=== PATIENT | female | born 1935 ===

== ENCOUNTER 2017-03-22 12:30 | Emergency (ER) | payer OTHER ==
[2017-03-22 12:39] VITALS: TEMP 98.1
[2017-03-22] MEDS ORDERED: Albuterol-Ipratrop 3 mg / 0.5 (3 ml) UD IH STA (13:38)
[2017-03-22 14:07] LABS: BASO # 0.1 K/uL (0.0-0.2); EOS # 0.3 K/uL (0.0-0.7); EOS % 4.7 % (0.0-4.0); HEMATOCRIT 27.7 % (34.0-47.0); LYMPH # 1.6 K/uL (1.0-4.3); LYMPH % 22.8 % (20.0-40.0); MEAN CELL VOLUME 70.3 fL (81.0-99.0); MEAN CORPUSCULAR HEMOGLOBIN 22.4 pg (27.0-31.0); MEAN CORPUSCULAR HGB CONC 31.8 g/dL (33.0-37.0); MEAN PLATELET VOLUME 8.6 fL (7.2-11.7); MONO # 0.9 K/uL (0.0-0.8); RED CELL DISTRIBUTION WIDTH 15.8 % (11.5-14.5)
[2017-03-22] MEDS ORDERED: Albuterol-Ipratrop 3 mg / 0.5 (3 ml) UD ONE (14:07)
[2017-03-22 14:19] LABS: CHLORIDE 100 mmol/L (98-107); POTASSIUM 4.6 mmol/L (3.6-5.2); SODIUM 137 mmol/L (132-148)
[2017-03-22 14:21] LABS: ALB/GLOB RATIO 1.2 (1.0-2.1); AST/SGOT 19 U/L (14-36); BILIRUBIN,TOTAL 0.5 mg/dL (0.2-1.3); CARBON DIOXIDE 22 mmol/L (22-30); GFR AFRICAN-AMERICAN > 60
[2017-03-22 14:22] LABS: ALKALINE PHOSPHATASE 57 U/L (38-126); ALT/SGPT 16 U/L (9-52); BLOOD UREA NITROGEN 24 mg/dL (7-17); CALCIUM 8.8 mg/dl (8.6-10.4); GLUCOSE,RANDOM 236 mg/dL (65-105); MAGNESIUM 1.8 mg/dL (1.6-2.3)
--- NOTE | 2017-03-22 14:39 | RAD ---
PROCEDURE: CHEST RADIOGRAPH, 1 VIEW. Portable study 13:40. HISTORY: Cough COMPARISON: None available. FINDINGS: LUNGS: Clear. PLEURA: No pneumothorax or pleural fluid seen. CARDIOVASCULAR: No radiographic findings to suggest acute or significant cardiovascular disease. OSSEOUS STRUCTURES: No significant abnormalities. VISUALIZED UPPER ABDOMEN: Normal. OTHER FINDINGS: None. IMPRESSION: No active disease.
--- NOTE | 2017-03-22 15:48 | C.PDOC ---
Time Seen by Provider: 03/22/17 13:28 Chief Complaint (Nursing): Cough, Cold, Congestion History Per: Patient, Family Onset/Duration Of Symptoms: Days (about 1 week) Current Symptoms Are (Timing): Still Present Associated Symptoms: Cough, Sputum Severity: Moderate Additional History Per: Prior Records Past Medical History Reviewed: Historical Data, Nursing Documentation, Vital Signs Vital Signs: Last Vital Signs Temp 98.1 F 03/22/17 12:39 Pulse 71 03/22/17 14:59 Resp 20 03/22/17 14:59 BP 162/45 H 03/22/17 14:59 Pulse Ox 97 03/22/17 14:59 - Medical History PMH: Arthritis, Diabetes, HTN, Hypercholesterolemia, Osteoporosis Family History: States: Unknown Family Hx - Social History Hx Tobacco Use: No Hx Alcohol Use: No Hx Substance Use: No - Immunization History Hx Tetanus Toxoid Vaccination: No Hx Influenza Vaccination: No Hx Pneumococcal Vaccination: No Review Of Systems Except As Marked, All Systems Reviewed And Found Negative. Constitutional: Negative for: Fever, Weakness ENT: Positive for: Nose Congestion, Throat Pain Cardiovascular: Negative for: Chest Pain Respiratory: Positive for: Cough, Sputum. Negative for: Shortness of Breath, Hemoptysis Gastrointestinal: Negative for: Vomiting, Abdominal Pain Musculoskeletal: Negative for: Neck Pain, Back Pain, Leg Pain Skin: Negative for: Rash Neurological: Negative for: Weakness, Numbness, Seizures, Altered Mental Status Physical Exam - Physical Exam Appears: Non-toxic, No Acute Distress Skin: Normal Color, Warm, Dry, No Rash Head: Atraumatic, Normacephalic Eye(s): bilateral: PERRL, EOMI Throat: Normal Neck: Normal ROM, Supple Cardiovascular: Rhythm Regular Respiratory: No Accessory Muscle Use, Rhonchi (left) Gastrointestinal/Abdominal: Soft, No Tenderness Back: No CVA Tenderness Extremity: Normal ROM, No Pedal Edema, No Calf Tenderness Neurological/Psych: Oriented x3, Normal Motor, Normal Sensation ED Course And Treatment - Laboratory Results Result Diagrams: 03/22/17 13:57 03/22/17 13:57 Interpretation Of Abnormal: Anemia ECG: Interpreted By Me, Viewed By Me ECG Rhythm: Sinus Rhythm, 1st Degree HB, Nonspecific Changes ECG Interpretation: No Acute Changes Rate From EC O2 Sat by Pulse Oximetry: 97 Pulse Ox Interpretation: Normal - Radiology CXR: Viewed By Me, Read By Radiologist CXR Interpretation: Yes: No Acute Disease Progress - Interventions Interventions:: Observation - Medications Administered Inhaled nebulized: Anticholinergic, Beta-2 agonist - Data Reviewed Data Reviewed: Lab, Diagnostic imaging, EKG, Old records - Patient Status Patient status: Mostly improved - Continuity of Care Discussed patient case with:: Patient, Family-HIPPA compliant, ED Nurse - Patient Plan Patient Plan: Discharge, F/U with PCP, Continue present meds Disposition Counseled Patient/Family Regarding: Studies Performed, Diagnosis, Need For Followup, Rx Given - Disposition Referrals: Heath Morales MD [Staff Provider] - Disposition: HOME/ ROUTINE Disposition Time: 15:48 Condition: IMPROVED Additional Instructions: Follow up with your doctor within 1-2 days for further evaluation and treatment. Return to the ER if you develop shortness of breath, chest pain, fever, dizziness, worsening of symptoms or if you have any other concerns. Prescriptions: Albuterol HFA [Ventolin HFA 90 mcg/actuation (8 g)] 2 puff IH Q4 PRN #1 unit PRN Reason: Cough And Congestion Azithromycin 1 tab PO DAILY #4 tab Loratadine [Claritin] 10 mg PO DAILY #30 tab Multivit with Iron-Minerals [Centravites 50 Plus] 1 each PO DAILY #30 tablet Instructions: Acute Bronchitis (ED) Print Language: CHINESE - Clinical Impression Clinical Impression: Bronchitis, Anemia
[2017-03-22 16:02] VITALS: BP 169/49; PULSE 70; RESP 18; O2SAT 98
== END 2017-03-22 16:02 | disposition home or self-care (01) ==
LOC: C.ER 12:30
DX: J40 Bronchitis, not specified as acute or chronic (principal); D64.9 Anemia, unspecified

== ENCOUNTER 2017-09-10 12:54 | Inpatient (IN) | payer OTHER ==
[2017-09-10] MEDS ORDERED: Sodium Chloride 0.9% 1,000 ML IV ONE ×2 (13:36→17:32)
[2017-09-10 14:05] LABS: BASO % 0.6 % (0.0-2.0); EOS # 0.2 K/uL (0.0-0.7); EOS % 3.4 % (0.0-4.0); HEMATOCRIT 28.3 % (34.0-47.0); LYMPH # 1.3 K/uL (1.0-4.3); LYMPH % 25.5 % (20.0-40.0); MEAN CELL VOLUME 71.7 fL (81.0-99.0); MEAN CORPUSCULAR HEMOGLOBIN 22.5 pg (27.0-31.0); MEAN CORPUSCULAR HGB CONC 31.4 g/dL (33.0-37.0); MEAN PLATELET VOLUME 9.1 fL (7.2-11.7); MONO # 0.7 K/uL (0.0-0.8); MONO % 13.3 % (0.0-10.0); NRBC % 0.1 % (0.0-2.0); RED CELL DISTRIBUTION WIDTH 16.2 % (11.5-14.5); WHITE BLOOD COUNT 5.2 K/uL (4.8-10.8)
[2017-09-10 14:14] LABS: INR 0.9
[2017-09-10 14:18] LABS: VENOUS BLOOD GAS BASE EXCESS -6.2 mmol/L (0.0-2.0); VENOUS BLOOD GAS PCO2 36 mmHg (40-60); VENOUS BLOOD PH 7.33 (7.32-7.43)
[2017-09-10 14:25] LABS: BILIRUBIN,TOTAL 0.4 mg/dL (0.2-1.3); CALCIUM 8.5 mg/dl (8.6-10.4); POTASSIUM 4.5 mmol/L (3.6-5.2); TOTAL PROTEIN 8.3 g/dL (6.3-8.3)
[2017-09-10 15:03] LABS: URINE BILIRUBIN NEGATIVE (NEGATIVE); URINE BLOOD NEGATIVE (NEGATIVE); URINE COLOR Yellow (YELLOW); URINE GLUCOSE (UA) NORMAL (Normal); URINE KETONE NEGATIVE (NEGATIVE); URINE LEUKOCYTE ESTERASE NEG Leu/uL (Negative); URINE PROTEIN 1+ mg/dL (NEGATIVE); URINE UROBILINOGEN NORMAL mg/dL (0.2-1.0); WBC URINE < 1 /hpf (0-5)
[2017-09-10 15:05] LABS: TROPONIN I 0.646 ng/mL (0.00-0.120)
[2017-09-10] MEDS ORDERED: Aspirin 325 mg EC Tablets PO STA (16:20)
--- NOTE | 2017-09-10 16:32 | RAD ---
PROCEDURE: CHEST RADIOGRAPH, 1 VIEW HISTORY: Hypotension COMPARISON: Comparison chest 03/22/2017 FINDINGS: LUNGS: Minor bibasilar atelectasis. PLEURA: There is slight blunting of the left CP angle which could be due to patient positioning and overlying breast tissue artifact however the possibility of small effusion or localized pleural thickening not excluded CARDIOVASCULAR: Heart size is mildly enlarged. OSSEOUS STRUCTURES: Degenerative changes both shoulder girdles. Mild multilevel degenerative spondylosis of the thoracic spine. The VISUALIZED UPPER ABDOMEN: Normal. OTHER FINDINGS: None. IMPRESSION: Minor bibasilar atelectasis. Slight blunting left CP angle could be due to patient positioning and overlying breast tissue artifact however possibility of a small effusion localized pleural thickening not excluded
--- NOTE | 2017-09-10 16:45 | C.PDOC ---
Time Seen by Provider: 09/10/17 13:22 Chief Complaint (Nursing): Dizziness/Lightheaded History Per: Patient, Family, Senior Care Specialist History/Exam Limitations: language barrier Onset/Duration Of Symptoms: Days (4), Waxing/Waning Current Symptoms Are (Timing): Still Present Current Symptoms: Generalized weakness Associated Symptoms Preceding Syncopal Episode: Lightheadedness, Worse With Standing Severity: Moderate Additional History Per: Prior Records - Symptoms Of CVA Recent Head Trauma: No Past Medical History Reviewed: Historical Data, Nursing Documentation, Vital Signs Vital Signs: Last Vital Signs Temp 97.6 F 09/10/17 13:52 Pulse 65 09/10/17 16:41 Resp 16 09/10/17 16:41 BP 124/34 L 09/10/17 16:41 Pulse Ox 96 09/10/17 16:41 - Medical History PMH: Anemia, Arthritis, Diabetes, HTN, Hypercholesterolemia, Osteoporosis Family History: States: Unknown Family Hx - Social History Hx Tobacco Use: No Hx Alcohol Use: No Hx Substance Use: No - Immunization History Hx Tetanus Toxoid Vaccination: No Hx Influenza Vaccination: No Hx Pneumococcal Vaccination: No Review Of Systems Except As Marked, All Systems Reviewed And Found Negative. Constitutional: Positive for: Weakness, Malaise. Negative for: Fever Cardiovascular: Negative for: Chest Pain Respiratory: Negative for: Shortness of Breath, Hemoptysis Gastrointestinal: Positive for: Nausea. Negative for: Abdominal Pain, Diarrhea Genitourinary: Negative for: Dysuria Musculoskeletal: Negative for: Neck Pain, Back Pain Skin: Negative for: Rash Neurological: Negative for: Weakness, Seizures, Headache Physical Exam - Physical Exam Appears: Other (Malaised) Skin: Warm, Dry Head: Atraumatic, Normacephalic Eye(s): bilateral: PERRL, EOMI Neck: Normal ROM, Supple Cardiovascular: Rhythm Regular Respiratory: Normal Breath Sounds, No Accessory Muscle Use Gastrointestinal/Abdominal: Soft, No Tenderness Rectal: Heme Negative, No Mass Back: No CVA Tenderness Extremity: Normal ROM Neurological/Psych: Oriented x3, Normal Motor, Normal Sensation ED Course And Treatment - Laboratory Results Result Diagrams: 09/10/17 13:52 09/10/17 13:52 Interpretation Of Abnormal: Acute renal failure. Positive troponin. Hgb is stable. ECG: Interpreted By Me, Viewed By Me ECG Rhythm: Sinus Rhythm, 1st Degree HB, Nonspecific Changes ECG Interpretation: No Acute Changes Rate From EC O2 Sat by Pulse Oximetry: 96 Pulse Ox Interpretation: Normal - Radiology CXR: Viewed By Me, Read By Radiologist CXR Interpretation: Yes: Other (Possible small left pleural effusion) Progress Note: Pt was found to be hypotensive upon arrival, but BP improved after 1L IV bolus of NS. - Physician Consult Information Physician Contacted: Elvis Dunbar (Cardiology) Outcome Of Conversation: He will consult. He recommeds giving pt aspirin and admitting to telemetry. Progress - Interventions Interventions:: Observation, Intravenous fluid - Medications Administered Oral: Aspirin - Data Reviewed Data Reviewed: Lab, Diagnostic imaging, EKG, Old records - Patient Status Patient status: Partially improved - Critical Care Citical Care: Excluding Proc Time Critical Care Time: 45 minutes - Continuity of Care Discussed patient case with:: Patient, Family-HIPPA compliant, ED Nurse, Covering for PMD Discussed pt. case with emergency management consultant/specialty: Cardiology - Patient Plan Patient Plan: Admission, Telemetry Disposition Discussed With : Poly Weaver Comment: She accepted pt on hospitalist service. Doctor Will See Patient In The: Hospital Counseled Patient/Family Regarding: Studies Performed, Diagnosis - Disposition Disposition: HOSPITALIZED Disposition Time: 16:49 Condition: FAIR - Clinical Impression Clinical Impression: Transient hypotension, Elevated troponin I level, Acute renal failure, Anemia
[2017-09-10] MEDS ORDERED: Sodium Chloride 0.9% 1,000 ML IV SCH ×2 (17:00→21:15)
[2017-09-10] MEDS ORDERED: Dextrose 50% SYRINGE Inj (50 ml) IV PRN (17:21)
[2017-09-10] MEDS ORDERED: Glucagon Recombinant 1 mg Inj IM PRN (17:21)
--- NOTE | 2017-09-10 18:03 | CP.PCM.HP ---
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 She denies all symptoms currently other than generalized muscle aches/ pain. She denies fevers/chills, LU, CP, SOB, abdominal pain, N/V/D, dysuria/freq /urg, or lower extremity swelling. The patient has lower extremity pain on baseline, which she states is not worse than usual. As per family at bedside, they say that she has been sleeping a lot more than normal the last few months and just doesn't seem like herself. They also state that her clothes arent fitting because she isn't eating as much as she used to, and they're essentially falling off of her. Pmhx: HTN, DM, HLD, "angina (on meds) Allergies: none Surgeries: lower extremity surgery; could not qualify which ones; patient cannot bend knees at baseline Meds: Amlodipine, Hctz/Losartan, Hydralazine, Lasix, Metformin, Glipizide, Statin Social: lives with daughter; can walk up stairs independently at baseline with cane; cooks for self, feeds self, changes self, bathes self, indepdent in ADL and most IADL at baseline Present on Admission - Present on Admission Any Indicators Present on Admission: Yes History of DVT/PE: No History of Uncontrolled Diabetes: Yes Urinary Catheter: No Decubitus Ulcer Present: No Review of Systems - Constitutional Constitutional: absent: Anorexia, Chills - EENT Eyes: absent: Blind Spots, Blurred Vision Ears: absent: Decreased Hearing Nose/Mouth/Throat: absent: Epistaxis, Nasal Congestion - Breasts Breasts: absent: Change in Shape - Cardiovascular Cardiovascular: absent: Acrocyanosis, Chest Pain - Respiratory Respiratory: absent: Cough, Dyspnea, Hemoptysis - Gastrointestinal Gastrointestinal: absent: Abdominal Pain, Belching - Genitourinary Genitourinary: Nocturia, Urinary Incontinence, Urinary Urgency. absent: Change in Urinary Stream, Freq UTI - Musculoskeletal Musculoskeletal: Abnormal Gait, Arthralgias - Neurological Neurological: absent: Abnormal Gait Additional comments: walks with cane - Psychiatric Psychiatric: Abnormal Sleep Pattern (sleeping more than usual ) - Endocrine Endocrine: Cold Intolorance, Fatigue Past Patient History - Infectious Disease Hx of Infectious Diseases: None - Past Social History Smoking Status: Never Smoked - CARDIAC Hx Hypercholesterolemia: Yes Hx Hypertension: Yes - ENDOCRINE/METABOLIC Hx Endocrine Disorders: Yes Hx Diabetes Mellitus Type 2: Yes - HEMATOLOGICAL/ONCOLOGICAL Hx Anemia: Yes - MUSCULOSKELETAL/RHEUMATOLOGICAL Hx Arthritis: Yes Hx Osteoporosis: Yes - PSYCHIATRIC Hx Substance Use: No - SURGICAL HISTORY Hx Surgeries: Yes Hx Orthopedic Surgery: Yes (LEFT KNEE) Other/Comment: Right leg - ANESTHESIA Hx Anesthesia: Yes Hx Anesthesia Reactions: No Meds Allergies/Adverse Reactions: Allergies Allergy/AdvReac Type Severity Reaction Status Date / Time No Known Allergies Allergy Verified 09/10/17 13:16 Physical Exam - Constitutional Appears: Non-toxic, Chronically Ill - Head Exam Head Exam: ATRAUMATIC - Eye Exam Eye Exam: EOMI, PERRL - ENT Exam ENT Exam: Mucous Membranes Dry - Neck Exam Neck exam: Positive for: Full Rom. Negative for: Lymphadenopathy - Respiratory Exam Respiratory Exam: Clear to Auscultation Bilateral, NORMAL BREATHING PATTERN ( patient is in reverse trendelenberg with no SOB; patient should be sitting more upright in bed ). absent: Rales, Rhonchi, Wheezes - Cardiovascular Exam Cardiovascular Exam: REGULAR RHYTHM, +S1, +S2 - GI/Abdominal Exam GI & Abdominal Exam: Normal Bowel Sounds, Soft. absent: Organomegaly, Pulsatile Mass, Rebound, Rigid, Tenderness - Extremities Exam Extremities exam: Negative for: calf tenderness (patient has visible muscle spasms on exam; fasiculations ) - Back Exam Back exam: NORMAL INSPECTION. absent: CVA tenderness (L), CVA tenderness (R) - Neurological Exam Additional comments: patient is lethargic but arousable to verbal cues - Psychiatric Exam Psychiatric exam: Flat Affect - Skin Skin Exam: Warm Results - Vital Signs Recent Vital Signs: Last Vital Signs Temp 97.6 F 09/10/17 13:52 Pulse 65 09/10/17 16:41 Resp 16 09/10/17 16:41 BP 124/34 L 09/10/17 16:41 Pulse Ox 96 09/10/17 16:50 - Labs Result Diagrams: 09/10/17 13:52 09/10/17 13:52 Labs: Laboratory Results - last 24 hr 09/10/17 09/10/17 09/10/17 13:04 13:52 13:52 WBC 5.2 RBC 3.95 Hgb 8.9 L Hct 28.3 L MCV 71.7 L MCH 22.5 L MCHC 31.4 L RDW 16.2 H Plt Count 197 MPV 9.1 Neut % (Auto) 57.2 Lymph % (Auto) 25.5 [place] % (Auto) 13.3 H Eos % (Auto) 3.4 Baso % (Auto) 0.6 Neut # 3.0 Lymph # 1.3 [place] # 0.7 Eos # 0.2 Baso # 0.0 PT INR APTT pO2 VBG pH VBG pCO2 VBG HCO3 VBG Total CO2 VBG O2 Sat (Calc) VBG Base Excess VBG Potassium Glucose Lactate Sodium 131 L Potassium 4.5 Chloride 97 L Carbon Dioxide 20 L Anion Gap 18 BUN 57 H Creatinine 3.0 H Est GFR ( Amer) 18 Est GFR (Non-Af Amer) 15 POC Glucose (mg/dL) 135 H Random Glucose 106 H Calcium 8.5 L Total Bilirubin 0.4 AST 33 ALT 41 Alkaline Phosphatase 62 Troponin I 0.6460 H* NT-Pro-B Natriuret Pep 39361 H Total Protein 8.3 Albumin 4.1 Globulin 4.2 H Albumin/Globulin Ratio 1.0 Triglycerides Cholesterol HDL Cholesterol Venous Blood Potassium Urine Color Urine Clarity Urine pH Ur Specific Mccleary Urine Protein Urine Glucose (UA) Urine Ketones Urine Blood Urine Nitrate Urine Bilirubin Urine Urobilinogen Ur Leukocyte Esterase Urine WBC (Auto) Stool Occult Blood 09/10/17 09/10/17 09/10/17 13:52 14:15 14:46 WBC RBC Hgb Hct MCV MCH MCHC RDW Plt Count MPV Neut % (Auto) Lymph % (Auto) [place] % (Auto) Eos % (Auto) Baso % (Auto) Neut # Lymph # [place] # Eos # Baso # PT 10.3 INR 0.9 APTT 34 pO2 35 VBG pH 7.33 VBG pCO2 36 L VBG HCO3 19.1 VBG Total CO2 20.1 L VBG O2 Sat (Calc) 73.4 H VBG Base Excess -6.2 L VBG Potassium 4.2 Glucose 115 H Lactate 1.1 Sodium 136.0 Potassium Chloride 109.0 H Carbon Dioxide Anion Gap BUN Creatinine Est GFR ( Amer) Est GFR (Non-Af Amer) POC Glucose (mg/dL) Random Glucose Calcium Total Bilirubin AST ALT Alkaline Phosphatase Troponin I NT-Pro-B Natriuret Pep Total Protein Albumin Globulin Albumin/Globulin Ratio Triglycerides Cholesterol HDL Cholesterol Venous Blood Potassium 4.2 Urine Color Yellow Urine Clarity Clear Urine pH 5.0 Ur Specific Mccleary 1.008 Urine Protein 1+ H Urine Glucose (UA) Normal Urine Ketones Negative Urine Blood Negative Urine Nitrate Negative Urine Bilirubin Negative Urine Urobilinogen Normal Ur Leukocyte Esterase Neg Urine WBC (Auto) < 1 Stool Occult Blood 09/10/17 09/10/17 15:10 17:36 WBC RBC Hgb Hct MCV MCH MCHC RDW Plt Count MPV Neut % (Auto) Lymph % (Auto) [place] % (Auto) Eos % (Auto) Baso % (Auto) Neut # Lymph # [place] # Eos # Baso # PT INR APTT pO2 VBG pH VBG pCO2 VBG HCO3 VBG Total CO2 VBG O2 Sat (Calc) VBG Base Excess VBG Potassium Glucose Lactate Sodium Potassium Chloride Carbon Dioxide Anion Gap BUN Creatinine Est GFR ( Amer) Est GFR (Non-Af Amer) POC Glucose (mg/dL) Random Glucose Calcium Total Bilirubin AST ALT Alkaline Phosphatase Troponin I NT-Pro-B Natriuret Pep Total Protein Albumin Globulin Albumin/Globulin Ratio Triglycerides 97 Cholesterol 138 HDL Cholesterol 33 Venous Blood Potassium Urine Color Urine Clarity Urine pH Ur Specific Mccleary Urine Protein Urine Glucose (UA) Urine Ketones Urine Blood Urine Nitrate Urine Bilirubin Urine Urobilinogen Ur Leukocyte Esterase Urine WBC (Auto) Stool Occult Blood Negative Assessment & Plan - Assessment and Plan (Free Text) Assessment: 81yo F admitted for hypotension responsive to fluids, BERYL and polypharmacy BERYL -baseline creatinine .7-1.0 from previous (from March 2017); currently 3.0; check BMP tonight -patient is taking 5 blood pressure lowering drugs, and has not been eating/ drinking normally for few weeks -BP went from 60s/30s to 124/60 after 1L -patient is not retaining from bladder scan; no hx of renal stones; UA clean -Nephrology on board; does not think patient needs dialysis at this time; appreciate recs CHF; most likely chronic however no previous ECHO; most likely acute on chronic -BNP 14k; previous before that was 1k -no SOB, no lower extrem swelling, no CHF on Chest X-Ray -can be 2/2 to extreme dehydration -f/u echo -f/u HbA1c, TSH/Free T4, Lipid Panel Elevated Troponin -Dr. Garcia; Cardiology on Consult; does not think is ACS -patient appears severely dehydrated clinically and on blood work -ROMIx3; initial .604; f/u Q6H HTN hx -held amlodipine 10mg -held losartan/Hctz -held furosemide 40mg -held hydralazine -held isosorbide mononitrate -will monitor HLD hx -Crestor 2.5mg DM hx -Riss Low -Hypoglycemia protocol Unintentional Weight Loss/Failure to Thrive -As per family; patient has not been eating as much as previous and has been more lethargic/forgetful -f/u procal/blood cultures/urine cultures -patient has no hx of dementia however is forgetful on exam -no fam hx of cancer Proph Heparin SC 5000 Q8 Heart Healthy Diet Dispo: patient was accepted to ICU; will continue to monitor there Case discussed and seen with Dr. Weaver Decision To Admit - Pt Status Changed To: Hospital Disposition Of: Inpatient - Admit Certification Admit to Inpatient:: After my assessment, the patient will require hospitalization for at least two midnights. This is because of the severity of symptoms shown, intensity of services needed, and/or the medical risk in this patient being treated as an outpatient. - InPatient: Physician Admission Certification:: NSTEMI BERYL hypotension - . Bed Request Type: ICU Admitting Physician: Poly Weaver <Poly Weaver V - Last Filed: 09/11/17 09:28> Results - Vital Signs Recent Vital Signs: Last Vital Signs Temp 97.8 F 09/11/17 08:00 Pulse 72 09/11/17 08:51 Resp 19 09/11/17 08:51 BP 115/36 L 09/11/17 08:51 Pulse Ox 99 09/11/17 08:51 - Labs Result Diagrams: 09/11/17 03:03 09/11/17 03:03 Labs: Laboratory Results - last 24 hr 09/10/17 09/10/17 09/10/17 13:04 13:52 13:52 WBC 5.2 RBC 3.95 Hgb 8.9 L Hct 28.3 L MCV 71.7 L MCH 22.5 L MCHC 31.4 L RDW 16.2 H Plt Count 197 MPV 9.1 Neut % (Auto) 57.2 Lymph % (Auto) 25.5 [place] % (Auto) 13.3 H Eos % (Auto) 3.4 Baso % (Auto) 0.6 Neut # 3.0 Lymph # 1.3 [place] # 0.7 Eos # 0.2 Baso # 0.0 PT INR APTT pO2 VBG pH VBG pCO2 VBG HCO3 VBG Total CO2 VBG O2 Sat (Calc) VBG Base Excess VBG Potassium Glucose Lactate Sodium 131 L Potassium 4.5 Chloride 97 L Carbon Dioxide 20 L Anion Gap 18 BUN 57 H Creatinine 3.0 H Est GFR ( Amer) 18 Est GFR (Non-Af Amer) 15 POC Glucose (mg/dL) 135 H Random Glucose 106 H Hemoglobin A1c Calcium 8.5 L Iron TIBC % Saturation Total Bilirubin 0.4 AST 33 ALT 41 Alkaline Phosphatase 62 Total Creatine Kinase CK-MB (Mass) Troponin I 0.6460 H* NT-Pro-B Natriuret Pep 00929 H Total Protein 8.3 Albumin 4.1 Globulin 4.2 H Albumin/Globulin Ratio 1.0 Triglycerides Cholesterol LDL Cholesterol Direct HDL Cholesterol Procalcitonin Free T4 TSH 3rd Generation Venous Blood Potassium Urine Color Urine Clarity Urine pH Ur Specific Mccleary Urine Protein Urine Glucose (UA) Urine Ketones Urine Blood Urine Nitrate Urine Bilirubin Urine Urobilinogen Ur Leukocyte Esterase Urine WBC (Auto) Urine Osmolality Ur Random Creatinine Ur Random Sodium Stool Occult Blood 09/10/17 09/10/17 09/10/17 13:52 14:15 14:46 WBC RBC Hgb Hct MCV MCH MCHC RDW Plt Count MPV Neut % (Auto) Lymph % (Auto) [place] % (Auto) Eos % (Auto) Baso % (Auto) Neut # Lymph # [place] # Eos # Baso # PT 10.3 INR 0.9 APTT 34 pO2 35 VBG pH 7.33 VBG pCO2 36 L VBG HCO3 19.1 VBG Total CO2 20.1 L VBG O2 Sat (Calc) 73.4 H VBG Base Excess -6.2 L VBG Potassium 4.2 Glucose 115 H Lactate 1.1 Sodium 136.0 Potassium Chloride 109.0 H Carbon Dioxide Anion Gap BUN Creatinine Est GFR ( Amer) Est GFR (Non-Af Amer) POC Glucose (mg/dL) Random Glucose Hemoglobin A1c Calcium Iron TIBC % Saturation Total Bilirubin AST ALT Alkaline Phosphatase Total Creatine Kinase CK-MB (Mass) Troponin I NT-Pro-B Natriuret Pep Total Protein Albumin Globulin Albumin/Globulin Ratio Triglycerides Cholesterol LDL Cholesterol Direct HDL Cholesterol Procalcitonin Free T4 TSH 3rd Generation Venous Blood Potassium 4.2 Urine Color Yellow Urine Clarity Clear Urine pH 5.0 Ur Specific Mccleary 1.008 Urine Protein 1+ H Urine Glucose (UA) Normal Urine Ketones Negative Urine Blood Negative Urine Nitrate Negative Urine Bilirubin Negative Urine Urobilinogen Normal Ur Leukocyte Esterase Neg Urine WBC (Auto) < 1 Urine Osmolality Ur Random Creatinine Ur Random Sodium Stool Occult Blood 09/10/17 09/10/17 09/10/17 15:10 17:11 17:36 WBC RBC Hgb Hct MCV MCH MCHC RDW Plt Count MPV Neut % (Auto) Lymph % (Auto) [place] % (Auto) Eos % (Auto) Baso % (Auto) Neut # Lymph # [place] # Eos # Baso # PT INR APTT pO2 VBG pH VBG pCO2 VBG HCO3 VBG Total CO2 VBG O2 Sat (Calc) VBG Base Excess VBG Potassium Glucose Lactate Sodium Potassium Chloride Carbon Dioxide Anion Gap BUN Creatinine Est GFR ( Amer) Est GFR (Non-Af Amer) POC Glucose (mg/dL) Random Glucose Hemoglobin A1c Calcium Iron TIBC % Saturation Total Bilirubin AST ALT Alkaline Phosphatase Total Creatine Kinase CK-MB (Mass) Troponin I NT-Pro-B Natriuret Pep Total Protein Albumin Globulin Albumin/Globulin Ratio Triglycerides 97 Cholesterol 138 LDL Cholesterol Direct 82 HDL Cholesterol 33 Procalcitonin < 0.05 L Free T4 TSH 3rd Generation 2.18 Venous Blood Potassium Urine Color Urine Clarity Urine pH Ur Specific Mccleary Urine Protein Urine Glucose (UA) Urine Ketones Urine Blood Urine Nitrate Urine Bilirubin Urine Urobilinogen Ur Leukocyte Esterase Urine WBC (Auto) Urine Osmolality Ur Random Creatinine Ur Random Sodium Stool Occult Blood Negative 09/10/17 09/10/17 09/10/17 17:36 17:36 20:14 WBC RBC Hgb Hct MCV MCH MCHC RDW Plt Count MPV Neut % (Auto) Lymph % (Auto) [place] % (Auto) Eos % (Auto) Baso % (Auto) Neut # Lymph # [place] # Eos # Baso # PT INR APTT pO2 VBG pH VBG pCO2 VBG HCO3 VBG Total CO2 VBG O2 Sat (Calc) VBG Base Excess VBG Potassium Glucose Lactate Sodium Potassium Chloride Carbon Dioxide Anion Gap BUN Creatinine Est GFR ( Amer) Est GFR (Non-Af Amer) POC Glucose (mg/dL) 124 H Random Glucose Hemoglobin A1c 7.8 H Calcium Iron TIBC % Saturation Total Bilirubin AST ALT Alkaline Phosphatase Total Creatine Kinase CK-MB (Mass) Troponin I NT-Pro-B Natriuret Pep Total Protein Albumin Globulin Albumin/Globulin Ratio Triglycerides Cholesterol LDL Cholesterol Direct HDL Cholesterol Procalcitonin Free T4 1.84 TSH 3rd Generation Venous Blood Potassium Urine Color Urine Clarity Urine pH Ur Specific M[place]leary Urine Protein Urine Glucose (UA) Urine Ketones Urine Blood Urine Nitrate Urine Bilirubin Urine Urobilinogen Ur Leukocyte Esterase Urine WBC (Auto) Urine Osmolality Ur Random Creatinine Ur Random Sodium Stool Occult Blood 09/10/17 09/11/17 09/11/17 20:40 01:32 03:03 WBC 5.2 RBC 3.22 L Hgb 7.4 L Hct 23.1 L MCV 71.8 L MCH 23.0 L MCHC 32.0 L RDW 16.5 H Plt Count 178 MPV 9.2 Neut % (Auto) 51.4 Lymph % (Auto) 30.1 [place] % (Auto) 15.2 H Eos % (Auto) 2.1 Baso % (Auto) 1.2 Neut # 2.7 Lymph # 1.6 [place] # 0.8 Eos # 0.1 Baso # 0.1 PT INR APTT pO2 VBG pH VBG pCO2 VBG HCO3 VBG Total CO2 VBG O2 Sat (Calc) VBG Base Excess VBG Potassium Glucose Lactate Sodium 129 L Potassium 4.0 Chloride 103 Carbon Dioxide 15 L Anion Gap 16 BUN 49 H Creatinine 2.5 H Est GFR ( Amer) 22 Est GFR (Non-Af Amer) 18 POC Glucose (mg/dL) Random Glucose 98 Hemoglobin A1c Calcium 7.7 L Iron TIBC % Saturation Total Bilirubin AST ALT Alkaline Phosphatase Total Creatine Kinase 188 H CK-MB (Mass) 2.55 Troponin I 0.4850 H* NT-Pro-B Natriuret Pep Total Protein Albumin Globulin Albumin/Globulin Ratio Triglycerides Cholesterol LDL Cholesterol Direct HDL Cholesterol Procalcitonin Free T4 TSH 3rd Generation Venous Blood Potassium Urine Color Urine Clarity Urine pH Ur Specific [place] Urine Protein Urine Glucose (UA) Urine Ketones Urine Blood Urine Nitrate Urine Bilirubin Urine Urobilinogen Ur Leukocyte Esterase Urine WBC (Auto) Urine Osmolality 287 L Ur Random Creatinine 60.5 Ur Random Sodium 17 Stool Occult Blood 09/11/17 09/11/17 09/11/17 03:03 05:28 07:16 WBC RBC Hgb Hct MCV MCH MCHC RDW Plt Count MPV Neut % (Auto) Lymph % (Auto) [place] % (Auto) Eos % (Auto) Baso % (Auto) Neut # Lymph # [place] # Eos # Baso # PT INR APTT pO2 VBG pH VBG pCO2 VBG HCO3 VBG Total CO2 VBG O2 Sat (Calc) VBG Base Excess VBG Potassium Glucose Lactate Sodium 132 Potassium 4.2 Chloride 103 Carbon Dioxide 17 L Anion Gap 17 BUN 49 H Creatinine 2.3 H Est GFR ( Amer) 25 Est GFR (Non-Af Amer) 20 POC Glucose (mg/dL) 124 H Random Glucose 89 Hemoglobin A1c Calcium 7.7 L Iron 44 TIBC 220 L % Saturation 20 Total Bilirubin 0.4 AST 58 H D ALT 47 Alkaline Phosphatase 43 Total Creatine Kinase 185 H CK-MB (Mass) 3.49 H Troponin I 0.5510 H* NT-Pro-B Natriuret Pep Total Protein 6.5 Albumin 3.2 L D Globulin 3.3 Albumin/Globulin Ratio 1.0 Triglycerides Cholesterol LDL Cholesterol Direct HDL Cholesterol Procalcitonin Free T4 TSH 3rd Generation Venous Blood Potassium Urine Color Urine Clarity Urine pH Ur Specific [place] Urine Protein Urine Glucose (UA) Urine Ketones Urine Blood Urine Nitrate Urine Bilirubin Urine Urobilinogen Ur Leukocyte Esterase Urine WBC (Auto) Urine Osmolality Ur Random Creatinine Ur Random Sodium Stool Occult Blood Attending/Attestation - Attestation I have personally seen and examined this patient.: Yes I have fully participated in the care of the patient.: Yes I have reviewed all pertinent clinical information: Yes Notes (Text): This is late computer entry for 09/10/17. Patient seen, examined and case discussed with day-time resident. 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 Patient seen at bedside, with patient's brother and niece, who speak Georgian helping to translate. Patient lives in apartment, which is about 8 steps up. Patient normal walks with cane. Per family patient reports has tired, lethargic , weak for past couple of days. Patient takes medications daily for her diabetes , hypertension, and osteoarthritis. Her medications including: Amlodipine, Hctz/ Losartan, Hydralazine, Lasix, Metformin, Glipizide, Statin. No history of falls , no recent falls. Patient has not had a good appetite as of late, and reports unintentional weights loss and her clothing feeling looser. Patient eating white plantains but does not appear to be eating well-balanced diet. At bedside , patient reports she feels hot and cold and wants to be wrapped in blankets. In the ED: 1356: VS: BP: 67/36, HR 63, Spo2: 98% T: 97.6F In the ED, patient had received 1 NS Fluid Bolus. Patient is urinating post bolus. Blood pressure improved post-bolus Discussed with cardiology in regards to nonstemi, likely secondary to acute kidney function; recommends for aspirin and statin at this time, Bladder scan performed by nurse at bedside: no evidence of retention. Nephrology consult on the case. Discussed with ICU, patient accepted to critical care unit. Assessment/Plan 1) Acute Renal Insufficiency * Nephrology (Dr. Alatorre)-->help appreciated; Dr. Gan called back, resident discussed the case, does not think patient needs dialysis at this time; * Prior baseline creatinine .7-1.0 from previous (from March 2017); currently 3.0 ; recheck BMP tonight post fluid bolus * held nephrotoxic agents * Patient received 1 fluid bolus * Discussed with ICU, for gentle IV hydration * Patient is not retaining from bladder scan; no hx of renal stones; UA clean; pending urine culture 2) Elevated ProBNP Possible CHF * Patient has no prior history of CHF, no prior echocardiogram to review * Elevated ProBNP on admission * no SOB, no lower extrem swelling, no CHF on Chest X-Ray * f/u echo * f/u HbA1c, TSH/Free T4, Lipid Panel 3) NONSTEMI * Dr. Dunbar (cardiology) help appreciated, reviewed case, believes troponin secondary to the acute renal failure * Recommend for aspirin, statin, eventually beta-felipe/michela pending improvements in blood pressure and kidney function * ROMIx3; initial .604; f/u Q6H * In the ED on admission, given Aspirin 325mg PO X1, order for Aspirin 81mg PO daily 4) History of Hypertension Hypotension * f/u procal/blood cultures/urine cultures * In ED, patient had receive 1 NS L Bolus; patient is clinically dry, in [place] * Home medications: * held amlodipine 10mg, held losartan/Hctz, held furosemide 40mg, held hydralazine, held isosorbide mononitrate 5) Lipid Disorder * start low dose statin given kidney function * Crestor 2.5mg PO qHS 6) History of Diabetes * Home medication: Metformin, Glipizide, Statin; held on admission * Regluar insuling sliding subq Low * Hypoglycemia protocol * check a1c, and lipid panel 7) History of Anemia * Cannot recall what workup she has had; pmd away on vacation * Monitor H/H 8) Prophylaxis * Heparin 5000 units Q8H * Heart Healthy Diet * Given protonix 40mg IV X1 in the ED * Patient is full code per discussion with her niece and brother at bedside, no offcial health proxy
[2017-09-10 19:42] LABS: THYROID STIMULATING HORMONE 2.18 mIU/L (0.46-4.68)
--- NOTE | 2017-09-10 20:24 | CON ---
CARDIOLOGY CONSULTATION REASON FOR CONSULTATION: Hypotension. HISTORY OF PRESENT ILLNESS: The patient is an 81-year-old female, who has a history of hypertension, diabetes mellitus and arthritis. The patient was brought in by the family because of weakness, abdominal pain and vomiting. The patient was also reported to be hypotensive by the family who took the blood pressure at home. The patient in the emergency room was noticed to be hypotensive and required IV fluid infusion. Initial blood pressure in the ER was 67/36, which improved after IV fluid. The patient's symptoms started 1 day before Thanksgiving and she could not participate in Thanksgiving dinner because of her abdominal discomfort. There is no report of syncope or fall by the family. I did obtain the history from the patient and daughter on the phone and the patient's daughter at the bedside as well as the emergency room physician, Dr. Alves. No known prior cardiac history. PAST MEDICAL HISTORY: Hypertension and osteoarthritis. SOCIAL HISTORY: The patient is a nonsmoker. MEDICATIONS: The patient did received aspirin 325 mg as a stat dose in the emergency room and Protonix 40 mg intravenously as a stat dose beside normal saline infusion. REVIEW OF SYSTEMS: No chest pain. No shortness of breath. No productive cough. No fever or chills. PHYSICAL EXAMINATION: GENERAL: The patient is an elderly female, who does not appear to be in any acute distress. VITAL SIGNS: Blood pressure 112/38, heart rate 65, temperature 97.6, respirations 18. HEENT: Pale conjunctivae. CHEST: Clear. HEART: S1 and S2 regular. ABDOMEN: Soft. EXTREMITIES: There is no edema. LABORATORY DATA: SMA-7: Sodium 131, potassium 4.5, chloride 97, CO2 of 20, glucose 106, BUN 57, creatinine 3.0. The patient's BUN and creatinine in 07/2017 was 24 and 1.0 respectively. ProBNP is 14,800. Troponin is borderline elevated 0.646. PT, PTT and INR are within normal limit. Hemoglobin and hematocrit 8.9 and 28.3. White count and platelet count are within normal limit. The patient's hemoglobin and hematocrit in 03/2017 were similar values. EKG revealed sinus rhythm with first-degree AV block with nonspecific ST-segment changes. Stool occult blood is negative. ASSESSMENT: 1. Hypotension. Rule out underlying sepsis. 2. Acute renal failure. Rule out prerenal azotemia. 3. Borderline troponin elevation. Rule out mny-[id number] myocardial infarction. 4. Rule out sepsis. 5. Rule out underlying congestive heart failure. RECOMMENDATIONS: Case was discussed with the emergency room team. Continue IV hydration. I will start the patient on daily oral aspirin and Crestor. Consider beta blockers when the blood pressure is stable. Obtain an echocardiogram and monitor the EKGs and serial cardiac enzymes. Obtain 2 sets of blood cultures as well as urine culture. Elvis Dunbar MD
[2017-09-10 21:00] LABS: CALCIUM 7.7 mg/dl (8.6-10.4)
--- NOTE | 2017-09-10 21:03 | CP.PCM.CON ---
History of Present Illness - History of Present Illness History of Present Illness: 81 y/o female with pmx of HTN, Dm presents to [facility] with c/o dizziness /tinnitus and abdominal pain with poor appetite. Patient c/o double vision, denies any chest pain, denies any abdominal pain, denies any chest pain. PMX: HTN, Dm Psurgical history: leg surgery meds: please see EMR Review of Systems - Review of Systems All systems: reviewed and no additional remarkable complaints except - Constitutional Constitutional: absent: Increased Appetite - Cardiovascular Cardiovascular: absent: Chest Pain - Respiratory Respiratory: absent: Dyspnea on Exertion, Wheezing, Snoring, Pain on Inspiration , Chest Congestion - Neurological Additional comments: tinnitus ad dizzines (room is spinning) Past Patient History - Infectious Disease Hx of Infectious Diseases: None - Past Medical History & Family History Past Medical History?: Yes - Past Social History Smoking Status: Never Smoked - CARDIAC Hx Hypercholesterolemia: Yes Hx Hypertension: Yes - PULMONARY Hx Respiratory Disorders: No - HEENT Hx HEENT Problems: No - RENAL Hx Chronic Kidney Disease: No - ENDOCRINE/METABOLIC Hx Endocrine Disorders: Yes Hx Diabetes Mellitus Type 2: Yes - HEMATOLOGICAL/ONCOLOGICAL Hx Anemia: Yes - INTEGUMENTARY Hx Dermatological Problems: No - MUSCULOSKELETAL/RHEUMATOLOGICAL Hx Arthritis: Yes Hx Osteoporosis: Yes - GASTROINTESTINAL Hx Gastrointestinal Disorders: No - GENITOURINARY/GYNECOLOGICAL Hx Genitourinary Disorders: No - PSYCHIATRIC Hx Psychophysiologic Disorder: No Hx Substance Use: No - SURGICAL HISTORY Hx Surgeries: Yes Hx Orthopedic Surgery: Yes (LEFT KNEE) Other/Comment: Right leg - ANESTHESIA Hx Anesthesia: Yes Hx Anesthesia Reactions: No Meds Allergies/Adverse Reactions: Allergies Allergy/AdvReac Type Severity Reaction Status Date / Time No Known Allergies Allergy Verified 09/10/17 13:16 - Medications Medications: Current Medications Acetaminophen (Tylenol 325mg Tab) 650 mg PO Q6 PRN PRN Reason: Fever >100.4 F Dextrose (Dextrose 50% Inj) 0 ml IV STAT PRN; Protocol PRN Reason: Hypoglycemia Protocol Dextrose (Glutose 15) 0 gm PO ONCE PRN; Protocol PRN Reason: Hypoglycemia Protocol Glucagon (Glucagen Diagnostic Kit) 0 mg IM STAT PRN; Protocol PRN Reason: Hypoglycemia Protocol Heparin Sodium (Porcine) (Heparin) 5,000 units SC Q8 [facility] Dextrose (Dextrose 5% In Water 1000 Ml) 1,000 mls @ 0 mls/hr IV .Q0M PRN; Protocol; Per Protocol PRN Reason: Hypoglycemia Protocol Insulin Aspart (Novolog) 0 unit SC ACHS [facility] PRN Reason: Protocol Ondansetron HCl (Zofran Inj) 4 mg IVP Q6 PRN PRN Reason: Nausea/Vomiting Rosuvastatin Calcium (Crestor) 2.5 mg PO HS [facility] Physical Exam - Constitutional Appears: Non-toxic, No Acute Distress - Head Exam Head Exam: ATRAUMATIC, NORMAL INSPECTION, NORMOCEPHALIC - Eye Exam Eye Exam: EOMI, PERRL Additional comments: nystagmus slight left side dfast movement - Respiratory Exam Respiratory Exam: Clear to Auscultation Bilateral, NORMAL BREATHING PATTERN - Cardiovascular Exam Cardiovascular Exam: REGULAR RHYTHM, +S1, +S2, Systolic Murmur - GI/Abdominal Exam GI & Abdominal Exam: Normal Bowel Sounds - Extremities Exam Extremities exam: Positive for: calf tenderness - Neurological Exam Neurological exam: Oriented x3 - Psychiatric Exam Psychiatric exam: Normal Affect Results - Vital Signs Recent Vital Signs: Last Vital Signs Temp 98.0 F 09/10/17 18:57 Pulse 69 09/10/17 20:00 Resp 13 09/10/17 20:00 BP 135/36 L 09/10/17 19:51 Pulse Ox 94 L 09/10/17 20:00 - Labs Result Diagrams: 09/10/17 13:52 09/10/17 20:40 Labs: Laboratory Results - last 24 hr 09/10/17 09/10/17 09/10/17 13:04 13:52 13:52 WBC 5.2 RBC 3.95 Hgb 8.9 L Hct 28.3 L MCV 71.7 L MCH 22.5 L MCHC 31.4 L RDW 16.2 H Plt Count 197 MPV 9.1 Neut % (Auto) 57.2 Lymph % (Auto) 25.5 [place] % (Auto) 13.3 H Eos % (Auto) 3.4 Baso % (Auto) 0.6 Neut # 3.0 Lymph # 1.3 [place] # 0.7 Eos # 0.2 Baso # 0.0 PT INR APTT pO2 VBG pH VBG pCO2 VBG HCO3 VBG Total CO2 VBG O2 Sat (Calc) VBG Base Excess VBG Potassium Glucose Lactate Sodium 131 L Potassium 4.5 Chloride 97 L Carbon Dioxide 20 L Anion Gap 18 BUN 57 H Creatinine 3.0 H Est GFR ( Amer) 18 Est GFR (Non-Af Amer) 15 POC Glucose (mg/dL) 135 H Random Glucose 106 H Calcium 8.5 L Total Bilirubin 0.4 AST 33 ALT 41 Alkaline Phosphatase 62 Total Creatine Kinase Troponin I 0.6460 H* NT-Pro-B Natriuret Pep 25481 H Total Protein 8.3 Albumin 4.1 Globulin 4.2 H Albumin/Globulin Ratio 1.0 Triglycerides Cholesterol LDL Cholesterol Direct HDL Cholesterol Procalcitonin Free T4 TSH 3rd Generation Venous Blood Potassium Urine Color Urine Clarity Urine pH Ur Specific [place] Urine Protein Urine Glucose (UA) Urine Ketones Urine Blood Urine Nitrate Urine Bilirubin Urine Urobilinogen Ur Leukocyte Esterase Urine WBC (Auto) Stool Occult Blood 09/10/17 09/10/17 09/10/17 13:52 14:15 14:46 WBC RBC Hgb Hct MCV MCH MCHC RDW Plt Count MPV Neut % (Auto) Lymph % (Auto) [place] % (Auto) Eos % (Auto) Baso % (Auto) Neut # Lymph # [place] # Eos # Baso # PT 10.3 INR 0.9 APTT 34 pO2 35 VBG pH 7.33 VBG pCO2 36 L VBG HCO3 19.1 VBG Total CO2 20.1 L VBG O2 Sat (Calc) 73.4 H VBG Base Excess -6.2 L VBG Potassium 4.2 Glucose 115 H Lactate 1.1 Sodium 136.0 Potassium Chloride 109.0 H Carbon Dioxide Anion Gap BUN Creatinine Est GFR ( Amer) Est GFR (Non-Af Amer) POC Glucose (mg/dL) Random Glucose Calcium Total Bilirubin AST ALT Alkaline Phosphatase Total Creatine Kinase Troponin I NT-Pro-B Natriuret Pep Total Protein Albumin Globulin Albumin/Globulin Ratio Triglycerides Cholesterol LDL Cholesterol Direct HDL Cholesterol Procalcitonin Free T4 TSH 3rd Generation Venous Blood Potassium 4.2 Urine Color Yellow Urine Clarity Clear Urine pH 5.0 Ur Specific [place] 1.008 Urine Protein 1+ H Urine Glucose (UA) Normal Urine Ketones Negative Urine Blood Negative Urine Nitrate Negative Urine Bilirubin Negative Urine Urobilinogen Normal Ur Leukocyte Esterase Neg Urine WBC (Auto) < 1 Stool Occult Blood 09/10/17 09/10/17 09/10/17 15:10 17:11 17:36 WBC RBC Hgb Hct MCV MCH MCHC RDW Plt Count MPV Neut % (Auto) Lymph % (Auto) [place] % (Auto) Eos % (Auto) Baso % (Auto) Neut # Lymph # [place] # Eos # Baso # PT INR APTT pO2 VBG pH VBG pCO2 VBG HCO3 VBG Total CO2 VBG O2 Sat (Calc) VBG Base Excess VBG Potassium Glucose Lactate Sodium Potassium Chloride Carbon Dioxide Anion Gap BUN Creatinine Est GFR ( Amer) Est GFR (Non-Af Amer) POC Glucose (mg/dL) Random Glucose Calcium Total Bilirubin AST ALT Alkaline Phosphatase Total Creatine Kinase Troponin I NT-Pro-B Natriuret Pep Total Protein Albumin Globulin Albumin/Globulin Ratio Triglycerides 97 Cholesterol 138 LDL Cholesterol Direct 82 HDL Cholesterol 33 Procalcitonin < 0.05 L Free T4 TSH 3rd Generation 2.18 Venous Blood Potassium Urine Color Urine Clarity Urine pH Ur Specific [place] Urine Protein Urine Glucose (UA) Urine Ketones Urine Blood Urine Nitrate Urine Bilirubin Urine Urobilinogen Ur Leukocyte Esterase Urine WBC (Auto) Stool Occult Blood Negative 09/10/17 09/10/17 09/10/17 17:36 20:14 20:40 WBC RBC Hgb Hct MCV MCH MCHC RDW Plt Count MPV Neut % (Auto) Lymph % (Auto) [place] % (Auto) Eos % (Auto) Baso % (Auto) Neut # Lymph # [place] # Eos # Baso # PT INR APTT pO2 VBG pH VBG pCO2 VBG HCO3 VBG Total CO2 VBG O2 Sat (Calc) VBG Base Excess VBG Potassium Glucose Lactate Sodium 129 L Potassium 4.0 Chloride 103 Carbon Dioxide 15 L Anion Gap 16 BUN 49 H Creatinine 2.5 H Est GFR ( Amer) 22 Est GFR (Non-Af Amer) 18 POC Glucose (mg/dL) 124 H Random Glucose 98 Calcium 7.7 L Total Bilirubin AST ALT Alkaline Phosphatase Total Creatine Kinase 188 H Troponin I NT-Pro-B Natriuret Pep Total Protein Albumin Globulin Albumin/Globulin Ratio Triglycerides Cholesterol LDL Cholesterol Direct HDL Cholesterol Procalcitonin Free T4 1.84 TSH 3rd Generation Venous Blood Potassium Urine Color Urine Clarity Urine pH Ur Specific [place] Urine Protein Urine Glucose (UA) Urine Ketones Urine Blood Urine Nitrate Urine Bilirubin Urine Urobilinogen Ur Leukocyte Esterase Urine WBC (Auto) Stool Occult Blood Assessment & Plan - Assessment and Plan (Free Text) Plan: -Dizziness/tinnitus: check CT head, possible BPPV -Acute renal failure: avoid nephrotoxic drugs, continue gently hydration, get UA /urine lytes, avoid ACEI -Chronic systolic heart failure: denies any chest pain: at risk of CAD: will benefit from asa, AV kaylene felipe, statin and echo -DM: check HBA1c, kep NO monitor BGm q6hrs -DVT/PUD ppx Patient remains stable with once system failure. -monitor urine output, no signs of obstruction d/w nursing - Date & Time Date: 09/10/17 Time: 21:09
[2017-09-10 21:10] LABS: TROPONIN I 0.485 ng/mL (0.00-0.120)
[2017-09-10] MEDS: Rosuvastatin Calcium 2.5 mg Tab PO SCH (21:41)
--- NOTE | 2017-09-10 21:51 | CT ---
EXAM: CT Head Without Intravenous Contrast CLINICAL HISTORY: 81 years old, female; Signs and symptoms; Dizziness; Additional info: Dizziness, tinitus TECHNIQUE: Axial computed tomography images of the head/brain without intravenous contrast. All CT scans at this facility use one or more dose reduction techniques, viz.: automated exposure control; ma/kV adjustment per patient size (including targeted exams where dose is matched to indication; i.e. head); or iterative reconstruction technique. COMPARISON: No relevant prior studies available. FINDINGS: Brain: [id number] atrophy. No intracranial hemorrhage. No mass. Few scattered foci of decreased attenuation within periventricular/subcortical white matter. No definite edema. Ventricles: No hydrocephalus. Bones/joints: No acute fracture. Soft tissues: Unremarkable. Vasculature: Atherosclerotic disease of intracranial arteries. Sinuses: Scattered minimal mucosal thickening. Few retention cysts. Mastoid air cells: No mastoid effusion. Orbits: Small calcification along RIGHT optic nerve. IMPRESSION: 1. Nonspecific white matter changes. Acute infarction may be CT occult within first 24 hours. If a focal deficit persists, consider followup CT or MRI for further evaluation. 2. Incidental/non-acute findings are described above.
[2017-09-10] MEDS: (Novolog) Insulin Aspart, Recombinant 100 u/ml 10 ml vial SC SCH (21:53)
[2017-09-11 01:47] LABS: CREATININE, RANDOM URINE 60.5 mg/dL
[2017-09-11 03:12] LABS: BASO # 0.1 K/uL (0.0-0.2); BASO % 1.2 % (0.0-2.0); EOS # 0.1 K/uL (0.0-0.7); EOS % 2.1 % (0.0-4.0); HEMATOCRIT 23.1 % (34.0-47.0); LYMPH # 1.6 K/uL (1.0-4.3); LYMPH % 30.1 % (20.0-40.0); MEAN CELL VOLUME 71.8 fL (81.0-99.0); MEAN PLATELET VOLUME 9.2 fL (7.2-11.7); MONO # 0.8 K/uL (0.0-0.8); MONO % 15.2 % (0.0-10.0); RED CELL DISTRIBUTION WIDTH 16.5 % (11.5-14.5); WHITE BLOOD COUNT 5.2 K/uL (4.8-10.8)
[2017-09-11 03:34] LABS: BILIRUBIN,TOTAL 0.4 mg/dL (0.2-1.3); CALCIUM 7.7 mg/dl (8.6-10.4); POTASSIUM 4.2 mmol/L (3.6-5.2); TOTAL PROTEIN 6.5 g/dL (6.3-8.3)
[2017-09-11 03:46] LABS: TROPONIN I 0.551 ng/mL (0.00-0.120)
[2017-09-11 05:36] LABS: IRON 44 ug/dL (37-170)
--- NOTE | 2017-09-11 05:44 | PCM.PROC ---
Procedures Attestation:: I certify that I have explained the specified Operation(s) or Procedure(s), risks, benefits and reasonable alternatives to the Patient and/or other person responsible. The opportunity was given to ask questions and all questions answered - Central Line Placement Right Femoral Triple Lumen Catheter Aseptic technique was employed throughout the procedure: Full sterile barriers ( mask, hair cover, sterile gown, sterile gloves) CVP Time Out Performed: Yes Pt. Placed on Pulse Ox Monitor: Yes Central Line Prep: Chlorhexidine-Alcohol Combination Local Anesthesia Used: Lidocaine 1% Amount of Anesthesia Used (mls): 5 Ultrasound Used for Placement: Yes Central Line Lumen Inserted: triple Central Line Length: 16 cm Post Procedure: Sutured in Place Secured by: Suture Post procedure dressing: Gauze, Clear vapor permeable, Chlorhexidine disc ( Biopatch) Post Procedure X-Ray: No Patient Tolerated Procedure: Well Immediate Complications: None
--- NOTE | 2017-09-11 07:34 | RAD ---
EXAM: XR Chest, 1 View EXAM DATE/TIME: 09/11/2017 6:22 AM CLINICAL HISTORY: 81 years old, female; Signs and symptoms; Dyspnea TECHNIQUE: Frontal view of the chest. COMPARISON: No relevant prior studies available. FINDINGS: Lungs: Increased and indistinct pulmonary vascularity. No consolidation. Pleural space: Possible bilateral small pleural effusions. No pneumothorax. Heart: Unremarkable. No cardiomegaly. Mediastinum: Unremarkable. Bones/joints: Degenerative changes of AC joints. IMPRESSION: Pulmonary vascular congestion.
--- NOTE | 2017-09-11 08:30 | CP.PCM.PN ---
<ElviaIshan lucio - Last Filed: 09/11/17 17:53> Objective - Vital Signs/Intake and Output Vital Signs (last 24 hours): Temp Pulse Resp BP Pulse Ox 98.3 F 97 H 30 H 153/98 H 96 09/11/17 16:00 09/11/17 17:19 09/11/17 17:19 09/11/17 17:19 09/11/17 17:19 Intake and Output: 09/11/17 09/11/17 06:59 18:59 Intake Total 878 600 Output Total 200 875 Balance 678 -275 - Medications Medications: Current Medications Acetaminophen (Tylenol 325mg Tab) 650 mg PO Q6 PRN PRN Reason: Fever >100.4 F Aspirin (Ecotrin) 81 mg PO DAILY [facility] Last Admin: 09/11/17 10:43 Dose: 81 mg Dextrose (Dextrose 50% Inj) 0 ml IV STAT PRN; Protocol PRN Reason: Hypoglycemia Protocol Dextrose (Glutose 15) 0 gm PO ONCE PRN; Protocol PRN Reason: Hypoglycemia Protocol Glucagon (Glucagen Diagnostic Kit) 0 mg IM STAT PRN; Protocol PRN Reason: Hypoglycemia Protocol Heparin Sodium (Porcine) (Heparin) 5,000 units SC Q12 [facility] Dextrose (Dextrose 5% In Water 1000 Ml) 1,000 mls @ 0 mls/hr IV .Q0M PRN; Protocol; Per Protocol PRN Reason: Hypoglycemia Protocol Lactated Ringer's (Lactated Ringer's) 1,000 mls @ 100 mls/hr IV .Q10H [facility] Last Admin: 09/11/17 11:39 Dose: 100 mls/hr Insulin Aspart (Novolog) 0 unit SC ACHS [facility] PRN Reason: Protocol Last Admin: 09/11/17 16:40 Dose: Not Given Ondansetron HCl (Zofran Inj) 4 mg IVP Q6 PRN PRN Reason: Nausea/Vomiting Last Admin: 09/11/17 17:20 Dose: 4 mg Pantoprazole Sodium (Protonix Inj) 40 mg IVP DAILY [facility] Last Admin: 09/11/17 10:43 Dose: 40 mg Rosuvastatin Calcium (Crestor) 2.5 mg PO HS [facility] Last Admin: 09/10/17 21:41 Dose: 2.5 mg - Labs Labs: 09/11/17 17:11 09/11/17 17:11 PT 10.3 SECONDS (9.7-12.2) 09/10/17 13:52 INR 0.9 09/10/17 13:52 APTT 34 SECONDS (21-34) 09/10/17 13:52 <Poly Weaver V - Last Filed: 09/11/17 23:49> Subjective - Date & Time of Evaluation Date of Evaluation: 09/11/17 Time of Evaluation: 08:20 - Subjective Subjective: Medical Attending Note Patient is currently on Bipap. Patient is complaining about urination, advised she has cui at bedside. No family present at bedside. Objective - Vital Signs/Intake and Output Vital Signs (last 24 hours): Temp Pulse Resp BP Pulse Ox 97.8 F 90 21 154/49 H 96 09/11/17 04:00 09/11/17 07:45 09/11/17 07:00 09/11/17 06:51 09/11/17 07:00 Intake and Output: 09/11/17 09/11/17 06:59 18:59 Intake Total 878 Output Total 200 200 Balance 678 -200 - Medications Medications: Current Medications Acetaminophen (Tylenol 325mg Tab) 650 mg PO Q6 PRN PRN Reason: Fever >100.4 F Aspirin (Ecotrin) 81 mg PO DAILY [facility] Dextrose (Dextrose 50% Inj) 0 ml IV STAT PRN; Protocol PRN Reason: Hypoglycemia Protocol Dextrose (Glutose 15) 0 gm PO ONCE PRN; Protocol PRN Reason: Hypoglycemia Protocol Glucagon (Glucagen Diagnostic Kit) 0 mg IM STAT PRN; Protocol PRN Reason: Hypoglycemia Protocol Dextrose (Dextrose 5% In Water 1000 Ml) 1,000 mls @ 0 mls/hr IV .Q0M PRN; Protocol; Per Protocol PRN Reason: Hypoglycemia Protocol Insulin Aspart (Novolog) 0 unit SC ACHS [facility] PRN Reason: Protocol Last Admin: 09/10/17 21:53 Dose: Not Given Ondansetron HCl (Zofran Inj) 4 mg IVP Q6 PRN PRN Reason: Nausea/Vomiting Rosuvastatin Calcium (Crestor) 2.5 mg PO HS [facility] Last Admin: 09/10/17 21:41 Dose: 2.5 mg - Labs Labs: 09/11/17 03:03 09/11/17 03:03 PT 10.3 SECONDS (9.7-12.2) 09/10/17 13:52 INR 0.9 09/10/17 13:52 APTT 34 SECONDS (21-34) 09/10/17 13:52 - Head Exam Head Exam: NORMAL INSPECTION - Eye Exam Eye Exam: EOMI, PERRL. absent: Nystagmus, Scleral icterus - ENT Exam ENT Exam: Mucous Membranes Moist - Respiratory Exam Respiratory Exam: Decreased Breath Sounds. absent: Wheezes, Stridor - Cardiovascular Exam Cardiovascular Exam: REGULAR RHYTHM, +S1, +S2 - GI/Abdominal Exam GI & Abdominal Exam: Soft, Normal Bowel Sounds. absent: Distended, Firm, Guarding, Rigid, Tenderness, Rebound - Extremities Exam Extremities Exam: Normal Capillary Refill. absent: Pedal Edema, Tenderness - Back Exam Back Exam: absent: CVA tenderness (L), CVA tenderness (R) - Neurological Exam Neurological Exam: Alert, Awake, Oriented x3 - Skin Skin Exam: Dry, Intact, Normal Color, Warm Additional comments: better hydrated compare to yesterday Assessment and Plan (1) Acute renal failure Assessment & Plan: 09/11 * Nephrology on the case * BUN/Cr improving * On gentle IV hydration overnight; iv fluids d/c this AM * held nephrotoxic medications on admission * Has cui * monitor intake and output Status: Acute (2) Non-STEMI (non-ST elevated myocardial infarction) Assessment & Plan: 09/11 * Cardiology Dr. Dunbar on board-->help appreciated * Elevated Troponin: 0.6460-->0.4850-->0.5510 * Aspirin 325mg PO on admission * On Aspirin 81mg PO daily Status: Acute (3) Diabetes Assessment & Plan: a1c: 7.8 Hypoglycemia protocol Crestor 2.5mg PO qHS off metformin, glipize, statin on admission given acute renal failure Novolog sliding scale Status: Chronic (4) Hypotension Assessment & Plan: fluids d/c this morning due to crackles on exam Patient's blood pressure improved overnight off anti-hypertensives Status: Acute (5) Hypertension Assessment & Plan: off anti-hypertensives IV fluids d/c overnight Status: Chronic (6) Anemia Assessment & Plan: retic count: 2.2 Iron: 44 TIBC: 220 iron saturation: 20 Ferritin: 31 Occult blood negative Status: Chronic (7) Elevated brain natriuretic peptide (BNP) level Assessment & Plan: elevated on admission pending echocardiogram Status: Acute (8) Polypharmacy Assessment & Plan: held home medications on admission including diabetic and diuretic medications given acute renal failure Status: Acute (9) Pneumonia Assessment & Plan: Ordered CT chest w/o contrast by cardiology afebrile crackles on exam this morning Status: Suspected (10) Vertigo Assessment & Plan: Ct head: negative on admission Patient has seen previously Dr. lange (neurology) in the past Status: Acute (11) Prophylactic measure Assessment & Plan: Protonix 40mg IV q daily Heparin 5000 units [id number] Status: Acute - Assessment and Plan (Free Text) Assessment: Note PMD: Dr Morales-->should follow-up in the morning to determine what workup in regards to her vertigo and anemia she has had. Patient has seen Dr. Lange as neurology in the past note: please disregard, Dr Gan's name on the note. It is likely in error. This is the hospitalist note covering for this patient.
[2017-09-11] MEDS: (Novolog) Insulin Aspart, Recombinant 100 u/ml 10 ml vial SC SCH ×4 (08:57→21:24)
[2017-09-11] MEDS ORDERED: Enoxaparin 30 mg Syringe SC SCH (10:00)
[2017-09-11] MEDS ORDERED: Lactated Ringer's 1,000 ML IV SCH (11:00)
--- NOTE | 2017-09-11 12:18 | CP.PCM.PN ---
Subjective - Date & Time of Evaluation Date of Evaluation: 09/11/17 Time of Evaluation: 12:00 - Subjective Subjective: Patient is oriented x3, still continues to be dizzy with nausea with change in head position. Intermittently breaths fast when nauseated but has maintained spo2, bp, hr suggesting secondary resp response rather sob. Spoke in presence of sister with general manager in training. Objective - Vital Signs/Intake and Output Vital Signs (last 24 hours): Temp Pulse Resp BP Pulse Ox 97.8 F 82 13 120/31 L 98 09/11/17 08:00 09/11/17 11:11 09/11/17 11:00 09/11/17 10:51 09/11/17 11:00 Intake and Output: 09/11/17 09/11/17 06:59 18:59 Intake Total 878 Output Total 200 550 Balance 678 -550 - Medications Medications: Current Medications Acetaminophen (Tylenol 325mg Tab) 650 mg PO Q6 PRN PRN Reason: Fever >100.4 F Aspirin (Ecotrin) 81 mg PO DAILY [facility] Last Admin: 09/11/17 10:43 Dose: 81 mg Dextrose (Dextrose 50% Inj) 0 ml IV STAT PRN; Protocol PRN Reason: Hypoglycemia Protocol Dextrose (Glutose 15) 0 gm PO ONCE PRN; Protocol PRN Reason: Hypoglycemia Protocol Glucagon (Glucagen Diagnostic Kit) 0 mg IM STAT PRN; Protocol PRN Reason: Hypoglycemia Protocol Dextrose (Dextrose 5% In Water 1000 Ml) 1,000 mls @ 0 mls/hr IV .Q0M PRN; Protocol; Per Protocol PRN Reason: Hypoglycemia Protocol Lactated Ringer's (Lactated Ringer's) 1,000 mls @ 100 mls/hr IV .Q10H [facility] Last Admin: 09/11/17 11:39 Dose: 100 mls/hr Insulin Aspart (Novolog) 0 unit SC ACHS [facility] PRN Reason: Protocol Last Admin: 09/11/17 11:53 Dose: Not Given Ondansetron HCl (Zofran Inj) 4 mg IVP Q6 PRN PRN Reason: Nausea/Vomiting Last Admin: 09/11/17 10:43 Dose: 4 mg Pantoprazole Sodium (Protonix Inj) 40 mg IVP DAILY [facility] Last Admin: 09/11/17 10:43 Dose: 40 mg Rosuvastatin Calcium (Crestor) 2.5 mg PO HS [facility] Last Admin: 09/10/17 21:41 Dose: 2.5 mg - Labs Labs: 09/11/17 03:03 09/11/17 03:03 PT 10.3 SECONDS (9.7-12.2) 09/10/17 13:52 INR 0.9 09/10/17 13:52 APTT 34 SECONDS (21-34) 09/10/17 13:52 - Additional Findings Additional findings: * SHANTANU OTTO (see also neuro exam) * Neck Supple, no rigidity * CVS Regular, no gallop or rub * PA soft * Ext peripheral pulses present * Skin no edema, dry, reduced turgor * TREASURY REPRESENTATIVE no weakness, slight tremor in the left arm with finger to nose test, cannot do heal simons test due to arthritis, tremors in tongue noticed, speech is not slurred, gag present, severe dizziness with turning head or eyes side to side, plantars down going Assessment and Plan - Assessment and Plan (Free Text) Assessment: * Vertigo positional DD of being central * Dehydration probably form poor intake and being on diuretics * BERYL likely secondary to above, check fena again. * Anemia, history of same, may need transfusion * Elevated trop likely from renal insufficiency denies sob, ekg no acute signs, dd of nstemi * H/o HTN on multiple meds off all meds currently, porcalcitonin low, afebrile * Plan: * IVF, then prbc * MRI, brain, vs repeat CT for persistent neurological symptoms * FENa * GI/DVT prophylaxis * Echo * Symptomatic treatment for dizziness * Bipap to [place] * See orders for detail.
[2017-09-11 13:38] LABS: FOLATE > 20.0 ng/mL
[2017-09-11 17:21] LABS: BASO % 0.7 % (0.0-2.0); EOS % 0.2 % (0.0-4.0); HEMATOCRIT 24.1 % (34.0-47.0); LYMPH # 1.3 K/uL (1.0-4.3); LYMPH % 22.7 % (20.0-40.0); MEAN CELL VOLUME 72.6 fL (81.0-99.0); MEAN CORPUSCULAR HEMOGLOBIN 22.6 pg (27.0-31.0); MEAN CORPUSCULAR HGB CONC 31.2 g/dL (33.0-37.0); MONO # 0.8 K/uL (0.0-0.8); MONO % 13.2 % (0.0-10.0); NRBC % 0.1 % (0.0-2.0); RED CELL DISTRIBUTION WIDTH 16.6 % (11.5-14.5); WHITE BLOOD COUNT 5.8 K/uL (4.8-10.8)
[2017-09-11 17:29] LABS: RBC URINE 6 /hpf (0-3); URINE BILIRUBIN NEGATIVE (NEGATIVE); URINE BLOOD 1+ (NEGATIVE); URINE COLOR Yellow (YELLOW); URINE GLUCOSE (UA) NORMAL (Normal); URINE KETONE TRACE mg/dL (NEGATIVE); URINE LEUKOCYTE ESTERASE 2+ Leu/uL (Negative); URINE PROTEIN 1+ mg/dL (NEGATIVE); URINE UROBILINOGEN NORMAL mg/dL (0.2-1.0); WBC URINE 19 /hpf (0-5)
[2017-09-11 17:38] LABS: ALB/GLOB RATIO 1.4 (1.0-2.1); BILIRUBIN,TOTAL 0.6 mg/dL (0.2-1.3); CALCIUM 7.8 mg/dl (8.6-10.4); POTASSIUM 4.6 mmol/L (3.6-5.2); TOTAL PROTEIN 6.1 g/dL (6.3-8.3)
--- NOTE | 2017-09-11 17:52 | CP.PCM.CON ---
History of Present Illness - History of Present Illness History of Present Illness: Patient seen and examined consult dictated Long hx of DM,HBP with normal creatinine in summer 2016 Admitted with creatinine 3,elevated troponin, lethary,loss of appetite Chest xray shows chf Would hold iv's give lasix renal ultrasound urine protein freelight chains cardilogy evaluation Past Patient History - Infectious Disease Hx of Infectious Diseases: None - Past Medical History & Family History Past Medical History?: Yes - Past Social History Smoking Status: Never Smoked - CARDIAC Hx Hypercholesterolemia: Yes Hx Hypertension: Yes - PULMONARY Hx Respiratory Disorders: No - HEENT Hx HEENT Problems: No - RENAL Hx Chronic Kidney Disease: No - ENDOCRINE/METABOLIC Hx Endocrine Disorders: Yes Hx Diabetes Mellitus Type 2: Yes - HEMATOLOGICAL/ONCOLOGICAL Hx Anemia: Yes - INTEGUMENTARY Hx Dermatological Problems: No - MUSCULOSKELETAL/RHEUMATOLOGICAL Hx Arthritis: Yes Hx Osteoporosis: Yes - GASTROINTESTINAL Hx Gastrointestinal Disorders: No - GENITOURINARY/GYNECOLOGICAL Hx Genitourinary Disorders: No - PSYCHIATRIC Hx Psychophysiologic Disorder: No Hx Substance Use: No - SURGICAL HISTORY Hx Surgeries: Yes Hx Orthopedic Surgery: Yes (LEFT KNEE) Other/Comment: Right leg - ANESTHESIA Hx Anesthesia: Yes Hx Anesthesia Reactions: No Meds Allergies/Adverse Reactions: Allergies Allergy/AdvReac Type Severity Reaction Status Date / Time No Known Allergies Allergy Verified 09/10/17 13:16 - Medications Medications: Current Medications Acetaminophen (Tylenol 325mg Tab) 650 mg PO Q6 PRN PRN Reason: Fever >100.4 F Aspirin (Ecotrin) 81 mg PO DAILY [facility] Last Admin: 09/11/17 10:43 Dose: 81 mg Dextrose (Dextrose 50% Inj) 0 ml IV STAT PRN; Protocol PRN Reason: Hypoglycemia Protocol Dextrose (Glutose 15) 0 gm PO ONCE PRN; Protocol PRN Reason: Hypoglycemia Protocol Glucagon (Glucagen Diagnostic Kit) 0 mg IM STAT PRN; Protocol PRN Reason: Hypoglycemia Protocol Heparin Sodium (Porcine) (Heparin) 5,000 units SC Q12 [facility] Dextrose (Dextrose 5% In Water 1000 Ml) 1,000 mls @ 0 mls/hr IV .Q0M PRN; Protocol; Per Protocol PRN Reason: Hypoglycemia Protocol Lactated Ringer's (Lactated Ringer's) 1,000 mls @ 100 mls/hr IV .Q10H [facility] Last Admin: 09/11/17 11:39 Dose: 100 mls/hr Insulin Aspart (Novolog) 0 unit SC ACHS [facility] PRN Reason: Protocol Last Admin: 09/11/17 16:40 Dose: Not Given Ondansetron HCl (Zofran Inj) 4 mg IVP Q6 PRN PRN Reason: Nausea/Vomiting Last Admin: 09/11/17 17:20 Dose: 4 mg Pantoprazole Sodium (Protonix Inj) 40 mg IVP DAILY [facility] Last Admin: 09/11/17 10:43 Dose: 40 mg Rosuvastatin Calcium (Crestor) 2.5 mg PO HS [facility] Last Admin: 09/10/17 21:41 Dose: 2.5 mg Results - Vital Signs Recent Vital Signs: Last Vital Signs Temp 98.3 F 09/11/17 16:00 Pulse 97 H 09/11/17 17:19 Resp 30 H 09/11/17 17:19 BP 153/98 H 09/11/17 17:19 Pulse Ox 96 09/11/17 17:19 - Labs Result Diagrams: 09/11/17 17:11 09/11/17 17:11 Labs: Laboratory Results - last 24 hr 09/10/17 09/10/17 09/10/17 17:11 17:36 17:36 WBC RBC Hgb Hct MCV MCH MCHC RDW Plt Count MPV Neut % (Auto) Lymph % (Auto) [place] % (Auto) Eos % (Auto) Baso % (Auto) Neut # Lymph # [place] # Eos # Baso # Retic Count Sodium Potassium Chloride Carbon Dioxide Anion Gap BUN Creatinine Est GFR ( Amer) Est GFR (Non-Af Amer) POC Glucose (mg/dL) Random Glucose Hemoglobin A1c 7.8 H Calcium Iron TIBC % Saturation Ferritin Total Bilirubin AST ALT Alkaline Phosphatase Total Creatine Kinase CK-MB (Mass) Troponin I Total Protein Albumin Globulin Albumin/Globulin Ratio Triglycerides 97 Cholesterol 138 LDL Cholesterol Direct 82 HDL Cholesterol 33 Vitamin B12 Folate Procalcitonin < 0.05 L Free T4 TSH 3rd Generation 2.18 Urine Color Urine Clarity Urine pH Ur Specific [place] Urine Protein Urine Glucose (UA) Urine Ketones Urine Blood Urine Nitrate Urine Bilirubin Urine Urobilinogen Ur Leukocyte Esterase Urine WBC (Auto) Urine RBC (Auto) Ur Squamous Epith Cells Hyaline Casts Urine Osmolality Ur Random Creatinine Ur Random Sodium 09/10/17 09/10/17 09/10/17 17:36 20:14 20:40 WBC RBC Hgb Hct MCV MCH MCHC RDW Plt Count MPV Neut % (Auto) Lymph % (Auto) [place] % (Auto) Eos % (Auto) Baso % (Auto) Neut # Lymph # [place] # Eos # Baso # Retic Count Sodium 129 L Potassium 4.0 Chloride 103 Carbon Dioxide 15 L Anion Gap 16 BUN 49 H Creatinine 2.5 H Est GFR ( Amer) 22 Est GFR (Non-Af Amer) 18 POC Glucose (mg/dL) 124 H Random Glucose 98 Hemoglobin A1c Calcium 7.7 L Iron TIBC % Saturation Ferritin Total Bilirubin AST ALT Alkaline Phosphatase Total Creatine Kinase 188 H CK-MB (Mass) 2.55 Troponin I 0.4850 H* Total Protein Albumin Globulin Albumin/Globulin Ratio Triglycerides Cholesterol LDL Cholesterol Direct HDL Cholesterol Vitamin B12 Folate Procalcitonin Free T4 1.84 TSH 3rd Generation Urine Color Urine Clarity Urine pH Ur Specific [place] Urine Protein Urine Glucose (UA) Urine Ketones Urine Blood Urine Nitrate Urine Bilirubin Urine Urobilinogen Ur Leukocyte Esterase Urine WBC (Auto) Urine RBC (Auto) Ur Squamous Epith Cells Hyaline Casts Urine Osmolality Ur Random Creatinine Ur Random Sodium 09/11/17 09/11/17 09/11/17 01:32 03:03 03:03 WBC 5.2 RBC 3.22 L Hgb 7.4 L Hct 23.1 L MCV 71.8 L MCH 23.0 L MCHC 32.0 L RDW 16.5 H Plt Count 178 MPV 9.2 Neut % (Auto) 51.4 Lymph % (Auto) 30.1 [place] % (Auto) 15.2 H Eos % (Auto) 2.1 Baso % (Auto) 1.2 Neut # 2.7 Lymph # 1.6 [place] # 0.8 Eos # 0.1 Baso # 0.1 Retic Count Sodium 132 Potassium 4.2 Chloride 103 Carbon Dioxide 17 L Anion Gap 17 BUN 49 H Creatinine 2.3 H Est GFR ( Amer) 25 Est GFR (Non-Af Amer) 20 POC Glucose (mg/dL) Random Glucose 89 Hemoglobin A1c Calcium 7.7 L Iron TIBC % Saturation Ferritin Total Bilirubin 0.4 AST 58 H D ALT 47 Alkaline Phosphatase 43 Total Creatine Kinase 185 H CK-MB (Mass) 3.49 H Troponin I 0.5510 H* Total Protein 6.5 Albumin 3.2 L D Globulin 3.3 Albumin/Globulin Ratio 1.0 Triglycerides Cholesterol LDL Cholesterol Direct HDL Cholesterol Vitamin B12 Folate Procalcitonin Free T4 TSH 3rd Generation Urine Color Urine Clarity Urine pH Ur Specific [place] Urine Protein Urine Glucose (UA) Urine Ketones Urine Blood Urine Nitrate Urine Bilirubin Urine Urobilinogen Ur Leukocyte Esterase Urine WBC (Auto) Urine RBC (Auto) Ur Squamous Epith Cells Hyaline Casts Urine Osmolality 287 L Ur Random Creatinine 60.5 Ur Random Sodium 17 09/11/17 09/11/17 09/11/17 05:28 07:16 11:27 WBC RBC Hgb Hct MCV MCH MCHC RDW Plt Count MPV Neut % (Auto) Lymph % (Auto) [place] % (Auto) Eos % (Auto) Baso % (Auto) Neut # Lymph # [place] # Eos # Baso # Retic Count Sodium Potassium Chloride Carbon Dioxide Anion Gap BUN Creatinine Est GFR ( Amer) Est GFR (Non-Af Amer) POC Glucose (mg/dL) 124 H 112 H Random Glucose Hemoglobin A1c Calcium Iron 44 TIBC 220 L % Saturation 20 Ferritin Total Bilirubin AST ALT Alkaline Phosphatase Total Creatine Kinase CK-MB (Mass) Troponin I Total Protein Albumin Globulin Albumin/Globulin Ratio Triglycerides Cholesterol LDL Cholesterol Direct HDL Cholesterol Vitamin B12 Folate Procalcitonin Free T4 TSH 3rd Generation Urine Color Urine Clarity Urine pH Ur Specific [place] Urine Protein Urine Glucose (UA) Urine Ketones Urine Blood Urine Nitrate Urine Bilirubin Urine Urobilinogen Ur Leukocyte Esterase Urine WBC (Auto) Urine RBC (Auto) Ur Squamous Epith Cells Hyaline Casts Urine Osmolality Ur Random Creatinine Ur Random Sodium 09/11/17 09/11/17 09/11/17 12:03 12:03 16:17 WBC RBC Hgb Hct MCV MCH MCHC RDW Plt Count MPV Neut % (Auto) Lymph % (Auto) [place] % (Auto) Eos % (Auto) Baso % (Auto) Neut # Lymph # [place] # Eos # Baso # Retic Count 2.2 H Sodium Potassium Chloride Carbon Dioxide Anion Gap BUN Creatinine Est GFR ( Amer) Est GFR (Non-Af Amer) POC Glucose (mg/dL) 91 Random Glucose Hemoglobin A1c Calcium Iron TIBC % Saturation Ferritin 31.3 Total Bilirubin AST ALT Alkaline Phosphatase Total Creatine Kinase CK-MB (Mass) Troponin I Total Protein Albumin Globulin Albumin/Globulin Ratio Triglycerides Cholesterol LDL Cholesterol Direct HDL Cholesterol Vitamin B12 > 1000 H Folate > 20.0 Procalcitonin Free T4 TSH 3rd Generation Urine Color Urine Clarity Urine pH Ur Specific [place] Urine Protein Urine Glucose (UA) Urine Ketones Urine Blood Urine Nitrate Urine Bilirubin Urine Urobilinogen Ur Leukocyte Esterase Urine WBC (Auto) Urine RBC (Auto) Ur Squamous Epith Cells Hyaline Casts Urine Osmolality Ur Random Creatinine Ur Random Sodium 09/11/17 09/11/17 09/11/17 17:11 17:11 17:11 WBC 5.8 RBC 3.32 L Hgb 7.5 L Hct 24.1 L MCV 72.6 L MCH 22.6 L MCHC 31.2 L RDW 16.6 H Plt Count 182 MPV 9.0 Neut % (Auto) 63.2 Lymph % (Auto) 22.7 [place] % (Auto) 13.2 H Eos % (Auto) 0.2 Baso % (Auto) 0.7 Neut # 3.6 Lymph # 1.3 [place] # 0.8 Eos # 0.0 Baso # 0.0 Retic Count Sodium Potassium Chloride Carbon Dioxide Anion Gap BUN Creatinine Est GFR ( Amer) Est GFR (Non-Af Amer) POC Glucose (mg/dL) Random Glucose Hemoglobin A1c Calcium Iron TIBC % Saturation Ferritin Total Bilirubin AST ALT Alkaline Phosphatase Total Creatine Kinase CK-MB (Mass) Troponin I Total Protein Albumin Globulin Albumin/Globulin Ratio Triglycerides Cholesterol LDL Cholesterol Direct HDL Cholesterol Vitamin B12 Folate Procalcitonin Free T4 TSH 3rd Generation Urine Color Yellow Urine Clarity Clear Urine pH 5.0 Ur Specific [place] 1.009 Urine Protein 1+ H Urine Glucose (UA) Normal Urine Ketones Trace Urine Blood 1+ H Urine Nitrate Negative Urine Bilirubin Negative Urine Urobilinogen Normal Ur Leukocyte Esterase 2+ H Urine WBC (Auto) 19 H Urine RBC (Auto) 6 H Ur Squamous Epith Cells 2 Hyaline Casts 6-10 H Urine Osmolality Ur Random Creatinine 55.3 Ur Random Sodium 58 09/11/17 17:11 WBC RBC Hgb Hct MCV MCH MCHC RDW Plt Count MPV Neut % (Auto) Lymph % (Auto) [place] % (Auto) Eos % (Auto) Baso % (Auto) Neut # Lymph # [place] # Eos # Baso # Retic Count Sodium 131 L Potassium 4.6 Chloride 102 Carbon Dioxide 14 L Anion Gap 21 H BUN 46 H Creatinine 2.2 H Est GFR ( Amer) 26 Est GFR (Non-Af Amer) 21 POC Glucose (mg/dL) Random Glucose 83 Hemoglobin A1c Calcium 7.8 L Iron TIBC % Saturation Ferritin Total Bilirubin 0.6 AST 36 D ALT 42 Alkaline Phosphatase 54 Total Creatine Kinase CK-MB (Mass) Troponin I Total Protein 6.1 L Albumin 3.6 Globulin 2.5 Albumin/Globulin Ratio 1.4 Triglycerides Cholesterol LDL Cholesterol Direct HDL Cholesterol Vitamin B12 Folate Procalcitonin Free T4 TSH 3rd Generation Urine Color Urine Clarity Urine pH Ur Specific [place] Urine Protein Urine Glucose (UA) Urine Ketones Urine Blood Urine Nitrate Urine Bilirubin Urine Urobilinogen Ur Leukocyte Esterase Urine WBC (Auto) Urine RBC (Auto) Ur Squamous Epith Cells Hyaline Casts Urine Osmolality Ur Random Creatinine Ur Random Sodium
[2017-09-11 18:35] LABS: CREATININE, RANDOM URINE 54.7 mg/dL
--- NOTE | 2017-09-11 20:37 | PN ---
SUBJECTIVE: The patient is still experiencing shortness of breath. No reported hypotension or ventricular tachycardia. PHYSICAL EXAMINATION: VITAL SIGNS: Blood pressure 130/43, heart rate 78, temperature 98.3, respirations 20. HEENT: Pale conjunctivae. CHEST: Right basal coarse crepitations. HEART: S1 and S2 regular. ABDOMEN: Soft. EXTREMITIES: No edema. LABORATORY DATA: Today's BUN and creatinine are 49 and 2.3, troponin is 0.55. Free T4 is below 0.05, hemoglobin and hematocrit 7.4 and 23.1, white count and platelet count are within normal limit. Today's chest x-ray revealed pulmonary vascular congestion, consider right lower lobe infiltrate. ASSESSMENT: 1. Status post hypotension. 2. Consider underlying pneumonia. 3. Anemia. 4. Rule out systolic heart failure. 5. Acute renal insufficiency. RECOMMENDATIONS: Continue Crestor 2.5 mg once a day, aspirin 81 mg once a day, subcutaneous heparin 5000 units twice a day. Obtain chest CT scan without contrast. Case was discussed with the hospitalist. Elvis Dunbar MD
[2017-09-11 20:39] LABS: ABG MECHANICAL RATE 16; DRAW SITE RBA
[2017-09-11] MEDS ORDERED: Sodium Bicarbonate (8.4%) 50 Meq Syringe IVP ONE (21:07)
[2017-09-11] MEDS: Rosuvastatin Calcium 2.5 mg Tab PO SCH (21:26)
--- NOTE | 2017-09-12 03:11 | CON ---
ATTENDING PHYSICIAN: Dr. Perkins. HISTORY OF PRESENT ILLNESS: Ms. Lazcano is an 81-year-old female who is being seen for acute kidney injury. Ms. Lazcano does not speak [place] and history was obtained from the family. Ms. Lazcano has a long history of hypertension and diabetes with serum creatinine of approximately 1 in 07/2016 and 03/2017. She was apparently well up until several days ago when her sugar became very labile and her blood pressure dropped. She also developed shortness of breath and lethargy. She lost her appetite and had periods of intermittent nausea. She was brought to the emergency room on the and admitted. On , her white count was 52,000, hemoglobin 8.9, hematocrit 28.3, platelet count of 197,000. PH was 7.33. Sodium was 131, potassium 4.5, chloride 97, CO2 of 20, BUN 57, creatinine 3, glucose was 135, hemoglobin A1c was 7.8, calcium 8.5, total bili 0.4, AST of 33, ALT of 41, alkaline phosphatase of 62, troponin 0.6460 and proBNP was 14,800, total protein was 8.3, albumin 4.1, globulin 4.2. Urine showed 1+ protein and negative blood. Stool guaiac was negative. In the emergency room, she was found to be hypotensive and given IV fluids with improvement in blood pressure. Today, her white count is 58,000, hemoglobin is 7.5, platelet count of 182,000. Sodium 131, potassium 4.6, chloride 102, CO2 of 14, BUN 46, creatinine 2.2, calcium 7.8. Total bili 0.6, total protein 6.1. Chest x-ray shows on and pulmonary vascular congestion. CT of the head showed [id number] atrophy. No hemorrhage, no mass and non-specific white matter changes. PAST MEDICAL HISTORY: Please see the above. No history of stoke, myocardial infarction, congestive heart failure. She has been [facility] to [facility] in the past. ALLERGIES: SHE HAS NO ALLERGIES. MEDICATIONS: Included aspirin and oral hypoglycemics. SOCIAL HISTORY: Negative for alcohol or drug abuse. She does not smoke. FAMILY HISTORY: Her family history is positive for hypertension. REVIEW OF SYSTEMS: Please see the above. There was no chest pain, cough or hemoptysis. There was no dysuria or gross hematuria. She has occasional urinary incontinence. She has had low back pain radiating to both legs with paresthesias for years. PHYSICAL EXAMINATION GENERAL: She was awake, on BiPAP, responded to her family, was oriented x3 and followed commands. VITAL SIGNS: Her blood pressure was 153/98, her pulse was 97, and her temperature was 98.3. NECK: There was no jugular venous distention from below at 80 to 90 degrees. LUNGS: Clear with prolonged inspiration and expiration. HEART: Rhythm was regular. ABDOMEN: Soft and nontender. Liver was felt 1 to 2 cm below the right costal margin, smooth and nontender. There was no presacral edema or CVA tenderness. Garcia was in place. There was no leg edema. IMPRESSION: Acute kidney injury, etiology not clear. Considerations include cardiorenal syndrome, congestive heart failure, cannot rule out underlying chronic kidney disease, cannot rule out obstruction, history of diabetes, history of hypertension, low-back pain, etiology unclear. We would discontinue IV fluids. IV Lasix. Renal ultrasound. Urine for protein and creatinine. Serum free light chains. Cardiology evaluation. Thank you for your kind referral. We will continue to follow with you. Sincerely, Ishan Gan MD
--- NOTE | 2017-09-12 05:51 | CP.PCM.PN ---
Subjective - Date & Time of Evaluation Date of Evaluation: 09/12/17 Time of Evaluation: 05:51 - Subjective Subjective: Patient has intermittent episodes of sob, responding to bipap, during one of these episodes last night abg 7.21/34/313 on bipap 80% fio2, suggesting uncompensated metabolic acidosis, patient's resp compensation is not adequate suggesting another component and anion gap in labs without lactate as 3rd acidosis component. Urine sodium was elevated due earlier given lasix. CXR was suggestive slight increase in interstitial fluid which may explain inadequate resp compensation. Above finding d/w nephrology Dr Gan, origin of the above events currently most likely is renal with quick worsening, EF and echo is pending. Patient given 2 amps of sodium bicarbonate and started on 1300mg sodium bicarbonate tid to limit fluid but correct acidosis. 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 Objective - Vital Signs/Intake and Output Vital Signs (last 24 hours): Temp Pulse Resp BP Pulse Ox 98.7 F 81 22 131/52 L 93 L 09/12/17 04:00 09/12/17 05:00 09/12/17 05:00 09/12/17 04:50 09/12/17 05:00 Intake and Output: 09/11/17 09/12/17 18:59 06:59 Intake Total 600 50 Output Total 710 365 Balance -110 -315 - Medications Medications: Current Medications Acetaminophen (Tylenol 325mg Tab) 650 mg PO Q6 PRN PRN Reason: Fever >100.4 F Aspirin (Ecotrin) 81 mg PO DAILY [facility] Last Admin: 09/11/17 10:43 Dose: 81 mg Dextrose (Dextrose 50% Inj) 0 ml IV STAT PRN; Protocol PRN Reason: Hypoglycemia Protocol Dextrose (Glutose 15) 0 gm PO ONCE PRN; Protocol PRN Reason: Hypoglycemia Protocol Glucagon (Glucagen Diagnostic Kit) 0 mg IM STAT PRN; Protocol PRN Reason: Hypoglycemia Protocol Heparin Sodium (Porcine) (Heparin) 5,000 units SC Q12 [facility] Last Admin: 09/11/17 21:28 Dose: 5,000 units Dextrose (Dextrose 5% In Water 1000 Ml) 1,000 mls @ 0 mls/hr IV .Q0M PRN; Protocol; Per Protocol PRN Reason: Hypoglycemia Protocol Insulin Aspart (Novolog) 0 unit SC ACHS [facility] PRN Reason: Protocol Last Admin: 09/11/17 21:24 Dose: Not Given Ondansetron HCl (Zofran Inj) 4 mg IVP Q6 PRN PRN Reason: Nausea/Vomiting Last Admin: 09/11/17 17:20 Dose: 4 mg Pantoprazole Sodium (Protonix Inj) 40 mg IVP DAILY [facility] Last Admin: 09/11/17 10:43 Dose: 40 mg Rosuvastatin Calcium (Crestor) 2.5 mg PO HS [facility] Last Admin: 09/11/17 21:26 Dose: 2.5 mg Sodium Bicarbonate (Sodium Bicarbonate Tab) 1,300 mg PO TID [facility] - Labs Labs: 09/11/17 17:11 09/11/17 17:11 PT 10.3 SECONDS (9.7-12.2) 09/10/17 13:52 INR 0.9 09/10/17 13:52 APTT 34 SECONDS (21-34) 09/10/17 13:52
[2017-09-12 06:04] LABS: VENOUS BLOOD GAS BASE EXCESS -9.5 mmol/L (0.0-2.0); VENOUS BLOOD GAS MODE BiPAP; VENOUS BLOOD GAS PCO2 39 mmHg (40-60); VENOUS BLOOD PH 7.25 (7.32-7.43)
[2017-09-12] MEDS ORDERED: Heparin25000 units/250ml 1/2NS 25,000 UNITS/250 ML BAG IV PRN (06:33)
[2017-09-12 06:45] LABS: BASO % 0.7 % (0.0-2.0); EOS % 0.2 % (0.0-4.0); HEMATOCRIT 21.6 % (34.0-47.0); LYMPH % 16.9 % (20.0-40.0); MEAN CELL VOLUME 72.6 fL (81.0-99.0); MEAN CORPUSCULAR HEMOGLOBIN 23.5 pg (27.0-31.0); MEAN CORPUSCULAR HGB CONC 32.4 g/dL (33.0-37.0); MEAN PLATELET VOLUME 9.7 fL (7.2-11.7); MONO # 0.9 K/uL (0.0-0.8); MONO % 14.9 % (0.0-10.0); NRBC % 0.1 % (0.0-2.0); RED CELL DISTRIBUTION WIDTH 16.5 % (11.5-14.5)
[2017-09-12 07:24] LABS: ALB/GLOB RATIO 1.3 (1.0-2.1); BILIRUBIN,TOTAL 0.8 mg/dL (0.2-1.3); CALCIUM 7.9 mg/dl (8.6-10.4); POTASSIUM 4.7 mmol/L (3.6-5.2); TOTAL PROTEIN 5.8 g/dL (6.3-8.3)
--- NOTE | 2017-09-12 07:48 | CP.CCUPN ---
<Bertin Wheat - Last Filed: 09/12/17 14:58> CCU Subjective - Physician Review Subjective (Free Text): PGY1 ICU Progress Note for Dr. Song Patient seen and examined this morning at bedside. Patient resting comfortably in bed while on BiPAP. Patient shakes her head no when asked if she has any complaints at this time. CCU Objective - Vital Signs / Intake & Output Vital Signs (Last 4 hours): Vital Signs Temp Pulse Resp BP Pulse Ox 09/12/17 06:16 77 09/12/17 06:13 75 19 119/43 L 93 L 09/12/17 05:00 81 22 93 L 09/12/17 04:50 131/52 L 09/12/17 04:00 98.7 F 77 17 95 09/12/17 03:51 125/46 L Intake and Output (Last 8hrs): Intake & Output 09/11/17 09/12/17 09/12/17 22:59 06:59 14:59 Intake Total 400 Output Total 305 210 Balance 95 -210 Intake: Intake, IV Amount 300 Left Antecubital 300 Oral 100 Output: Urine 305 210 Urethral (Garcia) 305 210 Other: # Bowel Movements 0 0 - Physical Exam Head: Positive for: Atraumatic, Normocephalic Extroacular Muscles: Positive for: EOMI Mouth: Positive for: Other (on BiPAP) Respiratory/Chest: Positive for: Clear to Auscultation, Respiratory Distress. Negative for: Accessory Muscle Use Cardiovascular: Positive for: Regular Rate and Rhythm, Normal S1, S2 Abdomen: Negative for: Tenderness, Distention Lower Extremity: Positive for: Other (SCDs in place). Negative for: CALF TENDERNESS Skin: Positive for: Warm, Dry Psychiatric: Positive for: Alert - Medications Active Medications: Active Medications Generic Name Dose Route Start Last Admin Trade Name Freq PRN Reason Stop Dose Admin Acetaminophen 650 mg 09/10/17 17:00 Tylenol 325mg Tab PO Q6 PRN Fever >100.4 F Aspirin 81 mg 09/11/17 10:00 09/11/17 10:43 Ecotrin PO 81 mg DAILY GLADYS Administration Dextrose 0 ml 09/10/17 17:21 Dextrose 50% Inj IV STAT PRN Hypoglycemia Protocol Protocol Dextrose 0 gm 09/10/17 17:21 Glutose 15 PO ONCE PRN Hypoglycemia Protocol Protocol Glucagon 0 mg 09/10/17 17:21 Glucagen Diagnostic Kit IM STAT PRN Hypoglycemia Protocol Protocol Heparin Sodium (Porcine) 5,000 units 09/11/17 22:00 09/11/17 21:28 Heparin SC 5,000 units Q12 GLADYS Administration Dextrose 1,000 mls @ 0 mls/hr 09/10/17 17:21 Dextrose 5% In Water 1000 Ml IV .Q0M PRN Hypoglycemia Protocol Protocol Per Protocol Heparin Sodium/Sodium Chloride 25,000 units in 250 mls @ 5.715 mls/hr 06:33 Heparin 69280 Units/250ml 1/2 Normal Saline IV .Q24H PRN ADJUST RATE PER PROTOCOL Protocol 12 UNITS/KG/HR Insulin Aspart 0 unit 09/10/17 22:00 09/11/17 21:24 Novolog SC Not Given ACHS GLADYS Protocol Ondansetron HCl 4 mg 09/10/17 17:00 09/11/17 17:20 Zofran Inj IVP 4 mg Q6 PRN Administration Nausea/Vomiting Pantoprazole Sodium 40 mg 09/11/17 10:00 09/11/17 10:43 Protonix Inj IVP 40 mg DAILY GLADYS Administration Rosuvastatin Calcium 2.5 mg 09/10/17 22:00 09/11/17 21:26 Crestor PO 2.5 mg HS GLADYS Administration Sodium Bicarbonate 1,300 mg 09/12/17 10:00 Sodium Bicarbonate Tab PO TID GLADYS - Patient Studies Lab Studies: Microbiology Studies 09/10/17 15:00 Blood Culture - Preliminary Blood NO GROWTH AFTER 24 HOURS 09/10/17 13:45 Blood Culture - Preliminary Blood NO GROWTH AFTER 24 HOURS 09/10/17 19:49 MRSA Culture (Admit) - Final Nose MRSA NOT DETECTED Lab Studies 09/12/17 09/12/17 09/12/17 Range/Units 06:20 06:20 05:03 WBC 6.0 (4.8-10.8) K/uL RBC 2.97 L (3.80-5.20) Mil/uL Hgb 7.0 L (11.0-16.0) g/dL Hct 21.6 L (34.0-47.0) % MCV 72.6 L (81.0-99.0) fL MCH 23.5 L (27.0-31.0) pg MCHC 32.4 L (33.0-37.0) g/dL RDW 16.5 H (11.5-14.5) % Plt Count 180 (130-400) K/uL MPV 9.7 (7.2-11.7) fL Neut % (Auto) 67.3 (50.0-75.0) % Lymph % (Auto) 16.9 L (20.0-40.0) % Maury % (Auto) 14.9 H (0.0-10.0) % Eos % (Auto) 0.2 (0.0-4.0) % Baso % (Auto) 0.7 (0.0-2.0) % Neut # 4.0 (1.8-7.0) K/uL Lymph # 1.0 (1.0-4.3) K/uL Maury # 0.9 H (0.0-0.8) K/uL Eos # 0.0 (0.0-0.7) K/uL Baso # 0.0 (0.0-0.2) K/uL Retic Count (0.5-1.5) % Puncture Site pCO2 (35-45) mm/Hg pO2 49 (80-100) mm/Hg HCO3 (21-28) mmol/L ABG pH (7.35-7.45) ABG Total CO2 (22-28) mmol/L ABG O2 Saturation (95-98) % ABG Base Excess (-2.0-3.0) mmol/L Guy Test ABG Potassium (3.6-5.2) mmol/L VBG pH 7.25 L (7.32-7.43) VBG pCO2 39 L (40-60) mmHg VBG HCO3 17.0 mmol/L VBG Total CO2 18.3 L (22-28) mmol/L VBG O2 Sat (Calc) 85.5 H (40-65) % VBG Base Excess -9.5 L (0.0-2.0) mmol/L VBG Potassium 4.5 (3.6-5.2) mmol/L A-a O2 Difference 116.0 mm/Hg Respiratory Index Glucose 155 H (65-105) mg/dl Lactate 2.2 H (0.7-2.1) mmol/L Mechanical Rate FiO2 30.0 % Expiratory BiPAP 5 Sodium 134 141.0 (132-148) mmol/L Potassium 4.7 (3.6-5.2) mmol/L Chloride 102 106.0 (98-107) mmol/L Carbon Dioxide 18 L (22-30) mmol/L Anion Gap 20 (10-20) BUN 52 H (7-17) mg/dL Creatinine 2.4 H (0.7-1.2) mg/dL Est GFR ( Amer) 23 Est GFR (Non-Af Amer) 19 POC Glucose (mg/dL) (65-110) mg/dL Random Glucose 118 H (65-105) mg/dL Hemoglobin A1c (4.2-6.5) % Calcium 7.9 L (8.6-10.4) mg/dl Ferritin ng/mL Total Bilirubin 0.8 (0.2-1.3) mg/dL AST 49 H D (14-36) U/L ALT 41 (9-52) U/L Alkaline Phosphatase 45 (38-126) U/L Troponin I (0.00-0.120) ng/mL Total Protein 5.8 L (6.3-8.3) g/dL Albumin 3.3 L (3.5-5.0) g/dL Globulin 2.5 (2.2-3.9) gm/dL Albumin/Globulin Ratio 1.3 (1.0-2.1) Vitamin B12 (239-931) pg/mL Folate ng/mL Arterial Blood Potassium (3.6-5.2) mmol/L Venous Blood Potassium 4.5 (3.6-5.2) mmol/L Urine Color (YELLOW) Urine Clarity (Clear) Urine pH (5.0-8.0) Ur Specific [place] (1.003-1.030) Urine Protein (NEGATIVE) mg/dL Urine Glucose (UA) (Normal) mg/dL Urine Ketones (NEGATIVE) mg/dL Urine Blood (NEGATIVE) Urine Nitrate (NEGATIVE) Urine Bilirubin (NEGATIVE) Urine Urobilinogen (0.2-1.0) mg/dL Ur Leukocyte Esterase (Negative) [place]/uL Urine WBC (Auto) (0-5) /hpf Urine RBC (Auto) (0-3) /hpf Ur Squamous Epith Cells (0-5) /hpf Hyaline Casts (0-2) /lpf Ur Random Creatinine U Random Total Protein (0.0-12.0) mg/dL Ur Random Sodium mmol/L Blood Type Antibody Screen 09/12/17 09/11/17 09/11/17 Range/Units 04:51 21:29 21:22 WBC (4.8-10.8) K/uL RBC (3.80-5.20) Mil/uL Hgb (11.0-16.0) g/dL Hct (34.0-47.0) % MCV (81.0-99.0) fL MCH (27.0-31.0) pg MCHC (33.0-37.0) g/dL RDW (11.5-14.5) % Plt Count (130-400) K/uL MPV (7.2-11.7) fL Neut % (Auto) (50.0-75.0) % Lymph % (Auto) (20.0-40.0) % Maury % (Auto) (0.0-10.0) % Eos % (Auto) (0.0-4.0) % Baso % (Auto) (0.0-2.0) % Neut # (1.8-7.0) K/uL Lymph # (1.0-4.3) K/uL Maury # (0.0-0.8) K/uL Eos # (0.0-0.7) K/uL Baso # (0.0-0.2) K/uL Retic Count (0.5-1.5) % Puncture Site pCO2 (35-45) mm/Hg pO2 (80-100) mm/Hg HCO3 (21-28) mmol/L ABG pH (7.35-7.45) ABG Total CO2 (22-28) mmol/L ABG O2 Saturation (95-98) % ABG Base Excess (-2.0-3.0) mmol/L Guy Test ABG Potassium (3.6-5.2) mmol/L VBG pH (7.32-7.43) VBG pCO2 (40-60) mmHg VBG HCO3 mmol/L VBG Total CO2 (22-28) mmol/L VBG O2 Sat (Calc) (40-65) % VBG Base Excess (0.0-2.0) mmol/L VBG Potassium (3.6-5.2) mmol/L A-a O2 Difference mm/Hg Respiratory Index Glucose (65-105) mg/dl Lactate (0.7-2.1) mmol/L Mechanical Rate FiO2 % Expiratory BiPAP Sodium (132-148) mmol/L Potassium (3.6-5.2) mmol/L Chloride (98-107) mmol/L Carbon Dioxide (22-30) mmol/L Anion Gap (10-20) BUN (7-17) mg/dL Creatinine (0.7-1.2) mg/dL Est GFR ( Amer) Est GFR (Non-Af Amer) POC Glucose (mg/dL) 147 H 98 (65-110) mg/dL Random Glucose (65-105) mg/dL Hemoglobin A1c (4.2-6.5) % Calcium (8.6-10.4) mg/dl Ferritin ng/mL Total Bilirubin (0.2-1.3) mg/dL AST (14-36) U/L ALT (9-52) U/L Alkaline Phosphatase (38-126) U/L Troponin I 1.0300 H* (0.00-0.120) ng/mL Total Protein (6.3-8.3) g/dL Albumin (3.5-5.0) g/dL Globulin (2.2-3.9) gm/dL Albumin/Globulin Ratio (1.0-2.1) Vitamin B12 (239-931) pg/mL Folate ng/mL Arterial Blood Potassium (3.6-5.2) mmol/L Venous Blood Potassium (3.6-5.2) mmol/L Urine Color (YELLOW) Urine Clarity (Clear) Urine pH (5.0-8.0) Ur Specific [place] (1.003-1.030) Urine Protein (NEGATIVE) mg/dL Urine Glucose (UA) (Normal) mg/dL Urine Ketones (NEGATIVE) mg/dL Urine Blood (NEGATIVE) Urine Nitrate (NEGATIVE) Urine Bilirubin (NEGATIVE) Urine Urobilinogen (0.2-1.0) mg/dL Ur Leukocyte Esterase (Negative) [place]/uL Urine WBC (Auto) (0-5) /hpf Urine RBC (Auto) (0-3) /hpf Ur Squamous Epith Cells (0-5) /hpf Hyaline Casts (0-2) /lpf Ur Random Creatinine U Random Total Protein (0.0-12.0) mg/dL Ur Random Sodium mmol/L Blood Type Antibody Screen 09/11/17 09/11/17 09/11/17 Range/Units 20:35 17:58 17:11 WBC (4.8-10.8) K/uL RBC (3.80-5.20) Mil/uL Hgb (11.0-16.0) g/dL Hct (34.0-47.0) % MCV (81.0-99.0) fL MCH (27.0-31.0) pg MCHC (33.0-37.0) g/dL RDW (11.5-14.5) % Plt Count (130-400) K/uL MPV (7.2-11.7) fL Neut % (Auto) (50.0-75.0) % Lymph % (Auto) (20.0-40.0) % Maury % (Auto) (0.0-10.0) % Eos % (Auto) (0.0-4.0) % Baso % (Auto) (0.0-2.0) % Neut # (1.8-7.0) K/uL Lymph # (1.0-4.3) K/uL Maury # (0.0-0.8) K/uL Eos # (0.0-0.7) K/uL Baso # (0.0-0.2) K/uL Retic Count (0.5-1.5) % Puncture Site Rba pCO2 34 L (35-45) mm/Hg pO2 313 H (80-100) mm/Hg HCO3 14.7 L (21-28) mmol/L ABG pH 7.21 L (7.35-7.45) ABG Total CO2 14.6 L (22-28) mmol/L ABG O2 Saturation 97.7 (95-98) % ABG Base Excess -13.2 L (-2.0-3.0) mmol/L Guy Test Na ABG Potassium 5.0 (3.6-5.2) mmol/L VBG pH (7.32-7.43) VBG pCO2 (40-60) mmHg VBG HCO3 mmol/L VBG Total CO2 (22-28) mmol/L VBG O2 Sat (Calc) (40-65) % VBG Base Excess (0.0-2.0) mmol/L VBG Potassium (3.6-5.2) mmol/L A-a O2 Difference 215.0 mm/Hg Respiratory Index 0.7 Glucose 117 H (65-105) mg/dl Lactate 1.2 (0.7-2.1) mmol/L Mechanical Rate 16 FiO2 80.0 % Expiratory BiPAP Sodium 136.0 (132-148) mmol/L Potassium (3.6-5.2) mmol/L Chloride 106.0 (98-107) mmol/L Carbon Dioxide (22-30) mmol/L Anion Gap (10-20) BUN (7-17) mg/dL Creatinine (0.7-1.2) mg/dL Est GFR ( Amer) Est GFR (Non-Af Amer) POC Glucose (mg/dL) (65-110) mg/dL Random Glucose (65-105) mg/dL Hemoglobin A1c (4.2-6.5) % Calcium (8.6-10.4) mg/dl Ferritin ng/mL Total Bilirubin (0.2-1.3) mg/dL AST (14-36) U/L ALT (9-52) U/L Alkaline Phosphatase (38-126) U/L Troponin I (0.00-0.120) ng/mL Total Protein (6.3-8.3) g/dL Albumin (3.5-5.0) g/dL Globulin (2.2-3.9) gm/dL Albumin/Globulin Ratio (1.0-2.1) Vitamin B12 (239-931) pg/mL Folate ng/mL Arterial Blood Potassium 5.0 (3.6-5.2) mmol/L Venous Blood Potassium (3.6-5.2) mmol/L Urine Color (YELLOW) Urine Clarity (Clear) Urine pH (5.0-8.0) Ur Specific [place] (1.003-1.030) Urine Protein (NEGATIVE) mg/dL Urine Glucose (UA) (Normal) mg/dL Urine Ketones (NEGATIVE) mg/dL Urine Blood (NEGATIVE) Urine Nitrate (NEGATIVE) Urine Bilirubin (NEGATIVE) Urine Urobilinogen (0.2-1.0) mg/dL Ur Leukocyte Esterase (Negative) [place]/uL Urine WBC (Auto) (0-5) /hpf Urine RBC (Auto) (0-3) /hpf Ur Squamous Epith Cells (0-5) /hpf Hyaline Casts (0-2) /lpf Ur Random Creatinine 54.7 U Random Total Protein 40.0 H (0.0-12.0) mg/dL Ur Random Sodium mmol/L Blood Type O POSITIVE Antibody Screen Negative 09/11/17 09/11/17 09/11/17 Range/Units 17:11 17:11 17:11 WBC 5.8 (4.8-10.8) K/uL RBC 3.32 L (3.80-5.20) Mil/uL Hgb 7.5 L (11.0-16.0) g/dL Hct 24.1 L (34.0-47.0) % MCV 72.6 L (81.0-99.0) fL MCH 22.6 L (27.0-31.0) pg MCHC 31.2 L (33.0-37.0) g/dL RDW 16.6 H (11.5-14.5) % Plt Count 182 (130-400) K/uL MPV 9.0 (7.2-11.7) fL Neut % (Auto) 63.2 (50.0-75.0) % Lymph % (Auto) 22.7 (20.0-40.0) % Maury % (Auto) 13.2 H (0.0-10.0) % Eos % (Auto) 0.2 (0.0-4.0) % Baso % (Auto) 0.7 (0.0-2.0) % Neut # 3.6 (1.8-7.0) K/uL Lymph # 1.3 (1.0-4.3) K/uL Maury # 0.8 (0.0-0.8) K/uL Eos # 0.0 (0.0-0.7) K/uL Baso # 0.0 (0.0-0.2) K/uL Retic Count (0.5-1.5) % Puncture Site pCO2 (35-45) mm/Hg pO2 (80-100) mm/Hg HCO3 (21-28) mmol/L ABG pH (7.35-7.45) ABG Total CO2 (22-28) mmol/L ABG O2 Saturation (95-98) % ABG Base Excess (-2.0-3.0) mmol/L Guy Test ABG Potassium (3.6-5.2) mmol/L VBG pH (7.32-7.43) VBG pCO2 (40-60) mmHg VBG HCO3 mmol/L VBG Total CO2 (22-28) mmol/L VBG O2 Sat (Calc) (40-65) % VBG Base Excess (0.0-2.0) mmol/L VBG Potassium (3.6-5.2) mmol/L A-a O2 Difference mm/Hg Respiratory Index Glucose (65-105) mg/dl Lactate (0.7-2.1) mmol/L Mechanical Rate FiO2 % Expiratory BiPAP Sodium 131 L (132-148) mmol/L Potassium 4.6 (3.6-5.2) mmol/L Chloride 102 (98-107) mmol/L Carbon Dioxide 14 L (22-30) mmol/L Anion Gap 21 H (10-20) BUN 46 H (7-17) mg/dL Creatinine 2.2 H (0.7-1.2) mg/dL Est GFR ( Amer) 26 Est GFR (Non-Af Amer) 21 POC Glucose (mg/dL) (65-110) mg/dL Random Glucose 83 (65-105) mg/dL Hemoglobin A1c (4.2-6.5) % Calcium 7.8 L (8.6-10.4) mg/dl Ferritin ng/mL Total Bilirubin 0.6 (0.2-1.3) mg/dL AST 36 D (14-36) U/L ALT 42 (9-52) U/L Alkaline Phosphatase 54 (38-126) U/L Troponin I (0.00-0.120) ng/mL Total Protein 6.1 L (6.3-8.3) g/dL Albumin 3.6 (3.5-5.0) g/dL Globulin 2.5 (2.2-3.9) gm/dL Albumin/Globulin Ratio 1.4 (1.0-2.1) Vitamin B12 (239-931) pg/mL Folate ng/mL Arterial Blood Potassium (3.6-5.2) mmol/L Venous Blood Potassium (3.6-5.2) mmol/L Urine Color (YELLOW) Urine Clarity (Clear) Urine pH (5.0-8.0) Ur Specific [place] (1.003-1.030) Urine Protein (NEGATIVE) mg/dL Urine Glucose (UA) (Normal) mg/dL Urine Ketones (NEGATIVE) mg/dL Urine Blood (NEGATIVE) Urine Nitrate (NEGATIVE) Urine Bilirubin (NEGATIVE) Urine Urobilinogen (0.2-1.0) mg/dL Ur Leukocyte Esterase (Negative) [place]/uL Urine WBC (Auto) (0-5) /hpf Urine RBC (Auto) (0-3) /hpf Ur Squamous Epith Cells (0-5) /hpf Hyaline Casts (0-2) /lpf Ur Random Creatinine Cancelled U Random Total Protein (0.0-12.0) mg/dL Ur Random Sodium 58 mmol/L Blood Type Antibody Screen 09/11/17 09/11/17 09/11/17 Range/Units 17:11 16:17 12:03 WBC (4.8-10.8) K/uL RBC (3.80-5.20) Mil/uL Hgb (11.0-16.0) g/dL Hct (34.0-47.0) % MCV (81.0-99.0) fL MCH (27.0-31.0) pg MCHC (33.0-37.0) g/dL RDW (11.5-14.5) % Plt Count (130-400) K/uL MPV (7.2-11.7) fL Neut % (Auto) (50.0-75.0) % Lymph % (Auto) (20.0-40.0) % [place] % (Auto) (0.0-10.0) % Eos % (Auto) (0.0-4.0) % Baso % (Auto) (0.0-2.0) % Neut # (1.8-7.0) K/uL Lymph # (1.0-4.3) K/uL [place] # (0.0-0.8) K/uL Eos # (0.0-0.7) K/uL Baso # (0.0-0.2) K/uL Retic Count (0.5-1.5) % Puncture Site pCO2 (35-45) mm/Hg pO2 (80-100) mm/Hg HCO3 (21-28) mmol/L ABG pH (7.35-7.45) ABG Total CO2 (22-28) mmol/L ABG O2 Saturation (95-98) % ABG Base Excess (-2.0-3.0) mmol/L Guy Test ABG Potassium (3.6-5.2) mmol/L VBG pH (7.32-7.43) VBG pCO2 (40-60) mmHg VBG HCO3 mmol/L VBG Total CO2 (22-28) mmol/L VBG O2 Sat (Calc) (40-65) % VBG Base Excess (0.0-2.0) mmol/L VBG Potassium (3.6-5.2) mmol/L A-a O2 Difference mm/Hg Respiratory Index Glucose (65-105) mg/dl Lactate (0.7-2.1) mmol/L Mechanical Rate FiO2 % Expiratory BiPAP Sodium (132-148) mmol/L Potassium (3.6-5.2) mmol/L Chloride (98-107) mmol/L Carbon Dioxide (22-30) mmol/L Anion Gap (10-20) BUN (7-17) mg/dL Creatinine (0.7-1.2) mg/dL Est GFR ( Amer) Est GFR (Non-Af Amer) POC Glucose (mg/dL) 91 (65-110) mg/dL Random Glucose (65-105) mg/dL Hemoglobin A1c (4.2-6.5) % Calcium (8.6-10.4) mg/dl Ferritin 31.3 ng/mL Total Bilirubin (0.2-1.3) mg/dL AST (14-36) U/L ALT (9-52) U/L Alkaline Phosphatase (38-126) U/L Troponin I (0.00-0.120) ng/mL Total Protein (6.3-8.3) g/dL Albumin (3.5-5.0) g/dL Globulin (2.2-3.9) gm/dL Albumin/Globulin Ratio (1.0-2.1) Vitamin B12 > 1000 H (239-931) pg/mL Folate > 20.0 ng/mL Arterial Blood Potassium (3.6-5.2) mmol/L Venous Blood Potassium (3.6-5.2) mmol/L Urine Color Yellow (YELLOW) Urine Clarity Clear (Clear) Urine pH 5.0 (5.0-8.0) Ur Specific [place] 1.009 (1.003-1.030) Urine Protein 1+ H (NEGATIVE) mg/dL Urine Glucose (UA) Normal (Normal) mg/dL Urine Ketones Trace (NEGATIVE) mg/dL Urine Blood 1+ H (NEGATIVE) Urine Nitrate Negative (NEGATIVE) Urine Bilirubin Negative (NEGATIVE) Urine Urobilinogen Normal (0.2-1.0) mg/dL Ur Leukocyte Esterase 2+ H (Negative) [place]/uL Urine WBC (Auto) 19 H (0-5) /hpf Urine RBC (Auto) 6 H (0-3) /hpf Ur Squamous Epith Cells 2 (0-5) /hpf Hyaline Casts 6-10 H (0-2) /lpf Ur Random Creatinine U Random Total Protein (0.0-12.0) mg/dL Ur Random Sodium mmol/L Blood Type Antibody Screen 09/11/17 09/11/17 09/10/17 Range/Units 12:03 11:27 17:36 WBC (4.8-10.8) K/uL RBC (3.80-5.20) Mil/uL Hgb (11.0-16.0) g/dL Hct (34.0-47.0) % MCV (81.0-99.0) fL MCH (27.0-31.0) pg MCHC (33.0-37.0) g/dL RDW (11.5-14.5) % Plt Count (130-400) K/uL MPV (7.2-11.7) fL Neut % (Auto) (50.0-75.0) % Lymph % (Auto) (20.0-40.0) % [place] % (Auto) (0.0-10.0) % Eos % (Auto) (0.0-4.0) % Baso % (Auto) (0.0-2.0) % Neut # (1.8-7.0) K/uL Lymph # (1.0-4.3) K/uL [place] # (0.0-0.8) K/uL Eos # (0.0-0.7) K/uL Baso # (0.0-0.2) K/uL Retic Count 2.2 H (0.5-1.5) % Puncture Site pCO2 (35-45) mm/Hg pO2 (80-100) mm/Hg HCO3 (21-28) mmol/L ABG pH (7.35-7.45) ABG Total CO2 (22-28) mmol/L ABG O2 Saturation (95-98) % ABG Base Excess (-2.0-3.0) mmol/L Guy Test ABG Potassium (3.6-5.2) mmol/L VBG pH (7.32-7.43) VBG pCO2 (40-60) mmHg VBG HCO3 mmol/L VBG Total CO2 (22-28) mmol/L VBG O2 Sat (Calc) (40-65) % VBG Base Excess (0.0-2.0) mmol/L VBG Potassium (3.6-5.2) mmol/L A-a O2 Difference mm/Hg Respiratory Index Glucose (65-105) mg/dl Lactate (0.7-2.1) mmol/L Mechanical Rate FiO2 % Expiratory BiPAP Sodium (132-148) mmol/L Potassium (3.6-5.2) mmol/L Chloride (98-107) mmol/L Carbon Dioxide (22-30) mmol/L Anion Gap (10-20) BUN (7-17) mg/dL Creatinine (0.7-1.2) mg/dL Est GFR ( Amer) Est GFR (Non-Af Amer) POC Glucose (mg/dL) 112 H (65-110) mg/dL Random Glucose (65-105) mg/dL Hemoglobin A1c 7.8 H (4.2-6.5) % Calcium (8.6-10.4) mg/dl Ferritin ng/mL Total Bilirubin (0.2-1.3) mg/dL AST (14-36) U/L ALT (9-52) U/L Alkaline Phosphatase (38-126) U/L Troponin I (0.00-0.120) ng/mL Total Protein (6.3-8.3) g/dL Albumin (3.5-5.0) g/dL Globulin (2.2-3.9) gm/dL Albumin/Globulin Ratio (1.0-2.1) Vitamin B12 (239-931) pg/mL Folate ng/mL Arterial Blood Potassium (3.6-5.2) mmol/L Venous Blood Potassium (3.6-5.2) mmol/L Urine Color (YELLOW) Urine Clarity (Clear) Urine pH (5.0-8.0) Ur Specific [place] (1.003-1.030) Urine Protein (NEGATIVE) mg/dL Urine Glucose (UA) (Normal) mg/dL Urine Ketones (NEGATIVE) mg/dL Urine Blood (NEGATIVE) Urine Nitrate (NEGATIVE) Urine Bilirubin (NEGATIVE) Urine Urobilinogen (0.2-1.0) mg/dL Ur Leukocyte Esterase (Negative) [place]/uL Urine WBC (Auto) (0-5) /hpf Urine RBC (Auto) (0-3) /hpf Ur Squamous Epith Cells (0-5) /hpf Hyaline Casts (0-2) /lpf Ur Random Creatinine U Random Total Protein (0.0-12.0) mg/dL Ur Random Sodium mmol/L Blood Type Antibody Screen Laboratory Results - last 24 hr 09/10/17 09/11/17 09/11/17 17:36 11:27 12:03 WBC RBC Hgb Hct MCV MCH MCHC RDW Plt Count MPV Neut % (Auto) Lymph % (Auto) Maury % (Auto) Eos % (Auto) Baso % (Auto) Neut # Lymph # Maury # Eos # Baso # Retic Count 2.2 H Puncture Site pCO2 pO2 HCO3 ABG pH ABG Total CO2 ABG O2 Saturation ABG Base Excess Guy Test ABG Potassium VBG pH VBG pCO2 VBG HCO3 VBG Total CO2 VBG O2 Sat (Calc) VBG Base Excess VBG Potassium A-a O2 Difference Respiratory Index Glucose Lactate Mechanical Rate FiO2 Expiratory BiPAP Sodium Potassium Chloride Carbon Dioxide Anion Gap BUN Creatinine Est GFR ( Amer) Est GFR (Non-Af Amer) POC Glucose (mg/dL) 112 H Random Glucose Hemoglobin A1c 7.8 H Calcium Ferritin Total Bilirubin AST ALT Alkaline Phosphatase Troponin I Total Protein Albumin Globulin Albumin/Globulin Ratio Vitamin B12 Folate Arterial Blood Potassium Venous Blood Potassium Urine Color Urine Clarity Urine pH Ur Specific [place] Urine Protein Urine Glucose (UA) Urine Ketones Urine Blood Urine Nitrate Urine Bilirubin Urine Urobilinogen Ur Leukocyte Esterase Urine WBC (Auto) Urine RBC (Auto) Ur Squamous Epith Cells Hyaline Casts Ur Random Creatinine U Random Total Protein Ur Random Sodium Blood Type Antibody Screen 09/11/17 09/11/17 09/11/17 12:03 16:17 17:11 WBC RBC Hgb Hct MCV MCH MCHC RDW Plt Count MPV Neut % (Auto) Lymph % (Auto) Maury % (Auto) Eos % (Auto) Baso % (Auto) Neut # Lymph # Maury # Eos # Baso # Retic Count Puncture Site pCO2 pO2 HCO3 ABG pH ABG Total CO2 ABG O2 Saturation ABG Base Excess Guy Test ABG Potassium VBG pH VBG pCO2 VBG HCO3 VBG Total CO2 VBG O2 Sat (Calc) VBG Base Excess VBG Potassium A-a O2 Difference Respiratory Index Glucose Lactate Mechanical Rate FiO2 Expiratory BiPAP Sodium Potassium Chloride Carbon Dioxide Anion Gap BUN Creatinine Est GFR ( Amer) Est GFR (Non-Af Amer) POC Glucose (mg/dL) 91 Random Glucose Hemoglobin A1c Calcium Ferritin 31.3 Total Bilirubin AST ALT Alkaline Phosphatase Troponin I Total Protein Albumin Globulin Albumin/Globulin Ratio Vitamin B12 > 1000 H Folate > 20.0 Arterial Blood Potassium Venous Blood Potassium Urine Color Yellow Urine Clarity Clear Urine pH 5.0 Ur Specific [place] 1.009 Urine Protein 1+ H Urine Glucose (UA) Normal Urine Ketones Trace Urine Blood 1+ H Urine Nitrate Negative Urine Bilirubin Negative Urine Urobilinogen Normal Ur Leukocyte Esterase 2+ H Urine WBC (Auto) 19 H Urine RBC (Auto) 6 H Ur Squamous Epith Cells 2 Hyaline Casts 6-10 H Ur Random Creatinine U Random Total Protein Ur Random Sodium Blood Type Antibody Screen 09/11/17 09/11/17 09/11/17 17:11 17:11 17:11 WBC 5.8 RBC 3.32 L Hgb 7.5 L Hct 24.1 L MCV 72.6 L MCH 22.6 L MCHC 31.2 L RDW 16.6 H Plt Count 182 MPV 9.0 Neut % (Auto) 63.2 Lymph % (Auto) 22.7 Maury % (Auto) 13.2 H Eos % (Auto) 0.2 Baso % (Auto) 0.7 Neut # 3.6 Lymph # 1.3 Maury # 0.8 Eos # 0.0 Baso # 0.0 Retic Count Puncture Site pCO2 pO2 HCO3 ABG pH ABG Total CO2 ABG O2 Saturation ABG Base Excess Guy Test ABG Potassium VBG pH VBG pCO2 VBG HCO3 VBG Total CO2 VBG O2 Sat (Calc) VBG Base Excess VBG Potassium A-a O2 Difference Respiratory Index Glucose Lactate Mechanical Rate FiO2 Expiratory BiPAP Sodium 131 L Potassium 4.6 Chloride 102 Carbon Dioxide 14 L Anion Gap 21 H BUN 46 H Creatinine 2.2 H Est GFR ( Amer) 26 Est GFR (Non-Af Amer) 21 POC Glucose (mg/dL) Random Glucose 83 Hemoglobin A1c Calcium 7.8 L Ferritin Total Bilirubin 0.6 AST 36 D ALT 42 Alkaline Phosphatase 54 Troponin I Total Protein 6.1 L Albumin 3.6 Globulin 2.5 Albumin/Globulin Ratio 1.4 Vitamin B12 Folate Arterial Blood Potassium Venous Blood Potassium Urine Color Urine Clarity Urine pH Ur Specific [place] Urine Protein Urine Glucose (UA) Urine Ketones Urine Blood Urine Nitrate Urine Bilirubin Urine Urobilinogen Ur Leukocyte Esterase Urine WBC (Auto) Urine RBC (Auto) Ur Squamous Epith Cells Hyaline Casts Ur Random Creatinine Cancelled U Random Total Protein Ur Random Sodium 58 Blood Type Antibody Screen 09/11/17 09/11/17 09/11/17 17:11 17:58 20:35 WBC RBC Hgb Hct MCV MCH MCHC RDW Plt Count MPV Neut % (Auto) Lymph % (Auto) Maury % (Auto) Eos % (Auto) Baso % (Auto) Neut # Lymph # Maury # Eos # Baso # Retic Count Puncture Site Rba pCO2 34 L pO2 313 H HCO3 14.7 L ABG pH 7.21 L ABG Total CO2 14.6 L ABG O2 Saturation 97.7 ABG Base Excess -13.2 L Guy Test Na ABG Potassium 5.0 VBG pH VBG pCO2 VBG HCO3 VBG Total CO2 VBG O2 Sat (Calc) VBG Base Excess VBG Potassium A-a O2 Difference 215.0 Respiratory Index 0.7 Glucose 117 H Lactate 1.2 Mechanical Rate 16 FiO2 80.0 Expiratory BiPAP Sodium 136.0 Potassium Chloride 106.0 Carbon Dioxide Anion Gap BUN Creatinine Est GFR ( Amer) Est GFR (Non-Af Amer) POC Glucose (mg/dL) Random Glucose Hemoglobin A1c Calcium Ferritin Total Bilirubin AST ALT Alkaline Phosphatase Troponin I Total Protein Albumin Globulin Albumin/Globulin Ratio Vitamin B12 Folate Arterial Blood Potassium 5.0 Venous Blood Potassium Urine Color Urine Clarity Urine pH Ur Specific [place] Urine Protein Urine Glucose (UA) Urine Ketones Urine Blood Urine Nitrate Urine Bilirubin Urine Urobilinogen Ur Leukocyte Esterase Urine WBC (Auto) Urine RBC (Auto) Ur Squamous Epith Cells Hyaline Casts Ur Random Creatinine 54.7 U Random Total Protein 40.0 H Ur Random Sodium Blood Type O POSITIVE Antibody Screen Negative 09/11/17 09/11/17 09/12/17 21:22 21:29 04:51 WBC RBC Hgb Hct MCV MCH MCHC RDW Plt Count MPV Neut % (Auto) Lymph % (Auto) Maury % (Auto) Eos % (Auto) Baso % (Auto) Neut # Lymph # [place] # Eos # Baso # Retic Count Puncture Site pCO2 pO2 HCO3 ABG pH ABG Total CO2 ABG O2 Saturation ABG Base Excess Guy Test ABG Potassium VBG pH VBG pCO2 VBG HCO3 VBG Total CO2 VBG O2 Sat (Calc) VBG Base Excess VBG Potassium A-a O2 Difference Respiratory Index Glucose Lactate Mechanical Rate FiO2 Expiratory BiPAP Sodium Potassium Chloride Carbon Dioxide Anion Gap BUN Creatinine Est GFR ( Amer) Est GFR (Non-Af Amer) POC Glucose (mg/dL) 98 147 H Random Glucose Hemoglobin A1c Calcium Ferritin Total Bilirubin AST ALT Alkaline Phosphatase Troponin I 1.0300 H* Total Protein Albumin Globulin Albumin/Globulin Ratio Vitamin B12 Folate Arterial Blood Potassium Venous Blood Potassium Urine Color Urine Clarity Urine pH Ur Specific [place] Urine Protein Urine Glucose (UA) Urine Ketones Urine Blood Urine Nitrate Urine Bilirubin Urine Urobilinogen Ur Leukocyte Esterase Urine WBC (Auto) Urine RBC (Auto) Ur Squamous Epith Cells Hyaline Casts Ur Random Creatinine U Random Total Protein Ur Random Sodium Blood Type Antibody Screen 09/12/17 09/12/17 09/12/17 05:03 06:20 06:20 WBC 6.0 RBC 2.97 L Hgb 7.0 L Hct 21.6 L MCV 72.6 L MCH 23.5 L MCHC 32.4 L RDW 16.5 H Plt Count 180 MPV 9.7 Neut % (Auto) 67.3 Lymph % (Auto) 16.9 L [place] % (Auto) 14.9 H Eos % (Auto) 0.2 Baso % (Auto) 0.7 Neut # 4.0 Lymph # 1.0 Maury # 0.9 H Eos # 0.0 Baso # 0.0 Retic Count Puncture Site pCO2 pO2 49 HCO3 ABG pH ABG Total CO2 ABG O2 Saturation ABG Base Excess Guy Test ABG Potassium VBG pH 7.25 L VBG pCO2 39 L VBG HCO3 17.0 VBG Total CO2 18.3 L VBG O2 Sat (Calc) 85.5 H VBG Base Excess -9.5 L VBG Potassium 4.5 A-a O2 Difference 116.0 Respiratory Index Glucose 155 H Lactate 2.2 H Mechanical Rate FiO2 30.0 Expiratory BiPAP 5 Sodium 141.0 134 Potassium 4.7 Chloride 106.0 102 Carbon Dioxide 18 L Anion Gap 20 BUN 52 H Creatinine 2.4 H Est GFR ( Amer) 23 Est GFR (Non-Af Amer) 19 POC Glucose (mg/dL) Random Glucose 118 H Hemoglobin A1c Calcium 7.9 L Ferritin Total Bilirubin 0.8 AST 49 H D ALT 41 Alkaline Phosphatase 45 Troponin I Total Protein 5.8 L Albumin 3.3 L Globulin 2.5 Albumin/Globulin Ratio 1.3 Vitamin B12 Folate Arterial Blood Potassium Venous Blood Potassium 4.5 Urine Color Urine Clarity Urine pH Ur Specific [place] Urine Protein Urine Glucose (UA) Urine Ketones Urine Blood Urine Nitrate Urine Bilirubin Urine Urobilinogen Ur Leukocyte Esterase Urine WBC (Auto) Urine RBC (Auto) Ur Squamous Epith Cells Hyaline Casts Ur Random Creatinine U Random Total Protein Ur Random Sodium Blood Type Antibody Screen EKG/Cardiology Studies: Cardiology / EKG Studies 09/11/17 07:52 EKG [ELECTROCARDIOGRAM] Q6H Comment: Mode Of Transportation: Reason For Exam: NSTEMI 09/11/17 20:09 EKG [ELECTROCARDIOGRAM] Stat Comment: Mode Of Transportation: Reason For Exam: sob Fingerstick Blood Sugar Results: 98 Critical Care Progress Note - Nutrition Nutrition: Nutrition Category Date Time Status Heart Healthy Diet [DIET] Diets 09/10/17 Dinner Active Assessment/Plan - Assessment and Plan (Free Text) Assessment: Patient is an 81 year old female presenting with NSTEMI, acute renal failure and CHF exacerbation. Plan: Respiratory: Continue BiPAP CXR 09/12 - Diminishing CHF with nearly normal pulmonary vascular pattern bilaterally. Limited right infrahilar patchy density is questioned. Trace left pleural effusion blunts the left costophrenic sulcus. Patient tolerating BiPAP, saturating at 95% 40mg of Lasix given post blood transfusion LE duplex - negative b/l VBG - pH 7.25/pCO2 39/pO2 49/HCO3 17 Renal: Nephro consult, Dr. Alatorre, help appreciated Improving Cr 2.4 from 3.0 Urine output ~1100 over 24 hours Metabolic Acidosis, improving - continue Bicarb 1300mg PO TID f/u renal US Cardio: Cardio consult, Dr. Dunbar, help appreciated f/u echo, awaiting official report BP controlled EKG 09/12 - no acute ST segment elevations Aspirin 81mg PO daily Crestor 2.5 mg PO HS Trop 0.646/0.485/0.551/1.03 pro-BNP 26749 Neuro: f/u MRI of brain for dizziness Endo: ISS Hem/Onc: Hem/Onc, Dr. Lentz consulted, help appreciated Hgb 7.0 from 8.9 on admission - transfused one unit pRBC - repeat Hgb 9.1 Prophylactic Care: Heparin 5000u SC q8 Protonix 40mg IVP daily Case discussed with Dr. Nohemi Sharpn PGY1 <Rubina Song - Last Filed: 09/12/17 15:41> CCU Objective - Vital Signs / Intake & Output Vital Signs (Last 4 hours): Vital Signs Temp Pulse Resp BP Pulse Ox 09/12/17 14:36 150 H 23 146/62 94 L 09/12/17 14:00 84 26 H 95 09/12/17 13:39 96 H 09/12/17 13:33 98.3 F 78 23 150/57 L 09/12/17 13:00 85 27 H 94 L 09/12/17 12:51 94 H 25 H 150/57 L 94 L 09/12/17 12:00 98.2 F 96 H 22 95 09/12/17 11:58 96 H 09/12/17 11:51 83 18 145/52 L 95 Intake and Output (Last 8hrs): Intake & Output 09/12/17 09/12/17 09/12/17 06:59 14:59 22:59 Intake Total 595 Output Total 210 330 Balance -210 265 Weight 105 lb Intake: Intake, IV Amount 0 Left Antecubital 0 Left Forearm 0 Oral 0 Blood Product 595 Apheresis Rbc Cp2d As3 Lr 280 1st Unit [id number] Output: Urine 210 330 Urethral (Garcia) 210 330 Stool 0 Emesis 0 Other: # Bowel Movements 0 - Medications Active Medications: Active Medications Generic Name Dose Route Start Last Admin Trade Name Freq PRN Reason Stop Dose Admin Acetaminophen 650 mg 09/10/17 17:00 Tylenol 325mg Tab PO Q6 PRN Fever >100.4 F Aspirin 81 mg 09/11/17 10:00 09/12/17 09:14 Ecotrin PO Not Given DAILY GLADYS Dextrose 0 ml 09/10/17 17:21 Dextrose 50% Inj IV STAT PRN Hypoglycemia Protocol Protocol Dextrose 0 gm 09/10/17 17:21 Glutose 15 PO ONCE PRN Hypoglycemia Protocol Protocol Ferrous Sulfate 300 mg 09/12/17 18:00 Feosol Liq PO BID GLADYS Glucagon 0 mg 09/10/17 17:21 Glucagen Diagnostic Kit IM STAT PRN Hypoglycemia Protocol Protocol Heparin Sodium (Porcine) 5,000 units 09/12/17 22:00 Heparin SC Q8 GLADYS Dextrose 1,000 mls @ 0 mls/hr 09/10/17 17:21 Dextrose 5% In Water 1000 Ml IV .Q0M PRN Hypoglycemia Protocol Protocol Per Protocol Insulin Aspart 0 unit 09/10/17 22:00 09/12/17 11:33 Novolog SC Not Given ACHS [facility] Protocol Ondansetron HCl 4 mg 09/10/17 17:00 09/11/17 17:20 Zofran Inj IVP 4 mg Q6 PRN Administration Nausea/Vomiting Pantoprazole Sodium 40 mg 09/11/17 10:00 09/12/17 09:32 Protonix Inj IVP 40 mg DAILY GLADYS Administration Rosuvastatin Calcium 2.5 mg 09/10/17 22:00 09/11/17 21:26 Crestor PO 2.5 mg HS GLADYS Administration Sodium Bicarbonate 1,300 mg 09/12/17 10:00 09/12/17 13:26 Sodium Bicarbonate Tab PO Not Given TID GLADYS - Patient Studies Lab Studies: Microbiology Studies 09/10/17 13:36 Urine Culture - Final Urine 10-50,000 CFU/ML. MULTIPLE SPECIES. PROBABLE CONTAMINATION. 09/10/17 15:00 Blood Culture - Preliminary Blood NO GROWTH AFTER 24 HOURS 09/10/17 13:45 Blood Culture - Preliminary Blood NO GROWTH AFTER 24 HOURS 09/10/17 19:49 MRSA Culture (Admit) - Final Nose MRSA NOT DETECTED Lab Studies 09/12/17 09/12/17 09/12/17 Range/Units 13:54 13:54 13:54 WBC 7.3 (4.8-10.8) K/uL RBC 3.80 (3.80-5.20) Mil/uL Hgb 9.1 L D (11.0-16.0) g/dL Hct 28.4 L (34.0-47.0) % MCV 74.8 L D (81.0-99.0) fL MCH 24.0 L (27.0-31.0) pg MCHC 32.1 L (33.0-37.0) g/dL RDW 18.4 H (11.5-14.5) % Plt Count 200 (130-400) K/uL MPV 9.2 (7.2-11.7) fL Neut % (Auto) 76.7 H (50.0-75.0) % Lymph % (Auto) 13.8 L (20.0-40.0) % Maury % (Auto) 9.0 (0.0-10.0) % Eos % (Auto) 0.0 (0.0-4.0) % Baso % (Auto) 0.5 (0.0-2.0) % Neut # 5.6 (1.8-7.0) K/uL Lymph # 1.0 (1.0-4.3) K/uL Maury # 0.7 (0.0-0.8) K/uL Eos # 0.0 (0.0-0.7) K/uL Baso # 0.0 (0.0-0.2) K/uL Puncture Site pCO2 (35-45) mm/Hg pO2 (80-100) mm/Hg HCO3 (21-28) mmol/L ABG pH (7.35-7.45) ABG Total CO2 (22-28) mmol/L ABG O2 Saturation (95-98) % ABG Base Excess (-2.0-3.0) mmol/L Guy Test ABG Potassium (3.6-5.2) mmol/L VBG pH (7.32-7.43) VBG pCO2 (40-60) mmHg VBG HCO3 mmol/L VBG Total CO2 (22-28) mmol/L VBG O2 Sat (Calc) (40-65) % VBG Base Excess (0.0-2.0) mmol/L VBG Potassium (3.6-5.2) mmol/L A-a O2 Difference mm/Hg Respiratory Index Glucose (65-105) mg/dl Lactate (0.7-2.1) mmol/L Mechanical Rate FiO2 % Expiratory BiPAP Sodium (132-148) mmol/L Potassium (3.6-5.2) mmol/L Chloride (98-107) mmol/L Carbon Dioxide (22-30) mmol/L Anion Gap (10-20) BUN (7-17) mg/dL Creatinine (0.7-1.2) mg/dL Est GFR ( Amer) Est GFR (Non-Af Amer) POC Glucose (mg/dL) (65-110) mg/dL Random Glucose (65-105) mg/dL Calcium (8.6-10.4) mg/dl % Saturation 39 (20-55) Ferritin 41.5 ng/mL Total Bilirubin (0.2-1.3) mg/dL AST (14-36) U/L ALT (9-52) U/L Alkaline Phosphatase (38-126) U/L Troponin I (0.00-0.120) ng/mL Total Protein (6.3-8.3) g/dL Total Protein (PEP) (6.1-8.1) g/dL Albumin (3.5-5.0) g/dL Globulin (2.2-3.9) gm/dL Albumin/Globulin Ratio (1.0-2.1) Arterial Blood Potassium (3.6-5.2) mmol/L Venous Blood Potassium (3.6-5.2) mmol/L Urine Color (YELLOW) Urine Clarity (Clear) Urine pH (5.0-8.0) Ur Specific [place] (1.003-1.030) Urine Protein (NEGATIVE) mg/dL Urine Glucose (UA) (Normal) mg/dL Urine Ketones (NEGATIVE) mg/dL Urine Blood (NEGATIVE) Urine Nitrate (NEGATIVE) Urine Bilirubin (NEGATIVE) Urine Urobilinogen (0.2-1.0) mg/dL Ur Leukocyte Esterase (Negative) [place]/uL Urine WBC (Auto) (0-5) /hpf Urine RBC (Auto) (0-3) /hpf Ur Squamous Epith Cells (0-5) /hpf Hyaline Casts (0-2) /lpf Ur Random Creatinine U Random Total Protein (0.0-12.0) mg/dL Ur Random Sodium mmol/L Ur L.pneumophila Ag (NEGATIVE) Mycoplasma pneumon IgM (NEGATIVE) Blood Type Antibody Screen 09/12/17 09/12/17 09/12/17 Range/Units 11:28 07:45 07:15 WBC (4.8-10.8) K/uL RBC (3.80-5.20) Mil/uL Hgb (11.0-16.0) g/dL Hct (34.0-47.0) % MCV (81.0-99.0) fL MCH (27.0-31.0) pg MCHC (33.0-37.0) g/dL RDW (11.5-14.5) % Plt Count (130-400) K/uL MPV (7.2-11.7) fL Neut % (Auto) (50.0-75.0) % Lymph % (Auto) (20.0-40.0) % Ma[place] % (Auto) (0.0-10.0) % Eos % (Auto) (0.0-4.0) % Baso % (Auto) (0.0-2.0) % Neut # (1.8-7.0) K/uL Lymph # (1.0-4.3) K/uL Maury # (0.0-0.8) K/uL Eos # (0.0-0.7) K/uL Baso # (0.0-0.2) K/uL Puncture Site pCO2 (35-45) mm/Hg pO2 (80-100) mm/Hg HCO3 (21-28) mmol/L ABG pH (7.35-7.45) ABG Total CO2 (22-28) mmol/L ABG O2 Saturation (95-98) % ABG Base Excess (-2.0-3.0) mmol/L Guy Test ABG Potassium (3.6-5.2) mmol/L VBG pH (7.32-7.43) VBG pCO2 (40-60) mmHg VBG HCO3 mmol/L VBG Total CO2 (22-28) mmol/L VBG O2 Sat (Calc) (40-65) % VBG Base Excess (0.0-2.0) mmol/L VBG Potassium (3.6-5.2) mmol/L A-a O2 Difference mm/Hg Respiratory Index Glucose (65-105) mg/dl Lactate (0.7-2.1) mmol/L Mechanical Rate FiO2 % Expiratory BiPAP Sodium (132-148) mmol/L Potassium (3.6-5.2) mmol/L Chloride (98-107) mmol/L Carbon Dioxide (22-30) mmol/L Anion Gap (10-20) BUN (7-17) mg/dL Creatinine (0.7-1.2) mg/dL Est GFR ( Amer) Est GFR (Non-Af Amer) POC Glucose (mg/dL) 163 H 156 H (65-110) mg/dL Random Glucose (65-105) mg/dL Calcium (8.6-10.4) mg/dl % Saturation (20-55) Ferritin ng/mL Total Bilirubin (0.2-1.3) mg/dL AST (14-36) U/L ALT (9-52) U/L Alkaline Phosphatase (38-126) U/L Troponin I (0.00-0.120) ng/mL Total Protein (6.3-8.3) g/dL Total Protein (PEP) (6.1-8.1) g/dL Albumin (3.5-5.0) g/dL Globulin (2.2-3.9) gm/dL Albumin/Globulin Ratio (1.0-2.1) Arterial Blood Potassium (3.6-5.2) mmol/L Venous Blood Potassium (3.6-5.2) mmol/L Urine Color (YELLOW) Urine Clarity (Clear) Urine pH (5.0-8.0) Ur Specific [place] (1.003-1.030) Urine Protein (NEGATIVE) mg/dL Urine Glucose (UA) (Normal) mg/dL Urine Ketones (NEGATIVE) mg/dL Urine Blood (NEGATIVE) Urine Nitrate (NEGATIVE) Urine Bilirubin (NEGATIVE) Urine Urobilinogen (0.2-1.0) mg/dL Ur Leukocyte Esterase (Negative) [place]/uL Urine WBC (Auto) (0-5) /hpf Urine RBC (Auto) (0-3) /hpf Ur Squamous Epith Cells (0-5) /hpf Hyaline Casts (0-2) /lpf Ur Random Creatinine U Random Total Protein (0.0-12.0) mg/dL Ur Random Sodium mmol/L Ur L.pneumophila Ag (NEGATIVE) Mycoplasma pneumon IgM (NEGATIVE) Blood Type O POSITIVE Antibody Screen Negative 09/12/17 09/12/17 09/12/17 Range/Units 06:20 06:20 05:03 WBC 6.0 (4.8-10.8) K/uL RBC 2.97 L (3.80-5.20) Mil/uL Hgb 7.0 L (11.0-16.0) g/dL Hct 21.6 L (34.0-47.0) % MCV 72.6 L (81.0-99.0) fL MCH 23.5 L (27.0-31.0) pg MCHC 32.4 L (33.0-37.0) g/dL RDW 16.5 H (11.5-14.5) % Plt Count 180 (130-400) K/uL MPV 9.7 (7.2-11.7) fL Neut % (Auto) 67.3 (50.0-75.0) % Lymph % (Auto) 16.9 L (20.0-40.0) % Maury % (Auto) 14.9 H (0.0-10.0) % Eos % (Auto) 0.2 (0.0-4.0) % Baso % (Auto) 0.7 (0.0-2.0) % Neut # 4.0 (1.8-7.0) K/uL Lymph # 1.0 (1.0-4.3) K/uL Maury # 0.9 H (0.0-0.8) K/uL Eos # 0.0 (0.0-0.7) K/uL Baso # 0.0 (0.0-0.2) K/uL Puncture Site pCO2 (35-45) mm/Hg pO2 49 (80-100) mm/Hg HCO3 (21-28) mmol/L ABG pH (7.35-7.45) ABG Total CO2 (22-28) mmol/L ABG O2 Saturation (95-98) % ABG Base Excess (-2.0-3.0) mmol/L Guy Test ABG Potassium (3.6-5.2) mmol/L VBG pH 7.25 L (7.32-7.43) VBG pCO2 39 L (40-60) mmHg VBG HCO3 17.0 mmol/L VBG Total CO2 18.3 L (22-28) mmol/L VBG O2 Sat (Calc) 85.5 H (40-65) % VBG Base Excess -9.5 L (0.0-2.0) mmol/L VBG Potassium 4.5 (3.6-5.2) mmol/L A-a O2 Difference 116.0 mm/Hg Respiratory Index Glucose 155 H (65-105) mg/dl Lactate 2.2 H (0.7-2.1) mmol/L Mechanical Rate FiO2 30.0 % Expiratory BiPAP 5 Sodium 134 141.0 (132-148) mmol/L Potassium 4.7 (3.6-5.2) mmol/L Chloride 102 106.0 (98-107) mmol/L Carbon Dioxide 18 L (22-30) mmol/L Anion Gap 20 (10-20) BUN 52 H (7-17) mg/dL Creatinine 2.4 H (0.7-1.2) mg/dL Est GFR ( Amer) 23 Est GFR (Non-Af Amer) 19 POC Glucose (mg/dL) (65-110) mg/dL Random Glucose 118 H (65-105) mg/dL Calcium 7.9 L (8.6-10.4) mg/dl % Saturation (20-55) Ferritin ng/mL Total Bilirubin 0.8 (0.2-1.3) mg/dL AST 49 H D (14-36) U/L ALT 41 (9-52) U/L Alkaline Phosphatase 45 (38-126) U/L Troponin I (0.00-0.120) ng/mL Total Protein 5.8 L (6.3-8.3) g/dL Total Protein (PEP) (6.1-8.1) g/dL Albumin 3.3 L (3.5-5.0) g/dL Globulin 2.5 (2.2-3.9) gm/dL Albumin/Globulin Ratio 1.3 (1.0-2.1) Arterial Blood Potassium (3.6-5.2) mmol/L Venous Blood Potassium 4.5 (3.6-5.2) mmol/L Urine Color (YELLOW) Urine Clarity (Clear) Urine pH (5.0-8.0) Ur Specific [place] (1.003-1.030) Urine Protein (NEGATIVE) mg/dL Urine Glucose (UA) (Normal) mg/dL Urine Ketones (NEGATIVE) mg/dL Urine Blood (NEGATIVE) Urine Nitrate (NEGATIVE) Urine Bilirubin (NEGATIVE) Urine Urobilinogen (0.2-1.0) mg/dL Ur Leukocyte Esterase (Negative) [place]/uL Urine WBC (Auto) (0-5) /hpf Urine RBC (Auto) (0-3) /hpf Ur Squamous Epith Cells (0-5) /hpf Hyaline Casts (0-2) /lpf Ur Random Creatinine U Random Total Protein (0.0-12.0) mg/dL Ur Random Sodium mmol/L Ur L.pneumophila Ag (NEGATIVE) Mycoplasma pneumon IgM (NEGATIVE) Blood Type Antibody Screen 09/12/17 09/11/17 09/11/17 Range/Units 04:51 21:29 21:29 WBC (4.8-10.8) K/uL RBC (3.80-5.20) Mil/uL Hgb (11.0-16.0) g/dL Hct (34.0-47.0) % MCV (81.0-99.0) fL MCH (27.0-31.0) pg MCHC (33.0-37.0) g/dL RDW (11.5-14.5) % Plt Count (130-400) K/uL MPV (7.2-11.7) fL Neut % (Auto) (50.0-75.0) % Lymph % (Auto) (20.0-40.0) % Ma[place] % (Auto) (0.0-10.0) % Eos % (Auto) (0.0-4.0) % Baso % (Auto) (0.0-2.0) % Neut # (1.8-7.0) K/uL Lymph # (1.0-4.3) K/uL Maury # (0.0-0.8) K/uL Eos # (0.0-0.7) K/uL Baso # (0.0-0.2) K/uL Puncture Site pCO2 (35-45) mm/Hg pO2 (80-100) mm/Hg HCO3 (21-28) mmol/L ABG pH (7.35-7.45) ABG Total CO2 (22-28) mmol/L ABG O2 Saturation (95-98) % ABG Base Excess (-2.0-3.0) mmol/L Guy Test ABG Potassium (3.6-5.2) mmol/L VBG pH (7.32-7.43) VBG pCO2 (40-60) mmHg VBG HCO3 mmol/L VBG Total CO2 (22-28) mmol/L VBG O2 Sat (Calc) (40-65) % VBG Base Excess (0.0-2.0) mmol/L VBG Potassium (3.6-5.2) mmol/L A-a O2 Difference mm/Hg Respiratory Index Glucose (65-105) mg/dl Lactate (0.7-2.1) mmol/L Mechanical Rate FiO2 % Expiratory BiPAP Sodium (132-148) mmol/L Potassium (3.6-5.2) mmol/L Chloride (98-107) mmol/L Carbon Dioxide (22-30) mmol/L Anion Gap (10-20) BUN (7-17) mg/dL Creatinine (0.7-1.2) mg/dL Est GFR ( Amer) Est GFR (Non-Af Amer) POC Glucose (mg/dL) 147 H (65-110) mg/dL Random Glucose (65-105) mg/dL Calcium (8.6-10.4) mg/dl % Saturation (20-55) Ferritin ng/mL Total Bilirubin (0.2-1.3) mg/dL AST (14-36) U/L ALT (9-52) U/L Alkaline Phosphatase (38-126) U/L Troponin I 1.0300 H* (0.00-0.120) ng/mL Total Protein (6.3-8.3) g/dL Total Protein (PEP) (6.1-8.1) g/dL Albumin (3.5-5.0) g/dL Globulin (2.2-3.9) gm/dL Albumin/Globulin Ratio (1.0-2.1) Arterial Blood Potassium (3.6-5.2) mmol/L Venous Blood Potassium (3.6-5.2) mmol/L Urine Color (YELLOW) Urine Clarity (Clear) Urine pH (5.0-8.0) Ur Specific [place] (1.003-1.030) Urine Protein (NEGATIVE) mg/dL Urine Glucose (UA) (Normal) mg/dL Urine Ketones (NEGATIVE) mg/dL Urine Blood (NEGATIVE) Urine Nitrate (NEGATIVE) Urine Bilirubin (NEGATIVE) Urine Urobilinogen (0.2-1.0) mg/dL Ur Leukocyte Esterase (Negative) [place]/uL Urine WBC (Auto) (0-5) /hpf Urine RBC (Auto) (0-3) /hpf Ur Squamous Epith Cells (0-5) /hpf Hyaline Casts (0-2) /lpf Ur Random Creatinine U Random Total Protein (0.0-12.0) mg/dL Ur Random Sodium mmol/L Ur L.pneumophila Ag Negative (NEGATIVE) Mycoplasma pneumon IgM Negative (NEGATIVE) Blood Type Antibody Screen 09/11/17 09/11/17 09/11/17 Range/Units 21:22 20:35 17:58 WBC (4.8-10.8) K/uL RBC (3.80-5.20) Mil/uL Hgb (11.0-16.0) g/dL Hct (34.0-47.0) % MCV (81.0-99.0) fL MCH (27.0-31.0) pg MCHC (33.0-37.0) g/dL RDW (11.5-14.5) % Plt Count (130-400) K/uL MPV (7.2-11.7) fL Neut % (Auto) (50.0-75.0) % Lymph % (Auto) (20.0-40.0) % Maury % (Auto) (0.0-10.0) % Eos % (Auto) (0.0-4.0) % Baso % (Auto) (0.0-2.0) % Neut # (1.8-7.0) K/uL Lymph # (1.0-4.3) K/uL Maury # (0.0-0.8) K/uL Eos # (0.0-0.7) K/uL Baso # (0.0-0.2) K/uL Puncture Site Rba pCO2 34 L (35-45) mm/Hg pO2 313 H (80-100) mm/Hg HCO3 14.7 L (21-28) mmol/L ABG pH 7.21 L (7.35-7.45) ABG Total CO2 14.6 L (22-28) mmol/L ABG O2 Saturation 97.7 (95-98) % ABG Base Excess -13.2 L (-2.0-3.0) mmol/L Guy Test Na ABG Potassium 5.0 (3.6-5.2) mmol/L VBG pH (7.32-7.43) VBG pCO2 (40-60) mmHg VBG HCO3 mmol/L VBG Total CO2 (22-28) mmol/L VBG O2 Sat (Calc) (40-65) % VBG Base Excess (0.0-2.0) mmol/L VBG Potassium (3.6-5.2) mmol/L A-a O2 Difference 215.0 mm/Hg Respiratory Index 0.7 Glucose 117 H (65-105) mg/dl Lactate 1.2 (0.7-2.1) mmol/L Mechanical Rate 16 FiO2 80.0 % Expiratory BiPAP Sodium 136.0 (132-148) mmol/L Potassium (3.6-5.2) mmol/L Chloride 106.0 (98-107) mmol/L Carbon Dioxide (22-30) mmol/L Anion Gap (10-20) BUN (7-17) mg/dL Creatinine (0.7-1.2) mg/dL Est GFR ( Amer) Est GFR (Non-Af Amer) POC Glucose (mg/dL) 98 (65-110) mg/dL Random Glucose (65-105) mg/dL Calcium (8.6-10.4) mg/dl % Saturation (20-55) Ferritin ng/mL Total Bilirubin (0.2-1.3) mg/dL AST (14-36) U/L ALT (9-52) U/L Alkaline Phosphatase (38-126) U/L Troponin I (0.00-0.120) ng/mL Total Protein (6.3-8.3) g/dL Total Protein (PEP) (6.1-8.1) g/dL Albumin (3.5-5.0) g/dL Globulin (2.2-3.9) gm/dL Albumin/Globulin Ratio (1.0-2.1) Arterial Blood Potassium 5.0 (3.6-5.2) mmol/L Venous Blood Potassium (3.6-5.2) mmol/L Urine Color (YELLOW) Urine Clarity (Clear) Urine pH (5.0-8.0) Ur Specific [place] (1.003-1.030) Urine Protein (NEGATIVE) mg/dL Urine Glucose (UA) (Normal) mg/dL Urine Ketones (NEGATIVE) mg/dL Urine Blood (NEGATIVE) Urine Nitrate (NEGATIVE) Urine Bilirubin (NEGATIVE) Urine Urobilinogen (0.2-1.0) mg/dL Ur Leukocyte Esterase (Negative) [place]/uL Urine WBC (Auto) (0-5) /hpf Urine RBC (Auto) (0-3) /hpf Ur Squamous Epith Cells (0-5) /hpf Hyaline Casts (0-2) /lpf Ur Random Creatinine 54.7 U Random Total Protein 40.0 H (0.0-12.0) mg/dL Ur Random Sodium mmol/L Ur L.pneumophila Ag (NEGATIVE) Mycoplasma pneumon IgM (NEGATIVE) Blood Type Antibody Screen 09/11/17 09/11/17 09/11/17 Range/Units 17:11 17:11 17:11 WBC 5.8 (4.8-10.8) K/uL RBC 3.32 L (3.80-5.20) Mil/uL Hgb 7.5 L (11.0-16.0) g/dL Hct 24.1 L (34.0-47.0) % MCV 72.6 L (81.0-99.0) fL MCH 22.6 L (27.0-31.0) pg MCHC 31.2 L (33.0-37.0) g/dL RDW 16.6 H (11.5-14.5) % Plt Count 182 (130-400) K/uL MPV 9.0 (7.2-11.7) fL Neut % (Auto) 63.2 (50.0-75.0) % Lymph % (Auto) 22.7 (20.0-40.0) % Maury % (Auto) 13.2 H (0.0-10.0) % Eos % (Auto) 0.2 (0.0-4.0) % Baso % (Auto) 0.7 (0.0-2.0) % Neut # 3.6 (1.8-7.0) K/uL Lymph # 1.3 (1.0-4.3) K/uL Maury # 0.8 (0.0-0.8) K/uL Eos # 0.0 (0.0-0.7) K/uL Baso # 0.0 (0.0-0.2) K/uL Puncture Site pCO2 (35-45) mm/Hg pO2 (80-100) mm/Hg HCO3 (21-28) mmol/L ABG pH (7.35-7.45) ABG Total CO2 (22-28) mmol/L ABG O2 Saturation (95-98) % ABG Base Excess (-2.0-3.0) mmol/L Guy Test ABG Potassium (3.6-5.2) mmol/L VBG pH (7.32-7.43) VBG pCO2 (40-60) mmHg VBG HCO3 mmol/L VBG Total CO2 (22-28) mmol/L VBG O2 Sat (Calc) (40-65) % VBG Base Excess (0.0-2.0) mmol/L VBG Potassium (3.6-5.2) mmol/L A-a O2 Difference mm/Hg Respiratory Index Glucose (65-105) mg/dl Lactate (0.7-2.1) mmol/L Mechanical Rate FiO2 % Expiratory BiPAP Sodium 131 L (132-148) mmol/L Potassium 4.6 (3.6-5.2) mmol/L Chloride 102 (98-107) mmol/L Carbon Dioxide 14 L (22-30) mmol/L Anion Gap 21 H (10-20) BUN 46 H (7-17) mg/dL Creatinine 2.2 H (0.7-1.2) mg/dL Est GFR ( Amer) 26 Est GFR (Non-Af Amer) 21 POC Glucose (mg/dL) (65-110) mg/dL Random Glucose 83 (65-105) mg/dL Calcium 7.8 L (8.6-10.4) mg/dl % Saturation (20-55) Ferritin ng/mL Total Bilirubin 0.6 (0.2-1.3) mg/dL AST 36 D (14-36) U/L ALT 42 (9-52) U/L Alkaline Phosphatase 54 (38-126) U/L Troponin I (0.00-0.120) ng/mL Total Protein 6.1 L (6.3-8.3) g/dL Total Protein (PEP) (6.1-8.1) g/dL Albumin 3.6 (3.5-5.0) g/dL Globulin 2.5 (2.2-3.9) gm/dL Albumin/Globulin Ratio 1.4 (1.0-2.1) Arterial Blood Potassium (3.6-5.2) mmol/L Venous Blood Potassium (3.6-5.2) mmol/L Urine Color (YELLOW) Urine Clarity (Clear) Urine pH (5.0-8.0) Ur Specific [place] (1.003-1.030) Urine Protein (NEGATIVE) mg/dL Urine Glucose (UA) (Normal) mg/dL Urine Ketones (NEGATIVE) mg/dL Urine Blood (NEGATIVE) Urine Nitrate (NEGATIVE) Urine Bilirubin (NEGATIVE) Urine Urobilinogen (0.2-1.0) mg/dL Ur Leukocyte Esterase (Negative) [place]/uL Urine WBC (Auto) (0-5) /hpf Urine RBC (Auto) (0-3) /hpf Ur Squamous Epith Cells (0-5) /hpf Hyaline Casts (0-2) /lpf Ur Random Creatinine U Random Total Protein (0.0-12.0) mg/dL Ur Random Sodium mmol/L Ur L.pneumophila Ag (NEGATIVE) Mycoplasma pneumon IgM (NEGATIVE) Blood Type O POSITIVE Antibody Screen Negative 09/11/17 09/11/17 09/11/17 Range/Units 17:11 17:11 16:17 WBC (4.8-10.8) K/uL RBC (3.80-5.20) Mil/uL Hgb (11.0-16.0) g/dL Hct (34.0-47.0) % MCV (81.0-99.0) fL MCH (27.0-31.0) pg MCHC (33.0-37.0) g/dL RDW (11.5-14.5) % Plt Count (130-400) K/uL MPV (7.2-11.7) fL Neut % (Auto) (50.0-75.0) % Lymph % (Auto) (20.0-40.0) % Maury % (Auto) (0.0-10.0) % Eos % (Auto) (0.0-4.0) % Baso % (Auto) (0.0-2.0) % Neut # (1.8-7.0) K/uL Lymph # (1.0-4.3) K/uL Maury # (0.0-0.8) K/uL Eos # (0.0-0.7) K/uL Baso # (0.0-0.2) K/uL Puncture Site pCO2 (35-45) mm/Hg pO2 (80-100) mm/Hg HCO3 (21-28) mmol/L ABG pH (7.35-7.45) ABG Total CO2 (22-28) mmol/L ABG O2 Saturation (95-98) % ABG Base Excess (-2.0-3.0) mmol/L Guy Test ABG Potassium (3.6-5.2) mmol/L VBG pH (7.32-7.43) VBG pCO2 (40-60) mmHg VBG HCO3 mmol/L VBG Total CO2 (22-28) mmol/L VBG O2 Sat (Calc) (40-65) % VBG Base Excess (0.0-2.0) mmol/L VBG Potassium (3.6-5.2) mmol/L A-a O2 Difference mm/Hg Respiratory Index Glucose (65-105) mg/dl Lactate (0.7-2.1) mmol/L Mechanical Rate FiO2 % Expiratory BiPAP Sodium (132-148) mmol/L Potassium (3.6-5.2) mmol/L Chloride (98-107) mmol/L Carbon Dioxide (22-30) mmol/L Anion Gap (10-20) BUN (7-17) mg/dL Creatinine (0.7-1.2) mg/dL Est GFR ( Amer) Est GFR (Non-Af Amer) POC Glucose (mg/dL) 91 (65-110) mg/dL Random Glucose (65-105) mg/dL Calcium (8.6-10.4) mg/dl % Saturation (20-55) Ferritin ng/mL Total Bilirubin (0.2-1.3) mg/dL AST (14-36) U/L ALT (9-52) U/L Alkaline Phosphatase (38-126) U/L Troponin I (0.00-0.120) ng/mL Total Protein (6.3-8.3) g/dL Total Protein (PEP) (6.1-8.1) g/dL Albumin (3.5-5.0) g/dL Globulin (2.2-3.9) gm/dL Albumin/Globulin Ratio (1.0-2.1) Arterial Blood Potassium (3.6-5.2) mmol/L Venous Blood Potassium (3.6-5.2) mmol/L Urine Color Yellow (YELLOW) Urine Clarity Clear (Clear) Urine pH 5.0 (5.0-8.0) Ur Specific [place] 1.009 (1.003-1.030) Urine Protein 1+ H (NEGATIVE) mg/dL Urine Glucose (UA) Normal (Normal) mg/dL Urine Ketones Trace (NEGATIVE) mg/dL Urine Blood 1+ H (NEGATIVE) Urine Nitrate Negative (NEGATIVE) Urine Bilirubin Negative (NEGATIVE) Urine Urobilinogen Normal (0.2-1.0) mg/dL Ur Leukocyte Esterase 2+ H (Negative) [place]/uL Urine WBC (Auto) 19 H (0-5) /hpf Urine RBC (Auto) 6 H (0-3) /hpf Ur Squamous Epith Cells 2 (0-5) /hpf Hyaline Casts 6-10 H (0-2) /lpf Ur Random Creatinine Cancelled U Random Total Protein (0.0-12.0) mg/dL Ur Random Sodium 58 mmol/L Ur L.pneumophila Ag (NEGATIVE) Mycoplasma pneumon IgM (NEGATIVE) Blood Type Antibody Screen 09/11/17 Range/Units 09:16 WBC (4.8-10.8) K/uL RBC (3.80-5.20) Mil/uL Hgb (11.0-16.0) g/dL Hct (34.0-47.0) % MCV (81.0-99.0) fL MCH (27.0-31.0) pg MCHC (33.0-37.0) g/dL RDW (11.5-14.5) % Plt Count (130-400) K/uL MPV (7.2-11.7) fL Neut % (Auto) (50.0-75.0) % Lymph % (Auto) (20.0-40.0) % Maury % (Auto) (0.0-10.0) % Eos % (Auto) (0.0-4.0) % Baso % (Auto) (0.0-2.0) % Neut # (1.8-7.0) K/uL Lymph # (1.0-4.3) K/uL [place] # (0.0-0.8) K/uL Eos # (0.0-0.7) K/uL Baso # (0.0-0.2) K/uL Puncture Site pCO2 (35-45) mm/Hg pO2 (80-100) mm/Hg HCO3 (21-28) mmol/L ABG pH (7.35-7.45) ABG Total CO2 (22-28) mmol/L ABG O2 Saturation (95-98) % ABG Base Excess (-2.0-3.0) mmol/L Guy Test ABG Potassium (3.6-5.2) mmol/L VBG pH (7.32-7.43) VBG pCO2 (40-60) mmHg VBG HCO3 mmol/L VBG Total CO2 (22-28) mmol/L VBG O2 Sat (Calc) (40-65) % VBG Base Excess (0.0-2.0) mmol/L VBG Potassium (3.6-5.2) mmol/L A-a O2 Difference mm/Hg Respiratory Index Glucose (65-105) mg/dl Lactate (0.7-2.1) mmol/L Mechanical Rate FiO2 % Expiratory BiPAP Sodium (132-148) mmol/L Potassium (3.6-5.2) mmol/L Chloride (98-107) mmol/L Carbon Dioxide (22-30) mmol/L Anion Gap (10-20) BUN (7-17) mg/dL Creatinine (0.7-1.2) mg/dL Est GFR ( Amer) Est GFR (Non-Af Amer) POC Glucose (mg/dL) (65-110) mg/dL Random Glucose (65-105) mg/dL Calcium (8.6-10.4) mg/dl % Saturation (20-55) Ferritin ng/mL Total Bilirubin (0.2-1.3) mg/dL AST (14-36) U/L ALT (9-52) U/L Alkaline Phosphatase (38-126) U/L Troponin I (0.00-0.120) ng/mL Total Protein (6.3-8.3) g/dL Total Protein (PEP) 5.7 L (6.1-8.1) g/dL Albumin (3.5-5.0) g/dL Globulin (2.2-3.9) gm/dL Albumin/Globulin Ratio (1.0-2.1) Arterial Blood Potassium (3.6-5.2) mmol/L Venous Blood Potassium (3.6-5.2) mmol/L Urine Color (YELLOW) Urine Clarity (Clear) Urine pH (5.0-8.0) Ur Specific [place] (1.003-1.030) Urine Protein (NEGATIVE) mg/dL Urine Glucose (UA) (Normal) mg/dL Urine Ketones (NEGATIVE) mg/dL Urine Blood (NEGATIVE) Urine Nitrate (NEGATIVE) Urine Bilirubin (NEGATIVE) Urine Urobilinogen (0.2-1.0) mg/dL Ur Leukocyte Esterase (Negative) [place]/uL Urine WBC (Auto) (0-5) /hpf Urine RBC (Auto) (0-3) /hpf Ur Squamous Epith Cells (0-5) /hpf Hyaline Casts (0-2) /lpf Ur Random Creatinine U Random Total Protein (0.0-12.0) mg/dL Ur Random Sodium mmol/L Ur L.pneumophila Ag (NEGATIVE) Mycoplasma pneumon IgM (NEGATIVE) Blood Type Antibody Screen Laboratory Results - last 24 hr 09/11/17 09/11/17 09/11/17 09:16 16:17 17:11 WBC RBC Hgb Hct MCV MCH MCHC RDW Plt Count MPV Neut % (Auto) Lymph % (Auto) Maury % (Auto) Eos % (Auto) Baso % (Auto) Neut # Lymph # Maury # Eos # Baso # Puncture Site pCO2 pO2 HCO3 ABG pH ABG Total CO2 ABG O2 Saturation ABG Base Excess Guy Test ABG Potassium VBG pH VBG pCO2 VBG HCO3 VBG Total CO2 VBG O2 Sat (Calc) VBG Base Excess VBG Potassium A-a O2 Difference Respiratory Index Glucose Lactate Mechanical Rate FiO2 Expiratory BiPAP Sodium Potassium Chloride Carbon Dioxide Anion Gap BUN Creatinine Est GFR ( Amer) Est GFR (Non-Af Amer) POC Glucose (mg/dL) 91 Random Glucose Calcium % Saturation Ferritin Total Bilirubin AST ALT Alkaline Phosphatase Troponin I Total Protein Total Protein (PEP) 5.7 L Albumin Globulin Albumin/Globulin Ratio Arterial Blood Potassium Venous Blood Potassium Urine Color Yellow Urine Clarity Clear Urine pH 5.0 Ur Specific [place] 1.009 Urine Protein 1+ H Urine Glucose (UA) Normal Urine Ketones Trace Urine Blood 1+ H Urine Nitrate Negative Urine Bilirubin Negative Urine Urobilinogen Normal Ur Leukocyte Esterase 2+ H Urine WBC (Auto) 19 H Urine RBC (Auto) 6 H Ur Squamous Epith Cells 2 Hyaline Casts 6-10 H Ur Random Creatinine U Random Total Protein Ur Random Sodium Ur L.pneumophila Ag Mycoplasma pneumon IgM Blood Type Antibody Screen 09/11/17 09/11/17 09/11/17 17:11 17:11 17:11 WBC 5.8 RBC 3.32 L Hgb 7.5 L Hct 24.1 L MCV 72.6 L MCH 22.6 L MCHC 31.2 L RDW 16.6 H Plt Count 182 MPV 9.0 Neut % (Auto) 63.2 Lymph % (Auto) 22.7 Maury % (Auto) 13.2 H Eos % (Auto) 0.2 Baso % (Auto) 0.7 Neut # 3.6 Lymph # 1.3 Maury # 0.8 Eos # 0.0 Baso # 0.0 Puncture Site pCO2 pO2 HCO3 ABG pH ABG Total CO2 ABG O2 Saturation ABG Base Excess Guy Test ABG Potassium VBG pH VBG pCO2 VBG HCO3 VBG Total CO2 VBG O2 Sat (Calc) VBG Base Excess VBG Potassium A-a O2 Difference Respiratory Index Glucose Lactate Mechanical Rate FiO2 Expiratory BiPAP Sodium 131 L Potassium 4.6 Chloride 102 Carbon Dioxide 14 L Anion Gap 21 H BUN 46 H Creatinine 2.2 H Est GFR ( Amer) 26 Est GFR (Non-Af Amer) 21 POC Glucose (mg/dL) Random Glucose 83 Calcium 7.8 L % Saturation Ferritin Total Bilirubin 0.6 AST 36 D ALT 42 Alkaline Phosphatase 54 Troponin I Total Protein 6.1 L Total Protein (PEP) Albumin 3.6 Globulin 2.5 Albumin/Globulin Ratio 1.4 Arterial Blood Potassium Venous Blood Potassium Urine Color Urine Clarity Urine pH Ur Specific [place] Urine Protein Urine Glucose (UA) Urine Ketones Urine Blood Urine Nitrate Urine Bilirubin Urine Urobilinogen Ur Leukocyte Esterase Urine WBC (Auto) Urine RBC (Auto) Ur Squamous Epith Cells Hyaline Casts Ur Random Creatinine Cancelled U Random Total Protein Ur Random Sodium 58 Ur L.pneumophila Ag Mycoplasma pneumon IgM Blood Type Antibody Screen 09/11/17 09/11/17 09/11/17 17:11 17:58 20:35 WBC RBC Hgb Hct MCV MCH MCHC RDW Plt Count MPV Neut % (Auto) Lymph % (Auto) Maury % (Auto) Eos % (Auto) Baso % (Auto) Neut # Lymph # Maury # Eos # Baso # Puncture Site Rba pCO2 34 L pO2 313 H HCO3 14.7 L ABG pH 7.21 L ABG Total CO2 14.6 L ABG O2 Saturation 97.7 ABG Base Excess -13.2 L Guy Test Na ABG Potassium 5.0 VBG pH VBG pCO2 VBG HCO3 VBG Total CO2 VBG O2 Sat (Calc) VBG Base Excess VBG Potassium A-a O2 Difference 215.0 Respiratory Index 0.7 Glucose 117 H Lactate 1.2 Mechanical Rate 16 FiO2 80.0 Expiratory BiPAP Sodium 136.0 Potassium Chloride 106.0 Carbon Dioxide Anion Gap BUN Creatinine Est GFR ( Amer) Est GFR (Non-Af Amer) POC Glucose (mg/dL) Random Glucose Calcium % Saturation Ferritin Total Bilirubin AST ALT Alkaline Phosphatase Troponin I Total Protein Total Protein (PEP) Albumin Globulin Albumin/Globulin Ratio Arterial Blood Potassium 5.0 Venous Blood Potassium Urine Color Urine Clarity Urine pH Ur Specific [place] Urine Protein Urine Glucose (UA) Urine Ketones Urine Blood Urine Nitrate Urine Bilirubin Urine Urobilinogen Ur Leukocyte Esterase Urine WBC (Auto) Urine RBC (Auto) Ur Squamous Epith Cells Hyaline Casts Ur Random Creatinine 54.7 U Random Total Protein 40.0 H Ur Random Sodium Ur L.pneumophila Ag Mycoplasma pneumon IgM Blood Type O POSITIVE Antibody Screen Negative 09/11/17 09/11/17 09/11/17 21:22 21:29 21:29 WBC RBC Hgb Hct MCV MCH MCHC RDW Plt Count MPV Neut % (Auto) Lymph % (Auto) Maury % (Auto) Eos % (Auto) Baso % (Auto) Neut # Lymph # Maury # Eos # Baso # Puncture Site pCO2 pO2 HCO3 ABG pH ABG Total CO2 ABG O2 Saturation ABG Base Excess Guy Test ABG Potassium VBG pH VBG pCO2 VBG HCO3 VBG Total CO2 VBG O2 Sat (Calc) VBG Base Excess VBG Potassium A-a O2 Difference Respiratory Index Glucose Lactate Mechanical Rate FiO2 Expiratory BiPAP Sodium Potassium Chloride Carbon Dioxide Anion Gap BUN Creatinine Est GFR ( Amer) Est GFR (Non-Af Amer) POC Glucose (mg/dL) 98 Random Glucose Calcium % Saturation Ferritin Total Bilirubin AST ALT Alkaline Phosphatase Troponin I 1.0300 H* Total Protein Total Protein (PEP) Albumin Globulin Albumin/Globulin Ratio Arterial Blood Potassium Venous Blood Potassium Urine Color Urine Clarity Urine pH Ur Specific [place] Urine Protein Urine Glucose (UA) Urine Ketones Urine Blood Urine Nitrate Urine Bilirubin Urine Urobilinogen Ur Leukocyte Esterase Urine WBC (Auto) Urine RBC (Auto) Ur Squamous Epith Cells Hyaline Casts Ur Random Creatinine U Random Total Protein Ur Random Sodium Ur L.pneumophila Ag Negative Mycoplasma pneumon IgM Negative Blood Type Antibody Screen 09/12/17 09/12/17 09/12/17 04:51 05:03 06:20 WBC 6.0 RBC 2.97 L Hgb 7.0 L Hct 21.6 L MCV 72.6 L MCH 23.5 L MCHC 32.4 L RDW 16.5 H Plt Count 180 MPV 9.7 Neut % (Auto) 67.3 Lymph % (Auto) 16.9 L Maury % (Auto) 14.9 H Eos % (Auto) 0.2 Baso % (Auto) 0.7 Neut # 4.0 Lymph # 1.0 Maury # 0.9 H Eos # 0.0 Baso # 0.0 Puncture Site pCO2 pO2 49 HCO3 ABG pH ABG Total CO2 ABG O2 Saturation ABG Base Excess Guy Test ABG Potassium VBG pH 7.25 L VBG pCO2 39 L VBG HCO3 17.0 VBG Total CO2 18.3 L VBG O2 Sat (Calc) 85.5 H VBG Base Excess -9.5 L VBG Potassium 4.5 A-a O2 Difference 116.0 Respiratory Index Glucose 155 H Lactate 2.2 H Mechanical Rate FiO2 30.0 Expiratory BiPAP 5 Sodium 141.0 Potassium Chloride 106.0 Carbon Dioxide Anion Gap BUN Creatinine Est GFR ( Amer) Est GFR (Non-Af Amer) POC Glucose (mg/dL) 147 H Random Glucose Calcium % Saturation Ferritin Total Bilirubin AST ALT Alkaline Phosphatase Troponin I Total Protein Total Protein (PEP) Albumin Globulin Albumin/Globulin Ratio Arterial Blood Potassium Venous Blood Potassium 4.5 Urine Color Urine Clarity Urine pH Ur Specific [place] Urine Protein Urine Glucose (UA) Urine Ketones Urine Blood Urine Nitrate Urine Bilirubin Urine Urobilinogen Ur Leukocyte Esterase Urine WBC (Auto) Urine RBC (Auto) Ur Squamous Epith Cells Hyaline Casts Ur Random Creatinine U Random Total Protein Ur Random Sodium Ur L.pneumophila Ag Mycoplasma pneumon IgM Blood Type Antibody Screen 09/12/17 09/12/17 09/12/17 06:20 07:15 07:45 WBC RBC Hgb Hct MCV MCH MCHC RDW Plt Count MPV Neut % (Auto) Lymph % (Auto) Maury % (Auto) Eos % (Auto) Baso % (Auto) Neut # Lymph # Maury # Eos # Baso # Puncture Site pCO2 pO2 HCO3 ABG pH ABG Total CO2 ABG O2 Saturation ABG Base Excess Guy Test ABG Potassium VBG pH VBG pCO2 VBG HCO3 VBG Total CO2 VBG O2 Sat (Calc) VBG Base Excess VBG Potassium A-a O2 Difference Respiratory Index Glucose Lactate Mechanical Rate FiO2 Expiratory BiPAP Sodium 134 Potassium 4.7 Chloride 102 Carbon Dioxide 18 L Anion Gap 20 BUN 52 H Creatinine 2.4 H Est GFR ( Amer) 23 Est GFR (Non-Af Amer) 19 POC Glucose (mg/dL) 156 H Random Glucose 118 H Calcium 7.9 L % Saturation Ferritin Total Bilirubin 0.8 AST 49 H D ALT 41 Alkaline Phosphatase 45 Troponin I Total Protein 5.8 L Total Protein (PEP) Albumin 3.3 L Globulin 2.5 Albumin/Globulin Ratio 1.3 Arterial Blood Potassium Venous Blood Potassium Urine Color Urine Clarity Urine pH Ur Specific [place] Urine Protein Urine Glucose (UA) Urine Ketones Urine Blood Urine Nitrate Urine Bilirubin Urine Urobilinogen Ur Leukocyte Esterase Urine WBC (Auto) Urine RBC (Auto) Ur Squamous Epith Cells Hyaline Casts Ur Random Creatinine U Random Total Protein Ur Random Sodium Ur L.pneumophila Ag Mycoplasma pneumon IgM Blood Type O POSITIVE Antibody Screen Negative 09/12/17 09/12/17 09/12/17 11:28 13:54 13:54 WBC RBC Hgb Hct MCV MCH MCHC RDW Plt Count MPV Neut % (Auto) Lymph % (Auto) Maury % (Auto) Eos % (Auto) Baso % (Auto) Neut # Lymph # Maury # Eos # Baso # Puncture Site pCO2 pO2 HCO3 ABG pH ABG Total CO2 ABG O2 Saturation ABG Base Excess Guy Test ABG Potassium VBG pH VBG pCO2 VBG HCO3 VBG Total CO2 VBG O2 Sat (Calc) VBG Base Excess VBG Potassium A-a O2 Difference Respiratory Index Glucose Lactate Mechanical Rate FiO2 Expiratory BiPAP Sodium Potassium Chloride Carbon Dioxide Anion Gap BUN Creatinine Est GFR ( Amer) Est GFR (Non-Af Amer) POC Glucose (mg/dL) 163 H Random Glucose Calcium % Saturation 39 Ferritin 41.5 Total Bilirubin AST ALT Alkaline Phosphatase Troponin I Total Protein Total Protein (PEP) Albumin Globulin Albumin/Globulin Ratio Arterial Blood Potassium Venous Blood Potassium Urine Color Urine Clarity Urine pH Ur Specific [place] Urine Protein Urine Glucose (UA) Urine Ketones Urine Blood Urine Nitrate Urine Bilirubin Urine Urobilinogen Ur Leukocyte Esterase Urine WBC (Auto) Urine RBC (Auto) Ur Squamous Epith Cells Hyaline Casts Ur Random Creatinine U Random Total Protein Ur Random Sodium Ur L.pneumophila Ag Mycoplasma pneumon IgM Blood Type Antibody Screen 09/12/17 13:54 WBC 7.3 RBC 3.80 Hgb 9.1 L D Hct 28.4 L MCV 74.8 L D MCH 24.0 L MCHC 32.1 L RDW 18.4 H Plt Count 200 MPV 9.2 Neut % (Auto) 76.7 H Lymph % (Auto) 13.8 L Maury % (Auto) 9.0 Eos % (Auto) 0.0 Baso % (Auto) 0.5 Neut # 5.6 Lymph # 1.0 Maury # 0.7 Eos # 0.0 Baso # 0.0 Puncture Site pCO2 pO2 HCO3 ABG pH ABG Total CO2 ABG O2 Saturation ABG Base Excess Guy Test ABG Potassium VBG pH VBG pCO2 VBG HCO3 VBG Total CO2 VBG O2 Sat (Calc) VBG Base Excess VBG Potassium A-a O2 Difference Respiratory Index Glucose Lactate Mechanical Rate FiO2 Expiratory BiPAP Sodium Potassium Chloride Carbon Dioxide Anion Gap BUN Creatinine Est GFR ( Amer) Est GFR (Non-Af Amer) POC Glucose (mg/dL) Random Glucose Calcium % Saturation Ferritin Total Bilirubin AST ALT Alkaline Phosphatase Troponin I Total Protein Total Protein (PEP) Albumin Globulin Albumin/Globulin Ratio Arterial Blood Potassium Venous Blood Potassium Urine Color Urine Clarity Urine pH Ur Specific [place] Urine Protein Urine Glucose (UA) Urine Ketones Urine Blood Urine Nitrate Urine Bilirubin Urine Urobilinogen Ur Leukocyte Esterase Urine WBC (Auto) Urine RBC (Auto) Ur Squamous Epith Cells Hyaline Casts Ur Random Creatinine U Random Total Protein Ur Random Sodium Ur L.pneumophila Ag Mycoplasma pneumon IgM Blood Type Antibody Screen EKG/Cardiology Studies: Cardiology / EKG Studies 09/11/17 20:09 EKG [ELECTROCARDIOGRAM] Stat Comment: Mode Of Transportation: Reason For Exam: sob 09/12/17 13:45 EKG [ELECTROCARDIOGRAM] Stat Comment: Mode Of Transportation: Reason For Exam: 1st degree block Critical Care Progress Note - Nutrition Nutrition: Nutrition Category Date Time Status Heart Healthy Diet [DIET] Diets 09/10/17 Dinner Active Attending/Attestation - Attestation I have personally seen and examined this patient.: Yes I have fully participated in the care of the patient.: Yes I have reviewed all pertinent clinical information: Yes Notes (Text): 09/12/17 15:40 pt had one unit of blood family at bed side BP is better but still having sob CXR showing CHF pattern also got lasix will continue to monitor no vomiting now
[2017-09-12] MEDS: (Novolog) Insulin Aspart, Recombinant 100 u/ml 10 ml vial SC SCH ×4 (08:14→22:20)
[2017-09-12 08:22] LABS: LEGIONELLA AG URINE NEGATIVE (NEGATIVE)
[2017-09-12 09:12] LABS: TOTAL PROTEIN, SERUM 5.7 g/dL (6.1-8.1)
--- NOTE | 2017-09-12 09:20 | RAD ---
HISTORY: sob COMPARISON: Portable chest 09/11/2017 6:49 a.m.. FINDINGS: LUNGS: Lesion persists but stable and not increased in the interval. Patient slightly rotated towards the right which may be obscuring medial right basilar airspace disease. Clinically correlate further. Trace of pleural effusion is questioned. None is seen the right. There is no pneumothorax bilaterally. Cardiac silhouette is stable. OSSEOUS STRUCTURES: No significant abnormalities. VISUALIZED UPPER ABDOMEN: Normal. OTHER FINDINGS: None. IMPRESSION: Possible diminishing medial right basilar airspace disease with trace left pleural effusion evident as well as stabilized CHF.
--- NOTE | 2017-09-12 10:03 | RAD ---
HISTORY: sob on bipap COMPARISON: Portable chest 09/11/2017. FINDINGS: LUNGS: Limited patchy density seen the right infrahilar space with remaining lung graham clear. PLEURA: Trace of pleural effusion in question. None is seen the right. No pneumothorax bilaterally. CARDIOVASCULAR: Normalizing pulmonary venous congestion pattern. OSSEOUS STRUCTURES: No significant abnormalities. VISUALIZED UPPER ABDOMEN: Normal. OTHER FINDINGS: None. IMPRESSION: Diminishing CHF with nearly normal pulmonary vascular pattern bilaterally. Limited right infrahilar patchy density is questioned. Trace left pleural effusion blunts the left costophrenic sulcus.
--- NOTE | 2017-09-12 10:42 | CP.PCM.PN ---
Subjective - Date & Time of Evaluation Date of Evaluation: 09/12/17 Time of Evaluation: 10:39 - Subjective Subjective: Awake on bi PAP UO- 1100ml/ 24 hrs creat better at 2.4 from 3.0 metabolic acidosis improved on oral bicarb for blood transfusion- with IV lasix - as Hg dropped to 7.0 cardiology rx and evaluation in progress Objective - Vital Signs/Intake and Output Vital Signs (last 24 hours): Temp Pulse Resp BP Pulse Ox 98.2 F 78 24 138/50 L 94 L 09/12/17 10:35 09/12/17 10:35 09/12/17 10:35 09/12/17 10:35 09/12/17 08:00 Intake and Output: 09/12/17 09/12/17 06:59 18:59 Intake Total 50 0 Output Total 395 110 Balance -345 -110 - Medications Medications: Current Medications Acetaminophen (Tylenol 325mg Tab) 650 mg PO Q6 PRN PRN Reason: Fever >100.4 F Aspirin (Ecotrin) 81 mg PO DAILY [facility] Last Admin: 09/12/17 09:14 Dose: Not Given Dextrose (Dextrose 50% Inj) 0 ml IV STAT PRN; Protocol PRN Reason: Hypoglycemia Protocol Dextrose (Glutose 15) 0 gm PO ONCE PRN; Protocol PRN Reason: Hypoglycemia Protocol Glucagon (Glucagen Diagnostic Kit) 0 mg IM STAT PRN; Protocol PRN Reason: Hypoglycemia Protocol Heparin Sodium (Porcine) (Heparin) 5,000 units SC Q12 [facility] Last Admin: 09/12/17 09:31 Dose: 5,000 units Dextrose (Dextrose 5% In Water 1000 Ml) 1,000 mls @ 0 mls/hr IV .Q0M PRN; Protocol; Per Protocol PRN Reason: Hypoglycemia Protocol Heparin Sodium/Sodium Chloride (Heparin 47654 Units/250ml 1/2 Normal Saline) 25 ,000 units in 250 mls @ 5.715 mls/hr IV .Q24H PRN; Protocol; 12 UNITS/KG/HR PRN Reason: ADJUST RATE PER PROTOCOL Insulin Aspart (Novolog) 0 unit SC ACHS [facility] PRN Reason: Protocol Last Admin: 09/12/17 08:14 Dose: Not Given Ondansetron HCl (Zofran Inj) 4 mg IVP Q6 PRN PRN Reason: Nausea/Vomiting Last Admin: 09/11/17 17:20 Dose: 4 mg Pantoprazole Sodium (Protonix Inj) 40 mg IVP DAILY [facility] Last Admin: 09/12/17 09:32 Dose: 40 mg Rosuvastatin Calcium (Crestor) 2.5 mg PO HS [facility] Last Admin: 09/11/17 21:26 Dose: 2.5 mg Sodium Bicarbonate (Sodium Bicarbonate Tab) 1,300 mg PO TID [facility] Last Admin: 09/12/17 09:14 Dose: Not Given - Labs Labs: 09/12/17 06:20 09/12/17 06:20 PT 10.3 SECONDS (9.7-12.2) 09/10/17 13:52 INR 0.9 09/10/17 13:52 APTT 34 SECONDS (21-34) 09/10/17 13:52 - Constitutional Appears: In Acute Distress, Chronically Ill - Head Exam Head Exam: ATRAUMATIC, NORMAL INSPECTION - Eye Exam Eye Exam: EOMI, Normal appearance - Neck Exam Neck Exam: Normal Inspection. absent: Tenderness - Respiratory Exam Respiratory Exam: Clear to Ausculation Bilateral, Respiratory Distress - Cardiovascular Exam Cardiovascular Exam: REGULAR RHYTHM, +S1 - GI/Abdominal Exam GI & Abdominal Exam: Soft. absent: Tenderness - Extremities Exam Extremities Exam: Normal Inspection. absent: Tenderness - Neurological Exam Neurological Exam: Alert - Skin Skin Exam: Dry, Warm Assessment and Plan (1) BERYL (acute kidney injury) Status: Acute (2) CHF (congestive heart failure) Status: Acute (3) Chronic hemorrhagic anemia Status: Acute (4) Elevated brain natriuretic peptide (BNP) level Status: Acute (5) Elevated troponin I level Status: Acute (6) Non-STEMI (non-ST elevated myocardial infarction) Status: Acute (7) Transient hypotension Status: Acute - Assessment and Plan (Free Text) Plan: Agree with blood transfusion Cardiology workup GI evaluation recommended for drop in H/H check iron stores check renal US serial chemistries lasix for CHF for now
--- NOTE | 2017-09-12 13:04 | VASCLAB ---
PROCEDURE: Lower Extremity Venous Duplex Exam. HISTORY: sob, positive troponin PRIORS: None. TECHNIQUE: Bilateral common femoral, femoral, popliteal and posterior tibial, peroneal and great saphenous veins were evaluated. Flow was assessed with color Doppler, compressibility, assessment of phasic flow and augmentation response. Report prepared by Lio Austin, JEANINE, RVT FINDINGS: RIGHT: 1. Common Femoral Vein: 1.1. Compressibility - Fully compressible: Thrombus - None : Flow - Phasic: Augmentation -Normal: Reflux - None. 2. Femoral Vein: 2.1. Compressibility - Fully compressible: Thrombus - None : Flow - Phasic: Augmentation -Normal: Reflux - None. 3. Popliteal Vein: 3.1. Compressibility - Fully compressible: Thrombus - None : Flow - Phasic: Augmentation -Normal: Reflux - None. 4. Posterior Tibial Vein: 4.1. Compressibility - Fully compressible: Thrombus - None: Flow - Phasic: Augmentation -Normal: Reflux - None. 5. Peroneal Vein: 5.1. Compressibility - Fully compressible: Thrombus - None: Flow - Phasic: Augmentation -Normal: Reflux - None. 6. Great Saphenous Vein: 6.1. Compressibility - Fully compressible: Thrombus - None: Flow - Phasic: Augmentation - Normal: Reflux - None. LEFT: 1. Common Femoral Vein: 1.1. Compressibility - Fully compressible: Thrombus - None: Flow - Phasic: Augmentation -Normal: Reflux - None. 2. Femoral Vein: 2.1. Compressibility - Fully compressible: Thrombus - None: Flow - Phasic: Augmentation -Normal: Reflux - None. 3. Popliteal Vein: 3.1. Compressibility - Fully compressible: Thrombus - None : Flow - Phasic: Augmentation -Normal: Reflux - None. 4. Posterior Tibial Vein: 4.1. Compressibility - Fully compressible: Thrombus - None: Flow - Phasic: Augmentation -Normal: Reflux - None. 5. Peroneal Vein: 5.1. Compressibility - Fully compressible: Thrombus - None: Flow - Phasic: Augmentation -Normal: Reflux - None. 6. Great Saphenous Vein: 6.1. Compressibility - Fully compressible: Thrombus - None: Flow - Phasic: Augmentation - Normal: Reflux - None. OTHER FINDINGS: Right: None significant. Left: None significant. IMPRESSION: Right: No evidence of deep or superficial vein thrombosis of the right lower extremity. Normal valve function noted of the right side. Left: No evidence of deep or superficial vein thrombosis of the left lower extremity. Normal valve function noted of the left side.
[2017-09-12 13:59] LABS: BASO % 0.5 % (0.0-2.0); HEMATOCRIT 28.4 % (34.0-47.0); LYMPH % 13.8 % (20.0-40.0); MEAN CORPUSCULAR HGB CONC 32.1 g/dL (33.0-37.0); MEAN PLATELET VOLUME 9.2 fL (7.2-11.7); MONO # 0.7 K/uL (0.0-0.8); NRBC % 0.1 % (0.0-2.0); RED CELL DISTRIBUTION WIDTH 18.4 % (11.5-14.5); WHITE BLOOD COUNT 7.3 K/uL (4.8-10.8)
[2017-09-12 14:01] LABS: MEAN CELL VOLUME 74.8 fL (81.0-99.0)
--- NOTE | 2017-09-12 14:47 | US ---
PROCEDURE: Ultrasound of the Kidneys HISTORY: acute kidney injury,r/o obstruction COMPARISON: None available. TECHNIQUE: Sonogram of the kidneys. FINDINGS: RIGHT KIDNEY: Measures: 7.9 x 3.25 x 3.93 cm. The right kidney is mildly to moderately echogenic and small in size. No stone, solid mass lesion or hydronephrosis visualized. LEFT KIDNEY: Measures: 8.6 x 4.5 x 3.9 cm. The left kidney is also small in size and echogenic. No stone, solid mass lesion or hydronephrosis visualized. OTHER FINDINGS: There is a Garcia catheter in the bladder. IMPRESSION: Small size echogenic kidneys suggestive of medical renal disease. No evidence of hydronephrosis.
[2017-09-12] MEDS: Ferrous Sulfate 300 mg/5 mL Liq UD PO SCH (17:44)
--- NOTE | 2017-09-12 17:56 | CARD ---
APPROVED REPORT EKG Measurement Heart [id number] <Conclusion> Sinus rhythm with 1st degree AV block Anteroseptal infarct, age undetermined Abnormal ECG
--- NOTE | 2017-09-12 17:57 | CARD ---
APPROVED REPORT EKG Measurement Heart [id number] <Conclusion> Sinus rhythm with 1st degree AV block Otherwise normal ECG
--- NOTE | 2017-09-12 17:57 | CARD ---
APPROVED REPORT EKG Measurement Heart [id number] <Conclusion> Sinus rhythm with 1st degree AV block Anterior infarct, age undetermined Abnormal ECG
--- NOTE | 2017-09-12 18:34 | CARD ---
APPROVED REPORT EXAM: Two-dimensional and M-mode echocardiogram with Doppler and color Doppler. Other Information Quality : GoodRhythm : INDICATION Non STEMI RISK FACTORS Hypertension Diabetes M-Mode DIMENSIONS Left Atrium (MM)3.71 (2.5-4.0cm)IVSd1.09 (0.7-1.1cm) Aortic Root2.46 (2.2-3.7cm)LVDd5.04 (4.0-5.6cm) Aortic Cusp Exc.0.87 (1.5-2.0cm)PWd1.09 (0.7-1.1cm) FS (%) 31 %LVDs3.49 (2.0-3.8cm) LVEF (%)58 (>50%) Aortic Valve AI P 1/2 Gyop500uz Mitral Valve MV E Oyufgmje906.5cm/sMV A Ehinijha433.3cm/sE/A ratio0.8 TDI E/Lateral E'0.0E/Medial E'0.0 Tricuspid Valve TR Peak [id number]/sTR Peak Gr.[id number] LEFT VENTRICLE The left ventricle is normal size. There is normal left ventricular wall thickness. The Ejection Fraction is 50-55%. anterior & apical septum appears hypokinetic.cad. Transmitral Doppler flow pattern is Grade I-abnormal relaxation pattern. RIGHT VENTRICLE The right ventricle is normal size. The right ventricular systolic function is normal. ATRIA The left atrium size is normal. The right atrium size is normal. The interatrial septum is intact with no evidence for an atrial septal defect. AORTIC VALVE aortic valve not well seen. mild ai. MITRAL VALVE The mitral valve is calcified but opens well. Mitral regurgitation is moderate to severe. TRICUSPID VALVE The tricuspid valve is normal in structure. There is moderate tricuspid regurgitation. Right ventricular systolic pressure is estimated at 60 mmHg. There is moderate-severe pulmonary hypertension. PULMONIC VALVE not well seen GREAT VESSELS The aortic root is normal size. The aortic root displays mild sclerocalcific changes of the aortic root. The IVC is normal in size and collapses >50% with inspiration. PERICARDIAL EFFUSION There is no pericardial effusion. <Conclusion> tds. The left ventricle is normal size. The Ejection Fraction is 50-55%. anterior & apical septum appears hypokinetic.cad. Transmitral Doppler flow pattern is Grade I-abnormal relaxation pattern. aortic valve not well seen. mild ai. The mitral valve is calcified but opens well. Mitral regurgitation is moderate to severe. The aortic root is normal size. The aortic root displays mild sclerocalcific changes of the aortic root. There is moderate tricuspid regurgitation. Right ventricular systolic pressure is estimated at 60 mmHg. There is moderate-severe pulmonary hypertension.
--- NOTE | 2017-09-12 18:43 | PN ---
SUBJECTIVE: The patient is still short of breath, on BiPAP. She denies any retrosternal chest pain. No reported ventricular tachycardia on the monitor. PHYSICAL EXAMINATION: VITAL SIGNS: Blood pressure 150/57, heart rate 78, temperature 98.3, respirations 30. HEENT: Pale conjunctivae. CHEST: Bilateral rhonchi. HEART: S1 and S2 regular. ABDOMEN: Soft. EXTREMITIES: No edema. LABORATORY DATA: Today's hemoglobin and hematocrit after packed RBC transfusion is 9.1 and 28.4, white count and platelet count are within normal limits. SMA-7: Sodium 134, potassium 4.7, chloride 102, CO2 of 18, glucose 118, BUN 52, creatinine 2.4. Chest x-ray revealed right lower lobe haziness. Venous Doppler of the lower extremity, no edematous DVT. I did review echocardiograph study which was performed today and that revealed septal and apical hypokinesis, preserved overall ejection fraction, mild mitral insufficiency, and moderate pulmonary hypertension. EKG was performed and it revealed sinus rhythm with first-degree AV block and nonspecific ST-T segment changes. ASSESSMENT: 1. Consider underlying pneumonia. 2. Consider non-ST elevation myocardial infraction. 3. Segmental hypokinesis in both apical and septal consisting with underlying coronary artery disease. 4. Improved . RECOMMENDATIONS: Continue Crestor 2.5 mg once a day, aspirin 81 mg once a day. I will administer stat dose of Lasix 40 mg IV push. I did order chest CT scan without contrast that has not been performed yet. Renal ultrasound was performed and report is still pending. The patient is not a surgical candidate for cardiac catheterization at this time because of ongoing pulmonary status making the patient require BiPAP and also the underlying significant renal insufficiency and possibility of sepsis that has not been completely ruled out. Elvis Dunbar MD
--- NOTE | 2017-09-12 20:41 | CP.PCM.PN ---
Subjective - Date & Time of Evaluation Date of Evaluation: 09/12/17 Time of Evaluation: 11:00 - Subjective Subjective: Hospitalist Progress Note Patient was seen and examined at 11:00 AM 09/12/17 ICU Bed 6 Currently upon FULL ROS: SOB is better and currently on BiPAP NO bowel movement since Tuesday Pain in the hands, knees, and back that is chronic in nature NO other complaints upon FULL ROS - Head Exam Head Exam: NORMAL INSPECTION - Eye Exam Eye Exam: EOMI, PERRL. absent: Nystagmus, Scleral icterus - ENT Exam ENT Exam: Mucous Membranes Moist - Respiratory Exam Respiratory Exam: Bibasilar Inspiratory Crackles. absent: Wheezes, Stridor - Cardiovascular Exam Cardiovascular Exam: REGULAR RHYTHM, +S1, +S2 - GI/Abdominal Exam GI & Abdominal Exam: Soft, Normal Bowel Sounds. absent: Distended, Firm, Guarding, Rigid, Tenderness, Rebound - Extremities Exam Extremities Exam: Normal Capillary Refill. absent: Pedal Edema, Tenderness - Back Exam Back Exam: absent: CVA tenderness (L), CVA tenderness (R) - Neurological Exam Neurological Exam: Alert, Awake, Oriented x3 - Skin Skin Exam: Dry, Intact, Normal Color, Warm Additional comments: Assessment and Plan (1) Acute Renal Failure Assessment & Plan: * Nephrology Dr. Chowdhury is following * BUN/Cr improving * Was on gentle IV hydration but this was d/c this 09/11/17 * Held nephrotoxic medications on admission * Has cui * Monitor intake and output * NO urinary retention as per Bladder Scans * F/U Renal U/S report Status: Acute (2) Elevated Troponin Assessment & Plan: * Cardiology Dr. Dunbar on board-->help appreciated * Elevated Troponin: 0.6460-->0.4850-->0.5510 * Aspirin 325mg PO on admission * On Aspirin 81mg PO daily Status: Acute (3) Diabetes 2 Assessment & Plan: HgBa1c: 7.8 Hypoglycemia protocol Crestor 2.5mg PO qHS Off metformin, glipizide on admission given acute renal failure Aspart sliding scale Status: Chronic (4) Hypotension Assessment & Plan: fluids d/c this morning due to crackles on exam Patient's blood pressure improved overnight off anti-hypertensives Status: Acute (5) Hypertension Assessment & Plan: Off anti-hypertensives (Hydralazine, Metoprolol XL, Amlodipine, Losartan/HCTZ, Lasix, Imdur) because of hypotension IV fluids d/c 09/11/17 Status: Chronic (6) Anemia Assessment & Plan: retic count: 2.2 Iron: 44 TIBC: 220 iron saturation: 20 Ferritin: 31 Feosol 300 mg liquid PO 2x/day Occult blood negative Heparin was discontinued: F/U Heparin Induced Abs HgB dropped to 7.0 and 2 units PRBC ordered 09/12/17 F/U KARON, SPEP, Serum Immunofixation F/U further recommendations from Heme/Onc Dr. Toña Lentz F/U repeat Stool Occult Blood and if positive then will get GI involved Status: Chronic (7) Elevated brain natriuretic peptide (BNP) level Assessment & Plan: Elevated on admission Pending Echocardiogram that was ordered 09/10/17 Status: Acute (8) Polypharmacy Assessment & Plan: Held home medications on admission including diabetic and diuretic medications given acute renal failure Status: Acute (9) Possible Pneumonia Assessment & Plan: CT Chest ordered to R/O Pneumonia Afebrile Bibasilar Crackles on exam F/U Blood and Urine Cultures Status: Suspected (10) Vertigo Assessment & Plan: CT Head: negative on admission Patient has seen previously Dr. 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 She helped to translate in Irish Kareem Wiggins D.O. Objective - Vital Signs/Intake and Output Vital Signs (last 24 hours): Temp Pulse Resp BP Pulse Ox 98.0 F 96 H 20 151/118 H 73 L 09/12/17 16:00 09/12/17 19:00 09/12/17 19:00 09/12/17 18:51 09/12/17 19:00 Intake and Output: 09/12/17 09/13/17 18:59 06:59 Intake Total 595 0 Output Total 420 30 Balance 175 -30 - Medications Medications: Current Medications Acetaminophen (Tylenol 325mg Tab) 650 mg PO Q6 PRN PRN Reason: Fever >100.4 F Aspirin (Ecotrin) 81 mg PO DAILY [facility] Last Admin: 09/12/17 09:14 Dose: Not Given Dextrose (Dextrose 50% Inj) 0 ml IV STAT PRN; Protocol PRN Reason: Hypoglycemia Protocol Dextrose (Glutose 15) 0 gm PO ONCE PRN; Protocol PRN Reason: Hypoglycemia Protocol Ferrous Sulfate (Feosol Liq) 300 mg PO BID [facility] Last Admin: 09/12/17 17:44 Dose: Not Given Glucagon (Glucagen Diagnostic Kit) 0 mg IM STAT PRN; Protocol PRN Reason: Hypoglycemia Protocol Heparin Sodium (Porcine) (Heparin) 5,000 units SC Q8 [facility] Dextrose (Dextrose 5% In Water 1000 Ml) 1,000 mls @ 0 mls/hr IV .Q0M PRN; Protocol; Per Protocol PRN Reason: Hypoglycemia Protocol Insulin Aspart (Novolog) 0 unit SC ACHS [facility] PRN Reason: Protocol Last Admin: 09/12/17 16:57 Dose: Not Given Ondansetron HCl (Zofran Inj) 4 mg IVP Q6 PRN PRN Reason: Nausea/Vomiting Last Admin: 09/11/17 17:20 Dose: 4 mg Pantoprazole Sodium (Protonix Inj) 40 mg IVP DAILY [facility] Last Admin: 09/12/17 09:32 Dose: 40 mg Rosuvastatin Calcium (Crestor) 2.5 mg PO HS [facility] Last Admin: 09/11/17 21:26 Dose: 2.5 mg Sodium Bicarbonate (Sodium Bicarbonate Tab) 1,300 mg PO TID [facility] Last Admin: 09/12/17 17:44 Dose: Not Given - Labs Labs: 09/12/17 13:54 09/12/17 06:20 PT 10.3 SECONDS (9.7-12.2) 09/10/17 13:52 INR 0.9 09/10/17 13:52 APTT 34 SECONDS (21-34) 09/10/17 13:52
[2017-09-12 21:12] LABS: ABG ALLEN TEST POS; ARTERIAL BLOOD GAS MODE BiPAP; ARTERIAL BLOOD HGB O2 SAT 91.1 % (95.0-98.0); CARBOXYHEMOGLOBIN 1.1 % (0.5-1.5); DRAW SITE RBA; HHB 7.7 % (0.0-5.0)
[2017-09-12] MEDS ORDERED: Sodium Bicarbonate (8.4%) 50 Meq Syringe ONE ×2 (21:20→21:26)
[2017-09-12] MEDS: Rosuvastatin Calcium 2.5 mg Tab PO SCH (22:23)
[2017-09-12] MEDS ORDERED: Sodium Bicarbonate (8.4%) 50 Meq Syringe IVP ONE ×3 (22:28→22:31)
[2017-09-12 23:39] LABS: ARTERIAL BLOOD GAS MODE BiPAP; ARTERIAL BLOOD HGB O2 SAT 87.3 % (95.0-98.0); CARBOXYHEMOGLOBIN 1.1 % (0.5-1.5); DRAW SITE RB; HHB 10.9 % (0.0-5.0); METHEMOGLOBIN 0.7 % (0.0-3.0)
[2017-09-13] MEDS ORDERED: Sodium Bicarbonate 8.4% 150 MEQ in Sodium Chloride 0.45% 850 ML IV SCH (00:15)
[2017-09-13 06:28] LABS: BASO # 0.1 K/uL (0.0-0.2); BASO % 0.8 % (0.0-2.0); EOS % 0.1 % (0.0-4.0); HEMATOCRIT 31.2 % (34.0-47.0); LYMPH # 0.7 K/uL (1.0-4.3); LYMPH % 5.1 % (20.0-40.0); MEAN CELL VOLUME 75.7 fL (81.0-99.0); MEAN CORPUSCULAR HEMOGLOBIN 24.2 pg (27.0-31.0); MEAN PLATELET VOLUME 9.6 fL (7.2-11.7); MONO # 1.3 K/uL (0.0-0.8); MONO % 9.5 % (0.0-10.0); PLATELET COUNT 211 K/uL (130-400); RED CELL DISTRIBUTION WIDTH 18.7 % (11.5-14.5); WHITE BLOOD COUNT 13.3 K/uL (4.8-10.8)
[2017-09-13 06:48] LABS: ALB/GLOB RATIO 1.1 (1.0-2.1); BILIRUBIN,TOTAL 0.8 mg/dL (0.2-1.3); CALCIUM 8.3 mg/dl (8.6-10.4); POTASSIUM 4.7 mmol/L (3.6-5.2); TOTAL PROTEIN 7.9 g/dL (6.3-8.3)
[2017-09-13 07:37] LABS: ARTERIAL BLOOD GAS MODE BiPAP; ARTERIAL BLOOD HGB O2 SAT 89.1 % (95.0-98.0); CARBOXYHEMOGLOBIN 1.2 % (0.5-1.5); DRAW SITE RB; HHB 9.3 % (0.0-5.0); METHEMOGLOBIN 0.4 % (0.0-3.0)
[2017-09-13 08:19] LABS: NEUTROPHIL 89 % (50-75); TOTAL CELLS COUNTED 100
[2017-09-13] MEDS: (Novolog) Insulin Aspart, Recombinant 100 u/ml 10 ml vial SC SCH ×3 (08:34→23:13)
[2017-09-13] MEDS: Furosemide 100 MG in Sodium Chloride 0.9% 90 ML IV SCH ×2 (09:35→23:14)
--- NOTE | 2017-09-13 09:46 | CP.PCM.PN ---
Subjective - Date & Time of Evaluation Date of Evaluation: 09/13/17 Time of Evaluation: 09:44 - Subjective Subjective: seen and examined on lasix gtt 10mg/hr s/p blood transfusion uop 780 cc renal US noted echo noted, normal ef w/ severe MR TR and pulm htn discussed w/ family, consent for hd obtained unable to obtain ros due to bipap Objective - Vital Signs/Intake and Output Vital Signs (last 24 hours): Temp Pulse Resp BP Pulse Ox 98.2 F 80 17 146/44 L 84 L 09/13/17 04:00 09/13/17 08:25 09/13/17 05:52 09/13/17 05:52 09/13/17 05:52 Intake and Output: 09/13/17 09/13/17 06:59 18:59 Intake Total 360 Output Total 360 Balance 0 - Medications Medications: Current Medications Acetaminophen (Tylenol 325mg Tab) 650 mg PO Q6 PRN PRN Reason: Fever >100.4 F Aspirin (Ecotrin) 81 mg PO DAILY [facility] Last Admin: 09/12/17 09:14 Dose: Not Given Dextrose (Dextrose 50% Inj) 0 ml IV STAT PRN; Protocol PRN Reason: Hypoglycemia Protocol Dextrose (Glutose 15) 0 gm PO ONCE PRN; Protocol PRN Reason: Hypoglycemia Protocol Ferrous Sulfate (Feosol Liq) 300 mg PO BID [facility] Last Admin: 09/12/17 17:44 Dose: Not Given Glucagon (Glucagen Diagnostic Kit) 0 mg IM STAT PRN; Protocol PRN Reason: Hypoglycemia Protocol Heparin Sodium (Porcine) (Heparin) 5,000 units SC Q8 [facility] Last Admin: 09/13/17 06:16 Dose: 5,000 units Dextrose (Dextrose 5% In Water 1000 Ml) 1,000 mls @ 0 mls/hr IV .Q0M PRN; Protocol; Per Protocol PRN Reason: Hypoglycemia Protocol Furosemide 100 mg/ Sodium (Chloride) 100 mls @ 10 mls/hr IV .Q10H [facility]; 10 MG/HR PRN Reason: Protocol Insulin Aspart (Novolog) 0 unit SC ACHS [facility] PRN Reason: Protocol Last Admin: 09/13/17 08:34 Dose: Not Given Ondansetron HCl (Zofran Inj) 4 mg IVP Q6 PRN PRN Reason: Nausea/Vomiting Last Admin: 09/11/17 17:20 Dose: 4 mg Pantoprazole Sodium (Protonix Inj) 40 mg IVP DAILY [facility] Last Admin: 09/12/17 09:32 Dose: 40 mg Rosuvastatin Calcium (Crestor) 2.5 mg PO HS [facility] Last Admin: 09/12/17 22:23 Dose: 2.5 mg Sodium Bicarbonate (Sodium Bicarbonate Tab) 1,300 mg PO TID [facility] Last Admin: 09/12/17 17:44 Dose: Not Given - Labs Labs: 09/13/17 06:15 09/13/17 06:15 PT 10.3 SECONDS (9.7-12.2) 09/10/17 13:52 INR 0.9 09/10/17 13:52 APTT 34 SECONDS (21-34) 09/10/17 13:52 - Constitutional Appears: In Acute Distress, Cachectic, Chronically Ill - Head Exam Head Exam: NORMAL INSPECTION - Eye Exam Eye Exam: Normal appearance - ENT Exam Additional comments: bipap mask - Respiratory Exam Respiratory Exam: Accessory Muscle Use, Decreased Breath Sounds - Cardiovascular Exam Cardiovascular Exam: Tachycardia, REGULAR RHYTHM - GI/Abdominal Exam GI & Abdominal Exam: Distended, Soft - Back Exam Back Exam: NORMAL INSPECTION - Neurological Exam Neurological Exam: Altered Assessment and Plan (1) BERYL (acute kidney injury) Status: Acute (2) CHF (congestive heart failure) Status: Acute (3) Elevated troponin I level Status: Acute (4) Anemia Status: Chronic (5) Diabetes Status: Chronic - Assessment and Plan (Free Text) Assessment: worsening beryl. lasix gtt to be started. dc bicarb gtt fluid restriction follow spep may need ALGEBRAIST, consent in chart
--- NOTE | 2017-09-13 10:32 | CP.PCM.CON ---
<Iron MILIANRosa Elena K - Last Filed: 09/13/17 18:49> History of Present Illness - History of Present Illness History of Present Illness: Consult note for Dr. Lentz: Patient is an 81 year old female with DM, HTN, HLD who was admitted with complaint of increasing somnolence, BERYL, CHF. Patient reports no prior history of CHF or renal impairment. Patient was initially hypotensive on admission but has been normotensive since admission. Patient's respiratory status has worsened while inpatient and was intubated and started on lasix drip 09/13/17. On admitting blood work, patient's hemoglobin was noted to be 8.9, with prior hemoglobin of 10.0 noted from 07/2016. Patient was transfused two units PRBC on 09/12/17 for hemoglobin of 7.0 with subsequent increase to 9.1 and then 10.0. Hematology was consulted for evaluation of anemia. Pmhx: HTN, DM, HLD, "angina (on meds) Allergies: none Surgeries: lower extremity surgery; could not qualify which ones; patient cannot bend knees at baseline Meds: Amlodipine, Hctz/Losartan, Hydralazine, Lasix, Metformin, Glipizide, Statin Social: lives with daughter; can walk up stairs independently at baseline with cane; cooks for self, feeds self, changes self, bathes self, indepdent in ADL and most IADL at baseline Review of Systems - Review of Systems Systems not reviewed;Unavailable: Acuity of Condition (patient intubated) Past Patient History - Infectious Disease Hx of Infectious Diseases: None - Past Medical History & Family History Past Medical History?: Yes - Past Social History Smoking Status: Never Smoked - CARDIAC Hx Hypercholesterolemia: Yes Hx Hypertension: Yes - PULMONARY Hx Respiratory Disorders: No - HEENT Hx HEENT Problems: No - RENAL Hx Chronic Kidney Disease: No - ENDOCRINE/METABOLIC Hx Endocrine Disorders: Yes Hx Diabetes Mellitus Type 2: Yes - HEMATOLOGICAL/ONCOLOGICAL Hx Anemia: Yes - INTEGUMENTARY Hx Dermatological Problems: No - MUSCULOSKELETAL/RHEUMATOLOGICAL Hx Arthritis: Yes Hx Osteoporosis: Yes - GASTROINTESTINAL Hx Gastrointestinal Disorders: No - GENITOURINARY/GYNECOLOGICAL Hx Genitourinary Disorders: No - PSYCHIATRIC Hx Psychophysiologic Disorder: No Hx Substance Use: No - SURGICAL HISTORY Hx Surgeries: Yes Hx Orthopedic Surgery: Yes (LEFT KNEE) Other/Comment: Right leg - ANESTHESIA Hx Anesthesia: Yes Hx Anesthesia Reactions: No Meds Allergies/Adverse Reactions: Allergies Allergy/AdvReac Type Severity Reaction Status Date / Time No Known Allergies Allergy Verified 09/10/17 13:16 - Medications Medications: Current Medications Acetaminophen (Tylenol 325mg Tab) 650 mg PO Q6 PRN PRN Reason: Fever >100.4 F Aspirin (Ecotrin) 81 mg PO DAILY [facility] Last Admin: 09/12/17 09:14 Dose: Not Given Dextrose (Dextrose 50% Inj) 0 ml IV STAT PRN; Protocol PRN Reason: Hypoglycemia Protocol Dextrose (Glutose 15) 0 gm PO ONCE PRN; Protocol PRN Reason: Hypoglycemia Protocol Ferrous Sulfate (Feosol Liq) 300 mg PO BID [facility] Last Admin: 09/12/17 17:44 Dose: Not Given Glucagon (Glucagen Diagnostic Kit) 0 mg IM STAT PRN; Protocol PRN Reason: Hypoglycemia Protocol Heparin Sodium (Porcine) (Heparin) 5,000 units SC Q8 [facility] Last Admin: 09/13/17 06:16 Dose: 5,000 units Dextrose (Dextrose 5% In Water 1000 Ml) 1,000 mls @ 0 mls/hr IV .Q0M PRN; Protocol; Per Protocol PRN Reason: Hypoglycemia Protocol Furosemide 100 mg/ Sodium (Chloride) 100 mls @ 10 mls/hr IV .Q10H [facility]; 10 MG/HR PRN Reason: Protocol Insulin Aspart (Novolog) 0 unit SC ACHS [facility] PRN Reason: Protocol Last Admin: 09/13/17 08:34 Dose: Not Given Ondansetron HCl (Zofran Inj) 4 mg IVP Q6 PRN PRN Reason: Nausea/Vomiting Last Admin: 09/11/17 17:20 Dose: 4 mg Pantoprazole Sodium (Protonix Inj) 40 mg IVP DAILY [facility] Last Admin: 09/12/17 09:32 Dose: 40 mg Rosuvastatin Calcium (Crestor) 2.5 mg PO HS [facility] Last Admin: 09/12/17 22:23 Dose: 2.5 mg Sodium Bicarbonate (Sodium Bicarbonate Tab) 650 mg PO TID [facility] Physical Exam - Constitutional Appears: Chronically Ill - Head Exam Head Exam: ATRAUMATIC - ENT Exam Additional comments: ET tube in place - Respiratory Exam Respiratory Exam: Decreased Breath Sounds - Cardiovascular Exam Cardiovascular Exam: +S1, +S2 - GI/Abdominal Exam GI & Abdominal Exam: Soft - Extremities Exam Extremities exam: Negative for: pedal edema Additional comments: SCDs in place - Neurological Exam Additional comments: sedated - Skin Skin Exam: Warm Results - Vital Signs Recent Vital Signs: Last Vital Signs Temp 98.2 F 09/13/17 04:00 Pulse 80 09/13/17 08:25 Resp 17 09/13/17 05:52 BP 146/44 L 09/13/17 05:52 Pulse Ox 84 L 09/13/17 05:52 - Labs Result Diagrams: 09/13/17 06:15 09/13/17 17:54 Labs: Laboratory Results - last 24 hr 09/11/17 09/12/17 09/12/17 12:03 07:15 11:28 WBC RBC Hgb Hct MCV MCH MCHC RDW Plt Count MPV Neut % (Auto) Lymph % (Auto) [place] % (Auto) Eos % (Auto) Baso % (Auto) Neut # Lymph # [place] # Eos # Baso # Neutrophils % (Manual) Band Neutrophils % Lymphocytes % (Manual) Monocytes % (Manual) Platelet Estimate Polychromasia Hypochromasia (manual) Anisocytosis (manual) Microcytosis (manual) Target Cells Tear Drop Cells Ovalocytes Haptoglobin 276 H Puncture Site pCO2 pO2 HCO3 ABG pH ABG Total CO2 ABG O2 Saturation ABG Base Excess ABG Hemoglobin ABG Carboxyhemoglobin POC ABG HHb (Measured) ABG Methemoglobin Guy Test A-a O2 Difference Respiratory Index Hgb O2 Saturation Vent Mode FiO2 Inspiratory BiPAP Expiratory BiPAP Crit Value Called To Crit Value Called By Crit Value Read Back Blood Gas Notified Time Sodium Potassium Chloride Carbon Dioxide Anion Gap BUN Creatinine Est GFR ( Amer) Est GFR (Non-Af Amer) POC Glucose (mg/dL) 163 H Random Glucose Calcium % Saturation Ferritin Total Bilirubin AST ALT Alkaline Phosphatase Total Protein Albumin Globulin Albumin/Globulin Ratio Blood Type O POSITIVE Antibody Screen Negative 09/12/17 09/12/17 09/12/17 13:54 13:54 13:54 WBC 7.3 RBC 3.80 Hgb 9.1 L D Hct 28.4 L MCV 74.8 L D MCH 24.0 L MCHC 32.1 L RDW 18.4 H Plt Count 200 MPV 9.2 Neut % (Auto) 76.7 H Lymph % (Auto) 13.8 L [place] % (Auto) 9.0 Eos % (Auto) 0.0 Baso % (Auto) 0.5 Neut # 5.6 Lymph # 1.0 [place] # 0.7 Eos # 0.0 Baso # 0.0 Neutrophils % (Manual) Band Neutrophils % Lymphocytes % (Manual) Monocytes % (Manual) Platelet Estimate Polychromasia Hypochromasia (manual) Anisocytosis (manual) Microcytosis (manual) Target Cells Tear Drop Cells Ovalocytes Haptoglobin Puncture Site pCO2 pO2 HCO3 ABG pH ABG Total CO2 ABG O2 Saturation ABG Base Excess ABG Hemoglobin ABG Carboxyhemoglobin POC ABG HHb (Measured) ABG Methemoglobin Guy Test A-a O2 Difference Respiratory Index Hgb O2 Saturation Vent Mode FiO2 Inspiratory BiPAP Expiratory BiPAP Crit Value Called To Crit Value Called By Crit Value Read Back Blood Gas Notified Time Sodium Potassium Chloride Carbon Dioxide Anion Gap BUN Creatinine Est GFR ( Amer) Est GFR (Non-Af Amer) POC Glucose (mg/dL) Random Glucose Calcium % Saturation 39 Ferritin 41.5 Total Bilirubin AST ALT Alkaline Phosphatase Total Protein Albumin Globulin Albumin/Globulin Ratio Blood Type Antibody Screen 09/12/17 09/12/17 09/12/17 16:17 21:00 21:13 WBC RBC Hgb Hct MCV MCH MCHC RDW Plt Count MPV Neut % (Auto) Lymph % (Auto) [place] % (Auto) Eos % (Auto) Baso % (Auto) Neut # Lymph # [place] # Eos # Baso # Neutrophils % (Manual) Band Neutrophils % Lymphocytes % (Manual) Monocytes % (Manual) Platelet Estimate Polychromasia Hypochromasia (manual) Anisocytosis (manual) Microcytosis (manual) Target Cells Tear Drop Cells Ovalocytes Haptoglobin Puncture Site Rba pCO2 39 pO2 65 L HCO3 11.6 L ABG pH 7.09 L* ABG Total CO2 13.0 L ABG O2 Saturation 92.2 L ABG Base Excess -17.0 L ABG Hemoglobin 9.3 L ABG Carboxyhemoglobin 1.1 POC ABG HHb (Measured) 7.7 H ABG Methemoglobin 0.0 Guy Test Pos A-a O2 Difference 171.0 Respiratory Index 2.6 Hgb O2 Saturation 91.1 L Vent Mode Bipap FiO2 40.0 Inspiratory BiPAP 12 Expiratory BiPAP 5 Crit Value Called To Jannette johansen Crit Value Called By Brigitte Crit Value Read Back Y Blood Gas Notified Time 2111 Sodium Potassium Chloride Carbon Dioxide Anion Gap BUN Creatinine Est GFR ( Amer) Est GFR (Non-Af Amer) POC Glucose (mg/dL) 191 H 260 H Random Glucose Calcium % Saturation Ferritin Total Bilirubin AST ALT Alkaline Phosphatase Total Protein Albumin Globulin Albumin/Globulin Ratio Blood Type Antibody Screen 09/12/17 09/13/17 09/13/17 23:36 06:15 06:15 WBC 13.3 H D RBC 4.12 Hgb 10.0 L Hct 31.2 L MCV 75.7 L MCH 24.2 L MCHC 32.0 L RDW 18.7 H Plt Count 211 MPV 9.6 Neut % (Auto) 84.5 H Lymph % (Auto) 5.1 L [place] % (Auto) 9.5 Eos % (Auto) 0.1 Baso % (Auto) 0.8 Neut # 11.2 H Lymph # 0.7 L [place] # 1.3 H Eos # 0.0 Baso # 0.1 Neutrophils % (Manual) 89 H Band Neutrophils % 3 H Lymphocytes % (Manual) 4 L Monocytes % (Manual) 4 Platelet Estimate Normal Polychromasia Slight Hypochromasia (manual) Slight Anisocytosis (manual) Slight Microcytosis (manual) Slight Target Cells Slight Tear Drop Cells Slight Ovalocytes Slight Haptoglobin Puncture Site Rb pCO2 44 pO2 53 L HCO3 17.6 L ABG pH 7.22 L ABG Total CO2 19.4 L ABG O2 Saturation 88.9 L ABG Base Excess -9.2 L ABG Hemoglobin 9.5 L ABG Carboxyhemoglobin 1.1 POC ABG HHb (Measured) 10.9 H ABG Methemoglobin 0.7 Guy Test Na A-a O2 Difference 177.0 Respiratory Index 3.3 Hgb O2 Saturation 87.3 L Vent Mode Bipap FiO2 40.0 Inspiratory BiPAP 16 Expiratory BiPAP 8 Crit Value Called To Crit Value Called By Crit Value Read Back Blood Gas Notified Time Sodium 144 Potassium 4.7 Chloride 100 Carbon Dioxide 20 L Anion Gap 29 H BUN 63 H Creatinine 3.0 H Est GFR ( Amer) 18 Est GFR (Non-Af Amer) 15 POC Glucose (mg/dL) Random Glucose 280 H Calcium 8.3 L % Saturation Ferritin Total Bilirubin 0.8 AST 181 H D ALT 158 H D Alkaline Phosphatase 72 Total Protein 7.9 Albumin 4.2 Globulin 3.7 Albumin/Globulin Ratio 1.1 Blood Type Antibody Screen 09/13/17 09/13/17 07:34 07:38 WBC RBC Hgb Hct MCV MCH MCHC RDW Plt Count MPV Neut % (Auto) Lymph % (Auto) [place] % (Auto) Eos % (Auto) Baso % (Auto) Neut # Lymph # [place] # Eos # Baso # Neutrophils % (Manual) Band Neutrophils % Lymphocytes % (Manual) Monocytes % (Manual) Platelet Estimate Polychromasia Hypochromasia (manual) Anisocytosis (manual) Microcytosis (manual) Target Cells Tear Drop Cells Ovalocytes Haptoglobin Puncture Site Rb pCO2 49 H pO2 56 L HCO3 19.5 L ABG pH 7.23 L ABG Total CO2 22.0 ABG O2 Saturation 90.5 L ABG Base Excess -6.8 L ABG Hemoglobin 9.3 L ABG Carboxyhemoglobin 1.2 POC ABG HHb (Measured) 9.3 H ABG Methemoglobin 0.4 Guy Test Na A-a O2 Difference 311.0 Respiratory Index 5.6 Hgb O2 Saturation 89.1 L Vent Mode Bipap FiO2 60.0 Inspiratory BiPAP 18 Expiratory BiPAP 8 Crit Value Called To Crit Value Called By Crit Value Read Back Blood Gas Notified Time Sodium Potassium Chloride Carbon Dioxide Anion Gap BUN Creatinine Est GFR ( Amer) Est GFR (Non-Af Amer) POC Glucose (mg/dL) 264 H Random Glucose Calcium % Saturation Ferritin Total Bilirubin AST ALT Alkaline Phosphatase Total Protein Albumin Globulin Albumin/Globulin Ratio Blood Type Antibody Screen Assessment & Plan - Assessment and Plan (Free Text) Assessment: 81 year old female with new diagnosis of CHF with vascular congestion now intubated, anemia, BERYL Anemia reticulocyte index 0.63 with hypoproliferative erythroid response light chain ratio normal likely borderline iron deficiency anemia with contribution from renal disease hold iron supplementation transfusion support prn Plan as per Dr. Lentz <Neil Lentz - Last Filed: 09/13/17 20:58> Meds - Medications Medications: Current Medications Acetaminophen (Tylenol 325mg Tab) 650 mg PO Q6 PRN PRN Reason: Fever >100.4 F Aspirin (Ecotrin) 81 mg PO DAILY [facility] Last Admin: 09/13/17 13:22 Dose: Not Given Dextrose (Dextrose 50% Inj) 0 ml IV STAT PRN; Protocol PRN Reason: Hypoglycemia Protocol Dextrose (Glutose 15) 0 gm PO ONCE PRN; Protocol PRN Reason: Hypoglycemia Protocol Ferrous Sulfate (Feosol Liq) 300 mg PO BID [facility] Last Admin: 09/13/17 17:27 Dose: Not Given Glucagon (Glucagen Diagnostic Kit) 0 mg IM STAT PRN; Protocol PRN Reason: Hypoglycemia Protocol Heparin Sodium (Porcine) (Heparin) 5,000 units SC Q8 [facility] Last Admin: 09/13/17 06:16 Dose: 5,000 units Dextrose (Dextrose 5% In Water 1000 Ml) 1,000 mls @ 0 mls/hr IV .Q0M PRN; Protocol; Per Protocol PRN Reason: Hypoglycemia Protocol Furosemide 100 mg/ Sodium (Chloride) 100 mls @ 10 mls/hr IV .Q10H [facility]; 10 MG/HR PRN Reason: Protocol Last Admin: 09/13/17 09:35 Dose: 10 mls/hr Propofol (Diprivan) 1,000 mg in 100 mls @ 1.429 mls/hr IV .Q24H PRN; Protocol; 5 MCG/KG/MIN PRN Reason: TITRATE PER MD ORDER Last Admin: 09/13/17 12:15 Dose: 5 mcg/kg/min, 1.429 mls/hr Insulin Aspart (Novolog) 0 unit SC ACHS [facility] PRN Reason: Protocol Last Admin: 09/13/17 13:14 Dose: Not Given Ondansetron HCl (Zofran Inj) 4 mg IVP Q6 PRN PRN Reason: Nausea/Vomiting Last Admin: 09/13/17 11:01 Dose: 4 mg Pantoprazole Sodium (Protonix Inj) 40 mg IVP DAILY [facility] Last Admin: 09/13/17 10:00 Dose: 40 mg Rosuvastatin Calcium (Crestor) 2.5 mg PO HS [facility] Last Admin: 09/12/17 22:23 Dose: 2.5 mg Sodium Bicarbonate (Sodium Bicarbonate Tab) 650 mg PO TID [facility] Last Admin: 09/13/17 11:01 Dose: 650 mg Results - Vital Signs Recent Vital Signs: Last Vital Signs Temp 98 F 09/13/17 20:00 Pulse 86 09/13/17 20:00 Resp 18 09/13/17 20:00 BP 119/47 L 09/13/17 19:51 Pulse Ox 97 09/13/17 20:00 - Labs Result Diagrams: 09/13/17 06:15 09/13/17 17:54 Labs: Laboratory Results - last 24 hr 09/11/17 09/11/17 09/12/17 12:03 18:39 21:00 WBC RBC Hgb Hct MCV MCH MCHC RDW Plt Count MPV Neut % (Auto) Lymph % (Auto) [place] % (Auto) Eos % (Auto) Baso % (Auto) Neut # Lymph # [place] # Eos # Baso # Neutrophils % (Manual) Band Neutrophils % Lymphocytes % (Manual) Monocytes % (Manual) Platelet Estimate Polychromasia Hypochromasia (manual) Anisocytosis (manual) Microcytosis (manual) Target Cells Tear Drop Cells Ovalocytes Haptoglobin 276 H Puncture Site Rba pCO2 39 pO2 65 L HCO3 11.6 L ABG pH 7.09 L* ABG Total CO2 13.0 L ABG O2 Saturation 92.2 L ABG Base Excess -17.0 L ABG Hemoglobin 9.3 L ABG Carboxyhemoglobin 1.1 POC ABG HHb (Measured) 7.7 H ABG Methemoglobin 0.0 Guy Test Pos A-a O2 Difference 171.0 Respiratory Index 2.6 Hgb O2 Saturation 91.1 L Vent Mode Bipap Mechanical Rate FiO2 40.0 Tidal Volume PEEP Inspiratory BiPAP 12 Expiratory BiPAP 5 Crit Value Called To Jannette johansen Crit Value Called By Brigitte Crit Value Read Back Y Blood Gas Notified Time 2111 Sodium Potassium Chloride Carbon Dioxide Anion Gap BUN Creatinine Est GFR ( Amer) Est GFR (Non-Af Amer) POC Glucose (mg/dL) Random Glucose Calcium Total Bilirubin AST ALT Alkaline Phosphatase Total Protein Albumin Globulin Albumin/Globulin Ratio Procalcitonin Free Bone Gap Light Chains 55.1 H Free Lambda Light Chain 34.7 H Free Bone Gap/Lambda Ratio 1.59 09/12/17 09/12/17 09/13/17 21:13 23:36 06:15 WBC 13.3 H D RBC 4.12 Hgb 10.0 L Hct 31.2 L MCV 75.7 L MCH 24.2 L MCHC 32.0 L RDW 18.7 H Plt Count 211 MPV 9.6 Neut % (Auto) 84.5 H Lymph % (Auto) 5.1 L [place] % (Auto) 9.5 Eos % (Auto) 0.1 Baso % (Auto) 0.8 Neut # 11.2 H Lymph # 0.7 L [place] # 1.3 H Eos # 0.0 Baso # 0.1 Neutrophils % (Manual) 89 H Band Neutrophils % 3 H Lymphocytes % (Manual) 4 L Monocytes % (Manual) 4 Platelet Estimate Normal Polychromasia Slight Hypochromasia (manual) Slight Anisocytosis (manual) Slight Microcytosis (manual) Slight Target Cells Slight Tear Drop Cells Slight Ovalocytes Slight Haptoglobin Puncture Site Rb pCO2 44 pO2 53 L HCO3 17.6 L ABG pH 7.22 L ABG Total CO2 19.4 L ABG O2 Saturation 88.9 L ABG Base Excess -9.2 L ABG Hemoglobin 9.5 L ABG Carboxyhemoglobin 1.1 POC ABG HHb (Measured) 10.9 H ABG Methemoglobin 0.7 Guy Test Na A-a O2 Difference 177.0 Respiratory Index 3.3 Hgb O2 Saturation 87.3 L Vent Mode Bipap Mechanical Rate FiO2 40.0 Tidal Volume PEEP Inspiratory BiPAP 16 Expiratory BiPAP 8 Crit Value Called To Crit Value Called By Crit Value Read Back Blood Gas Notified Time Sodium Potassium Chloride Carbon Dioxide Anion Gap BUN Creatinine Est GFR ( Amer) Est GFR (Non-Af Amer) POC Glucose (mg/dL) 260 H Random Glucose Calcium Total Bilirubin AST ALT Alkaline Phosphatase Total Protein Albumin Globulin Albumin/Globulin Ratio Procalcitonin Free Bone Gap Light Chains Free Lambda Light Chain Free Bone Gap/Lambda Ratio 09/13/17 09/13/17 09/13/17 06:15 07:34 07:38 WBC RBC Hgb Hct MCV MCH MCHC RDW Plt Count MPV Neut % (Auto) Lymph % (Auto) [place] % (Auto) Eos % (Auto) Baso % (Auto) Neut # Lymph # [place] # Eos # Baso # Neutrophils % (Manual) Band Neutrophils % Lymphocytes % (Manual) Monocytes % (Manual) Platelet Estimate Polychromasia Hypochromasia (manual) Anisocytosis (manual) Microcytosis (manual) Target Cells Tear Drop Cells Ovalocytes Haptoglobin Puncture Site Rb pCO2 49 H pO2 56 L HCO3 19.5 L ABG pH 7.23 L ABG Total CO2 22.0 ABG O2 Saturation 90.5 L ABG Base Excess -6.8 L ABG Hemoglobin 9.3 L ABG Carboxyhemoglobin 1.2 POC ABG HHb (Measured) 9.3 H ABG Methemoglobin 0.4 Guy Test Na A-a O2 Difference 311.0 Respiratory Index 5.6 Hgb O2 Saturation 89.1 L Vent Mode Bipap Mechanical Rate FiO2 60.0 Tidal Volume PEEP Inspiratory BiPAP 18 Expiratory BiPAP 8 Crit Value Called To Crit Value Called By Crit Value Read Back Blood Gas Notified Time Sodium 144 Potassium 4.7 Chloride 100 Carbon Dioxide 20 L Anion Gap 29 H BUN 63 H Creatinine 3.0 H Est GFR ( Amer) 18 Est GFR (Non-Af Amer) 15 POC Glucose (mg/dL) 264 H Random Glucose 280 H Calcium 8.3 L Total Bilirubin 0.8 AST 181 H D ALT 158 H D Alkaline Phosphatase 72 Total Protein 7.9 Albumin 4.2 Globulin 3.7 Albumin/Globulin Ratio 1.1 Procalcitonin Free Bone Gap Light Chains Free Lambda Light Chain Free Bone Gap/Lambda Ratio 09/13/17 09/13/17 09/13/17 10:58 11:39 13:11 WBC RBC Hgb Hct MCV MCH MCHC RDW Plt Count MPV Neut % (Auto) Lymph % (Auto) [place] % (Auto) Eos % (Auto) Baso % (Auto) Neut # Lymph # [place] # Eos # Baso # Neutrophils % (Manual) Band Neutrophils % Lymphocytes % (Manual) Monocytes % (Manual) Platelet Estimate Polychromasia Hypochromasia (manual) Anisocytosis (manual) Microcytosis (manual) Target Cells Tear Drop Cells Ovalocytes Haptoglobin Puncture Site Lb pCO2 39 pO2 185 H HCO3 21.5 ABG pH 7.34 L ABG Total CO2 22.2 ABG O2 Saturation 97.4 ABG Base Excess -4.4 L ABG Hemoglobin 8.5 L ABG Carboxyhemoglobin 0.2 L POC ABG HHb (Measured) 2.6 ABG Methemoglobin 0.6 Guy Test Na A-a O2 Difference 479.0 Respiratory Index 2.6 Hgb O2 Saturation 96.6 Vent Mode Prvc Mechanical Rate 18 FiO2 100.0 Tidal Volume 500 PEEP 5 Inspiratory BiPAP Expiratory BiPAP Crit Value Called To Crit Value Called By Crit Value Read Back Blood Gas Notified Time Sodium Potassium Chloride Carbon Dioxide Anion Gap BUN Creatinine Est GFR ( Amer) Est GFR (Non-Af Amer) POC Glucose (mg/dL) 219 H Random Glucose Calcium Total Bilirubin AST ALT Alkaline Phosphatase Total Protein Albumin Globulin Albumin/Globulin Ratio Procalcitonin 0.41 Free Bone Gap Light Chains Free Lambda Light Chain Free Bone Gap/Lambda Ratio 09/13/17 09/13/17 16:23 17:54 WBC RBC Hgb Hct MCV MCH MCHC RDW Plt Count MPV Neut % (Auto) Lymph % (Auto) [place] % (Auto) Eos % (Auto) Baso % (Auto) Neut # Lymph # [place] # Eos # Baso # Neutrophils % (Manual) Band Neutrophils % Lymphocytes % (Manual) Monocytes % (Manual) Platelet Estimate Polychromasia Hypochromasia (manual) Anisocytosis (manual) Microcytosis (manual) Target Cells Tear Drop Cells Ovalocytes Haptoglobin Puncture Site pCO2 pO2 HCO3 ABG pH ABG Total CO2 ABG O2 Saturation ABG Base Excess ABG Hemoglobin ABG Carboxyhemoglobin POC ABG HHb (Measured) ABG Methemoglobin Guy Test A-a O2 Difference Respiratory Index Hgb O2 Saturation Vent Mode Mechanical Rate FiO2 Tidal Volume PEEP Inspiratory BiPAP Expiratory BiPAP Crit Value Called To Crit Value Called By Crit Value Read Back Blood Gas Notified Time Sodium 143 Potassium 4.5 Chloride 98 Carbon Dioxide 20 L Anion Gap 29 H BUN 64 H Creatinine 3.1 H Est GFR ( Amer) 17 Est GFR (Non-Af Amer) 14 POC Glucose (mg/dL) 266 H Random Glucose 223 H Calcium 8.0 L Total Bilirubin 1.0 AST 110 H D ALT 128 H Alkaline Phosphatase 67 Total Protein 6.6 Albumin 4.0 Globulin 2.6 Albumin/Globulin Ratio 1.5 Procalcitonin Free Bone Gap Light Chains Free Lambda Light Chain Free Bone Gap/Lambda Ratio Assessment & Plan - Assessment and Plan (Free Text) Assessment: Pt seen and examined, agree with Dr. Perdue's consult note. 81 year old female with CHF, currently intubated with vascular congestion, with anemia, BERYL. W/u consistent with a hypoproliferative erythroid response from iron deficiency and element of anemia of renal failure. S/P PRBC transfusion with improvement in H/H. Will consider iron supplementation if cleared by primary team of no infection. Thank you for this interesting consult.
--- NOTE | 2017-09-13 10:57 | RAD ---
HISTORY: pulmonary edema COMPARISON: Chest radiograph dated 09/12/2017. FINDINGS: LUNGS: Worsening pulmonary vascular congestion PLEURA: Small bilateral pleural effusions. No pneumothorax apparent. CARDIOVASCULAR: Cardiomediastinal silhouette stably prominent. OSSEOUS STRUCTURES: Unchanged. VISUALIZED UPPER ABDOMEN: Normal. OTHER FINDINGS: None. IMPRESSION: Worsening pulmonary vascular congestion. Small bilateral pleural effusions
[2017-09-13] MEDS: Ferrous Sulfate 300 mg/5 mL Liq UD PO SCH ×2 (11:00→17:27)
--- NOTE | 2017-09-13 11:39 | CP.CCUPN ---
<Bertin Wheat - Last Filed: 09/13/17 12:18> CCU Subjective - Physician Review Subjective (Free Text): PGY1 ICU Progress Note for Dr. Blair Patient seen and examined this morning at bedside. Patient resting comfortably in bed while on BiPAP. Patient is alert and shakes her head no when asked if she has any complaints at this time. CCU Objective - Vital Signs / Intake & Output Vital Signs (Last 4 hours): Vital Signs Pulse BP 09/13/17 09:35 150/62 09/13/17 08:25 80 Intake and Output (Last 8hrs): Intake & Output 09/12/17 09/13/17 09/13/17 22:59 06:59 14:59 Intake Total 0 360 Output Total 210 240 Balance -210 120 Intake: Intake, IV Amount 0 360 Left Antecubital 0 360 Left Forearm 0 Blood Product 0 Output: Urine 210 240 Urethral (Garcia) 210 240 Stool 0 Emesis 0 - Physical Exam Head: Positive for: Atraumatic, Normocephalic Extroacular Muscles: Positive for: EOMI Mouth: Positive for: Other (on BiPAP) Respiratory/Chest: Positive for: Clear to Auscultation, Respiratory Distress. Negative for: Accessory Muscle Use Cardiovascular: Positive for: Regular Rate and Rhythm, Normal S1, S2 Abdomen: Negative for: Tenderness, Distention Lower Extremity: Positive for: Other (SCDs in place). Negative for: CALF TENDERNESS Skin: Positive for: Warm, Dry Psychiatric: Positive for: Alert - Medications Active Medications: Active Medications Generic Name Dose Route Start Last Admin Trade Name Freq PRN Reason Stop Dose Admin Acetaminophen 650 mg 09/10/17 17:00 Tylenol 325mg Tab PO Q6 PRN Fever >100.4 F Aspirin 81 mg 09/11/17 10:00 09/12/17 09:14 Ecotrin PO Not Given DAILY GLADYS Dextrose 0 ml 09/10/17 17:21 Dextrose 50% Inj IV STAT PRN Hypoglycemia Protocol Protocol Dextrose 0 gm 09/10/17 17:21 Glutose 15 PO ONCE PRN Hypoglycemia Protocol Protocol Ferrous Sulfate 300 mg 09/12/17 18:00 09/13/17 11:00 Feosol Liq PO 300 mg BID GLADYS Administration Glucagon 0 mg 09/10/17 17:21 Glucagen Diagnostic Kit IM STAT PRN Hypoglycemia Protocol Protocol Heparin Sodium (Porcine) 5,000 units 09/12/17 22:00 09/13/17 06:16 Heparin SC 5,000 units Q8 GLADYS Administration Dextrose 1,000 mls @ 0 mls/hr 09/10/17 17:21 Dextrose 5% In Water 1000 Ml IV .Q0M PRN Hypoglycemia Protocol Protocol Per Protocol Furosemide 100 mg/ Sodium 100 mls @ 10 mls/hr 09/13/17 10:00 09/13/17 09:35 Chloride IV 10 mls/hr .Q10H GLADYS Administration Protocol 10 MG/HR Insulin Aspart 0 unit 09/10/17 22:00 09/13/17 08:34 Novolog SC Not Given ACHS GLADYS Protocol Ondansetron HCl 4 mg 09/10/17 17:00 09/13/17 11:01 Zofran Inj IVP 4 mg Q6 PRN Administration Nausea/Vomiting Pantoprazole Sodium 40 mg 09/11/17 10:00 09/13/17 10:00 Protonix Inj IVP 40 mg DAILY GLADYS Administration Rosuvastatin Calcium 2.5 mg 09/10/17 22:00 09/12/17 22:23 Crestor PO 2.5 mg HS GLADYS Administration Sodium Bicarbonate 650 mg 09/13/17 10:00 09/13/17 11:01 Sodium Bicarbonate Tab PO 650 mg TID GLADYS Administration - Patient Studies Lab Studies: Microbiology Studies 09/10/17 15:00 Blood Culture - Preliminary Blood NO GROWTH AFTER 48 HOURS 09/10/17 13:45 Blood Culture - Preliminary Blood NO GROWTH AFTER 48 HOURS 09/10/17 13:36 Urine Culture - Final Urine 10-50,000 CFU/ML. MULTIPLE SPECIES. PROBABLE CONTAMINATION. Lab Studies 09/13/17 09/13/17 09/13/17 Range/Units 07:38 07:34 06:15 WBC (4.8-10.8) K/uL RBC (3.80-5.20) Mil/uL Hgb (11.0-16.0) g/dL Hct (34.0-47.0) % MCV (81.0-99.0) fL MCH (27.0-31.0) pg MCHC (33.0-37.0) g/dL RDW (11.5-14.5) % Plt Count (130-400) K/uL MPV (7.2-11.7) fL Neut % (Auto) (50.0-75.0) % Lymph % (Auto) (20.0-40.0) % Pitt % (Auto) (0.0-10.0) % Eos % (Auto) (0.0-4.0) % Baso % (Auto) (0.0-2.0) % Neut # (1.8-7.0) K/uL Lymph # (1.0-4.3) K/uL Pitt # (0.0-0.8) K/uL Eos # (0.0-0.7) K/uL Baso # (0.0-0.2) K/uL Neutrophils % (Manual) (50-75) % Band Neutrophils % (0-2) % Lymphocytes % (Manual) (20-40) % Monocytes % (Manual) (0-10) % Platelet Estimate (NORMAL) Polychromasia Hypochromasia (manual) Anisocytosis (manual) Microcytosis (manual) Target Cells Tear Drop Cells Ovalocytes Haptoglobin (43-212) mg/dL Puncture Site Rb pCO2 49 H (35-45) mm/Hg pO2 56 L (80-100) mm/Hg HCO3 19.5 L (21-28) mmol/L ABG pH 7.23 L (7.35-7.45) ABG Total CO2 22.0 (22-28) mmol/L ABG O2 Saturation 90.5 L (95-98) % ABG Base Excess -6.8 L (-2.0-3.0) mmol/L ABG Hemoglobin 9.3 L (11.7-17.4) g/dL ABG Carboxyhemoglobin 1.2 (0.5-1.5) % POC ABG HHb (Measured) 9.3 H (0.0-5.0) % ABG Methemoglobin 0.4 (0.0-3.0) % Guy Test Na A-a O2 Difference 311.0 mm/Hg Respiratory Index 5.6 Hgb O2 Saturation 89.1 L (95.0-98.0) % Vent Mode Bipap FiO2 60.0 % Inspiratory BiPAP 18 Expiratory BiPAP 8 Crit Value Called To Crit Value Called By Crit Value Read Back Blood Gas Notified Time Sodium 144 (132-148) mmol/L Potassium 4.7 (3.6-5.2) mmol/L Chloride 100 (98-107) mmol/L Carbon Dioxide 20 L (22-30) mmol/L Anion Gap 29 H (10-20) BUN 63 H (7-17) mg/dL Creatinine 3.0 H (0.7-1.2) mg/dL Est GFR ( Amer) 18 Est GFR (Non-Af Amer) 15 POC Glucose (mg/dL) 264 H (65-110) mg/dL Random Glucose 280 H (65-105) mg/dL Calcium 8.3 L (8.6-10.4) mg/dl % Saturation (20-55) Ferritin ng/mL Total Bilirubin 0.8 (0.2-1.3) mg/dL AST 181 H D (14-36) U/L ALT 158 H D (9-52) U/L Alkaline Phosphatase 72 (38-126) U/L Total Protein 7.9 (6.3-8.3) g/dL Albumin 4.2 (3.5-5.0) g/dL Globulin 3.7 (2.2-3.9) gm/dL Albumin/Globulin Ratio 1.1 (1.0-2.1) 09/13/17 09/12/17 09/12/17 Range/Units 06:15 23:36 21:13 WBC 13.3 H D (4.8-10.8) K/uL RBC 4.12 (3.80-5.20) Mil/uL Hgb 10.0 L (11.0-16.0) g/dL Hct 31.2 L (34.0-47.0) % MCV 75.7 L (81.0-99.0) fL MCH 24.2 L (27.0-31.0) pg MCHC 32.0 L (33.0-37.0) g/dL RDW 18.7 H (11.5-14.5) % Plt Count 211 (130-400) K/uL MPV 9.6 (7.2-11.7) fL Neut % (Auto) 84.5 H (50.0-75.0) % Lymph % (Auto) 5.1 L (20.0-40.0) % Pitt % (Auto) 9.5 (0.0-10.0) % Eos % (Auto) 0.1 (0.0-4.0) % Baso % (Auto) 0.8 (0.0-2.0) % Neut # 11.2 H (1.8-7.0) K/uL Lymph # 0.7 L (1.0-4.3) K/uL Pitt # 1.3 H (0.0-0.8) K/uL Eos # 0.0 (0.0-0.7) K/uL Baso # 0.1 (0.0-0.2) K/uL Neutrophils % (Manual) 89 H (50-75) % Band Neutrophils % 3 H (0-2) % Lymphocytes % (Manual) 4 L (20-40) % Monocytes % (Manual) 4 (0-10) % Platelet Estimate Normal (NORMAL) Polychromasia Slight Hypochromasia (manual) Slight Anisocytosis (manual) Slight Microcytosis (manual) Slight Target Cells Slight Tear Drop Cells Slight Ovalocytes Slight Haptoglobin (43-212) mg/dL Puncture Site Rb pCO2 44 (35-45) mm/Hg pO2 53 L (80-100) mm/Hg HCO3 17.6 L (21-28) mmol/L ABG pH 7.22 L (7.35-7.45) ABG Total CO2 19.4 L (22-28) mmol/L ABG O2 Saturation 88.9 L (95-98) % ABG Base Excess -9.2 L (-2.0-3.0) mmol/L ABG Hemoglobin 9.5 L (11.7-17.4) g/dL ABG Carboxyhemoglobin 1.1 (0.5-1.5) % POC ABG HHb (Measured) 10.9 H (0.0-5.0) % ABG Methemoglobin 0.7 (0.0-3.0) % Guy Test Na A-a O2 Difference 177.0 mm/Hg Respiratory Index 3.3 Hgb O2 Saturation 87.3 L (95.0-98.0) % Vent Mode Bipap FiO2 40.0 % Inspiratory BiPAP 16 Expiratory BiPAP 8 Crit Value Called To Crit Value Called By Crit Value Read Back Blood Gas Notified Time Sodium (132-148) mmol/L Potassium (3.6-5.2) mmol/L Chloride (98-107) mmol/L Carbon Dioxide (22-30) mmol/L Anion Gap (10-20) BUN (7-17) mg/dL Creatinine (0.7-1.2) mg/dL Est GFR ( Amer) Est GFR (Non-Af Amer) POC Glucose (mg/dL) 260 H (65-110) mg/dL Random Glucose (65-105) mg/dL Calcium (8.6-10.4) mg/dl % Saturation (20-55) Ferritin ng/mL Total Bilirubin (0.2-1.3) mg/dL AST (14-36) U/L ALT (9-52) U/L Alkaline Phosphatase (38-126) U/L Total Protein (6.3-8.3) g/dL Albumin (3.5-5.0) g/dL Globulin (2.2-3.9) gm/dL Albumin/Globulin Ratio (1.0-2.1) 09/12/17 09/12/17 09/12/17 Range/Units 21:00 16:17 13:54 WBC 7.3 (4.8-10.8) K/uL RBC 3.80 (3.80-5.20) Mil/uL Hgb 9.1 L D (11.0-16.0) g/dL Hct 28.4 L (34.0-47.0) % MCV 74.8 L D (81.0-99.0) fL MCH 24.0 L (27.0-31.0) pg MCHC 32.1 L (33.0-37.0) g/dL RDW 18.4 H (11.5-14.5) % Plt Count 200 (130-400) K/uL MPV 9.2 (7.2-11.7) fL Neut % (Auto) 76.7 H (50.0-75.0) % Lymph % (Auto) 13.8 L (20.0-40.0) % Pitt % (Auto) 9.0 (0.0-10.0) % Eos % (Auto) 0.0 (0.0-4.0) % Baso % (Auto) 0.5 (0.0-2.0) % Neut # 5.6 (1.8-7.0) K/uL Lymph # 1.0 (1.0-4.3) K/uL Pitt # 0.7 (0.0-0.8) K/uL Eos # 0.0 (0.0-0.7) K/uL Baso # 0.0 (0.0-0.2) K/uL Neutrophils % (Manual) (50-75) % Band Neutrophils % (0-2) % Lymphocytes % (Manual) (20-40) % Monocytes % (Manual) (0-10) % Platelet Estimate (NORMAL) Polychromasia Hypochromasia (manual) Anisocytosis (manual) Microcytosis (manual) Target Cells Tear Drop Cells Ovalocytes Haptoglobin (43-212) mg/dL Puncture Site Rba pCO2 39 (35-45) mm/Hg pO2 65 L (80-100) mm/Hg HCO3 11.6 L (21-28) mmol/L ABG pH 7.09 L* (7.35-7.45) ABG Total CO2 13.0 L (22-28) mmol/L ABG O2 Saturation 92.2 L (95-98) % ABG Base Excess -17.0 L (-2.0-3.0) mmol/L ABG Hemoglobin 9.3 L (11.7-17.4) g/dL ABG Carboxyhemoglobin 1.1 (0.5-1.5) % POC ABG HHb (Measured) 7.7 H (0.0-5.0) % ABG Methemoglobin 0.0 (0.0-3.0) % Guy Test Pos A-a O2 Difference 171.0 mm/Hg Respiratory Index 2.6 Hgb O2 Saturation 91.1 L (95.0-98.0) % Vent Mode Bipap FiO2 40.0 % Inspiratory BiPAP 12 Expiratory BiPAP 5 Crit Value Called To Jannette johansen Crit Value Called By Brigitte Crit Value Read Back Y Blood Gas Notified Time 2111 Sodium (132-148) mmol/L Potassium (3.6-5.2) mmol/L Chloride (98-107) mmol/L Carbon Dioxide (22-30) mmol/L Anion Gap (10-20) BUN (7-17) mg/dL Creatinine (0.7-1.2) mg/dL Est GFR ( Amer) Est GFR (Non-Af Amer) POC Glucose (mg/dL) 191 H (65-110) mg/dL Random Glucose (65-105) mg/dL Calcium (8.6-10.4) mg/dl % Saturation (20-55) Ferritin ng/mL Total Bilirubin (0.2-1.3) mg/dL AST (14-36) U/L ALT (9-52) U/L Alkaline Phosphatase (38-126) U/L Total Protein (6.3-8.3) g/dL Albumin (3.5-5.0) g/dL Globulin (2.2-3.9) gm/dL Albumin/Globulin Ratio (1.0-2.1) 09/12/17 09/12/17 09/12/17 Range/Units 13:54 13:54 11:28 WBC (4.8-10.8) K/uL RBC (3.80-5.20) Mil/uL Hgb (11.0-16.0) g/dL Hct (34.0-47.0) % MCV (81.0-99.0) fL MCH (27.0-31.0) pg MCHC (33.0-37.0) g/dL RDW (11.5-14.5) % Plt Count (130-400) K/uL MPV (7.2-11.7) fL Neut % (Auto) (50.0-75.0) % Lymph % (Auto) (20.0-40.0) % Pitt % (Auto) (0.0-10.0) % Eos % (Auto) (0.0-4.0) % Baso % (Auto) (0.0-2.0) % Neut # (1.8-7.0) K/uL Lymph # (1.0-4.3) K/uL Pitt # (0.0-0.8) K/uL Eos # (0.0-0.7) K/uL Baso # (0.0-0.2) K/uL Neutrophils % (Manual) (50-75) % Band Neutrophils % (0-2) % Lymphocytes % (Manual) (20-40) % Monocytes % (Manual) (0-10) % Platelet Estimate (NORMAL) Polychromasia Hypochromasia (manual) Anisocytosis (manual) Microcytosis (manual) Target Cells Tear Drop Cells Ovalocytes Haptoglobin (43-212) mg/dL Puncture Site pCO2 (35-45) mm/Hg pO2 (80-100) mm/Hg HCO3 (21-28) mmol/L ABG pH (7.35-7.45) ABG Total CO2 (22-28) mmol/L ABG O2 Saturation (95-98) % ABG Base Excess (-2.0-3.0) mmol/L ABG Hemoglobin (11.7-17.4) g/dL ABG Carboxyhemoglobin (0.5-1.5) % POC ABG HHb (Measured) (0.0-5.0) % ABG Methemoglobin (0.0-3.0) % Guy Test A-a O2 Difference mm/Hg Respiratory Index Hgb O2 Saturation (95.0-98.0) % Vent Mode FiO2 % Inspiratory BiPAP Expiratory BiPAP Crit Value Called To Crit Value Called By Crit Value Read Back Blood Gas Notified Time Sodium (132-148) mmol/L Potassium (3.6-5.2) mmol/L Chloride (98-107) mmol/L Carbon Dioxide (22-30) mmol/L Anion Gap (10-20) BUN (7-17) mg/dL Creatinine (0.7-1.2) mg/dL Est GFR ( Amer) Est GFR (Non-Af Amer) POC Glucose (mg/dL) 163 H (65-110) mg/dL Random Glucose (65-105) mg/dL Calcium (8.6-10.4) mg/dl % Saturation 39 (20-55) Ferritin 41.5 ng/mL Total Bilirubin (0.2-1.3) mg/dL AST (14-36) U/L ALT (9-52) U/L Alkaline Phosphatase (38-126) U/L Total Protein (6.3-8.3) g/dL Albumin (3.5-5.0) g/dL Globulin (2.2-3.9) gm/dL Albumin/Globulin Ratio (1.0-2.1) 09/11/17 Range/Units 12:03 WBC (4.8-10.8) K/uL RBC (3.80-5.20) Mil/uL Hgb (11.0-16.0) g/dL Hct (34.0-47.0) % MCV (81.0-99.0) fL MCH (27.0-31.0) pg MCHC (33.0-37.0) g/dL RDW (11.5-14.5) % Plt Count (130-400) K/uL MPV (7.2-11.7) fL Neut % (Auto) (50.0-75.0) % Lymph % (Auto) (20.0-40.0) % Pitt % (Auto) (0.0-10.0) % Eos % (Auto) (0.0-4.0) % Baso % (Auto) (0.0-2.0) % Neut # (1.8-7.0) K/uL Lymph # (1.0-4.3) K/uL Pitt # (0.0-0.8) K/uL Eos # (0.0-0.7) K/uL Baso # (0.0-0.2) K/uL Neutrophils % (Manual) (50-75) % Band Neutrophils % (0-2) % Lymphocytes % (Manual) (20-40) % Monocytes % (Manual) (0-10) % Platelet Estimate (NORMAL) Polychromasia Hypochromasia (manual) Anisocytosis (manual) Microcytosis (manual) Target Cells Tear Drop Cells Ovalocytes Haptoglobin 276 H (43-212) mg/dL Puncture Site pCO2 (35-45) mm/Hg pO2 (80-100) mm/Hg HCO3 (21-28) mmol/L ABG pH (7.35-7.45) ABG Total CO2 (22-28) mmol/L ABG O2 Saturation (95-98) % ABG Base Excess (-2.0-3.0) mmol/L ABG Hemoglobin (11.7-17.4) g/dL ABG Carboxyhemoglobin (0.5-1.5) % POC ABG HHb (Measured) (0.0-5.0) % ABG Methemoglobin (0.0-3.0) % Guy Test A-a O2 Difference mm/Hg Respiratory Index Hgb O2 Saturation (95.0-98.0) % Vent Mode FiO2 % Inspiratory BiPAP Expiratory BiPAP Crit Value Called To Crit Value Called By Crit Value Read Back Blood Gas Notified Time Sodium (132-148) mmol/L Potassium (3.6-5.2) mmol/L Chloride (98-107) mmol/L Carbon Dioxide (22-30) mmol/L Anion Gap (10-20) BUN (7-17) mg/dL Creatinine (0.7-1.2) mg/dL Est GFR ( Amer) Est GFR (Non-Af Amer) POC Glucose (mg/dL) (65-110) mg/dL Random Glucose (65-105) mg/dL Calcium (8.6-10.4) mg/dl % Saturation (20-55) Ferritin ng/mL Total Bilirubin (0.2-1.3) mg/dL AST (14-36) U/L ALT (9-52) U/L Alkaline Phosphatase (38-126) U/L Total Protein (6.3-8.3) g/dL Albumin (3.5-5.0) g/dL Globulin (2.2-3.9) gm/dL Albumin/Globulin Ratio (1.0-2.1) Laboratory Results - last 24 hr 09/11/17 09/12/17 09/12/17 12:03 11:28 13:54 WBC RBC Hgb Hct MCV MCH MCHC RDW Plt Count MPV Neut % (Auto) Lymph % (Auto) Pitt % (Auto) Eos % (Auto) Baso % (Auto) Neut # Lymph # Pitt # Eos # Baso # Neutrophils % (Manual) Band Neutrophils % Lymphocytes % (Manual) Monocytes % (Manual) Platelet Estimate Polychromasia Hypochromasia (manual) Anisocytosis (manual) Microcytosis (manual) Target Cells Tear Drop Cells Ovalocytes Haptoglobin 276 H Puncture Site pCO2 pO2 HCO3 ABG pH ABG Total CO2 ABG O2 Saturation ABG Base Excess ABG Hemoglobin ABG Carboxyhemoglobin POC ABG HHb (Measured) ABG Methemoglobin Guy Test A-a O2 Difference Respiratory Index Hgb O2 Saturation Vent Mode FiO2 Inspiratory BiPAP Expiratory BiPAP Crit Value Called To Crit Value Called By Crit Value Read Back Blood Gas Notified Time Sodium Potassium Chloride Carbon Dioxide Anion Gap BUN Creatinine Est GFR ( Amer) Est GFR (Non-Af Amer) POC Glucose (mg/dL) 163 H Random Glucose Calcium % Saturation 39 Ferritin Total Bilirubin AST ALT Alkaline Phosphatase Total Protein Albumin Globulin Albumin/Globulin Ratio 09/12/17 09/12/17 09/12/17 13:54 13:54 16:17 WBC 7.3 RBC 3.80 Hgb 9.1 L D Hct 28.4 L MCV 74.8 L D MCH 24.0 L MCHC 32.1 L RDW 18.4 H Plt Count 200 MPV 9.2 Neut % (Auto) 76.7 H Lymph % (Auto) 13.8 L Pitt % (Auto) 9.0 Eos % (Auto) 0.0 Baso % (Auto) 0.5 Neut # 5.6 Lymph # 1.0 Pitt # 0.7 Eos # 0.0 Baso # 0.0 Neutrophils % (Manual) Band Neutrophils % Lymphocytes % (Manual) Monocytes % (Manual) Platelet Estimate Polychromasia Hypochromasia (manual) Anisocytosis (manual) Microcytosis (manual) Target Cells Tear Drop Cells Ovalocytes Haptoglobin Puncture Site pCO2 pO2 HCO3 ABG pH ABG Total CO2 ABG O2 Saturation ABG Base Excess ABG Hemoglobin ABG Carboxyhemoglobin POC ABG HHb (Measured) ABG Methemoglobin Guy Test A-a O2 Difference Respiratory Index Hgb O2 Saturation Vent Mode FiO2 Inspiratory BiPAP Expiratory BiPAP Crit Value Called To Crit Value Called By Crit Value Read Back Blood Gas Notified Time Sodium Potassium Chloride Carbon Dioxide Anion Gap BUN Creatinine Est GFR ( Amer) Est GFR (Non-Af Amer) POC Glucose (mg/dL) 191 H Random Glucose Calcium % Saturation Ferritin 41.5 Total Bilirubin AST ALT Alkaline Phosphatase Total Protein Albumin Globulin Albumin/Globulin Ratio 09/12/17 09/12/17 09/12/17 21:00 21:13 23:36 WBC RBC Hgb Hct MCV MCH MCHC RDW Plt Count MPV Neut % (Auto) Lymph % (Auto) Pitt % (Auto) Eos % (Auto) Baso % (Auto) Neut # Lymph # Pitt # Eos # Baso # Neutrophils % (Manual) Band Neutrophils % Lymphocytes % (Manual) Monocytes % (Manual) Platelet Estimate Polychromasia Hypochromasia (manual) Anisocytosis (manual) Microcytosis (manual) Target Cells Tear Drop Cells Ovalocytes Haptoglobin Puncture Site Rba Rb pCO2 39 44 pO2 65 L 53 L HCO3 11.6 L 17.6 L ABG pH 7.09 L* 7.22 L ABG Total CO2 13.0 L 19.4 L ABG O2 Saturation 92.2 L 88.9 L ABG Base Excess -17.0 L -9.2 L ABG Hemoglobin 9.3 L 9.5 L ABG Carboxyhemoglobin 1.1 1.1 POC ABG HHb (Measured) 7.7 H 10.9 H ABG Methemoglobin 0.0 0.7 Guy Test Pos Na A-a O2 Difference 171.0 177.0 Respiratory Index 2.6 3.3 Hgb O2 Saturation 91.1 L 87.3 L Vent Mode Bipap Bipap FiO2 40.0 40.0 Inspiratory BiPAP 12 16 Expiratory BiPAP 5 8 Crit Value Called To Jannette johansen Crit Value Called By Brigitte Crit Value Read Back Y Blood Gas Notified Time 2111 Sodium Potassium Chloride Carbon Dioxide Anion Gap BUN Creatinine Est GFR ( Amer) Est GFR (Non-Af Amer) POC Glucose (mg/dL) 260 H Random Glucose Calcium % Saturation Ferritin Total Bilirubin AST ALT Alkaline Phosphatase Total Protein Albumin Globulin Albumin/Globulin Ratio 09/13/17 09/13/17 09/13/17 06:15 06:15 07:34 WBC 13.3 H D RBC 4.12 Hgb 10.0 L Hct 31.2 L MCV 75.7 L MCH 24.2 L MCHC 32.0 L RDW 18.7 H Plt Count 211 MPV 9.6 Neut % (Auto) 84.5 H Lymph % (Auto) 5.1 L Pitt % (Auto) 9.5 Eos % (Auto) 0.1 Baso % (Auto) 0.8 Neut # 11.2 H Lymph # 0.7 L Pitt # 1.3 H Eos # 0.0 Baso # 0.1 Neutrophils % (Manual) 89 H Band Neutrophils % 3 H Lymphocytes % (Manual) 4 L Monocytes % (Manual) 4 Platelet Estimate Normal Polychromasia Slight Hypochromasia (manual) Slight Anisocytosis (manual) Slight Microcytosis (manual) Slight Target Cells Slight Tear Drop Cells Slight Ovalocytes Slight Haptoglobin Puncture Site Rb pCO2 49 H pO2 56 L HCO3 19.5 L ABG pH 7.23 L ABG Total CO2 22.0 ABG O2 Saturation 90.5 L ABG Base Excess -6.8 L ABG Hemoglobin 9.3 L ABG Carboxyhemoglobin 1.2 POC ABG HHb (Measured) 9.3 H ABG Methemoglobin 0.4 Guy Test Na A-a O2 Difference 311.0 Respiratory Index 5.6 Hgb O2 Saturation 89.1 L Vent Mode Bipap FiO2 60.0 Inspiratory BiPAP 18 Expiratory BiPAP 8 Crit Value Called To Crit Value Called By Crit Value Read Back Blood Gas Notified Time Sodium 144 Potassium 4.7 Chloride 100 Carbon Dioxide 20 L Anion Gap 29 H BUN 63 H Creatinine 3.0 H Est GFR ( Amer) 18 Est GFR (Non-Af Amer) 15 POC Glucose (mg/dL) Random Glucose 280 H Calcium 8.3 L % Saturation Ferritin Total Bilirubin 0.8 AST 181 H D ALT 158 H D Alkaline Phosphatase 72 Total Protein 7.9 Albumin 4.2 Globulin 3.7 Albumin/Globulin Ratio 1.1 09/13/17 07:38 WBC RBC Hgb Hct MCV MCH MCHC RDW Plt Count MPV Neut % (Auto) Lymph % (Auto) Pitt % (Auto) Eos % (Auto) Baso % (Auto) Neut # Lymph # Pitt # Eos # Baso # Neutrophils % (Manual) Band Neutrophils % Lymphocytes % (Manual) Monocytes % (Manual) Platelet Estimate Polychromasia Hypochromasia (manual) Anisocytosis (manual) Microcytosis (manual) Target Cells Tear Drop Cells Ovalocytes Haptoglobin Puncture Site pCO2 pO2 HCO3 ABG pH ABG Total CO2 ABG O2 Saturation ABG Base Excess ABG Hemoglobin ABG Carboxyhemoglobin POC ABG HHb (Measured) ABG Methemoglobin Guy Test A-a O2 Difference Respiratory Index Hgb O2 Saturation Vent Mode FiO2 Inspiratory BiPAP Expiratory BiPAP Crit Value Called To Crit Value Called By Crit Value Read Back Blood Gas Notified Time Sodium Potassium Chloride Carbon Dioxide Anion Gap BUN Creatinine Est GFR ( Amer) Est GFR (Non-Af Amer) POC Glucose (mg/dL) 264 H Random Glucose Calcium % Saturation Ferritin Total Bilirubin AST ALT Alkaline Phosphatase Total Protein Albumin Globulin Albumin/Globulin Ratio EKG/Cardiology Studies: Cardiology / EKG Studies 09/12/17 13:45 EKG [ELECTROCARDIOGRAM] Stat Comment: Mode Of Transportation: Reason For Exam: 1st degree block Fingerstick Blood Sugar Results: 260 Critical Care Progress Note - Nutrition Nutrition: Nutrition Category Date Time Status Heart Healthy Diet [DIET] Diets 09/10/17 Dinner Active Assessment/Plan - Assessment and Plan (Free Text) Assessment: Patient is an 81 year old female presenting with NSTEMI, acute renal failure and pulmonary edema Plan: Respiratory: CXR 09/12 - Worsening pulmonary vascular congestion. Small bilateral pleural effusion Patient intubated this afternoon Patient started on lasix drip @10mg/hour LE duplex - negative b/l ABG - pH 7.23/pCO2 49/pO2 56/HCO3 19.5 - on BiPAP f/u post intubation ABG WBC13.3 Procalcitonin 0.41 Renal: Nephro consult, Dr. Alatorre, help appreciated Worsening Cr 3.0 from 2.4 Worsening BUN 63 from 52 Urine output ~780 over 24 hours Metabolic Acidosis, worsening - Bicarb 650mg PO TID Renal US - Small size echogenic kidneys suggestive of medical renal disease. No evidence of hydronephrosis. Plan for dialysis - will place dialysis catheter in ICU Cardio: Cardio consult, Dr. Dunbar, help appreciated ECHO 09/10 - EF 50-55%, anterior and apical septum hypokinetic; MR mod.-severe ; TR mod.; Pulmonary HTN mod-severe BP controlled EKG 09/12 - no acute ST segment elevations Aspirin 81mg PO daily Crestor 2.5 mg PO HS Trop 0.646/0.485/0.551/1.03 pro-BNP 41619 Neuro: f/u MRI of brain for dizziness - on hold due to patient not able to tolerate test Endo: ISS Hem/Onc: Hem/Onc, Dr. Lentz consulted, help appreciated Hgb 10 Prophylactic Care: Heparin 5000u SC q8 Protonix 40mg IVP daily Case discussed with Dr. Johnnie Wheat PGY1 <Ismael Blair - Last Filed: 09/14/17 17:49> CCU Objective - Vital Signs / Intake & Output Vital Signs (Last 4 hours): Vital Signs Temp Pulse Resp BP Pulse Ox 09/14/17 17:00 87 18 100 09/14/17 16:51 86 18 137/53 L 99 09/14/17 16:00 98.2 F 88 18 100 09/14/17 15:51 88 18 134/60 99 09/14/17 15:00 85 18 99 09/14/17 14:51 89 18 131/55 L 99 09/14/17 14:00 89 18 99 09/14/17 13:51 87 18 139/55 L 99 Intake and Output (Last 8hrs): Intake & Output 09/14/17 09/14/17 09/14/17 06:59 14:59 22:59 Intake Total 193 228.0 164.0 Output Total 400 755 200 Balance -207 -527.0 -36.0 Weight 105 lb Intake: IV 25 80 90 Intake, IV Amount 168 148.0 74.0 Left Antecubital 80 80 40 Right Antecubital 88 68.0 34.0 Output: Urine 400 755 200 Urethral (Garcia) 400 755 200 Stool 0 0 Emesis 0 0 - Medications Active Medications: Active Medications Generic Name Dose Route Start Last Admin Trade Name Freq PRN Reason Stop Dose Admin Acetaminophen 650 mg 09/10/17 17:00 Tylenol 325mg Tab PO Q6 PRN Fever >100.4 F Aspirin 81 mg 09/11/17 10:00 09/14/17 08:59 Ecotrin PO Not Given DAILY [facility] Dextrose 0 ml 09/10/17 17:21 Dextrose 50% Inj IV STAT PRN Hypoglycemia Protocol Protocol Dextrose 0 gm 09/10/17 17:21 Glutose 15 PO ONCE PRN Hypoglycemia Protocol Protocol Ferric Sodium Gluconate Complex 125 mg 09/14/17 11:30 09/14/17 13:08 Ferrlecit IVPB 09/22/17 11:31 125 mg DAILY [facility] Administration Glucagon 0 mg 09/10/17 17:21 Glucagen Diagnostic Kit IM STAT PRN Hypoglycemia Protocol Protocol Heparin Sodium (Porcine) 5,000 units 09/12/17 22:00 09/14/17 13:09 Heparin SC 5,000 units Q8 [facility] Administration Dextrose 1,000 mls @ 0 mls/hr 09/10/17 17:21 Dextrose 5% In Water 1000 Ml IV .Q0M PRN Hypoglycemia Protocol Protocol Per Protocol Furosemide 100 mg/ Sodium 100 mls @ 10 mls/hr 09/13/17 10:00 09/14/17 16:08 Chloride IV Not Given .Q10H [facility] Protocol 10 MG/HR Propofol 1,000 mg in 100 mls @ 1.429 mls/hr 09/13/17 12:08 09/14/17 17:13 Diprivan IV 30 mcg/kg/min .Q24H PRN 8.573 mls/hr TITRATE PER MD ORDER Administration Protocol 5 MCG/KG/MIN Insulin Aspart 0 unit 09/14/17 18:00 Novolog SC Q6H [facility] Protocol Insulin Detemir 6 unit 09/15/17 10:00 Levemir SC QAM [facility] Insulin Detemir 6 unit 09/14/17 22:00 Levemir SC HS [facility] Ondansetron HCl 4 mg 09/10/17 17:00 09/13/17 11:01 Zofran Inj IVP 4 mg Q6 PRN Administration Nausea/Vomiting Pantoprazole Sodium 40 mg 09/11/17 10:00 09/14/17 09:05 Protonix Inj IVP 40 mg DAILY [facility] Administration Rosuvastatin Calcium 2.5 mg 09/10/17 22:00 09/13/17 23:12 Crestor PO Not Given HS [facility] - Patient Studies Lab Studies: Microbiology Studies 09/10/17 15:00 Blood Culture - Preliminary Blood NO GROWTH AFTER 3 DAYS 09/10/17 13:45 Blood Culture - Preliminary Blood NO GROWTH AFTER 3 DAYS 09/13/17 12:07 Gram Stain - Final Trachasp Lab Studies 09/14/17 09/14/17 09/14/17 Range/Units 11:13 07:50 06:29 WBC (4.8-10.8) K/uL RBC (3.80-5.20) Mil/uL Hgb (11.0-16.0) g/dL Hct (34.0-47.0) % MCV (81.0-99.0) fL MCH (27.0-31.0) pg MCHC (33.0-37.0) g/dL RDW (11.5-14.5) % Plt Count (130-400) K/uL MPV (7.2-11.7) fL Neut % (Auto) (50.0-75.0) % Lymph % (Auto) (20.0-40.0) % Pitt % (Auto) (0.0-10.0) % Eos % (Auto) (0.0-4.0) % Baso % (Auto) (0.0-2.0) % Neut # (1.8-7.0) K/uL Lymph # (1.0-4.3) K/uL Pitt # (0.0-0.8) K/uL Eos # (0.0-0.7) K/uL Baso # (0.0-0.2) K/uL Puncture Site pCO2 (35-45) mm/Hg pO2 (80-100) mm/Hg HCO3 (21-28) mmol/L ABG pH (7.35-7.45) ABG Total CO2 (22-28) mmol/L ABG O2 Saturation (95-98) % ABG Base Excess (-2.0-3.0) mmol/L ABG Hemoglobin (11.7-17.4) g/dL ABG Carboxyhemoglobin (0.5-1.5) % POC ABG HHb (Measured) (0.0-5.0) % ABG Methemoglobin (0.0-3.0) % Guy Test A-a O2 Difference mm/Hg Respiratory Index Hgb O2 Saturation (95.0-98.0) % Vent Mode Mechanical Rate FiO2 % Tidal Volume PEEP Sodium 145 (132-148) mmol/L Potassium 3.8 (3.6-5.2) mmol/L Chloride 100 (98-107) mmol/L Carbon Dioxide 19 L (22-30) mmol/L Anion Gap 30 H (10-20) BUN 67 H (7-17) mg/dL Creatinine 3.2 H (0.7-1.2) mg/dL Est GFR ( Amer) 17 Est GFR (Non-Af Amer) 14 POC Glucose (mg/dL) 238 H 238 H (65-110) mg/dL Random Glucose 192 H (65-105) mg/dL Calcium 8.0 L (8.6-10.4) mg/dl Phosphorus 4.8 H (2.5-4.5) mg/dL Magnesium 2.2 (1.6-2.3) mg/dL Total Bilirubin 0.7 (0.2-1.3) mg/dL AST 89 H (14-36) U/L ALT 124 H (9-52) U/L Alkaline Phosphatase 64 (38-126) U/L Total Protein 6.8 (6.3-8.3) g/dL Albumin 3.5 (3.5-5.0) g/dL Globulin 3.3 (2.2-3.9) gm/dL Albumin/Globulin Ratio 1.1 (1.0-2.1) Stool Occult Blood (NEGATIVE) Serum Immunofixation (Not Detected) Urine Immunofixation (Not Detected) 09/14/17 09/14/17 09/13/17 Range/Units 06:29 04:35 21:43 WBC 9.9 (4.8-10.8) K/uL RBC 4.09 (3.80-5.20) Mil/uL Hgb 9.8 L (11.0-16.0) g/dL Hct 29.9 L (34.0-47.0) % MCV 73.2 L D (81.0-99.0) fL MCH 24.1 L (27.0-31.0) pg MCHC 32.9 L (33.0-37.0) g/dL RDW 17.9 H (11.5-14.5) % Plt Count 213 (130-400) K/uL MPV 9.6 (7.2-11.7) fL Neut % (Auto) 73.5 (50.0-75.0) % Lymph % (Auto) 13.3 L (20.0-40.0) % Pitt % (Auto) 12.4 H (0.0-10.0) % Eos % (Auto) 0.0 (0.0-4.0) % Baso % (Auto) 0.8 (0.0-2.0) % Neut # 7.3 H (1.8-7.0) K/uL Lymph # 1.3 (1.0-4.3) K/uL Pitt # 1.2 H (0.0-0.8) K/uL Eos # 0.0 (0.0-0.7) K/uL Baso # 0.1 (0.0-0.2) K/uL Puncture Site Rb pCO2 23 L (35-45) mm/Hg pO2 231 H (80-100) mm/Hg HCO3 24.3 (21-28) mmol/L ABG pH 7.55 H (7.35-7.45) ABG Total CO2 20.8 L (22-28) mmol/L ABG O2 Saturation 98.0 (95-98) % ABG Base Excess -0.8 (-2.0-3.0) mmol/L ABG Hemoglobin 12.2 (11.7-17.4) g/dL ABG Carboxyhemoglobin 0.1 L (0.5-1.5) % POC ABG HHb (Measured) 2.0 (0.0-5.0) % ABG Methemoglobin 0.1 (0.0-3.0) % Guy Test Na A-a O2 Difference 168.0 mm/Hg Respiratory Index 0.7 Hgb O2 Saturation 97.8 (95.0-98.0) % Vent Mode Prvc Mechanical Rate 18 FiO2 60.0 % Tidal Volume 500 PEEP 5 Sodium (132-148) mmol/L Potassium (3.6-5.2) mmol/L Chloride (98-107) mmol/L Carbon Dioxide (22-30) mmol/L Anion Gap (10-20) BUN (7-17) mg/dL Creatinine (0.7-1.2) mg/dL Est GFR ( Amer) Est GFR (Non-Af Amer) POC Glucose (mg/dL) (65-110) mg/dL Random Glucose (65-105) mg/dL Calcium (8.6-10.4) mg/dl Phosphorus (2.5-4.5) mg/dL Magnesium (1.6-2.3) mg/dL Total Bilirubin (0.2-1.3) mg/dL AST (14-36) U/L ALT (9-52) U/L Alkaline Phosphatase (38-126) U/L Total Protein (6.3-8.3) g/dL Albumin (3.5-5.0) g/dL Globulin (2.2-3.9) gm/dL Albumin/Globulin Ratio (1.0-2.1) Stool Occult Blood Negative (NEGATIVE) Serum Immunofixation (Not Detected) Urine Immunofixation (Not Detected) 09/13/17 09/13/17 09/11/17 Range/Units 21:38 17:54 10:18 WBC (4.8-10.8) K/uL RBC (3.80-5.20) Mil/uL Hgb (11.0-16.0) g/dL Hct (34.0-47.0) % MCV (81.0-99.0) fL MCH (27.0-31.0) pg MCHC (33.0-37.0) g/dL RDW (11.5-14.5) % Plt Count (130-400) K/uL MPV (7.2-11.7) fL Neut % (Auto) (50.0-75.0) % Lymph % (Auto) (20.0-40.0) % Pitt % (Auto) (0.0-10.0) % Eos % (Auto) (0.0-4.0) % Baso % (Auto) (0.0-2.0) % Neut # (1.8-7.0) K/uL Lymph # (1.0-4.3) K/uL Pitt # (0.0-0.8) K/uL Eos # (0.0-0.7) K/uL Baso # (0.0-0.2) K/uL Puncture Site pCO2 (35-45) mm/Hg pO2 (80-100) mm/Hg HCO3 (21-28) mmol/L ABG pH (7.35-7.45) ABG Total CO2 (22-28) mmol/L ABG O2 Saturation (95-98) % ABG Base Excess (-2.0-3.0) mmol/L ABG Hemoglobin (11.7-17.4) g/dL ABG Carboxyhemoglobin (0.5-1.5) % POC ABG HHb (Measured) (0.0-5.0) % ABG Methemoglobin (0.0-3.0) % Guy Test A-a O2 Difference mm/Hg Respiratory Index Hgb O2 Saturation (95.0-98.0) % Vent Mode Mechanical Rate FiO2 % Tidal Volume PEEP Sodium 143 (132-148) mmol/L Potassium 4.5 (3.6-5.2) mmol/L Chloride 98 (98-107) mmol/L Carbon Dioxide 20 L (22-30) mmol/L Anion Gap 29 H (10-20) BUN 64 H (7-17) mg/dL Creatinine 3.1 H (0.7-1.2) mg/dL Est GFR ( Amer) 17 Est GFR (Non-Af Amer) 14 POC Glucose (mg/dL) 228 H (65-110) mg/dL Random Glucose 223 H (65-105) mg/dL Calcium 8.0 L (8.6-10.4) mg/dl Phosphorus (2.5-4.5) mg/dL Magnesium (1.6-2.3) mg/dL Total Bilirubin 1.0 (0.2-1.3) mg/dL AST 110 H D (14-36) U/L ALT 128 H (9-52) U/L Alkaline Phosphatase 67 (38-126) U/L Total Protein 6.6 (6.3-8.3) g/dL Albumin 4.0 (3.5-5.0) g/dL Globulin 2.6 (2.2-3.9) gm/dL Albumin/Globulin Ratio 1.5 (1.0-2.1) Stool Occult Blood (NEGATIVE) Serum Immunofixation (Not Detected) Urine Immunofixation Not detected (Not Detected) 09/11/17 Range/Units 09:16 WBC (4.8-10.8) K/uL RBC (3.80-5.20) Mil/uL Hgb (11.0-16.0) g/dL Hct (34.0-47.0) % MCV (81.0-99.0) fL MCH (27.0-31.0) pg MCHC (33.0-37.0) g/dL RDW (11.5-14.5) % Plt Count (130-400) K/uL MPV (7.2-11.7) fL Neut % (Auto) (50.0-75.0) % Lymph % (Auto) (20.0-40.0) % Pitt % (Auto) (0.0-10.0) % Eos % (Auto) (0.0-4.0) % Baso % (Auto) (0.0-2.0) % Neut # (1.8-7.0) K/uL Lymph # (1.0-4.3) K/uL Pitt # (0.0-0.8) K/uL Eos # (0.0-0.7) K/uL Baso # (0.0-0.2) K/uL Puncture Site pCO2 (35-45) mm/Hg pO2 (80-100) mm/Hg HCO3 (21-28) mmol/L ABG pH (7.35-7.45) ABG Total CO2 (22-28) mmol/L ABG O2 Saturation (95-98) % ABG Base Excess (-2.0-3.0) mmol/L ABG Hemoglobin (11.7-17.4) g/dL ABG Carboxyhemoglobin (0.5-1.5) % POC ABG HHb (Measured) (0.0-5.0) % ABG Methemoglobin (0.0-3.0) % Guy Test A-a O2 Difference mm/Hg Respiratory Index Hgb O2 Saturation (95.0-98.0) % Vent Mode Mechanical Rate FiO2 % Tidal Volume PEEP Sodium (132-148) mmol/L Potassium (3.6-5.2) mmol/L Chloride (98-107) mmol/L Carbon Dioxide (22-30) mmol/L Anion Gap (10-20) BUN (7-17) mg/dL Creatinine (0.7-1.2) mg/dL Est GFR ( Amer) Est GFR (Non-Af Amer) POC Glucose (mg/dL) (65-110) mg/dL Random Glucose (65-105) mg/dL Calcium (8.6-10.4) mg/dl Phosphorus (2.5-4.5) mg/dL Magnesium (1.6-2.3) mg/dL Total Bilirubin (0.2-1.3) mg/dL AST (14-36) U/L ALT (9-52) U/L Alkaline Phosphatase (38-126) U/L Total Protein (6.3-8.3) g/dL Albumin (3.5-5.0) g/dL Globulin (2.2-3.9) gm/dL Albumin/Globulin Ratio (1.0-2.1) Stool Occult Blood (NEGATIVE) Serum Immunofixation Detected H (Not Detected) Urine Immunofixation (Not Detected) Laboratory Results - last 24 hr 09/11/17 09/11/17 09/13/17 09:16 10:18 17:54 WBC RBC Hgb Hct MCV MCH MCHC RDW Plt Count MPV Neut % (Auto) Lymph % (Auto) Pitt % (Auto) Eos % (Auto) Baso % (Auto) Neut # Lymph # Pitt # Eos # Baso # Puncture Site pCO2 pO2 HCO3 ABG pH ABG Total CO2 ABG O2 Saturation ABG Base Excess ABG Hemoglobin ABG Carboxyhemoglobin POC ABG HHb (Measured) ABG Methemoglobin Guy Test A-a O2 Difference Respiratory Index Hgb O2 Saturation Vent Mode Mechanical Rate FiO2 Tidal Volume PEEP Sodium 143 Potassium 4.5 Chloride 98 Carbon Dioxide 20 L Anion Gap 29 H BUN 64 H Creatinine 3.1 H Est GFR ( Amer) 17 Est GFR (Non-Af Amer) 14 POC Glucose (mg/dL) Random Glucose 223 H Calcium 8.0 L Phosphorus Magnesium Total Bilirubin 1.0 AST 110 H D ALT 128 H Alkaline Phosphatase 67 Total Protein 6.6 Albumin 4.0 Globulin 2.6 Albumin/Globulin Ratio 1.5 Stool Occult Blood Serum Immunofixation Detected H Urine Immunofixation Not detected 09/13/17 09/13/17 09/14/17 21:38 21:43 04:35 WBC RBC Hgb Hct MCV MCH MCHC RDW Plt Count MPV Neut % (Auto) Lymph % (Auto) Pitt % (Auto) Eos % (Auto) Baso % (Auto) Neut # Lymph # Pitt # Eos # Baso # Puncture Site Rb pCO2 23 L pO2 231 H HCO3 24.3 ABG pH 7.55 H ABG Total CO2 20.8 L ABG O2 Saturation 98.0 ABG Base Excess -0.8 ABG Hemoglobin 12.2 ABG Carboxyhemoglobin 0.1 L POC ABG HHb (Measured) 2.0 ABG Methemoglobin 0.1 Guy Test Na A-a O2 Difference 168.0 Respiratory Index 0.7 Hgb O2 Saturation 97.8 Vent Mode Prvc Mechanical Rate 18 FiO2 60.0 Tidal Volume 500 PEEP 5 Sodium Potassium Chloride Carbon Dioxide Anion Gap BUN Creatinine Est GFR ( Amer) Est GFR (Non-Af Amer) POC Glucose (mg/dL) 228 H Random Glucose Calcium Phosphorus Magnesium Total Bilirubin AST ALT Alkaline Phosphatase Total Protein Albumin Globulin Albumin/Globulin Ratio Stool Occult Blood Negative Serum Immunofixation Urine Immunofixation 09/14/17 09/14/17 09/14/17 06:29 06:29 07:50 WBC 9.9 RBC 4.09 Hgb 9.8 L Hct 29.9 L MCV 73.2 L D MCH 24.1 L MCHC 32.9 L RDW 17.9 H Plt Count 213 MPV 9.6 Neut % (Auto) 73.5 Lymph % (Auto) 13.3 L Pitt % (Auto) 12.4 H Eos % (Auto) 0.0 Baso % (Auto) 0.8 Neut # 7.3 H Lymph # 1.3 Pitt # 1.2 H Eos # 0.0 Baso # 0.1 Puncture Site pCO2 pO2 HCO3 ABG pH ABG Total CO2 ABG O2 Saturation ABG Base Excess ABG Hemoglobin ABG Carboxyhemoglobin POC ABG HHb (Measured) ABG Methemoglobin Guy Test A-a O2 Difference Respiratory Index Hgb O2 Saturation Vent Mode Mechanical Rate FiO2 Tidal Volume PEEP Sodium 145 Potassium 3.8 Chloride 100 Carbon Dioxide 19 L Anion Gap 30 H BUN 67 H Creatinine 3.2 H Est GFR ( Amer) 17 Est GFR (Non-Af Amer) 14 POC Glucose (mg/dL) 238 H Random Glucose 192 H Calcium 8.0 L Phosphorus 4.8 H Magnesium 2.2 Total Bilirubin 0.7 AST 89 H ALT 124 H Alkaline Phosphatase 64 Total Protein 6.8 Albumin 3.5 Globulin 3.3 Albumin/Globulin Ratio 1.1 Stool Occult Blood Serum Immunofixation Urine Immunofixation 09/14/17 11:13 WBC RBC Hgb Hct MCV MCH MCHC RDW Plt Count MPV Neut % (Auto) Lymph % (Auto) Pitt % (Auto) Eos % (Auto) Baso % (Auto) Neut # Lymph # Pitt # Eos # Baso # Puncture Site pCO2 pO2 HCO3 ABG pH ABG Total CO2 ABG O2 Saturation ABG Base Excess ABG Hemoglobin ABG Carboxyhemoglobin POC ABG HHb (Measured) ABG Methemoglobin Guy Test A-a O2 Difference Respiratory Index Hgb O2 Saturation Vent Mode Mechanical Rate FiO2 Tidal Volume PEEP Sodium Potassium Chloride Carbon Dioxide Anion Gap BUN Creatinine Est GFR ( Amer) Est GFR (Non-Af Amer) POC Glucose (mg/dL) 238 H Random Glucose Calcium Phosphorus Magnesium Total Bilirubin AST ALT Alkaline Phosphatase Total Protein Albumin Globulin Albumin/Globulin Ratio Stool Occult Blood Serum Immunofixation Urine Immunofixation Critical Care Progress Note - Nutrition Nutrition: Nutrition Category Date Time Status Heart Healthy Diet [DIET] Diets 09/10/17 Dinner Active Attending/Attestation - Attestation I have personally seen and examined this patient.: Yes I have fully participated in the care of the patient.: Yes I have reviewed all pertinent clinical information: Yes Notes (Text): Patient seen and examined in the intensive care unit. Case discussed with staff in the morning Patient intubated and put on ventilatory support for severe respiratory distress , metabolic acidosis and worsening renal function Started on Lasix drip No signs and symptoms of infection, pro-calcitonin level normal Follow-up urine output Dialysis as needed Reduce FiO2 as tolerated
--- NOTE | 2017-09-13 12:00 | CP.PCM.PN ---
Subjective - Date & Time of Evaluation Date of Evaluation: 09/13/17 Time of Evaluation: 11:30 - Subjective Subjective: Hospitalist Progress Note Patient was seen and examined at 11:45 AM 09/13/17 ICU Bed 6 Currently upon FULL ROS is not possible as patient is on BIPAP and is about to be intubated. - Head Exam Head Exam: NORMAL INSPECTION - Eye Exam Eye Exam: EOMI, PERRL. absent: Nystagmus, Scleral icterus - ENT Exam ENT Exam: Mucous Membranes Moist - Respiratory Exam Respiratory Exam: Bibasilar Inspiratory Crackles. absent: Wheezes, Stridor - Cardiovascular Exam Cardiovascular Exam: REGULAR RHYTHM, +S1, +S2 - GI/Abdominal Exam GI & Abdominal Exam: Soft, Normal Bowel Sounds. absent: Distended, Firm, Guarding, Rigid, Tenderness, Rebound - Extremities Exam Extremities Exam: Normal Capillary Refill. absent: Pedal Edema, Tenderness - Back Exam Back Exam: absent: CVA tenderness (L), CVA tenderness (R) - Neurological Exam Neurological Exam: Alert, Awake, Oriented x3 - Skin Skin Exam: Dry, Intact, Normal Color, Warm Additional comments: Assessment and Plan (1) Acute Renal Failure Assessment & Plan: * Nephrology Dr. Chowdhury?Landry is following * BUN/Cr worsened and patient was given trial of Lasix 09/12/17 evening and this morning. However, Renal Function has not improved and patient will likely need HD. ICU Team to place HD catheter and will plan for HD 09/14/17 * Renal U/S 09/12/17 showed small echogenic kidneys suggestive of medical renal disease Status: Acute (2) Grade I Diastolic Heart Failure Echocardiogram 09/10/17 showed EF of 58% with hypokinetic anterior and apical septum and Grade I Abnormal Relaxation Patter. Moderate Tricuspid regurgitation and moderate to severe pulmonary HTN Elevated ProBNP upon admission Chest X Ray 09/13/17 showed increased pulmonary vascular congestion Patient to receive HD 09/14/17 to help remove fluid from lungs as there is renal failure (3) Acute Respiratory Failure Likely secondary to the increased pulmonary vascular congestion from the blood transfusions on 09/12/17 Patient to be intubated by ICU team 09/13/17 (4) Leukocytosis Currently at 13.3 with left shift NO fevers Blood Culture 09/10/17 is Negative To Date Urine Culture 09/10/17 showed multiple species therefore another Urine Culture ordered 09/13/17 Could be reactive therefore will hold off on antibiotic for now and follow up ProCalcitonin Consider CT Chest if this worsens to rule out underlying pneumonia (5) Elevated Troponin Assessment & Plan: * Cardiology Dr. Dunbar on board-->help appreciated * Elevated Troponin: 0.6460-->0.4850-->0.5510 * On Aspirin 81mg PO daily Status: Acute (6) Diabetes 2 Assessment & Plan: HgBa1c: 7.8 Hypoglycemia protocol Crestor 2.5mg PO qHS Off metformin, glipizide on admission given acute renal failure Aspart sliding scale Status: Chronic (7) Hypertension Assessment & Plan: Off anti-hypertensives (Hydralazine, Metoprolol XL, Amlodipine, Losartan/HCTZ, Lasix, Imdur) because of hypotension upon admission Currently stable Status: Chronic (8) Anemia Assessment & Plan: retic count: 2.2 Iron: 44 TIBC: 220 iron saturation: 20 Ferritin: 31 Feosol 300 mg liquid PO 2x/day Occult blood negative upon admission HgB dropped to 7.0 and 2 units PRBC transfused 09/12/17. HgB/Hct is stable at 10.0/31.2 F/U KARON, SPEP, Serum Immunofixation F/U further recommendations from Heme/Onc Dr. Toña Lentz F/U repeat Stool Occult Blood 09/12/17 and if positive then will get GI involved Status: Chronic (9) Polypharmacy Assessment & Plan: Held home medications on admission including diabetic and diuretic medications given acute renal failure Status: Acute (10) Vertigo Assessment & Plan: CT Head: negative on admission Patient has seen previously Dr. 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 Consent for HD obtained by Applications Development Analyst Dr. Alatorre and placed in chart. Kareem Wiggins D.O. Objective - Vital Signs/Intake and Output Vital Signs (last 24 hours): Temp Pulse Resp BP Pulse Ox 98.2 F 80 17 150/62 84 L 09/13/17 04:00 09/13/17 08:25 09/13/17 05:52 09/13/17 09:35 09/13/17 05:52 Intake and Output: 09/13/17 09/13/17 06:59 18:59 Intake Total 360 Output Total 360 Balance 0 - Medications Medications: Current Medications Acetaminophen (Tylenol 325mg Tab) 650 mg PO Q6 PRN PRN Reason: Fever >100.4 F Aspirin (Ecotrin) 81 mg PO DAILY [facility] Last Admin: 09/12/17 09:14 Dose: Not Given Dextrose (Dextrose 50% Inj) 0 ml IV STAT PRN; Protocol PRN Reason: Hypoglycemia Protocol Dextrose (Glutose 15) 0 gm PO ONCE PRN; Protocol PRN Reason: Hypoglycemia Protocol Ferrous Sulfate (Feosol Liq) 300 mg PO BID [facility] Last Admin: 09/13/17 11:00 Dose: 300 mg Glucagon (Glucagen Diagnostic Kit) 0 mg IM STAT PRN; Protocol PRN Reason: Hypoglycemia Protocol Heparin Sodium (Porcine) (Heparin) 5,000 units SC Q8 [facility] Last Admin: 09/13/17 06:16 Dose: 5,000 units Dextrose (Dextrose 5% In Water 1000 Ml) 1,000 mls @ 0 mls/hr IV .Q0M PRN; Protocol; Per Protocol PRN Reason: Hypoglycemia Protocol Furosemide 100 mg/ Sodium (Chloride) 100 mls @ 10 mls/hr IV .Q10H [facility]; 10 MG/HR PRN Reason: Protocol Last Admin: 09/13/17 09:35 Dose: 10 mls/hr Insulin Aspart (Novolog) 0 unit SC ACHS [facility] PRN Reason: Protocol Last Admin: 09/13/17 08:34 Dose: Not Given Ondansetron HCl (Zofran Inj) 4 mg IVP Q6 PRN PRN Reason: Nausea/Vomiting Last Admin: 09/13/17 11:01 Dose: 4 mg Pantoprazole Sodium (Protonix Inj) 40 mg IVP DAILY [facility] Last Admin: 09/13/17 10:00 Dose: 40 mg Rosuvastatin Calcium (Crestor) 2.5 mg PO HS [facility] Last Admin: 09/12/17 22:23 Dose: 2.5 mg Sodium Bicarbonate (Sodium Bicarbonate Tab) 650 mg PO TID [facility] Last Admin: 09/13/17 11:01 Dose: 650 mg - Labs Labs: 09/13/17 06:15 09/13/17 06:15 PT 10.3 SECONDS (9.7-12.2) 09/10/17 13:52 INR 0.9 09/10/17 13:52 APTT 34 SECONDS (21-34) 09/10/17 13:52
[2017-09-13] MEDS: Propofol 10 mg/ml 1,000 MG/100 ML VIAL IV PRN ×2 (12:15→20:00)
[2017-09-13] MEDS ORDERED: Etomidate 20 mg/10ml Inj IV ONE (12:15)
[2017-09-13 13:14] LABS: ABG MECHANICAL RATE 18; ARTERIAL BLOOD GAS MODE PRVC; ARTERIAL BLOOD HGB O2 SAT 96.6 % (95.0-98.0); ATERIAL BLOOD GAS PEEP 5; CARBOXYHEMOGLOBIN 0.2 % (0.5-1.5); DRAW SITE LB; HHB 2.6 % (0.0-5.0); METHEMOGLOBIN 0.6 % (0.0-3.0)
[2017-09-13 13:18] LABS: FREE KAPPA SERUM 55.1 mg/L (3.3-19.4); FREE LAMBDA SERUM 34.7 mg/L (5.7-26.3)
--- NOTE | 2017-09-13 13:19 | RAD ---
PROCEDURE: CHEST RADIOGRAPH, 1 VIEW HISTORY: post intubation COMPARISON: Chest radiograph performed approximately 5 hours prior. FINDINGS: LUNGS: Stable pulmonary vascular congestion/edema. PLEURA: Small bilateral pleural effusions. No pneumothorax. CARDIOVASCULAR: Cardiomediastinal silhouette unchanged. OSSEOUS STRUCTURES: Unchanged. VISUALIZED UPPER ABDOMEN: Normal. OTHER FINDINGS: Interval intubation with endotracheal tube tip at the level of the jo-ann. . IMPRESSION: Interval intubation with tip at the level of the jo-ann. Slight retraction is recommended. No other significant interval change. Findings and recommendations conveyed to Dr. Blair by Dr. Jha at 1:15 p.m. on 09/13/2017.
--- NOTE | 2017-09-13 16:27 | PN ---
SUBJECTIVE: The patient did require intubation just now and mechanical ventilation for worsening oxygenation and will be initiated on hemodialysis because of worsening metabolic acidosis. PHYSICAL EXAMINATION: VITAL SIGNS: Blood pressure 150/68, heart rate 80, respirations 17, temperature 98.2. Marked LV sinus rhythm with second-degree AV block. HEENT: Pale conjunctivae. CHEST: Bilateral coarse crepitations basally. HEART: S1 and S2 regular. EXTREMITIES: No edema. LABORATORY DATA: SMA-7: Sodium 144, potassium 4.7, chloride 100, CO2 of 20, glucose 280, BUN 63, creatinine 3.0. Hemoglobin and hematocrit 10 and 31.2, white count 15.3, platelet count 211,000. Blood culture was negative after 48 hours. Stool occult blood is negative. Official echo report, ejection fraction in the range of 50% to 55%, anterior apical and septal hypokinesis, [id number] mitral insufficiency and [id number] pulmonary hypertension. Chest x-ray today revealed worsening pulmonary congestion and small bilateral pleural effusion. ASSESSMENT: 1. Acute respiratory failure. 2. Segmental hypokinesis, still consisting with underlying coronary artery disease. 3. Rule out bilateral pneumonia. The patient at time of intubation had purulent secretions. 4. Worsening renal insufficiency and metabolic acidosis. 5. Anemia. RECOMMENDATIONS: Case was discussed with Dr. Castro, tracheal aspirate will be sent for bacteriology workup as well as serology workup for atypical pneumonia. Continue subcutaneous heparin 5000 units q.8 hours, aspirin 81 mg once a day, Crestor 2.5 mg once a day. The patient is not a suitable candidate for invasive cardiac workup at this time. Elvis Dunbar MD
[2017-09-13 18:11] LABS: ALB/GLOB RATIO 1.5 (1.0-2.1); POTASSIUM 4.5 mmol/L (3.6-5.2); TOTAL PROTEIN 6.6 g/dL (6.3-8.3)
--- NOTE | 2017-09-13 19:06 | PCM.PROC ---
Procedures Attestation:: I certify that I have explained the specified Operation(s) or Procedure(s), risks, benefits and reasonable alternatives to the Patient and/or other person responsible. The opportunity was given to ask questions and all questions answered - Intubation Sedative: Etomidate Mg Given: 20 ET Tube Size: 8.0 ET Tube Uncuffed: No ET Tube Secured at Depth: 20 ET Tube Secured Locarion: Lips ET Tube Placement Confirmation: Visualized Passing Through Cords, Breath Sounds Equal Bilaterally, No Breath Sounds Over Epigastrum, Confirmation w/Capnometry Patient Tolerated Procedure: Well Procedure Immediate Complications: None
[2017-09-13] MEDS: Rosuvastatin Calcium 2.5 mg Tab PO SCH (23:12)
[2017-09-14 04:46] LABS: ABG MECHANICAL RATE 18; ARTERIAL BLOOD GAS MODE PRVC; ARTERIAL BLOOD HGB O2 SAT 97.8 % (95.0-98.0); ATERIAL BLOOD GAS PEEP 5; CARBOXYHEMOGLOBIN 0.1 % (0.5-1.5); DRAW SITE RB; METHEMOGLOBIN 0.1 % (0.0-3.0)
[2017-09-14 06:37] LABS: BASO # 0.1 K/uL (0.0-0.2); BASO % 0.8 % (0.0-2.0); HEMATOCRIT 29.9 % (34.0-47.0); LYMPH # 1.3 K/uL (1.0-4.3); LYMPH % 13.3 % (20.0-40.0); MEAN CELL VOLUME 73.2 fL (81.0-99.0); MEAN CORPUSCULAR HEMOGLOBIN 24.1 pg (27.0-31.0); MEAN CORPUSCULAR HGB CONC 32.9 g/dL (33.0-37.0); MEAN PLATELET VOLUME 9.6 fL (7.2-11.7); MONO # 1.2 K/uL (0.0-0.8); MONO % 12.4 % (0.0-10.0); NRBC % 0.4 % (0.0-2.0); RED CELL DISTRIBUTION WIDTH 17.9 % (11.5-14.5); WHITE BLOOD COUNT 9.9 K/uL (4.8-10.8)
[2017-09-14 07:00] LABS: ALB/GLOB RATIO 1.1 (1.0-2.1); BILIRUBIN,TOTAL 0.7 mg/dL (0.2-1.3); MAGNESIUM 2.2 mg/dL (1.6-2.3); PHOSPHOROUS 4.8 mg/dL (2.5-4.5); POTASSIUM 3.8 mmol/L (3.6-5.2); TOTAL PROTEIN 6.8 g/dL (6.3-8.3)
[2017-09-14] MEDS: Propofol 10 mg/ml 1,000 MG/100 ML VIAL IV PRN ×2 (07:16→17:13)
[2017-09-14] MEDS: Furosemide 100 MG in Sodium Chloride 0.9% 90 ML IV SCH ×4 (07:18→20:00)
[2017-09-14] MEDS: (Novolog) Insulin Aspart, Recombinant 100 u/ml 10 ml vial SC SCH ×4 (07:28→18:18)
--- NOTE | 2017-09-14 08:22 | RAD ---
HISTORY: intubated COMPARISON: Portable chest 09/05/2017. FINDINGS: Endotracheal tube appears unchanged within interval the J-tube now identified placed with the tip terminating at the left upper quadrant abdomen. LUNGS: Diminishing right suprahilar and basilar infiltrate is appreciated limited patchy density noted at the left perihilar space and possibly root left retrocardiac space. Minimal left pleural effusion is evident. None is seen the right. No pneumothorax bilaterally. CARDIOVASCULAR: Cardiomediastinal silhouette appears stable. OSSEOUS STRUCTURES: No significant abnormalities. VISUALIZED UPPER ABDOMEN: Normal. OTHER FINDINGS: None. IMPRESSION: Diminishing right-sided infiltrate. Limited left perihilar infiltrate remaining and possible patchy density at left retrocardiac space. Trace of pleural effusion in question. Nasonex tube is identified placed terminating at the left upper quadrant abdomen.
[2017-09-14] MEDS: Ferrous Sulfate 300 mg/5 mL Liq UD PO SCH (08:59)
--- NOTE | 2017-09-14 11:20 | CP.CCUPN ---
<Bertin Wheat - Last Filed: 09/14/17 14:10> CCU Subjective - Physician Review Subjective (Free Text): PGY1 ICU Progress Note for Dr. Blair Patient seen and examined this morning at bedside. Patient intubated. ROS unattainable. CCU Objective - Vital Signs / Intake & Output Vital Signs (Last 4 hours): Vital Signs Temp 09/14/17 08:00 98.4 F Intake and Output (Last 8hrs): Intake & Output 09/13/17 09/14/17 09/14/17 22:59 06:59 14:59 Intake Total 258 193 80 Output Total 248 400 Balance 10 - 80 Weight 105 lb Intake: IV 105 25 80 Intake, IV Amount 153 168 Left Antecubital 80 80 Right Antecubital 73 88 Output: Urine 248 400 Urethral (Garcia) 248 400 - Physical Exam Head: Positive for: Atraumatic, Normocephalic Mouth: Positive for: Other (intubated) Respiratory/Chest: Positive for: Rhonchi, Other (intubated). Negative for: Accessory Muscle Use Cardiovascular: Positive for: Regular Rate and Rhythm, Normal S1, S2 Abdomen: Negative for: Tenderness, Distention Lower Extremity: Positive for: Other (SCDs in place). Negative for: CALF TENDERNESS Neurological: Positive for: Other (sedated, intubated) Skin: Positive for: Warm, Dry Psychiatric: Positive for: Other (sedated, intubated) - Medications Active Medications: Active Medications Generic Name Dose Route Start Last Admin Trade Name Freq PRN Reason Stop Dose Admin Acetaminophen 650 mg 09/10/17 17:00 Tylenol 325mg Tab PO Q6 PRN Fever >100.4 F Aspirin 81 mg 09/11/17 10:00 09/14/17 08:59 Ecotrin PO Not Given DAILY GLADYS Dextrose 0 ml 09/10/17 17:21 Dextrose 50% Inj IV STAT PRN Hypoglycemia Protocol Protocol Dextrose 0 gm 09/10/17 17:21 Glutose 15 PO ONCE PRN Hypoglycemia Protocol Protocol Ferrous Sulfate 300 mg 09/12/17 18:00 09/14/17 08:59 Feosol Liq PO Not Given BID GLADYS Glucagon 0 mg 09/10/17 17:21 Glucagen Diagnostic Kit IM STAT PRN Hypoglycemia Protocol Protocol Heparin Sodium (Porcine) 5,000 units 09/12/17 22:00 09/14/17 07:00 Heparin SC 5,000 units Q8 GLADYS Administration Dextrose 1,000 mls @ 0 mls/hr 09/10/17 17:21 Dextrose 5% In Water 1000 Ml IV .Q0M PRN Hypoglycemia Protocol Protocol Per Protocol Furosemide 100 mg/ Sodium 100 mls @ 10 mls/hr 09/13/17 10:00 09/14/17 07:18 Chloride IV Not Given .Q10H GLADYS Protocol 10 MG/HR Propofol 1,000 mg in 100 mls @ 1.429 mls/hr 09/13/17 12:08 09/14/17 07:23 Diprivan IV 30 mcg/kg/min .Q24H PRN 8.573 mls/hr TITRATE PER MD ORDER Titration Protocol 5 MCG/KG/MIN Insulin Aspart 0 unit 09/10/17 22:00 09/14/17 08:25 Novolog SC Not Given ACHS GLADYS Protocol Ondansetron HCl 4 mg 09/10/17 17:00 09/13/17 11:01 Zofran Inj IVP 4 mg Q6 PRN Administration Nausea/Vomiting Pantoprazole Sodium 40 mg 09/11/17 10:00 09/14/17 09:05 Protonix Inj IVP 40 mg DAILY GLADYS Administration Rosuvastatin Calcium 2.5 mg 09/10/17 22:00 09/13/17 23:12 Crestor PO Not Given HS GLADYS Sodium Bicarbonate 650 mg 09/13/17 10:00 09/14/17 08:59 Sodium Bicarbonate Tab PO Not Given TID GLADYS - Patient Studies Lab Studies: Microbiology Studies 09/10/17 15:00 Blood Culture - Preliminary Blood NO GROWTH AFTER 3 DAYS 09/10/17 13:45 Blood Culture - Preliminary Blood NO GROWTH AFTER 3 DAYS 09/13/17 12:07 Gram Stain - Final Trachasp Lab Studies 09/14/17 09/14/17 09/14/17 Range/Units 07:50 06:29 06:29 WBC 9.9 (4.8-10.8) K/uL RBC 4.09 (3.80-5.20) Mil/uL Hgb 9.8 L (11.0-16.0) g/dL Hct 29.9 L (34.0-47.0) % MCV 73.2 L D (81.0-99.0) fL MCH 24.1 L (27.0-31.0) pg MCHC 32.9 L (33.0-37.0) g/dL RDW 17.9 H (11.5-14.5) % Plt Count 213 (130-400) K/uL MPV 9.6 (7.2-11.7) fL Neut % (Auto) 73.5 (50.0-75.0) % Lymph % (Auto) 13.3 L (20.0-40.0) % Starke % (Auto) 12.4 H (0.0-10.0) % Eos % (Auto) 0.0 (0.0-4.0) % Baso % (Auto) 0.8 (0.0-2.0) % Neut # 7.3 H (1.8-7.0) K/uL Lymph # 1.3 (1.0-4.3) K/uL Starke # 1.2 H (0.0-0.8) K/uL Eos # 0.0 (0.0-0.7) K/uL Baso # 0.1 (0.0-0.2) K/uL Puncture Site pCO2 (35-45) mm/Hg pO2 (80-100) mm/Hg HCO3 (21-28) mmol/L ABG pH (7.35-7.45) ABG Total CO2 (22-28) mmol/L ABG O2 Saturation (95-98) % ABG Base Excess (-2.0-3.0) mmol/L ABG Hemoglobin (11.7-17.4) g/dL ABG Carboxyhemoglobin (0.5-1.5) % POC ABG HHb (Measured) (0.0-5.0) % ABG Methemoglobin (0.0-3.0) % Guy Test A-a O2 Difference mm/Hg Respiratory Index Hgb O2 Saturation (95.0-98.0) % Vent Mode Mechanical Rate FiO2 % Tidal Volume PEEP Sodium 145 (132-148) mmol/L Potassium 3.8 (3.6-5.2) mmol/L Chloride 100 (98-107) mmol/L Carbon Dioxide 19 L (22-30) mmol/L Anion Gap 30 H (10-20) BUN 67 H (7-17) mg/dL Creatinine 3.2 H (0.7-1.2) mg/dL Est GFR ( Amer) 17 Est GFR (Non-Af Amer) 14 POC Glucose (mg/dL) 238 H (65-110) mg/dL Random Glucose 192 H (65-105) mg/dL Calcium 8.0 L (8.6-10.4) mg/dl Phosphorus 4.8 H (2.5-4.5) mg/dL Magnesium 2.2 (1.6-2.3) mg/dL Total Bilirubin 0.7 (0.2-1.3) mg/dL AST 89 H (14-36) U/L ALT 124 H (9-52) U/L Alkaline Phosphatase 64 (38-126) U/L Total Protein 6.8 (6.3-8.3) g/dL Albumin 3.5 (3.5-5.0) g/dL Globulin 3.3 (2.2-3.9) gm/dL Albumin/Globulin Ratio 1.1 (1.0-2.1) Procalcitonin (0.19-0.49) NG/ML Stool Occult Blood (NEGATIVE) Urine Immunofixation (Not Detected) Free [place] Light Chains (3.3-19.4) mg/L Free Lambda Light Chain (5.7-26.3) mg/L Free [place]/Lambda Ratio (0.26-1.65) 09/14/17 09/13/17 09/13/17 Range/Units 04:35 21:43 21:38 WBC (4.8-10.8) K/uL RBC (3.80-5.20) Mil/uL Hgb (11.0-16.0) g/dL Hct (34.0-47.0) % MCV (81.0-99.0) fL MCH (27.0-31.0) pg MCHC (33.0-37.0) g/dL RDW (11.5-14.5) % Plt Count (130-400) K/uL MPV (7.2-11.7) fL Neut % (Auto) (50.0-75.0) % Lymph % (Auto) (20.0-40.0) % Starke % (Auto) (0.0-10.0) % Eos % (Auto) (0.0-4.0) % Baso % (Auto) (0.0-2.0) % Neut # (1.8-7.0) K/uL Lymph # (1.0-4.3) K/uL Starke # (0.0-0.8) K/uL Eos # (0.0-0.7) K/uL Baso # (0.0-0.2) K/uL Puncture Site Rb pCO2 23 L (35-45) mm/Hg pO2 231 H (80-100) mm/Hg HCO3 24.3 (21-28) mmol/L ABG pH 7.55 H (7.35-7.45) ABG Total CO2 20.8 L (22-28) mmol/L ABG O2 Saturation 98.0 (95-98) % ABG Base Excess -0.8 (-2.0-3.0) mmol/L ABG Hemoglobin 12.2 (11.7-17.4) g/dL ABG Carboxyhemoglobin 0.1 L (0.5-1.5) % POC ABG HHb (Measured) 2.0 (0.0-5.0) % ABG Methemoglobin 0.1 (0.0-3.0) % Guy Test Na A-a O2 Difference 168.0 mm/Hg Respiratory Index 0.7 Hgb O2 Saturation 97.8 (95.0-98.0) % Vent Mode Prvc Mechanical Rate 18 FiO2 60.0 % Tidal Volume 500 PEEP 5 Sodium (132-148) mmol/L Potassium (3.6-5.2) mmol/L Chloride (98-107) mmol/L Carbon Dioxide (22-30) mmol/L Anion Gap (10-20) BUN (7-17) mg/dL Creatinine (0.7-1.2) mg/dL Est GFR ( Amer) Est GFR (Non-Af Amer) POC Glucose (mg/dL) 228 H (65-110) mg/dL Random Glucose (65-105) mg/dL Calcium (8.6-10.4) mg/dl Phosphorus (2.5-4.5) mg/dL Magnesium (1.6-2.3) mg/dL Total Bilirubin (0.2-1.3) mg/dL AST (14-36) U/L ALT (9-52) U/L Alkaline Phosphatase (38-126) U/L Total Protein (6.3-8.3) g/dL Albumin (3.5-5.0) g/dL Globulin (2.2-3.9) gm/dL Albumin/Globulin Ratio (1.0-2.1) Procalcitonin (0.19-0.49) NG/ML Stool Occult Blood Negative (NEGATIVE) Urine Immunofixation (Not Detected) Free [place] Light Chains (3.3-19.4) mg/L Free Lambda Light Chain (5.7-26.3) mg/L Free [place]/Lambda Ratio (0.26-1.65) 09/13/17 09/13/17 09/13/17 Range/Units 17:54 16:23 13:11 WBC (4.8-10.8) K/uL RBC (3.80-5.20) Mil/uL Hgb (11.0-16.0) g/dL Hct (34.0-47.0) % MCV (81.0-99.0) fL MCH (27.0-31.0) pg MCHC (33.0-37.0) g/dL RDW (11.5-14.5) % Plt Count (130-400) K/uL MPV (7.2-11.7) fL Neut % (Auto) (50.0-75.0) % Lymph % (Auto) (20.0-40.0) % Starke % (Auto) (0.0-10.0) % Eos % (Auto) (0.0-4.0) % Baso % (Auto) (0.0-2.0) % Neut # (1.8-7.0) K/uL Lymph # (1.0-4.3) K/uL Starke # (0.0-0.8) K/uL Eos # (0.0-0.7) K/uL Baso # (0.0-0.2) K/uL Puncture Site Lb pCO2 39 (35-45) mm/Hg pO2 185 H (80-100) mm/Hg HCO3 21.5 (21-28) mmol/L ABG pH 7.34 L (7.35-7.45) ABG Total CO2 22.2 (22-28) mmol/L ABG O2 Saturation 97.4 (95-98) % ABG Base Excess -4.4 L (-2.0-3.0) mmol/L ABG Hemoglobin 8.5 L (11.7-17.4) g/dL ABG Carboxyhemoglobin 0.2 L (0.5-1.5) % POC ABG HHb (Measured) 2.6 (0.0-5.0) % ABG Methemoglobin 0.6 (0.0-3.0) % Guy Test Na A-a O2 Difference 479.0 mm/Hg Respiratory Index 2.6 Hgb O2 Saturation 96.6 (95.0-98.0) % Vent Mode Prvc Mechanical Rate 18 FiO2 100.0 % Tidal Volume 500 PEEP 5 Sodium 143 (132-148) mmol/L Potassium 4.5 (3.6-5.2) mmol/L Chloride 98 (98-107) mmol/L Carbon Dioxide 20 L (22-30) mmol/L Anion Gap 29 H (10-20) BUN 64 H (7-17) mg/dL Creatinine 3.1 H (0.7-1.2) mg/dL Est GFR ( Amer) 17 Est GFR (Non-Af Amer) 14 POC Glucose (mg/dL) 266 H (65-110) mg/dL Random Glucose 223 H (65-105) mg/dL Calcium 8.0 L (8.6-10.4) mg/dl Phosphorus (2.5-4.5) mg/dL Magnesium (1.6-2.3) mg/dL Total Bilirubin 1.0 (0.2-1.3) mg/dL AST 110 H D (14-36) U/L ALT 128 H (9-52) U/L Alkaline Phosphatase 67 (38-126) U/L Total Protein 6.6 (6.3-8.3) g/dL Albumin 4.0 (3.5-5.0) g/dL Globulin 2.6 (2.2-3.9) gm/dL Albumin/Globulin Ratio 1.5 (1.0-2.1) Procalcitonin (0.19-0.49) NG/ML Stool Occult Blood (NEGATIVE) Urine Immunofixation (Not Detected) Free [place] Light Chains (3.3-19.4) mg/L Free Lambda Light Chain (5.7-26.3) mg/L Free [place]/Lambda Ratio (0.26-1.65) 09/13/17 09/13/17 09/11/17 Range/Units 11:39 10:58 18:39 WBC (4.8-10.8) K/uL RBC (3.80-5.20) Mil/uL Hgb (11.0-16.0) g/dL Hct (34.0-47.0) % MCV (81.0-99.0) fL MCH (27.0-31.0) pg MCHC (33.0-37.0) g/dL RDW (11.5-14.5) % Plt Count (130-400) K/uL MPV (7.2-11.7) fL Neut % (Auto) (50.0-75.0) % Lymph % (Auto) (20.0-40.0) % Starke % (Auto) (0.0-10.0) % Eos % (Auto) (0.0-4.0) % Baso % (Auto) (0.0-2.0) % Neut # (1.8-7.0) K/uL Lymph # (1.0-4.3) K/uL Starke # (0.0-0.8) K/uL Eos # (0.0-0.7) K/uL Baso # (0.0-0.2) K/uL Puncture Site pCO2 (35-45) mm/Hg pO2 (80-100) mm/Hg HCO3 (21-28) mmol/L ABG pH (7.35-7.45) ABG Total CO2 (22-28) mmol/L ABG O2 Saturation (95-98) % ABG Base Excess (-2.0-3.0) mmol/L ABG Hemoglobin (11.7-17.4) g/dL ABG Carboxyhemoglobin (0.5-1.5) % POC ABG HHb (Measured) (0.0-5.0) % ABG Methemoglobin (0.0-3.0) % Guy Test A-a O2 Difference mm/Hg Respiratory Index Hgb O2 Saturation (95.0-98.0) % Vent Mode Mechanical Rate FiO2 % Tidal Volume PEEP Sodium (132-148) mmol/L Potassium (3.6-5.2) mmol/L Chloride (98-107) mmol/L Carbon Dioxide (22-30) mmol/L Anion Gap (10-20) BUN (7-17) mg/dL Creatinine (0.7-1.2) mg/dL Est GFR ( Amer) Est GFR (Non-Af Amer) POC Glucose (mg/dL) 219 H (65-110) mg/dL Random Glucose (65-105) mg/dL Calcium (8.6-10.4) mg/dl Phosphorus (2.5-4.5) mg/dL Magnesium (1.6-2.3) mg/dL Total Bilirubin (0.2-1.3) mg/dL AST (14-36) U/L ALT (9-52) U/L Alkaline Phosphatase (38-126) U/L Total Protein (6.3-8.3) g/dL Albumin (3.5-5.0) g/dL Globulin (2.2-3.9) gm/dL Albumin/Globulin Ratio (1.0-2.1) Procalcitonin 0.41 (0.19-0.49) NG/ML Stool Occult Blood (NEGATIVE) Urine Immunofixation (Not Detected) Free [place] Light Chains 55.1 H (3.3-19.4) mg/L Free Lambda Light Chain 34.7 H (5.7-26.3) mg/L Free [place]/Lambda Ratio 1.59 (0.26-1.65) 09/11/17 Range/Units 10:18 WBC (4.8-10.8) K/uL RBC (3.80-5.20) Mil/uL Hgb (11.0-16.0) g/dL Hct (34.0-47.0) % MCV (81.0-99.0) fL MCH (27.0-31.0) pg MCHC (33.0-37.0) g/dL RDW (11.5-14.5) % Plt Count (130-400) K/uL MPV (7.2-11.7) fL Neut % (Auto) (50.0-75.0) % Lymph % (Auto) (20.0-40.0) % Starke % (Auto) (0.0-10.0) % Eos % (Auto) (0.0-4.0) % Baso % (Auto) (0.0-2.0) % Neut # (1.8-7.0) K/uL Lymph # (1.0-4.3) K/uL Starke # (0.0-0.8) K/uL Eos # (0.0-0.7) K/uL Baso # (0.0-0.2) K/uL Puncture Site pCO2 (35-45) mm/Hg pO2 (80-100) mm/Hg HCO3 (21-28) mmol/L ABG pH (7.35-7.45) ABG Total CO2 (22-28) mmol/L ABG O2 Saturation (95-98) % ABG Base Excess (-2.0-3.0) mmol/L ABG Hemoglobin (11.7-17.4) g/dL ABG Carboxyhemoglobin (0.5-1.5) % POC ABG HHb (Measured) (0.0-5.0) % ABG Methemoglobin (0.0-3.0) % Guy Test A-a O2 Difference mm/Hg Respiratory Index Hgb O2 Saturation (95.0-98.0) % Vent Mode Mechanical Rate FiO2 % Tidal Volume PEEP Sodium (132-148) mmol/L Potassium (3.6-5.2) mmol/L Chloride (98-107) mmol/L Carbon Dioxide (22-30) mmol/L Anion Gap (10-20) BUN (7-17) mg/dL Creatinine (0.7-1.2) mg/dL Est GFR ( Amer) Est GFR (Non-Af Amer) POC Glucose (mg/dL) (65-110) mg/dL Random Glucose (65-105) mg/dL Calcium (8.6-10.4) mg/dl Phosphorus (2.5-4.5) mg/dL Magnesium (1.6-2.3) mg/dL Total Bilirubin (0.2-1.3) mg/dL AST (14-36) U/L ALT (9-52) U/L Alkaline Phosphatase (38-126) U/L Total Protein (6.3-8.3) g/dL Albumin (3.5-5.0) g/dL Globulin (2.2-3.9) gm/dL Albumin/Globulin Ratio (1.0-2.1) Procalcitonin (0.19-0.49) NG/ML Stool Occult Blood (NEGATIVE) Urine Immunofixation Not detected (Not Detected) Free [place] Light Chains (3.3-19.4) mg/L Free Lambda Light Chain (5.7-26.3) mg/L Free [place]/Lambda Ratio (0.26-1.65) Laboratory Results - last 24 hr 09/11/17 09/11/17 09/13/17 10:18 18:39 10:58 WBC RBC Hgb Hct MCV MCH MCHC RDW Plt Count MPV Neut % (Auto) Lymph % (Auto) Starke % (Auto) Eos % (Auto) Baso % (Auto) Neut # Lymph # Starke # Eos # Baso # Puncture Site pCO2 pO2 HCO3 ABG pH ABG Total CO2 ABG O2 Saturation ABG Base Excess ABG Hemoglobin ABG Carboxyhemoglobin POC ABG HHb (Measured) ABG Methemoglobin Guy Test A-a O2 Difference Respiratory Index Hgb O2 Saturation Vent Mode Mechanical Rate FiO2 Tidal Volume PEEP Sodium Potassium Chloride Carbon Dioxide Anion Gap BUN Creatinine Est GFR ( Amer) Est GFR (Non-Af Amer) POC Glucose (mg/dL) Random Glucose Calcium Phosphorus Magnesium Total Bilirubin AST ALT Alkaline Phosphatase Total Protein Albumin Globulin Albumin/Globulin Ratio Procalcitonin 0.41 Stool Occult Blood Urine Immunofixation Not detected Free [place] Light Chains 55.1 H Free Lambda Light Chain 34.7 H Free [place]/Lambda Ratio 1.59 09/13/17 09/13/17 09/13/17 11:39 13:11 16:23 WBC RBC Hgb Hct MCV MCH MCHC RDW Plt Count MPV Neut % (Auto) Lymph % (Auto) Star[place] % (Auto) Eos % (Auto) Baso % (Auto) Neut # Lymph # Starke # Eos # Baso # Puncture Site Lb pCO2 39 pO2 185 H HCO3 21.5 ABG pH 7.34 L ABG Total CO2 22.2 ABG O2 Saturation 97.4 ABG Base Excess -4.4 L ABG Hemoglobin 8.5 L ABG Carboxyhemoglobin 0.2 L POC ABG HHb (Measured) 2.6 ABG Methemoglobin 0.6 Guy Test Na A-a O2 Difference 479.0 Respiratory Index 2.6 Hgb O2 Saturation 96.6 Vent Mode Prvc Mechanical Rate 18 FiO2 100.0 Tidal Volume 500 PEEP 5 Sodium Potassium Chloride Carbon Dioxide Anion Gap BUN Creatinine Est GFR ( Amer) Est GFR (Non-Af Amer) POC Glucose (mg/dL) 219 H 266 H Random Glucose Calcium Phosphorus Magnesium Total Bilirubin AST ALT Alkaline Phosphatase Total Protein Albumin Globulin Albumin/Globulin Ratio Procalcitonin Stool Occult Blood Urine Immunofixation Free [place] Light Chains Free Lambda Light Chain Free [place]/Lambda Ratio 09/13/17 09/13/17 09/13/17 17:54 21:38 21:43 WBC RBC Hgb Hct MCV MCH MCHC RDW Plt Count MPV Neut % (Auto) Lymph % (Auto) [place] % (Auto) Eos % (Auto) Baso % (Auto) Neut # Lymph # Starke # Eos # Baso # Puncture Site pCO2 pO2 HCO3 ABG pH ABG Total CO2 ABG O2 Saturation ABG Base Excess ABG Hemoglobin ABG Carboxyhemoglobin POC ABG HHb (Measured) ABG Methemoglobin Guy Test A-a O2 Difference Respiratory Index Hgb O2 Saturation Vent Mode Mechanical Rate FiO2 Tidal Volume PEEP Sodium 143 Potassium 4.5 Chloride 98 Carbon Dioxide 20 L Anion Gap 29 H BUN 64 H Creatinine 3.1 H Est GFR ( Amer) 17 Est GFR (Non-Af Amer) 14 POC Glucose (mg/dL) 228 H Random Glucose 223 H Calcium 8.0 L Phosphorus Magnesium Total Bilirubin 1.0 AST 110 H D ALT 128 H Alkaline Phosphatase 67 Total Protein 6.6 Albumin 4.0 Globulin 2.6 Albumin/Globulin Ratio 1.5 Procalcitonin Stool Occult Blood Negative Urine Immunofixation Free [place] Light Chains Free Lambda Light Chain Free [place]/Lambda Ratio 09/14/17 09/14/17 09/14/17 04:35 06:29 06:29 WBC 9.9 RBC 4.09 Hgb 9.8 L Hct 29.9 L MCV 73.2 L D MCH 24.1 L MCHC 32.9 L RDW 17.9 H Plt Count 213 MPV 9.6 Neut % (Auto) 73.5 Lymph % (Auto) 13.3 L [place]ke % (Auto) 12.4 H Eos % (Auto) 0.0 Baso % (Auto) 0.8 Neut # 7.3 H Lymph # 1.3 Starke # 1.2 H Eos # 0.0 Baso # 0.1 Puncture Site Rb pCO2 23 L pO2 231 H HCO3 24.3 ABG pH 7.55 H ABG Total CO2 20.8 L ABG O2 Saturation 98.0 ABG Base Excess -0.8 ABG Hemoglobin 12.2 ABG Carboxyhemoglobin 0.1 L POC ABG HHb (Measured) 2.0 ABG Methemoglobin 0.1 Guy Test Na A-a O2 Difference 168.0 Respiratory Index 0.7 Hgb O2 Saturation 97.8 Vent Mode Prvc Mechanical Rate 18 FiO2 60.0 Tidal Volume 500 PEEP 5 Sodium 145 Potassium 3.8 Chloride 100 Carbon Dioxide 19 L Anion Gap 30 H BUN 67 H Creatinine 3.2 H Est GFR ( Amer) 17 Est GFR (Non-Af Amer) 14 POC Glucose (mg/dL) Random Glucose 192 H Calcium 8.0 L Phosphorus 4.8 H Magnesium 2.2 Total Bilirubin 0.7 AST 89 H ALT 124 H Alkaline Phosphatase 64 Total Protein 6.8 Albumin 3.5 Globulin 3.3 Albumin/Globulin Ratio 1.1 Procalcitonin Stool Occult Blood Urine Immunofixation Free [place] Light Chains Free Lambda Light Chain Free [place]/Lambda Ratio 09/14/17 07:50 WBC RBC Hgb Hct MCV MCH MCHC RDW Plt Count MPV Neut % (Auto) Lymph % (Auto) [place] % (Auto) Eos % (Auto) Baso % (Auto) Neut # Lymph # [place] # Eos # Baso # Puncture Site pCO2 pO2 HCO3 ABG pH ABG Total CO2 ABG O2 Saturation ABG Base Excess ABG Hemoglobin ABG Carboxyhemoglobin POC ABG HHb (Measured) ABG Methemoglobin Guy Test A-a O2 Difference Respiratory Index Hgb O2 Saturation Vent Mode Mechanical Rate FiO2 Tidal Volume PEEP Sodium Potassium Chloride Carbon Dioxide Anion Gap BUN Creatinine Est GFR ( Amer) Est GFR (Non-Af Amer) POC Glucose (mg/dL) 238 H Random Glucose Calcium Phosphorus Magnesium Total Bilirubin AST ALT Alkaline Phosphatase Total Protein Albumin Globulin Albumin/Globulin Ratio Procalcitonin Stool Occult Blood Urine Immunofixation Free [place] Light Chains Free Lambda Light Chain Free [place]/Lambda Ratio Fingerstick Blood Sugar Results: 228 Review of Systems - Review of Systems Systems not reviewed;Unavailable: Intubated Critical Care Progress Note - Nutrition Nutrition: Nutrition Category Date Time Status Heart Healthy Diet [DIET] Diets 09/10/17 Dinner Active Assessment/Plan - Assessment and Plan (Free Text) Assessment: Patient is an 81 year old female presenting with NSTEMI, acute renal failure and pulmonary edema Plan: Respiratory: Intubated CXR 09/14 - Diminishing right-sided infiltrate. Limited left perihilar infiltrate remaining and possible patchy density at left retrocardiac space. Trace of pleural effusion in question. Nasonex tube is identified placed terminating at the left upper quadrant abdomen. Lasix drip @10mg/hour LE duplex - negative b/l ABG - pH 7.55/pCO2 23/pO2 231/HCO3 24.3 - on vent 500/60/18/5 Vent settings changed to 500/40/18/5 WBC improved to 9.9 from 13.3 Procalcitonin 0.41 Renal: Nephro consult, Dr. Alatorre, help appreciated Cr 3.2 from 3.0 BUN 67 from 64 Urine output ~755 over 24 hours Metabolic Acidosis, worsening - Bicarb 650mg PO TID Renal US - Small size echogenic kidneys suggestive of medical renal disease. No evidence of hydronephrosis. Due to patient now being alkalotic, dialysis will be on hold for the time being Sodium Bicarb discontinued f/u Nephro recs Cardio: Cardio consult, Dr. Dunbar, help appreciated ECHO 09/10 - EF 50-55%, anterior and apical septum hypokinetic; MR mod.-severe ; TR mod.; Pulmonary HTN mod-severe BP controlled EKG 09/12 - no acute ST segment elevations Aspirin 81mg PO daily Crestor 2.5 mg PO HS Trop 0.646/0.485/0.551/1.03 pro-BNP 01657 Neuro: MRI of brain for dizziness - cancelled Propofol drip Endo: ISS Levemir 6 units in AM and HS HgbA1c 7.8 Hem/Onc: Hem/Onc, Dr. Lentz consulted, help appreciated Hgb stable 9.8 Retic 2.2 Prophylactic Care: Heparin 5000u SC q8 Protonix 40mg IVP daily Case discussed with Dr. Johnnie Denton Mary Alice PGY1 <Ismael Blair S - Last Filed: 09/14/17 17:50> CCU Objective - Vital Signs / Intake & Output Vital Signs (Last 4 hours): Vital Signs Temp Pulse Resp BP Pulse Ox 09/14/17 17:00 87 18 100 09/14/17 16:51 86 18 137/53 L 99 09/14/17 16:00 98.2 F 88 18 100 09/14/17 15:51 88 18 134/60 99 09/14/17 15:00 85 18 99 09/14/17 14:51 89 18 131/55 L 99 09/14/17 14:00 89 18 99 09/14/17 13:51 87 18 139/55 L 99 Intake and Output (Last 8hrs): Intake & Output 09/14/17 09/14/17 09/14/17 06:59 14:59 22:59 Intake Total 193 228.0 164.0 Output Total 400 755 200 Balance -207 -527.0 -36.0 Weight 105 lb Intake: IV 25 80 90 Intake, IV Amount 168 148.0 74.0 Left Antecubital 80 80 40 Right Antecubital 88 68.0 34.0 Output: Urine 400 755 200 Urethral (Garcia) 400 755 200 Stool 0 0 Emesis 0 0 - Medications Active Medications: Active Medications Generic Name Dose Route Start Last Admin Trade Name Freq PRN Reason Stop Dose Admin Acetaminophen 650 mg 09/10/17 17:00 Tylenol 325mg Tab PO Q6 PRN Fever >100.4 F Aspirin 81 mg 09/11/17 10:00 09/14/17 08:59 Ecotrin PO Not Given DAILY GLADYS Dextrose 0 ml 09/10/17 17:21 Dextrose 50% Inj IV STAT PRN Hypoglycemia Protocol Protocol Dextrose 0 gm 09/10/17 17:21 Glutose 15 PO ONCE PRN Hypoglycemia Protocol Protocol Ferric Sodium Gluconate Complex 125 mg 09/14/17 11:30 09/14/17 13:08 Ferrlecit IVPB 09/22/17 11:31 125 mg DAILY GLADYS Administration Glucagon 0 mg 09/10/17 17:21 Glucagen Diagnostic Kit IM STAT PRN Hypoglycemia Protocol Protocol Heparin Sodium (Porcine) 5,000 units 09/12/17 22:00 09/14/17 13:09 Heparin SC 5,000 units Q8 GLADYS Administration Dextrose 1,000 mls @ 0 mls/hr 09/10/17 17:21 Dextrose 5% In Water 1000 Ml IV .Q0M PRN Hypoglycemia Protocol Protocol Per Protocol Furosemide 100 mg/ Sodium 100 mls @ 10 mls/hr 09/13/17 10:00 09/14/17 16:08 Chloride IV Not Given .Q10H GLADYS Protocol 10 MG/HR Propofol 1,000 mg in 100 mls @ 1.429 mls/hr 09/13/17 12:08 09/14/17 17:13 Diprivan IV 30 mcg/kg/min .Q24H PRN 8.573 mls/hr TITRATE PER MD ORDER Administration Protocol 5 MCG/KG/MIN Insulin Aspart 0 unit 09/14/17 18:00 Novolog SC Q6H GLADYS Protocol Insulin Detemir 6 unit 09/15/17 10:00 Levemir SC QAM GLADYS Insulin Detemir 6 unit 09/14/17 22:00 Levemir SC HS GLADYS Ondansetron HCl 4 mg 09/10/17 17:00 09/13/17 11:01 Zofran Inj IVP 4 mg Q6 PRN Administration Nausea/Vomiting Pantoprazole Sodium 40 mg 09/11/17 10:00 09/14/17 09:05 Protonix Inj IVP 40 mg DAILY GLADYS Administration Rosuvastatin Calcium 2.5 mg 09/10/17 22:00 09/13/17 23:12 Crestor PO Not Given HS GLADYS - Patient Studies Lab Studies: Microbiology Studies 09/10/17 15:00 Blood Culture - Preliminary Blood NO GROWTH AFTER 3 DAYS 09/10/17 13:45 Blood Culture - Preliminary Blood NO GROWTH AFTER 3 DAYS 09/13/17 12:07 Gram Stain - Final Trachasp Lab Studies 09/14/17 09/14/17 09/14/17 Range/Units 11:13 07:50 06:29 WBC (4.8-10.8) K/uL RBC (3.80-5.20) Mil/uL Hgb (11.0-16.0) g/dL Hct (34.0-47.0) % MCV (81.0-99.0) fL MCH (27.0-31.0) pg MCHC (33.0-37.0) g/dL RDW (11.5-14.5) % Plt Count (130-400) K/uL MPV (7.2-11.7) fL Neut % (Auto) (50.0-75.0) % Lymph % (Auto) (20.0-40.0) % Starke % (Auto) (0.0-10.0) % Eos % (Auto) (0.0-4.0) % Baso % (Auto) (0.0-2.0) % Neut # (1.8-7.0) K/uL Lymph # (1.0-4.3) K/uL Starke # (0.0-0.8) K/uL Eos # (0.0-0.7) K/uL Baso # (0.0-0.2) K/uL Puncture Site pCO2 (35-45) mm/Hg pO2 (80-100) mm/Hg HCO3 (21-28) mmol/L ABG pH (7.35-7.45) ABG Total CO2 (22-28) mmol/L ABG O2 Saturation (95-98) % ABG Base Excess (-2.0-3.0) mmol/L ABG Hemoglobin (11.7-17.4) g/dL ABG Carboxyhemoglobin (0.5-1.5) % POC ABG HHb (Measured) (0.0-5.0) % ABG Methemoglobin (0.0-3.0) % Guy Test A-a O2 Difference mm/Hg Respiratory Index Hgb O2 Saturation (95.0-98.0) % Vent Mode Mechanical Rate FiO2 % Tidal Volume PEEP Sodium 145 (132-148) mmol/L Potassium 3.8 (3.6-5.2) mmol/L Chloride 100 (98-107) mmol/L Carbon Dioxide 19 L (22-30) mmol/L Anion Gap 30 H (10-20) BUN 67 H (7-17) mg/dL Creatinine 3.2 H (0.7-1.2) mg/dL Est GFR ( Amer) 17 Est GFR (Non-Af Amer) 14 POC Glucose (mg/dL) 238 H 238 H (65-110) mg/dL Random Glucose 192 H (65-105) mg/dL Calcium 8.0 L (8.6-10.4) mg/dl Phosphorus 4.8 H (2.5-4.5) mg/dL Magnesium 2.2 (1.6-2.3) mg/dL Total Bilirubin 0.7 (0.2-1.3) mg/dL AST 89 H (14-36) U/L ALT 124 H (9-52) U/L Alkaline Phosphatase 64 (38-126) U/L Total Protein 6.8 (6.3-8.3) g/dL Albumin 3.5 (3.5-5.0) g/dL Globulin 3.3 (2.2-3.9) gm/dL Albumin/Globulin Ratio 1.1 (1.0-2.1) Stool Occult Blood (NEGATIVE) Serum Immunofixation (Not Detected) Urine Immunofixation (Not Detected) 09/14/17 09/14/17 09/13/17 Range/Units 06:29 04:35 21:43 WBC 9.9 (4.8-10.8) K/uL RBC 4.09 (3.80-5.20) Mil/uL Hgb 9.8 L (11.0-16.0) g/dL Hct 29.9 L (34.0-47.0) % MCV 73.2 L D (81.0-99.0) fL MCH 24.1 L (27.0-31.0) pg MCHC 32.9 L (33.0-37.0) g/dL RDW 17.9 H (11.5-14.5) % Plt Count 213 (130-400) K/uL MPV 9.6 (7.2-11.7) fL Neut % (Auto) 73.5 (50.0-75.0) % Lymph % (Auto) 13.3 L (20.0-40.0) % Starke % (Auto) 12.4 H (0.0-10.0) % Eos % (Auto) 0.0 (0.0-4.0) % Baso % (Auto) 0.8 (0.0-2.0) % Neut # 7.3 H (1.8-7.0) K/uL Lymph # 1.3 (1.0-4.3) K/uL Starke # 1.2 H (0.0-0.8) K/uL Eos # 0.0 (0.0-0.7) K/uL Baso # 0.1 (0.0-0.2) K/uL Puncture Site Rb pCO2 23 L (35-45) mm/Hg pO2 231 H (80-100) mm/Hg HCO3 24.3 (21-28) mmol/L ABG pH 7.55 H (7.35-7.45) ABG Total CO2 20.8 L (22-28) mmol/L ABG O2 Saturation 98.0 (95-98) % ABG Base Excess -0.8 (-2.0-3.0) mmol/L ABG Hemoglobin 12.2 (11.7-17.4) g/dL ABG Carboxyhemoglobin 0.1 L (0.5-1.5) % POC ABG HHb (Measured) 2.0 (0.0-5.0) % ABG Methemoglobin 0.1 (0.0-3.0) % Guy Test Na A-a O2 Difference 168.0 mm/Hg Respiratory Index 0.7 Hgb O2 Saturation 97.8 (95.0-98.0) % Vent Mode Prvc Mechanical Rate 18 FiO2 60.0 % Tidal Volume 500 PEEP 5 Sodium (132-148) mmol/L Potassium (3.6-5.2) mmol/L Chloride (98-107) mmol/L Carbon Dioxide (22-30) mmol/L Anion Gap (10-20) BUN (7-17) mg/dL Creatinine (0.7-1.2) mg/dL Est GFR ( Amer) Est GFR (Non-Af Amer) POC Glucose (mg/dL) (65-110) mg/dL Random Glucose (65-105) mg/dL Calcium (8.6-10.4) mg/dl Phosphorus (2.5-4.5) mg/dL Magnesium (1.6-2.3) mg/dL Total Bilirubin (0.2-1.3) mg/dL AST (14-36) U/L ALT (9-52) U/L Alkaline Phosphatase (38-126) U/L Total Protein (6.3-8.3) g/dL Albumin (3.5-5.0) g/dL Globulin (2.2-3.9) gm/dL Albumin/Globulin Ratio (1.0-2.1) Stool Occult Blood Negative (NEGATIVE) Serum Immunofixation (Not Detected) Urine Immunofixation (Not Detected) 09/13/17 09/13/17 09/11/17 Range/Units 21:38 17:54 10:18 WBC (4.8-10.8) K/uL RBC (3.80-5.20) Mil/uL Hgb (11.0-16.0) g/dL Hct (34.0-47.0) % MCV (81.0-99.0) fL MCH (27.0-31.0) pg MCHC (33.0-37.0) g/dL RDW (11.5-14.5) % Plt Count (130-400) K/uL MPV (7.2-11.7) fL Neut % (Auto) (50.0-75.0) % Lymph % (Auto) (20.0-40.0) % Starke % (Auto) (0.0-10.0) % Eos % (Auto) (0.0-4.0) % Baso % (Auto) (0.0-2.0) % Neut # (1.8-7.0) K/uL Lymph # (1.0-4.3) K/uL Starke # (0.0-0.8) K/uL Eos # (0.0-0.7) K/uL Baso # (0.0-0.2) K/uL Puncture Site pCO2 (35-45) mm/Hg pO2 (80-100) mm/Hg HCO3 (21-28) mmol/L ABG pH (7.35-7.45) ABG Total CO2 (22-28) mmol/L ABG O2 Saturation (95-98) % ABG Base Excess (-2.0-3.0) mmol/L ABG Hemoglobin (11.7-17.4) g/dL ABG Carboxyhemoglobin (0.5-1.5) % POC ABG HHb (Measured) (0.0-5.0) % ABG Methemoglobin (0.0-3.0) % Guy Test A-a O2 Difference mm/Hg Respiratory Index Hgb O2 Saturation (95.0-98.0) % Vent Mode Mechanical Rate FiO2 % Tidal Volume PEEP Sodium 143 (132-148) mmol/L Potassium 4.5 (3.6-5.2) mmol/L Chloride 98 (98-107) mmol/L Carbon Dioxide 20 L (22-30) mmol/L Anion Gap 29 H (10-20) BUN 64 H (7-17) mg/dL Creatinine 3.1 H (0.7-1.2) mg/dL Est GFR ( Amer) 17 Est GFR (Non-Af Amer) 14 POC Glucose (mg/dL) 228 H (65-110) mg/dL Random Glucose 223 H (65-105) mg/dL Calcium 8.0 L (8.6-10.4) mg/dl Phosphorus (2.5-4.5) mg/dL Magnesium (1.6-2.3) mg/dL Total Bilirubin 1.0 (0.2-1.3) mg/dL AST 110 H D (14-36) U/L ALT 128 H (9-52) U/L Alkaline Phosphatase 67 (38-126) U/L Total Protein 6.6 (6.3-8.3) g/dL Albumin 4.0 (3.5-5.0) g/dL Globulin 2.6 (2.2-3.9) gm/dL Albumin/Globulin Ratio 1.5 (1.0-2.1) Stool Occult Blood (NEGATIVE) Serum Immunofixation (Not Detected) Urine Immunofixation Not detected (Not Detected) 09/11/17 Range/Units 09:16 WBC (4.8-10.8) K/uL RBC (3.80-5.20) Mil/uL Hgb (11.0-16.0) g/dL Hct (34.0-47.0) % MCV (81.0-99.0) fL MCH (27.0-31.0) pg MCHC (33.0-37.0) g/dL RDW (11.5-14.5) % Plt Count (130-400) K/uL MPV (7.2-11.7) fL Neut % (Auto) (50.0-75.0) % Lymph % (Auto) (20.0-40.0) % Starke % (Auto) (0.0-10.0) % Eos % (Auto) (0.0-4.0) % Baso % (Auto) (0.0-2.0) % Neut # (1.8-7.0) K/uL Lymph # (1.0-4.3) K/uL Starke # (0.0-0.8) K/uL Eos # (0.0-0.7) K/uL Baso # (0.0-0.2) K/uL Puncture Site pCO2 (35-45) mm/Hg pO2 (80-100) mm/Hg HCO3 (21-28) mmol/L ABG pH (7.35-7.45) ABG Total CO2 (22-28) mmol/L ABG O2 Saturation (95-98) % ABG Base Excess (-2.0-3.0) mmol/L ABG Hemoglobin (11.7-17.4) g/dL ABG Carboxyhemoglobin (0.5-1.5) % POC ABG HHb (Measured) (0.0-5.0) % ABG Methemoglobin (0.0-3.0) % Guy Test A-a O2 Difference mm/Hg Respiratory Index Hgb O2 Saturation (95.0-98.0) % Vent Mode Mechanical Rate FiO2 % Tidal Volume PEEP Sodium (132-148) mmol/L Potassium (3.6-5.2) mmol/L Chloride (98-107) mmol/L Carbon Dioxide (22-30) mmol/L Anion Gap (10-20) BUN (7-17) mg/dL Creatinine (0.7-1.2) mg/dL Est GFR ( Amer) Est GFR (Non-Af Amer) POC Glucose (mg/dL) (65-110) mg/dL Random Glucose (65-105) mg/dL Calcium (8.6-10.4) mg/dl Phosphorus (2.5-4.5) mg/dL Magnesium (1.6-2.3) mg/dL Total Bilirubin (0.2-1.3) mg/dL AST (14-36) U/L ALT (9-52) U/L Alkaline Phosphatase (38-126) U/L Total Protein (6.3-8.3) g/dL Albumin (3.5-5.0) g/dL Globulin (2.2-3.9) gm/dL Albumin/Globulin Ratio (1.0-2.1) Stool Occult Blood (NEGATIVE) Serum Immunofixation Detected H (Not Detected) Urine Immunofixation (Not Detected) Laboratory Results - last 24 hr 09/11/17 09/11/17 09/13/17 09:16 10:18 17:54 WBC RBC Hgb Hct MCV MCH MCHC RDW Plt Count MPV Neut % (Auto) Lymph % (Auto) Starke % (Auto) Eos % (Auto) Baso % (Auto) Neut # Lymph # Starke # Eos # Baso # Puncture Site pCO2 pO2 HCO3 ABG pH ABG Total CO2 ABG O2 Saturation ABG Base Excess ABG Hemoglobin ABG Carboxyhemoglobin POC ABG HHb (Measured) ABG Methemoglobin Guy Test A-a O2 Difference Respiratory Index Hgb O2 Saturation Vent Mode Mechanical Rate FiO2 Tidal Volume PEEP Sodium 143 Potassium 4.5 Chloride 98 Carbon Dioxide 20 L Anion Gap 29 H BUN 64 H Creatinine 3.1 H Est GFR ( Amer) 17 Est GFR (Non-Af Amer) 14 POC Glucose (mg/dL) Random Glucose 223 H Calcium 8.0 L Phosphorus Magnesium Total Bilirubin 1.0 AST 110 H D ALT 128 H Alkaline Phosphatase 67 Total Protein 6.6 Albumin 4.0 Globulin 2.6 Albumin/Globulin Ratio 1.5 Stool Occult Blood Serum Immunofixation Detected H Urine Immunofixation Not detected 09/13/17 09/13/17 09/14/17 21:38 21:43 04:35 WBC RBC Hgb Hct MCV MCH MCHC RDW Plt Count MPV Neut % (Auto) Lymph % (Auto) Starke % (Auto) Eos % (Auto) Baso % (Auto) Neut # Lymph # Starke # Eos # Baso # Puncture Site Rb pCO2 23 L pO2 231 H HCO3 24.3 ABG pH 7.55 H ABG Total CO2 20.8 L ABG O2 Saturation 98.0 ABG Base Excess -0.8 ABG Hemoglobin 12.2 ABG Carboxyhemoglobin 0.1 L POC ABG HHb (Measured) 2.0 ABG Methemoglobin 0.1 Guy Test Na A-a O2 Difference 168.0 Respiratory Index 0.7 Hgb O2 Saturation 97.8 Vent Mode Prvc Mechanical Rate 18 FiO2 60.0 Tidal Volume 500 PEEP 5 Sodium Potassium Chloride Carbon Dioxide Anion Gap BUN Creatinine Est GFR ( Amer) Est GFR (Non-Af Amer) POC Glucose (mg/dL) 228 H Random Glucose Calcium Phosphorus Magnesium Total Bilirubin AST ALT Alkaline Phosphatase Total Protein Albumin Globulin Albumin/Globulin Ratio Stool Occult Blood Negative Serum Immunofixation Urine Immunofixation 09/14/17 09/14/17 09/14/17 06:29 06:29 07:50 WBC 9.9 RBC 4.09 Hgb 9.8 L Hct 29.9 L MCV 73.2 L D MCH 24.1 L MCHC 32.9 L RDW 17.9 H Plt Count 213 MPV 9.6 Neut % (Auto) 73.5 Lymph % (Auto) 13.3 L Starke % (Auto) 12.4 H Eos % (Auto) 0.0 Baso % (Auto) 0.8 Neut # 7.3 H Lymph # 1.3 Starke # 1.2 H Eos # 0.0 Baso # 0.1 Puncture Site pCO2 pO2 HCO3 ABG pH ABG Total CO2 ABG O2 Saturation ABG Base Excess ABG Hemoglobin ABG Carboxyhemoglobin POC ABG HHb (Measured) ABG Methemoglobin Guy Test A-a O2 Difference Respiratory Index Hgb O2 Saturation Vent Mode Mechanical Rate FiO2 Tidal Volume PEEP Sodium 145 Potassium 3.8 Chloride 100 Carbon Dioxide 19 L Anion Gap 30 H BUN 67 H Creatinine 3.2 H Est GFR ( Amer) 17 Est GFR (Non-Af Amer) 14 POC Glucose (mg/dL) 238 H Random Glucose 192 H Calcium 8.0 L Phosphorus 4.8 H Magnesium 2.2 Total Bilirubin 0.7 AST 89 H ALT 124 H Alkaline Phosphatase 64 Total Protein 6.8 Albumin 3.5 Globulin 3.3 Albumin/Globulin Ratio 1.1 Stool Occult Blood Serum Immunofixation Urine Immunofixation 09/14/17 11:13 WBC RBC Hgb Hct MCV MCH MCHC RDW Plt Count MPV Neut % (Auto) Lymph % (Auto) Starke % (Auto) Eos % (Auto) Baso % (Auto) Neut # Lymph # Starke # Eos # Baso # Puncture Site pCO2 pO2 HCO3 ABG pH ABG Total CO2 ABG O2 Saturation ABG Base Excess ABG Hemoglobin ABG Carboxyhemoglobin POC ABG HHb (Measured) ABG Methemoglobin Guy Test A-a O2 Difference Respiratory Index Hgb O2 Saturation Vent Mode Mechanical Rate FiO2 Tidal Volume PEEP Sodium Potassium Chloride Carbon Dioxide Anion Gap BUN Creatinine Est GFR ( Amer) Est GFR (Non-Af Amer) POC Glucose (mg/dL) 238 H Random Glucose Calcium Phosphorus Magnesium Total Bilirubin AST ALT Alkaline Phosphatase Total Protein Albumin Globulin Albumin/Globulin Ratio Stool Occult Blood Serum Immunofixation Urine Immunofixation Critical Care Progress Note - Nutrition Nutrition: Nutrition Category Date Time Status Heart Healthy Diet [DIET] Diets 09/10/17 Dinner Active Attending/Attestation - Attestation I have personally seen and examined this patient.: Yes I have fully participated in the care of the patient.: Yes I have reviewed all pertinent clinical information: Yes Notes (Text): 09/14/17 17:49 pt seen and examined in the intensive care unit. Remained intubated on ventilatory support Improving oxygenation and chest x-ray noted Reasonable urine output Continue Lasix drip Case discussed with nephrology No plan for dialysis
--- NOTE | 2017-09-14 11:40 | CP.PCM.PN ---
Subjective - Date & Time of Evaluation Date of Evaluation: 09/14/17 Time of Evaluation: 11:38 - Subjective Subjective: Now intubated, sedated On lasix gttt 10 mg/h HW=939ha this AM CXR with sl improvement in CHF creat remains 3.2 Renal US consistent with CKD Spoke with family- will consider dialysis if no improvement Objective - Vital Signs/Intake and Output Vital Signs (last 24 hours): Temp Pulse Resp BP Pulse Ox 98.4 F 88 18 128/46 L 98 09/14/17 08:00 09/14/17 10:51 09/14/17 10:51 09/14/17 11:06 09/14/17 10:51 Intake and Output: 09/14/17 09/14/17 06:59 18:59 Intake Total 361 154.0 Output Total 550 430 Balance -189 -276.0 - Medications Medications: Current Medications Acetaminophen (Tylenol 325mg Tab) 650 mg PO Q6 PRN PRN Reason: Fever >100.4 F Aspirin (Ecotrin) 81 mg PO DAILY [facility] Last Admin: 09/14/17 08:59 Dose: Not Given Dextrose (Dextrose 50% Inj) 0 ml IV STAT PRN; Protocol PRN Reason: Hypoglycemia Protocol Dextrose (Glutose 15) 0 gm PO ONCE PRN; Protocol PRN Reason: Hypoglycemia Protocol Ferric Sodium Gluconate Complex (Ferrlecit) 125 mg IVPB DAILY [facility] Stop: 09/22/17 11:31 Glucagon (Glucagen Diagnostic Kit) 0 mg IM STAT PRN; Protocol PRN Reason: Hypoglycemia Protocol Heparin Sodium (Porcine) (Heparin) 5,000 units SC Q8 [facility] Last Admin: 09/14/17 07:00 Dose: 5,000 units Dextrose (Dextrose 5% In Water 1000 Ml) 1,000 mls @ 0 mls/hr IV .Q0M PRN; Protocol; Per Protocol PRN Reason: Hypoglycemia Protocol Furosemide 100 mg/ Sodium (Chloride) 100 mls @ 10 mls/hr IV .Q10H [facility]; 10 MG/HR PRN Reason: Protocol Last Admin: 09/14/17 11:06 Dose: 10 mls/hr Propofol (Diprivan) 1,000 mg in 100 mls @ 1.429 mls/hr IV .Q24H PRN; Protocol; 5 MCG/KG/MIN PRN Reason: TITRATE PER MD ORDER Last Titration: 09/14/17 07:23 Dose: 30 mcg/kg/min, 8.573 mls/hr Insulin Aspart (Novolog) 0 unit SC ACHS [facility] PRN Reason: Protocol Last Admin: 09/14/17 11:07 Dose: Not Given Ondansetron HCl (Zofran Inj) 4 mg IVP Q6 PRN PRN Reason: Nausea/Vomiting Last Admin: 09/13/17 11:01 Dose: 4 mg Pantoprazole Sodium (Protonix Inj) 40 mg IVP DAILY [facility] Last Admin: 09/14/17 09:05 Dose: 40 mg Rosuvastatin Calcium (Crestor) 2.5 mg PO HS [facility] Last Admin: 09/13/17 23:12 Dose: Not Given - Labs Labs: 09/14/17 06:29 09/14/17 06:29 PT 10.3 SECONDS (9.7-12.2) 09/10/17 13:52 INR 0.9 09/10/17 13:52 APTT 34 SECONDS (21-34) 09/10/17 13:52 - Constitutional Appears: Non-toxic, Chronically Ill - Head Exam Head Exam: ATRAUMATIC, NORMAL INSPECTION - Eye Exam Eye Exam: EOMI, Normal appearance - Neck Exam Neck Exam: Normal Inspection. absent: Tenderness - Respiratory Exam Respiratory Exam: Rhonchi, Respiratory Distress - Cardiovascular Exam Cardiovascular Exam: REGULAR RHYTHM, +S1 - GI/Abdominal Exam GI & Abdominal Exam: Soft. absent: Tenderness - Extremities Exam Extremities Exam: Normal Inspection. absent: Tenderness - Neurological Exam Neurological Exam: Altered - Skin Skin Exam: Dry, Warm Assessment and Plan (1) BERYL (acute kidney injury) Status: Acute (2) CHF (congestive heart failure) Status: Acute (3) Chronic hemorrhagic anemia Status: Acute (4) Elevated brain natriuretic peptide (BNP) level Status: Acute (5) Elevated troponin I level Status: Acute (6) Non-STEMI (non-ST elevated myocardial infarction) Status: Acute (7) Transient hypotension Status: Acute (8) CKD (chronic kidney disease) stage 4, GFR 15-29 ml/min Status: Acute - Assessment and Plan (Free Text) Plan: lasix gtt serial chemistries if no improvement can proceed to dialysis
--- NOTE | 2017-09-14 11:51 | CP.PCM.PN ---
<Rosa Elena Perdue DO - Last Filed: 09/14/17 13:27> Subjective - Date & Time of Evaluation Date of Evaluation: 09/14/17 Time of Evaluation: 13:27 - Subjective Subjective: Progress note for Dr. Lentz Patient seen and examined. Patient currently intubated, ROS unobtainable. Objective - Vital Signs/Intake and Output Vital Signs (last 24 hours): Temp Pulse Resp BP Pulse Ox 98.4 F 88 18 128/46 L 98 09/14/17 08:00 09/14/17 10:51 09/14/17 10:51 09/14/17 11:06 09/14/17 10:51 Intake and Output: 09/14/17 09/14/17 06:59 18:59 Intake Total 361 154.0 Output Total 550 430 Balance -189 -276.0 - Medications Medications: Current Medications Acetaminophen (Tylenol 325mg Tab) 650 mg PO Q6 PRN PRN Reason: Fever >100.4 F Aspirin (Ecotrin) 81 mg PO DAILY [facility] Last Admin: 09/14/17 08:59 Dose: Not Given Dextrose (Dextrose 50% Inj) 0 ml IV STAT PRN; Protocol PRN Reason: Hypoglycemia Protocol Dextrose (Glutose 15) 0 gm PO ONCE PRN; Protocol PRN Reason: Hypoglycemia Protocol Ferric Sodium Gluconate Complex (Ferrlecit) 125 mg IVPB DAILY [facility] Stop: 09/22/17 11:31 Glucagon (Glucagen Diagnostic Kit) 0 mg IM STAT PRN; Protocol PRN Reason: Hypoglycemia Protocol Heparin Sodium (Porcine) (Heparin) 5,000 units SC Q8 [facility] Last Admin: 09/14/17 07:00 Dose: 5,000 units Dextrose (Dextrose 5% In Water 1000 Ml) 1,000 mls @ 0 mls/hr IV .Q0M PRN; Protocol; Per Protocol PRN Reason: Hypoglycemia Protocol Furosemide 100 mg/ Sodium (Chloride) 100 mls @ 10 mls/hr IV .Q10H [facility]; 10 MG/HR PRN Reason: Protocol Last Admin: 09/14/17 11:06 Dose: 10 mls/hr Propofol (Diprivan) 1,000 mg in 100 mls @ 1.429 mls/hr IV .Q24H PRN; Protocol; 5 MCG/KG/MIN PRN Reason: TITRATE PER MD ORDER Last Titration: 09/14/17 07:23 Dose: 30 mcg/kg/min, 8.573 mls/hr Insulin Aspart (Novolog) 0 unit SC ACHS [facility] PRN Reason: Protocol Last Admin: 09/14/17 11:07 Dose: Not Given Ondansetron HCl (Zofran Inj) 4 mg IVP Q6 PRN PRN Reason: Nausea/Vomiting Last Admin: 09/13/17 11:01 Dose: 4 mg Pantoprazole Sodium (Protonix Inj) 40 mg IVP DAILY [facility] Last Admin: 09/14/17 09:05 Dose: 40 mg Rosuvastatin Calcium (Crestor) 2.5 mg PO HS [facility] Last Admin: 09/13/17 23:12 Dose: Not Given - Labs Labs: 09/14/17 06:29 09/14/17 06:29 PT 10.3 SECONDS (9.7-12.2) 09/10/17 13:52 INR 0.9 09/10/17 13:52 APTT 34 SECONDS (21-34) 09/10/17 13:52 - Head Exam Head Exam: ATRAUMATIC, NORMOCEPHALIC - ENT Exam Additional comments: ETT in place - Respiratory Exam Respiratory Exam: Rales, Rhonchi - Cardiovascular Exam Cardiovascular Exam: +S1, +S2 - GI/Abdominal Exam GI & Abdominal Exam: Soft - Extremities Exam Additional comments: SCDs in place - Neurological Exam Additional comments: sedated - Skin Skin Exam: Warm Assessment and Plan - Assessment and Plan (Free Text) Assessment: Anemia reticulocyte index 0.63 with hypoproliferative erythroid response from iron deficiency and element of anemia of renal failure low concern for infectious etiology so will start IV iron for 7 days transfusion support prn Plan as per Dr. Lentz <Neil Lentz - Last Filed: 09/15/17 16:09> Objective - Vital Signs/Intake and Output Vital Signs (last 24 hours): Temp Pulse Resp BP Pulse Ox 99.2 F 106 H 22 117/53 L 98 09/15/17 15:11 09/15/17 15:00 09/15/17 15:00 09/15/17 15:36 09/15/17 15:00 Intake and Output: 09/15/17 09/15/17 06:59 18:59 Intake Total 615.4 364.2 Output Total 1000 595 Balance -384.6 -230.8 - Medications Medications: Current Medications Acetaminophen (Tylenol 325mg Tab) 650 mg PO Q6 PRN PRN Reason: Fever >100.4 F Last Admin: 09/15/17 13:14 Dose: 650 mg Aspirin (Ecotrin) 81 mg PO DAILY [facility] Last Admin: 09/15/17 10:02 Dose: 81 mg Dextrose (Dextrose 50% Inj) 0 ml IV STAT PRN; Protocol PRN Reason: Hypoglycemia Protocol Dextrose (Glutose 15) 0 gm PO ONCE PRN; Protocol PRN Reason: Hypoglycemia Protocol Epoetin Sarath (Procrit) 10,000 unit SC TTS [facility] Last Admin: 09/15/17 10:30 Dose: 10,000 unit Ferric Sodium Gluconate Complex (Ferrlecit) 125 mg IVPB DAILY [facility] Stop: 09/22/17 11:31 Last Admin: 09/15/17 10:30 Dose: 125 mg Glucagon (Glucagen Diagnostic Kit) 0 mg IM STAT PRN; Protocol PRN Reason: Hypoglycemia Protocol Heparin Sodium (Porcine) (Heparin) 5,000 units SC Q8 [facility] Last Admin: 09/15/17 13:17 Dose: 5,000 units Dextrose (Dextrose 5% In Water 1000 Ml) 1,000 mls @ 0 mls/hr IV .Q0M PRN; Protocol; Per Protocol PRN Reason: Hypoglycemia Protocol Furosemide 100 mg/ Sodium (Chloride) 100 mls @ 10 mls/hr IV .Q10H [facility]; 10 MG/HR PRN Reason: Protocol Last Admin: 09/15/17 15:36 Dose: 10 mls/hr Propofol (Diprivan) 1,000 mg in 100 mls @ 1.429 mls/hr IV .Q24H PRN; Protocol; 5 MCG/KG/MIN PRN Reason: TITRATE PER MD ORDER Last Admin: 09/15/17 05:00 Dose: 30 mcg/kg/min, 8.573 mls/hr Vancomycin HCl (Vancocin 750mg/D5w 150 Ml) 150 mls @ 100 mls/hr IV DAILY [facility] Stop: 09/20/17 15:16 Last Admin: 09/15/17 15:36 Dose: 100 mls/hr Insulin Aspart (Novolog) 0 unit SC Q6H [facility] PRN Reason: Protocol Last Admin: 09/15/17 13:16 Dose: 2 unit Insulin Detemir (Levemir) 6 unit SC QAM [facility] Last Admin: 09/15/17 10:02 Dose: 6 unit Insulin Detemir (Levemir) 6 unit SC HS [facility] Last Admin: 09/14/17 21:16 Dose: 6 unit Ondansetron HCl (Zofran Inj) 4 mg IVP Q6 PRN PRN Reason: Nausea/Vomiting Last Admin: 09/13/17 11:01 Dose: 4 mg Pantoprazole Sodium (Protonix Inj) 40 mg IVP DAILY [facility] Last Admin: 09/15/17 10:03 Dose: 40 mg Rosuvastatin Calcium (Crestor) 2.5 mg PO [facility] Last Admin: 09/14/17 21:17 Dose: 2.5 mg - Labs Labs: 09/15/17 06:26 09/15/17 06:26 PT 10.3 SECONDS (9.7-12.2) 09/10/17 13:52 INR 0.9 09/10/17 13:52 APTT 34 SECONDS (21-34) 09/10/17 13:52 Assessment and Plan - Assessment and Plan (Free Text) Assessment: Pt seen and examined, agree with residents note. Iron deficiency anemia on IV iron.
--- NOTE | 2017-09-14 13:03 | CP.PCM.PN ---
Subjective - Date & Time of Evaluation Date of Evaluation: 09/14/17 Time of Evaluation: 13:00 - Subjective Subjective: Subjective: Hospitalist Progress Note Patient was seen and examined at 1:00 PM 09/14/17 ICU Bed 6 Currently upon FULL ROS is not possible as patient is intubated - Head Exam Head Exam: NORMAL INSPECTION - Eye Exam Eye Exam: Pupils are round and reactive to light. absent: Nystagmus, Scleral icterus - ENT Exam ENT Exam: Mucous Membranes Moist - Respiratory Exam Respiratory Exam: Bibasilar Inspiratory Crackles. absent: Wheezes, Stridor - Cardiovascular Exam Cardiovascular Exam: REGULAR RHYTHM, +S1, +S2 - GI/Abdominal Exam GI & Abdominal Exam: Soft, Normal Bowel Sounds. absent: Distended, Firm, Guarding, Rigid, Tenderness, Rebound - Extremities Exam Extremities Exam: Normal Capillary Refill. absent: Pedal Edema, Tenderness - Back Exam Back Exam: absent: CVA tenderness (L), CVA tenderness (R) - Neurological Exam Neurological Exam: Alert, Awake, Oriented x3 - Skin Skin Exam: Dry, Intact, Normal Color, Warm Additional comments: Assessment and Plan (1) Acute Renal Failure Assessment & Plan: * Nephrology Dr. Chowdhury/Landry is following * BUN/Cr worsened and patient and patient is on trial of Lasix 09/12/17. If there is continued lack of improvement then patient will need HD Status: Acute (2) Grade I Diastolic Heart Failure Echocardiogram 09/10/17 showed EF of 58% with hypokinetic anterior and apical septum and Grade I Abnormal Relaxation Patter. Moderate Tricuspid regurgitation and moderate to severe pulmonary HTN Elevated ProBNP upon admission Chest X Ray 09/13/17 showed increased pulmonary vascular congestion Chest X Ray 09/14/17 showed decreased right side infiltrate and limited left perihilar infiltrate remaining Status: Acute (3) Acute Respiratory Failure Likely secondary to the increased pulmonary vascular congestion from the blood transfusions on 09/12/17, Acute Renal Failure, and Diastolic Heart Failure Patient intubated and placed on vent by ICU team 09/13/17 Status: Acute (4) Leukocytosis Currently at 9.9 NO fevers Blood Culture 09/10/17 is Negative To Date Urine Culture 09/10/17 showed multiple species therefore another Urine Culture ordered 09/13/17 Could be reactive therefore will hold off on antibiotic for now and follow up ProCalcitonin Consider CT Chest if this worsens to rule out underlying pneumonia Status: Acute (5) Elevated Troponin Assessment & Plan: * Cardiology Dr. Dunbar on board-->help appreciated * Elevated Troponin: 0.6460-->0.4850-->0.5510 * On Aspirin 81mg PO daily Status: Acute (6) Diabetes 2 Assessment & Plan: HgBa1c: 7.8 Hypoglycemia protocol Crestor 2.5mg PO qHS Off metformin, glipizide on admission given acute renal failure Started on Levemir 6 units QAM and HS 09/14/17 based upon 24 hours ISS requirement Aspart sliding scale Status: Chronic (7) Hypertension Assessment & Plan: Off anti-hypertensives (Hydralazine, Metoprolol XL, Amlodipine, Losartan/HCTZ, Lasix, Imdur) because of hypotension upon admission Currently stable Status: Chronic (8) Anemia Assessment & Plan: retic count: 2.2 Iron: 44 TIBC: 220 iron saturation: 20 Ferritin: 31 Feosol 300 mg liquid PO 2x/day Occult blood negative upon admission HgB dropped to 7.0 and 2 units PRBC transfused 09/12/17. HgB/Hct is stable. F/U KARON, SPEP, Serum Immunofixation F/U further recommendations from Heme/Onc Dr. Toña Lentz Stool Occult Blood 09/10/17 and 09/13/17 are negative Status: Chronic (9) Polypharmacy Assessment & Plan: Held home medications on admission including PO diabetic and diuretic medications given acute renal failure Status: Acute (10) Vertigo Assessment & Plan: CT Head: negative on admission Patient has seen previously Dr. 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 Kareem Wiggins D.O. Objective - Vital Signs/Intake and Output Vital Signs (last 24 hours): Temp Pulse Resp BP Pulse Ox 98.2 F 93 H 17 137/50 L 99 09/14/17 12:00 09/14/17 12:00 09/14/17 12:00 09/14/17 11:51 09/14/17 12:00 Intake and Output: 09/14/17 09/14/17 06:59 18:59 Intake Total 361 191.0 Output Total 550 605 Balance -189 -414.0 - Medications Medications: Current Medications Acetaminophen (Tylenol 325mg Tab) 650 mg PO Q6 PRN PRN Reason: Fever >100.4 F Aspirin (Ecotrin) 81 mg PO DAILY [facility] Last Admin: 09/14/17 08:59 Dose: Not Given Dextrose (Dextrose 50% Inj) 0 ml IV STAT PRN; Protocol PRN Reason: Hypoglycemia Protocol Dextrose (Glutose 15) 0 gm PO ONCE PRN; Protocol PRN Reason: Hypoglycemia Protocol Ferric Sodium Gluconate Complex (Ferrlecit) 125 mg IVPB DAILY [facility] Stop: 09/22/17 11:31 Glucagon (Glucagen Diagnostic Kit) 0 mg IM STAT PRN; Protocol PRN Reason: Hypoglycemia Protocol Heparin Sodium (Porcine) (Heparin) 5,000 units SC Q8 [facility] Last Admin: 09/14/17 07:00 Dose: 5,000 units Dextrose (Dextrose 5% In Water 1000 Ml) 1,000 mls @ 0 mls/hr IV .Q0M PRN; Protocol; Per Protocol PRN Reason: Hypoglycemia Protocol Furosemide 100 mg/ Sodium (Chloride) 100 mls @ 10 mls/hr IV .Q10H [facility]; 10 MG/HR PRN Reason: Protocol Last Admin: 09/14/17 11:06 Dose: 10 mls/hr Propofol (Diprivan) 1,000 mg in 100 mls @ 1.429 mls/hr IV .Q24H PRN; Protocol; 5 MCG/KG/MIN PRN Reason: TITRATE PER MD ORDER Last Titration: 09/14/17 07:23 Dose: 30 mcg/kg/min, 8.573 mls/hr Insulin Aspart (Novolog) 0 unit SC ACHS [facility] PRN Reason: Protocol Last Admin: 09/14/17 11:07 Dose: Not Given Ondansetron HCl (Zofran Inj) 4 mg IVP Q6 PRN PRN Reason: Nausea/Vomiting Last Admin: 09/13/17 11:01 Dose: 4 mg Pantoprazole Sodium (Protonix Inj) 40 mg IVP DAILY [facility] Last Admin: 09/14/17 09:05 Dose: 40 mg Rosuvastatin Calcium (Crestor) 2.5 mg PO HS [facility] Last Admin: 09/13/17 23:12 Dose: Not Given - Labs Labs: 09/14/17 06:29 09/14/17 06:29 PT 10.3 SECONDS (9.7-12.2) 09/10/17 13:52 INR 0.9 09/10/17 13:52 APTT 34 SECONDS (21-34) 09/10/17 13:52
[2017-09-14] MEDS: Ferric Sodium Gluconat Complex 62.5 mg/5 ml Vial IVPB SCH (13:08)
--- NOTE | 2017-09-14 16:41 | PN ---
SUBJECTIVE: The patient is on the ventilator. No reported ventricular arrhythmia. She was in sinus tachycardia yesterday. No reported hypotension. PHYSICAL EXAMINATION: VITAL SIGNS: Blood pressure 137/50, heart rate 93, temperature 98.2, respirations 17. HEENT: Pale conjunctivae. CHEST: Bilateral rhonchi diffusely. HEART: S1 and S2 regular. ABDOMEN: Soft. EXTREMITIES: No edema. Chest x-ray revealed right lower lobe and right upper lobe alveolar infiltrate. LABORATORY DATA: Hemoglobin and hematocrit 9.8 and 29.9, white count and platelet count are within normal limits. Today's BUN and creatinine are 67 and 3.2 respectively. Glucose is 192. ASSESSMENT: 1. Acute respiratory failure. 2. Consider non-ST elevation myocardial infraction. 3. Segmental hypokinesis of the septum and apex consistent with underlying coronary artery disease. 4. Improved metabolic acidosis. 5. Acute renal insufficiency. 6. Anemia. RECOMMENDATIONS: Continue current Crestor at 2.5 mg once a day, aspirin 81 mg once a day, subcutaneous heparin 5000 units q.8 hours, continue Lasix drip. The case was discussed with the family at the bedside. Any further cardiac workup will await until more clinically stable. Elvis Dunbar MD
[2017-09-14] MEDS: Insulin Detemir 100 units/ml Vial (Levemir) SC SCH (21:16)
[2017-09-14] MEDS: Rosuvastatin Calcium 2.5 mg Tab PO SCH (21:17)
[2017-09-15 00:51] LABS: HEPARIN-IND PLATELET AB Negative (Negative)
[2017-09-15 01:38] LABS: BETA 1 GLOBULIN 0.3 g/dL (0.4-0.6); BETA 2 GLOBULIN 0.3 g/dL (0.2-0.5); GAMMA GLOBULIN 0.8 g/dL (0.8-1.7)
[2017-09-15] MEDS: Propofol 10 mg/ml 1,000 MG/100 ML VIAL IV PRN (05:00)
[2017-09-15 05:47] LABS: ABG MECHANICAL RATE 18; ARTERIAL BLOOD GAS MODE PRVC; ARTERIAL BLOOD HGB O2 SAT 95.9 % (95.0-98.0); ATERIAL BLOOD GAS PEEP 5; CARBOXYHEMOGLOBIN 0.8 % (0.5-1.5); DRAW SITE LB; HHB 3.1 % (0.0-5.0); METHEMOGLOBIN 0.2 % (0.0-3.0)
[2017-09-15 06:38] LABS: BASO % 0.6 % (0.0-2.0); HEMATOCRIT 30.4 % (34.0-47.0); LYMPH # 1.3 K/uL (1.0-4.3); LYMPH % 16.1 % (20.0-40.0); MEAN CELL VOLUME 73.6 fL (81.0-99.0); MEAN CORPUSCULAR HEMOGLOBIN 23.6 pg (27.0-31.0); MEAN CORPUSCULAR HGB CONC 32.1 g/dL (33.0-37.0); MEAN PLATELET VOLUME 9.5 fL (7.2-11.7); MONO # 0.8 K/uL (0.0-0.8); MONO % 9.8 % (0.0-10.0); NRBC % 0.2 % (0.0-2.0); RED CELL DISTRIBUTION WIDTH 18.2 % (11.5-14.5); WHITE BLOOD COUNT 8.3 K/uL (4.8-10.8)
[2017-09-15] MEDS: Furosemide 100 MG in Sodium Chloride 0.9% 90 ML IV SCH ×3 (06:53→22:00)
[2017-09-15] MEDS: (Novolog) Insulin Aspart, Recombinant 100 u/ml 10 ml vial SC SCH ×4 (06:54→18:34)
[2017-09-15 06:55] LABS: ALB/GLOB RATIO 0.9 (1.0-2.1); CALCIUM 8.3 mg/dl (8.6-10.4); POTASSIUM 2.9 mmol/L (3.6-5.2); TOTAL PROTEIN 6.6 g/dL (6.3-8.3)
[2017-09-15] MEDS ORDERED: Potassium Chloride 20 mEq/15 ml LIQ UD PO STA (07:20)
--- NOTE | 2017-09-15 08:40 | RAD ---
HISTORY: intubated COMPARISON: 09/14/2017 FINDINGS: LUNGS: Vague opacity upper right lung has decreased in extent when compared to prior examination. No other opacity is seen elsewhere. PLEURA: No significant pleural effusion identified, no pneumothorax apparent. CARDIOVASCULAR: Normal heart size. ET tube and NG tube unchanged. OSSEOUS STRUCTURES: No significant abnormalities. VISUALIZED UPPER ABDOMEN: Normal. OTHER FINDINGS: None. IMPRESSION: Decreasing density of right upper lobe opacity. Right basilar opacity is no longer appreciable. No other abnormal opacity appreciated. Lines and tubes unchanged.
--- NOTE | 2017-09-15 09:09 | CP.PCM.PN ---
Subjective - Date & Time of Evaluation Date of Evaluation: 09/15/17 Time of Evaluation: 09:05 - Subjective Subjective: Remains on vent, sedated Good response to lasix gtt- UO-1600ml CXR with less CHF K being repleted; creat decreased to 2.4- due to improvement in cardiorenal syndrome Objective - Vital Signs/Intake and Output Vital Signs (last 24 hours): Temp Pulse Resp BP Pulse Ox 98.4 F 107 H 16 129/63 97 09/15/17 04:00 09/15/17 06:16 09/15/17 06:16 09/15/17 06:53 09/15/17 06:16 Intake and Output: 09/15/17 09/15/17 06:59 18:59 Intake Total 615.4 Output Total 1000 Balance -384.6 - Medications Medications: Current Medications Acetaminophen (Tylenol 325mg Tab) 650 mg PO Q6 PRN PRN Reason: Fever >100.4 F Aspirin (Ecotrin) 81 mg PO DAILY [facility] Last Admin: 09/14/17 08:59 Dose: Not Given Dextrose (Dextrose 50% Inj) 0 ml IV STAT PRN; Protocol PRN Reason: Hypoglycemia Protocol Dextrose (Glutose 15) 0 gm PO ONCE PRN; Protocol PRN Reason: Hypoglycemia Protocol Ferric Sodium Gluconate Complex (Ferrlecit) 125 mg IVPB DAILY [facility] Stop: 09/22/17 11:31 Last Admin: 09/14/17 13:08 Dose: 125 mg Glucagon (Glucagen Diagnostic Kit) 0 mg IM STAT PRN; Protocol PRN Reason: Hypoglycemia Protocol Heparin Sodium (Porcine) (Heparin) 5,000 units SC Q8 [facility] Last Admin: 09/15/17 06:56 Dose: 5,000 units Dextrose (Dextrose 5% In Water 1000 Ml) 1,000 mls @ 0 mls/hr IV .Q0M PRN; Protocol; Per Protocol PRN Reason: Hypoglycemia Protocol Furosemide 100 mg/ Sodium (Chloride) 100 mls @ 10 mls/hr IV .Q10H [facility]; 10 MG/HR PRN Reason: Protocol Last Admin: 09/15/17 06:53 Dose: 10 mls/hr Propofol (Diprivan) 1,000 mg in 100 mls @ 1.429 mls/hr IV .Q24H PRN; Protocol; 5 MCG/KG/MIN PRN Reason: TITRATE PER MD ORDER Last Admin: 09/15/17 05:00 Dose: 30 mcg/kg/min, 8.573 mls/hr Potassium Chloride (Potassium Chloride 20 Meq/100 Ml) 20 meq in 100 mls @ 50 mls/hr IVPB Q2H [facility] Stop: 09/15/17 13:29 Last Admin: 09/15/17 08:11 Dose: 50 mls/hr Insulin Aspart (Novolog) 0 unit SC Q6H [facility] PRN Reason: Protocol Last Admin: 09/15/17 06:54 Dose: Not Given Insulin Detemir (Levemir) 6 unit SC QAM [facility] Insulin Detemir (Levemir) 6 unit SC HS [facility] Last Admin: 09/14/17 21:16 Dose: 6 unit Ondansetron HCl (Zofran Inj) 4 mg IVP Q6 PRN PRN Reason: Nausea/Vomiting Last Admin: 09/13/17 11:01 Dose: 4 mg Pantoprazole Sodium (Protonix Inj) 40 mg IVP DAILY [facility] Last Admin: 09/14/17 09:05 Dose: 40 mg Rosuvastatin Calcium (Crestor) 2.5 mg PO HS [facility] Last Admin: 09/14/17 21:17 Dose: 2.5 mg - Labs Labs: 09/15/17 06:26 09/15/17 06:26 PT 10.3 SECONDS (9.7-12.2) 09/10/17 13:52 INR 0.9 09/10/17 13:52 APTT 34 SECONDS (21-34) 09/10/17 13:52 - Constitutional Appears: No Acute Distress, Chronically Ill - Head Exam Head Exam: ATRAUMATIC, NORMAL INSPECTION - Neck Exam Neck Exam: Normal Inspection. absent: Tenderness - Respiratory Exam Respiratory Exam: Clear to Ausculation Bilateral, Respiratory Distress - Cardiovascular Exam Cardiovascular Exam: REGULAR RHYTHM, +S1 - GI/Abdominal Exam GI & Abdominal Exam: Soft. absent: Tenderness - Extremities Exam Extremities Exam: Normal Inspection. absent: Tenderness - Neurological Exam Neurological Exam: Altered, Motor Sensory Deficit - Skin Skin Exam: Dry, Warm Assessment and Plan (1) BERYL (acute kidney injury) Status: Acute (2) CHF (congestive heart failure) Status: Acute (3) Chronic hemorrhagic anemia Status: Acute (4) Elevated brain natriuretic peptide (BNP) level Status: Acute (5) Elevated troponin I level Status: Acute (6) Non-STEMI (non-ST elevated myocardial infarction) Status: Acute (7) Transient hypotension Status: Acute (8) CKD (chronic kidney disease) stage 4, GFR 15-29 ml/min Status: Acute - Assessment and Plan (Free Text) Plan: no need for dialysis now add free water as Na increasing lasix gtt- eventually switch to intermittent lasix add EPO replete K
[2017-09-15] MEDS: Insulin Detemir 100 units/ml Vial (Levemir) SC SCH ×2 (10:02→21:54)
[2017-09-15] MEDS: Ferric Sodium Gluconat Complex 62.5 mg/5 ml Vial IVPB SCH (10:30)
[2017-09-15] MEDS: EPOETIN ALFA 10,000 UNIT/ML ML SC SCH (10:30)
--- NOTE | 2017-09-15 14:06 | CP.PCM.PN ---
<Rosa Elena Perdue DO - Last Filed: 09/15/17 16:10> Subjective - Date & Time of Evaluation Date of Evaluation: 09/15/17 Time of Evaluation: 13:58 - Subjective Subjective: Hematology progress note for Dr. Lentz Patient seen and examined with family at bedside. Patient off sedation, remains intubated. Objective - Vital Signs/Intake and Output Vital Signs (last 24 hours): Temp Pulse Resp BP Pulse Ox 100.7 F H 103 H 16 134/65 98 09/15/17 13:14 09/15/17 11:00 09/15/17 11:00 09/15/17 10:51 09/15/17 11:00 Intake and Output: 09/15/17 09/15/17 06:59 18:59 Intake Total 615.4 84.2 Output Total 1000 420 Balance -384.6 -335.8 - Medications Medications: Current Medications Acetaminophen (Tylenol 325mg Tab) 650 mg PO Q6 PRN PRN Reason: Fever >100.4 F Last Admin: 09/15/17 13:14 Dose: 650 mg Aspirin (Ecotrin) 81 mg PO DAILY [facility] Last Admin: 09/15/17 10:02 Dose: 81 mg Dextrose (Dextrose 50% Inj) 0 ml IV STAT PRN; Protocol PRN Reason: Hypoglycemia Protocol Dextrose (Glutose 15) 0 gm PO ONCE PRN; Protocol PRN Reason: Hypoglycemia Protocol Epoetin Sarath (Procrit) 10,000 unit SC TTS [facility] Last Admin: 09/15/17 10:30 Dose: 10,000 unit Ferric Sodium Gluconate Complex (Ferrlecit) 125 mg IVPB DAILY [facility] Stop: 09/22/17 11:31 Last Admin: 09/15/17 10:30 Dose: 125 mg Glucagon (Glucagen Diagnostic Kit) 0 mg IM STAT PRN; Protocol PRN Reason: Hypoglycemia Protocol Heparin Sodium (Porcine) (Heparin) 5,000 units SC Q8 [facility] Last Admin: 09/15/17 13:17 Dose: 5,000 units Dextrose (Dextrose 5% In Water 1000 Ml) 1,000 mls @ 0 mls/hr IV .Q0M PRN; Protocol; Per Protocol PRN Reason: Hypoglycemia Protocol Furosemide 100 mg/ Sodium (Chloride) 100 mls @ 10 mls/hr IV .Q10H [facility]; 10 MG/HR PRN Reason: Protocol Last Admin: 09/15/17 06:53 Dose: 10 mls/hr Propofol (Diprivan) 1,000 mg in 100 mls @ 1.429 mls/hr IV .Q24H PRN; Protocol; 5 MCG/KG/MIN PRN Reason: TITRATE PER MD ORDER Last Admin: 09/15/17 05:00 Dose: 30 mcg/kg/min, 8.573 mls/hr Insulin Aspart (Novolog) 0 unit SC Q6H [facility] PRN Reason: Protocol Last Admin: 09/15/17 13:16 Dose: 2 unit Insulin Detemir (Levemir) 6 unit SC QAM [facility] Last Admin: 09/15/17 10:02 Dose: 6 unit Insulin Detemir (Levemir) 6 unit SC HS [facility] Last Admin: 09/14/17 21:16 Dose: 6 unit Ondansetron HCl (Zofran Inj) 4 mg IVP Q6 PRN PRN Reason: Nausea/Vomiting Last Admin: 09/13/17 11:01 Dose: 4 mg Pantoprazole Sodium (Protonix Inj) 40 mg IVP DAILY [facility] Last Admin: 09/15/17 10:03 Dose: 40 mg Rosuvastatin Calcium (Crestor) 2.5 mg PO HS [facility] Last Admin: 09/14/17 21:17 Dose: 2.5 mg - Labs Labs: 09/15/17 06:26 09/15/17 06:26 PT 10.3 SECONDS (9.7-12.2) 09/10/17 13:52 INR 0.9 09/10/17 13:52 APTT 34 SECONDS (21-34) 09/10/17 13:52 - Head Exam Head Exam: ATRAUMATIC - ENT Exam Additional comments: ETT in place - Respiratory Exam Respiratory Exam: Decreased Breath Sounds, Rales - Cardiovascular Exam Cardiovascular Exam: +S1, +S2 - GI/Abdominal Exam GI & Abdominal Exam: Soft - Extremities Exam Additional comments: SCDs in place - Skin Skin Exam: Warm Assessment and Plan - Assessment and Plan (Free Text) Assessment: Anemia reticulocyte index 0.63 with hypoproliferative erythroid response from iron deficiency and element of anemia of renal failure will continue IV iron for total duration of 7 days transfusion support prn elevated globulin noted on admission kappa/lambda ratio normal serum immunofixation with faint band in IgG and lambda present- may represent reactive/ inflammatory process recommend repeat immunofixation in 3-6 months pt can follow as outpt Plan as per Dr. Lentz <Neil Lentz - Last Filed: 09/15/17 18:35> Objective - Vital Signs/Intake and Output Vital Signs (last 24 hours): Temp Pulse Resp BP Pulse Ox 99.2 F 102 H 16 117/59 L 96 09/15/17 15:11 09/15/17 18:00 09/15/17 18:00 09/15/17 17:51 09/15/17 18:00 Intake and Output: 09/15/17 09/15/17 06:59 18:59 Intake Total 615.4 504.2 Output Total 1000 775 Balance -384.6 -270.8 - Medications Medications: Current Medications Acetaminophen (Tylenol 325mg Tab) 650 mg PO Q6 PRN PRN Reason: Fever >100.4 F Last Admin: 09/15/17 13:14 Dose: 650 mg Aspirin (Ecotrin) 81 mg PO DAILY [facility] Last Admin: 09/15/17 10:02 Dose: 81 mg Dextrose (Dextrose 50% Inj) 0 ml IV STAT PRN; Protocol PRN Reason: Hypoglycemia Protocol Dextrose (Glutose 15) 0 gm PO ONCE PRN; Protocol PRN Reason: Hypoglycemia Protocol Epoetin Sarath (Procrit) 10,000 unit SC TTS [facility] Last Admin: 09/15/17 10:30 Dose: 10,000 unit Ferric Sodium Gluconate Complex (Ferrlecit) 125 mg IVPB DAILY [facility] Stop: 09/22/17 11:31 Last Admin: 09/15/17 10:30 Dose: 125 mg Glucagon (Glucagen Diagnostic Kit) 0 mg IM STAT PRN; Protocol PRN Reason: Hypoglycemia Protocol Heparin Sodium (Porcine) (Heparin) 5,000 units SC Q8 [facility] Last Admin: 09/15/17 13:17 Dose: 5,000 units Dextrose (Dextrose 5% In Water 1000 Ml) 1,000 mls @ 0 mls/hr IV .Q0M PRN; Protocol; Per Protocol PRN Reason: Hypoglycemia Protocol Furosemide 100 mg/ Sodium (Chloride) 100 mls @ 10 mls/hr IV .Q10H [facility]; 10 MG/HR PRN Reason: Protocol Last Admin: 09/15/17 15:36 Dose: 10 mls/hr Propofol (Diprivan) 1,000 mg in 100 mls @ 1.429 mls/hr IV .Q24H PRN; Protocol; 5 MCG/KG/MIN PRN Reason: TITRATE PER MD ORDER Last Admin: 09/15/17 05:00 Dose: 30 mcg/kg/min, 8.573 mls/hr Vancomycin HCl (Vancocin 750mg/D5w 150 Ml) 150 mls @ 100 mls/hr IV DAILY [facility] Stop: 09/20/17 15:16 Last Admin: 09/15/17 15:36 Dose: 100 mls/hr Insulin Aspart (Novolog) 0 unit SC Q6H [facility] PRN Reason: Protocol Last Admin: 09/15/17 18:34 Dose: Not Given Insulin Detemir (Levemir) 6 unit SC QAM [facility] Last Admin: 09/15/17 10:02 Dose: 6 unit Insulin Detemir (Levemir) 6 unit SC HS [facility] Last Admin: 09/14/17 21:16 Dose: 6 unit Ondansetron HCl (Zofran Inj) 4 mg IVP Q6 PRN PRN Reason: Nausea/Vomiting Last Admin: 09/13/17 11:01 Dose: 4 mg Pantoprazole Sodium (Protonix Inj) 40 mg IVP DAILY [facility] Last Admin: 09/15/17 10:03 Dose: 40 mg Rosuvastatin Calcium (Crestor) 2.5 mg PO HS [facility] Last Admin: 09/14/17 21:17 Dose: 2.5 mg - Labs Labs: 09/15/17 17:56 09/15/17 06:26 PT 10.3 SECONDS (9.7-12.2) 09/10/17 13:52 INR 0.9 09/10/17 13:52 APTT 34 SECONDS (21-34) 09/10/17 13:52 Assessment and Plan - Assessment and Plan (Free Text) Assessment: Pt seen and examined, agree with residents note.
--- NOTE | 2017-09-15 14:50 | CP.PCM.PN ---
Subjective - Date & Time of Evaluation Date of Evaluation: 09/15/17 Time of Evaluation: 14:45 - Subjective Subjective: Hospitalist Progress Note Patient was seen and examined at 2:45 PM 09/15/17 ICU Bed 6 Currently upon FULL ROS is not possible as patient is intubated - Head Exam Head Exam: NORMAL INSPECTION - Eye Exam Eye Exam: Pupils are round and reactive to light. absent: Nystagmus, Scleral icterus - ENT Exam ENT Exam: Mucous Membranes Moist - Respiratory Exam Respiratory Exam: Bibasilar Inspiratory Crackles. absent: Wheezes, Stridor - Cardiovascular Exam Cardiovascular Exam: REGULAR RHYTHM, +S1, +S2 - GI/Abdominal Exam GI & Abdominal Exam: Soft, Normal Bowel Sounds. absent: Distended, Firm, Guarding, Rigid, Tenderness, Rebound - Extremities Exam Extremities Exam: Normal Capillary Refill. absent: Pedal Edema, Tenderness - Back Exam Back Exam: absent: CVA tenderness (L), CVA tenderness (R) - Neurological Exam Neurological Exam: Alert, Awake, Oriented x3 - Skin Skin Exam: Dry, Intact, Normal Color, Warm Additional comments: Assessment and Plan (1) Acute Renal Failure Assessment & Plan: * Nephrology Dr. Chowdhury/Landry is following * BUN/Cr worsened and patient and patient is on trial of Lasix 09/12/17. Cr improved on 09/15/17 and holding off on HD for now. Status: Acute (2) Grade I Diastolic Heart Failure Echocardiogram 09/10/17 showed EF of 58% with hypokinetic anterior and apical septum and Grade I Abnormal Relaxation Patter. Moderate Tricuspid regurgitation and moderate to severe pulmonary HTN Elevated ProBNP upon admission Chest X Ray 09/13/17 showed increased pulmonary vascular congestion Chest X Ray 09/14/17 showed decreased right side infiltrate and limited left perihilar infiltrate remaining Status: Acute (3) Acute Respiratory Failure Likely secondary to the increased pulmonary vascular congestion from the blood transfusions on 09/12/17, Acute Renal Failure, and Diastolic Heart Failure Patient intubated and placed on vent by ICU team 09/13/17 Status: Acute (4) Leukocytosis Resolved Fever of 100.7 today Blood Culture 09/10/17 is Negative To Date Urine Culture 09/10/17 showed multiple species therefore another Urine Culture ordered 09/13/17 Sputum Culture 09/13/17 shows preliminary Staph aureus. Follow up final report. Vancomycin 750 mg IV 1x/day started 09/15/17. Follow up [facility] on 09/18/17 at 9:30 AM F/U ID Dr. Smith recommendations. Consider CT Chest if this worsens to rule out underlying pneumonia Status: Acute (5) Elevated Troponin Assessment & Plan: * Cardiology Dr. Dunbar on board-->help appreciated * Elevated Troponin: 0.6460-->0.4850-->0.5510 * On Aspirin 81mg PO daily Status: Acute (6) Diabetes 2 Assessment & Plan: HgBa1c: 7.8 Hypoglycemia protocol Crestor 2.5mg PO qHS Off metformin, glipizide on admission given acute renal failure Started on Levemir 6 units QAM and HS 09/14/17 based upon 24 hours ISS requirement Aspart sliding scale Status: Chronic (7) Hypertension Assessment & Plan: Off anti-hypertensives (Hydralazine, Metoprolol XL, Amlodipine, Losartan/HCTZ, Lasix, Imdur) because of hypotension upon admission Currently stable Status: Chronic (8) Anemia Assessment & Plan: retic count: 2.2 Iron: 44 TIBC: 220 iron saturation: 20 Ferritin: 31 Ferrlicit 125 mg IV 1x/day through 09/22/17 HgB dropped to 7.0 and 2 units PRBC transfused 09/12/17. HgB/Hct is stable. Serum Immunofixation with faint band in IgG and Lambda likely reactive. Repeat Serum Immunofixation in 3 to 6 months as outpatient. Heme/Onc Dr. Toña Lentz Stool Occult Blood 09/10/17 and 09/13/17 are negative Status: Chronic (9) Polypharmacy Assessment & Plan: Held home medications on admission including PO diabetic and diuretic medications given acute renal failure Status: Acute (10) Vertigo Assessment & Plan: CT Head: negative on admission Patient has seen previously Dr. 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 Wiggins, D.O. Objective - Vital Signs/Intake and Output Vital Signs (last 24 hours): Temp Pulse Resp BP Pulse Ox 100.7 F H 103 H 16 134/65 98 09/15/17 13:14 09/15/17 11:00 09/15/17 11:00 09/15/17 10:51 09/15/17 11:00 Intake and Output: 09/15/17 09/15/17 06:59 18:59 Intake Total 615.4 84.2 Output Total 1000 420 Balance -384.6 -335.8 - Medications Medications: Current Medications Acetaminophen (Tylenol 325mg Tab) 650 mg PO Q6 PRN PRN Reason: Fever >100.4 F Last Admin: 09/15/17 13:14 Dose: 650 mg Aspirin (Ecotrin) 81 mg PO DAILY [facility] Last Admin: 09/15/17 10:02 Dose: 81 mg Dextrose (Dextrose 50% Inj) 0 ml IV STAT PRN; Protocol PRN Reason: Hypoglycemia Protocol Dextrose (Glutose 15) 0 gm PO ONCE PRN; Protocol PRN Reason: Hypoglycemia Protocol Epoetin Sarath (Procrit) 10,000 unit SC TTS [facility] Last Admin: 09/15/17 10:30 Dose: 10,000 unit Ferric Sodium Gluconate Complex (Ferrlecit) 125 mg IVPB DAILY [facility] Stop: 09/22/17 11:31 Last Admin: 09/15/17 10:30 Dose: 125 mg Glucagon (Glucagen Diagnostic Kit) 0 mg IM STAT PRN; Protocol PRN Reason: Hypoglycemia Protocol Heparin Sodium (Porcine) (Heparin) 5,000 units SC Q8 [facility] Last Admin: 09/15/17 13:17 Dose: 5,000 units Dextrose (Dextrose 5% In Water 1000 Ml) 1,000 mls @ 0 mls/hr IV .Q0M PRN; Protocol; Per Protocol PRN Reason: Hypoglycemia Protocol Furosemide 100 mg/ Sodium (Chloride) 100 mls @ 10 mls/hr IV .Q10H [facility]YS; 10 MG/HR PRN Reason: Protocol Last Admin: 09/15/17 06:53 Dose: 10 mls/hr Propofol (Diprivan) 1,000 mg in 100 mls @ 1.429 mls/hr IV .Q24H PRN; Protocol; 5 MCG/KG/MIN PRN Reason: TITRATE PER MD ORDER Last Admin: 09/15/17 05:00 Dose: 30 mcg/kg/min, 8.573 mls/hr Insulin Aspart (Novolog) 0 unit SC Q6H [facility] PRN Reason: Protocol Last Admin: 09/15/17 13:16 Dose: 2 unit Insulin Detemir (Levemir) 6 unit SC QAM [facility] Last Admin: 09/15/17 10:02 Dose: 6 unit Insulin Detemir (Levemir) 6 unit SC HS [facility] Last Admin: 09/14/17 21:16 Dose: 6 unit Ondansetron HCl (Zofran Inj) 4 mg IVP Q6 PRN PRN Reason: Nausea/Vomiting Last Admin: 09/13/17 11:01 Dose: 4 mg Pantoprazole Sodium (Protonix Inj) 40 mg IVP DAILY [facility] Last Admin: 09/15/17 10:03 Dose: 40 mg Rosuvastatin Calcium (Crestor) 2.5 mg PO HS [facility] Last Admin: 09/14/17 21:17 Dose: 2.5 mg - Labs Labs: 09/15/17 06:26 09/15/17 06:26 PT 10.3 SECONDS (9.7-12.2) 09/10/17 13:52 INR 0.9 09/10/17 13:52 APTT 34 SECONDS (21-34) 09/10/17 13:52
--- NOTE | 2017-09-15 15:28 | CARD ---
APPROVED REPORT EKG Measurement Heart [id number] <Conclusion> Sinus rhythm with 1st degree AV block Otherwise normal ECG
[2017-09-15] MEDS: Vancomycin 750mg/D5W 150 ml 150 ML IV SCH (15:36)
--- NOTE | 2017-09-15 16:36 | CP.CCUPN ---
<Bertin Wheat - Last Filed: 09/15/17 16:32> CCU Subjective - Physician Review Subjective (Free Text): PGY1 ICU Progress Note for Dr. Shane Patient seen and examined this morning at bedside. Patient intubated. ROS unattainable. CCU Objective - Vital Signs / Intake & Output Vital Signs (Last 4 hours): Vital Signs Temp Pulse Resp BP Pulse Ox 09/15/17 15:36 117/53 L 09/15/17 15:11 99.2 F 09/15/17 15:00 106 H 22 98 09/15/17 14:51 102 H 16 117/53 L 96 09/15/17 14:14 99.2 F 09/15/17 14:00 106 H 16 97 09/15/17 13:51 105 H 16 129/61 96 09/15/17 13:14 100.7 F H 09/15/17 13:00 108 H 16 98 09/15/17 12:51 108 H 15 140/65 98 Intake and Output (Last 8hrs): Intake & Output 09/15/17 09/15/17 09/15/17 06:59 14:59 22:59 Intake Total 461.2 364.2 Output Total 750 595 Balance -288.8 -230.8 Weight 105 lb Intake: IV 70 Intake, IV Amount 171.2 364.2 Left Antecubital 80 80 Left Forearm 250 Right Antecubital 91.2 34.2 Oral 0 Tube Feeding 220 Output: Urine 750 475 Urethral (Garcia) 750 475 Stool 120 Urine/Stool Mix 0 Emesis 0 Other: # Bowel Movements 1 - Physical Exam Head: Positive for: Atraumatic, Normocephalic Extroacular Muscles: Positive for: EOMI Mouth: Positive for: Other (intubated) Respiratory/Chest: Positive for: Rhonchi (improving), Other (intubated). Negative for: Accessory Muscle Use Cardiovascular: Positive for: Regular Rate and Rhythm, Normal S1, S2 Abdomen: Negative for: Tenderness, Distention Lower Extremity: Positive for: Other (SCDs in place). Negative for: CALF TENDERNESS Neurological: Positive for: Other (intubated) Skin: Positive for: Warm, Dry Psychiatric: Positive for: Other (intubated) - Medications Active Medications: Active Medications Generic Name Dose Route Start Last Admin Trade Name Freq PRN Reason Stop Dose Admin Acetaminophen 650 mg 09/10/17 17:00 09/15/17 13:14 Tylenol 325mg Tab PO 650 mg Q6 PRN Administration Fever >100.4 F Aspirin 81 mg 09/11/17 10:00 09/15/17 10:02 Ecotrin PO 81 mg DAILY GLADYS Administration Dextrose 0 ml 09/10/17 17:21 Dextrose 50% Inj IV STAT PRN Hypoglycemia Protocol Protocol Dextrose 0 gm 09/10/17 17:21 Glutose 15 PO ONCE PRN Hypoglycemia Protocol Protocol Epoetin Sarath 10,000 unit 09/15/17 10:00 09/15/17 10:30 Procrit SC 10,000 unit TTS GLADYS Administration Ferric Sodium Gluconate Complex 125 mg 09/14/17 11:30 09/15/17 10:30 Ferrlecit IVPB 09/22/17 11:31 125 mg DAILY GLADYS Administration Glucagon 0 mg 09/10/17 17:21 Glucagen Diagnostic Kit IM STAT PRN Hypoglycemia Protocol Protocol Heparin Sodium (Porcine) 5,000 units 09/12/17 22:00 09/15/17 13:17 Heparin SC 5,000 units Q8 GLADYS Administration Dextrose 1,000 mls @ 0 mls/hr 09/10/17 17:21 Dextrose 5% In Water 1000 Ml IV .Q0M PRN Hypoglycemia Protocol Protocol Per Protocol Furosemide 100 mg/ Sodium 100 mls @ 10 mls/hr 09/13/17 10:00 09/15/17 15:36 Chloride IV 10 mls/hr .Q10H GLADYS Administration Protocol 10 MG/HR Propofol 1,000 mg in 100 mls @ 1.429 mls/hr 09/13/17 12:08 09/15/17 05:00 Diprivan IV 30 mcg/kg/min .Q24H PRN 8.573 mls/hr TITRATE PER MD ORDER Administration Protocol 5 MCG/KG/MIN Vancomycin HCl 150 mls @ 100 mls/hr 09/15/17 15:15 09/15/17 15:36 Vancocin 750mg/D5w 150 Ml IV 09/20/17 15:16 100 mls/hr DAILY GLADYS Administration Insulin Aspart 0 unit 09/14/17 18:00 09/15/17 13:16 Novolog SC 2 unit Q6H GLADYS Administration Protocol Insulin Detemir 6 unit 09/15/17 10:00 09/15/17 10:02 Levemir SC 6 unit QAM GLADYS Administration Insulin Detemir 6 unit 09/14/17 22:00 09/14/17 21:16 Levemir SC 6 unit HS GLADYS Administration Ondansetron HCl 4 mg 09/10/17 17:00 09/13/17 11:01 Zofran Inj IVP 4 mg Q6 PRN Administration Nausea/Vomiting Pantoprazole Sodium 40 mg 09/11/17 10:00 09/15/17 10:03 Protonix Inj IVP 40 mg DAILY GLADYS Administration Rosuvastatin Calcium 2.5 mg 09/10/17 22:00 09/14/17 21:17 Crestor PO 2.5 mg HS GLADYS Administration - Patient Studies Lab Studies: Microbiology Studies 09/13/17 12:07 Gram Stain - Final Trachasp Sputum Culture - Preliminary Staphylococcus Aureus 09/10/17 15:00 Blood Culture - Preliminary Blood NO GROWTH AFTER 4 DAYS 09/10/17 13:45 Blood Culture - Preliminary Blood NO GROWTH AFTER 4 DAYS Lab Studies 09/15/17 09/15/17 09/15/17 Range/Units 12:02 06:26 06:26 WBC 8.3 (4.8-10.8) K/uL RBC 4.13 (3.80-5.20) Mil/uL Hgb 9.8 L (11.0-16.0) g/dL Hct 30.4 L (34.0-47.0) % MCV 73.6 L (81.0-99.0) fL MCH 23.6 L (27.0-31.0) pg MCHC 32.1 L (33.0-37.0) g/dL RDW 18.2 H (11.5-14.5) % Plt Count 257 (130-400) K/uL MPV 9.5 (7.2-11.7) fL Neut % (Auto) 73.5 (50.0-75.0) % Lymph % (Auto) 16.1 L (20.0-40.0) % [place] % (Auto) 9.8 (0.0-10.0) % Eos % (Auto) 0.0 (0.0-4.0) % Baso % (Auto) 0.6 (0.0-2.0) % Neut # 6.1 (1.8-7.0) K/uL Lymph # 1.3 (1.0-4.3) K/uL [place] # 0.8 (0.0-0.8) K/uL Eos # 0.0 (0.0-0.7) K/uL Baso # 0.0 (0.0-0.2) K/uL Puncture Site pCO2 (35-45) mm/Hg pO2 (80-100) mm/Hg HCO3 (21-28) mmol/L ABG pH (7.35-7.45) ABG Total CO2 (22-28) mmol/L ABG O2 Saturation (95-98) % ABG Base Excess (-2.0-3.0) mmol/L ABG Hemoglobin (11.7-17.4) g/dL ABG Carboxyhemoglobin (0.5-1.5) % POC ABG HHb (Measured) (0.0-5.0) % ABG Methemoglobin (0.0-3.0) % Guy Test A-a O2 Difference mm/Hg Respiratory Index Hgb O2 Saturation (95.0-98.0) % Vent Mode Mechanical Rate FiO2 % Tidal Volume PEEP Crit Value Called To Crit Value Called By Crit Value Read Back Blood Gas Notified Time Sodium 149 H (132-148) mmol/L Potassium 2.9 L (3.6-5.2) mmol/L Chloride 102 (98-107) mmol/L Carbon Dioxide 32 H (22-30) mmol/L Anion Gap 18 (10-20) BUN 75 H (7-17) mg/dL Creatinine 2.4 H (0.7-1.2) mg/dL Est GFR ( Amer) 23 Est GFR (Non-Af Amer) 19 POC Glucose (mg/dL) 244 H (65-110) mg/dL Random Glucose 90 (65-105) mg/dL Calcium 8.3 L (8.6-10.4) mg/dl Total Bilirubin 1.0 (0.2-1.3) mg/dL AST 81 H (14-36) U/L ALT 113 H (9-52) U/L Alkaline Phosphatase 62 (38-126) U/L Total Protein 6.6 (6.3-8.3) g/dL Albumin 3.1 L (3.5-5.0) g/dL Albumin (PEP) (3.8-4.8) g/dL Globulin 3.5 (2.2-3.9) gm/dL Albumin/Globulin Ratio 0.9 L (1.0-2.1) Znfzf-1-Kgzttmtur (0.2-0.3) g/dL Jarqk-2-Gtffltboq (0.5-0.9) g/dL Xmvp-1-Fmkztfxf (0.4-0.6) g/dL Gnbu-2-Ygzthcxn (0.2-0.5) g/dL Gamma Globulins (0.8-1.7) g/dL Abnorm Protein Band 1 Abnorm Protein Band 2 Abnorm Protein Band 3 KARON & SPEP Interp Heparin-induced Plt Ab (Negative) 09/15/17 09/15/17 09/14/17 Range/Units 05:46 05:27 23:40 WBC (4.8-10.8) K/uL RBC (3.80-5.20) Mil/uL Hgb (11.0-16.0) g/dL Hct (34.0-47.0) % MCV (81.0-99.0) fL MCH (27.0-31.0) pg MCHC (33.0-37.0) g/dL RDW (11.5-14.5) % Plt Count (130-400) K/uL MPV (7.2-11.7) fL Neut % (Auto) (50.0-75.0) % Lymph % (Auto) (20.0-40.0) % [place] % (Auto) (0.0-10.0) % Eos % (Auto) (0.0-4.0) % Baso % (Auto) (0.0-2.0) % Neut # (1.8-7.0) K/uL Lymph # (1.0-4.3) K/uL [place] # (0.0-0.8) K/uL Eos # (0.0-0.7) K/uL Baso # (0.0-0.2) K/uL Puncture Site Lb pCO2 30 L (35-45) mm/Hg pO2 87 (80-100) mm/Hg HCO3 35.5 H (21-28) mmol/L ABG pH 7.67 H* (7.35-7.45) ABG Total CO2 35.5 H (22-28) mmol/L ABG O2 Saturation 96.9 (95-98) % ABG Base Excess 13.6 H (-2.0-3.0) mmol/L ABG Hemoglobin 10.4 L (11.7-17.4) g/dL ABG Carboxyhemoglobin 0.8 (0.5-1.5) % POC ABG HHb (Measured) 3.1 (0.0-5.0) % ABG Methemoglobin 0.2 (0.0-3.0) % Guy Test Na A-a O2 Difference 161.0 mm/Hg Respiratory Index 1.9 Hgb O2 Saturation 95.9 (95.0-98.0) % Vent Mode Prvc Mechanical Rate 18 FiO2 40.0 % Tidal Volume 500 PEEP 5 Crit Value Called To Felicia long/rn Crit Value Called By Doyle pearce/rt Crit Value Read Back Y Blood Gas Notified Time 550 Sodium (132-148) mmol/L Potassium (3.6-5.2) mmol/L Chloride (98-107) mmol/L Carbon Dioxide (22-30) mmol/L Anion Gap (10-20) BUN (7-17) mg/dL Creatinine (0.7-1.2) mg/dL Est GFR ( Amer) Est GFR (Non-Af Amer) POC Glucose (mg/dL) 112 H 202 H (65-110) mg/dL Random Glucose (65-105) mg/dL Calcium (8.6-10.4) mg/dl Total Bilirubin (0.2-1.3) mg/dL AST (14-36) U/L ALT (9-52) U/L Alkaline Phosphatase (38-126) U/L Total Protein (6.3-8.3) g/dL Albumin (3.5-5.0) g/dL Albumin (PEP) (3.8-4.8) g/dL Globulin (2.2-3.9) gm/dL Albumin/Globulin Ratio (1.0-2.1) Yzmqm-2-Wghjfebyp (0.2-0.3) g/dL Rkvfi-0-Dkqdkulzc (0.5-0.9) g/dL Lllu-0-Zqvuawyj (0.4-0.6) g/dL Irwi-6-Iiuqsmuj (0.2-0.5) g/dL Gamma Globulins (0.8-1.7) g/dL Abnorm Protein Band 1 Abnorm Protein Band 2 Abnorm Protein Band 3 KARON & SPEP Interp Heparin-induced Plt Ab (Negative) 09/14/17 09/12/17 09/11/17 Range/Units 17:58 13:54 09:16 WBC (4.8-10.8) K/uL RBC (3.80-5.20) Mil/uL Hgb (11.0-16.0) g/dL Hct (34.0-47.0) % MCV (81.0-99.0) fL MCH (27.0-31.0) pg MCHC (33.0-37.0) g/dL RDW (11.5-14.5) % Plt Count (130-400) K/uL MPV (7.2-11.7) fL Neut % (Auto) (50.0-75.0) % Lymph % (Auto) (20.0-40.0) % [place] % (Auto) (0.0-10.0) % Eos % (Auto) (0.0-4.0) % Baso % (Auto) (0.0-2.0) % Neut # (1.8-7.0) K/uL Lymph # (1.0-4.3) K/uL [place] # (0.0-0.8) K/uL Eos # (0.0-0.7) K/uL Baso # (0.0-0.2) K/uL Puncture Site pCO2 (35-45) mm/Hg pO2 (80-100) mm/Hg HCO3 (21-28) mmol/L ABG pH (7.35-7.45) ABG Total CO2 (22-28) mmol/L ABG O2 Saturation (95-98) % ABG Base Excess (-2.0-3.0) mmol/L ABG Hemoglobin (11.7-17.4) g/dL ABG Carboxyhemoglobin (0.5-1.5) % POC ABG HHb (Measured) (0.0-5.0) % ABG Methemoglobin (0.0-3.0) % Guy Test A-a O2 Difference mm/Hg Respiratory Index Hgb O2 Saturation (95.0-98.0) % Vent Mode Mechanical Rate FiO2 % Tidal Volume PEEP Crit Value Called To Crit Value Called By Crit Value Read Back Blood Gas Notified Time Sodium (132-148) mmol/L Potassium (3.6-5.2) mmol/L Chloride (98-107) mmol/L Carbon Dioxide (22-30) mmol/L Anion Gap (10-20) BUN (7-17) mg/dL Creatinine (0.7-1.2) mg/dL Est GFR ( Amer) Est GFR (Non-Af Amer) POC Glucose (mg/dL) 253 H (65-110) mg/dL Random Glucose (65-105) mg/dL Calcium (8.6-10.4) mg/dl Total Bilirubin (0.2-1.3) mg/dL AST (14-36) U/L ALT (9-52) U/L Alkaline Phosphatase (38-126) U/L Total Protein (6.3-8.3) g/dL Albumin (3.5-5.0) g/dL Albumin (PEP) 3.1 L (3.8-4.8) g/dL Globulin (2.2-3.9) gm/dL Albumin/Globulin Ratio (1.0-2.1) Zhdlo-4-Kdfdjbgmd 0.3 (0.2-0.3) g/dL Moswz-0-Ohdpwzaeb 0.9 (0.5-0.9) g/dL Bqie-3-Whwoogft 0.3 L (0.4-0.6) g/dL Zhmj-5-Xjevrmhr 0.3 (0.2-0.5) g/dL Gamma Globulins 0.8 (0.8-1.7) g/dL Abnorm Protein Band 1 TEST NOT PERFORMED Abnorm Protein Band 2 TEST NOT PERFORMED Abnorm Protein Band 3 TEST NOT PERFORMED KARON & SPEP Interp See note Heparin-induced Plt Ab Negative (Negative) Laboratory Results - last 24 hr 09/11/17 09/12/17 09/14/17 09:16 13:54 17:58 WBC RBC Hgb Hct MCV MCH MCHC RDW Plt Count MPV Neut % (Auto) Lymph % (Auto) [place] % (Auto) Eos % (Auto) Baso % (Auto) Neut # Lymph # [place] # Eos # Baso # Puncture Site pCO2 pO2 HCO3 ABG pH ABG Total CO2 ABG O2 Saturation ABG Base Excess ABG Hemoglobin ABG Carboxyhemoglobin POC ABG HHb (Measured) ABG Methemoglobin Guy Test A-a O2 Difference Respiratory Index Hgb O2 Saturation Vent Mode Mechanical Rate FiO2 Tidal Volume PEEP Crit Value Called To Crit Value Called By Crit Value Read Back Blood Gas Notified Time Sodium Potassium Chloride Carbon Dioxide Anion Gap BUN Creatinine Est GFR ( Amer) Est GFR (Non-Af Amer) POC Glucose (mg/dL) 253 H Random Glucose Calcium Total Bilirubin AST ALT Alkaline Phosphatase Total Protein Albumin Albumin (PEP) 3.1 L Globulin Albumin/Globulin Ratio Mbphl-4-Vmsccthve 0.3 Nkaun-6-Hqslraild 0.9 Qqdd-5-Wkvavjvt 0.3 L Ravx-0-Adxvwxgg 0.3 Gamma Globulins 0.8 Abnorm Protein Band 1 TEST NOT PERFORMED Abnorm Protein Band 2 TEST NOT PERFORMED Abnorm Protein Band 3 TEST NOT PERFORMED KARON & SPEP Interp See note Heparin-induced Plt Ab Negative 09/14/17 09/15/17 09/15/17 23:40 05:27 05:46 WBC RBC Hgb Hct MCV MCH MCHC RDW Plt Count MPV Neut % (Auto) Lymph % (Auto) [place] % (Auto) Eos % (Auto) Baso % (Auto) Neut # Lymph # [place] # Eos # Baso # Puncture Site Lb pCO2 30 L pO2 87 HCO3 35.5 H ABG pH 7.67 H* ABG Total CO2 35.5 H ABG O2 Saturation 96.9 ABG Base Excess 13.6 H ABG Hemoglobin 10.4 L ABG Carboxyhemoglobin 0.8 POC ABG HHb (Measured) 3.1 ABG Methemoglobin 0.2 Guy Test Na A-a O2 Difference 161.0 Respiratory Index 1.9 Hgb O2 Saturation 95.9 Vent Mode Prvc Mechanical Rate 18 FiO2 40.0 Tidal Volume 500 PEEP 5 Crit Value Called To Felicia long/rn Crit Value Called By Doyle peacre/rt Crit Value Read Back Y Blood Gas Notified Time 550 Sodium Potassium Chloride Carbon Dioxide Anion Gap BUN Creatinine Est GFR ( Amer) Est GFR (Non-Af Amer) POC Glucose (mg/dL) 202 H 112 H Random Glucose Calcium Total Bilirubin AST ALT Alkaline Phosphatase Total Protein Albumin Albumin (PEP) Globulin Albumin/Globulin Ratio Slsmr-2-Uovryolra Durlk-8-Vihuhvtgm Svis-4-Kkjbgyag Kppl-6-Vyuxjvor Gamma Globulins Abnorm Protein Band 1 Abnorm Protein Band 2 Abnorm Protein Band 3 KARON & SPEP Interp Heparin-induced Plt Ab 09/15/17 09/15/17 09/15/17 06:26 06:26 12:02 WBC 8.3 RBC 4.13 Hgb 9.8 L Hct 30.4 L MCV 73.6 L MCH 23.6 L MCHC 32.1 L RDW 18.2 H Plt Count 257 MPV 9.5 Neut % (Auto) 73.5 Lymph % (Auto) 16.1 L [place] % (Auto) 9.8 Eos % (Auto) 0.0 Baso % (Auto) 0.6 Neut # 6.1 Lymph # 1.3 [place] # 0.8 Eos # 0.0 Baso # 0.0 Puncture Site pCO2 pO2 HCO3 ABG pH ABG Total CO2 ABG O2 Saturation ABG Base Excess ABG Hemoglobin ABG Carboxyhemoglobin POC ABG HHb (Measured) ABG Methemoglobin Guy Test A-a O2 Difference Respiratory Index Hgb O2 Saturation Vent Mode Mechanical Rate FiO2 Tidal Volume PEEP Crit Value Called To Crit Value Called By Crit Value Read Back Blood Gas Notified Time Sodium 149 H Potassium 2.9 L Chloride 102 Carbon Dioxide 32 H Anion Gap 18 BUN 75 H Creatinine 2.4 H Est GFR ( Amer) 23 Est GFR (Non-Af Amer) 19 POC Glucose (mg/dL) 244 H Random Glucose 90 Calcium 8.3 L Total Bilirubin 1.0 AST 81 H ALT 113 H Alkaline Phosphatase 62 Total Protein 6.6 Albumin 3.1 L Albumin (PEP) Globulin 3.5 Albumin/Globulin Ratio 0.9 L Riidx-7-[place] Mkowg-7-Ovlcvezke Omic-0-Dqxzgkqt Fmmi-9-Oljkqpwa Gamma Globulins Abnorm Protein Band 1 Abnorm Protein Band 2 Abnorm Protein Band 3 KARON & SPEP Interp Heparin-induced Plt Ab EKG/Cardiology Studies: Cardiology / EKG Studies 09/15/17 08:40 EKG [ELECTROCARDIOGRAM] Stat Comment: Mode Of Transportation: Reason For Exam: monitor changes Fingerstick Blood Sugar Results: 244 Review of Systems - Review of Systems Systems not reviewed;Unavailable: Intubated Critical Care Progress Note - Nutrition Nutrition: Nutrition Category Date Time Status Heart Healthy Diet [DIET] Diets 09/10/17 Dinner Active Assessment/Plan - Assessment and Plan (Free Text) Assessment: Patient is an 81 year old female presenting with NSTEMI, acute renal failure and pulmonary edema Plan: Respiratory: Intubated CXR 09/14 - Decreasing density of right upper lobe opacity. Right basilar opacity is no longer appreciable. No other abnormal opacity appreciated. Lines and tubes unchanged. Lasix drip @10mg/hour LE duplex - negative b/l ABG - pH 7.67/pCO2 30/pO2 87/HCO3 35.5 - on vent 500/40/18/5 - RR decreased to 16 --> if patient over breathes the vent, switch to CPAP + PS 02/28 WBC improved to 8.3 from 9.9 Procalcitonin 0.41 f/u repeat ABG Renal: Nephro consult, Dr. Alatorre, help appreciated Cr 2.4 from 3.2 BUN 75 from 67 Urine output ~2L over 24 hours Renal US - Small size echogenic kidneys suggestive of medical renal disease. No evidence of hydronephrosis. Due to patient now being alkalotic and improving kidney function, dialysis will be on hold for the time being Sodium Bicarb discontinued f/u Nephro recs Cardio: Cardio consult, Dr. Dunbar, help appreciated ECHO 09/10 - EF 50-55%, anterior and apical septum hypokinetic; MR mod.-severe ; TR mod.; Pulmonary HTN mod-severe BP controlled EKG 09/12 - no acute ST segment elevations Aspirin 81mg PO daily Crestor 2.5 mg PO HS Trop 0.646/0.485/0.551/1.03 pro-BNP 84030 Neuro: MRI of brain for dizziness - cancelled Propofol drip - discontinued Endo: ISS Levemir 6 units in AM and HS HgbA1c 7.8 Hem/Onc: Hem/Onc, Dr. Lentz consulted, help appreciated Hgb stable 9.8 Retic 2.2 Electrolytes: K+ 2.9 - repleted with 40 mEq oral, 60 mEq IV f/u repeat blood work - after electrolytes repleted Prophylactic Care: Heparin 5000u SC q8 Protonix 40mg IVP daily Case discussed with Dr. Johnnie Wheat PGY1 <SvitlanaFelix M - Last Filed: 09/15/17 18:53> CCU Objective - Vital Signs / Intake & Output Vital Signs (Last 4 hours): Vital Signs Temp Pulse Resp BP Pulse Ox 09/15/17 18:00 102 H 16 96 09/15/17 17:51 99 H 16 117/59 L 96 09/15/17 17:00 107 H 16 97 09/15/17 16:51 95 H 16 125/60 97 09/15/17 16:00 96 H 16 97 09/15/17 15:51 101 H 16 128/60 98 09/15/17 15:36 117/53 L 09/15/17 15:11 99.2 F 09/15/17 15:00 106 H 22 98 Intake and Output (Last 8hrs): Intake & Output 09/15/17 09/15/17 09/15/17 06:59 14:59 22:59 Intake Total 461.2 364.2 140 Output Total 750 595 180 Balance -288.8 -230.8 -40 Weight 105 lb Intake: IV 70 Intake, IV Amount 171.2 364.2 140 Left Antecubital 80 80 40 Left Forearm 250 100 Right Antecubital 91.2 34.2 0 Oral 0 0 Tube Feeding 220 Output: Urine 750 475 175 Urethral (Garcia) 750 475 175 Stool 120 5 Urine/Stool Mix 0 Emesis 0 0 Other: # Bowel Movements 1 - Medications Active Medications: Active Medications Generic Name Dose Route Start Last Admin Trade Name Ana PRN Reason Stop Dose Admin Acetaminophen 650 mg 09/10/17 17:00 09/15/17 13:14 Tylenol 325mg Tab PO 650 mg Q6 PRN Administration Fever >100.4 F Aspirin 81 mg 09/11/17 10:00 09/15/17 10:02 Ecotrin PO 81 mg DAILY GLADYS Administration Dextrose 0 ml 09/10/17 17:21 Dextrose 50% Inj IV STAT PRN Hypoglycemia Protocol Protocol Dextrose 0 gm 09/10/17 17:21 Glutose 15 PO ONCE PRN Hypoglycemia Protocol Protocol Epoetin Sarath 10,000 unit 09/15/17 10:00 09/15/17 10:30 Procrit SC 10,000 unit TTS GLADYS Administration Ferric Sodium Gluconate Complex 125 mg 09/14/17 11:30 09/15/17 10:30 Ferrlecit IVPB 09/22/17 11:31 125 mg DAILY GLADYS Administration Glucagon 0 mg 09/10/17 17:21 Glucagen Diagnostic Kit IM STAT PRN Hypoglycemia Protocol Protocol Heparin Sodium (Porcine) 5,000 units 09/12/17 22:00 09/15/17 13:17 Heparin SC 5,000 units Q8 GLADYS Administration Dextrose 1,000 mls @ 0 mls/hr 09/10/17 17:21 Dextrose 5% In Water 1000 Ml IV .Q0M PRN Hypoglycemia Protocol Protocol Per Protocol Furosemide 100 mg/ Sodium 100 mls @ 10 mls/hr 09/13/17 10:00 09/15/17 15:36 Chloride IV 10 mls/hr .Q10H GLADYS Administration Protocol 10 MG/HR Propofol 1,000 mg in 100 mls @ 1.429 mls/hr 09/13/17 12:08 09/15/17 05:00 Diprivan IV 30 mcg/kg/min .Q24H PRN 8.573 mls/hr TITRATE PER MD ORDER Administration Protocol 5 MCG/KG/MIN Vancomycin HCl 150 mls @ 100 mls/hr 09/15/17 15:15 09/15/17 15:36 Vancocin 750mg/D5w 150 Ml IV 09/20/17 15:16 100 mls/hr DAILY GLADYS Administration Insulin Aspart 0 unit 09/14/17 18:00 09/15/17 18:34 Novolog SC Not Given Q6H GLADYS Protocol Insulin Detemir 6 unit 09/15/17 10:00 09/15/17 10:02 Levemir SC 6 unit QAM GLADYS Administration Insulin Detemir 6 unit 09/14/17 22:00 09/14/17 21:16 Levemir SC 6 unit HS GLADYS Administration Ondansetron HCl 4 mg 09/10/17 17:00 09/13/17 11:01 Zofran Inj IVP 4 mg Q6 PRN Administration Nausea/Vomiting Pantoprazole Sodium 40 mg 09/11/17 10:00 09/15/17 10:03 Protonix Inj IVP 40 mg DAILY GLADYS Administration Rosuvastatin Calcium 2.5 mg 09/10/17 22:00 09/14/17 21:17 Crestor PO 2.5 mg HS GLADYS Administration - Patient Studies Lab Studies: Microbiology Studies 09/13/17 12:07 Gram Stain - Final Trachasp Sputum Culture - Preliminary Staphylococcus Aureus 09/10/17 15:00 Blood Culture - Preliminary Blood NO GROWTH AFTER 4 DAYS 09/10/17 13:45 Blood Culture - Preliminary Blood NO GROWTH AFTER 4 DAYS Lab Studies 09/15/17 09/15/17 09/15/17 Range/Units 18:11 17:56 17:56 WBC 9.0 (4.8-10.8) K/uL RBC 4.23 (3.80-5.20) Mil/uL Hgb 9.9 L (11.0-16.0) g/dL Hct 31.0 L (34.0-47.0) % MCV 73.3 L (81.0-99.0) fL MCH 23.4 L (27.0-31.0) pg MCHC 31.9 L (33.0-37.0) g/dL RDW 18.7 H (11.5-14.5) % Plt Count 287 (130-400) K/uL MPV 9.3 (7.2-11.7) fL Neut % (Auto) 75.0 (50.0-75.0) % Lymph % (Auto) 15.9 L (20.0-40.0) % [place] % (Auto) 7.6 (0.0-10.0) % Eos % (Auto) 0.1 (0.0-4.0) % Baso % (Auto) 1.4 (0.0-2.0) % Neut # 6.7 (1.8-7.0) K/uL Lymph # 1.4 (1.0-4.3) K/uL [place] # 0.7 (0.0-0.8) K/uL Eos # 0.0 (0.0-0.7) K/uL Baso # 0.1 (0.0-0.2) K/uL Puncture Site pCO2 (35-45) mm/Hg pO2 (80-100) mm/Hg HCO3 (21-28) mmol/L ABG pH (7.35-7.45) ABG Total CO2 (22-28) mmol/L ABG O2 Saturation (95-98) % ABG Base Excess (-2.0-3.0) mmol/L ABG Hemoglobin (11.7-17.4) g/dL ABG Carboxyhemoglobin (0.5-1.5) % POC ABG HHb (Measured) (0.0-5.0) % ABG Methemoglobin (0.0-3.0) % Guy Test ABG Potassium (3.6-5.2) mmol/L A-a O2 Difference mm/Hg Respiratory Index Hgb O2 Saturation (95.0-98.0) % Glucose (65-105) mg/dl Lactate (0.7-2.1) mmol/L Vent Mode Mechanical Rate FiO2 % Tidal Volume PEEP Crit Value Called To Crit Value Called By Crit Value Read Back Blood Gas Notified Time Sodium 150 H (132-148) mmol/L Potassium 4.9 (3.6-5.2) mmol/L Chloride 104 (98-107) mmol/L Carbon Dioxide 37 H (22-30) mmol/L Anion Gap 14 (10-20) BUN 76 H (7-17) mg/dL Creatinine 2.3 H (0.7-1.2) mg/dL Est GFR ( Amer) 25 Est GFR (Non-Af Amer) 20 POC Glucose (mg/dL) 172 H (65-110) mg/dL Random Glucose 156 H (65-105) mg/dL Calcium 8.0 L (8.6-10.4) mg/dl Phosphorus 2.0 L (2.5-4.5) mg/dL Magnesium 1.9 (1.6-2.3) mg/dL Total Bilirubin 0.8 (0.2-1.3) mg/dL AST 98 H D (14-36) U/L ALT 106 H (9-52) U/L Alkaline Phosphatase 69 (38-126) U/L Total Protein 7.1 (6.3-8.3) g/dL Albumin 3.2 L (3.5-5.0) g/dL Albumin (PEP) (3.8-4.8) g/dL Globulin 3.9 (2.2-3.9) gm/dL Albumin/Globulin Ratio 0.8 L (1.0-2.1) Eqaiu-0-Pqqcsuxkc (0.2-0.3) g/dL Upjwk-1-Jewqhdaog (0.5-0.9) g/dL Csaa-0-Sjzahzls (0.4-0.6) g/dL Jjtm-9-Mtstwucy (0.2-0.5) g/dL Gamma Globulins (0.8-1.7) g/dL Abnorm Protein Band 1 Abnorm Protein Band 2 Abnorm Protein Band 3 Arterial Blood Potassium (3.6-5.2) mmol/L KARON & SPEP Interp Heparin-induced Plt Ab (Negative) 09/15/17 09/15/17 09/15/17 Range/Units 17:56 17:48 12:02 WBC (4.8-10.8) K/uL RBC (3.80-5.20) Mil/uL Hgb (11.0-16.0) g/dL Hct (34.0-47.0) % MCV (81.0-99.0) fL MCH (27.0-31.0) pg MCHC (33.0-37.0) g/dL RDW (11.5-14.5) % Plt Count (130-400) K/uL MPV (7.2-11.7) fL Neut % (Auto) (50.0-75.0) % Lymph % (Auto) (20.0-40.0) % [place] % (Auto) (0.0-10.0) % Eos % (Auto) (0.0-4.0) % Baso % (Auto) (0.0-2.0) % Neut # (1.8-7.0) K/uL Lymph # (1.0-4.3) K/uL [place] # (0.0-0.8) K/uL Eos # (0.0-0.7) K/uL Baso # (0.0-0.2) K/uL Puncture Site Rba pCO2 28 L (35-45) mm/Hg pO2 143 H (80-100) mm/Hg HCO3 35.0 H (21-28) mmol/L ABG pH 7.68 H* (7.35-7.45) ABG Total CO2 33.9 H (22-28) mmol/L ABG O2 Saturation 97.5 (95-98) % ABG Base Excess 12.8 H (-2.0-3.0) mmol/L ABG Hemoglobin (11.7-17.4) g/dL ABG Carboxyhemoglobin (0.5-1.5) % POC ABG HHb (Measured) (0.0-5.0) % ABG Methemoglobin (0.0-3.0) % Guy Test Na ABG Potassium 5.4 H (3.6-5.2) mmol/L A-a O2 Difference 107.0 mm/Hg Respiratory Index 0.7 Hgb O2 Saturation (95.0-98.0) % Glucose 155 H (65-105) mg/dl Lactate 1.4 (0.7-2.1) mmol/L Vent Mode Prvc Mechanical Rate 16 FiO2 40.0 % Tidal Volume 500 PEEP 5 Crit Value Called To [facility] nurse catherine Crit Value Called By Kalyan winston Crit Value Read Back Y Blood Gas Notified Time 1752 Sodium 151.0 H (132-148) mmol/L Potassium (3.6-5.2) mmol/L Chloride 118.0 H (98-107) mmol/L Carbon Dioxide (22-30) mmol/L Anion Gap (10-20) BUN (7-17) mg/dL Creatinine (0.7-1.2) mg/dL Est GFR ( Amer) Est GFR (Non-Af Amer) POC Glucose (mg/dL) 244 H (65-110) mg/dL Random Glucose (65-105) mg/dL Calcium (8.6-10.4) mg/dl Phosphorus 2.0 L (2.5-4.5) mg/dL Magnesium (1.6-2.3) mg/dL Total Bilirubin (0.2-1.3) mg/dL AST (14-36) U/L ALT (9-52) U/L Alkaline Phosphatase (38-126) U/L Total Protein (6.3-8.3) g/dL Albumin (3.5-5.0) g/dL Albumin (PEP) (3.8-4.8) g/dL Globulin (2.2-3.9) gm/dL Albumin/Globulin Ratio (1.0-2.1) Iiwbe-6-Bujywoxpy (0.2-0.3) g/dL Vnfnq-9-Ulxpvmwpz (0.5-0.9) g/dL Ecwl-4-Pdjgmugn (0.4-0.6) g/dL Ygss-8-Qpumuuug (0.2-0.5) g/dL Gamma Globulins (0.8-1.7) g/dL Abnorm Protein Band 1 Abnorm Protein Band 2 Abnorm Protein Band 3 Arterial Blood Potassium 5.4 H (3.6-5.2) mmol/L KARON & SPEP Interp Heparin-induced Plt Ab (Negative) 09/15/17 09/15/17 09/15/17 Range/Units 06:26 06:26 05:46 WBC 8.3 (4.8-10.8) K/uL RBC 4.13 (3.80-5.20) Mil/uL Hgb 9.8 L (11.0-16.0) g/dL Hct 30.4 L (34.0-47.0) % MCV 73.6 L (81.0-99.0) fL MCH 23.6 L (27.0-31.0) pg MCHC 32.1 L (33.0-37.0) g/dL RDW 18.2 H (11.5-14.5) % Plt Count 257 (130-400) K/uL MPV 9.5 (7.2-11.7) fL Neut % (Auto) 73.5 (50.0-75.0) % Lymph % (Auto) 16.1 L (20.0-40.0) % [place] % (Auto) 9.8 (0.0-10.0) % Eos % (Auto) 0.0 (0.0-4.0) % Baso % (Auto) 0.6 (0.0-2.0) % Neut # 6.1 (1.8-7.0) K/uL Lymph # 1.3 (1.0-4.3) K/uL [place] # 0.8 (0.0-0.8) K/uL Eos # 0.0 (0.0-0.7) K/uL Baso # 0.0 (0.0-0.2) K/uL Puncture Site pCO2 (35-45) mm/Hg pO2 (80-100) mm/Hg HCO3 (21-28) mmol/L ABG pH (7.35-7.45) ABG Total CO2 (22-28) mmol/L ABG O2 Saturation (95-98) % ABG Base Excess (-2.0-3.0) mmol/L ABG Hemoglobin (11.7-17.4) g/dL ABG Carboxyhemoglobin (0.5-1.5) % POC ABG HHb (Measured) (0.0-5.0) % ABG Methemoglobin (0.0-3.0) % Guy Test ABG Potassium (3.6-5.2) mmol/L A-a O2 Difference mm/Hg Respiratory Index Hgb O2 Saturation (95.0-98.0) % Glucose (65-105) mg/dl Lactate (0.7-2.1) mmol/L Vent Mode Mechanical Rate FiO2 % Tidal Volume PEEP Crit Value Called To Crit Value Called By Crit Value Read Back Blood Gas Notified Time Sodium 149 H (132-148) mmol/L Potassium 2.9 L (3.6-5.2) mmol/L Chloride 102 (98-107) mmol/L Carbon Dioxide 32 H (22-30) mmol/L Anion Gap 18 (10-20) BUN 75 H (7-17) mg/dL Creatinine 2.4 H (0.7-1.2) mg/dL Est GFR ( Amer) 23 Est GFR (Non-Af Amer) 19 POC Glucose (mg/dL) 112 H (65-110) mg/dL Random Glucose 90 (65-105) mg/dL Calcium 8.3 L (8.6-10.4) mg/dl Phosphorus (2.5-4.5) mg/dL Magnesium (1.6-2.3) mg/dL Total Bilirubin 1.0 (0.2-1.3) mg/dL AST 81 H (14-36) U/L ALT 113 H (9-52) U/L Alkaline Phosphatase 62 (38-126) U/L Total Protein 6.6 (6.3-8.3) g/dL Albumin 3.1 L (3.5-5.0) g/dL Albumin (PEP) (3.8-4.8) g/dL Globulin 3.5 (2.2-3.9) gm/dL Albumin/Globulin Ratio 0.9 L (1.0-2.1) Shabd-3-Cvvfztqzl (0.2-0.3) g/dL Vcofh-5-Gnvzubxzp (0.5-0.9) g/dL Qdcz-8-Zgzxvoho (0.4-0.6) g/dL Xpct-4-Pcarxmrn (0.2-0.5) g/dL Gamma Globulins (0.8-1.7) g/dL Abnorm Protein Band 1 Abnorm Protein Band 2 Abnorm Protein Band 3 Arterial Blood Potassium (3.6-5.2) mmol/L KARON & SPEP Interp Heparin-induced Plt Ab (Negative) 09/15/17 09/14/17 09/12/17 Range/Units 05:27 23:40 13:54 WBC (4.8-10.8) K/uL RBC (3.80-5.20) Mil/uL Hgb (11.0-16.0) g/dL Hct (34.0-47.0) % MCV (81.0-99.0) fL MCH (27.0-31.0) pg MCHC (33.0-37.0) g/dL RDW (11.5-14.5) % Plt Count (130-400) K/uL MPV (7.2-11.7) fL Neut % (Auto) (50.0-75.0) % Lymph % (Auto) (20.0-40.0) % [place] % (Auto) (0.0-10.0) % Eos % (Auto) (0.0-4.0) % Baso % (Auto) (0.0-2.0) % Neut # (1.8-7.0) K/uL Lymph # (1.0-4.3) K/uL [place] # (0.0-0.8) K/uL Eos # (0.0-0.7) K/uL Baso # (0.0-0.2) K/uL Puncture Site Lb pCO2 30 L (35-45) mm/Hg pO2 87 (80-100) mm/Hg HCO3 35.5 H (21-28) mmol/L ABG pH 7.67 H* (7.35-7.45) ABG Total CO2 35.5 H (22-28) mmol/L ABG O2 Saturation 96.9 (95-98) % ABG Base Excess 13.6 H (-2.0-3.0) mmol/L ABG Hemoglobin 10.4 L (11.7-17.4) g/dL ABG Carboxyhemoglobin 0.8 (0.5-1.5) % POC ABG HHb (Measured) 3.1 (0.0-5.0) % ABG Methemoglobin 0.2 (0.0-3.0) % Guy Test Na ABG Potassium (3.6-5.2) mmol/L A-a O2 Difference 161.0 mm/Hg Respiratory Index 1.9 Hgb O2 Saturation 95.9 (95.0-98.0) % Glucose (65-105) mg/dl Lactate (0.7-2.1) mmol/L Vent Mode Prvc Mechanical Rate 18 FiO2 40.0 % Tidal Volume 500 PEEP 5 Crit Value Called To Felicia long/rn Crit Value Called By Doyle pearce/rt Crit Value Read Back Y Blood Gas Notified Time 550 Sodium (132-148) mmol/L Potassium (3.6-5.2) mmol/L Chloride (98-107) mmol/L Carbon Dioxide (22-30) mmol/L Anion Gap (10-20) BUN (7-17) mg/dL Creatinine (0.7-1.2) mg/dL Est GFR ( Amer) Est GFR (Non-Af Amer) POC Glucose (mg/dL) 202 H (65-110) mg/dL Random Glucose (65-105) mg/dL Calcium (8.6-10.4) mg/dl Phosphorus (2.5-4.5) mg/dL Magnesium (1.6-2.3) mg/dL Total Bilirubin (0.2-1.3) mg/dL AST (14-36) U/L ALT (9-52) U/L Alkaline Phosphatase (38-126) U/L Total Protein (6.3-8.3) g/dL Albumin (3.5-5.0) g/dL Albumin (PEP) (3.8-4.8) g/dL Globulin (2.2-3.9) gm/dL Albumin/Globulin Ratio (1.0-2.1) Cmipg-2-Jrgmuwmun (0.2-0.3) g/dL Hfbah-8-Uwdhyoqse (0.5-0.9) g/dL Trqi-1-Mmjyusnn (0.4-0.6) g/dL Dohn-5-Ymtvgesl (0.2-0.5) g/dL Gamma Globulins (0.8-1.7) g/dL Abnorm Protein Band 1 Abnorm Protein Band 2 Abnorm Protein Band 3 Arterial Blood Potassium (3.6-5.2) mmol/L KARON & SPEP Interp Heparin-induced Plt Ab Negative (Negative) 09/11/17 Range/Units 09:16 WBC (4.8-10.8) K/uL RBC (3.80-5.20) Mil/uL Hgb (11.0-16.0) g/dL Hct (34.0-47.0) % MCV (81.0-99.0) fL MCH (27.0-31.0) pg MCHC (33.0-37.0) g/dL RDW (11.5-14.5) % Plt Count (130-400) K/uL MPV (7.2-11.7) fL Neut % (Auto) (50.0-75.0) % Lymph % (Auto) (20.0-40.0) % [place] % (Auto) (0.0-10.0) % Eos % (Auto) (0.0-4.0) % Baso % (Auto) (0.0-2.0) % Neut # (1.8-7.0) K/uL Lymph # (1.0-4.3) K/uL [place] # (0.0-0.8) K/uL Eos # (0.0-0.7) K/uL Baso # (0.0-0.2) K/uL Puncture Site pCO2 (35-45) mm/Hg pO2 (80-100) mm/Hg HCO3 (21-28) mmol/L ABG pH (7.35-7.45) ABG Total CO2 (22-28) mmol/L ABG O2 Saturation (95-98) % ABG Base Excess (-2.0-3.0) mmol/L ABG Hemoglobin (11.7-17.4) g/dL ABG Carboxyhemoglobin (0.5-1.5) % POC ABG HHb (Measured) (0.0-5.0) % ABG Methemoglobin (0.0-3.0) % Guy Test ABG Potassium (3.6-5.2) mmol/L A-a O2 Difference mm/Hg Respiratory Index Hgb O2 Saturation (95.0-98.0) % Glucose (65-105) mg/dl Lactate (0.7-2.1) mmol/L Vent Mode Mechanical Rate FiO2 % Tidal Volume PEEP Crit Value Called To Crit Value Called By Crit Value Read Back Blood Gas Notified Time Sodium (132-148) mmol/L Potassium (3.6-5.2) mmol/L Chloride (98-107) mmol/L Carbon Dioxide (22-30) mmol/L Anion Gap (10-20) BUN (7-17) mg/dL Creatinine (0.7-1.2) mg/dL Est GFR ( Amer) Est GFR (Non-Af Amer) POC Glucose (mg/dL) (65-110) mg/dL Random Glucose (65-105) mg/dL Calcium (8.6-10.4) mg/dl Phosphorus (2.5-4.5) mg/dL Magnesium (1.6-2.3) mg/dL Total Bilirubin (0.2-1.3) mg/dL AST (14-36) U/L ALT (9-52) U/L Alkaline Phosphatase (38-126) U/L Total Protein (6.3-8.3) g/dL Albumin (3.5-5.0) g/dL Albumin (PEP) 3.1 L (3.8-4.8) g/dL Globulin (2.2-3.9) gm/dL Albumin/Globulin Ratio (1.0-2.1) Gscue-3-Gzwtotkuc 0.3 (0.2-0.3) g/dL Fymjs-4-Tijhnztws 0.9 (0.5-0.9) g/dL Rrbx-9-Ngrbtoms 0.3 L (0.4-0.6) g/dL Nnkk-4-Zifebsmd 0.3 (0.2-0.5) g/dL Gamma Globulins 0.8 (0.8-1.7) g/dL Abnorm Protein Band 1 TEST NOT PERFORMED Abnorm Protein Band 2 TEST NOT PERFORMED Abnorm Protein Band 3 TEST NOT PERFORMED Arterial Blood Potassium (3.6-5.2) mmol/L KARON & SPEP Interp See note Heparin-induced Plt Ab (Negative) Laboratory Results - last 24 hr 09/11/17 09/12/17 09/14/17 09:16 13:54 23:40 WBC RBC Hgb Hct MCV MCH MCHC RDW Plt Count MPV Neut % (Auto) Lymph % (Auto) [place] % (Auto) Eos % (Auto) Baso % (Auto) Neut # Lymph # [place] # Eos # Baso # Puncture Site pCO2 pO2 HCO3 ABG pH ABG Total CO2 ABG O2 Saturation ABG Base Excess ABG Hemoglobin ABG Carboxyhemoglobin POC ABG HHb (Measured) ABG Methemoglobin Guy Test ABG Potassium A-a O2 Difference Respiratory Index Hgb O2 Saturation Glucose Lactate Vent Mode Mechanical Rate FiO2 Tidal Volume PEEP Crit Value Called To Crit Value Called By Crit Value Read Back Blood Gas Notified Time Sodium Potassium Chloride Carbon Dioxide Anion Gap BUN Creatinine Est GFR ( Amer) Est GFR (Non-Af Amer) POC Glucose (mg/dL) 202 H Random Glucose Calcium Phosphorus Magnesium Total Bilirubin AST ALT Alkaline Phosphatase Total Protein Albumin Albumin (PEP) 3.1 L Globulin Albumin/Globulin Ratio Uxlko-5-Ngohozqri 0.3 Vamdz-4-Utvikhura 0.9 Aepx-2-Drfkjzcx 0.3 L Wegs-8-Ewqnypwx 0.3 Gamma Globulins 0.8 Abnorm Protein Band 1 TEST NOT PERFORMED Abnorm Protein Band 2 TEST NOT PERFORMED Abnorm Protein Band 3 TEST NOT PERFORMED Arterial Blood Potassium KARON & SPEP Interp See note Heparin-induced Plt Ab Negative 09/15/17 09/15/17 09/15/17 05:27 05:46 06:26 WBC 8.3 RBC 4.13 Hgb 9.8 L Hct 30.4 L MCV 73.6 L MCH 23.6 L MCHC 32.1 L RDW 18.2 H Plt Count 257 MPV 9.5 Neut % (Auto) 73.5 Lymph % (Auto) 16.1 L [place] % (Auto) 9.8 Eos % (Auto) 0.0 Baso % (Auto) 0.6 Neut # 6.1 Lymph # 1.3 [place] # 0.8 Eos # 0.0 Baso # 0.0 Puncture Site Lb pCO2 30 L pO2 87 HCO3 35.5 H ABG pH 7.67 H* ABG Total CO2 35.5 H ABG O2 Saturation 96.9 ABG Base Excess 13.6 H ABG Hemoglobin 10.4 L ABG Carboxyhemoglobin 0.8 POC ABG HHb (Measured) 3.1 ABG Methemoglobin 0.2 Guy Test Na ABG Potassium A-a O2 Difference 161.0 Respiratory Index 1.9 Hgb O2 Saturation 95.9 Glucose Lactate Vent Mode Prvc Mechanical Rate 18 FiO2 40.0 Tidal Volume 500 PEEP 5 Crit Value Called To Felicia long/rn Crit Value Called By Doyle pearce/rt Crit Value Read Back Y Blood Gas Notified Time 550 Sodium Potassium Chloride Carbon Dioxide Anion Gap BUN Creatinine Est GFR ( Amer) Est GFR (Non-Af Amer) POC Glucose (mg/dL) 112 H Random Glucose Calcium Phosphorus Magnesium Total Bilirubin AST ALT Alkaline Phosphatase Total Protein Albumin Albumin (PEP) Globulin Albumin/Globulin Ratio Irepn-7-Knskcnctz Jagga-5-Cdecpprie Obup-1-Ljbcebkn Gudy-6-Fxbmqqdw Gamma Globulins Abnorm Protein Band 1 Abnorm Protein Band 2 Abnorm Protein Band 3 Arterial Blood Potassium KARON & SPEP Interp Heparin-induced Plt Ab 09/15/17 09/15/17 09/15/17 06:26 12:02 17:48 WBC RBC Hgb Hct MCV MCH MCHC RDW Plt Count MPV Neut % (Auto) Lymph % (Auto) [place] % (Auto) Eos % (Auto) Baso % (Auto) Neut # Lymph # [place] # Eos # Baso # Puncture Site Rba pCO2 28 L pO2 143 H HCO3 35.0 H ABG pH 7.68 H* ABG Total CO2 33.9 H ABG O2 Saturation 97.5 ABG Base Excess 12.8 H ABG Hemoglobin ABG Carboxyhemoglobin POC ABG HHb (Measured) ABG Methemoglobin Guy Test Na ABG Potassium 5.4 H A-a O2 Difference 107.0 Respiratory Index 0.7 Hgb O2 Saturation Glucose 155 H Lactate 1.4 Vent Mode Prvc Mechanical Rate 16 FiO2 40.0 Tidal Volume 500 PEEP 5 Crit Value Called To [facility] nurse catherine Crit Value Called By Kalyan winston Crit Value Read Back Y Blood Gas Notified Time 1752 Sodium 149 H 151.0 H Potassium 2.9 L Chloride 102 118.0 H Carbon Dioxide 32 H Anion Gap 18 BUN 75 H Creatinine 2.4 H Est GFR ( Amer) 23 Est GFR (Non-Af Amer) 19 POC Glucose (mg/dL) 244 H Random Glucose 90 Calcium 8.3 L Phosphorus Magnesium Total Bilirubin 1.0 AST 81 H ALT 113 H Alkaline Phosphatase 62 Total Protein 6.6 Albumin 3.1 L Albumin (PEP) Globulin 3.5 Albumin/Globulin Ratio 0.9 L Susel-1-Tggsvjacz Ntpnx-3-Uukepxhzl Swhx-5-Bitdjffj Nzbc-9-Tawbayab Gamma Globulins Abnorm Protein Band 1 Abnorm Protein Band 2 Abnorm Protein Band 3 Arterial Blood Potassium 5.4 H KARON & SPEP Interp Heparin-induced Plt Ab 09/15/17 09/15/17 09/15/17 17:56 17:56 17:56 WBC 9.0 RBC 4.23 Hgb 9.9 L Hct 31.0 L MCV 73.3 L MCH 23.4 L MCHC 31.9 L RDW 18.7 H Plt Count 287 MPV 9.3 Neut % (Auto) 75.0 Lymph % (Auto) 15.9 L [place] % (Auto) 7.6 Eos % (Auto) 0.1 Baso % (Auto) 1.4 Neut # 6.7 Lymph # 1.4 [place] # 0.7 Eos # 0.0 Baso # 0.1 Puncture Site pCO2 pO2 HCO3 ABG pH ABG Total CO2 ABG O2 Saturation ABG Base Excess ABG Hemoglobin ABG Carboxyhemoglobin POC ABG HHb (Measured) ABG Methemoglobin Guy Test ABG Potassium A-a O2 Difference Respiratory Index Hgb O2 Saturation Glucose Lactate Vent Mode Mechanical Rate FiO2 Tidal Volume PEEP Crit Value Called To Crit Value Called By Crit Value Read Back Blood Gas Notified Time Sodium 150 H Potassium 4.9 Chloride 104 Carbon Dioxide 37 H Anion Gap 14 BUN 76 H Creatinine 2.3 H Est GFR ( Amer) 25 Est GFR (Non-Af Amer) 20 POC Glucose (mg/dL) Random Glucose 156 H Calcium 8.0 L Phosphorus 2.0 L 2.0 L Magnesium 1.9 Total Bilirubin 0.8 AST 98 H D ALT 106 H Alkaline Phosphatase 69 Total Protein 7.1 Albumin 3.2 L Albumin (PEP) Globulin 3.9 Albumin/Globulin Ratio 0.8 L Vqwwq-6-Ybeskkkxx Saxpy-6-Hdlllneiz Ctxy-3-Fykrfttm Hzwb-0-Lmsdrdau Gamma Globulins Abnorm Protein Band 1 Abnorm Protein Band 2 Abnorm Protein Band 3 Arterial Blood Potassium KARON & SPEP Interp Heparin-induced Plt Ab 09/15/17 18:11 WBC RBC Hgb Hct MCV MCH MCHC RDW Plt Count MPV Neut % (Auto) Lymph % (Auto) [place] % (Auto) Eos % (Auto) Baso % (Auto) Neut # Lymph # [place] # Eos # Baso # Puncture Site pCO2 pO2 HCO3 ABG pH ABG Total CO2 ABG O2 Saturation ABG Base Excess ABG Hemoglobin ABG Carboxyhemoglobin POC ABG HHb (Measured) ABG Methemoglobin Guy Test ABG Potassium A-a O2 Difference Respiratory Index Hgb O2 Saturation Glucose Lactate Vent Mode Mechanical Rate FiO2 Tidal Volume PEEP Crit Value Called To Crit Value Called By Crit Value Read Back Blood Gas Notified Time Sodium Potassium Chloride Carbon Dioxide Anion Gap BUN Creatinine Est GFR ( Amer) Est GFR (Non-Af Amer) POC Glucose (mg/dL) 172 H Random Glucose Calcium Phosphorus Magnesium Total Bilirubin AST ALT Alkaline Phosphatase Total Protein Albumin Albumin (PEP) Globulin Albumin/Globulin Ratio Sqpfj-1-Zqrwazywj Nwtij-9-Ntqaprdki Cxcr-6-Qmbcdfbd Iyrp-8-Xmadbjmv Gamma Globulins Abnorm Protein Band 1 Abnorm Protein Band 2 Abnorm Protein Band 3 Arterial Blood Potassium KARON & SPEP Interp Heparin-induced Plt Ab EKG/Cardiology Studies: Cardiology / EKG Studies 09/15/17 08:40 EKG [ELECTROCARDIOGRAM] Stat Comment: Mode Of Transportation: Reason For Exam: monitor changes Critical Care Progress Note - Nutrition Nutrition: Nutrition Category Date Time Status Heart Healthy Diet [DIET] Diets 09/10/17 Dinner Active Attending/Attestation - Attestation I have personally seen and examined this patient.: Yes I have fully participated in the care of the patient.: Yes I have reviewed all pertinent clinical information: Yes Notes (Text): 09/15/17 18:51 Today: August The Patient was seen and examined at the bedside, Medical records reviewed, and management issues were discussed and formulated with the house staff. I have reviewed all the relevant clinical, laboratory, hemodynamic, radiographic data and medications Events reviewed Pain issues, skin care, head of the bed elevation, glycemic control were addressed. Agree with above resident's assessment and treatment plans of care as transcribed in Dr. Wheat note. Critically ill patient with acute hypoxemic respiratory failure, septic shock, sever metabolic acidosis Pt on Lasix drip, diuresing well. Renal function better We held Propofol drip, will start vent weaning and SAT/SBP once fully awake Discussed with the family in details diagnosis, treatment plans and alternatives , Code status: Full code Total critical care time 48 minutes
[2017-09-15 17:52] LABS: ABG MECHANICAL RATE 16; ARTERIAL BLOOD GAS MODE PRVC; ATERIAL BLOOD GAS PEEP 5; DRAW SITE RBA
[2017-09-15 18:00] LABS: BASO # 0.1 K/uL (0.0-0.2); BASO % 1.4 % (0.0-2.0); EOS % 0.1 % (0.0-4.0); LYMPH # 1.4 K/uL (1.0-4.3); LYMPH % 15.9 % (20.0-40.0); MEAN CELL VOLUME 73.3 fL (81.0-99.0); MEAN CORPUSCULAR HEMOGLOBIN 23.4 pg (27.0-31.0); MEAN CORPUSCULAR HGB CONC 31.9 g/dL (33.0-37.0); MEAN PLATELET VOLUME 9.3 fL (7.2-11.7); MONO # 0.7 K/uL (0.0-0.8); MONO % 7.6 % (0.0-10.0); NRBC % 0.1 % (0.0-2.0); RED CELL DISTRIBUTION WIDTH 18.7 % (11.5-14.5)
--- NOTE | 2017-09-15 18:02 | CP.PCM.CON ---
History of Present Illness - History of Present Illness History of Present Illness: 81 year old female was admitted with complaint of increasing somnolence, BERYL, CHF. Patient was initially hypotensive on admission but had low procalcitonin level, was afebrile and normal wbc count While being treated for CHF her respiratory status worsened and she was intubated and started on lasix drip . 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 Allergies: none Surgeries: lower extremity surgery; Meds: Amlodipine, Hctz/Losartan, Hydralazine, Lasix, Metformin, Glipizide, Statin Social: lives with daughter; can walk up stairs independently at baseline with cane; cooks for self, feeds self, changes self, bathes self, indepdent in ADL and most IADL at baseline Review of Systems - Review of Systems Systems not reviewed;Unavailable: Intubated - Constitutional Constitutional: As Per HPI - EENT Eyes: absent: As Per HPI, Blind Spots, Blurred Vision, Change in Vision, Decreased Night Vision, Diplopia, Discharge, Dry Eye, Exophthalmos, Floaters, Irritation, Itchy Eyes, Loss of Peripheral Vision, Pain, Photophobia, Requires Corrective Lenses, Sees Flashes, Spots in Vision, Tunnel Vision, Other Visual Disturbances, Loss of Vision, Other Ears: absent: As Per HPI, Decreased Hearing, Ear Discharge, Ear Pain, Tinnitus, Abnormal Hearing, Disequilibrium, Dizziness, Other Nose/Mouth/Throat: absent: As Per HPI, Epistaxis, Nasal Congestion, Nasal Discharge, Nasal Obstruction, Nasal Trauma, Nose Pain, Post Nasal Drip, Sinus Pain, Sinus Pressure, Bleeding Gums, Change in Voice, Dental Pain, Dry Mouth, Dysphagia, Halitosis, Hoarsness, Lip Swelling, Mouth Lesions, Mouth Pain, Odynophagia, Sore Throat, Throat Swelling, Tongue Swelling, Facial Pain, Neck Pain, Neck Mass, Other - Breasts Breasts: absent: As Per HPI, Change in Shape, Mass, Pain, Nipple Discharge, Nipple Inversion, Skin Changes, Swelling, Other - Cardiovascular Cardiovascular: As Per HPI - Respiratory Respiratory: As Per HPI - Gastrointestinal Gastrointestinal: absent: As Per HPI, Abdominal Pain, Belching, Bloating, Change in Bowel Habits, Change in Stool Character, Coffee Ground Emesis, Constipation, Cramping, Diarrhea, Dyspepsia, Dysphagia, Early Satiety, Excessive Flatus, Fecal Incontinence, Heartburn, Hematemesis, Hematochezia, Loose Stools, Melena, Nausea, Odynophagia, Temesmus, Vomiting, Other - Genitourinary Genitourinary: absent: As Per HPI, Change in Urinary Stream, Difficulty Urinating, Dysuria, Flank Pain, Hematuria, Pyuria, Nocturia, Urinary Incontinence, Urinary Frequency, Urinary Hesitance, Urinary Urgency, Voiding Freq/Small Amts, Freq UTI, Hx Renal/Bladder Calculi, Hx /Renal Surgery, Bladder Distension, Other - Reproductive: Female Reproductive:Female: absent: As Per HPI, Amenorrhea, Amenorrhea/ Control, Currently Menstual, Cycle <21 Days, Cycle >35 Days, Cycle Variable, Menses 1-7 Days, Menses >/= 8 Days, Menses Variable, Cycle > 4 Weeks Between, No Menses for 6 Months, Heavy Menses, Light Menses, Normal Menses, Spotting Between Cycles , S/P Hysterectomy, Menopausal, Post Menopausal, Premenarche, Abnormal Vaginal Bleeding, Dysmenorrhea, Dyspareunia, Genital Lesions, Genital Pruritis, Pelvic Pain, Prolapse Symptoms, Sexual Dysfunction, Vaginal Discharge, Vaginal Dryness , Vaginal Odor, Vaginal Pruritis, Other - Menstruation Menstruation: absent: As Per HPI, Amenorrhea, Amenorrhea/ Control, Currently Menstual, Cycle <21 Days, Cycle >35 Days, Cycle Variable, Menses 1-7 Days, Menses >/= 8 Days, Menses Variable, Cycle > 4 Weeks Between, No Menses for 6 Months, Heavy Menses, Light Menses, Normal Menses, Spotting Between Cycles , S/P Hysterectomy, Menopausal, Post Menopausal, Premenarche, Abnormal Vaginal Bleeding, Dysmenorrhea, Other - Musculoskeletal Musculoskeletal: As Per HPI - Integumentary Integumentary: absent: As Per HPI, Acne, Alopecia, Bleeding Lesions, Change in Hair, Change in Nails, Change in Pigmentation, Changing Lesions, Dry Skin, Erythema, Furuncle, Hirsutism, Lesions, New Lesions, Non-Healing Lesions, Photosensitivity, Pruritus, Rash, Skin Pain, Skin Ulcer, Sores, Striae, Swelling , Unusual Bruising, Wounds, Jaundice, Other - Neurological Neurological: absent: As Per HPI, Abnormal Gait, Abnormal Hearing, Abnormal Movements, Abnormal Speech, Behavioral Changes, Burning Sensations, Confusion, Convulsions, Disequilibrium, Dizziness, Numbness, Focal Weakness, Frequent Falls , Headaches, Lack of Coordination, Loss of Vision, Memory Loss, Paresthesias, Radicular Pain, Restless Legs, Sensory Deficit, Syncope, Tingling, Tremor, Vertigo, Weakness, Other Visual Disturbances, Other - Psychiatric Psychiatric: absent: As Per HPI, Abnormal Sleep Pattern, Anhedonia, Anxiety, Auditory Hallucinations, Behavioral Changes, Change in Appetite, Change in Libido, Confusion, Depression, Difficulty Concentrating, Hallucinations, Homicidal Ideation, Hopelessness, Irritability, Memory Loss, Mood Swings, Panic Attacks, Paranoia, Suicidal Ideation, Visual Hallucinations, Tactile Hallucinations, Other - Endocrine Endocrine: absent: As Per HPI, Change in Body Appearance, Change in Libido, Cold Intolorance, Deepening of Voice, Excessive Sweating, Fatigue, Flushing, Heat Intolorance, Increase in Ring/Shoe/Hat Size, Palpitations, Polydipsia, Polyphagia, Polyuria, Other - Hematologic/Lymphatic Hematologic: absent: As Per HPI, Easy Bleeding, Easy Bruising, Lymphadenopathy, Other Past Patient History - Infectious Disease Hx of Infectious Diseases: None - Past Medical History & Family History Past Medical History?: Yes - Past Social History Smoking Status: Never Smoked - CARDIAC Hx Hypercholesterolemia: Yes Hx Hypertension: Yes - PULMONARY Hx Respiratory Disorders: No - HEENT Hx HEENT Problems: No - RENAL Hx Chronic Kidney Disease: No - ENDOCRINE/METABOLIC Hx Endocrine Disorders: Yes Hx Diabetes Mellitus Type 2: Yes - HEMATOLOGICAL/ONCOLOGICAL Hx Anemia: Yes - INTEGUMENTARY Hx Dermatological Problems: No - MUSCULOSKELETAL/RHEUMATOLOGICAL Hx Arthritis: Yes Hx Osteoporosis: Yes - GASTROINTESTINAL Hx Gastrointestinal Disorders: No - GENITOURINARY/GYNECOLOGICAL Hx Genitourinary Disorders: No - PSYCHIATRIC Hx Psychophysiologic Disorder: No Hx Substance Use: No - SURGICAL HISTORY Hx Surgeries: Yes Hx Orthopedic Surgery: Yes (LEFT KNEE) Other/Comment: Right leg - ANESTHESIA Hx Anesthesia: Yes Hx Anesthesia Reactions: No Meds Allergies/Adverse Reactions: Allergies Allergy/AdvReac Type Severity Reaction Status Date / Time No Known Allergies Allergy Verified 09/10/17 13:16 - Medications Medications: Current Medications Acetaminophen (Tylenol 325mg Tab) 650 mg PO Q6 PRN PRN Reason: Fever >100.4 F Last Admin: 09/15/17 13:14 Dose: 650 mg Aspirin (Ecotrin) 81 mg PO DAILY [facility] Last Admin: 09/15/17 10:02 Dose: 81 mg Dextrose (Dextrose 50% Inj) 0 ml IV STAT PRN; Protocol PRN Reason: Hypoglycemia Protocol Dextrose (Glutose 15) 0 gm PO ONCE PRN; Protocol PRN Reason: Hypoglycemia Protocol Epoetin Sarath (Procrit) 10,000 unit SC TTS [facility] Last Admin: 09/15/17 10:30 Dose: 10,000 unit Ferric Sodium Gluconate Complex (Ferrlecit) 125 mg IVPB DAILY [facility] Stop: 09/22/17 11:31 Last Admin: 09/15/17 10:30 Dose: 125 mg Glucagon (Glucagen Diagnostic Kit) 0 mg IM STAT PRN; Protocol PRN Reason: Hypoglycemia Protocol Heparin Sodium (Porcine) (Heparin) 5,000 units SC Q8 [facility] Last Admin: 09/15/17 13:17 Dose: 5,000 units Dextrose (Dextrose 5% In Water 1000 Ml) 1,000 mls @ 0 mls/hr IV .Q0M PRN; Protocol; Per Protocol PRN Reason: Hypoglycemia Protocol Furosemide 100 mg/ Sodium (Chloride) 100 mls @ 10 mls/hr IV .Q10H GLADYS; 10 MG/HR PRN Reason: Protocol Last Admin: 09/15/17 15:36 Dose: 10 mls/hr Propofol (Diprivan) 1,000 mg in 100 mls @ 1.429 mls/hr IV .Q24H PRN; Protocol; 5 MCG/KG/MIN PRN Reason: TITRATE PER MD ORDER Last Admin: 09/15/17 05:00 Dose: 30 mcg/kg/min, 8.573 mls/hr Vancomycin HCl (Vancocin 750mg/D5w 150 Ml) 150 mls @ 100 mls/hr IV DAILY [facility] Stop: 09/20/17 15:16 Last Admin: 09/15/17 15:36 Dose: 100 mls/hr Insulin Aspart (Novolog) 0 unit SC Q6H [facility] PRN Reason: Protocol Last Admin: 09/15/17 13:16 Dose: 2 unit Insulin Detemir (Levemir) 6 unit SC QAM [facility] Last Admin: 09/15/17 10:02 Dose: 6 unit Insulin Detemir (Levemir) 6 unit SC [facility] Last Admin: 09/14/17 21:16 Dose: 6 unit Ondansetron HCl (Zofran Inj) 4 mg IVP Q6 PRN PRN Reason: Nausea/Vomiting Last Admin: 09/13/17 11:01 Dose: 4 mg Pantoprazole Sodium (Protonix Inj) 40 mg IVP DAILY [facility] Last Admin: 09/15/17 10:03 Dose: 40 mg Rosuvastatin Calcium (Crestor) 2.5 mg PO HS [facility] Last Admin: 09/14/17 21:17 Dose: 2.5 mg Physical Exam - Constitutional Appears: Non-toxic, Cachectic, Chronically Ill - Head Exam Head Exam: ATRAUMATIC, NORMAL INSPECTION, NORMOCEPHALIC - Eye Exam Eye Exam: PERRL. absent: Scleral icterus - ENT Exam ENT Exam: Mucous Membranes Dry, Normal External Ear Exam - Neck Exam Neck exam: Negative for: Lymphadenopathy, Thyromegaly - Respiratory Exam Respiratory Exam: Decreased Breath Sounds, Rales, Rhonchi - Cardiovascular Exam Cardiovascular Exam: Tachycardia, +S1, +S2 - GI/Abdominal Exam GI & Abdominal Exam: Diminished Bowel Sounds, Distended, Soft. absent: Guarding , Rebound, Rigid, Tenderness - Rectal Exam Rectal Exam: Deferred - Exam Exam: NORMAL INSPECTION - Extremities Exam Extremities exam: Positive for: pedal pulses present. Negative for: calf tenderness, pedal edema, tenderness - Back Exam Back exam: absent: CVA tenderness (L), CVA tenderness (R) - Neurological Exam Neurological exam: Alert, CN II-XII Intact, Oriented x3 - Psychiatric Exam Psychiatric exam: Depressed - Skin Skin Exam: Dry Results - Vital Signs Recent Vital Signs: Last Vital Signs Temp 99.2 F 09/15/17 15:11 Pulse 96 H 09/15/17 16:00 Resp 16 09/15/17 16:00 BP 128/60 09/15/17 15:51 Pulse Ox 97 09/15/17 16:00 - Labs Result Diagrams: 09/15/17 17:56 09/15/17 06:26 Labs: Laboratory Results - last 24 hr 09/11/17 09/12/17 09/14/17 09:16 13:54 17:58 WBC RBC Hgb Hct MCV MCH MCHC RDW Plt Count MPV Neut % (Auto) Lymph % (Auto) [place] % (Auto) Eos % (Auto) Baso % (Auto) Neut # Lymph # [place] # Eos # Baso # Puncture Site pCO2 pO2 HCO3 ABG pH ABG Total CO2 ABG O2 Saturation ABG Base Excess ABG Hemoglobin ABG Carboxyhemoglobin POC ABG HHb (Measured) ABG Methemoglobin Guy Test ABG Potassium A-a O2 Difference Respiratory Index Hgb O2 Saturation Glucose Lactate Vent Mode Mechanical Rate FiO2 Tidal Volume PEEP Crit Value Called To Crit Value Called By Crit Value Read Back Blood Gas Notified Time Sodium Potassium Chloride Carbon Dioxide Anion Gap BUN Creatinine Est GFR ( Amer) Est GFR (Non-Af Amer) POC Glucose (mg/dL) 253 H Random Glucose Calcium Total Bilirubin AST ALT Alkaline Phosphatase Total Protein Albumin Albumin (PEP) 3.1 L Globulin Albumin/Globulin Ratio Zulzz-2-Sormrxvap 0.3 Bgwzz-5-Ksajsubmy 0.9 Fjfw-7-Siwapgai 0.3 L Qxpo-1-Sfhfepfy 0.3 Gamma Globulins 0.8 Abnorm Protein Band 1 TEST NOT PERFORMED Abnorm Protein Band 2 TEST NOT PERFORMED Abnorm Protein Band 3 TEST NOT PERFORMED Arterial Blood Potassium KARON & SPEP Interp See note Heparin-induced Plt Ab Negative 09/14/17 09/15/17 09/15/17 23:40 05:27 05:46 WBC RBC Hgb Hct MCV MCH MCHC RDW Plt Count MPV Neut % (Auto) Lymph % (Auto) [place] % (Auto) Eos % (Auto) Baso % (Auto) Neut # Lymph # [place] # Eos # Baso # Puncture Site Lb pCO2 30 L pO2 87 HCO3 35.5 H ABG pH 7.67 H* ABG Total CO2 35.5 H ABG O2 Saturation 96.9 ABG Base Excess 13.6 H ABG Hemoglobin 10.4 L ABG Carboxyhemoglobin 0.8 POC ABG HHb (Measured) 3.1 ABG Methemoglobin 0.2 Guy Test Na ABG Potassium A-a O2 Difference 161.0 Respiratory Index 1.9 Hgb O2 Saturation 95.9 Glucose Lactate Vent Mode Prvc Mechanical Rate 18 FiO2 40.0 Tidal Volume 500 PEEP 5 Crit Value Called To Felicia long/rn Crit Value Called By Doyle pearce/rt Crit Value Read Back Y Blood Gas Notified Time 550 Sodium Potassium Chloride Carbon Dioxide Anion Gap BUN Creatinine Est GFR ( Amer) Est GFR (Non-Af Amer) POC Glucose (mg/dL) 202 H 112 H Random Glucose Calcium Total Bilirubin AST ALT Alkaline Phosphatase Total Protein Albumin Albumin (PEP) Globulin Albumin/Globulin Ratio Qurpf-4-Xeysgsopp Ekfju-4-Ncuktaeli Xrpw-3-Wupqtagb Ibhb-3-Skmevgdp Gamma Globulins Abnorm Protein Band 1 Abnorm Protein Band 2 Abnorm Protein Band 3 Arterial Blood Potassium KARON & SPEP Interp Heparin-induced Plt Ab 09/15/17 09/15/17 09/15/17 06:26 06:26 12:02 WBC 8.3 RBC 4.13 Hgb 9.8 L Hct 30.4 L MCV 73.6 L MCH 23.6 L MCHC 32.1 L RDW 18.2 H Plt Count 257 MPV 9.5 Neut % (Auto) 73.5 Lymph % (Auto) 16.1 L [place] % (Auto) 9.8 Eos % (Auto) 0.0 Baso % (Auto) 0.6 Neut # 6.1 Lymph # 1.3 [place] # 0.8 Eos # 0.0 Baso # 0.0 Puncture Site pCO2 pO2 HCO3 ABG pH ABG Total CO2 ABG O2 Saturation ABG Base Excess ABG Hemoglobin ABG Carboxyhemoglobin POC ABG HHb (Measured) ABG Methemoglobin Guy Test ABG Potassium A-a O2 Difference Respiratory Index Hgb O2 Saturation Glucose Lactate Vent Mode Mechanical Rate FiO2 Tidal Volume PEEP Crit Value Called To Crit Value Called By Crit Value Read Back Blood Gas Notified Time Sodium 149 H Potassium 2.9 L Chloride 102 Carbon Dioxide 32 H Anion Gap 18 BUN 75 H Creatinine 2.4 H Est GFR ( Amer) 23 Est GFR (Non-Af Amer) 19 POC Glucose (mg/dL) 244 H Random Glucose 90 Calcium 8.3 L Total Bilirubin 1.0 AST 81 H ALT 113 H Alkaline Phosphatase 62 Total Protein 6.6 Albumin 3.1 L Albumin (PEP) Globulin 3.5 Albumin/Globulin Ratio 0.9 L Stfdz-9-Fjiswhbqk Ktfkh-8-Hfnmoeloa Qmcl-4-Rtvcsyos Nfhy-6-Vtfrbozy Gamma Globulins Abnorm Protein Band 1 Abnorm Protein Band 2 Abnorm Protein Band 3 Arterial Blood Potassium KARON & SPEP Interp Heparin-induced Plt Ab 09/15/17 17:48 WBC RBC Hgb Hct MCV MCH MCHC RDW Plt Count MPV Neut % (Auto) Lymph % (Auto) [place] % (Auto) Eos % (Auto) Baso % (Auto) Neut # Lymph # [place] # Eos # Baso # Puncture Site Rba pCO2 28 L pO2 143 H HCO3 35.0 H ABG pH 7.68 H* ABG Total CO2 33.9 H ABG O2 Saturation 97.5 ABG Base Excess 12.8 H ABG Hemoglobin ABG Carboxyhemoglobin POC ABG HHb (Measured) ABG Methemoglobin Guy Test Na ABG Potassium 5.4 H A-a O2 Difference 107.0 Respiratory Index 0.7 Hgb O2 Saturation Glucose 155 H Lactate 1.4 Vent Mode Prvc Mechanical Rate 16 FiO2 40.0 Tidal Volume 500 PEEP 5 Crit Value Called To [facility] nurse catherine Crit Value Called By Kalyan winston Crit Value Read Back Y Blood Gas Notified Time 1752 Sodium 151.0 H Potassium Chloride 118.0 H Carbon Dioxide Anion Gap BUN Creatinine Est GFR ( Amer) Est GFR (Non-Af Amer) POC Glucose (mg/dL) Random Glucose Calcium Total Bilirubin AST ALT Alkaline Phosphatase Total Protein Albumin Albumin (PEP) Globulin Albumin/Globulin Ratio Cntop-8-Zitvsgmmz Ckkis-2-Prgmdvkjd Pqdo-3-Ckxvxyrm Hxap-4-Xyypdaxi Gamma Globulins Abnorm Protein Band 1 Abnorm Protein Band 2 Abnorm Protein Band 3 Arterial Blood Potassium 5.4 H KARON & SPEP Interp Heparin-induced Plt Ab Assessment & Plan (1) BERYL (acute kidney injury) Status: Acute (2) Acute renal failure Status: Acute (3) CHF (congestive heart failure) Status: Acute (4) CKD (chronic kidney disease) stage 4, GFR 15-29 ml/min Status: Acute (5) Elevated brain natriuretic peptide (BNP) level Status: Acute (6) Hypotension Status: Acute (7) Non-STEMI (non-ST elevated myocardial infarction) Status: Acute - Assessment and Plan (Free Text) Assessment: cont rx for pneumonia ( presumptive) await cultures sputum prognosis guarded
[2017-09-15 18:47] LABS: ALB/GLOB RATIO 0.8 (1.0-2.1); BILIRUBIN,TOTAL 0.8 mg/dL (0.2-1.3); MAGNESIUM 1.9 mg/dL (1.6-2.3); POTASSIUM 4.9 mmol/L (3.6-5.2); TOTAL PROTEIN 7.1 g/dL (6.3-8.3)
--- NOTE | 2017-09-15 19:58 | CARD ---
APPROVED REPORT EKG Measurement Heart [id number] <Conclusion> Sinus rhythm with 1st degree AV block Anterior infarct, age undetermined Abnormal ECG
--- NOTE | 2017-09-15 20:05 | PN ---
DATE: SUBJECTIVE: The patient is currently sedated on a vent. No reported ventricular arrhythmia. PHYSICAL EXAMINATION: VITAL SIGNS: Blood pressure 134/65, heart rate 104, temperature 100.7. HEENT: Pale conjunctivae. CHEST: Scattered bilateral rhonchi. HEART: S1 and S2, regular. EXTREMITIES: No edema. LABORATORY DATA: SMA-7: Sodium 149, potassium 2.9, chloride 102, CO2 of 32, glucose 90, BUN 75, creatinine 2.4. Hemoglobin and hematocrit 9.8 and 30.4, white count and platelet count are within normal limits. Today's chest x-ray, very decreased density of the right upper lobe opacity. Right basal opacity is no longer appreciated. Blood culture is negative after 4 days. Sputum culture preliminary report is positive for Staph aureus. ASSESSMENT: 1. Consider underlying pneumonia. 2. Anemia. 3. Hypertension on presentation. 4. Consider non-ST elevation myocardial infarction. 5. Acute renal inefficiency 6. Hypokalemia RECOMMENDATIONS: Continue current Crestor at 2.5 mg daily, aspirin 81 mg once a day, Lasix drip. Continue Protonix 20 mg intravenously daily and subcutaneous heparin 5000 units q. 8 hours. KCL is being supplemented Discussed at length with the hearing care professional Elvis Dunbar MD MTDD
[2017-09-15] MEDS: Rosuvastatin Calcium 2.5 mg Tab PO SCH (21:53)
--- NOTE | 2017-09-15 21:54 | CARD ---
APPROVED REPORT EKG Measurement Heart [id number] CA [id number] <Conclusion> Sinus rhythm with 1st degree AV block Septal infarct, age undetermined Abnormal ECG
[2017-09-16] MEDS: (Novolog) Insulin Aspart, Recombinant 100 u/ml 10 ml vial SC SCH ×4 (00:42→17:32)
[2017-09-16 05:38] LABS: ABG ALLEN TEST POS; ABG MECHANICAL RATE 14; ARTERIAL BLOOD GAS MODE PRVC; ARTERIAL BLOOD HGB O2 SAT 91.3 % (95.0-98.0); ATERIAL BLOOD GAS PEEP 5; DRAW SITE RR; HHB 7.4 % (0.0-5.0); METHEMOGLOBIN 0.2 % (0.0-3.0)
[2017-09-16 06:29] LABS: BASO # 0.1 K/uL (0.0-0.2); BASO % 0.7 % (0.0-2.0); EOS % 0.3 % (0.0-4.0); HEMATOCRIT 31.9 % (34.0-47.0); LYMPH # 1.5 K/uL (1.0-4.3); LYMPH % 15.3 % (20.0-40.0); MEAN CELL VOLUME 74.8 fL (81.0-99.0); MEAN CORPUSCULAR HEMOGLOBIN 23.8 pg (27.0-31.0); MEAN CORPUSCULAR HGB CONC 31.8 g/dL (33.0-37.0); MEAN PLATELET VOLUME 9.2 fL (7.2-11.7); MONO # 0.8 K/uL (0.0-0.8); MONO % 8.7 % (0.0-10.0); NRBC % 0.3 % (0.0-2.0); RED CELL DISTRIBUTION WIDTH 18.7 % (11.5-14.5); WHITE BLOOD COUNT 9.5 K/uL (4.8-10.8)
[2017-09-16 06:40] LABS: ALB/GLOB RATIO 0.9 (1.0-2.1); BILIRUBIN,TOTAL 0.6 mg/dL (0.2-1.3); CALCIUM 8.2 mg/dl (8.6-10.4); MAGNESIUM 1.9 mg/dL (1.6-2.3); PHOSPHOROUS 2.6 mg/dL (2.5-4.5); POTASSIUM 3.6 mmol/L (3.6-5.2)
--- NOTE | 2017-09-16 09:00 | CP.CCUPN ---
<Bertin Wheat - Last Filed: 09/16/17 14:57> CCU Subjective - Physician Review Subjective (Free Text): PGY1 ICU Progress Note for Dr. Bhatia Patient seen and examined this morning at bedside. Patient intubated. ROS unattainable. CCU Objective - Vital Signs / Intake & Output Vital Signs (Last 4 hours): Vital Signs Temp Pulse Resp BP Pulse Ox 09/16/17 08:51 95 H 14 133/56 L 97 09/16/17 08:00 99.6 F 97 H 14 95 09/16/17 07:51 95 H 11 L 137/59 L 98 09/16/17 07:00 100 H 14 132/57 L 99 09/16/17 06:51 98 H 14 132/57 L 98 09/16/17 05:51 101 H 14 135/57 L 96 09/16/17 05:00 142/60 Intake and Output (Last 8hrs): Intake & Output 09/15/17 09/16/17 09/16/17 22:59 06:59 14:59 Intake Total 400 505 90 Output Total 690 1135 240 Balance -290 -630 -150 Weight 97 lb 8 oz Intake: Intake, IV Amount 180 10 Left Antecubital 80 10 Left Forearm 100 Right Antecubital 0 Oral 0 Tube Feeding 120 295 90 Other 100 200 Output: Urine 685 1135 240 Urethral (Garcia) 685 1135 240 Stool 5 Emesis 0 Other: # Bowel Movements 0 0 0 - Physical Exam Head: Positive for: Atraumatic, Normocephalic Extroacular Muscles: Positive for: EOMI Mouth: Positive for: Other (intubated) Respiratory/Chest: Positive for: Rhonchi (improving), Other (intubated). Negative for: Accessory Muscle Use Cardiovascular: Positive for: Regular Rate and Rhythm, Normal S1, S2 Abdomen: Negative for: Tenderness, Distention Lower Extremity: Positive for: Other (SCDs in place). Negative for: CALF TENDERNESS Neurological: Positive for: Other (intubated) Skin: Positive for: Warm, Dry Psychiatric: Positive for: Other (intubated) - Medications Active Medications: Active Medications Generic Name Dose Route Start Last Admin Trade Name Freq PRN Reason Stop Dose Admin Acetaminophen 650 mg 09/10/17 17:00 09/15/17 13:14 Tylenol 325mg Tab PO 650 mg Q6 PRN Administration Fever >100.4 F Aspirin 81 mg 09/11/17 10:00 09/15/17 10:02 Ecotrin PO 81 mg DAILY GLADYS Administration Dextrose 0 ml 09/10/17 17:21 Dextrose 50% Inj IV STAT PRN Hypoglycemia Protocol Protocol Dextrose 0 gm 09/10/17 17:21 Glutose 15 PO ONCE PRN Hypoglycemia Protocol Protocol Epoetin Sarath 10,000 unit 09/15/17 10:00 09/15/17 10:30 Procrit SC 10,000 unit TTS GLADYS Administration Ferric Sodium Gluconate Complex 125 mg 09/14/17 11:30 09/15/17 10:30 Ferrlecit IVPB 09/22/17 11:31 125 mg DAILY GLADYS Administration Glucagon 0 mg 09/10/17 17:21 Glucagen Diagnostic Kit IM STAT PRN Hypoglycemia Protocol Protocol Heparin Sodium (Porcine) 5,000 units 09/12/17 22:00 09/16/17 06:54 Heparin SC 5,000 units Q8 GLADYS Administration Dextrose 1,000 mls @ 0 mls/hr 09/10/17 17:21 Dextrose 5% In Water 1000 Ml IV .Q0M PRN Hypoglycemia Protocol Protocol Per Protocol Propofol 1,000 mg in 100 mls @ 1.429 mls/hr 09/13/17 12:08 09/15/17 10:00 Diprivan IV 0 mcg/kg/min .Q24H PRN 0 mls/hr TITRATE PER MD ORDER Titration Protocol 5 MCG/KG/MIN Vancomycin HCl 150 mls @ 100 mls/hr 09/15/17 15:15 09/15/17 15:36 Vancocin 750mg/D5w 150 Ml IV 09/20/17 15:16 100 mls/hr DAILY GLADYS Administration Insulin Aspart 0 unit 09/16/17 00:00 09/16/17 06:55 Novolog SC Not Given Q6 GLADYS Protocol Insulin Detemir 6 unit 09/15/17 10:00 09/15/17 10:02 Levemir SC 6 unit QAM GLADYS Administration Insulin Detemir 6 unit 09/14/17 22:00 09/15/17 21:54 Levemir SC 6 unit HS GLADYS Administration Ondansetron HCl 4 mg 09/10/17 17:00 09/13/17 11:01 Zofran Inj IVP 4 mg Q6 PRN Administration Nausea/Vomiting Pantoprazole Sodium 40 mg 09/11/17 10:00 09/15/17 10:03 Protonix Inj IVP 40 mg DAILY GLADYS Administration Rosuvastatin Calcium 2.5 mg 09/10/17 22:00 09/15/17 21:53 Crestor PO 2.5 mg HS GLADYS Administration - Patient Studies Lab Studies: Microbiology Studies 09/13/17 12:07 Gram Stain - Final Trachasp Sputum Culture - Preliminary Staphylococcus Aureus 09/10/17 15:00 Blood Culture - Final Blood NO GROWTH AFTER 5 DAYS Gram Stain - Final TEST NOT PERFORMED 09/10/17 13:45 Blood Culture - Final Blood NO GROWTH AFTER 5 DAYS Gram Stain - Final TEST NOT PERFORMED Lab Studies 09/16/17 09/16/17 09/16/17 Range/Units 06:18 06:18 06:18 WBC 9.5 (4.8-10.8) K/uL RBC 4.26 (3.80-5.20) Mil/uL Hgb 10.1 L (11.0-16.0) g/dL Hct 31.9 L (34.0-47.0) % MCV 74.8 L (81.0-99.0) fL MCH 23.8 L (27.0-31.0) pg MCHC 31.8 L (33.0-37.0) g/dL RDW 18.7 H (11.5-14.5) % Plt Count 257 (130-400) K/uL MPV 9.2 (7.2-11.7) fL Neut % (Auto) 75.0 (50.0-75.0) % Lymph % (Auto) 15.3 L (20.0-40.0) % [place] % (Auto) 8.7 (0.0-10.0) % Eos % (Auto) 0.3 (0.0-4.0) % Baso % (Auto) 0.7 (0.0-2.0) % Neut # 7.1 H (1.8-7.0) K/uL Lymph # 1.5 (1.0-4.3) K/uL [place] # 0.8 (0.0-0.8) K/uL Eos # 0.0 (0.0-0.7) K/uL Baso # 0.1 (0.0-0.2) K/uL Puncture Site pCO2 (35-45) mm/Hg pO2 (80-100) mm/Hg HCO3 (21-28) mmol/L ABG pH (7.35-7.45) ABG Total CO2 (22-28) mmol/L ABG O2 Saturation (95-98) % ABG Base Excess (-2.0-3.0) mmol/L ABG Hemoglobin (11.7-17.4) g/dL ABG Carboxyhemoglobin (0.5-1.5) % POC ABG HHb (Measured) (0.0-5.0) % ABG Methemoglobin (0.0-3.0) % Guy Test ABG Potassium (3.6-5.2) mmol/L A-a O2 Difference mm/Hg Respiratory Index Hgb O2 Saturation (95.0-98.0) % Sodium 151 H (132-148) mmol/l Chloride 105 (98-107) mmol/L Glucose (65-105) mg/dl Lactate (0.7-2.1) mmol/L Vent Mode Mechanical Rate FiO2 % Tidal Volume PEEP Crit Value Called To Crit Value Called By Crit Value Read Back Blood Gas Notified Time Potassium 3.6 (3.6-5.2) mmol/L Carbon Dioxide 40 H* (22-30) mmol/L Anion Gap 10 (10-20) BUN 75 H (7-17) mg/dL Creatinine 2.1 H (0.7-1.2) mg/dL Est GFR ( Amer) 27 Est GFR (Non-Af Amer) 23 POC Glucose (mg/dL) (65-110) mg/dL Random Glucose 103 (65-105) mg/dL Calcium 8.2 L (8.6-10.4) mg/dl Phosphorus 2.6 (2.5-4.5) mg/dL Magnesium 1.9 (1.6-2.3) mg/dL % Saturation (20-55) Ferritin ng/mL Total Bilirubin 0.6 (0.2-1.3) mg/dL AST 69 H D (14-36) U/L ALT 97 H (9-52) U/L Alkaline Phosphatase 72 (38-126) U/L Total Protein 7.0 (6.3-8.3) g/dL Albumin 3.2 L (3.5-5.0) g/dL Globulin 3.8 (2.2-3.9) gm/dL Albumin/Globulin Ratio 0.9 L (1.0-2.1) Arterial Blood Potassium (3.6-5.2) mmol/L Random Vancomycin 9.81 ug/mL 09/16/17 09/16/17 09/15/17 Range/Units 05:41 05:11 23:50 WBC (4.8-10.8) K/uL RBC (3.80-5.20) Mil/uL Hgb (11.0-16.0) g/dL Hct (34.0-47.0) % MCV (81.0-99.0) fL MCH (27.0-31.0) pg MCHC (33.0-37.0) g/dL RDW (11.5-14.5) % Plt Count (130-400) K/uL MPV (7.2-11.7) fL Neut % (Auto) (50.0-75.0) % Lymph % (Auto) (20.0-40.0) % [place] % (Auto) (0.0-10.0) % Eos % (Auto) (0.0-4.0) % Baso % (Auto) (0.0-2.0) % Neut # (1.8-7.0) K/uL Lymph # (1.0-4.3) K/uL [place] # (0.0-0.8) K/uL Eos # (0.0-0.7) K/uL Baso # (0.0-0.2) K/uL Puncture Site Rr pCO2 38 (35-45) mm/Hg pO2 57 L (80-100) mm/Hg HCO3 30.1 H (21-28) mmol/L ABG pH 7.51 H (7.35-7.45) ABG Total CO2 31.5 H (22-28) mmol/L ABG O2 Saturation 92.5 L (95-98) % ABG Base Excess 6.9 H (-2.0-3.0) mmol/L ABG Hemoglobin 13.5 (11.7-17.4) g/dL ABG Carboxyhemoglobin 1.0 (0.5-1.5) % POC ABG HHb (Measured) 7.4 H (0.0-5.0) % ABG Methemoglobin 0.2 (0.0-3.0) % Guy Test Pos ABG Potassium (3.6-5.2) mmol/L A-a O2 Difference 109.0 mm/Hg Respiratory Index 1.9 Hgb O2 Saturation 91.3 L (95.0-98.0) % Sodium (132-148) mmol/l Chloride (98-107) mmol/L Glucose (65-105) mg/dl Lactate (0.7-2.1) mmol/L Vent Mode Prvc Mechanical Rate 14 FiO2 30.0 % Tidal Volume 450 PEEP 5 Crit Value Called To Crit Value Called By Crit Value Read Back Blood Gas Notified Time Potassium (3.6-5.2) mmol/L Carbon Dioxide (22-30) mmol/L Anion Gap (10-20) BUN (7-17) mg/dL Creatinine (0.7-1.2) mg/dL Est GFR ( Amer) Est GFR (Non-Af Amer) POC Glucose (mg/dL) 130 H 206 H (65-110) mg/dL Random Glucose (65-105) mg/dL Calcium (8.6-10.4) mg/dl Phosphorus (2.5-4.5) mg/dL Magnesium (1.6-2.3) mg/dL % Saturation (20-55) Ferritin ng/mL Total Bilirubin (0.2-1.3) mg/dL AST (14-36) U/L ALT (9-52) U/L Alkaline Phosphatase (38-126) U/L Total Protein (6.3-8.3) g/dL Albumin (3.5-5.0) g/dL Globulin (2.2-3.9) gm/dL Albumin/Globulin Ratio (1.0-2.1) Arterial Blood Potassium (3.6-5.2) mmol/L Random Vancomycin ug/mL 09/15/17 09/15/17 09/15/17 Range/Units 18:11 17:56 17:56 WBC 9.0 (4.8-10.8) K/uL RBC 4.23 (3.80-5.20) Mil/uL Hgb 9.9 L (11.0-16.0) g/dL Hct 31.0 L (34.0-47.0) % MCV 73.3 L (81.0-99.0) fL MCH 23.4 L (27.0-31.0) pg MCHC 31.9 L (33.0-37.0) g/dL RDW 18.7 H (11.5-14.5) % Plt Count 287 (130-400) K/uL MPV 9.3 (7.2-11.7) fL Neut % (Auto) 75.0 (50.0-75.0) % Lymph % (Auto) 15.9 L (20.0-40.0) % [place] % (Auto) 7.6 (0.0-10.0) % Eos % (Auto) 0.1 (0.0-4.0) % Baso % (Auto) 1.4 (0.0-2.0) % Neut # 6.7 (1.8-7.0) K/uL Lymph # 1.4 (1.0-4.3) K/uL [place] # 0.7 (0.0-0.8) K/uL Eos # 0.0 (0.0-0.7) K/uL Baso # 0.1 (0.0-0.2) K/uL Puncture Site pCO2 (35-45) mm/Hg pO2 (80-100) mm/Hg HCO3 (21-28) mmol/L ABG pH (7.35-7.45) ABG Total CO2 (22-28) mmol/L ABG O2 Saturation (95-98) % ABG Base Excess (-2.0-3.0) mmol/L ABG Hemoglobin (11.7-17.4) g/dL ABG Carboxyhemoglobin (0.5-1.5) % POC ABG HHb (Measured) (0.0-5.0) % ABG Methemoglobin (0.0-3.0) % Guy Test ABG Potassium (3.6-5.2) mmol/L A-a O2 Difference mm/Hg Respiratory Index Hgb O2 Saturation (95.0-98.0) % Sodium 150 H (132-148) mmol/l Chloride 104 (98-107) mmol/L Glucose (65-105) mg/dl Lactate (0.7-2.1) mmol/L Vent Mode Mechanical Rate FiO2 % Tidal Volume PEEP Crit Value Called To Crit Value Called By Crit Value Read Back Blood Gas Notified Time Potassium 4.9 (3.6-5.2) mmol/L Carbon Dioxide 37 H (22-30) mmol/L Anion Gap 14 (10-20) BUN 76 H (7-17) mg/dL Creatinine 2.3 H (0.7-1.2) mg/dL Est GFR ( Amer) 25 Est GFR (Non-Af Amer) 20 POC Glucose (mg/dL) 172 H (65-110) mg/dL Random Glucose 156 H (65-105) mg/dL Calcium 8.0 L (8.6-10.4) mg/dl Phosphorus 2.0 L (2.5-4.5) mg/dL Magnesium 1.9 (1.6-2.3) mg/dL % Saturation (20-55) Ferritin ng/mL Total Bilirubin 0.8 (0.2-1.3) mg/dL AST 98 H D (14-36) U/L ALT 106 H (9-52) U/L Alkaline Phosphatase 69 (38-126) U/L Total Protein 7.1 (6.3-8.3) g/dL Albumin 3.2 L (3.5-5.0) g/dL Globulin 3.9 (2.2-3.9) gm/dL Albumin/Globulin Ratio 0.8 L (1.0-2.1) Arterial Blood Potassium (3.6-5.2) mmol/L Random Vancomycin ug/mL 09/15/17 09/15/17 09/15/17 Range/Units 17:56 17:56 17:48 WBC (4.8-10.8) K/uL RBC (3.80-5.20) Mil/uL Hgb (11.0-16.0) g/dL Hct (34.0-47.0) % MCV (81.0-99.0) fL MCH (27.0-31.0) pg MCHC (33.0-37.0) g/dL RDW (11.5-14.5) % Plt Count (130-400) K/uL MPV (7.2-11.7) fL Neut % (Auto) (50.0-75.0) % Lymph % (Auto) (20.0-40.0) % [place] % (Auto) (0.0-10.0) % Eos % (Auto) (0.0-4.0) % Baso % (Auto) (0.0-2.0) % Neut # (1.8-7.0) K/uL Lymph # (1.0-4.3) K/uL [place] # (0.0-0.8) K/uL Eos # (0.0-0.7) K/uL Baso # (0.0-0.2) K/uL Puncture Site Rba pCO2 28 L (35-45) mm/Hg pO2 143 H (80-100) mm/Hg HCO3 35.0 H (21-28) mmol/L ABG pH 7.68 H* (7.35-7.45) ABG Total CO2 33.9 H (22-28) mmol/L ABG O2 Saturation 97.5 (95-98) % ABG Base Excess 12.8 H (-2.0-3.0) mmol/L ABG Hemoglobin (11.7-17.4) g/dL ABG Carboxyhemoglobin (0.5-1.5) % POC ABG HHb (Measured) (0.0-5.0) % ABG Methemoglobin (0.0-3.0) % Guy Test Na ABG Potassium 5.4 H (3.6-5.2) mmol/L A-a O2 Difference 107.0 mm/Hg Respiratory Index 0.7 Hgb O2 Saturation (95.0-98.0) % Sodium 151.0 H (132-148) mmol/l Chloride 118.0 H (98-107) mmol/L Glucose 155 H (65-105) mg/dl Lactate 1.4 (0.7-2.1) mmol/L Vent Mode Prvc Mechanical Rate 16 FiO2 40.0 % Tidal Volume 500 PEEP 5 Crit Value Called To Icu nurse catherine Crit Value Called By Kalyan winston Crit Value Read Back Y Blood Gas Notified Time 1752 Potassium (3.6-5.2) mmol/L Carbon Dioxide (22-30) mmol/L Anion Gap (10-20) BUN (7-17) mg/dL Creatinine (0.7-1.2) mg/dL Est GFR ( Amer) Est GFR (Non-Af Amer) POC Glucose (mg/dL) (65-110) mg/dL Random Glucose (65-105) mg/dL Calcium (8.6-10.4) mg/dl Phosphorus 2.0 L (2.5-4.5) mg/dL Magnesium (1.6-2.3) mg/dL % Saturation 81 H (20-55) Ferritin 183.0 ng/mL Total Bilirubin (0.2-1.3) mg/dL AST (14-36) U/L ALT (9-52) U/L Alkaline Phosphatase (38-126) U/L Total Protein (6.3-8.3) g/dL Albumin (3.5-5.0) g/dL Globulin (2.2-3.9) gm/dL Albumin/Globulin Ratio (1.0-2.1) Arterial Blood Potassium 5.4 H (3.6-5.2) mmol/L Random Vancomycin ug/mL 09/15/17 Range/Units 12:02 WBC (4.8-10.8) K/uL RBC (3.80-5.20) Mil/uL Hgb (11.0-16.0) g/dL Hct (34.0-47.0) % MCV (81.0-99.0) fL MCH (27.0-31.0) pg MCHC (33.0-37.0) g/dL RDW (11.5-14.5) % Plt Count (130-400) K/uL MPV (7.2-11.7) fL Neut % (Auto) (50.0-75.0) % Lymph % (Auto) (20.0-40.0) % [place] % (Auto) (0.0-10.0) % Eos % (Auto) (0.0-4.0) % Baso % (Auto) (0.0-2.0) % Neut # (1.8-7.0) K/uL Lymph # (1.0-4.3) K/uL [place] # (0.0-0.8) K/uL Eos # (0.0-0.7) K/uL Baso # (0.0-0.2) K/uL Puncture Site pCO2 (35-45) mm/Hg pO2 (80-100) mm/Hg HCO3 (21-28) mmol/L ABG pH (7.35-7.45) ABG Total CO2 (22-28) mmol/L ABG O2 Saturation (95-98) % ABG Base Excess (-2.0-3.0) mmol/L ABG Hemoglobin (11.7-17.4) g/dL ABG Carboxyhemoglobin (0.5-1.5) % POC ABG HHb (Measured) (0.0-5.0) % ABG Methemoglobin (0.0-3.0) % Guy Test ABG Potassium (3.6-5.2) mmol/L A-a O2 Difference mm/Hg Respiratory Index Hgb O2 Saturation (95.0-98.0) % Sodium (132-148) mmol/l Chloride (98-107) mmol/L Glucose (65-105) mg/dl Lactate (0.7-2.1) mmol/L Vent Mode Mechanical Rate FiO2 % Tidal Volume PEEP Crit Value Called To Crit Value Called By Crit Value Read Back Blood Gas Notified Time Potassium (3.6-5.2) mmol/L Carbon Dioxide (22-30) mmol/L Anion Gap (10-20) BUN (7-17) mg/dL Creatinine (0.7-1.2) mg/dL Est GFR ( Amer) Est GFR (Non-Af Amer) POC Glucose (mg/dL) 244 H (65-110) mg/dL Random Glucose (65-105) mg/dL Calcium (8.6-10.4) mg/dl Phosphorus (2.5-4.5) mg/dL Magnesium (1.6-2.3) mg/dL % Saturation (20-55) Ferritin ng/mL Total Bilirubin (0.2-1.3) mg/dL AST (14-36) U/L ALT (9-52) U/L Alkaline Phosphatase (38-126) U/L Total Protein (6.3-8.3) g/dL Albumin (3.5-5.0) g/dL Globulin (2.2-3.9) gm/dL Albumin/Globulin Ratio (1.0-2.1) Arterial Blood Potassium (3.6-5.2) mmol/L Random Vancomycin ug/mL Laboratory Results - last 24 hr 09/15/17 09/15/17 09/15/17 12:02 17:48 17:56 WBC RBC Hgb Hct MCV MCH MCHC RDW Plt Count MPV Neut % (Auto) Lymph % (Auto) [place] % (Auto) Eos % (Auto) Baso % (Auto) Neut # Lymph # [place] # Eos # Baso # Puncture Site Rba pCO2 28 L pO2 143 H HCO3 35.0 H ABG pH 7.68 H* ABG Total CO2 33.9 H ABG O2 Saturation 97.5 ABG Base Excess 12.8 H ABG Hemoglobin ABG Carboxyhemoglobin POC ABG HHb (Measured) ABG Methemoglobin Guy Test Na ABG Potassium 5.4 H A-a O2 Difference 107.0 Respiratory Index 0.7 Hgb O2 Saturation Sodium 151.0 H Chloride 118.0 H Glucose 155 H Lactate 1.4 Vent Mode Prvc Mechanical Rate 16 FiO2 40.0 Tidal Volume 500 PEEP 5 Crit Value Called To Icu nurse catherine Crit Value Called By Kalyan winston Crit Value Read Back Y Blood Gas Notified Time 1755 Potassium Carbon Dioxide Anion Gap BUN Creatinine Est GFR ( Amer) Est GFR (Non-Af Amer) POC Glucose (mg/dL) 244 H Random Glucose Calcium Phosphorus 2.0 L Magnesium % Saturation Ferritin 183.0 Total Bilirubin AST ALT Alkaline Phosphatase Total Protein Albumin Globulin Albumin/Globulin Ratio Arterial Blood Potassium 5.4 H Random Vancomycin 09/15/17 09/15/17 09/15/17 17:56 17:56 17:56 WBC 9.0 RBC 4.23 Hgb 9.9 L Hct 31.0 L MCV 73.3 L MCH 23.4 L MCHC 31.9 L RDW 18.7 H Plt Count 287 MPV 9.3 Neut % (Auto) 75.0 Lymph % (Auto) 15.9 L [place] % (Auto) 7.6 Eos % (Auto) 0.1 Baso % (Auto) 1.4 Neut # 6.7 Lymph # 1.4 [place] # 0.7 Eos # 0.0 Baso # 0.1 Puncture Site pCO2 pO2 HCO3 ABG pH ABG Total CO2 ABG O2 Saturation ABG Base Excess ABG Hemoglobin ABG Carboxyhemoglobin POC ABG HHb (Measured) ABG Methemoglobin Guy Test ABG Potassium A-a O2 Difference Respiratory Index Hgb O2 Saturation Sodium 150 H Chloride 104 Glucose Lactate Vent Mode Mechanical Rate FiO2 Tidal Volume PEEP Crit Value Called To Crit Value Called By Crit Value Read Back Blood Gas Notified Time Potassium 4.9 Carbon Dioxide 37 H Anion Gap 14 BUN 76 H Creatinine 2.3 H Est GFR ( Amer) 25 Est GFR (Non-Af Amer) 20 POC Glucose (mg/dL) Random Glucose 156 H Calcium 8.0 L Phosphorus 2.0 L Magnesium 1.9 % Saturation 81 H Ferritin Total Bilirubin 0.8 AST 98 H D ALT 106 H Alkaline Phosphatase 69 Total Protein 7.1 Albumin 3.2 L Globulin 3.9 Albumin/Globulin Ratio 0.8 L Arterial Blood Potassium Random Vancomycin 09/15/17 09/15/17 09/16/17 18:11 23:50 05:11 WBC RBC Hgb Hct MCV MCH MCHC RDW Plt Count MPV Neut % (Auto) Lymph % (Auto) [place] % (Auto) Eos % (Auto) Baso % (Auto) Neut # Lymph # [place] # Eos # Baso # Puncture Site Rr pCO2 38 pO2 57 L HCO3 30.1 H ABG pH 7.51 H ABG Total CO2 31.5 H ABG O2 Saturation 92.5 L ABG Base Excess 6.9 H ABG Hemoglobin 13.5 ABG Carboxyhemoglobin 1.0 POC ABG HHb (Measured) 7.4 H ABG Methemoglobin 0.2 Guy Test Pos ABG Potassium A-a O2 Difference 109.0 Respiratory Index 1.9 Hgb O2 Saturation 91.3 L Sodium Chloride Glucose Lactate Vent Mode Prvc Mechanical Rate 14 FiO2 30.0 Tidal Volume 450 PEEP 5 Crit Value Called To Crit Value Called By Crit Value Read Back Blood Gas Notified Time Potassium Carbon Dioxide Anion Gap BUN Creatinine Est GFR ( Amer) Est GFR (Non-Af Amer) POC Glucose (mg/dL) 172 H 206 H Random Glucose Calcium Phosphorus Magnesium % Saturation Ferritin Total Bilirubin AST ALT Alkaline Phosphatase Total Protein Albumin Globulin Albumin/Globulin Ratio Arterial Blood Potassium Random Vancomycin 09/16/17 09/16/17 09/16/17 05:41 06:18 06:18 WBC 9.5 RBC 4.26 Hgb 10.1 L Hct 31.9 L MCV 74.8 L MCH 23.8 L MCHC 31.8 L RDW 18.7 H Plt Count 257 MPV 9.2 Neut % (Auto) 75.0 Lymph % (Auto) 15.3 L [place] % (Auto) 8.7 Eos % (Auto) 0.3 Baso % (Auto) 0.7 Neut # 7.1 H Lymph # 1.5 [place] # 0.8 Eos # 0.0 Baso # 0.1 Puncture Site pCO2 pO2 HCO3 ABG pH ABG Total CO2 ABG O2 Saturation ABG Base Excess ABG Hemoglobin ABG Carboxyhemoglobin POC ABG HHb (Measured) ABG Methemoglobin Guy Test ABG Potassium A-a O2 Difference Respiratory Index Hgb O2 Saturation Sodium 151 H Chloride 105 Glucose Lactate Vent Mode Mechanical Rate FiO2 Tidal Volume PEEP Crit Value Called To Crit Value Called By Crit Value Read Back Blood Gas Notified Time Potassium 3.6 Carbon Dioxide 40 H* Anion Gap 10 BUN 75 H Creatinine 2.1 H Est GFR ( Amer) 27 Est GFR (Non-Af Amer) 23 POC Glucose (mg/dL) 130 H Random Glucose 103 Calcium 8.2 L Phosphorus 2.6 Magnesium 1.9 % Saturation Ferritin Total Bilirubin 0.6 AST 69 H D ALT 97 H Alkaline Phosphatase 72 Total Protein 7.0 Albumin 3.2 L Globulin 3.8 Albumin/Globulin Ratio 0.9 L Arterial Blood Potassium Random Vancomycin 09/16/17 06:18 WBC RBC Hgb Hct MCV MCH MCHC RDW Plt Count MPV Neut % (Auto) Lymph % (Auto) [place] % (Auto) Eos % (Auto) Baso % (Auto) Neut # Lymph # [place] # Eos # Baso # Puncture Site pCO2 pO2 HCO3 ABG pH ABG Total CO2 ABG O2 Saturation ABG Base Excess ABG Hemoglobin ABG Carboxyhemoglobin POC ABG HHb (Measured) ABG Methemoglobin Guy Test ABG Potassium A-a O2 Difference Respiratory Index Hgb O2 Saturation Sodium Chloride Glucose Lactate Vent Mode Mechanical Rate FiO2 Tidal Volume PEEP Crit Value Called To Crit Value Called By Crit Value Read Back Blood Gas Notified Time Potassium Carbon Dioxide Anion Gap BUN Creatinine Est GFR ( Amer) Est GFR (Non-Af Amer) POC Glucose (mg/dL) Random Glucose Calcium Phosphorus Magnesium % Saturation Ferritin Total Bilirubin AST ALT Alkaline Phosphatase Total Protein Albumin Globulin Albumin/Globulin Ratio Arterial Blood Potassium Random Vancomycin 9.81 EKG/Cardiology Studies: Cardiology / EKG Studies 09/15/17 08:40 EKG [ELECTROCARDIOGRAM] Stat Comment: Mode Of Transportation: Reason For Exam: monitor changes Fingerstick Blood Sugar Results: 130 Review of Systems - Review of Systems Systems not reviewed;Unavailable: Intubated Critical Care Progress Note - Nutrition Nutrition: Nutrition Category Date Time Status Heart Healthy Diet [DIET] Diets 09/10/17 Dinner Active Assessment/Plan - Assessment and Plan (Free Text) Assessment: Patient is an 81 year old female presenting with NSTEMI, acute renal failure, acute hypoxemic respiratory failure, septic shock and severe metabolic acidosis Plan: Respiratory: Intubated CXR 09/14 - Decreasing density of right upper lobe opacity. Right basilar opacity is no longer appreciable. No other abnormal opacity appreciated. Lines and tubes unchanged. LE duplex - negative b/l ABG - pH 7.51/pCO2 38/pO2 57/HCO3 31.5 - on vent 450/30/14/5 - switched to CPAP + PS 5/10 (trial) - plan for extubation this afternoon - given Diamox 500mg IV q12h WBC stale at 9.5 Procalcitonin 0.41 f/u repeat ABG Renal: Nephro consult, Dr. Alatorre, help appreciated Cr improving to 2.1 from 2.4 (09/15) BUN 75 from 76 (09/15) Fluid balance ~ (neg)1150mL over past 24hrs Renal US - Small size echogenic kidneys suggestive of medical renal disease. No evidence of hydronephrosis. Due to patient now being alkalotic and improving kidney function, dialysis will be on hold for the time being Sodium Bicarb discontinued Lasix drip @10mg/hour - discontinued Lasix 40 mg IVP q12h f/u Nephro recs Cardio: Cardio consult, Dr. Dunbar, help appreciated ECHO 09/10 - EF 50-55%, anterior and apical septum hypokinetic; MR mod.-severe ; TR mod.; Pulmonary HTN mod-severe BP controlled EKG 09/12 - no acute ST segment elevations Aspirin 81mg PO daily Crestor 2.5 mg PO HS Trop 0.646/0.485/0.551/1.03 pro-BNP 80406 Neuro: MRI of brain for dizziness - cancelled Propofol drip - discontinued Endo: ISS Levemir 6 units in AM and HS HgbA1c 7.8 Hem/Onc: Hem/Onc, Dr. Lentz consulted, help appreciated Hgb stable 9.8 Retic 2.2 Electrolytes: K+ 3.6 f/u repeat blood work - after electrolytes repleted Prophylactic Care: Heparin 5000u SC q8 Protonix 40mg IVP daily Case discussed with Dr. Johnnie Denton Mary Alice PGY1 <Leonardo Bhatia - Last Filed: 09/16/17 16:40> CCU Objective - Vital Signs / Intake & Output Vital Signs (Last 4 hours): Vital Signs Temp Pulse Resp BP Pulse Ox 09/16/17 16:00 98.4 F 109 H 29 H 95 09/16/17 15:51 108 H 30 H 142/52 L 95 09/16/17 15:00 108 H 28 H 96 09/16/17 14:51 107 H 31 H 143/59 L 97 09/16/17 14:00 106 H 22 99 09/16/17 13:51 108 H 25 H 147/61 98 09/16/17 13:17 136/53 L 09/16/17 13:00 103 H 23 99 09/16/17 12:58 101 H 24 136/53 L 99 09/16/17 12:51 101 H 24 136/53 L 99 Intake and Output (Last 8hrs): Intake & Output 09/16/17 09/16/17 09/16/17 06:59 14:59 22:59 Intake Total 505 1090 105 Output Total 1135 960 350 Balance -630 130 -245 Weight 97 lb 8 oz Intake: Intake, IV Amount 10 30 60 Left Antecubital 10 Left Forearm 30 60 Tube Feeding 295 360 45 Other 200 700 Output: Urine 1135 960 350 Urethral (Garcia) 1135 960 350 Other: # Bowel Movements 0 1 - Medications Active Medications: Active Medications Generic Name Dose Route Start Last Admin Trade Name Freq PRN Reason Stop Dose Admin Acetaminophen 650 mg 09/10/17 17:00 09/15/17 13:14 Tylenol 325mg Tab PO 650 mg Q6 PRN Administration Fever >100.4 F Acetazolamide 500 mg 09/16/17 11:45 09/16/17 12:04 Diamox 500 Mg Inj IV 500 mg Q12H GLADYS Administration Aspirin 81 mg 09/11/17 10:00 09/16/17 09:14 Ecotrin PO 81 mg DAILY GLADYS Administration Dextrose 0 ml 09/10/17 17:21 Dextrose 50% Inj IV STAT PRN Hypoglycemia Protocol Protocol Dextrose 0 gm 09/10/17 17:21 Glutose 15 PO ONCE PRN Hypoglycemia Protocol Protocol Epoetin Sarath 10,000 unit 09/15/17 10:00 09/15/17 10:30 Procrit SC 10,000 unit TTS GLADYS Administration Ferric Sodium Gluconate Complex 125 mg 09/14/17 11:30 09/16/17 10:13 Ferrlecit IVPB 09/22/17 11:31 125 mg DAILY GLADYS Administration Furosemide 40 mg 09/16/17 12:45 09/16/17 13:17 Lasix IVP 40 mg Q12 GLADYS Administration Glucagon 0 mg 09/10/17 17:21 Glucagen Diagnostic Kit IM STAT PRN Hypoglycemia Protocol Protocol Heparin Sodium (Porcine) 5,000 units 09/12/17 22:00 09/16/17 14:47 Heparin SC 5,000 units Q8 GLADYS Administration Dextrose 1,000 mls @ 0 mls/hr 09/10/17 17:21 Dextrose 5% In Water 1000 Ml IV .Q0M PRN Hypoglycemia Protocol Protocol Per Protocol Propofol 1,000 mg in 100 mls @ 1.429 mls/hr 09/13/17 12:08 09/15/17 10:00 Diprivan IV 0 mcg/kg/min .Q24H PRN 0 mls/hr TITRATE PER MD ORDER Titration Protocol 5 MCG/KG/MIN Insulin Aspart 0 unit 09/16/17 00:00 09/16/17 12:03 Novolog SC Not Given Q6 GLADYS Protocol Insulin Detemir 6 unit 09/15/17 10:00 09/16/17 09:14 Levemir SC 6 unit QAM GLADYS Administration Insulin Detemir 6 unit 09/14/17 22:00 09/15/17 21:54 Levemir SC 6 unit HS GLADYS Administration Ondansetron HCl 4 mg 09/10/17 17:00 09/13/17 11:01 Zofran Inj IVP 4 mg Q6 PRN Administration Nausea/Vomiting Pantoprazole Sodium 40 mg 09/11/17 10:00 09/16/17 09:14 Protonix Inj IVP 40 mg DAILY GLADYS Administration Rosuvastatin Calcium 2.5 mg 09/10/17 22:00 09/15/17 21:53 Crestor PO 2.5 mg HS GLADYS Administration - Patient Studies Lab Studies: Microbiology Studies 09/13/17 12:07 Gram Stain - Final Trachasp Sputum Culture - Final Staphylococcus Aureus 09/10/17 15:00 Blood Culture - Final Blood NO GROWTH AFTER 5 DAYS Gram Stain - Final TEST NOT PERFORMED 09/10/17 13:45 Blood Culture - Final Blood NO GROWTH AFTER 5 DAYS Gram Stain - Final TEST NOT PERFORMED Lab Studies 09/16/17 09/16/17 09/16/17 Range/Units 11:51 06:18 06:18 WBC (4.8-10.8) K/uL RBC (3.80-5.20) Mil/uL Hgb (11.0-16.0) g/dL Hct (34.0-47.0) % MCV (81.0-99.0) fL MCH (27.0-31.0) pg MCHC (33.0-37.0) g/dL RDW (11.5-14.5) % Plt Count (130-400) K/uL MPV (7.2-11.7) fL Neut % (Auto) (50.0-75.0) % Lymph % (Auto) (20.0-40.0) % [place] % (Auto) (0.0-10.0) % Eos % (Auto) (0.0-4.0) % Baso % (Auto) (0.0-2.0) % Neut # (1.8-7.0) K/uL Lymph # (1.0-4.3) K/uL [place] # (0.0-0.8) K/uL Eos # (0.0-0.7) K/uL Baso # (0.0-0.2) K/uL Puncture Site pCO2 (35-45) mm/Hg pO2 (80-100) mm/Hg HCO3 (21-28) mmol/L ABG pH (7.35-7.45) ABG Total CO2 (22-28) mmol/L ABG O2 Saturation (95-98) % ABG Base Excess (-2.0-3.0) mmol/L ABG Hemoglobin (11.7-17.4) g/dL ABG Carboxyhemoglobin (0.5-1.5) % POC ABG HHb (Measured) (0.0-5.0) % ABG Methemoglobin (0.0-3.0) % Guy Test ABG Potassium (3.6-5.2) mmol/L A-a O2 Difference mm/Hg Respiratory Index Hgb O2 Saturation (95.0-98.0) % Sodium 151 H (132-148) mmol/l Chloride 105 (98-107) mmol/L Glucose (65-105) mg/dl Lactate (0.7-2.1) mmol/L Vent Mode Mechanical Rate FiO2 % Tidal Volume PEEP Crit Value Called To Crit Value Called By Crit Value Read Back Blood Gas Notified Time Potassium 3.6 (3.6-5.2) mmol/L Carbon Dioxide 40 H* (22-30) mmol/L Anion Gap 10 (10-20) BUN 75 H (7-17) mg/dL Creatinine 2.1 H (0.7-1.2) mg/dL Est GFR ( Amer) 27 Est GFR (Non-Af Amer) 23 POC Glucose (mg/dL) 168 H (65-110) mg/dL Random Glucose 103 (65-105) mg/dL Calcium 8.2 L (8.6-10.4) mg/dl Phosphorus 2.6 (2.5-4.5) mg/dL Magnesium 1.9 (1.6-2.3) mg/dL % Saturation (20-55) Ferritin ng/mL Total Bilirubin 0.6 (0.2-1.3) mg/dL AST 69 H D (14-36) U/L ALT 97 H (9-52) U/L Alkaline Phosphatase 72 (38-126) U/L Total Protein 7.0 (6.3-8.3) g/dL Albumin 3.2 L (3.5-5.0) g/dL Globulin 3.8 (2.2-3.9) gm/dL Albumin/Globulin Ratio 0.9 L (1.0-2.1) Arterial Blood Potassium (3.6-5.2) mmol/L Random Vancomycin 9.81 ug/mL 09/16/17 09/16/17 09/16/17 Range/Units 06:18 05:41 05:11 WBC 9.5 (4.8-10.8) K/uL RBC 4.26 (3.80-5.20) Mil/uL Hgb 10.1 L (11.0-16.0) g/dL Hct 31.9 L (34.0-47.0) % MCV 74.8 L (81.0-99.0) fL MCH 23.8 L (27.0-31.0) pg MCHC 31.8 L (33.0-37.0) g/dL RDW 18.7 H (11.5-14.5) % Plt Count 257 (130-400) K/uL MPV 9.2 (7.2-11.7) fL Neut % (Auto) 75.0 (50.0-75.0) % Lymph % (Auto) 15.3 L (20.0-40.0) % [place] % (Auto) 8.7 (0.0-10.0) % Eos % (Auto) 0.3 (0.0-4.0) % Baso % (Auto) 0.7 (0.0-2.0) % Neut # 7.1 H (1.8-7.0) K/uL Lymph # 1.5 (1.0-4.3) K/uL [place] # 0.8 (0.0-0.8) K/uL Eos # 0.0 (0.0-0.7) K/uL Baso # 0.1 (0.0-0.2) K/uL Puncture Site Rr pCO2 38 (35-45) mm/Hg pO2 57 L (80-100) mm/Hg HCO3 30.1 H (21-28) mmol/L ABG pH 7.51 H (7.35-7.45) ABG Total CO2 31.5 H (22-28) mmol/L ABG O2 Saturation 92.5 L (95-98) % ABG Base Excess 6.9 H (-2.0-3.0) mmol/L ABG Hemoglobin 13.5 (11.7-17.4) g/dL ABG Carboxyhemoglobin 1.0 (0.5-1.5) % POC ABG HHb (Measured) 7.4 H (0.0-5.0) % ABG Methemoglobin 0.2 (0.0-3.0) % Guy Test Pos ABG Potassium (3.6-5.2) mmol/L A-a O2 Difference 109.0 mm/Hg Respiratory Index 1.9 Hgb O2 Saturation 91.3 L (95.0-98.0) % Sodium (132-148) mmol/l Chloride (98-107) mmol/L Glucose (65-105) mg/dl Lactate (0.7-2.1) mmol/L Vent Mode Prvc Mechanical Rate 14 FiO2 30.0 % Tidal Volume 450 PEEP 5 Crit Value Called To Crit Value Called By Crit Value Read Back Blood Gas Notified Time Potassium (3.6-5.2) mmol/L Carbon Dioxide (22-30) mmol/L Anion Gap (10-20) BUN (7-17) mg/dL Creatinine (0.7-1.2) mg/dL Est GFR ( Amer) Est GFR (Non-Af Amer) POC Glucose (mg/dL) 130 H (65-110) mg/dL Random Glucose (65-105) mg/dL Calcium (8.6-10.4) mg/dl Phosphorus (2.5-4.5) mg/dL Magnesium (1.6-2.3) mg/dL % Saturation (20-55) Ferritin ng/mL Total Bilirubin (0.2-1.3) mg/dL AST (14-36) U/L ALT (9-52) U/L Alkaline Phosphatase (38-126) U/L Total Protein (6.3-8.3) g/dL Albumin (3.5-5.0) g/dL Globulin (2.2-3.9) gm/dL Albumin/Globulin Ratio (1.0-2.1) Arterial Blood Potassium (3.6-5.2) mmol/L Random Vancomycin ug/mL 09/15/17 09/15/17 09/15/17 Range/Units 23:50 18:11 17:56 WBC (4.8-10.8) K/uL RBC (3.80-5.20) Mil/uL Hgb (11.0-16.0) g/dL Hct (34.0-47.0) % MCV (81.0-99.0) fL MCH (27.0-31.0) pg MCHC (33.0-37.0) g/dL RDW (11.5-14.5) % Plt Count (130-400) K/uL MPV (7.2-11.7) fL Neut % (Auto) (50.0-75.0) % Lymph % (Auto) (20.0-40.0) % [place] % (Auto) (0.0-10.0) % Eos % (Auto) (0.0-4.0) % Baso % (Auto) (0.0-2.0) % Neut # (1.8-7.0) K/uL Lymph # (1.0-4.3) K/uL [place] # (0.0-0.8) K/uL Eos # (0.0-0.7) K/uL Baso # (0.0-0.2) K/uL Puncture Site pCO2 (35-45) mm/Hg pO2 (80-100) mm/Hg HCO3 (21-28) mmol/L ABG pH (7.35-7.45) ABG Total CO2 (22-28) mmol/L ABG O2 Saturation (95-98) % ABG Base Excess (-2.0-3.0) mmol/L ABG Hemoglobin (11.7-17.4) g/dL ABG Carboxyhemoglobin (0.5-1.5) % POC ABG HHb (Measured) (0.0-5.0) % ABG Methemoglobin (0.0-3.0) % Guy Test ABG Potassium (3.6-5.2) mmol/L A-a O2 Difference mm/Hg Respiratory Index Hgb O2 Saturation (95.0-98.0) % Sodium 150 H (132-148) mmol/l Chloride 104 (98-107) mmol/L Glucose (65-105) mg/dl Lactate (0.7-2.1) mmol/L Vent Mode Mechanical Rate FiO2 % Tidal Volume PEEP Crit Value Called To Crit Value Called By Crit Value Read Back Blood Gas Notified Time Potassium 4.9 (3.6-5.2) mmol/L Carbon Dioxide 37 H (22-30) mmol/L Anion Gap 14 (10-20) BUN 76 H (7-17) mg/dL Creatinine 2.3 H (0.7-1.2) mg/dL Est GFR ( Amer) 25 Est GFR (Non-Af Amer) 20 POC Glucose (mg/dL) 206 H 172 H (65-110) mg/dL Random Glucose 156 H (65-105) mg/dL Calcium 8.0 L (8.6-10.4) mg/dl Phosphorus 2.0 L (2.5-4.5) mg/dL Magnesium 1.9 (1.6-2.3) mg/dL % Saturation (20-55) Ferritin ng/mL Total Bilirubin 0.8 (0.2-1.3) mg/dL AST 98 H D (14-36) U/L ALT 106 H (9-52) U/L Alkaline Phosphatase 69 (38-126) U/L Total Protein 7.1 (6.3-8.3) g/dL Albumin 3.2 L (3.5-5.0) g/dL Globulin 3.9 (2.2-3.9) gm/dL Albumin/Globulin Ratio 0.8 L (1.0-2.1) Arterial Blood Potassium (3.6-5.2) mmol/L Random Vancomycin ug/mL 09/15/17 09/15/17 09/15/17 Range/Units 17:56 17:56 17:56 WBC 9.0 (4.8-10.8) K/uL RBC 4.23 (3.80-5.20) Mil/uL Hgb 9.9 L (11.0-16.0) g/dL Hct 31.0 L (34.0-47.0) % MCV 73.3 L (81.0-99.0) fL MCH 23.4 L (27.0-31.0) pg MCHC 31.9 L (33.0-37.0) g/dL RDW 18.7 H (11.5-14.5) % Plt Count 287 (130-400) K/uL MPV 9.3 (7.2-11.7) fL Neut % (Auto) 75.0 (50.0-75.0) % Lymph % (Auto) 15.9 L (20.0-40.0) % [place] % (Auto) 7.6 (0.0-10.0) % Eos % (Auto) 0.1 (0.0-4.0) % Baso % (Auto) 1.4 (0.0-2.0) % Neut # 6.7 (1.8-7.0) K/uL Lymph # 1.4 (1.0-4.3) K/uL [place] # 0.7 (0.0-0.8) K/uL Eos # 0.0 (0.0-0.7) K/uL Baso # 0.1 (0.0-0.2) K/uL Puncture Site pCO2 (35-45) mm/Hg pO2 (80-100) mm/Hg HCO3 (21-28) mmol/L ABG pH (7.35-7.45) ABG Total CO2 (22-28) mmol/L ABG O2 Saturation (95-98) % ABG Base Excess (-2.0-3.0) mmol/L ABG Hemoglobin (11.7-17.4) g/dL ABG Carboxyhemoglobin (0.5-1.5) % POC ABG HHb (Measured) (0.0-5.0) % ABG Methemoglobin (0.0-3.0) % Guy Test ABG Potassium (3.6-5.2) mmol/L A-a O2 Difference mm/Hg Respiratory Index Hgb O2 Saturation (95.0-98.0) % Sodium (132-148) mmol/l Chloride (98-107) mmol/L Glucose (65-105) mg/dl Lactate (0.7-2.1) mmol/L Vent Mode Mechanical Rate FiO2 % Tidal Volume PEEP Crit Value Called To Crit Value Called By Crit Value Read Back Blood Gas Notified Time Potassium (3.6-5.2) mmol/L Carbon Dioxide (22-30) mmol/L Anion Gap (10-20) BUN (7-17) mg/dL Creatinine (0.7-1.2) mg/dL Est GFR ( Amer) Est GFR (Non-Af Amer) POC Glucose (mg/dL) (65-110) mg/dL Random Glucose (65-105) mg/dL Calcium (8.6-10.4) mg/dl Phosphorus 2.0 L (2.5-4.5) mg/dL Magnesium (1.6-2.3) mg/dL % Saturation 81 H (20-55) Ferritin 183.0 ng/mL Total Bilirubin (0.2-1.3) mg/dL AST (14-36) U/L ALT (9-52) U/L Alkaline Phosphatase (38-126) U/L Total Protein (6.3-8.3) g/dL Albumin (3.5-5.0) g/dL Globulin (2.2-3.9) gm/dL Albumin/Globulin Ratio (1.0-2.1) Arterial Blood Potassium (3.6-5.2) mmol/L Random Vancomycin ug/mL 09/15/17 Range/Units 17:48 WBC (4.8-10.8) K/uL RBC (3.80-5.20) Mil/uL Hgb (11.0-16.0) g/dL Hct (34.0-47.0) % MCV (81.0-99.0) fL MCH (27.0-31.0) pg MCHC (33.0-37.0) g/dL RDW (11.5-14.5) % Plt Count (130-400) K/uL MPV (7.2-11.7) fL Neut % (Auto) (50.0-75.0) % Lymph % (Auto) (20.0-40.0) % [place] % (Auto) (0.0-10.0) % Eos % (Auto) (0.0-4.0) % Baso % (Auto) (0.0-2.0) % Neut # (1.8-7.0) K/uL Lymph # (1.0-4.3) K/uL [place] # (0.0-0.8) K/uL Eos # (0.0-0.7) K/uL Baso # (0.0-0.2) K/uL Puncture Site Rba pCO2 28 L (35-45) mm/Hg pO2 143 H (80-100) mm/Hg HCO3 35.0 H (21-28) mmol/L ABG pH 7.68 H* (7.35-7.45) ABG Total CO2 33.9 H (22-28) mmol/L ABG O2 Saturation 97.5 (95-98) % ABG Base Excess 12.8 H (-2.0-3.0) mmol/L ABG Hemoglobin (11.7-17.4) g/dL ABG Carboxyhemoglobin (0.5-1.5) % POC ABG HHb (Measured) (0.0-5.0) % ABG Methemoglobin (0.0-3.0) % Guy Test Na ABG Potassium 5.4 H (3.6-5.2) mmol/L A-a O2 Difference 107.0 mm/Hg Respiratory Index 0.7 Hgb O2 Saturation (95.0-98.0) % Sodium 151.0 H (132-148) mmol/l Chloride 118.0 H (98-107) mmol/L Glucose 155 H (65-105) mg/dl Lactate 1.4 (0.7-2.1) mmol/L Vent Mode Prvc Mechanical Rate 16 FiO2 40.0 % Tidal Volume 500 PEEP 5 Crit Value Called To [facility] nurse catherine Crit Value Called By Kalyan rt Crit Value Read Back Y Blood Gas Notified Time 1752 Potassium (3.6-5.2) mmol/L Carbon Dioxide (22-30) mmol/L Anion Gap (10-20) BUN (7-17) mg/dL Creatinine (0.7-1.2) mg/dL Est GFR ( Amer) Est GFR (Non-Af Amer) POC Glucose (mg/dL) (65-110) mg/dL Random Glucose (65-105) mg/dL Calcium (8.6-10.4) mg/dl Phosphorus (2.5-4.5) mg/dL Magnesium (1.6-2.3) mg/dL % Saturation (20-55) Ferritin ng/mL Total Bilirubin (0.2-1.3) mg/dL AST (14-36) U/L ALT (9-52) U/L Alkaline Phosphatase (38-126) U/L Total Protein (6.3-8.3) g/dL Albumin (3.5-5.0) g/dL Globulin (2.2-3.9) gm/dL Albumin/Globulin Ratio (1.0-2.1) Arterial Blood Potassium 5.4 H (3.6-5.2) mmol/L Random Vancomycin ug/mL Laboratory Results - last 24 hr 09/15/17 09/15/17 09/15/17 17:48 17:56 17:56 WBC RBC Hgb Hct MCV MCH MCHC RDW Plt Count MPV Neut % (Auto) Lymph % (Auto) [place] % (Auto) Eos % (Auto) Baso % (Auto) Neut # Lymph # [place] # Eos # Baso # Puncture Site Rba pCO2 28 L pO2 143 H HCO3 35.0 H ABG pH 7.68 H* ABG Total CO2 33.9 H ABG O2 Saturation 97.5 ABG Base Excess 12.8 H ABG Hemoglobin ABG Carboxyhemoglobin POC ABG HHb (Measured) ABG Methemoglobin Guy Test Na ABG Potassium 5.4 H A-a O2 Difference 107.0 Respiratory Index 0.7 Hgb O2 Saturation Sodium 151.0 H Chloride 118.0 H Glucose 155 H Lactate 1.4 Vent Mode Prvc Mechanical Rate 16 FiO2 40.0 Tidal Volume 500 PEEP 5 Crit Value Called To [facility] nurse catherine Crit Value Called By Kalyan rt Crit Value Read Back Y Blood Gas Notified Time 1752 Potassium Carbon Dioxide Anion Gap BUN Creatinine Est GFR ( Amer) Est GFR (Non-Af Amer) POC Glucose (mg/dL) Random Glucose Calcium Phosphorus 2.0 L Magnesium % Saturation 81 H Ferritin 183.0 Total Bilirubin AST ALT Alkaline Phosphatase Total Protein Albumin Globulin Albumin/Globulin Ratio Arterial Blood Potassium 5.4 H Random Vancomycin 09/15/17 09/15/17 09/15/17 17:56 17:56 18:11 WBC 9.0 RBC 4.23 Hgb 9.9 L Hct 31.0 L MCV 73.3 L MCH 23.4 L MCHC 31.9 L RDW 18.7 H Plt Count 287 MPV 9.3 Neut % (Auto) 75.0 Lymph % (Auto) 15.9 L [place] % (Auto) 7.6 Eos % (Auto) 0.1 Baso % (Auto) 1.4 Neut # 6.7 Lymph # 1.4 [place] # 0.7 Eos # 0.0 Baso # 0.1 Puncture Site pCO2 pO2 HCO3 ABG pH ABG Total CO2 ABG O2 Saturation ABG Base Excess ABG Hemoglobin ABG Carboxyhemoglobin POC ABG HHb (Measured) ABG Methemoglobin Guy Test ABG Potassium A-a O2 Difference Respiratory Index Hgb O2 Saturation Sodium 150 H Chloride 104 Glucose Lactate Vent Mode Mechanical Rate FiO2 Tidal Volume PEEP Crit Value Called To Crit Value Called By Crit Value Read Back Blood Gas Notified Time Potassium 4.9 Carbon Dioxide 37 H Anion Gap 14 BUN 76 H Creatinine 2.3 H Est GFR ( Amer) 25 Est GFR (Non-Af Amer) 20 POC Glucose (mg/dL) 172 H Random Glucose 156 H Calcium 8.0 L Phosphorus 2.0 L Magnesium 1.9 % Saturation Ferritin Total Bilirubin 0.8 AST 98 H D ALT 106 H Alkaline Phosphatase 69 Total Protein 7.1 Albumin 3.2 L Globulin 3.9 Albumin/Globulin Ratio 0.8 L Arterial Blood Potassium Random Vancomycin 09/15/17 09/16/17 09/16/17 23:50 05:11 05:41 WBC RBC Hgb Hct MCV MCH MCHC RDW Plt Count MPV Neut % (Auto) Lymph % (Auto) [place] % (Auto) Eos % (Auto) Baso % (Auto) Neut # Lymph # [place] # Eos # Baso # Puncture Site Rr pCO2 38 pO2 57 L HCO3 30.1 H ABG pH 7.51 H ABG Total CO2 31.5 H ABG O2 Saturation 92.5 L ABG Base Excess 6.9 H ABG Hemoglobin 13.5 ABG Carboxyhemoglobin 1.0 POC ABG HHb (Measured) 7.4 H ABG Methemoglobin 0.2 Guy Test Pos ABG Potassium A-a O2 Difference 109.0 Respiratory Index 1.9 Hgb O2 Saturation 91.3 L Sodium Chloride Glucose Lactate Vent Mode Prvc Mechanical Rate 14 FiO2 30.0 Tidal Volume 450 PEEP 5 Crit Value Called To Crit Value Called By Crit Value Read Back Blood Gas Notified Time Potassium Carbon Dioxide Anion Gap BUN Creatinine Est GFR ( Amer) Est GFR (Non-Af Amer) POC Glucose (mg/dL) 206 H 130 H Random Glucose Calcium Phosphorus Magnesium % Saturation Ferritin Total Bilirubin AST ALT Alkaline Phosphatase Total Protein Albumin Globulin Albumin/Globulin Ratio Arterial Blood Potassium Random Vancomycin 09/16/17 09/16/17 09/16/17 06:18 06:18 06:18 WBC 9.5 RBC 4.26 Hgb 10.1 L Hct 31.9 L MCV 74.8 L MCH 23.8 L MCHC 31.8 L RDW 18.7 H Plt Count 257 MPV 9.2 Neut % (Auto) 75.0 Lymph % (Auto) 15.3 L [place] % (Auto) 8.7 Eos % (Auto) 0.3 Baso % (Auto) 0.7 Neut # 7.1 H Lymph # 1.5 [place] # 0.8 Eos # 0.0 Baso # 0.1 Puncture Site pCO2 pO2 HCO3 ABG pH ABG Total CO2 ABG O2 Saturation ABG Base Excess ABG Hemoglobin ABG Carboxyhemoglobin POC ABG HHb (Measured) ABG Methemoglobin Guy Test ABG Potassium A-a O2 Difference Respiratory Index Hgb O2 Saturation Sodium 151 H Chloride 105 Glucose Lactate Vent Mode Mechanical Rate FiO2 Tidal Volume PEEP Crit Value Called To Crit Value Called By Crit Value Read Back Blood Gas Notified Time Potassium 3.6 Carbon Dioxide 40 H* Anion Gap 10 BUN 75 H Creatinine 2.1 H Est GFR ( Amer) 27 Est GFR (Non-Af Amer) 23 POC Glucose (mg/dL) Random Glucose 103 Calcium 8.2 L Phosphorus 2.6 Magnesium 1.9 % Saturation Ferritin Total Bilirubin 0.6 AST 69 H D ALT 97 H Alkaline Phosphatase 72 Total Protein 7.0 Albumin 3.2 L Globulin 3.8 Albumin/Globulin Ratio 0.9 L Arterial Blood Potassium Random Vancomycin 9.81 09/16/17 11:51 WBC RBC Hgb Hct MCV MCH MCHC RDW Plt Count MPV Neut % (Auto) Lymph % (Auto) [place] % (Auto) Eos % (Auto) Baso % (Auto) Neut # Lymph # [place] # Eos # Baso # Puncture Site pCO2 pO2 HCO3 ABG pH ABG Total CO2 ABG O2 Saturation ABG Base Excess ABG Hemoglobin ABG Carboxyhemoglobin POC ABG HHb (Measured) ABG Methemoglobin Guy Test ABG Potassium A-a O2 Difference Respiratory Index Hgb O2 Saturation Sodium Chloride Glucose Lactate Vent Mode Mechanical Rate FiO2 Tidal Volume PEEP Crit Value Called To Crit Value Called By Crit Value Read Back Blood Gas Notified Time Potassium Carbon Dioxide Anion Gap BUN Creatinine Est GFR ( Amer) Est GFR (Non-Af Amer) POC Glucose (mg/dL) 168 H Random Glucose Calcium Phosphorus Magnesium % Saturation Ferritin Total Bilirubin AST ALT Alkaline Phosphatase Total Protein Albumin Globulin Albumin/Globulin Ratio Arterial Blood Potassium Random Vancomycin Critical Care Progress Note - Nutrition Nutrition: Nutrition Category Date Time Status Heart Healthy Diet [DIET] Diets 09/10/17 Dinner Active Attending/Attestation - Attestation I have personally seen and examined this patient.: Yes I have fully participated in the care of the patient.: Yes I have reviewed all pertinent clinical information: Yes Notes (Text): 09/16/17 16:39 I have seen and examined the patient. Medical records, lab studies, and imaging were reviewed by me and a management plan was formulated on multidisciplinary rounds with resident Dr. Kyle. I agree with their documented assessment and plan. Patient appears clinically improved, will extubate today and monitor. Continue current therapy for suspected acute exacerbation of chronic obstructive pulmonary disease. Critical Care Time 35 minutes. Multi-disciplinary rounds were performed with house staff, nursing, speech therapy, respiratory therapy, pharmacy and nutrition with integrated input from the primary team/attending and other consulting services. The documented time is cumulative and includes review of patient data/exams/labs/chart review and examination of the patient on rounds and throughout the day; time is exclusive of any procedures or teaching time.
[2017-09-16] MEDS: Insulin Detemir 100 units/ml Vial (Levemir) SC SCH ×2 (09:14→21:08)
[2017-09-16] MEDS: Ferric Sodium Gluconat Complex 62.5 mg/5 ml Vial IVPB SCH (10:13)
--- NOTE | 2017-09-16 11:00 | RAD ---
HISTORY: intubated COMPARISON: 09/15/2017 FINDINGS: LUNGS: Right upper lobe opacity has resolved. Questionable opacity medial right lung base. Followup advised. . PLEURA: Possible trace left pleural effusion. No evidence of right pleural effusion. No pneumothorax. CARDIOVASCULAR: Normal heart size. ET tube and NG tube unchanged in position. OSSEOUS STRUCTURES: No significant abnormalities. VISUALIZED UPPER ABDOMEN: Normal. OTHER FINDINGS: None. IMPRESSION: Resolved right upper lobe opacity. Questionable opacity medial right lung base. Followup.
[2017-09-16] MEDS: Vancomycin 750mg/D5W 150 ml 150 ML IV SCH (11:56)
--- NOTE | 2017-09-16 12:14 | CP.PCM.PN ---
Subjective - Date & Time of Evaluation Date of Evaluation: 09/16/17 Time of Evaluation: 11:50 - Subjective Subjective: Hospitalist Progress Note Patient was seen and examined at 11:50 AM 09/16/17 ICU Bed 6 Currently upon FULL ROS is not possible as patient is intubated - Head Exam Head Exam: NORMAL INSPECTION - Eye Exam Eye Exam: Pupils are round and reactive to light. absent: Nystagmus, Scleral icterus - ENT Exam ENT Exam: Mucous Membranes Moist - Respiratory Exam Respiratory Exam: Bibasilar Inspiratory Crackles. absent: Wheezes, Stridor - Cardiovascular Exam Cardiovascular Exam: REGULAR RHYTHM, +S1, +S2 - GI/Abdominal Exam GI & Abdominal Exam: Soft, Normal Bowel Sounds. absent: Distended, Firm, Guarding, Rigid, Tenderness, Rebound - Extremities Exam Extremities Exam: Normal Capillary Refill. absent: Pedal Edema, Tenderness - Back Exam Back Exam: absent: CVA tenderness (L), CVA tenderness (R) - Neurological Exam Neurological Exam: Alert, Awake, Oriented x3 - Skin Skin Exam: Dry, Intact, Normal Color, Warm Additional comments: Assessment and Plan (1) Acute Renal Failure Assessment & Plan: * Nephrology Dr. Chowdhury/Landry is following * BUN/Cr worsened and patient and patient is on trial of Lasix 09/12/17. Cr improved on 09/15/17 and 09/16/17 and holding off on HD for now. Status: Acute (2) Grade I Diastolic Heart Failure Echocardiogram 09/10/17 showed EF of 58% with hypokinetic anterior and apical septum and Grade I Abnormal Relaxation Patter. Moderate Tricuspid regurgitation and moderate to severe pulmonary HTN Elevated ProBNP upon admission Chest X Ray 09/13/17 showed increased pulmonary vascular congestion Chest X Ray 09/14/17 showed decreased right side infiltrate and limited left perihilar infiltrate remaining Status: Acute (3) Acute Respiratory Failure Likely secondary to the increased pulmonary vascular congestion from the blood transfusions on 09/12/17, Acute Renal Failure, and Diastolic Heart Failure Patient intubated and placed on vent by ICU team 09/13/17 Currently patient is on trial of CPAP and for possible extubation Status: Acute (4) Leukocytosis Resolved Fever of 100.7 on 09/15/17 and patient was started on Vancomycin secondary to Sputum Culture 09/13/17 shows preliminary Staph aureus. However, Chest X Ray 09/16/17 did not show any infiltrates and as the leukocytosis has resolved, ICU Team discontinued the Vancomycin. Blood Culture 09/10/17 is Negative To Date Urine Culture 09/10/17 showed multiple species therefore another Urine Culture ordered 09/13/[address] Smith Consider CT Chest if this worsens Status: Acute (5) Elevated Troponin Assessment & Plan: * Cardiology Dr. Dunbar on board-->help appreciated * Elevated Troponin: 0.6460-->0.4850-->0.5510 * On Aspirin 81mg PO daily Status: Acute (6) Diabetes 2 Assessment & Plan: HgBa1c: 7.8 Hypoglycemia protocol Crestor 2.5mg PO qHS Off metformin, glipizide on admission given acute renal failure Started on Levemir 6 units QAM and HS 09/14/17 based upon 24 hours ISS requirement Aspart sliding scale Status: Chronic (7) Hypertension Assessment & Plan: Off anti-hypertensives (Hydralazine, Metoprolol XL, Amlodipine, Losartan/HCTZ, Lasix, Imdur) because of hypotension upon admission Currently stable Status: Chronic (8) Anemia Assessment & Plan: retic count: 2.2 Iron: 44 TIBC: 220 iron saturation: 20 Ferritin: 31 Ferrlicit 125 mg IV 1x/day through 09/22/17 HgB dropped to 7.0 and 2 units PRBC transfused 09/12/17. HgB/Hct is currently stable. Serum Immunofixation with faint band in IgG and Lambda likely reactive. Repeat Serum Immunofixation in 3 to 6 months as outpatient. Heme/Onc Dr. Toña Lentz Stool Occult Blood 09/10/17 and 09/13/17 are negative Status: Chronic (9). Elevated LFTs Declining (10) Polypharmacy Assessment & Plan: Held home medications on admission including PO diabetic and diuretic medications given acute renal failure Status: Acute (11) Vertigo Assessment & Plan: CT Head: negative on admission Patient has seen previously Dr. 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 Objective - Vital Signs/Intake and Output Vital Signs (last 24 hours): Temp Pulse Resp BP Pulse Ox 99.6 F 97 H 23 132/55 L 98 09/16/17 08:00 09/16/17 10:00 09/16/17 10:00 09/16/17 09:51 09/16/17 10:00 Intake and Output: 09/16/17 09/16/17 06:59 18:59 Intake Total 765 480 Output Total 1645 440 Balance -880 40 - Medications Medications: Current Medications Acetaminophen (Tylenol 325mg Tab) 650 mg PO Q6 PRN PRN Reason: Fever >100.4 F Last Admin: 09/15/17 13:14 Dose: 650 mg Acetazolamide (Diamox 500 Mg Inj) 500 mg IV Q12H [facility] Last Admin: 09/16/17 12:04 Dose: 500 mg Aspirin (Ecotrin) 81 mg PO DAILY [facility] Last Admin: 09/16/17 09:14 Dose: 81 mg Dextrose (Dextrose 50% Inj) 0 ml IV STAT PRN; Protocol PRN Reason: Hypoglycemia Protocol Dextrose (Glutose 15) 0 gm PO ONCE PRN; Protocol PRN Reason: Hypoglycemia Protocol Epoetin Sarath (Procrit) 10,000 unit SC TTS [facility] Last Admin: 09/15/17 10:30 Dose: 10,000 unit Ferric Sodium Gluconate Complex (Ferrlecit) 125 mg IVPB DAILY [facility] Stop: 09/22/17 11:31 Last Admin: 09/16/17 10:13 Dose: 125 mg Glucagon (Glucagen Diagnostic Kit) 0 mg IM STAT PRN; Protocol PRN Reason: Hypoglycemia Protocol Heparin Sodium (Porcine) (Heparin) 5,000 units SC Q8 [facility] Last Admin: 09/16/17 06:54 Dose: 5,000 units Dextrose (Dextrose 5% In Water 1000 Ml) 1,000 mls @ 0 mls/hr IV .Q0M PRN; Protocol; Per Protocol PRN Reason: Hypoglycemia Protocol Propofol (Diprivan) 1,000 mg in 100 mls @ 1.429 mls/hr IV .Q24H PRN; Protocol; 5 MCG/KG/MIN PRN Reason: TITRATE PER MD ORDER Last Titration: 09/15/17 10:00 Dose: 0 mcg/kg/min, 0 mls/hr Insulin Aspart (Novolog) 0 unit SC Q6 [facility] PRN Reason: Protocol Last Admin: 09/16/17 12:03 Dose: Not Given Insulin Detemir (Levemir) 6 unit SC QAM [facility] Last Admin: 09/16/17 09:14 Dose: 6 unit Insulin Detemir (Levemir) 6 unit SC HS [facility] Last Admin: 09/15/17 21:54 Dose: 6 unit Ondansetron HCl (Zofran Inj) 4 mg IVP Q6 PRN PRN Reason: Nausea/Vomiting Last Admin: 09/13/17 11:01 Dose: 4 mg Pantoprazole Sodium (Protonix Inj) 40 mg IVP DAILY [facility] Last Admin: 09/16/17 09:14 Dose: 40 mg Rosuvastatin Calcium (Crestor) 2.5 mg PO HS [facility] Last Admin: 09/15/17 21:53 Dose: 2.5 mg - Labs Labs: 09/16/17 06:18 09/16/17 06:18 PT 10.3 SECONDS (9.7-12.2) 09/10/17 13:52 INR 0.9 09/10/17 13:52 APTT 34 SECONDS (21-34) 09/10/17 13:52
--- NOTE | 2017-09-16 13:06 | CP.PCM.PN ---
Subjective - Date & Time of Evaluation Date of Evaluation: 09/16/17 Time of Evaluation: 13:03 - Subjective Subjective: intubated, on CPAP [id number] ml this AM lasix gtt stopped CXR cleared -no CHF pattern creat decreased to 2.1 more alkalotic -from diuretics and Na increased told family would not need dialysis now Objective - Vital Signs/Intake and Output Vital Signs (last 24 hours): Temp Pulse Resp BP Pulse Ox 99.6 F 97 H 22 129/52 L 100 09/16/17 08:00 09/16/17 12:00 09/16/17 12:00 09/16/17 11:51 09/16/17 12:00 Intake and Output: 09/16/17 09/16/17 06:59 18:59 Intake Total 765 570 Output Total 1645 560 Balance -880 10 - Medications Medications: Current Medications Acetaminophen (Tylenol 325mg Tab) 650 mg PO Q6 PRN PRN Reason: Fever >100.4 F Last Admin: 09/15/17 13:14 Dose: 650 mg Acetazolamide (Diamox 500 Mg Inj) 500 mg IV Q12H [facility] Last Admin: 09/16/17 12:04 Dose: 500 mg Aspirin (Ecotrin) 81 mg PO DAILY [facility] Last Admin: 09/16/17 09:14 Dose: 81 mg Dextrose (Dextrose 50% Inj) 0 ml IV STAT PRN; Protocol PRN Reason: Hypoglycemia Protocol Dextrose (Glutose 15) 0 gm PO ONCE PRN; Protocol PRN Reason: Hypoglycemia Protocol Epoetin Sarath (Procrit) 10,000 unit SC TTS [facility] Last Admin: 09/15/17 10:30 Dose: 10,000 unit Ferric Sodium Gluconate Complex (Ferrlecit) 125 mg IVPB DAILY [facility] Stop: 09/22/17 11:31 Last Admin: 09/16/17 10:13 Dose: 125 mg Furosemide (Lasix) 40 mg IVP Q12 [facility] Glucagon (Glucagen Diagnostic Kit) 0 mg IM STAT PRN; Protocol PRN Reason: Hypoglycemia Protocol Heparin Sodium (Porcine) (Heparin) 5,000 units SC Q8 [facility] Last Admin: 09/16/17 06:54 Dose: 5,000 units Dextrose (Dextrose 5% In Water 1000 Ml) 1,000 mls @ 0 mls/hr IV .Q0M PRN; Protocol; Per Protocol PRN Reason: Hypoglycemia Protocol Propofol (Diprivan) 1,000 mg in 100 mls @ 1.429 mls/hr IV .Q24H PRN; Protocol; 5 MCG/KG/MIN PRN Reason: TITRATE PER MD ORDER Last Titration: 09/15/17 10:00 Dose: 0 mcg/kg/min, 0 mls/hr Insulin Aspart (Novolog) 0 unit SC Q6 [facility] PRN Reason: Protocol Last Admin: 09/16/17 12:03 Dose: Not Given Insulin Detemir (Levemir) 6 unit SC QAM [facility] Last Admin: 09/16/17 09:14 Dose: 6 unit Insulin Detemir (Levemir) 6 unit SC HS [facility] Last Admin: 09/15/17 21:54 Dose: 6 unit Ondansetron HCl (Zofran Inj) 4 mg IVP Q6 PRN PRN Reason: Nausea/Vomiting Last Admin: 09/13/17 11:01 Dose: 4 mg Pantoprazole Sodium (Protonix Inj) 40 mg IVP DAILY [facility] Last Admin: 09/16/17 09:14 Dose: 40 mg Rosuvastatin Calcium (Crestor) 2.5 mg PO HS [facility] Last Admin: 09/15/17 21:53 Dose: 2.5 mg - Labs Labs: 09/16/17 06:18 09/16/17 06:18 PT 10.3 SECONDS (9.7-12.2) 09/10/17 13:52 INR 0.9 09/10/17 13:52 APTT 34 SECONDS (21-34) 09/10/17 13:52 - Constitutional Appears: Non-toxic, Chronically Ill - Head Exam Head Exam: ATRAUMATIC, NORMAL INSPECTION - Eye Exam Eye Exam: EOMI, Normal appearance - Neck Exam Neck Exam: Normal Inspection. absent: Tenderness - Respiratory Exam Respiratory Exam: Clear to Ausculation Bilateral, Respiratory Distress - Cardiovascular Exam Cardiovascular Exam: REGULAR RHYTHM, +S1 - GI/Abdominal Exam GI & Abdominal Exam: Soft. absent: Tenderness - Extremities Exam Extremities Exam: Normal Inspection. absent: Tenderness - Neurological Exam Neurological Exam: Awake, CN II-XII Intact - Skin Skin Exam: Dry, Warm Assessment and Plan (1) BERYL (acute kidney injury) Status: Acute (2) CHF (congestive heart failure) Status: Acute (3) Chronic hemorrhagic anemia Status: Acute (4) Elevated brain natriuretic peptide (BNP) level Status: Acute (5) Elevated troponin I level Status: Acute (6) Non-STEMI (non-ST elevated myocardial infarction) Status: Acute (7) Transient hypotension Status: Acute (8) CKD (chronic kidney disease) stage 4, GFR 15-29 ml/min Status: Acute - Assessment and Plan (Free Text) Plan: change to intermittent lasix IV- can taper down replete K no dialysis planned increase free water intake
--- NOTE | 2017-09-16 14:49 | PN ---
DATE: FOLLOWUP SUBJECTIVE: The patient is still on a ventilator. She is on pressor support. FiO2 of 30%. No reported ventricular arrhythmia or hypotension. PHYSICAL EXAMINATION: VITAL SIGNS: Blood pressure 136/83, heart rate 103, temperature 99.6, respirations 14. HEENT: Pale conjunctivae. CHEST: Minimal bilateral rhonchi. HEART: S1 and S2 regular. ABDOMEN: Soft. EXTREMITIES: No edema. LABORATORY DATA: Today's hemoglobin and hematocrit 10.1 and 31.9. White count and platelet count are within normal limit. SMA-7: Sodium 151, potassium 3.6, chloride 105, CO2 of 40, glucose 103, BUN 75, creatinine 2.1, magnesium is 1.9. Blood cultures are negative after 5 days. I did review Dr. Smith's evaluation and the assessment is presumptive pneumonia. ASSESSMENT: 1. Respiratory failure. 2. Improved hypotension. 3. Presumptive Staphylococcus pneumonia. 4. [id number] myocardial infarction. 5. Acute renal insufficiency. RECOMMENDATIONS: Continue Crestor at 2.5 mg once a day, aspirin 81 mg once a day, subcutaneous heparin 5000 units q. 8 hours. Continue intravenous potassium replacement and we will consider cardiac catheterization when the patient is more stable from the pulmonary point of view and after Nephrology clearance. Elvis Dunbar MD
--- NOTE | 2017-09-16 16:56 | CP.PCM.PN ---
Subjective - Date & Time of Evaluation Date of Evaluation: 09/16/17 Time of Evaluation: 09:00 - Subjective Subjective: awsake alert intubated family at bedside NAD Objective - Vital Signs/Intake and Output Vital Signs (last 24 hours): Temp Pulse Resp BP Pulse Ox 98.4 F 109 H 29 H 142/52 L 95 09/16/17 16:00 09/16/17 16:00 09/16/17 16:00 09/16/17 15:51 09/16/17 16:00 Intake and Output: 09/16/17 09/16/17 06:59 18:59 Intake Total 765 1195 Output Total 1645 1310 Balance -880 -115 - Medications Medications: Current Medications Acetaminophen (Tylenol 325mg Tab) 650 mg PO Q6 PRN PRN Reason: Fever >100.4 F Last Admin: 09/15/17 13:14 Dose: 650 mg Acetazolamide (Diamox 500 Mg Inj) 500 mg IV Q12H [facility] Last Admin: 09/16/17 12:04 Dose: 500 mg Aspirin (Ecotrin) 81 mg PO DAILY [facility] Last Admin: 09/16/17 09:14 Dose: 81 mg Dextrose (Dextrose 50% Inj) 0 ml IV STAT PRN; Protocol PRN Reason: Hypoglycemia Protocol Dextrose (Glutose 15) 0 gm PO ONCE PRN; Protocol PRN Reason: Hypoglycemia Protocol Epoetin Sarath (Procrit) 10,000 unit SC TTS [facility] Last Admin: 09/15/17 10:30 Dose: 10,000 unit Ferric Sodium Gluconate Complex (Ferrlecit) 125 mg IVPB DAILY [facility] Stop: 09/22/17 11:31 Last Admin: 09/16/17 10:13 Dose: 125 mg Furosemide (Lasix) 40 mg IVP Q12 [facility] Last Admin: 09/16/17 13:17 Dose: 40 mg Glucagon (Glucagen Diagnostic Kit) 0 mg IM STAT PRN; Protocol PRN Reason: Hypoglycemia Protocol Heparin Sodium (Porcine) (Heparin) 5,000 units SC Q8 [facility] Last Admin: 09/16/17 14:47 Dose: 5,000 units Dextrose (Dextrose 5% In Water 1000 Ml) 1,000 mls @ 0 mls/hr IV .Q0M PRN; Protocol; Per Protocol PRN Reason: Hypoglycemia Protocol Propofol (Diprivan) 1,000 mg in 100 mls @ 1.429 mls/hr IV .Q24H PRN; Protocol; 5 MCG/KG/MIN PRN Reason: TITRATE PER MD ORDER Last Titration: 09/15/17 10:00 Dose: 0 mcg/kg/min, 0 mls/hr Insulin Aspart (Novolog) 0 unit SC Q6 [facility] PRN Reason: Protocol Last Admin: 09/16/17 12:03 Dose: Not Given Insulin Detemir (Levemir) 6 unit SC QAM [facility] Last Admin: 09/16/17 09:14 Dose: 6 unit Insulin Detemir (Levemir) 6 unit SC HS [facility] Last Admin: 09/15/17 21:54 Dose: 6 unit Ondansetron HCl (Zofran Inj) 4 mg IVP Q6 PRN PRN Reason: Nausea/Vomiting Last Admin: 09/13/17 11:01 Dose: 4 mg Pantoprazole Sodium (Protonix Inj) 40 mg IVP DAILY [facility] Last Admin: 09/16/17 09:14 Dose: 40 mg Rosuvastatin Calcium (Crestor) 2.5 mg PO HS [facility] Last Admin: 09/15/17 21:53 Dose: 2.5 mg - Labs Labs: 09/16/17 06:18 09/16/17 06:18 PT 10.3 SECONDS (9.7-12.2) 09/10/17 13:52 INR 0.9 09/10/17 13:52 APTT 34 SECONDS (21-34) 09/10/17 13:52 - Constitutional Appears: Cachectic, Chronically Ill - Head Exam Head Exam: NORMOCEPHALIC - Eye Exam Eye Exam: PERRL - ENT Exam ENT Exam: Mucous Membranes Dry - Neck Exam Neck Exam: absent: Lymphadenopathy - Respiratory Exam Respiratory Exam: Decreased Breath Sounds - Cardiovascular Exam Cardiovascular Exam: REGULAR RHYTHM - GI/Abdominal Exam GI & Abdominal Exam: Distended, Soft - Rectal Exam Rectal Exam: Deferred - Exam Exam: NORMAL INSPECTION - Extremities Exam Extremities Exam: absent: Pedal Edema - Back Exam Back Exam: absent: CVA tenderness (L), CVA tenderness (R) - Neurological Exam Neurological Exam: Alert, Awake Assessment and Plan (1) BERYL (acute kidney injury) Status: Acute (2) Acute renal failure Status: Acute (3) CHF (congestive heart failure) Status: Acute (4) CKD (chronic kidney disease) stage 4, GFR 15-29 ml/min Status: Acute (5) Elevated brain natriuretic peptide (BNP) level Status: Acute (6) Hypotension Status: Acute (7) Non-STEMI (non-ST elevated myocardial infarction) Status: Acute
[2017-09-16] MEDS ORDERED: Acetaminophen 650mg/20.3ml solution UD PO PRN (21:00)
[2017-09-16] MEDS: Rosuvastatin Calcium 2.5 mg Tab PO SCH (21:18)
--- NOTE | 2017-09-16 22:39 | CP.PCM.PN ---
Subjective - Date & Time of Evaluation Date of Evaluation: 09/16/17 Time of Evaluation: 19:00 - Subjective Subjective: Vented Objective - Vital Signs/Intake and Output Vital Signs (last 24 hours): Temp Pulse Resp BP Pulse Ox 100.4 F H 99 H 25 H 142/61 99 09/16/17 20:52 09/16/17 22:00 09/16/17 22:00 09/16/17 21:51 09/16/17 22:00 Intake and Output: 09/16/17 09/17/17 18:59 06:59 Intake Total 1295 445 Output Total 1535 325 Balance -240 120 - Medications Medications: Current Medications Acetaminophen (Tylenol 650mg/20.3ml Solution Ud) 650 mg PO Q6 PRN PRN Reason: Fever >100.4 F Acetazolamide (Diamox 500 Mg Inj) 500 mg IV Q12H [facility] Last Admin: 09/16/17 12:04 Dose: 500 mg Aspirin (Ecotrin) 81 mg PO DAILY [facility] Last Admin: 09/16/17 09:14 Dose: 81 mg Dextrose (Dextrose 50% Inj) 0 ml IV STAT PRN; Protocol PRN Reason: Hypoglycemia Protocol Dextrose (Glutose 15) 0 gm PO ONCE PRN; Protocol PRN Reason: Hypoglycemia Protocol Epoetin Sarath (Procrit) 10,000 unit SC TTS [facility] Last Admin: 09/15/17 10:30 Dose: 10,000 unit Ferric Sodium Gluconate Complex (Ferrlecit) 125 mg IVPB DAILY [facility] Stop: 09/22/17 11:31 Last Admin: 09/16/17 10:13 Dose: 125 mg Furosemide (Lasix) 40 mg IVP Q12 [facility] Last Admin: 09/16/17 21:07 Dose: 40 mg Glucagon (Glucagen Diagnostic Kit) 0 mg IM STAT PRN; Protocol PRN Reason: Hypoglycemia Protocol Heparin Sodium (Porcine) (Heparin) 5,000 units SC Q8 [facility] Last Admin: 09/16/17 21:07 Dose: 5,000 units Dextrose (Dextrose 5% In Water 1000 Ml) 1,000 mls @ 0 mls/hr IV .Q0M PRN; Protocol; Per Protocol PRN Reason: Hypoglycemia Protocol Propofol (Diprivan) 1,000 mg in 100 mls @ 1.429 mls/hr IV .Q24H PRN; Protocol; 5 MCG/KG/MIN PRN Reason: TITRATE PER MD ORDER Last Titration: 09/15/17 10:00 Dose: 0 mcg/kg/min, 0 mls/hr Insulin Aspart (Novolog) 0 unit SC Q6 [facility] PRN Reason: Protocol Last Admin: 09/16/17 17:32 Dose: Not Given Insulin Detemir (Levemir) 6 unit SC QAM [facility] Last Admin: 09/16/17 09:14 Dose: 6 unit Insulin Detemir (Levemir) 6 unit SC HS [facility] Last Admin: 09/16/17 21:08 Dose: 6 unit Ondansetron HCl (Zofran Inj) 4 mg IVP Q6 PRN PRN Reason: Nausea/Vomiting Last Admin: 09/13/17 11:01 Dose: 4 mg Pantoprazole Sodium (Protonix Inj) 40 mg IVP DAILY [facility] Last Admin: 09/16/17 09:14 Dose: 40 mg Rosuvastatin Calcium (Crestor) 2.5 mg PO HS [facility] Last Admin: 09/16/17 21:18 Dose: 2.5 mg - Labs Labs: 09/16/17 06:18 09/16/17 06:18 PT 10.3 SECONDS (9.7-12.2) 09/10/17 13:52 INR 0.9 09/10/17 13:52 APTT 34 SECONDS (21-34) 09/10/17 13:52 - Head Exam Head Exam: ATRAUMATIC - Eye Exam Eye Exam: Normal appearance - ENT Exam ENT Exam: Mucous Membranes Dry - Respiratory Exam Respiratory Exam: NORMAL BREATHING PATTERN - Cardiovascular Exam Cardiovascular Exam: +S1, +S2 - GI/Abdominal Exam GI & Abdominal Exam: Normal Bowel Sounds Assessment and Plan (1) Anemia Assessment & Plan: iron deficiency, renal disease on IV iron Status: Chronic
[2017-09-17] MEDS: (Novolog) Insulin Aspart, Recombinant 100 u/ml 10 ml vial SC SCH ×4 (00:05→17:45)
[2017-09-17 06:45] LABS: BASO # 0.1 K/uL (0.0-0.2); BASO % 0.5 % (0.0-2.0); EOS # 0.3 K/uL (0.0-0.7); EOS % 2.5 % (0.0-4.0); HEMATOCRIT 33.8 % (34.0-47.0); LYMPH # 1.4 K/uL (1.0-4.3); LYMPH % 12.7 % (20.0-40.0); MEAN CELL VOLUME 77.7 fL (81.0-99.0); MEAN CORPUSCULAR HEMOGLOBIN 24.2 pg (27.0-31.0); MEAN CORPUSCULAR HGB CONC 31.2 g/dL (33.0-37.0); MEAN PLATELET VOLUME 9.7 fL (7.2-11.7); MONO # 1.1 K/uL (0.0-0.8); MONO % 10.1 % (0.0-10.0); NRBC % 0.2 % (0.0-2.0); RED CELL DISTRIBUTION WIDTH 19.9 % (11.5-14.5); WHITE BLOOD COUNT 10.9 K/uL (4.8-10.8)
[2017-09-17 07:08] LABS: PHOSPHOROUS 3.2 mg/dL (2.5-4.5)
[2017-09-17 07:13] LABS: ALB/GLOB RATIO 0.8 (1.0-2.1); BILIRUBIN,TOTAL 0.4 mg/dL (0.2-1.3); CALCIUM 7.8 mg/dl (8.6-10.4); POTASSIUM 2.9 mmol/L (3.6-5.2); TOTAL PROTEIN 6.9 g/dL (6.3-8.3)
--- NOTE | 2017-09-17 09:39 | CP.PCM.PN ---
Subjective - Date & Time of Evaluation Date of Evaluation: 09/17/17 Time of Evaluation: 09:36 - Subjective Subjective: Extubated; excellent UO with diuretics creat decreased to 1.9- BERYL much improved K low - exacerbated by diamox more alert not verbalizing much Objective - Vital Signs/Intake and Output Vital Signs (last 24 hours): Temp Pulse Resp BP Pulse Ox 98 F 96 H 16 136/51 L 98 09/17/17 08:00 09/17/17 08:00 09/17/17 08:00 09/17/17 05:51 09/17/17 07:00 Intake and Output: 09/17/17 09/17/17 06:59 18:59 Intake Total 1205 90 Output Total 1155 225 Balance 50 -135 - Medications Medications: Current Medications Acetaminophen (Tylenol 650mg/20.3ml Solution Ud) 650 mg PO Q6 PRN PRN Reason: Fever >100.4 F Acetazolamide (Diamox 500 Mg Inj) 500 mg IV Q12H [facility] Last Admin: 09/16/17 22:48 Dose: 500 mg Aspirin (Ecotrin) 81 mg PO DAILY [facility] Last Admin: 09/16/17 09:14 Dose: 81 mg Dextrose (Dextrose 50% Inj) 0 ml IV STAT PRN; Protocol PRN Reason: Hypoglycemia Protocol Dextrose (Glutose 15) 0 gm PO ONCE PRN; Protocol PRN Reason: Hypoglycemia Protocol Epoetin Sarath (Procrit) 10,000 unit SC TTS [facility] Last Admin: 09/15/17 10:30 Dose: 10,000 unit Ferric Sodium Gluconate Complex (Ferrlecit) 125 mg IVPB DAILY [facility] Stop: 09/22/17 11:31 Last Admin: 09/16/17 10:13 Dose: 125 mg Furosemide (Lasix) 40 mg IVP Q12 [facility] Last Admin: 09/16/17 21:07 Dose: 40 mg Glucagon (Glucagen Diagnostic Kit) 0 mg IM STAT PRN; Protocol PRN Reason: Hypoglycemia Protocol Heparin Sodium (Porcine) (Heparin) 5,000 units SC Q8 [facility] Last Admin: 09/17/17 05:58 Dose: 5,000 units Dextrose (Dextrose 5% In Water 1000 Ml) 1,000 mls @ 0 mls/hr IV .Q0M PRN; Protocol; Per Protocol PRN Reason: Hypoglycemia Protocol Propofol (Diprivan) 1,000 mg in 100 mls @ 1.429 mls/hr IV .Q24H PRN; Protocol; 5 MCG/KG/MIN PRN Reason: TITRATE PER MD ORDER Last Titration: 09/15/17 10:00 Dose: 0 mcg/kg/min, 0 mls/hr Insulin Aspart (Novolog) 0 unit SC Q6 [facility] PRN Reason: Protocol Last Admin: 09/17/17 05:55 Dose: Not Given Insulin Detemir (Levemir) 6 unit SC QAM [facility] Last Admin: 09/16/17 09:14 Dose: 6 unit Insulin Detemir (Levemir) 6 unit SC HS [facility] Last Admin: 09/16/17 21:08 Dose: 6 unit Ondansetron HCl (Zofran Inj) 4 mg IVP Q6 PRN PRN Reason: Nausea/Vomiting Last Admin: 09/13/17 11:01 Dose: 4 mg Pantoprazole Sodium (Protonix Inj) 40 mg IVP DAILY [facility] Last Admin: 09/16/17 09:14 Dose: 40 mg Rosuvastatin Calcium (Crestor) 2.5 mg PO HS [facility] Last Admin: 09/16/17 21:18 Dose: 2.5 mg - Labs Labs: 09/17/17 06:30 09/17/17 06:32 PT 10.3 SECONDS (9.7-12.2) 09/10/17 13:52 INR 0.9 09/10/17 13:52 APTT 34 SECONDS (21-34) 09/10/17 13:52 - Constitutional Appears: No Acute Distress, Chronically Ill - Head Exam Head Exam: ATRAUMATIC, NORMAL INSPECTION - Eye Exam Eye Exam: EOMI, Normal appearance - Neck Exam Neck Exam: Normal Inspection. absent: Tenderness - Respiratory Exam Respiratory Exam: Clear to Ausculation Bilateral, NORMAL BREATHING PATTERN - Cardiovascular Exam Cardiovascular Exam: REGULAR RHYTHM, +S1 - GI/Abdominal Exam GI & Abdominal Exam: Soft. absent: Tenderness - Extremities Exam Extremities Exam: Normal Inspection. absent: Tenderness - Neurological Exam Neurological Exam: Awake, CN II-XII Intact - Skin Skin Exam: Dry, Warm Assessment and Plan (1) BERYL (acute kidney injury) Status: Acute (2) CHF (congestive heart failure) Status: Acute (3) Chronic hemorrhagic anemia Status: Acute (4) Elevated brain natriuretic peptide (BNP) level Status: Acute (5) Elevated troponin I level Status: Acute (6) Non-STEMI (non-ST elevated myocardial infarction) Status: Acute (7) Transient hypotension Status: Acute (8) CKD (chronic kidney disease) stage 4, GFR 15-29 ml/min Status: Acute - Assessment and Plan (Free Text) Plan: stop IV lasix change to po lasix, aldactone replete K f/u lytes
[2017-09-17] MEDS ORDERED: Potassium Chloride 20 mEq/15 ml LIQ UD PO ONE ×2 (09:45→12:54)
[2017-09-17] MEDS: Ferric Sodium Gluconat Complex 62.5 mg/5 ml Vial IVPB SCH (09:54)
[2017-09-17] MEDS: Insulin Detemir 100 units/ml Vial (Levemir) SC SCH ×2 (09:58→21:16)
--- NOTE | 2017-09-17 10:32 | CARD ---
APPROVED REPORT EKG Measurement Heart [id number] <Conclusion> Sinus tachycardia with 1st degree AV block ST & T wave abnormality, consider anterolateral ischemia Abnormal ECG
[2017-09-17] MEDS ORDERED: Potassium Chloride 20 mEq ER Tab PO ONE (11:16)
--- NOTE | 2017-09-17 12:21 | CP.PCM.PN ---
Subjective - Date & Time of Evaluation Date of Evaluation: 09/17/17 Time of Evaluation: 12:15 - Subjective Subjective: Hospitalist Progress Note Patient was seen and examined at 12:15 PM 09/17/17 ICU Bed 6 - Head Exam Head Exam: NORMAL INSPECTION - Eye Exam Eye Exam: Pupils are round and reactive to light. absent: Nystagmus, Scleral icterus - ENT Exam ENT Exam: Mucous Membranes Moist - Respiratory Exam Respiratory Exam: Bilateral Mid to Lower Lung Field Inspiratory Crackles. absent: Wheezes, Stridor - Cardiovascular Exam Cardiovascular Exam: REGULAR RHYTHM, +S1, +S2 - GI/Abdominal Exam GI & Abdominal Exam: Soft, Normal Bowel Sounds. absent: Distended, Firm, Guarding, Rigid, Tenderness, Rebound - Extremities Exam Extremities Exam: Normal Capillary Refill. absent: Pedal Edema, Tenderness - Back Exam Back Exam: absent: CVA tenderness (L), CVA tenderness (R) - Neurological Exam Neurological Exam: Alert, Awake, Oriented x3 - Skin Skin Exam: Dry, Intact, Normal Color, Warm Additional comments: Assessment and Plan (1) Acute Renal Failure and Electrolyte Imbalance Assessment & Plan: * Nephrology Dr. Chowdhury/Landry is following * BUN/Cr worsened and patient and patient was trial of IV Lasix since 09/12/17. Cr is slowing improving and holding off on HD for now. IV Lasix changed to PO now at 40 mg 1x/day * Potassium Low at 2.9 likely secondary to Diamox which has been discontinued . Patient given total of 60 mEQ of KCl 09/17/17 Status: Acute (2) Grade I Diastolic Heart Failure Echocardiogram 09/10/17 showed EF of 58% with hypokinetic anterior and apical septum and Grade I Abnormal Relaxation Patter. Moderate Tricuspid regurgitation and moderate to severe pulmonary HTN Elevated ProBNP upon admission Chest X Ray 09/13/17 showed increased pulmonary vascular congestion Chest X Ray 09/14/17 showed decreased right side infiltrate and limited left perihilar infiltrate remaining Chest X Ray 09/16/17 showed resolution of right upper lobe opacity, and there is questionable opacity medial right lung base Status: Acute (3) Acute Respiratory Failure Likely secondary to the increased pulmonary vascular congestion from the blood transfusions on 09/12/17, Acute Renal Failure, and Diastolic Heart Failure Patient intubated and placed on vent by ICU team 09/13/17 and was extubated 09/16 Status: Acute (4) Leukocytosis Slightly elevated at 10.9 09/17/17 Fever of 100.7 on 09/15/17 and patient was started on Vancomycin secondary to Sputum Culture 09/13/17 shows preliminary Staph aureus. However, Chest X Ray 09/16/17 did not show any infiltrates and as the leukocytosis has resolved, ICU Team discontinued the Vancomycin 09/16/17. Blood Culture 09/10/17 is Negative To Date Urine Culture 09/10/17 showed multiple species therefore another Urine Culture ordered 09/13/[address] mSith Consider CT Chest if this worsens Status: Acute (5) Elevated Troponin Assessment & Plan: * Cardiology Dr. Dunbar on board-->help appreciated * Elevated Troponin: 0.6460-->0.4850-->0.5510 * On Aspirin 81mg PO daily Status: Acute (6) Diabetes 2 Assessment & Plan: HgBa1c: 7.8 Hypoglycemia protocol Crestor 2.5mg PO qHS Off metformin, glipizide on admission given acute renal failure Started on Levemir 6 units QAM and HS 09/14/17 based upon 24 hours ISS requirement Aspart sliding scale Status: Chronic (7) Hypertension Assessment & Plan: Off anti-hypertensives (Hydralazine, Metoprolol XL, Amlodipine, Losartan/HCTZ, Lasix, Imdur) because of hypotension upon admission Currently stable Status: Chronic (8) Anemia Assessment & Plan: retic count: 2.2 Iron: 44 TIBC: 220 iron saturation: 20 Ferritin: 31 Ferrlicit 125 mg IV 1x/day through 09/22/17 HgB dropped to 7.0 and 2 units PRBC transfused 09/12/17. HgB/Hct is currently stable. Serum Immunofixation with faint band in IgG and Lambda likely reactive. Repeat Serum Immunofixation in 3 to 6 months as outpatient. Heme/Onc Dr. Toña Lentz Stool Occult Blood 09/10/17 and 09/13/17 are negative Status: Chronic (9). Elevated LFTs AST and ALT are declining (10) Polypharmacy Assessment & Plan: Held home medications on admission including PO diabetic and diuretic medications given acute renal failure Status: Acute (11) Vertigo Assessment & Plan: CT Head: negative on admission Patient has seen previously Dr. 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 Kareem Wiggins D.O. Objective - Vital Signs/Intake and Output Vital Signs (last 24 hours): Temp Pulse Resp BP Pulse Ox 98 F 97 H 23 144/51 L 100 09/17/17 08:00 09/17/17 09:00 09/17/17 09:00 09/17/17 09:00 09/17/17 09:00 Intake and Output: 09/17/17 09/17/17 06:59 18:59 Intake Total 1205 90 Output Total 1155 225 Balance 50 -135 - Medications Medications: Current Medications Acetaminophen (Tylenol 650mg/20.3ml Solution Ud) 650 mg PO Q6 PRN PRN Reason: Fever >100.4 F Aspirin (Ecotrin) 81 mg PO DAILY [facility] Last Admin: 09/17/17 11:20 Dose: 81 mg Dextrose (Dextrose 50% Inj) 0 ml IV STAT PRN; Protocol PRN Reason: Hypoglycemia Protocol Dextrose (Glutose 15) 0 gm PO ONCE PRN; Protocol PRN Reason: Hypoglycemia Protocol Epoetin Sarath (Procrit) 10,000 unit SC TTS [facility] Last Admin: 09/15/17 10:30 Dose: 10,000 unit Ferric Sodium Gluconate Complex (Ferrlecit) 125 mg IVPB DAILY [facility] Stop: 09/22/17 11:31 Last Admin: 09/17/17 09:54 Dose: 125 mg Furosemide (Lasix) 40 mg PO DAILY [facility] Glucagon (Glucagen Diagnostic Kit) 0 mg IM STAT PRN; Protocol PRN Reason: Hypoglycemia Protocol Heparin Sodium (Porcine) (Heparin) 5,000 units SC Q12 [facility] Dextrose (Dextrose 5% In Water 1000 Ml) 1,000 mls @ 0 mls/hr IV .Q0M PRN; Protocol; Per Protocol PRN Reason: Hypoglycemia Protocol Propofol (Diprivan) 1,000 mg in 100 mls @ 1.429 mls/hr IV .Q24H PRN; Protocol; 5 MCG/KG/MIN PRN Reason: TITRATE PER MD ORDER Last Titration: 09/15/17 10:00 Dose: 0 mcg/kg/min, 0 mls/hr Dextrose (Dextrose 5% In Water) 250 mls @ 75 mls/hr IV .Q3H20M [facility] Stop: 09/17/17 23:19 Insulin Aspart (Novolog) 0 unit SC Q6 [facility] PRN Reason: Protocol Last Admin: 09/17/17 05:55 Dose: Not Given Insulin Detemir (Levemir) 6 unit SC QAM [facility] Last Admin: 09/17/17 09:58 Dose: 6 unit Insulin Detemir (Levemir) 6 unit SC HS [facility] Last Admin: 09/16/17 21:08 Dose: 6 unit Ondansetron HCl (Zofran Inj) 4 mg IVP Q6 PRN PRN Reason: Nausea/Vomiting Last Admin: 09/13/17 11:01 Dose: 4 mg Pantoprazole Sodium (Protonix Inj) 40 mg IVP DAILY [facility] Last Admin: 09/17/17 09:54 Dose: 40 mg Rosuvastatin Calcium (Crestor) 2.5 mg PO HS [facility] Last Admin: 09/16/17 21:18 Dose: 2.5 mg Spironolactone (Aldactone) 50 mg PO DAILY [facility] Last Admin: 09/17/17 11:19 Dose: 50 mg - Labs Labs: 09/17/17 06:30 09/17/17 06:32 PT 10.3 SECONDS (9.7-12.2) 09/10/17 13:52 INR 0.9 09/10/17 13:52 APTT 34 SECONDS (21-34) 09/10/17 13:52
[2017-09-17] MEDS: EPOETIN ALFA 10,000 UNIT/ML ML SC SCH (17:28)
--- NOTE | 2017-09-17 18:12 | CP.PCM.PN ---
Subjective - Date & Time of Evaluation Date of Evaluation: 09/17/17 Time of Evaluation: 17:55 - Subjective Subjective: Awake, family at bedside Objective - Vital Signs/Intake and Output Vital Signs (last 24 hours): Temp Pulse Resp BP Pulse Ox 97.2 F L 97 H 22 132/46 L 100 09/17/17 16:00 09/17/17 16:00 09/17/17 16:00 09/17/17 15:52 09/17/17 16:00 Intake and Output: 09/17/17 09/17/17 06:59 18:59 Intake Total 1205 1020 Output Total 1155 601 Balance 50 419 - Medications Medications: Current Medications Acetaminophen (Tylenol 650mg/20.3ml Solution Ud) 650 mg PO Q6 PRN PRN Reason: Fever >100.4 F Aspirin (Ecotrin) 81 mg PO DAILY [facility] Last Admin: 09/17/17 11:20 Dose: 81 mg Dextrose (Dextrose 50% Inj) 0 ml IV STAT PRN; Protocol PRN Reason: Hypoglycemia Protocol Dextrose (Glutose 15) 0 gm PO ONCE PRN; Protocol PRN Reason: Hypoglycemia Protocol Epoetin Sarath (Procrit) 10,000 unit SC TTS [facility] Last Admin: 09/17/17 17:28 Dose: 10,000 unit Ferric Sodium Gluconate Complex (Ferrlecit) 125 mg IVPB DAILY [facility] Stop: 09/22/17 11:31 Last Admin: 09/17/17 09:54 Dose: 125 mg Furosemide (Lasix) 40 mg PO DAILY [facility] Glucagon (Glucagen Diagnostic Kit) 0 mg IM STAT PRN; Protocol PRN Reason: Hypoglycemia Protocol Heparin Sodium (Porcine) (Heparin) 5,000 units SC Q12 [facility] Dextrose (Dextrose 5% In Water 1000 Ml) 1,000 mls @ 0 mls/hr IV .Q0M PRN; Protocol; Per Protocol PRN Reason: Hypoglycemia Protocol Propofol (Diprivan) 1,000 mg in 100 mls @ 1.429 mls/hr IV .Q24H PRN; Protocol; 5 MCG/KG/MIN PRN Reason: TITRATE PER MD ORDER Last Titration: 09/15/17 10:00 Dose: 0 mcg/kg/min, 0 mls/hr Dextrose (Dextrose 5% In Water) 250 mls @ 75 mls/hr IV .Q3H20M [facility] Stop: 09/17/17 23:19 Last Admin: 09/17/17 12:44 Dose: Not Given Insulin Aspart (Novolog) 0 unit SC Q6 [facility] PRN Reason: Protocol Last Admin: 09/17/17 17:45 Dose: 4 unit Insulin Detemir (Levemir) 6 unit SC QAM [facility] Last Admin: 09/17/17 09:58 Dose: 6 unit Insulin Detemir (Levemir) 6 unit SC HS [facility] Last Admin: 09/16/17 21:08 Dose: 6 unit Ondansetron HCl (Zofran Inj) 4 mg IVP Q6 PRN PRN Reason: Nausea/Vomiting Last Admin: 09/13/17 11:01 Dose: 4 mg Pantoprazole Sodium (Protonix Inj) 40 mg IVP DAILY [facility] Last Admin: 09/17/17 09:54 Dose: 40 mg Rosuvastatin Calcium (Crestor) 2.5 mg PO HS [facility] Last Admin: 09/16/17 21:18 Dose: 2.5 mg Spironolactone (Aldactone) 50 mg PO DAILY [facility] Last Admin: 09/17/17 11:19 Dose: 50 mg - Labs Labs: 09/17/17 06:30 09/17/17 06:32 PT 10.3 SECONDS (9.7-12.2) 09/10/17 13:52 INR 0.9 09/10/17 13:52 APTT 34 SECONDS (21-34) 09/10/17 13:52 - Head Exam Head Exam: ATRAUMATIC - Eye Exam Eye Exam: Normal appearance - ENT Exam ENT Exam: Mucous Membranes Dry - Respiratory Exam Respiratory Exam: NORMAL BREATHING PATTERN - Cardiovascular Exam Cardiovascular Exam: +S1, +S2 - GI/Abdominal Exam GI & Abdominal Exam: Normal Bowel Sounds Assessment and Plan (1) Anemia Assessment & Plan: iron deficiency on IV iron with improved H/H anemia of renal disease Status: Chronic
--- NOTE | 2017-09-17 20:15 | PN ---
SUBJECTIVE: The patient was extubated yesterday. No reported ventricular arrhythmia or hypotension. PHYSICAL EXAMINATION: VITAL SIGNS: Blood pressure 144/51, heart rate 97, temperature 98, respirations 16. HEENT: Pale conjunctivae. CHEST: Minimal rhonchi. HEART: S1 and S2 regular. EXTREMITIES: No edema. LABORATORY DATA: SMA-7; sodium 152, potassium 2.9, chloride 103, CO2 of 41, glucose 161, BUN 81, creatinine 1.9. Hemoglobin and hematocrit 10.5 and 33.8, white count 10.9, platelet count 279,000. ASSESSMENT: 1. Status post respiratory failure. 2. Possible Staphylococcus aureus pneumonia. 3. Status post non-ST elevation mycoardial infarction. 4. Hypernatremia and hypokalemia. 5. Acute renal insufficiency. RECOMMENDATIONS: Continue current Aldactone 50 mg once a day, aspirin 81 mg once a day, subcutaneous heparin 5000 units q.12 hours. Discontinue Lasix. Cardiac catheterization was discussed with the patient's daughter at the bedside. The procedure and its risks were fully explained, awaiting medical clearance including respiratory and nephrology stabilization and clearance. Elvis Dunbar MD
[2017-09-17] MEDS: Rosuvastatin Calcium 2.5 mg Tab PO SCH (21:16)
[2017-09-18] MEDS: (Novolog) Insulin Aspart, Recombinant 100 u/ml 10 ml vial SC SCH ×4 (00:55→17:27)
[2017-09-18 06:25] LABS: BASO % 0.2 % (0.0-2.0); EOS # 0.4 K/uL (0.0-0.7); EOS % 3.1 % (0.0-4.0); HEMATOCRIT 36.2 % (34.0-47.0); LYMPH # 1.3 K/uL (1.0-4.3); LYMPH % 10.7 % (20.0-40.0); MEAN CELL VOLUME 76.9 fL (81.0-99.0); MEAN CORPUSCULAR HEMOGLOBIN 23.8 pg (27.0-31.0); MEAN CORPUSCULAR HGB CONC 30.9 g/dL (33.0-37.0); MEAN PLATELET VOLUME 9.4 fL (7.2-11.7); MONO # 1.1 K/uL (0.0-0.8); MONO % 8.9 % (0.0-10.0); NRBC % 0.9 % (0.0-2.0); RED CELL DISTRIBUTION WIDTH 19.3 % (11.5-14.5); WHITE BLOOD COUNT 11.9 K/uL (4.8-10.8)
[2017-09-18 06:46] LABS: ALB/GLOB RATIO 0.8 (1.0-2.1); BILIRUBIN,TOTAL 0.6 mg/dL (0.2-1.3); CALCIUM 7.7 mg/dl (8.6-10.4); POTASSIUM 3.2 mmol/L (3.6-5.2); TOTAL PROTEIN 7.6 g/dL (6.3-8.3)
[2017-09-18] MEDS: Ferric Sodium Gluconat Complex 62.5 mg/5 ml Vial IVPB SCH (09:31)
[2017-09-18] MEDS: Insulin Detemir 100 units/ml Vial (Levemir) SC SCH ×2 (09:40→22:00)
--- NOTE | 2017-09-18 10:10 | CP.PCM.PN ---
Subjective - Date & Time of Evaluation Date of Evaluation: 09/18/17 Time of Evaluation: 10:00 - Subjective Subjective: Hospitalist Progress Note Patient was seen and examined at 10:00 AM 09/18/17 ICU Bed 6 NGT was removed and she is able to nod her head "Yes" and "NO" to ROS questions Currently upon ROS: NO Chest Pain NO SOB/Dyspnea NO abdominal pain She had small bowel movement this morning NO LU NO eye pain/vision change NO ear pain/hearing change NO other complaints upon FULL ROS - Head Exam Head Exam: NORMAL INSPECTION - Eye Exam Eye Exam: Pupils are round and reactive to light. absent: Nystagmus, Scleral icterus - ENT Exam ENT Exam: Mucous Membranes Moist - Respiratory Exam Respiratory Exam: Bilateral Mid to Lower Lung Field Inspiratory Crackles. absent: Wheezes, Stridor - Cardiovascular Exam Cardiovascular Exam: REGULAR RHYTHM, +S1, +S2 - GI/Abdominal Exam GI & Abdominal Exam: Soft, Normal Bowel Sounds. absent: Distended, Firm, Guarding, Rigid, Tenderness, Rebound - Extremities Exam Extremities Exam: Normal Capillary Refill. absent: Pedal Edema, Tenderness - Back Exam Back Exam: absent: CVA tenderness (L), CVA tenderness (R) - Neurological Exam Neurological Exam: Alert, Awake, Oriented x3 - Skin Skin Exam: Dry, Intact, Normal Color, Warm Additional comments: Assessment and Plan (1) Acute Renal Failure and Electrolyte Imbalance Assessment & Plan: * Nephrology Dr. Chowdhury/Landry is following * BUN/Cr worsened and patient and patient was trial of IV Lasix since 09/12/17. Cr is slowing improving and holding off on HD for now. IV Lasix changed to PO now at 40 mg 1x/day on 09/17/17 * Potassium Low at 3.2 likely secondary to Diamox (which has been discontinued 09/17/17) and Lasix. Patient is on Aldactone 50 mg PO 1x/day. Patient given total of 60 mEQ of KCl 09/17/17 and 40 mEQ on 09/18/17. Status: Acute (2) Grade I Diastolic Heart Failure Echocardiogram 09/10/17 showed EF of 58% with hypokinetic anterior and apical septum and Grade I Abnormal Relaxation Patter. Moderate Tricuspid regurgitation and moderate to severe pulmonary HTN Elevated ProBNP upon admission Chest X Ray 09/13/17 showed increased pulmonary vascular congestion Chest X Ray 09/14/17 showed decreased right side infiltrate and limited left perihilar infiltrate remaining Chest X Ray 09/16/17 showed resolution of right upper lobe opacity, and there is questionable opacity medial right lung base Status: Acute (3) Acute Respiratory Failure Likely secondary to the increased pulmonary vascular congestion from the blood transfusions on 09/12/17, Acute Renal Failure, and Diastolic Heart Failure Patient intubated and placed on vent by ICU team 09/13/17 and was successfully extubated 09/16/17 Status: Acute (4) Leukocytosis Elevated at 11.9 09/18/17 Fever of 100.7 on 09/15/17 and patient was started on Vancomycin secondary to Sputum Culture 09/13/17 shows preliminary Staph aureus. However, Chest X Ray 09/16/17 did not show any infiltrates and as the leukocytosis has resolved, ICU Team discontinued the Vancomycin 09/16/17. Blood Culture 09/10/17 is Negative To Date Urine Culture 09/10/17 showed multiple species therefore another Urine Culture ordered 09/13/[address] Smith Consider CT Chest if this worsens Status: Acute (5) Elevated Troponin Assessment & Plan: * Cardiology Dr. Dunbar on board-->help appreciated * Elevated Troponin: 0.6460-->0.4850-->0.5510 * On Aspirin 81mg PO daily Status: Acute (6) Diabetes 2 Assessment & Plan: HgBa1c: 7.8 Hypoglycemia protocol Crestor 2.5mg PO qHS Off metformin, glipizide on admission given acute renal failure Levemir was adjusted: Levemir 12 units QAM and 12 units HS on 09/18/17 based upon 24 hours ISS requirement Aspart sliding scale Status: Chronic (7) Hypertension Assessment & Plan: Off anti-hypertensives (Hydralazine, Metoprolol XL, Amlodipine, Losartan/HCTZ, Lasix, Imdur) because of hypotension upon admission She is on Lasix and Aldactone as mentioned in Assessment and Plan #1 Currently stable Status: Chronic (8) Anemia Assessment & Plan: retic count: 2.2 Iron: 44 TIBC: 220 iron saturation: 20 Ferritin: 31 Ferrlicit 125 mg IV 1x/day through 09/22/17 ProCrit 10,000 Units SC T-T-S HgB dropped to 7.0 and 2 units PRBC transfused 09/12/17. HgB/Hct is currently stable. Serum Immunofixation with faint band in IgG and Lambda likely reactive. Repeat Serum Immunofixation in 3 to 6 months as outpatient. Heme/Onc Dr. Tñoa Lentz Stool Occult Blood 09/10/17 and 09/13/17 are negative Status: Chronic (9). Elevated LFTs AST and ALT are declining (10) Polypharmacy Assessment & Plan: Held home medications on admission including PO diabetic medications. Status: Acute (11) Vertigo Assessment & Plan: CT Head: negative on admission Patient has seen previously Dr. 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 Objective - Vital Signs/Intake and Output Vital Signs (last 24 hours): Temp Pulse Resp BP Pulse Ox 97.8 F 91 H 27 H 147/60 96 09/18/17 03:58 09/18/17 06:10 09/18/17 06:10 09/18/17 09:30 09/18/17 06:10 Intake and Output: 09/18/17 09/18/17 06:59 18:59 Intake Total 920 Balance 920 - Medications Medications: Current Medications Acetaminophen (Tylenol 650mg/20.3ml Solution Ud) 650 mg PO Q6 PRN PRN Reason: Fever >100.4 F Aspirin (Ecotrin) 81 mg PO DAILY [facility] Last Admin: 09/18/17 09:30 Dose: 81 mg Dextrose (Dextrose 50% Inj) 0 ml IV STAT PRN; Protocol PRN Reason: Hypoglycemia Protocol Dextrose (Glutose 15) 0 gm PO ONCE PRN; Protocol PRN Reason: Hypoglycemia Protocol Epoetin Sarath (Procrit) 10,000 unit SC TTS [facility] Last Admin: 09/17/17 17:28 Dose: 10,000 unit Ferric Sodium Gluconate Complex (Ferrlecit) 125 mg IVPB DAILY [facility] Stop: 09/22/17 11:31 Last Admin: 09/18/17 09:31 Dose: 125 mg Furosemide (Lasix) 40 mg PO DAILY [facility] Last Admin: 09/18/17 09:30 Dose: 40 mg Glucagon (Glucagen Diagnostic Kit) 0 mg IM STAT PRN; Protocol PRN Reason: Hypoglycemia Protocol Heparin Sodium (Porcine) (Heparin) 5,000 units SC Q12 [facility] Last Admin: 09/18/17 09:34 Dose: 5,000 units Dextrose (Dextrose 5% In Water 1000 Ml) 1,000 mls @ 0 mls/hr IV .Q0M PRN; Protocol; Per Protocol PRN Reason: Hypoglycemia Protocol Propofol (Diprivan) 1,000 mg in 100 mls @ 1.429 mls/hr IV .Q24H PRN; Protocol; 5 MCG/KG/MIN PRN Reason: TITRATE PER MD ORDER Last Titration: 09/15/17 10:00 Dose: 0 mcg/kg/min, 0 mls/hr Insulin Aspart (Novolog) 0 unit SC Q6 [facility] PRN Reason: Protocol Last Admin: 09/18/17 06:34 Dose: 2 unit Insulin Detemir (Levemir) 6 unit SC QAM [facility] Last Admin: 09/18/17 09:40 Dose: 6 unit Insulin Detemir (Levemir) 6 unit SC HS [facility] Last Admin: 09/17/17 21:16 Dose: 6 unit Ondansetron HCl (Zofran Inj) 4 mg IVP Q6 PRN PRN Reason: Nausea/Vomiting Last Admin: 09/13/17 11:01 Dose: 4 mg Pantoprazole Sodium (Protonix Inj) 40 mg IVP DAILY [facility] Last Admin: 09/18/17 09:30 Dose: 40 mg Rosuvastatin Calcium (Crestor) 2.5 mg PO HS [facility] Last Admin: 09/17/17 21:16 Dose: 2.5 mg Spironolactone (Aldactone) 50 mg PO DAILY [facility] Last Admin: 09/18/17 09:32 Dose: 50 mg - Labs Labs: 09/18/17 06:16 09/18/17 06:17 PT 10.3 SECONDS (9.7-12.2) 09/10/17 13:52 INR 0.9 09/10/17 13:52 APTT 34 SECONDS (21-34) 09/10/17 13:52
[2017-09-18] MEDS ORDERED: Potassium Chloride 20 mEq ER Tab PO ONE (10:30)
--- NOTE | 2017-09-18 13:23 | CP.PCM.PN ---
Subjective - Date & Time of Evaluation Date of Evaluation: 09/18/17 Time of Evaluation: 10:00 - Subjective Subjective: awake alert extubated nad Objective - Vital Signs/Intake and Output Vital Signs (last 24 hours): Temp Pulse Resp BP Pulse Ox 98 F 94 H 20 146/61 98 09/18/17 12:00 09/18/17 12:00 09/18/17 12:00 09/18/17 12:00 09/18/17 12:00 Intake and Output: 09/18/17 09/18/17 06:59 18:59 Intake Total 920 270 Output Total 100 Balance 920 170 - Medications Medications: Current Medications Acetaminophen (Tylenol 650mg/20.3ml Solution Ud) 650 mg PO Q6 PRN PRN Reason: Fever >100.4 F Aspirin (Ecotrin) 81 mg PO DAILY [facility] Last Admin: 09/18/17 09:30 Dose: 81 mg Dextrose (Dextrose 50% Inj) 0 ml IV STAT PRN; Protocol PRN Reason: Hypoglycemia Protocol Dextrose (Glutose 15) 0 gm PO ONCE PRN; Protocol PRN Reason: Hypoglycemia Protocol Epoetin Sarath (Procrit) 10,000 unit SC TTS [facility] Last Admin: 09/17/17 17:28 Dose: 10,000 unit Ferric Sodium Gluconate Complex (Ferrlecit) 125 mg IVPB DAILY [facility] Stop: 09/22/17 11:31 Last Admin: 09/18/17 09:31 Dose: 125 mg Furosemide (Lasix) 40 mg PO DAILY [facility] Last Admin: 09/18/17 09:30 Dose: 40 mg Glucagon (Glucagen Diagnostic Kit) 0 mg IM STAT PRN; Protocol PRN Reason: Hypoglycemia Protocol Heparin Sodium (Porcine) (Heparin) 5,000 units SC Q12 [facility] Last Admin: 09/18/17 09:34 Dose: 5,000 units Dextrose (Dextrose 5% In Water 1000 Ml) 1,000 mls @ 0 mls/hr IV .Q0M PRN; Protocol; Per Protocol PRN Reason: Hypoglycemia Protocol Propofol (Diprivan) 1,000 mg in 100 mls @ 1.429 mls/hr IV .Q24H PRN; Protocol; 5 MCG/KG/MIN PRN Reason: TITRATE PER MD ORDER Last Titration: 09/15/17 10:00 Dose: 0 mcg/kg/min, 0 mls/hr Insulin Aspart (Novolog) 0 unit SC Q6 [facility] PRN Reason: Protocol Last Admin: 09/18/17 06:34 Dose: 2 unit Insulin Detemir (Levemir) 12 unit SC HS [facility] Insulin Detemir (Levemir) 12 unit SC QAM [facility] Ondansetron HCl (Zofran Inj) 4 mg IVP Q6 PRN PRN Reason: Nausea/Vomiting Last Admin: 09/13/17 11:01 Dose: 4 mg Pantoprazole Sodium (Protonix Inj) 40 mg IVP DAILY [facility] Last Admin: 09/18/17 09:30 Dose: 40 mg Rosuvastatin Calcium (Crestor) 2.5 mg PO HS [facility] Last Admin: 09/17/17 21:16 Dose: 2.5 mg Spironolactone (Aldactone) 50 mg PO DAILY [facility] Last Admin: 09/18/17 09:32 Dose: 50 mg - Labs Labs: 09/18/17 06:16 09/18/17 06:17 PT 10.3 SECONDS (9.7-12.2) 09/10/17 13:52 INR 0.9 09/10/17 13:52 APTT 34 SECONDS (21-34) 09/10/17 13:52 - Constitutional Appears: Non-toxic, Cachectic, Chronically Ill - Head Exam Head Exam: NORMOCEPHALIC - Eye Exam Eye Exam: PERRL. absent: Scleral icterus - ENT Exam ENT Exam: Mucous Membranes Dry - Neck Exam Neck Exam: absent: Lymphadenopathy - Respiratory Exam Respiratory Exam: Decreased Breath Sounds, Rhonchi - Cardiovascular Exam Cardiovascular Exam: REGULAR RHYTHM, +S1, +S2 - GI/Abdominal Exam GI & Abdominal Exam: Distended, Soft. absent: Tenderness - Rectal Exam Rectal Exam: Deferred - Exam Exam: NORMAL INSPECTION - Extremities Exam Extremities Exam: absent: Pedal Edema - Back Exam Back Exam: absent: CVA tenderness (L), CVA tenderness (R) - Neurological Exam Neurological Exam: Alert, Awake, Oriented x3 - Psychiatric Exam Psychiatric exam: Depressed - Skin Skin Exam: Dry Assessment and Plan (1) BERYL (acute kidney injury) Status: Acute (2) Acute renal failure Status: Acute (3) CHF (congestive heart failure) Status: Acute (4) CKD (chronic kidney disease) stage 4, GFR 15-29 ml/min Status: Acute (5) Elevated brain natriuretic peptide (BNP) level Status: Acute (6) Hypotension Status: Acute (7) Non-STEMI (non-ST elevated myocardial infarction) Status: Acute
--- NOTE | 2017-09-18 19:50 | PN ---
DATE: SUBJECTIVE: Patient is awake, oriented. She denies any chest pain. No reported ventricular arrhythmia. PHYSICAL EXAMINATION: VITAL SIGNS: Blood pressure 146/61, heart rate 94, temperature 98, respirations 20. HEENT: Normocephalic. CHEST: Bilateral rhonchi. HEART: S1, S2, regular. ABDOMEN: Soft. EXTREMITIES: No edema. LABORATORY DATA: Hemoglobin and hematocrit 11.2 and 36.2, white count 11.9, platelet count 299,000. SMA-7: Sodium 149, potassium 3.2, chloride 103, CO2 of 36, glucose 181, BUN 72, and creatinine 1.5. Microbiology workup revealed negative culture after 5 days. ASSESSMENT: 1. Status post respiratory failure. 2. Staphylococcus aureus pneumonia. 3. Non-ST elevation myocardial infarction. 4. Chronic renal insufficiency. 5. Improved hypernatremia. 6. Hypokalemia. RECOMMENDATIONS: Discontinue Lasix drip. Continue Aldactone, Crestor, and subcutaneous heparin. Cardiac catheterization once patient is cleared from nephrology point of view. Elvis Dunbar MD
[2017-09-18] MEDS: Rosuvastatin Calcium 2.5 mg Tab PO SCH (21:58)
[2017-09-19] MEDS: (Novolog) Insulin Aspart, Recombinant 100 u/ml 10 ml vial SC SCH ×5 (06:05→23:37)
[2017-09-19 06:06] LABS: BASO # 0.1 K/uL (0.0-0.2); BASO % 0.9 % (0.0-2.0); EOS # 0.2 K/uL (0.0-0.7); EOS % 2.5 % (0.0-4.0); HEMATOCRIT 31.2 % (34.0-47.0); LYMPH # 1.1 K/uL (1.0-4.3); LYMPH % 11.4 % (20.0-40.0); MEAN CELL VOLUME 76.7 fL (81.0-99.0); MEAN CORPUSCULAR HEMOGLOBIN 24.1 pg (27.0-31.0); MEAN CORPUSCULAR HGB CONC 31.5 g/dL (33.0-37.0); MEAN PLATELET VOLUME 9.1 fL (7.2-11.7); MONO # 1.3 K/uL (0.0-0.8); MONO % 13.2 % (0.0-10.0); NRBC % 1.4 % (0.0-2.0); RED CELL DISTRIBUTION WIDTH 19.2 % (11.5-14.5); WHITE BLOOD COUNT 9.8 K/uL (4.8-10.8)
[2017-09-19 06:28] LABS: ALB/GLOB RATIO 0.9 (1.0-2.1); BILIRUBIN,TOTAL 0.6 mg/dL (0.2-1.3); CALCIUM 7.9 mg/dl (8.6-10.4); POTASSIUM 3.1 mmol/L (3.6-5.2); TOTAL PROTEIN 6.6 g/dL (6.3-8.3)
[2017-09-19] MEDS: Insulin Detemir 100 units/ml Vial (Levemir) SC SCH ×2 (09:56→21:12)
[2017-09-19] MEDS: Ferric Sodium Gluconat Complex 62.5 mg/5 ml Vial IVPB SCH (09:59)
[2017-09-19] MEDS ORDERED: Potassium Chloride 20 mEq ER Tab PO ONE (10:00)
--- NOTE | 2017-09-19 10:43 | CP.PCM.PN ---
Subjective - Date & Time of Evaluation Date of Evaluation: 09/19/17 Time of Evaluation: 10:41 - Subjective Subjective: extubated' awake UO less now- 400ml / 24 hrs pre-renal azotemia better K just repleted plans for cardiac cath noted- maybe premature as melly lust resolving and pt more oliguric offers no complaints, very sluggish Objective - Vital Signs/Intake and Output Vital Signs (last 24 hours): Temp Pulse Resp BP Pulse Ox 97.5 F L 88 23 152/56 H 99 09/19/17 08:00 09/19/17 08:00 09/19/17 08:00 09/19/17 09:55 09/19/17 08:00 Intake and Output: 09/19/17 09/19/17 06:59 18:59 Intake Total 60 0 Output Total 100 0 Balance -40 0 - Medications Medications: Current Medications Acetaminophen (Tylenol 650mg/20.3ml Solution Ud) 650 mg PO Q6 PRN PRN Reason: Fever >100.4 F Aspirin (Ecotrin) 81 mg PO DAILY [facility] Last Admin: 09/19/17 10:06 Dose: 81 mg Dextrose (Dextrose 50% Inj) 0 ml IV STAT PRN; Protocol PRN Reason: Hypoglycemia Protocol Dextrose (Glutose 15) 0 gm PO ONCE PRN; Protocol PRN Reason: Hypoglycemia Protocol Epoetin Sarath (Procrit) 10,000 unit SC TTS [facility] Last Admin: 09/17/17 17:28 Dose: 10,000 unit Ferric Sodium Gluconate Complex (Ferrlecit) 125 mg IVPB DAILY [facility] Stop: 09/22/17 11:31 Last Admin: 09/19/17 09:59 Dose: 125 mg Furosemide (Lasix) 40 mg PO DAILY [facility] Last Admin: 09/19/17 09:55 Dose: 40 mg Glucagon (Glucagen Diagnostic Kit) 0 mg IM STAT PRN; Protocol PRN Reason: Hypoglycemia Protocol Heparin Sodium (Porcine) (Heparin) 5,000 units SC Q12 [facility] Last Admin: 09/19/17 10:09 Dose: 5,000 units Dextrose (Dextrose 5% In Water 1000 Ml) 1,000 mls @ 0 mls/hr IV .Q0M PRN; Protocol; Per Protocol PRN Reason: Hypoglycemia Protocol Potassium Chloride (Potassium Chloride 20 Meq/100 Ml) 20 meq in 100 mls @ 50 mls/hr IVPB ONCE ONE Stop: 12/04/17 11:59 Last Admin: 09/19/17 09:55 Dose: 50 mls/hr Insulin Aspart (Novolog) 0 unit SC Q6 [facility] PRN Reason: Protocol Last Admin: 09/19/17 06:05 Dose: 2 unit Insulin Detemir (Levemir) 12 unit SC HS [facility] Last Admin: 09/18/17 22:00 Dose: Not Given Insulin Detemir (Levemir) 12 unit SC QAM [facility] Last Admin: 09/19/17 09:56 Dose: 12 unit Ondansetron HCl (Zofran Inj) 4 mg IVP Q6 PRN PRN Reason: Nausea/Vomiting Last Admin: 09/13/17 11:01 Dose: 4 mg Pantoprazole Sodium (Protonix Inj) 40 mg IVP DAILY [facility] Last Admin: 09/19/17 09:58 Dose: 40 mg Rosuvastatin Calcium (Crestor) 2.5 mg PO HS [facility] Last Admin: 09/18/17 21:58 Dose: 2.5 mg Spironolactone (Aldactone) 50 mg PO DAILY [facility] Last Admin: 09/19/17 10:09 Dose: 50 mg - Labs Labs: 09/19/17 06:03 09/19/17 06:03 PT 10.3 SECONDS (9.7-12.2) 09/10/17 13:52 INR 0.9 09/10/17 13:52 APTT 34 SECONDS (21-34) 09/10/17 13:52 - Constitutional Appears: No Acute Distress, Chronically Ill - Head Exam Head Exam: ATRAUMATIC, NORMAL INSPECTION - Eye Exam Eye Exam: EOMI, Normal appearance - Neck Exam Neck Exam: Normal Inspection. absent: Tenderness - Respiratory Exam Respiratory Exam: Rhonchi, NORMAL BREATHING PATTERN - Cardiovascular Exam Cardiovascular Exam: REGULAR RHYTHM, +S1 - GI/Abdominal Exam GI & Abdominal Exam: Soft. absent: Tenderness - Extremities Exam Extremities Exam: Normal Inspection. absent: Tenderness - Neurological Exam Neurological Exam: Alert, CN II-XII Intact - Skin Skin Exam: Warm. absent: Dry Assessment and Plan (1) MELLY (acute kidney injury) Status: Acute (2) CHF (congestive heart failure) Status: Acute (3) Chronic hemorrhagic anemia Status: Acute (4) Elevated brain natriuretic peptide (BNP) level Status: Acute (5) Elevated troponin I level Status: Acute (6) Non-STEMI (non-ST elevated myocardial infarction) Status: Acute (7) Transient hypotension Status: Acute (8) CKD (chronic kidney disease) stage 4, GFR 15-29 ml/min Status: Acute - Assessment and Plan (Free Text) Plan: increase diuretics replete K CXR to evaluate CHF
--- NOTE | 2017-09-19 15:23 | CP.PCM.PN ---
<Lamar Cedenoa - Last Filed: 09/19/17 15:21> Subjective - Date & Time of Evaluation Date of Evaluation: 09/19/17 Time of Evaluation: 11:00 - Subjective Subjective: Medicine Note for Dr. Weaver's Service Patient was seen and examined at bedside. Patient is lethargic but responds to questions by nodding. Denied any acute complaints. Objective - Vital Signs/Intake and Output Vital Signs (last 24 hours): Temp Pulse Resp BP Pulse Ox 97.9 F 102 H 22 143/53 L 98 09/19/17 12:00 09/19/17 12:00 09/19/17 12:00 09/19/17 12:00 09/19/17 12:00 Intake and Output: 09/19/17 09/19/17 06:59 18:59 Intake Total 60 315 Output Total 100 100 Balance -40 215 - Medications Medications: Current Medications Acetaminophen (Tylenol 650mg/20.3ml Solution Ud) 650 mg PO Q6 PRN PRN Reason: Fever >100.4 F Aspirin (Ecotrin) 81 mg PO DAILY [facility] Last Admin: 09/19/17 10:06 Dose: 81 mg Dextrose (Dextrose 50% Inj) 0 ml IV STAT PRN; Protocol PRN Reason: Hypoglycemia Protocol Dextrose (Glutose 15) 0 gm PO ONCE PRN; Protocol PRN Reason: Hypoglycemia Protocol Epoetin Sarath (Procrit) 10,000 unit SC TTS [facility] Last Admin: 09/17/17 17:28 Dose: 10,000 unit Ferric Sodium Gluconate Complex (Ferrlecit) 125 mg IVPB DAILY [facility] Stop: 09/22/17 11:31 Last Admin: 09/19/17 09:59 Dose: 125 mg Furosemide (Lasix) 40 mg PO BID [facility] Glucagon (Glucagen Diagnostic Kit) 0 mg IM STAT PRN; Protocol PRN Reason: Hypoglycemia Protocol Heparin Sodium (Porcine) (Heparin) 5,000 units SC Q12 [facility] Last Admin: 09/19/17 10:09 Dose: 5,000 units Dextrose (Dextrose 5% In Water 1000 Ml) 1,000 mls @ 0 mls/hr IV .Q0M PRN; Protocol; Per Protocol PRN Reason: Hypoglycemia Protocol Insulin Aspart (Novolog) 0 unit SC Q6 [facility] PRN Reason: Protocol Last Admin: 09/19/17 06:05 Dose: 2 unit Insulin Detemir (Levemir) 12 unit SC HS [facility] Last Admin: 09/18/17 22:00 Dose: Not Given Insulin Detemir (Levemir) 12 unit SC QAM [facility] Last Admin: 09/19/17 09:56 Dose: 12 unit Ondansetron HCl (Zofran Inj) 4 mg IVP Q6 PRN PRN Reason: Nausea/Vomiting Last Admin: 09/13/17 11:01 Dose: 4 mg Pantoprazole Sodium (Protonix Inj) 40 mg IVP DAILY [facility] Last Admin: 09/19/17 09:58 Dose: 40 mg Rosuvastatin Calcium (Crestor) 2.5 mg PO HS [facility] Last Admin: 09/18/17 21:58 Dose: 2.5 mg Spironolactone (Aldactone) 50 mg PO DAILY [facility] Last Admin: 09/19/17 10:09 Dose: 50 mg - Labs Labs: 09/19/17 06:03 09/19/17 06:03 PT 10.3 SECONDS (9.7-12.2) 09/10/17 13:52 INR 0.9 09/10/17 13:52 APTT 34 SECONDS (21-34) 09/10/17 13:52 - Constitutional Appears: No Acute Distress, Chronically Ill - Head Exam Head Exam: NORMAL INSPECTION, NORMOCEPHALIC - Eye Exam Eye Exam: EOMI, Normal appearance, PERRL Pupil Exam: NORMAL ACCOMODATION - ENT Exam ENT Exam: Mucous Membranes Dry - Respiratory Exam Respiratory Exam: Rhonchi - Cardiovascular Exam Cardiovascular Exam: Tachycardia - GI/Abdominal Exam GI & Abdominal Exam: Soft, Normal Bowel Sounds. absent: Distended, Tenderness - Extremities Exam Extremities Exam: Normal Inspection - Neurological Exam Neurological Exam: Alert, Awake - Psychiatric Exam Psychiatric exam: Normal Affect, Normal Mood - Skin Skin Exam: Dry, Warm Assessment and Plan - Assessment and Plan (Free Text) Plan: (1) Acute Renal Failure and Electrolyte Imbalance Assessment & Plan: * Nephrology Dr. Chowdhury/Landry is following * Lasix increased to 40mg PO BID by nephrology, renal failure is improving. Will be restarted in liquid feedings now that patient passed swallow eval. Continue to replace potassium. As per nephrology - better to let BERYL resolve, as performing cardiac cath can put the patient back in renal failure. If cardiac cath will be peformed- patient will need to be adequetly hydrated * BUN/Cr worsened and patient and patient was trial of IV Lasix since 09/12/17. Cr is slowing improving and holding off on HD for now. IV Lasix changed to PO now at 40 mg 1x/day on 09/17/17 * Potassium Low at 3.2 likely secondary to Diamox (which has been discontinued 09/17/17) and Lasix. Patient is on Aldactone 50 mg PO 1x/day. Patient given total of 60 mEQ of KCl 09/17/17 and 40 mEQ on 09/18/17. (2) Grade I Diastolic Heart Failure F/U CXR PA&Lateral - due to rales heard on exam Echocardiogram 09/10/17 showed EF of 58% with hypokinetic anterior and apical septum and Grade I Abnormal Relaxation Patter. Moderate Tricuspid regurgitation and moderate to severe pulmonary HTN Elevated ProBNP upon admission Chest X Ray 09/13/17 showed increased pulmonary vascular congestion Chest X Ray 09/14/17 showed decreased right side infiltrate and limited left perihilar infiltrate remaining Chest X Ray 09/16/17 showed resolution of right upper lobe opacity, and there is questionable opacity medial right lung base (3) Acute Respiratory Failure Likely secondary to the increased pulmonary vascular congestion from the blood transfusions on 09/12/17, Acute Renal Failure, and Diastolic Heart Failure Patient intubated and placed on vent by ICU team 09/13/17 and was successfully extubated 09/16/17 Sputum grew Staph aureus - for which patient is now on Ancef 1 gram Q8H (4) Leukocytosis - RESOLVED ID Dr. Smith Leukocytosis resolved Elevated at 11.9 09/18/17 Fever of 100.7 on 09/15/17 and patient was started on Vancomycin secondary to Sputum Culture 09/13/17 shows preliminary Staph aureus. However, Chest X Ray 09/16/17 did not show any infiltrates and as the leukocytosis has resolved, ICU Team discontinued the Vancomycin 09/16/17. Blood Culture 09/10/17 is Negative To Date Urine Culture 09/10/17 showed multiple species therefore another Urine Culture ordered 09/13/17 (5) Elevated Troponin Assessment & Plan: * Cardiology Dr. Dunbar on board--> help appreciated- once patient is cleared by nephrology. Patient is for cardiac catherization * Elevated Troponin: 0.6460--> 0.4850--> 0.5510 * On Aspirin 81mg PO daily (6) Diabetes 2 Assessment & Plan: HgBa1c: 7.8 Hypoglycemia protocol Crestor 2.5mg PO qHS Off metformin, glipizide on admission given acute renal failure Levemir was adjusted: Levemir 12 units QAM and 12 units HS on 09/18/17 based upon 24 hours ISS requirement Aspart sliding scale Status: Chronic (7) Hypertension Assessment & Plan: Off anti-hypertensives (Hydralazine, Metoprolol XL, Amlodipine, Losartan/HCTZ, Lasix, Imdur) because of hypotension upon admission She is on Lasix and Aldactone as mentioned in Assessment and Plan #1 Currently stable Status: Chronic (8) Anemia Assessment & Plan: retic count: 2.2 Iron: 44 TIBC: 220 iron saturation: 20 Ferritin: 31 Ferrlicit 125 mg IV 1x/day through 09/22/17 ProCrit 10,000 Units SC T-T-S HgB dropped to 7.0 and 2 units PRBC transfused 09/12/17. HgB/Hct is currently stable. Serum Immunofixation with faint band in IgG and Lambda likely reactive. Repeat Serum Immunofixation in 3 to 6 months as outpatient. Heme/Onc Dr. Toña Lentz Stool Occult Blood 09/10/17 and 09/13/17 are negative Status: Chronic (9). Elevated LFTs AST and ALT are declining (10) Polypharmacy Assessment & Plan: Held home medications on admission including PO diabetic medications. Status: Acute (11) Vertigo Assessment & Plan: CT Head: negative on admission Patient has seen previously Dr. 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 F/U PT evaluation and treatment Status: Chronic (13) Prophylactic measure Assessment & Plan: Protonix 40mg IV q daily Heparin 5,000 Units SC Q8H Tylenol 650 mg PO Q6H PRN Fever Zofran 4 mg IV Q6H PRN N/V Status: Acute Milka Brambilanatalia [phone] Pao Weller DO, PGY-1 <Poly Weaver V - Last Filed: 09/20/17 00:05> Objective - Vital Signs/Intake and Output Vital Signs (last 24 hours): Temp Pulse Resp BP Pulse Ox 98.4 F 112 H 24 144/56 L 95 09/19/17 20:00 09/19/17 21:06 09/19/17 20:00 09/19/17 20:00 09/19/17 20:00 Intake and Output: 09/19/17 09/20/17 18:59 06:59 Intake Total 535 Output Total 725 Balance -190 - Medications Medications: Current Medications Acetaminophen (Tylenol 650mg/20.3ml Solution Ud) 650 mg PO Q6 PRN PRN Reason: Fever >100.4 F Albuterol/Ipratropium (Duoneb 3 Mg/0.5 Mg (3 Ml) Ud) 3 ml INH RQ6 [facility] Last Admin: 09/19/17 21:05 Dose: 3 ml Aspirin (Ecotrin) 81 mg PO DAILY [facility] Last Admin: 09/19/17 10:06 Dose: 81 mg Dextrose (Dextrose 50% Inj) 0 ml IV STAT PRN; Protocol PRN Reason: Hypoglycemia Protocol Dextrose (Glutose 15) 0 gm PO ONCE PRN; Protocol PRN Reason: Hypoglycemia Protocol Epoetin Sarath (Procrit) 10,000 unit SC TTS [facility] Last Admin: 09/17/17 17:28 Dose: 10,000 unit Ferric Sodium Gluconate Complex (Ferrlecit) 125 mg IVPB DAILY [facility] Stop: 09/22/17 11:31 Last Admin: 09/19/17 09:59 Dose: 125 mg Furosemide (Lasix) 40 mg PO BID [facility] Last Admin: 09/19/17 17:07 Dose: 40 mg Glucagon (Glucagen Diagnostic Kit) 0 mg IM STAT PRN; Protocol PRN Reason: Hypoglycemia Protocol Heparin Sodium (Porcine) (Heparin) 5,000 units SC Q12 [facility] Last Admin: 09/19/17 21:11 Dose: 5,000 units Dextrose (Dextrose 5% In Water 1000 Ml) 1,000 mls @ 0 mls/hr IV .Q0M PRN; Protocol; Per Protocol PRN Reason: Hypoglycemia Protocol Cefazolin Sodium 500 mg/ (Dextrose) 50 mls @ 100 mls/hr IVPB Q8H [facility] Last Admin: 09/19/17 17:18 Dose: 100 mls/hr Insulin Aspart (Novolog) 0 unit SC Q6 [facility] PRN Reason: Protocol Last Admin: 09/19/17 23:37 Dose: 4 unit Insulin Detemir (Levemir) 12 unit SC HS [facility] Last Admin: 09/19/17 21:12 Dose: Not Given Insulin Detemir (Levemir) 12 unit SC QAM [facility] Last Admin: 09/19/17 09:56 Dose: 12 unit Ondansetron HCl (Zofran Inj) 4 mg IVP Q6 PRN PRN Reason: Nausea/Vomiting Last Admin: 09/13/17 11:01 Dose: 4 mg Pantoprazole Sodium (Protonix Inj) 40 mg IVP DAILY [facility] Last Admin: 09/19/17 09:58 Dose: 40 mg Rosuvastatin Calcium (Crestor) 2.5 mg PO HS [facility] Last Admin: 09/19/17 21:12 Dose: 2.5 mg Spironolactone (Aldactone) 50 mg PO DAILY [facility] Last Admin: 09/19/17 10:09 Dose: 50 mg - Labs Labs: 09/19/17 06:03 09/19/17 06:03 PT 10.3 SECONDS (9.7-12.2) 09/10/17 13:52 INR 0.9 09/10/17 13:52 APTT 34 SECONDS (21-34) 09/10/17 13:52 Assessment and Plan (1) Acute renal failure Status: Acute (2) Non-STEMI (non-ST elevated myocardial infarction) Status: Acute (3) Diabetes Status: Chronic (4) Hypotension Status: Acute (5) Hypertension Status: Chronic (6) Anemia Status: Chronic (7) Elevated brain natriuretic peptide (BNP) level Status: Acute (8) Polypharmacy Status: Acute (9) Pneumonia Status: Suspected (10) Vertigo Status: Acute (11) Prophylactic measure Status: Acute Attending/Attestation - Attestation I have personally seen and examined this patient.: Yes I have fully participated in the care of the patient.: Yes I have reviewed all pertinent clinical information, including history, physical exam and plan: Yes Notes (Text): Patient seen, examined, and case discussed with day-time resident. Patient seen with niece and patient's daughter at bedside, assisting in translation. Patient denies dizziness, denies vertigo, sometimes reports sore thorat, denies chest pain, denies palpitations, denies abdominal pain, patient using bedpan for bowel movements, discussed with patient's nurse no diarrhea. Potassium repleted today. Discussed with nephrology, patient will need time prior to consideration for cardiac cath. Cardiology has spoken with nephrology as well. Patient ordered for repeat chest xray +wheezes and rales on exam today. Start on Duonebs PRN shortness of breathe. Lasix dose increased by nephrology Patient passed swallow eval today; will start diet per recommendations. Assessment/Plan (1) Acute Renal Failure and Electrolyte Imbalance Assessment & Plan: * Nephrology Dr. Chowdhury/Landry is following * Lasix increased to 40mg PO BID by nephrology today, renal failure is improving. * Will be restarted in liquid feedings now that patient passed swallow eval. Continue to replace potassium. As per nephrology - better to let BERYL resolve, as performing cardiac cath can put the patient back in renal failure. If cardiac cath will be peformed- patient will need to be adequetly hydrated * Potassium repleted * Potassium Low at 3.2 likely secondary to Diamox (which has been discontinued 09/17/17) and Lasix. * Patient is on Aldactone 50 mg PO 1x/day. Patient given total of 60 mEQ of KCl 09/17/17 and 40 mEQ on 09/18/17. (2) Grade I Diastolic Heart Failure * Cardiology: Dr Dunbar is following * Echocardiogram 09/10/17 showed EF of 58% with hypokinetic anterior and apical septum and Grade I Abnormal Relaxation Patter. Moderate Tricuspid regurgitation and moderate to severe pulmonary HTN * Elevated ProBNP upon admission * Chest X Ray 09/13/17 showed increased pulmonary vascular congestion * Chest X Ray 09/14/17 showed decreased right side infiltrate and limited left perihilar infiltrate remaining * Chest X Ray 09/16/17 showed resolution of right upper lobe opacity, and there is questionable opacity medial right lung base * repeat Chest xray PA and Lateral 09/19--f/u * f/u intake and output * f/u daily weight (lost about 10lbs) (3) Acute Respiratory Failure * Likely secondary to the increased pulmonary vascular congestion from the blood transfusions on 09/12/17, Acute Renal Failure, and Diastolic Heart Failure * Patient intubated and placed on vent by ICU team 09/13/17 and was successfully extubated 09/16/17 * Echocardiogram 09/10/17 showed EF of 58% with hypokinetic anterior and apical septum and Grade I Abnormal Relaxation Patter. Moderate Tricuspid regurgitation and moderate to severe pulmonary HTN * repeat Chest xray PA and Lateral 09/19--f/u * Patient's sputum grew Staph aureus - for which patient is 09/19 on Ancef 1 gram Q8H (4) Leukocytosis - RESOLVED * ID Dr. Smith is following * Leukocytosis resolved, afebrile * Elevated at 11.9 09/18/17 * Fever of 100.7 on 09/15/17 and patient was started on Vancomycin secondary to Sputum Culture 09/13/17 shows preliminary Staph aureus. However, Chest X Ray 09/16/17 did not show any infiltrates and as the leukocytosis has resolved, ICU Team discontinued the Vancomycin 09/16/17. * Blood Culture 09/10/17 is Negative To Date * Urine Culture 09/10/17 showed multiple species therefore another Urine Culture ordered 09/13/17-->pending * Patient's sputum grew Staph aureus - for which patient is 09/19 on Ancef 1 gram Q8H (5) Elevated Troponin Assessment & Plan: * Cardiology Dr. Dunbar on board--> help appreciated- once patient is cleared by nephrology. * Elevated Troponin: 0.6460--> 0.4850--> 0.5510 * On Aspirin 81mg PO daily * Order for MARTHA tomorrow given improvement in JONA * Crestor 2.5mg PO qHS (6) Diabetes 2 Assessment & Plan: * HgBa1c: 7.8 * Hypoglycemia protocol * Crestor 2.5mg PO qHS * Off metformin, glipizide on admission given acute renal failure * Levemir was adjusted: Levemir 12 units QAM and 12 units HS on 09/18/17 based upon 24 hours ISS requirement * Patient did not evening dose of Levemir given she had poor appetite * Aspart sliding scale Status: Chronic (7) Hypertension Assessment & Plan: * Off anti-hypertensives (Hydralazine, Metoprolol XL, Amlodipine, Losartan/HCTZ , Lasix, Imdur) because of hypotension upon admission * She is on Lasix and Aldactone as mentioned in Assessment and Plan #1 * Currently stable * Improved compared to on admission Status: Chronic (8) Anemia Assessment & Plan: * Heme/Onc Dr. Toña Lentz * retic count: 2.2 * Iron: 44 * TIBC: 220 * iron saturation: 20 * Ferritin: 31 * Ferrlicit 125 mg IV 1x/day through 09/22/17 * ProCrit 10,000 Units SC T-T-S * HgB dropped to 7.0 and 2 units PRBC transfused 09/12/17. HgB/Hct is currently stable. * Serum Immunofixation with faint band in IgG and Lambda likely reactive. Repeat Serum Immunofixation in 3 to 6 months as outpatient. * Stool Occult Blood 09/10/17 and 09/13/17 are negative Status: Chronic (9). Elevated LFTs * monitor LFTs * on low dose statin (10) Polypharmacy Assessment & Plan: * Held home medications on admission including PO diabetic medications. Status: Acute (11) Vertigo-->resolved Assessment & Plan: * CT Head: negative on admission * Patient has seen previously Dr. 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 * Patient normally walks with cane at home * F/U PT evaluation and treatment Status: Chronic (13) Prophylactic measure Assessment & Plan: * Protonix 40mg IV q daily * Heparin 5,000 Units SC Q12H * Tylenol 650 mg PO Q6H PRN Fever * Zofran 4 mg IV Q6H PRN N/V Status: Acute Milka Rogers [phone] who was at bedside and assisted in translation.
--- NOTE | 2017-09-19 15:32 | RAD ---
HISTORY: eval CHF COMPARISON: 09/16/2017 TECHNIQUE: Chest PA and lateral FINDINGS: LUNGS: No active pulmonary disease. PLEURA: Blunting of both costophrenic sulci in the lateral view suggestive of small pleural CARDIOVASCULAR: Effusions. Mild congestive change. Normal heart size. OSSEOUS STRUCTURES: No significant abnormalities. VISUALIZED UPPER ABDOMEN: Normal. OTHER FINDINGS: None. IMPRESSION: Mild congestive change with probable small pleural effusions. No evidence of pulmonary edema.
--- NOTE | 2017-09-19 19:09 | PN ---
DATE: SUBJECTIVE: The patient is comfortable in bed. She denies any chest pain. No reported ventricular arrhythmia or hypotension. PHYSICAL EXAMINATION: VITAL SIGNS: Blood pressure 143/53, heart rate 102, temperature 97.9, respiration 22. HEENT: [place] conjunctivae. CHEST: Bilateral rhonchi. HEART: S1, S2, regular. ABDOMEN: Soft. EXTREMITIES: No edema. LABORATORY DATA: SMA-7: Sodium 151, potassium 3.1, chloride 110, CO2 of 29, glucose 205, BUN 61, creatinine 1.4. Calcium is below normal at 7.9. Hemoglobin and hematocrit 9.8 and 31.2. White count and platelet count are within normal limits. Today's chest x-ray report, mild congestive changes with probable small pleural effusion. No evidence of pulmonary edema. ASSESSMENT: 1. Status post respiratory failure. 2. Non-ST elevation myocardial infarction. 3. Chronic renal insufficiency. 4. Anemia. RECOMMENDATIONS: Continue Aldactone 50 mg once a day, cefazolin 500 mg intravenously q. 8 hours, Protonix 40 mg intravenously once a day, Lasix at 40 mg p.o. twice a day, subcutaneous heparin 5000 units q. 12 hours. I discussed the cardiac catheterization procedure with the electrical wiring lineman, Dr. Chowdhury who suggested to wait for a few more days. I do agree with this decision as cardiac catheterization will most likely end up with having the patient being placed on hemodialysis probably within short period of time. Elvis Dunbar MD
[2017-09-19] MEDS: Albuterol-Ipratrop 3 mg / 0.5 (3 ml) UD INH SCH (21:05)
[2017-09-19] MEDS: Rosuvastatin Calcium 2.5 mg Tab PO SCH (21:12)
--- NOTE | 2017-09-19 22:22 | CP.PCM.PN ---
Subjective - Date & Time of Evaluation Date of Evaluation: 09/19/17 Time of Evaluation: 19:50 - Subjective Subjective: Awake Objective - Vital Signs/Intake and Output Vital Signs (last 24 hours): Temp Pulse Resp BP Pulse Ox 98.4 F 112 H 24 144/56 L 95 09/19/17 20:00 09/19/17 21:06 09/19/17 20:00 09/19/17 20:00 09/19/17 20:00 Intake and Output: 09/19/17 09/20/17 18:59 06:59 Intake Total 535 Output Total 725 Balance -190 - Medications Medications: Current Medications Acetaminophen (Tylenol 650mg/20.3ml Solution Ud) 650 mg PO Q6 PRN PRN Reason: Fever >100.4 F Albuterol/Ipratropium (Duoneb 3 Mg/0.5 Mg (3 Ml) Ud) 3 ml INH RQ6 [facility] Last Admin: 09/19/17 21:05 Dose: 3 ml Aspirin (Ecotrin) 81 mg PO DAILY [facility] Last Admin: 09/19/17 10:06 Dose: 81 mg Dextrose (Dextrose 50% Inj) 0 ml IV STAT PRN; Protocol PRN Reason: Hypoglycemia Protocol Dextrose (Glutose 15) 0 gm PO ONCE PRN; Protocol PRN Reason: Hypoglycemia Protocol Epoetin Sarath (Procrit) 10,000 unit SC TTS [facility] Last Admin: 09/17/17 17:28 Dose: 10,000 unit Ferric Sodium Gluconate Complex (Ferrlecit) 125 mg IVPB DAILY [facility] Stop: 09/22/17 11:31 Last Admin: 09/19/17 09:59 Dose: 125 mg Furosemide (Lasix) 40 mg PO BID [facility] Last Admin: 09/19/17 17:07 Dose: 40 mg Glucagon (Glucagen Diagnostic Kit) 0 mg IM STAT PRN; Protocol PRN Reason: Hypoglycemia Protocol Heparin Sodium (Porcine) (Heparin) 5,000 units SC Q12 [facility] Last Admin: 09/19/17 21:11 Dose: 5,000 units Dextrose (Dextrose 5% In Water 1000 Ml) 1,000 mls @ 0 mls/hr IV .Q0M PRN; Protocol; Per Protocol PRN Reason: Hypoglycemia Protocol Cefazolin Sodium 500 mg/ (Dextrose) 50 mls @ 100 mls/hr IVPB Q8H [facility] Last Admin: 09/19/17 17:18 Dose: 100 mls/hr Insulin Aspart (Novolog) 0 unit SC Q6 [facility] PRN Reason: Protocol Last Admin: 09/19/17 17:04 Dose: 5 unit Insulin Detemir (Levemir) 12 unit SC HS [facility] Last Admin: 09/19/17 21:12 Dose: Not Given Insulin Detemir (Levemir) 12 unit SC QAM [facility] Last Admin: 09/19/17 09:56 Dose: 12 unit Ondansetron HCl (Zofran Inj) 4 mg IVP Q6 PRN PRN Reason: Nausea/Vomiting Last Admin: 09/13/17 11:01 Dose: 4 mg Pantoprazole Sodium (Protonix Inj) 40 mg IVP DAILY [facility] Last Admin: 09/19/17 09:58 Dose: 40 mg Rosuvastatin Calcium (Crestor) 2.5 mg PO HS [facility] Last Admin: 09/19/17 21:12 Dose: 2.5 mg Spironolactone (Aldactone) 50 mg PO DAILY [facility] Last Admin: 09/19/17 10:09 Dose: 50 mg - Labs Labs: 09/19/17 06:03 09/19/17 06:03 PT 10.3 SECONDS (9.7-12.2) 09/10/17 13:52 INR 0.9 09/10/17 13:52 APTT 34 SECONDS (21-34) 09/10/17 13:52 - Head Exam Head Exam: ATRAUMATIC - Eye Exam Eye Exam: Normal appearance - ENT Exam ENT Exam: Mucous Membranes Dry - Respiratory Exam Respiratory Exam: NORMAL BREATHING PATTERN - Cardiovascular Exam Cardiovascular Exam: +S1, +S2 - GI/Abdominal Exam GI & Abdominal Exam: Normal Bowel Sounds Assessment and Plan (1) Anemia Assessment & Plan: iron deficiency; on IV iron anemia of renal disease Status: Chronic
[2017-09-20] MEDS: Albuterol-Ipratrop 3 mg / 0.5 (3 ml) UD INH SCH ×6 (01:11→23:51)
[2017-09-20] MEDS: (Novolog) Insulin Aspart, Recombinant 100 u/ml 10 ml vial SC SCH ×3 (05:59→17:54)
[2017-09-20 06:52] LABS: BASO % 0.3 % (0.0-2.0); HEMATOCRIT 34.6 % (34.0-47.0); LYMPH # 0.5 K/uL (1.0-4.3); LYMPH % 5.3 % (20.0-40.0); MEAN CELL VOLUME 78.6 fL (81.0-99.0); MEAN CORPUSCULAR HGB CONC 30.5 g/dL (33.0-37.0); MEAN PLATELET VOLUME 9.3 fL (7.2-11.7); MONO # 1.2 K/uL (0.0-0.8); NRBC % 3.4 % (0.0-2.0); PLATELET COUNT 315 K/uL (130-400); WHITE BLOOD COUNT 9.4 K/uL (4.8-10.8)
[2017-09-20 07:08] LABS: ALB/GLOB RATIO 0.8 (1.0-2.1); BILIRUBIN,TOTAL 0.5 mg/dL (0.2-1.3); CALCIUM 8.6 mg/dl (8.6-10.4); MAGNESIUM 2.2 mg/dL (1.6-2.3); PHOSPHOROUS 5.3 mg/dL (2.5-4.5); POTASSIUM 4.1 mmol/L (3.6-5.2); TOTAL PROTEIN 7.2 g/dL (6.3-8.3)
--- NOTE | 2017-09-20 07:08 | CP.PCM.PN ---
<Tiffanie Cedeno - Last Filed: 09/20/17 10:18> Subjective - Date & Time of Evaluation Date of Evaluation: 09/20/17 Time of Evaluation: 10:00 - Subjective Subjective: Medicine Note for Dr. Weaver's Service Patient was seen and examined at bedside. Patient has labored breathing, tachypnic. ROS unattainable. Spoke to family at bedside and will be meeting with the Niece to discuss the possibility of intubation if she does not improve on BiPAP. Objective - Vital Signs/Intake and Output Vital Signs (last 24 hours): Temp Pulse Resp BP Pulse Ox 97.5 F L 93 H 21 148/55 L 94 L 09/20/17 04:00 09/20/17 04:00 09/20/17 04:00 09/20/17 04:00 09/20/17 04:00 Intake and Output: 09/20/17 09/20/17 06:59 18:59 Intake Total 290 Output Total 1 Balance 289 - Medications Medications: Current Medications Acetaminophen (Tylenol 650mg/20.3ml Solution Ud) 650 mg PO Q6 PRN PRN Reason: Fever >100.4 F Albuterol/Ipratropium (Duoneb 3 Mg/0.5 Mg (3 Ml) Ud) 3 ml INH RQ6 [facility] Last Admin: 09/20/17 01:11 Dose: 3 ml Aspirin (Ecotrin) 81 mg PO DAILY [facility] Last Admin: 09/19/17 10:06 Dose: 81 mg Dextrose (Dextrose 50% Inj) 0 ml IV STAT PRN; Protocol PRN Reason: Hypoglycemia Protocol Dextrose (Glutose 15) 0 gm PO ONCE PRN; Protocol PRN Reason: Hypoglycemia Protocol Epoetin Sarath (Procrit) 10,000 unit SC TTS [facility] Last Admin: 09/17/17 17:28 Dose: 10,000 unit Ferric Sodium Gluconate Complex (Ferrlecit) 125 mg IVPB DAILY [facility] Stop: 09/22/17 11:31 Last Admin: 09/19/17 09:59 Dose: 125 mg Furosemide (Lasix) 40 mg PO BID [facility] Last Admin: 09/19/17 17:07 Dose: 40 mg Glucagon (Glucagen Diagnostic Kit) 0 mg IM STAT PRN; Protocol PRN Reason: Hypoglycemia Protocol Heparin Sodium (Porcine) (Heparin) 5,000 units SC Q12 [facility] Last Admin: 09/19/17 21:11 Dose: 5,000 units Dextrose (Dextrose 5% In Water 1000 Ml) 1,000 mls @ 0 mls/hr IV .Q0M PRN; Protocol; Per Protocol PRN Reason: Hypoglycemia Protocol Cefazolin Sodium 500 mg/ (Dextrose) 50 mls @ 100 mls/hr IVPB Q8H [facility] Last Admin: 09/20/17 00:27 Dose: 100 mls/hr Insulin Aspart (Novolog) 0 unit SC Q6 [facility] PRN Reason: Protocol Last Admin: 09/20/17 05:59 Dose: 3 unit Insulin Detemir (Levemir) 12 unit SC HS [facility] Last Admin: 09/19/17 21:12 Dose: Not Given Insulin Detemir (Levemir) 12 unit SC QAM [facility] Last Admin: 09/19/17 09:56 Dose: 12 unit Ondansetron HCl (Zofran Inj) 4 mg IVP Q6 PRN PRN Reason: Nausea/Vomiting Last Admin: 09/13/17 11:01 Dose: 4 mg Pantoprazole Sodium (Protonix Inj) 40 mg IVP DAILY [facility] Last Admin: 09/19/17 09:58 Dose: 40 mg Rosuvastatin Calcium (Crestor) 2.5 mg PO HS [facility] Last Admin: 09/19/17 21:12 Dose: 2.5 mg Spironolactone (Aldactone) 50 mg PO DAILY [facility] Last Admin: 09/19/17 10:09 Dose: 50 mg - Labs Labs: 09/19/17 06:03 09/19/17 06:03 PT 10.3 SECONDS (9.7-12.2) 09/10/17 13:52 INR 0.9 09/10/17 13:52 APTT 34 SECONDS (21-34) 09/10/17 13:52 - Additional Findings Additional findings: - Constitutional Appears: No Acute Distress, Chronically Ill, toxic - Head Exam Head Exam: NORMAL INSPECTION, NORMOCEPHALIC - Eye Exam Eye Exam: EOMI, Normal appearance, PERRL Pupil Exam: NORMAL ACCOMODATION - ENT Exam ENT Exam: Mucous Membranes Dry - Respiratory Exam Respiratory Exam: Tachypnea, no rales noted - Cardiovascular Exam Cardiovascular Exam: Tachycardia - GI/Abdominal Exam GI & Abdominal Exam: Soft, Normal Bowel Sounds. absent: Distended, Tenderness - Extremities Exam Extremities Exam: Normal Inspection - Neurological Exam Neurological Exam: Alert, Awake - Psychiatric Exam Psychiatric exam: Normal Affect, Normal Mood - Skin Skin Exam: Dry, Warm Assessment and Plan - Assessment and Plan (Free Text) Plan: (1) Acute Renal Failure and Electrolyte Imbalance Assessment & Plan: * Nephrology Dr. Chowdhury/Landry is following * Increased in BUN/CRE - likely due to increase in lasix, Lasix changed to 20mg IVP BID * Lasix increased to 40mg PO BID by nephrology, renal failure is improving. Will be restarted in liquid feedings now that patient passed swallow eval. Continue to replace potassium. As per nephrology - better to let BERYL resolve, as performing cardiac cath can put the patient back in renal failure. If cardiac cath will be peformed- patient will need to be adequetly hydrated * BUN/Cr worsened and patient and patient was trial of IV Lasix since 09/12/17. Cr is slowing improving and holding off on HD for now. IV Lasix changed to PO now at 40 mg 1x/day on 09/17/17 * Potassium Low at 3.2 likely secondary to Diamox (which has been discontinued 09/17/17) and Lasix. Patient is on Aldactone 50 mg PO 1x/day. Patient given total of 60 mEQ of KCl 09/17/17 and 40 mEQ on 09/18/17. (2) Grade I Diastolic Heart Failure 09/19 CXR PA&Lateral - Mild congestive change with probable small pleural effusions. No evidence of pulmonary edema. Patient placed on Bipap due to acute respiratory distress. Monitor Is & Os, daily weights (Lost about 10 lbs since admission) Echocardiogram 09/10/17 showed EF of 58% with hypokinetic anterior and apical septum and Grade I Abnormal Relaxation Patter. Moderate Tricuspid regurgitation and moderate to severe pulmonary HTN Elevated ProBNP upon admission Chest X Ray 09/13/17 showed increased pulmonary vascular congestion Chest X Ray 09/14/17 showed decreased right side infiltrate and limited left perihilar infiltrate remaining Chest X Ray 09/16/17 showed resolution of right upper lobe opacity, and there is questionable opacity medial right lung base (3) Acute Respiratory Failure Pulmonology consulted- Dr. Blair - help appreciated Patient placed on Bipap due to acute respiratory distress- possible intubation if she does not improve. F/U CT chest Likely secondary to the increased pulmonary vascular congestion from the blood transfusions on 09/12/17, Acute Renal Failure, and Diastolic Heart Failure Patient intubated and placed on vent by ICU team 09/13/17 and was successfully extubated 09/16/17 Sputum culture grew Staph aureus - for which patient is now on Ancef 1 gram Q8H - 09/19 (4) Leukocytosis - RESOLVED ID Dr. Smith F/U repeat UA and UC Elevated at 11.9 09/18/17 Fever of 100.7 on 09/15/17 and patient was started on Vancomycin secondary to Sputum Culture 09/13/17 shows preliminary Staph aureus. However, Chest X Ray 09/16/17 did not show any infiltrates and as the leukocytosis has resolved, ICU Team discontinued the Vancomycin 09/16/17. Blood Culture 09/10/17 is Negative To Date Urine Culture 09/10/17 showed multiple species therefore another Urine Culture ordered 09/13/17 (5) Elevated Troponin Assessment & Plan: * Cardiology Dr. Dunbar on board--> help appreciated- once patient is cleared by nephrology. Will wait few days, before performing cardiac cath * Elevated Troponin: 0.6460--> 0.4850--> 0.5510 * On Aspirin 81mg PO daily * 09/20/17 Troponin 3.78, f/u EKG (6) Diabetes 2 Assessment & Plan: HgBa1c: 7.8 Hypoglycemia protocol Crestor 2.5mg PO qHS Off metformin, glipizide on admission given acute renal failure Levemir was adjusted: Levemir 12 units QAM and 12 units HS on 09/18/17 based upon 24 hours ISS requirement Aspart sliding scale Status: Chronic (7) Hypertension Assessment & Plan: Off anti-hypertensives (Hydralazine, Metoprolol XL, Amlodipine, Losartan/HCTZ, Lasix, Imdur) because of hypotension upon admission She is on Lasix and Aldactone as mentioned in Assessment and Plan #1 Currently stable Status: Chronic (8) Anemia Assessment & Plan: Heme/Onc Dr. Toña Lentz retic count: 2.2 Iron: 44 TIBC: 220 iron saturation: 20 Ferritin: 31 Ferrlicit 125 mg IV 1x/day through 09/22/17 ProCrit 10,000 Units SC T-T-S HgB dropped to 7.0 and 2 units PRBC transfused 09/12/17. HgB/Hct is currently stable. Serum Immunofixation with faint band in IgG and Lambda likely reactive. Repeat Serum Immunofixation in 3 to 6 months as outpatient. Stool Occult Blood 09/10/17 and 09/13/17 are negative Status: Chronic (9). Elevated LFTs AST and ALT are declining (10) Polypharmacy Assessment & Plan: Held home medications on admission including PO diabetic medications. Status: Acute (11) Vertigo Assessment & Plan: CT Head: negative on admission Patient has seen previously Dr. 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 PT EVAL - recommends SILVIANO Status: Chronic (13) Prophylactic measure Assessment & Plan: Protonix 40mg IV q daily Heparin 5,000 Units SC Q8H Tylenol 650 mg PO Q6H PRN Fever Zofran 4 mg IV Q6H PRN N/V Status: Acute Milka Rogers [phone] Pao Weller DO, PGY-1 <Poly Weaver V - Last Filed: 09/20/17 16:41> Objective - Vital Signs/Intake and Output Vital Signs (last 24 hours): Temp Pulse Resp BP Pulse Ox 98.3 F 107 H 23 133/51 L 94 L 09/20/17 12:00 09/20/17 12:00 09/20/17 12:00 09/20/17 12:00 09/20/17 04:00 Intake and Output: 09/20/17 09/20/17 06:59 18:59 Intake Total 290 500 Output Total 1 25 Balance 289 475 - Medications Medications: Current Medications Albuterol/Ipratropium (Duoneb 3 Mg/0.5 Mg (3 Ml) Ud) 3 ml INH RQ4 [facility] Last Admin: 09/20/17 14:19 Dose: 3 ml Aspirin (Ecotrin) 81 mg PO DAILY [facility] Last Admin: 09/20/17 10:39 Dose: Not Given Dextrose (Dextrose 50% Inj) 0 ml IV STAT PRN; Protocol PRN Reason: Hypoglycemia Protocol Dextrose (Glutose 15) 0 gm PO ONCE PRN; Protocol PRN Reason: Hypoglycemia Protocol Epoetin Sarath (Procrit) 10,000 unit SC TTS [facility] Last Admin: 09/20/17 11:12 Dose: 10,000 unit Ferric Sodium Gluconate Complex (Ferrlecit) 125 mg IVPB DAILY [facility] Stop: 09/22/17 11:31 Last Admin: 09/20/17 10:03 Dose: 125 mg Furosemide (Lasix) 20 mg IVP BID [facility] Last Admin: 09/20/17 13:06 Dose: Not Given Glucagon (Glucagen Diagnostic Kit) 0 mg IM STAT PRN; Protocol PRN Reason: Hypoglycemia Protocol Heparin Sodium (Porcine) (Heparin) 5,000 units SC Q8 [facility] Dextrose (Dextrose 5% In Water 1000 Ml) 1,000 mls @ 0 mls/hr IV .Q0M PRN; Protocol; Per Protocol PRN Reason: Hypoglycemia Protocol Cefazolin Sodium 500 mg/ (Dextrose) 50 mls @ 100 mls/hr IVPB Q8H [facility] Last Admin: 09/20/17 08:34 Dose: 100 mls/hr Insulin Aspart (Novolog) 0 unit SC Q6 [facility] PRN Reason: Protocol Last Admin: 09/20/17 12:54 Dose: Not Given Insulin Detemir (Levemir) 12 unit SC HS [facility] Last Admin: 09/19/17 21:12 Dose: Not Given Insulin Detemir (Levemir) 12 unit SC QAM [facility] Last Admin: 09/20/17 10:40 Dose: Not Given Ondansetron HCl (Zofran Inj) 4 mg IVP Q6 PRN PRN Reason: Nausea/Vomiting Last Admin: 09/13/17 11:01 Dose: 4 mg Pantoprazole Sodium (Protonix Inj) 40 mg IVP DAILY [facility] Last Admin: 09/20/17 10:03 Dose: 40 mg Rosuvastatin Calcium (Crestor) 2.5 mg PO HS [facility] Last Admin: 09/19/17 21:12 Dose: 2.5 mg - Labs Labs: 09/20/17 06:37 09/20/17 06:37 PT 10.3 SECONDS (9.7-12.2) 09/10/17 13:52 INR 0.9 09/10/17 13:52 APTT 34 SECONDS (21-34) 09/10/17 13:52 Assessment and Plan (1) Acute renal failure Status: Acute (2) Non-STEMI (non-ST elevated myocardial infarction) Status: Acute (3) Diabetes Status: Chronic (4) Hypotension Status: Acute (5) Hypertension Status: Chronic (6) Anemia Status: Chronic (7) Elevated brain natriuretic peptide (BNP) level Status: Acute (8) Polypharmacy Status: Acute (9) Pneumonia Status: Suspected (10) Vertigo Status: Acute (11) Prophylactic measure Status: Acute Attending/Attestation - Attestation I have personally seen and examined this patient.: Yes I have fully participated in the care of the patient.: Yes I have reviewed all pertinent clinical information, including history, physical exam and plan: Yes Notes (Text): Patient seen, examined, and case discussed with day-time resident. Patient seen with her 2 daughters at bedside. Patient appeared tachypnic on nasal cannula. ABG and chest xray ordered. Patient had CO2 retention on ABG. Given dose of Solumedrol 40mg IVX1. Placed on Bipap 09/21. Pulmonary consulted today. Discussed with patient's niece who was on route and aware if espiration does not improve, possible intubation. Patient's troponin trending up with associated creatine increase. Repeat EKG shows NSR with atrial enlargement no ST changes. Discussed with nurse, patient is not making urine, patient has cui placed and will need to monitor output. Patient's medications converted to IV if possible. patient lost peripheral IV access, ordered for PICC line. Lasix held secondary to worsening hypernatremia. Will need to monitor urine output. Noted updated assessment/Plan. Assessment/Plan (1) Acute Renal Failure and Electrolyte Imbalance Assessment & Plan: * Nephrology Dr. Chowdhury/Landry is following-->help appreciated * Recommend for hypotonic fluids * Lasix held given worsening hypernatremia * Order for cui and monitor output 09/20 * Given fluid challenge 09/20-->will need to monitor urine output (2) Grade I Diastolic Heart Failure * Cardiology: Dr Dunbar is following * Echocardiogram 09/10/17 showed EF of 58% with hypokinetic anterior and apical septum and Grade I Abnormal Relaxation Patter. Moderate Tricuspid regurgitation and moderate to severe pulmonary HTN * Elevated ProBNP upon admission * Chest X Ray 09/13/17 showed increased pulmonary vascular congestion * Chest X Ray 09/14/17 showed decreased right side infiltrate and limited left perihilar infiltrate remaining * Chest X Ray 09/16/17 showed resolution of right upper lobe opacity, and there is questionable opacity medial right lung base * Chest xray PA and Lateral 09/1909/20/17: interval development of right upper lobe and left lower lobe consolidation and small pleural effusion. Persistent mild cardiomegaly and mild pulmonary venous congestion * f/u intake and output * f/u daily weight (lost about 10lbs) (3) Acute Respiratory Failure * Likely secondary to the increased pulmonary vascular congestion from the blood transfusions on 09/12/17, Acute Renal Failure, and Diastolic Heart Failure * Patient intubated and placed on vent by ICU team 09/13/17 and was successfully extubated 09/16/17 * Echocardiogram 09/10/17 showed EF of 58% with hypokinetic anterior and apical septum and Grade I Abnormal Relaxation Patter. Moderate Tricuspid regurgitation and moderate to severe pulmonary HTN * Chest xray PA and Lateral 09/1909/20/17: interval development of right upper lobe and left lower lobe consolidation and small pleural effusion. Persistent mild cardiomegaly and mild pulmonary venous congestion * Patient's sputum grew Staph aureus - for which patient is 09/19 on Ancef 1 gram Q8H * Pulmonary (Dr. Blair) consult-->patient noted worsening acute respiratory distress, placed back on Bipap; confirmed code status with niece who was present at bedside (4) Staph Aureus Pneumonia * ID Dr. Smith is following * Leukocytosis resolved, afebrile * White count normalized * Fever of 100.7 on 09/15/17 and patient was started on Vancomycin secondary to Sputum Culture 09/13/17 shows preliminary Staph aureus. However, Chest X Ray 09/16/17 did not show any infiltrates and as the leukocytosis has resolved, ICU Team discontinued the Vancomycin 09/16/17. * Blood Culture 09/10/17 is Negative To Date * Urine Culture 09/10/17 showed multiple species therefore another Urine Culture ordered 09/13/17-->pending * Patient's sputum grew Staph aureus * IV Abx: Ancef 1 gram IV Q8H (active since 09/19/17) (5) NONSTEMI Assessment & Plan: * Cardiology Dr. Dunbar on board--> help appreciated- once patient is cleared by nephrology for potential cardiac catherization * Will need to coordinate with nephrology * Uptrending; repeat EKG does not show ST changes * On Aspirin 81mg PO daily * Crestor 2.5mg PO qHS (6) Diabetes 2 Assessment & Plan: * HgBa1c: 7.8 * Hypoglycemia protocol * Crestor 2.5mg PO qHS * Off metformin, glipizide on admission given acute renal failure * Levemir was adjusted: Levemir 12 units QAM and 12 units HS on 09/18/17 based upon 24 hours ISS requirement * Patient did not evening dose of Levemir given she had poor appetite * Aspart sliding scale Status: Chronic (7) Hypotension-->Improved Hypertension Assessment & Plan: * Off anti-hypertensives (Hydralazine, Metoprolol XL, Amlodipine, Losartan/HCTZ , Lasix, Imdur) because of hypotension upon admission * She is on Lasix and Aldactone as mentioned in Assessment and Plan #1 * Currently stable * Improved compared to on admission Status: Chronic (8) Anemia Assessment & Plan: * Heme/Onc Dr. Toña Lentz * retic count: 2.2 * Iron: 44 * TIBC: 220 * iron saturation: 20 * Ferritin: 31 * Ferrlicit 125 mg IV 1x/day through 09/22/17 * ProCrit 10,000 Units SC T-T-S * HgB dropped to 7.0 and 2 units PRBC transfused 09/12/17. HgB/Hct is currently stable. * Serum Immunofixation with faint band in IgG and Lambda likely reactive. Repeat Serum Immunofixation in 3 to 6 months as outpatient. * Stool Occult Blood 09/10/17 and 09/13/17 are negative Status: Chronic (9). Elevated LFTs * monitor LFTs * on low dose statin (10) Polypharmacy Assessment & Plan: * Held home medications on admission including PO diabetic medications. Status: Acute (11) Vertigo-->resolved Assessment & Plan: * CT Head: negative on admission * Patient has seen previously Dr. 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 * Patient normally walks with cane at home * F/U PT evaluation and treatment Status: Chronic (13) Prophylactic measure Assessment & Plan: * Protonix 40mg IV q daily * Heparin 5,000 Units SC Q12H * Tylenol 650 mg PO Q6H PRN Fever * Zofran 4 mg IV Q6H PRN N/V Status: Acute Milka Rogers [phone] who was at bedside and assisted in translation. Code status: Full. Disposition: Will need to monitor respiratory status. Patient needed Bipap this morning. patient has worsening renal function with hypernatremia, will need to monitor urine output.
[2017-09-20 07:23] LABS: TROPONIN I 3.78 ng/mL (0.00-0.120)
[2017-09-20 08:28] LABS: NEUTROPHIL 73 % (50-75); TOTAL CELLS COUNTED 100
[2017-09-20 09:33] LABS: DRAW SITE RRA
[2017-09-20] MEDS ORDERED: MethylPREDNISolone 40 mg Vial IVP ONE (09:45)
[2017-09-20] MEDS ORDERED: Albuterol-Ipratrop 3 mg / 0.5 (3 ml) UD INH ONE (09:45)
[2017-09-20] MEDS: Ferric Sodium Gluconat Complex 62.5 mg/5 ml Vial IVPB SCH (10:03)
[2017-09-20] MEDS ORDERED: Sodium Chloride 0.9% 500 ML IV ONE ×2 (10:35→10:45)
[2017-09-20] MEDS: Insulin Detemir 100 units/ml Vial (Levemir) SC SCH ×2 (10:40→21:51)
--- NOTE | 2017-09-20 11:11 | RAD ---
HISTORY: Shortness of breath COMPARISON: 09/19/2017. FINDINGS: LUNGS: The lungs are well inflated. There is interval development of consolidation in the right upper lobe. There is persistent pulmonary venous congestion. There is also interval development of left retrocardiac opacity. PLEURA: Small left pleural effusion, no pneumothorax apparent. CARDIOVASCULAR: Persistent mild cardiomegaly. OSSEOUS STRUCTURES: Within normal limits for the patient's age. VISUALIZED UPPER ABDOMEN: Normal. OTHER FINDINGS: None. IMPRESSION: 1. Interval development of right upper lobe and left lower lobe consolidation and small left pleural effusion. 2. Persistent mild cardiomegaly and mild pulmonary venous congestion.
[2017-09-20] MEDS: EPOETIN ALFA 10,000 UNIT/ML ML SC SCH (11:12)
--- NOTE | 2017-09-20 11:52 | CP.PCM.PN ---
Subjective - Date & Time of Evaluation Date of Evaluation: 09/20/17 Time of Evaluation: 11:49 - Subjective Subjective: seen and examined discussed w/ family at bedside back on bipap, respiratory distress, hypercapneic this am anuric since this am. uop 500cc yesterday. no cui rise in creatinine noted troponin elevated cxr w/ b/l consolidation Objective - Vital Signs/Intake and Output Vital Signs (last 24 hours): Temp Pulse Resp BP Pulse Ox 97.5 F L 93 H 21 148/55 L 94 L 09/20/17 04:00 09/20/17 04:00 09/20/17 04:00 09/20/17 04:00 09/20/17 04:00 Intake and Output: 09/20/17 09/20/17 06:59 18:59 Intake Total 290 Output Total 1 Balance 289 - Medications Medications: Current Medications Albuterol/Ipratropium (Duoneb 3 Mg/0.5 Mg (3 Ml) Ud) 3 ml INH RQ4 [facility] Aspirin (Ecotrin) 81 mg PO DAILY [facility] Last Admin: 09/20/17 10:39 Dose: Not Given Dextrose (Dextrose 50% Inj) 0 ml IV STAT PRN; Protocol PRN Reason: Hypoglycemia Protocol Dextrose (Glutose 15) 0 gm PO ONCE PRN; Protocol PRN Reason: Hypoglycemia Protocol Epoetin Sarath (Procrit) 10,000 unit SC TTS [facility] Last Admin: 09/20/17 11:12 Dose: 10,000 unit Ferric Sodium Gluconate Complex (Ferrlecit) 125 mg IVPB DAILY [facility] Stop: 09/22/17 11:31 Last Admin: 09/20/17 10:03 Dose: 125 mg Furosemide (Lasix) 20 mg IVP BID [facility] Glucagon (Glucagen Diagnostic Kit) 0 mg IM STAT PRN; Protocol PRN Reason: Hypoglycemia Protocol Heparin Sodium (Porcine) (Heparin) 5,000 units SC Q12 [facility] Last Admin: 09/20/17 10:03 Dose: 5,000 units Dextrose (Dextrose 5% In Water 1000 Ml) 1,000 mls @ 0 mls/hr IV .Q0M PRN; Protocol; Per Protocol PRN Reason: Hypoglycemia Protocol Cefazolin Sodium 500 mg/ (Dextrose) 50 mls @ 100 mls/hr IVPB Q8H [facility] Last Admin: 09/20/17 08:34 Dose: 100 mls/hr Insulin Aspart (Novolog) 0 unit SC Q6 [facility] PRN Reason: Protocol Last Admin: 09/20/17 05:59 Dose: 3 unit Insulin Detemir (Levemir) 12 unit SC HS [facility] Last Admin: 09/19/17 21:12 Dose: Not Given Insulin Detemir (Levemir) 12 unit SC QAM [facility] Last Admin: 09/20/17 10:40 Dose: Not Given Ondansetron HCl (Zofran Inj) 4 mg IVP Q6 PRN PRN Reason: Nausea/Vomiting Last Admin: 09/13/17 11:01 Dose: 4 mg Pantoprazole Sodium (Protonix Inj) 40 mg IVP DAILY [facility] Last Admin: 09/20/17 10:03 Dose: 40 mg Rosuvastatin Calcium (Crestor) 2.5 mg PO [facility] Last Admin: 09/19/17 21:12 Dose: 2.5 mg Spironolactone (Aldactone) 50 mg PO DAILY [facility] Last Admin: 09/20/17 10:39 Dose: Not Given - Labs Labs: 09/20/17 06:37 09/20/17 06:37 PT 10.3 SECONDS (9.7-12.2) 09/10/17 13:52 INR 0.9 09/10/17 13:52 APTT 34 SECONDS (21-34) 09/10/17 13:52 - Constitutional Appears: In Acute Distress, Chronically Ill - Head Exam Head Exam: NORMAL INSPECTION - Eye Exam Eye Exam: Normal appearance Pupil Exam: PERRL - ENT Exam Additional comments: bipap mask - Neck Exam Neck Exam: Normal Inspection - Respiratory Exam Additional comments: decreased breath sounds bases b/l crackles - Cardiovascular Exam Cardiovascular Exam: REGULAR RHYTHM, RRR - GI/Abdominal Exam GI & Abdominal Exam: Distended, Soft - Extremities Exam Extremities Exam: Normal Inspection - Neurological Exam Neurological Exam: Alert, Awake - Skin Skin Exam: Warm Assessment and Plan (1) BERYL (acute kidney injury) Status: Acute (2) CHF (congestive heart failure) Status: Acute (3) Elevated troponin I level Status: Acute (4) Anemia Status: Chronic (5) Diabetes Status: Chronic - Assessment and Plan (Free Text) Assessment: cui to be placed maintain lasix hold spironolactone recommend hypotonic fluids 1/2NS for hypernatremia since pt unable to take po antibiotics for pneumonia coverage per icu team
[2017-09-20 13:39] LABS: ABG MECHANICAL RATE 14; ARTERIAL BLOOD GAS MODE BiPAP; ARTERIAL BLOOD HGB O2 SAT 90.7 % (95.0-98.0); CARBOXYHEMOGLOBIN 0.9 % (0.5-1.5); DRAW SITE RBA; METHEMOGLOBIN 0.4 % (0.0-3.0)
--- NOTE | 2017-09-20 14:59 | CP.PCM.CON ---
History of Present Illness - History of Present Illness History of Present Illness: Reason for consultation: Acute Respiratory Distress, Pulmonary hypertension 81 y/o F with a PMHx of HTN, Diabetes, hyperlipidemia. Patient has been experiencing increased shortness of breath. Chest X-ray 09/20 - interval development of right upper lobe and left lower lobe consolidation with small left pleural effusion. Patient seen and examined at bedside. Patient in no acute distress. Patient sleeping and on BiPAP. Past Patient History - Infectious Disease Hx of Infectious Diseases: None - Past Medical History & Family History Past Medical History?: Yes - Past Social History Smoking Status: Never Smoked - CARDIAC Hx Hypercholesterolemia: Yes Hx Hypertension: Yes - PULMONARY Hx Respiratory Disorders: No - HEENT Hx HEENT Problems: No - RENAL Hx Chronic Kidney Disease: No - ENDOCRINE/METABOLIC Hx Diabetes Mellitus Type 2: Yes - HEMATOLOGICAL/ONCOLOGICAL Hx Anemia: Yes - INTEGUMENTARY Hx Dermatological Problems: No - MUSCULOSKELETAL/RHEUMATOLOGICAL Hx Arthritis: Yes - GASTROINTESTINAL Hx Gastrointestinal Disorders: No - GENITOURINARY/GYNECOLOGICAL Hx Genitourinary Disorders: No - PSYCHIATRIC Hx Psychophysiologic Disorder: No Hx Substance Use: No - SURGICAL HISTORY Hx Surgeries: Yes Hx Orthopedic Surgery: Yes (LEFT KNEE) Other/Comment: Right leg - ANESTHESIA Hx Anesthesia: Yes Hx Anesthesia Reactions: No Meds Allergies/Adverse Reactions: Allergies Allergy/AdvReac Type Severity Reaction Status Date / Time No Known Allergies Allergy Verified 09/10/17 13:16 - Medications Medications: Current Medications Albuterol/Ipratropium (Duoneb 3 Mg/0.5 Mg (3 Ml) Ud) 3 ml INH RQ4 [facility] Last Admin: 09/20/17 14:19 Dose: 3 ml Aspirin (Ecotrin) 81 mg PO DAILY [facility] Last Admin: 09/20/17 10:39 Dose: Not Given Dextrose (Dextrose 50% Inj) 0 ml IV STAT PRN; Protocol PRN Reason: Hypoglycemia Protocol Dextrose (Glutose 15) 0 gm PO ONCE PRN; Protocol PRN Reason: Hypoglycemia Protocol Epoetin Sarath (Procrit) 10,000 unit SC TTS [facility] Last Admin: 09/20/17 11:12 Dose: 10,000 unit Ferric Sodium Gluconate Complex (Ferrlecit) 125 mg IVPB DAILY [facility] Stop: 09/22/17 11:31 Last Admin: 09/20/17 10:03 Dose: 125 mg Furosemide (Lasix) 20 mg IVP BID [facility] Last Admin: 09/20/17 13:06 Dose: Not Given Glucagon (Glucagen Diagnostic Kit) 0 mg IM STAT PRN; Protocol PRN Reason: Hypoglycemia Protocol Heparin Sodium (Porcine) (Heparin) 5,000 units SC Q12 [facility] Last Admin: 09/20/17 10:03 Dose: 5,000 units Dextrose (Dextrose 5% In Water 1000 Ml) 1,000 mls @ 0 mls/hr IV .Q0M PRN; Protocol; Per Protocol PRN Reason: Hypoglycemia Protocol Cefazolin Sodium 500 mg/ (Dextrose) 50 mls @ 100 mls/hr IVPB Q8H [facility] Last Admin: 09/20/17 08:34 Dose: 100 mls/hr Insulin Aspart (Novolog) 0 unit SC Q6 [facility] PRN Reason: Protocol Last Admin: 09/20/17 12:54 Dose: Not Given Insulin Detemir (Levemir) 12 unit SC HS [facility] Last Admin: 09/19/17 21:12 Dose: Not Given Insulin Detemir (Levemir) 12 unit SC QAM [facility] Last Admin: 09/20/17 10:40 Dose: Not Given Ondansetron HCl (Zofran Inj) 4 mg IVP Q6 PRN PRN Reason: Nausea/Vomiting Last Admin: 09/13/17 11:01 Dose: 4 mg Pantoprazole Sodium (Protonix Inj) 40 mg IVP DAILY [facility] Last Admin: 09/20/17 10:03 Dose: 40 mg Rosuvastatin Calcium (Crestor) 2.5 mg PO HS [facility] Last Admin: 09/19/17 21:12 Dose: 2.5 mg Results - Vital Signs Recent Vital Signs: Last Vital Signs Temp 97.5 F L 09/20/17 04:00 Pulse 93 H 09/20/17 04:00 Resp 21 09/20/17 04:00 BP 148/55 L 09/20/17 04:00 Pulse Ox 94 L 09/20/17 04:00 - Labs Result Diagrams: 09/20/17 06:37 09/20/17 06:37 Labs: Laboratory Results - last 24 hr 09/19/17 09/19/17 09/20/17 17:03 23:33 05:55 WBC RBC Hgb Hct MCV MCH MCHC RDW Plt Count MPV Neut % (Auto) Lymph % (Auto) [place] % (Auto) Eos % (Auto) Baso % (Auto) Neut # Lymph # [place] # Eos # Baso # Neutrophils % (Manual) Band Neutrophils % Lymphocytes % (Manual) Monocytes % (Manual) Platelet Estimate Polychromasia Hypochromasia (manual) Anisocytosis (manual) Microcytosis (manual) Target Cells Tear Drop Cells Ovalocytes Schistocytes Puncture Site pCO2 pO2 HCO3 ABG pH ABG Total CO2 ABG O2 Saturation ABG Base Excess ABG Hemoglobin ABG Carboxyhemoglobin POC ABG HHb (Measured) ABG Methemoglobin Guy Test ABG Potassium A-a O2 Difference Respiratory Index Hgb O2 Saturation Glucose Lactate Liter Flow Vent Mode Mechanical Rate FiO2 Inspiratory BiPAP Expiratory BiPAP Sodium Potassium Chloride Carbon Dioxide Anion Gap BUN Creatinine Est GFR ( Amer) Est GFR (Non-Af Amer) POC Glucose (mg/dL) 363 H 308 H 283 H Random Glucose Calcium Phosphorus Magnesium Total Bilirubin AST ALT Alkaline Phosphatase Total Creatine Kinase CK-MB (Mass) Troponin I Total Protein Albumin Globulin Albumin/Globulin Ratio Procalcitonin Arterial Blood Potassium 09/20/17 09/20/17 09/20/17 06:37 06:37 06:37 WBC 9.4 RBC 4.40 Hgb 10.6 L Hct 34.6 MCV 78.6 L MCH 24.0 L MCHC 30.5 L RDW 20.0 H Plt Count 315 MPV 9.3 Neut % (Auto) 81.4 H Lymph % (Auto) 5.3 L [place] % (Auto) 13.0 H Eos % (Auto) 0.0 Baso % (Auto) 0.3 Neut # 7.7 H Lymph # 0.5 L [place] # 1.2 H Eos # 0.0 Baso # 0.0 Neutrophils % (Manual) 73 Band Neutrophils % 1 Lymphocytes % (Manual) 16 L Monocytes % (Manual) 10 Platelet Estimate Normal Polychromasia Slight Hypochromasia (manual) Moderate Anisocytosis (manual) Moderate Microcytosis (manual) Slight Target Cells Slight Tear Drop Cells Slight Ovalocytes Slight Schistocytes Slight Puncture Site pCO2 pO2 HCO3 ABG pH ABG Total CO2 ABG O2 Saturation ABG Base Excess ABG Hemoglobin ABG Carboxyhemoglobin POC ABG HHb (Measured) ABG Methemoglobin Guy Test ABG Potassium A-a O2 Difference Respiratory Index Hgb O2 Saturation Glucose Lactate Liter Flow Vent Mode Mechanical Rate FiO2 Inspiratory BiPAP Expiratory BiPAP Sodium 152 H Potassium 4.1 Chloride 111 H Carbon Dioxide 30 Anion Gap 16 BUN 66 H Creatinine 2.0 H Est GFR ( Amer) 29 Est GFR (Non-Af Amer) 24 POC Glucose (mg/dL) Random Glucose 281 H Calcium 8.6 Phosphorus 5.3 H Magnesium 2.2 Total Bilirubin 0.5 AST 68 H ALT 74 H D Alkaline Phosphatase 70 Total Creatine Kinase 203 H CK-MB (Mass) 7.03 H Troponin I 3.7800 H* Total Protein 7.2 Albumin 3.2 L Globulin 3.9 Albumin/Globulin Ratio 0.8 L Procalcitonin 0.20 Arterial Blood Potassium 09/20/17 09/20/17 09/20/17 07:44 09:30 11:32 WBC RBC Hgb Hct MCV MCH MCHC RDW Plt Count MPV Neut % (Auto) Lymph % (Auto) [place] % (Auto) Eos % (Auto) Baso % (Auto) Neut # Lymph # [place] # Eos # Baso # Neutrophils % (Manual) Band Neutrophils % Lymphocytes % (Manual) Monocytes % (Manual) Platelet Estimate Polychromasia Hypochromasia (manual) Anisocytosis (manual) Microcytosis (manual) Target Cells Tear Drop Cells Ovalocytes Schistocytes Puncture Site Rra pCO2 60 H pO2 63 L HCO3 24.2 ABG pH 7.27 L ABG Total CO2 29.4 H ABG O2 Saturation 93.8 L ABG Base Excess -0.6 ABG Hemoglobin ABG Carboxyhemoglobin POC ABG HHb (Measured) ABG Methemoglobin Guy Test Na ABG Potassium 4.0 A-a O2 Difference 126.0 Respiratory Index 2.0 Hgb O2 Saturation Glucose 230 H Lactate 1.6 Liter Flow 4.0 Vent Mode Mechanical Rate FiO2 37.0 Inspiratory BiPAP Expiratory BiPAP Sodium 152.0 H Potassium Chloride 117.0 H Carbon Dioxide Anion Gap BUN Creatinine Est GFR ( Amer) Est GFR (Non-Af Amer) POC Glucose (mg/dL) 246 H 306 H Random Glucose Calcium Phosphorus Magnesium Total Bilirubin AST ALT Alkaline Phosphatase Total Creatine Kinase CK-MB (Mass) Troponin I Total Protein Albumin Globulin Albumin/Globulin Ratio Procalcitonin Arterial Blood Potassium 4.0 09/20/17 13:35 WBC RBC Hgb Hct MCV MCH MCHC RDW Plt Count MPV Neut % (Auto) Lymph % (Auto) [place] % (Auto) Eos % (Auto) Baso % (Auto) Neut # Lymph # [place] # Eos # Baso # Neutrophils % (Manual) Band Neutrophils % Lymphocytes % (Manual) Monocytes % (Manual) Platelet Estimate Polychromasia Hypochromasia (manual) Anisocytosis (manual) Microcytosis (manual) Target Cells Tear Drop Cells Ovalocytes Schistocytes Puncture Site Rba pCO2 37 pO2 52 L HCO3 21.1 ABG pH 7.35 ABG Total CO2 21.5 L ABG O2 Saturation 91.9 L ABG Base Excess -4.6 L ABG Hemoglobin 14.4 ABG Carboxyhemoglobin 0.9 POC ABG HHb (Measured) 8.0 H ABG Methemoglobin 0.4 Guy Test Na ABG Potassium A-a O2 Difference 151.0 Respiratory Index 2.9 Hgb O2 Saturation 90.7 L Glucose Lactate Liter Flow Vent Mode Bipap Mechanical Rate 14 FiO2 35.0 Inspiratory BiPAP 12 Expiratory BiPAP 6 Sodium Potassium Chloride Carbon Dioxide Anion Gap BUN Creatinine Est GFR ( Amer) Est GFR (Non-Af Amer) POC Glucose (mg/dL) Random Glucose Calcium Phosphorus Magnesium Total Bilirubin AST ALT Alkaline Phosphatase Total Creatine Kinase CK-MB (Mass) Troponin I Total Protein Albumin Globulin Albumin/Globulin Ratio Procalcitonin Arterial Blood Potassium Assessment & Plan (1) Hypercapnic respiratory failure Status: Acute Comment: Continue BiPAP and follow-up ABG. Nebulizer treatment. Steroids. Gentle hydration. hold Lasix (2) CKD (chronic kidney disease) stage 4, GFR 15-29 ml/min Status: Acute
--- NOTE | 2017-09-20 18:35 | CP.PCM.PN ---
Subjective - Date & Time of Evaluation Date of Evaluation: 09/20/17 Time of Evaluation: 16:00 - Subjective Subjective: On bipap, family at bedside Objective - Vital Signs/Intake and Output Vital Signs (last 24 hours): Temp Pulse Resp BP Pulse Ox 98.3 F 107 H 23 133/51 L 94 L 09/20/17 12:00 09/20/17 12:00 09/20/17 12:00 09/20/17 12:00 09/20/17 04:00 Intake and Output: 09/20/17 09/20/17 06:59 18:59 Intake Total 290 500 Output Total 1 25 Balance 289 475 - Medications Medications: Current Medications Albuterol/Ipratropium (Duoneb 3 Mg/0.5 Mg (3 Ml) Ud) 3 ml INH RQ4 [facility] Last Admin: 09/20/17 14:19 Dose: 3 ml Aspirin (Ecotrin) 81 mg PO DAILY [facility] Last Admin: 09/20/17 10:39 Dose: Not Given Dextrose (Dextrose 50% Inj) 0 ml IV STAT PRN; Protocol PRN Reason: Hypoglycemia Protocol Dextrose (Glutose 15) 0 gm PO ONCE PRN; Protocol PRN Reason: Hypoglycemia Protocol Epoetin Sarath (Procrit) 10,000 unit SC TTS [facility] Last Admin: 09/20/17 11:12 Dose: 10,000 unit Ferric Sodium Gluconate Complex (Ferrlecit) 125 mg IVPB DAILY [facility] Stop: 09/22/17 11:31 Last Admin: 09/20/17 10:03 Dose: 125 mg Furosemide (Lasix) 20 mg IVP BID [facility] Last Admin: 09/20/17 13:06 Dose: Not Given Glucagon (Glucagen Diagnostic Kit) 0 mg IM STAT PRN; Protocol PRN Reason: Hypoglycemia Protocol Heparin Sodium (Porcine) (Heparin) 5,000 units SC Q8 [facility] Dextrose (Dextrose 5% In Water 1000 Ml) 1,000 mls @ 0 mls/hr IV .Q0M PRN; Protocol; Per Protocol PRN Reason: Hypoglycemia Protocol Cefazolin Sodium 500 mg/ (Dextrose) 50 mls @ 100 mls/hr IVPB Q8H [facility] Last Admin: 09/20/17 17:53 Dose: 100 mls/hr Insulin Aspart (Novolog) 0 unit SC Q6 [facility] PRN Reason: Protocol Last Admin: 09/20/17 17:54 Dose: 1 unit Insulin Detemir (Levemir) 12 unit SC HS [facility] Last Admin: 09/19/17 21:12 Dose: Not Given Insulin Detemir (Levemir) 12 unit SC QAM [facility] Last Admin: 09/20/17 10:40 Dose: Not Given Ondansetron HCl (Zofran Inj) 4 mg IVP Q6 PRN PRN Reason: Nausea/Vomiting Last Admin: 09/13/17 11:01 Dose: 4 mg Pantoprazole Sodium (Protonix Inj) 40 mg IVP DAILY [facility] Last Admin: 09/20/17 10:03 Dose: 40 mg Rosuvastatin Calcium (Crestor) 2.5 mg PO HS [facility] Last Admin: 09/19/17 21:12 Dose: 2.5 mg - Labs Labs: 09/20/17 06:37 09/20/17 06:37 PT 10.3 SECONDS (9.7-12.2) 09/10/17 13:52 INR 0.9 09/10/17 13:52 APTT 34 SECONDS (21-34) 09/10/17 13:52 - Head Exam Head Exam: ATRAUMATIC - Eye Exam Eye Exam: Normal appearance - ENT Exam ENT Exam: Mucous Membranes Dry - Respiratory Exam Respiratory Exam: Respiratory Distress - GI/Abdominal Exam GI & Abdominal Exam: Normal Bowel Sounds Assessment and Plan (1) Anemia Assessment & Plan: iron deficiency on IV 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
[2017-09-20 18:49] LABS: RBC URINE 279 /hpf (0-3); URINE BACTERIA MOD (<OCC); URINE BILIRUBIN NEGATIVE (NEGATIVE); URINE BLOOD 3+ (NEGATIVE); URINE COLOR Yellow (YELLOW); URINE GLUCOSE (UA) 1+ mg/dL (Normal); URINE KETONE TRACE mg/dL (NEGATIVE); URINE LEUKOCYTE ESTERASE 3+ Leu/uL (Negative); URINE PROTEIN 2+ mg/dL (NEGATIVE); URINE UROBILINOGEN NORMAL mg/dL (0.2-1.0); WBC CLUMPS MANY /hpf; WBC URINE 312 /hpf (0-5)
--- NOTE | 2017-09-20 19:57 | PN ---
DATE: SUBJECTIVE: Patient is currently on BiPAP. She denies any substernal chest pain. No reported ventricular arrhythmia. PHYSICAL EXAMINATION: VITAL SIGNS: Blood pressure 103/55, heart rate 96, temperature 97.5, respirations 21. HEENT: Pale conjunctivae. CHEST: Bilateral rhonchi. HEART: S1, S2, regular. EXTREMITIES: No edema. LABORATORY DATA: Today's SMA-7: Sodium 152, potassium 4.1, chloride 111, CO2 of 30, glucose 281, BUN 66, creatinine 2.0, troponin is 3.7. Hemoglobin and hematocrit 10.6 and 34.6, white count and platelet count are within normal limits. Today's chest x-ray report, interval development of right upper lobe and left lower lobe consolidation and small left pleural effusion. Persistent mild cardiomegaly and mild pulmonary venous congestion. ASSESSMENT: 1. Consider underlying pneumonia. 2. Advanced renal insufficiency. 3. Non ST-elevation myocardial infarction. 4. Mild anemia. RECOMMENDATIONS: Continue current IV cefazolin. The case was discussed with telecommunications line mechanic, Dr. Blair. Diuretics are on hold. Resume aspirin 81 mg once a day, increase heparin to 5000 units q. 8 hours. The patient is not a suitable candidate at this time for cardiac cath; however, I will further discuss the plan with Dr. Chowdhury, the support dba. Elvis Dunbar MD
[2017-09-20] MEDS: Rosuvastatin Calcium 2.5 mg Tab PO SCH (23:30)
--- NOTE | 2017-09-20 23:52 | CARD ---
APPROVED REPORT EKG Measurement Heart [id number] CT [id number] <Conclusion> Sinus rhythm with 1st degree AV block Anteroseptal infarct, age undetermined Abnormal ECG
[2017-09-21] MEDS: (Novolog) Insulin Aspart, Recombinant 100 u/ml 10 ml vial SC SCH ×4 (00:35→18:59)
[2017-09-21] MEDS: Albuterol-Ipratrop 3 mg / 0.5 (3 ml) UD INH SCH ×5 (03:01→19:38)
[2017-09-21 06:26] LABS: BASO % 0.1 % (0.0-2.0); EOS % 0.1 % (0.0-4.0); HEMATOCRIT 30.7 % (34.0-47.0); LYMPH # 0.7 K/uL (1.0-4.3); LYMPH % 5.8 % (20.0-40.0); MEAN CELL VOLUME 78.1 fL (81.0-99.0); MEAN CORPUSCULAR HEMOGLOBIN 23.9 pg (27.0-31.0); MEAN CORPUSCULAR HGB CONC 30.6 g/dL (33.0-37.0); MEAN PLATELET VOLUME 9.1 fL (7.2-11.7); MONO # 1.8 K/uL (0.0-0.8); MONO % 14.9 % (0.0-10.0); NRBC % 9.5 % (0.0-2.0); PLATELET COUNT 301 K/uL (130-400); RED CELL DISTRIBUTION WIDTH 19.9 % (11.5-14.5); WHITE BLOOD COUNT 12.1 K/uL (4.8-10.8)
[2017-09-21 06:53] LABS: ALB/GLOB RATIO 0.8 (1.0-2.1); BILIRUBIN,TOTAL 0.4 mg/dL (0.2-1.3); CALCIUM 8.5 mg/dl (8.6-10.4); MAGNESIUM 2.2 mg/dL (1.6-2.3); PHOSPHOROUS 4.3 mg/dL (2.5-4.5); POTASSIUM 3.2 mmol/L (3.6-5.2); TOTAL PROTEIN 6.8 g/dL (6.3-8.3)
[2017-09-21] MEDS: Insulin Detemir 100 units/ml Vial (Levemir) SC SCH (09:12)
[2017-09-21] MEDS ORDERED: Sodium Chloride 0.45% 1,000 ML IV SCH (09:15)
[2017-09-21] MEDS: Ferric Sodium Gluconat Complex 62.5 mg/5 ml Vial IVPB SCH (09:46)
[2017-09-21 09:57] LABS: METAMYELOCYTE 1 % (0-0); MYELOCYTE 1 % (0-0); NEUTROPHIL 66 % (50-75); NUCLEATED RED BLOOD CELL 12 % (0-0); TOTAL CELLS COUNTED 100
--- NOTE | 2017-09-21 10:30 | CP.PCM.PN ---
Addendum entered and electronically signed by Tiffanie Cedeno DO 09/21/17 14:49 : Patient reintubated 2/2 respiratory distress. Transferred back to ICU. Original Note: <Tiffanie Cedeno - Last Filed: 09/21/17 10:25> Subjective - Date & Time of Evaluation Date of Evaluation: 09/21/17 Time of Evaluation: 10:00 - Subjective Subjective: Medicine Note for Dr. Weaver's Service Patient was seen and examined at bedside. Patient remains on BiPAP. ABG improved. PICC line to be placed today by PICC line nurse due to poor venous access also for possible skilled nursing treatment of pneumonia and UTI. Unattainable ROS due to BiPAP and patient's confusion. Objective - Vital Signs/Intake and Output Vital Signs (last 24 hours): Temp Pulse Resp BP Pulse Ox 97.5 F L 99 H 19 156/63 H 100 09/21/17 04:00 09/21/17 07:55 09/21/17 04:00 09/21/17 04:00 09/21/17 04:00 Intake and Output: 09/21/17 09/21/17 06:59 18:59 Intake Total 50 Output Total 150 Balance -100 - Medications Medications: Current Medications Albuterol/Ipratropium (Duoneb 3 Mg/0.5 Mg (3 Ml) Ud) 3 ml INH RQ4 [facility] Last Admin: 09/21/17 07:55 Dose: 3 ml Aspirin (Ecotrin) 81 mg PO DAILY [facility] Last Admin: 09/21/17 09:45 Dose: Not Given Dextrose (Dextrose 50% Inj) 0 ml IV STAT PRN; Protocol PRN Reason: Hypoglycemia Protocol Dextrose (Glutose 15) 0 gm PO ONCE PRN; Protocol PRN Reason: Hypoglycemia Protocol Epoetin Sarath (Procrit) 10,000 unit SC TTS [facility] Last Admin: 09/20/17 11:12 Dose: 10,000 unit Ferric Sodium Gluconate Complex (Ferrlecit) 125 mg IVPB DAILY [facility] Stop: 09/22/17 11:31 Last Admin: 09/21/17 09:46 Dose: 125 mg Furosemide (Lasix) 20 mg IVP BID [facility] Last Admin: 09/20/17 13:06 Dose: Not Given Glucagon (Glucagen Diagnostic Kit) 0 mg IM STAT PRN; Protocol PRN Reason: Hypoglycemia Protocol Heparin Sodium (Porcine) (Heparin) 5,000 units SC Q8 [facility] Last Admin: 09/21/17 05:33 Dose: 5,000 units Dextrose (Dextrose 5% In Water 1000 Ml) 1,000 mls @ 0 mls/hr IV .Q0M PRN; Protocol; Per Protocol PRN Reason: Hypoglycemia Protocol Cefazolin Sodium 500 mg/ (Dextrose) 50 mls @ 100 mls/hr IVPB Q8H [facility] Last Admin: 09/21/17 08:35 Dose: 100 mls/hr Sodium Chloride (Sodium Chloride 0.45%) 1,000 mls @ 45 mls/hr IV .[id number] [facility] Last Admin: 09/21/17 09:50 Dose: 45 mls/hr Insulin Aspart (Novolog) 0 unit SC Q6 [facility] PRN Reason: Protocol Last Admin: 09/21/17 05:29 Dose: Not Given Insulin Detemir (Levemir) 12 unit SC [facility] Last Admin: 09/20/17 21:51 Dose: 12 unit Insulin Detemir (Levemir) 12 unit SC QAM [facility] Last Admin: 09/21/17 09:12 Dose: Not Given Ondansetron HCl (Zofran Inj) 4 mg IVP Q6 PRN PRN Reason: Nausea/Vomiting Last Admin: 09/13/17 11:01 Dose: 4 mg Pantoprazole Sodium (Protonix Inj) 40 mg IVP DAILY [facility] Last Admin: 09/21/17 09:47 Dose: 40 mg Potassium Chloride (Potassium Chloride Oral Soln) 40 meq PO BID [facility] Stop: 09/22/17 10:01 Rosuvastatin Calcium (Crestor) 2.5 mg PO [facility] Last Admin: 09/20/17 23:30 Dose: Not Given - Labs Labs: 09/21/17 06:07 09/21/17 06:07 PT 10.3 SECONDS (9.7-12.2) 09/10/17 13:52 INR 0.9 09/10/17 13:52 APTT 34 SECONDS (21-34) 09/10/17 13:52 - Additional Findings Additional findings: - Constitutional Appears: No Acute Distress, Chronically Ill, toxic - Head Exam Head Exam: NORMAL INSPECTION, NORMOCEPHALIC - Eye Exam Eye Exam: EOMI, Normal appearance, PERRL Pupil Exam: NORMAL ACCOMODATION - ENT Exam ENT Exam: Mucous Membranes Dry - Respiratory Exam Respiratory Exam: Normal breathing pattern, BiPAP on, some rales noted BL Lower lung bases - Cardiovascular Exam Cardiovascular Exam: Tachycardia - GI/Abdominal Exam GI & Abdominal Exam: Soft, Normal Bowel Sounds. absent: Distended, Tenderness - Extremities Exam Extremities Exam: Normal Inspection - Neurological Exam Neurological Exam: Alert, Awake - Psychiatric Exam Psychiatric exam: Normal Affect, Normal Mood - Skin Skin Exam: Dry, Warm Assessment and Plan - Assessment and Plan (Free Text) Plan: (1) Acute Renal Failure and Electrolyte Imbalance Assessment & Plan: * Nephrology Dr. Chowdhury/Landry is following * Started 1/2 NS suggested by Nephrology - will continue to hold lasix. Patient was given 500 cc fluid challenge x 2, cui placed in. Will continue to monitor I & Os. Continue monitoring renal function. * Increased in BUN/CRE - likely due to increase in lasix, Lasix changed to 20mg IVP BID * Lasix increased to 40mg PO BID by nephrology, renal failure is improving. Will be restarted in liquid feedings now that patient passed swallow eval. Continue to replace potassium. As per nephrology - better to let BERYL resolve, as performing cardiac cath can put the patient back in renal failure. If cardiac cath will be peformed- patient will need to be adequetly hydrated * BUN/Cr worsened and patient and patient was trial of IV Lasix since 09/12/17. Cr is slowing improving and holding off on HD for now. IV Lasix changed to PO now at 40 mg 1x/day on 09/17/17 * Potassium Low at 3.2 likely secondary to Diamox (which has been discontinued 09/17/17) and Lasix. Patient is on Aldactone 50 mg PO 1x/day. Patient given total of 60 mEQ of KCl 09/17/17 and 40 mEQ on 09/18/17. (2) Grade I Diastolic Heart Failure 09/19 CXR PA&Lateral - Mild congestive change with probable small pleural effusions. No evidence of pulmonary edema. Patient placed on Bipap due to acute respiratory distress. Monitor Is & Os, daily weights (Lost about 10 lbs since admission) Echocardiogram 09/10/17 showed EF of 58% with hypokinetic anterior and apical septum and Grade I Abnormal Relaxation Patter. Moderate Tricuspid regurgitation and moderate to severe pulmonary HTN Elevated ProBNP upon admission Chest X Ray 09/13/17 showed increased pulmonary vascular congestion Chest X Ray 09/14/17 showed decreased right side infiltrate and limited left perihilar infiltrate remaining Chest X Ray 09/16/17 showed resolution of right upper lobe opacity, and there is questionable opacity medial right lung base (3) Acute Respiratory Failure Pulmonology consulted- Dr. Blair - help appreciated Patient placed on Bipap due to acute respiratory distress Likely secondary to the increased pulmonary vascular congestion from the blood transfusions on 09/12/17, Acute Renal Failure, and Diastolic Heart Failure Patient intubated and placed on vent by ICU team 09/13/17 and was successfully extubated 09/16/17 Sputum culture grew Staph aureus - for which patient is now on Ancef 1 gram Q8H - 09/19 (4) Leukocytosis ID Dr. Smith Became elevated after solumedrol dose x1 given yesterday Repeat UA - indicative of UTI, and UC - pending UC Ancef 1 gram Q8H - 09/19 Elevated at 11.9 09/18/17 Fever of 100.7 on 09/15/17 and patient was started on Vancomycin secondary to Sputum Culture 09/13/17 shows preliminary Staph aureus. However, Chest X Ray 09/16/17 did not show any infiltrates and as the leukocytosis has resolved, ICU Team discontinued the Vancomycin 09/16/17. Blood Culture 09/10/17 is Negative To Date Urine Culture 09/10/17 showed multiple species therefore another Urine Culture ordered 09/13/17 (5) Nonstemi Assessment & Plan: * Cardiology Dr. Dunbar on board--> help appreciated- once patient is cleared by nephrology. Will wait few days, before performing cardiac cath * Elevated Troponin: 0.6460--> 0.4850--> 0.5510 * On Aspirin 81mg PO daily * 09/20/17 Troponin 3.78 (6) Diabetes 2 Assessment & Plan: HgBa1c: 7.8 Hypoglycemia protocol Crestor 2.5mg PO qHS Off metformin, glipizide on admission given acute renal failure Levemir was adjusted: Levemir 12 units QAM and 12 units HS on 09/18/17 based upon 24 hours ISS requirement Aspart sliding scale Status: Chronic (7) Hypertension Assessment & Plan: Off anti-hypertensives (Hydralazine, Metoprolol XL, Amlodipine, Losartan/HCTZ, Lasix, Imdur) because of hypotension upon admission She is on Lasix and Aldactone as mentioned in Assessment and Plan #1 Currently stable Status: Chronic (8) Anemia Assessment & Plan: Heme/Onc Dr. Toña Lentz Stable retic count: 2.2 Iron: 44 TIBC: 220 iron saturation: 20 Ferritin: 31 Ferrlicit 125 mg IV 1x/day through 09/22/17 ProCrit 10,000 Units SC T-T-S HgB dropped to 7.0 and 2 units PRBC transfused 09/12/17. HgB/Hct is currently stable. Serum Immunofixation with faint band in IgG and Lambda likely reactive. Repeat Serum Immunofixation in 3 to 6 months as outpatient. Stool Occult Blood 09/10/17 and 09/13/17 are negative Status: Chronic (9). Elevated LFTs AST and ALT are declining (10) Polypharmacy Assessment & Plan: Held home medications on admission including PO diabetic medications. Status: Acute (11) Vertigo Assessment & Plan: CT Head: negative on admission Patient has seen previously Dr. 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 PT EVAL - recommends SILVIANO Status: Chronic (13) Prophylactic measure Assessment & Plan: Protonix 40mg IV q daily Heparin 5,000 Units SC Q8H Tylenol 650 mg PO Q6H PRN Fever Zofran 4 mg IV Q6H PRN N/V Status: Acute Milka Rogers [phone] Pao Weller DO, PGY-1 <Poly Weaver V - Last Filed: 09/21/17 18:29> Objective - Vital Signs/Intake and Output Vital Signs (last 24 hours): Temp Pulse Resp BP Pulse Ox 97.5 F L 99 H 19 156/63 H 100 09/21/17 04:00 09/21/17 12:35 09/21/17 04:00 09/21/17 04:00 09/21/17 04:00 Intake and Output: 09/21/17 09/21/17 06:59 18:59 Intake Total 50 8 Output Total 150 Balance -100 8 - Medications Medications: Current Medications Albuterol/Ipratropium (Duoneb 3 Mg/0.5 Mg (3 Ml) Ud) 3 ml INH RQ4 [facility] Last Admin: 09/21/17 15:49 Dose: 3 ml Aspirin (Ecotrin) 81 mg PO DAILY [facility] Last Admin: 09/21/17 09:45 Dose: Not Given Dextrose (Dextrose 50% Inj) 0 ml IV STAT PRN; Protocol PRN Reason: Hypoglycemia Protocol Dextrose (Glutose 15) 0 gm PO ONCE PRN; Protocol PRN Reason: Hypoglycemia Protocol Epoetin Sarath (Procrit) 10,000 unit SC TTS [facility] Last Admin: 09/20/17 11:12 Dose: 10,000 unit Ferric Sodium Gluconate Complex (Ferrlecit) 125 mg IVPB DAILY [facility] Stop: 09/22/17 11:31 Last Admin: 09/21/17 09:46 Dose: 125 mg Furosemide (Lasix) 20 mg IVP BID [facility] Last Admin: 09/20/17 13:06 Dose: Not Given Glucagon (Glucagen Diagnostic Kit) 0 mg IM STAT PRN; Protocol PRN Reason: Hypoglycemia Protocol Heparin Sodium (Porcine) (Heparin) 5,000 units SC Q8 [facility] Last Admin: 09/21/17 13:14 Dose: 5,000 units Dextrose (Dextrose 5% In Water 1000 Ml) 1,000 mls @ 0 mls/hr IV .Q0M PRN; Protocol; Per Protocol PRN Reason: Hypoglycemia Protocol Cefazolin Sodium 500 mg/ (Dextrose) 50 mls @ 100 mls/hr IVPB Q8H [facility] Last Admin: 09/21/17 17:09 Dose: 100 mls/hr Sodium Chloride (Sodium Chloride 0.45%) 1,000 mls @ 75 mls/hr IV .[id number] [facility] Last Admin: 09/21/17 13:11 Dose: 75 mls/hr Propofol (Diprivan) 1,000 mg in 100 mls @ 1.279 mls/hr IV .Q24H PRN; Protocol; 5 MCG/KG/MIN PRN Reason: TITRATE PER MD ORDER Last Titration: 09/21/17 15:20 Dose: 15 mcg/kg/min, 3.837 mls/hr Insulin Aspart (Novolog) 0 unit SC Q6 [facility] PRN Reason: Protocol Last Admin: 09/21/17 11:57 Dose: Not Given Ondansetron HCl (Zofran Inj) 4 mg IVP Q6 PRN PRN Reason: Nausea/Vomiting Last Admin: 09/13/17 11:01 Dose: 4 mg Pantoprazole Sodium (Protonix Inj) 40 mg IVP DAILY [facility] Last Admin: 09/21/17 09:47 Dose: 40 mg Potassium Chloride (Potassium Chloride Oral Soln) 40 meq PO BID [facility] Stop: 09/22/17 10:01 Last Admin: 09/21/17 17:09 Dose: 40 meq Rosuvastatin Calcium (Crestor) 2.5 mg PO HS [facility] Last Admin: 09/20/17 23:30 Dose: Not Given - Labs Labs: 09/21/17 06:07 09/21/17 06:07 PT 10.3 SECONDS (9.7-12.2) 09/10/17 13:52 INR 0.9 09/10/17 13:52 APTT 34 SECONDS (21-34) 09/10/17 13:52 Assessment and Plan (1) Acute renal failure Status: Acute (2) Non-STEMI (non-ST elevated myocardial infarction) Status: Acute (3) Diabetes Status: Chronic (4) Hypotension Status: Acute (5) Hypertension Status: Chronic (6) Anemia Status: Chronic (7) Elevated brain natriuretic peptide (BNP) level Status: Acute (8) Polypharmacy Status: Acute (9) Pneumonia Status: Suspected (10) Vertigo Status: Acute (11) Prophylactic measure Status: Acute Attending/Attestation - Attestation I have personally seen and examined this patient.: Yes I have fully participated in the care of the patient.: Yes I have reviewed all pertinent clinical information, including history, physical exam and plan: Yes Notes (Text): Patient seen, examined, and case discussed with day-time resident. Patient seen this morning on Bipap. Family not present during rounds. Patient was start on gentle IV hydration, 1/2 NS 45 cc/hr given hypernatremia per nephro suggestion Patient during the day worsening respiratory status prompting re-intubation. Patient is on IV abx for Staph Aureus pneumonia, has abnormal UA but urine culture shows no growth. Patient ordered for PICC line given poor IV access (had peripheral 20 gauge in the hand). Patient transferred back to the ICU care. Further management per ICU. Assessment/Plan (1) Acute Renal Failure and Electrolyte Imbalance Assessment & Plan: * Nephrology Dr. Chowdhury/Landry is following-->help appreciated * Recommend for hypotonic fluids * Lasix held given worsening hypernatremia * Order for cui and monitor output 09/20 * Given fluid challenge 09/20-->will need to monitor urine output * Dialysis catheter placed 09/21 (2) Grade I Diastolic Heart Failure * Cardiology: Dr Dunbar is following * Echocardiogram 09/10/17 showed EF of 58% with hypokinetic anterior and apical septum and Grade I Abnormal Relaxation Patter. Moderate Tricuspid regurgitation and moderate to severe pulmonary HTN * Elevated ProBNP upon admission * Chest X Ray 09/13/17 showed increased pulmonary vascular congestion * Chest X Ray 09/14/17 showed decreased right side infiltrate and limited left perihilar infiltrate remaining * Chest X Ray 09/16/17 showed resolution of right upper lobe opacity, and there is questionable opacity medial right lung base * Chest xray PA and Lateral 09/1909/20/17: interval development of right upper lobe and left lower lobe consolidation and small pleural effusion. Persistent mild cardiomegaly and mild pulmonary venous congestion * f/u intake and output * f/u daily weight (lost about 10lbs) (3) Acute Respiratory Failure * Likely secondary to the increased pulmonary vascular congestion from the blood transfusions on 09/12/17, Acute Renal Failure, and Diastolic Heart Failure * Patient intubated and placed on vent by ICU team 09/13/17 and was successfully extubated 09/16/17 * Echocardiogram 09/10/17 showed EF of 58% with hypokinetic anterior and apical septum and Grade I Abnormal Relaxation Patter. Moderate Tricuspid regurgitation and moderate to severe pulmonary HTN * Chest xray PA and Lateral 09/1909/20/17: interval development of right upper lobe and left lower lobe consolidation and small pleural effusion. Persistent mild cardiomegaly and mild pulmonary venous congestion * Patient's sputum grew Staph aureus - for which patient is 09/19 on Ancef 1 gram Q8H * Pulmonary (Dr. Blair) consult-->patient noted worsening acute respiratory distress, placed back on Bipap; confirmed code status with niece who was present at bedside * Patient needed to be re-intubated 09/21/17 given agonal breathing; transferred to ICU. (4) Staph Aureus Pneumonia * ID Dr. Mangia is following * Leukocytosis resolved, afebrile * White count normalized * Fever of 100.7 on 09/15/17 and patient was started on Vancomycin secondary to Sputum Culture 09/13/17 shows preliminary Staph aureus. However, Chest X Ray 09/16/17 did not show any infiltrates and as the leukocytosis has resolved, ICU Team discontinued the Vancomycin 09/16/17. * Blood Culture 09/10/17 is Negative To Date * Urine Culture 09/10/17 showed multiple species therefore another Urine Culture ordered 09/13/17-->pending * Patient's sputum grew Staph aureus * IV Abx: Ancef 1 gram IV Q8H (active since 09/19/17) (5) NONSTEMI Assessment & Plan: * Cardiology Dr. Dunbar on board--> help appreciated- once patient is cleared by nephrology for potential cardiac catherization * Will need to coordinate with nephrology * Uptrending; repeat EKG does not show ST changes * On Aspirin 81mg PO daily * Crestor 2.5mg PO qHS (6) Diabetes 2 Assessment & Plan: * HgBa1c: 7.8 * Hypoglycemia protocol * Crestor 2.5mg PO qHS * Off metformin, glipizide on admission given acute renal failure * Levemir was adjusted: Levemir 12 units QAM and 12 units HS on 09/18/17 based upon 24 hours ISS requirement * Patient did not receive Levemir since she was NPO 09/20 given change in respiration status required Bipap * Aspart sliding scale Status: Chronic (7) Hypotension--> History of Hypertension Assessment & Plan: * Off anti-hypertensives (Hydralazine, Metoprolol XL, Amlodipine, Losartan/HCTZ , Lasix, Imdur) because of hypotension upon admission * She is on Lasix and Aldactone as mentioned in Assessment and Plan #1 * Currently stable * Improved compared to on admission Status: Chronic (8) Anemia Assessment & Plan: * Heme/Onc Dr. Toña Lentz * retic count: 2.2 * Iron: 44 * TIBC: 220 * iron saturation: 20 * Ferritin: 31 * Ferrlicit 125 mg IV 1x/day through 09/22/17 * ProCrit 10,000 Units SC T-T-S * HgB dropped to 7.0 and 2 units PRBC transfused 09/12/17. HgB/Hct is currently stable. * Serum Immunofixation with faint band in IgG and Lambda likely reactive. Repeat Serum Immunofixation in 3 to 6 months as outpatient. * Stool Occult Blood 09/10/17 and 09/13/17 are negative Status: Chronic (9). Elevated LFTs * monitor LFTs * on low dose statin (10) Polypharmacy Assessment & Plan: * Held home medications on admission including PO diabetic medications. Status: Acute (11) Vertigo-->resolved Assessment & Plan: * CT Head: negative on admission * Patient has seen previously Dr. 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 * Patient normally walks with cane at home * F/U PT evaluation and treatment Status: Chronic (13) Prophylactic measure Assessment & Plan: * Protonix 40mg IV q daily * Heparin 5,000 Units SC Q12H * Tylenol 650 mg PO Q6H PRN Fever * Zofran 4 mg IV Q6H PRN N/V Status: Acute Milka Rogers [phone] who was at bedside and assisted in translation. Code status: Full. Disposition: Patient needed to be reintubated following agonal breathing in spite of Bipap. patient has worsening renal function with hypernatremia. Dialysis catheter to be placed by ICU. Patient under ICU care.
--- NOTE | 2017-09-21 10:46 | RAD ---
HISTORY: respiratory distress, pneumonia COMPARISON: 09/20/2017 FINDINGS: LUNGS: Increasing opacity in right upper lobe. Patchy opacity at right base now appreciated. No other infiltrate. PLEURA: Minimal blunting of costophrenic angles may reflect chronic pleural thickening or small pleural effusion. No pneumothorax. CARDIOVASCULAR: Normal heart size. Mild congestive change. OSSEOUS STRUCTURES: No significant abnormalities. VISUALIZED UPPER ABDOMEN: Normal. OTHER FINDINGS: None. IMPRESSION: Increasing right upper lobe opacity and new mild right basilar opacity. Questionable very small bilateral pleural effusion.
[2017-09-21] MEDS: Potassium Chloride 20 mEq/15 ml LIQ UD PO SCH ×2 (11:39→17:09)
[2017-09-21] MEDS: Sodium Chloride 0.45% 1,000 ML IV SCH (13:11)
[2017-09-21] MEDS ORDERED: Etomidate 20 mg/10ml Inj IV ONE (13:33)
[2017-09-21] MEDS: Propofol 10 mg/ml 1,000 MG/100 ML VIAL IV PRN (14:00)
--- NOTE | 2017-09-21 14:42 | CP.PCM.PN ---
Subjective - Date & Time of Evaluation Date of Evaluation: 09/21/17 Time of Evaluation: 14:40 - Subjective Subjective: being reintubated for respiratory distress unable to obtain ROS labs noted off diuretics Objective - Vital Signs/Intake and Output Vital Signs (last 24 hours): Temp Pulse Resp BP Pulse Ox 97.5 F L 99 H 19 156/63 H 100 09/21/17 04:00 09/21/17 12:35 09/21/17 04:00 09/21/17 04:00 09/21/17 04:00 Intake and Output: 09/21/17 09/21/17 06:59 18:59 Intake Total 50 Output Total 150 Balance -100 - Medications Medications: Current Medications Albuterol/Ipratropium (Duoneb 3 Mg/0.5 Mg (3 Ml) Ud) 3 ml INH RQ4 [facility] Last Admin: 09/21/17 07:55 Dose: 3 ml Aspirin (Ecotrin) 81 mg PO DAILY [facility] Last Admin: 09/21/17 09:45 Dose: Not Given Dextrose (Dextrose 50% Inj) 0 ml IV STAT PRN; Protocol PRN Reason: Hypoglycemia Protocol Dextrose (Glutose 15) 0 gm PO ONCE PRN; Protocol PRN Reason: Hypoglycemia Protocol Epoetin Sarath (Procrit) 10,000 unit SC TTS [facility] Last Admin: 09/20/17 11:12 Dose: 10,000 unit Ferric Sodium Gluconate Complex (Ferrlecit) 125 mg IVPB DAILY [facility] Stop: 09/22/17 11:31 Last Admin: 09/21/17 09:46 Dose: 125 mg Furosemide (Lasix) 20 mg IVP BID [facility] Last Admin: 09/20/17 13:06 Dose: Not Given Glucagon (Glucagen Diagnostic Kit) 0 mg IM STAT PRN; Protocol PRN Reason: Hypoglycemia Protocol Heparin Sodium (Porcine) (Heparin) 5,000 units SC Q8 [facility] Last Admin: 09/21/17 13:14 Dose: 5,000 units Dextrose (Dextrose 5% In Water 1000 Ml) 1,000 mls @ 0 mls/hr IV .Q0M PRN; Protocol; Per Protocol PRN Reason: Hypoglycemia Protocol Cefazolin Sodium 500 mg/ (Dextrose) 50 mls @ 100 mls/hr IVPB Q8H [facility] Last Admin: 09/21/17 08:35 Dose: 100 mls/hr Sodium Chloride (Sodium Chloride 0.45%) 1,000 mls @ 75 mls/hr IV .[id number] [facility] Last Admin: 09/21/17 13:11 Dose: 75 mls/hr Propofol (Diprivan) 1,000 mg in 100 mls @ 1.279 mls/hr IV .Q24H PRN; Protocol; 5 MCG/KG/MIN PRN Reason: TITRATE PER MD ORDER Last Admin: 09/21/17 14:00 Dose: 5 mcg/kg/min, 1.279 mls/hr Insulin Aspart (Novolog) 0 unit SC Q6 [facility] PRN Reason: Protocol Last Admin: 09/21/17 11:57 Dose: Not Given Insulin Detemir (Levemir) 12 unit SC HS [facility] Last Admin: 09/20/17 21:51 Dose: 12 unit Insulin Detemir (Levemir) 12 unit SC QAM [facility] Last Admin: 09/21/17 09:12 Dose: Not Given Ondansetron HCl (Zofran Inj) 4 mg IVP Q6 PRN PRN Reason: Nausea/Vomiting Last Admin: 09/13/17 11:01 Dose: 4 mg Pantoprazole Sodium (Protonix Inj) 40 mg IVP DAILY [facility] Last Admin: 09/21/17 09:47 Dose: 40 mg Potassium Chloride (Potassium Chloride Oral Soln) 40 meq PO BID [facility] Stop: 09/22/17 10:01 Last Admin: 09/21/17 11:39 Dose: Not Given Rosuvastatin Calcium (Crestor) 2.5 mg PO [facility] Last Admin: 09/20/17 23:30 Dose: Not Given - Labs Labs: 09/21/17 06:07 09/21/17 06:07 PT 10.3 SECONDS (9.7-12.2) 09/10/17 13:52 INR 0.9 09/10/17 13:52 APTT 34 SECONDS (21-34) 09/10/17 13:52 - Constitutional Appears: Chronically Ill - ENT Exam ENT Exam: Mucous Membranes Dry - Respiratory Exam Respiratory Exam: Decreased Breath Sounds, Rhonchi - Cardiovascular Exam Cardiovascular Exam: REGULAR RHYTHM. absent: Rubs - GI/Abdominal Exam GI & Abdominal Exam: Normal Bowel Sounds. absent: Tenderness - Neurological Exam Neurological Exam: absent: Alert, Oriented x3 Assessment and Plan - Assessment and Plan (Free Text) Assessment: melly, respiratory failure hypernatremia continue gentle hypotonic ivf for now hold on diuresis for now trend labs pulmonary toilet
--- NOTE | 2017-09-21 14:49 | RAD ---
HISTORY: PICC Line Insertion COMPARISON: 09/21/2017 at 9:32 a.m. FINDINGS: LUNGS: There is extensive multifocal right-sided pulmonary opacity. No left-sided pulmonary opacity is appreciated. PLEURA: Small left pleural effusion. Possible very small right pleural effusion. No pneumothorax. CARDIOVASCULAR: Normal heart size. Mild congestive change. New right PICC catheter terminating at the cavoatrial junction. OSSEOUS STRUCTURES: No significant abnormalities. VISUALIZED UPPER ABDOMEN: Normal. OTHER FINDINGS: None. IMPRESSION: Multifocal right-sided pulmonary opacity. Possible pneumonia. Small left and possible very small right pleural effusion. New right PICC catheter terminating at the region of the cavoatrial junction.
--- NOTE | 2017-09-21 15:28 | PCM.PROC ---
Procedures Attestation:: I certify that I have explained the specified Operation(s) or Procedure(s), risks, benefits and reasonable alternatives to the Patient and/or other person responsible. The opportunity was given to ask questions and all questions answered - Intubation Time Out Performed: Yes Sedative: Etomidate Mg Given: 20 Laryngoscope: Heath ET Tube Size: 7.5 ET Tube Uncuffed: No ET Tube Secured Locarion: Lips (20) ET Tube Placement Confirmation: Visualized Passing Through Cords, Breath Sounds Equal Bilaterally, No Breath Sounds Over Epigastrum, Confirmation w/Capnometry Patient Tolerated Procedure: Well Procedure Immediate Complications: None
--- NOTE | 2017-09-21 15:31 | PCM.PROC ---
Procedures Attestation:: I certify that I have explained the specified Operation(s) or Procedure(s), risks, benefits and reasonable alternatives to the Patient and/or other person responsible. The opportunity was given to ask questions and all questions answered - Central Line Placement Right Femoral Hemodialysis Access Aseptic technique was employed throughout the procedure: Hand Hygiene done prior to procedure, Full sterile barriers (mask, hair cover, sterile gown, sterile gloves), Full body sterile drape, Chloraprep Antiseptic: 2 minute prep for Femoral CVP Time Out Performed: Yes Pt. Placed on Pulse Ox Monitor: Yes Central Line Prep: Chlorhexidine-Alcohol Combination Local Anesthesia Used: Lidocaine 1% Amount of Anesthesia Used (mls): 5 Ultrasound Used for Placement: No Central Line Lumen Inserted: double Central Line Length: 16 cm Post Procedure: Sutured in Place, Good Blood Return, All Ports Aspirated, Flushed, Capped, Sterile Dressing Applied Secured by: Suture Post procedure dressing: Clear vapor permeable, Chlorhexidine disc (Biopatch) Post Procedure X-Ray: No Patient Tolerated Procedure: Well Immediate Complications: None
--- NOTE | 2017-09-21 15:46 | RAD ---
HISTORY: Intubation COMPARISON: Portable chest 09/21/2017 11:47 a.m.. FINDINGS: Endotracheal tube is placed with the tip terminating approximately 3 cm above the jo-ann. Nasogastric tube is also been placement to terminate at the left upper quadrant abdomen. Right PICC is unchanged in position LUNGS: Limited residual patchy density in the right base with remaining lung graham appearing clear. PLEURA: Minimal bilateral pleural effusions are unchanged blunts the bilateral costophrenic sulci. No pneumothorax bilaterally. CARDIOVASCULAR: Cardiac silhouette remains prominent with diminishing pulmonary venous congestion identified. OSSEOUS STRUCTURES: No significant abnormalities. VISUALIZED UPPER ABDOMEN: Normal. OTHER FINDINGS: None. IMPRESSION: Improving CHF. Residual pulmonary edema is identified under [id number] basis with trace bilateral pleural effusions. Limited airspace disease is questioned at the right base medially once again.
--- NOTE | 2017-09-21 17:24 | CP.CCUPN ---
<Bertin Wheat - Last Filed: 09/21/17 17:50> CCU Subjective - Physician Review Subjective (Free Text): PGY1 ICU Progress Note for Dr. Blair Patient began to have agonal respirations while on BiPAP. Patient was intubated. CCU Objective - Vital Signs / Intake & Output Intake and Output (Last 8hrs): Intake & Output 09/21/17 09/21/17 09/21/17 06:59 14:59 22:59 Intake Total 50 Output Total 150 Balance -100 Weight 94 lb Intake: Intake, IV Amount 50 Left Hand 50 Output: Urine 150 Urethral (Garcia) 150 Other: # Bowel Movements 1 - Physical Exam Head: Positive for: Atraumatic, Normocephalic Extroacular Muscles: Positive for: EOMI Mouth: Positive for: Other (intubated) Respiratory/Chest: Positive for: Rales (b/l bases), Other (intubated) Cardiovascular: Positive for: Regular Rate and Rhythm, Normal S1, S2 Abdomen: Negative for: Tenderness, Distention Genitourinary/Pelvic Exam: Positive for: Other (hemodialysis catheter inserted in R femoral) Lower Extremity: Positive for: Other (SCDs in place) Neurological: Positive for: Other (intubated/sedated) Skin: Positive for: Warm, Dry Psychiatric: Positive for: Other (intubated/sedated) - Medications Active Medications: Active Medications Generic Name Dose Route Start Last Admin Trade Name Freq PRN Reason Stop Dose Admin Albuterol/Ipratropium 3 ml 09/20/17 12:00 09/21/17 15:49 Duoneb 3 Mg/0.5 Mg (3 Ml) Ud INH 3 ml RQ4 GLADYS Administration Aspirin 81 mg 09/11/17 10:00 09/21/17 09:45 Ecotrin PO Not Given DAILY GLADYS Dextrose 0 ml 09/10/17 17:21 Dextrose 50% Inj IV STAT PRN Hypoglycemia Protocol Protocol Dextrose 0 gm 09/10/17 17:21 Glutose 15 PO ONCE PRN Hypoglycemia Protocol Protocol Epoetin Sarath 10,000 unit 09/15/17 10:00 09/20/17 11:12 Procrit SC 10,000 unit TTS GLADYS Administration Ferric Sodium Gluconate Complex 125 mg 09/14/17 11:30 09/21/17 09:46 Ferrlecit IVPB 09/22/17 11:31 125 mg DAILY GLADYS Administration Furosemide 20 mg 09/20/17 10:30 09/20/17 13:06 Lasix IVP Not Given BID GLADYS Glucagon 0 mg 09/10/17 17:21 Glucagen Diagnostic Kit IM STAT PRN Hypoglycemia Protocol Protocol Heparin Sodium (Porcine) 5,000 units 09/20/17 22:00 09/21/17 13:14 Heparin SC 5,000 units Q8 GLADYS Administration Dextrose 1,000 mls @ 0 mls/hr 09/10/17 17:21 Dextrose 5% In Water 1000 Ml IV .Q0M PRN Hypoglycemia Protocol Protocol Per Protocol Cefazolin Sodium 500 mg/ 50 mls @ 100 mls/hr 09/19/17 17:00 09/21/17 17:09 Dextrose IVPB 100 mls/hr Q8H GLADYS Administration Sodium Chloride 1,000 mls @ 75 mls/hr 09/21/17 12:33 09/21/17 13:11 Sodium Chloride 0.45% IV 75 mls/hr .[id number] GLADYS Administration Propofol 1,000 mg in 100 mls @ 1.279 mls/hr 09/21/17 14:00 09/21/17 14:00 Diprivan IV 5 mcg/kg/min .Q24H PRN 1.279 mls/hr TITRATE PER MD ORDER Administration Protocol 5 MCG/KG/MIN Insulin Aspart 0 unit 09/16/17 00:00 09/21/17 11:57 Novolog SC Not Given Q6 GLADYS Protocol Insulin Detemir 12 unit 09/18/17 22:00 09/20/17 21:51 Levemir SC 12 unit HS GLADSY Administration Insulin Detemir 12 unit 09/19/17 10:00 09/21/17 09:12 Levemir SC Not Given QAM GLADYS Ondansetron HCl 4 mg 09/10/17 17:00 09/13/17 11:01 Zofran Inj IVP 4 mg Q6 PRN Administration Nausea/Vomiting Pantoprazole Sodium 40 mg 09/11/17 10:00 09/21/17 09:47 Protonix Inj IVP 40 mg DAILY GLADYS Administration Potassium Chloride 40 meq 09/21/17 10:00 09/21/17 17:09 Potassium Chloride Oral Soln PO 09/22/17 10:01 40 meq BID GLADYS Administration Rosuvastatin Calcium 2.5 mg 09/10/17 22:00 09/20/17 23:30 Crestor PO Not Given HS GLADYS - Patient Studies Lab Studies: Microbiology Studies 09/20/17 09:24 Urine Culture - Final Urine,Catheterized No Growth (<1,000 CFU/ML) Lab Studies 09/21/17 09/21/17 09/21/17 Range/Units 11:56 06:07 06:07 WBC 12.1 H (4.8-10.8) K/uL RBC 3.92 (3.80-5.20) Mil/uL Hgb 9.4 L (11.0-16.0) g/dL Hct 30.7 L (34.0-47.0) % MCV 78.1 L (81.0-99.0) fL MCH 23.9 L (27.0-31.0) pg MCHC 30.6 L (33.0-37.0) g/dL RDW 19.9 H (11.5-14.5) % Plt Count 301 (130-400) K/uL MPV 9.1 (7.2-11.7) fL Neut % (Auto) 79.1 H (50.0-75.0) % Lymph % (Auto) 5.8 L (20.0-40.0) % [place] % (Auto) 14.9 H (0.0-10.0) % Eos % (Auto) 0.1 (0.0-4.0) % Baso % (Auto) 0.1 (0.0-2.0) % Neut # 9.6 H (1.8-7.0) K/uL Lymph # 0.7 L (1.0-4.3) K/uL [place] # 1.8 H (0.0-0.8) K/uL Eos # 0.0 (0.0-0.7) K/uL Baso # 0.0 (0.0-0.2) K/uL Neutrophils % (Manual) 66 (50-75) % Band Neutrophils % 10 H (0-2) % Lymphocytes % (Manual) 6 L (20-40) % Monocytes % (Manual) 16 H (0-10) % Metamyelocytes % 1 H (0-0) % Myelocytes % 1 H (0-0) % Nucleated RBC % 12 H (0-0) % Platelet Estimate Normal (NORMAL) Hypochromasia (manual) Moderate Poikilocytosis (manual Slight Anisocytosis (manual) Moderate Target Cells Moderate Sodium 156 H (132-148) mmol/L Potassium 3.2 L (3.6-5.2) mmol/L Chloride 117 H (98-107) mmol/L Carbon Dioxide 30 (22-30) mmol/L Anion Gap 13 (10-20) BUN 77 H (7-17) mg/dL Creatinine 2.4 H (0.7-1.2) mg/dL Est GFR ( Amer) 23 Est GFR (Non-Af Amer) 19 POC Glucose (mg/dL) 171 H (65-110) mg/dL Random Glucose 138 H (65-105) mg/dL Calcium 8.5 L (8.6-10.4) mg/dl Phosphorus 4.3 (2.5-4.5) mg/dL Magnesium 2.2 (1.6-2.3) mg/dL Total Bilirubin 0.4 (0.2-1.3) mg/dL AST 48 H D (14-36) U/L ALT 57 H D (9-52) U/L Alkaline Phosphatase 62 (38-126) U/L Total Protein 6.8 (6.3-8.3) g/dL Albumin 3.1 L (3.5-5.0) g/dL Globulin 3.7 (2.2-3.9) gm/dL Albumin/Globulin Ratio 0.8 L (1.0-2.1) Urine Color (YELLOW) Urine Clarity (Clear) Urine pH (5.0-8.0) Ur Specific [place] (1.003-1.030) Urine Protein (NEGATIVE) mg/dL Urine Glucose (UA) (Normal) mg/dL Urine Ketones (NEGATIVE) mg/dL Urine Blood (NEGATIVE) Urine Nitrate (NEGATIVE) Urine Bilirubin (NEGATIVE) Urine Urobilinogen (0.2-1.0) mg/dL Ur Leukocyte Esterase (Negative) [place]/uL Urine WBC (Auto) (0-5) /hpf Urine RBC (Auto) (0-3) /hpf Urine WBC Clumps (Auto) (NONE) /hpf Ur Squamous Epith Cells (0-5) /hpf Urine Bacteria (<OCC) Hyaline Casts (0-2) /lpf 09/21/17 09/20/17 09/20/17 Range/Units 05:26 23:45 18:39 WBC (4.8-10.8) K/uL RBC (3.80-5.20) Mil/uL Hgb (11.0-16.0) g/dL Hct (34.0-47.0) % MCV (81.0-99.0) fL MCH (27.0-31.0) pg MCHC (33.0-37.0) g/dL RDW (11.5-14.5) % Plt Count (130-400) K/uL MPV (7.2-11.7) fL Neut % (Auto) (50.0-75.0) % Lymph % (Auto) (20.0-40.0) % [place] % (Auto) (0.0-10.0) % Eos % (Auto) (0.0-4.0) % Baso % (Auto) (0.0-2.0) % Neut # (1.8-7.0) K/uL Lymph # (1.0-4.3) K/uL [place] # (0.0-0.8) K/uL Eos # (0.0-0.7) K/uL Baso # (0.0-0.2) K/uL Neutrophils % (Manual) (50-75) % Band Neutrophils % (0-2) % Lymphocytes % (Manual) (20-40) % Monocytes % (Manual) (0-10) % Metamyelocytes % (0-0) % Myelocytes % (0-0) % Nucleated RBC % (0-0) % Platelet Estimate (NORMAL) Hypochromasia (manual) Poikilocytosis (manual Anisocytosis (manual) Target Cells Sodium (132-148) mmol/L Potassium (3.6-5.2) mmol/L Chloride (98-107) mmol/L Carbon Dioxide (22-30) mmol/L Anion Gap (10-20) BUN (7-17) mg/dL Creatinine (0.7-1.2) mg/dL Est GFR ( Amer) Est GFR (Non-Af Amer) POC Glucose (mg/dL) 127 H 346 H (65-110) mg/dL Random Glucose (65-105) mg/dL Calcium (8.6-10.4) mg/dl Phosphorus (2.5-4.5) mg/dL Magnesium (1.6-2.3) mg/dL Total Bilirubin (0.2-1.3) mg/dL AST (14-36) U/L ALT (9-52) U/L Alkaline Phosphatase (38-126) U/L Total Protein (6.3-8.3) g/dL Albumin (3.5-5.0) g/dL Globulin (2.2-3.9) gm/dL Albumin/Globulin Ratio (1.0-2.1) Urine Color Yellow (YELLOW) Urine Clarity Slight-cloudy (Clear) Urine pH 5.0 (5.0-8.0) Ur Specific [place] 1.018 (1.003-1.030) Urine Protein 2+ H (NEGATIVE) mg/dL Urine Glucose (UA) 1+ (Normal) mg/dL Urine Ketones Trace (NEGATIVE) mg/dL Urine Blood 3+ H (NEGATIVE) Urine Nitrate Negative (NEGATIVE) Urine Bilirubin Negative (NEGATIVE) Urine Urobilinogen Normal (0.2-1.0) mg/dL Ur Leukocyte Esterase 3+ H (Negative) [place]/uL Urine WBC (Auto) 312 H (0-5) /hpf Urine RBC (Auto) 279 H (0-3) /hpf Urine WBC Clumps (Auto) Many H (NONE) /hpf Ur Squamous Epith Cells 10 H (0-5) /hpf Urine Bacteria Mod H (<OCC) Hyaline Casts 3-5 H (0-2) /lpf 09/20/17 Range/Units 17:38 WBC (4.8-10.8) K/uL RBC (3.80-5.20) Mil/uL Hgb (11.0-16.0) g/dL Hct (34.0-47.0) % MCV (81.0-99.0) fL MCH (27.0-31.0) pg MCHC (33.0-37.0) g/dL RDW (11.5-14.5) % Plt Count (130-400) K/uL MPV (7.2-11.7) fL Neut % (Auto) (50.0-75.0) % Lymph % (Auto) (20.0-40.0) % [place] % (Auto) (0.0-10.0) % Eos % (Auto) (0.0-4.0) % Baso % (Auto) (0.0-2.0) % Neut # (1.8-7.0) K/uL Lymph # (1.0-4.3) K/uL [place] # (0.0-0.8) K/uL Eos # (0.0-0.7) K/uL Baso # (0.0-0.2) K/uL Neutrophils % (Manual) (50-75) % Band Neutrophils % (0-2) % Lymphocytes % (Manual) (20-40) % Monocytes % (Manual) (0-10) % Metamyelocytes % (0-0) % Myelocytes % (0-0) % Nucleated RBC % (0-0) % Platelet Estimate (NORMAL) Hypochromasia (manual) Poikilocytosis (manual Anisocytosis (manual) Target Cells Sodium (132-148) mmol/L Potassium (3.6-5.2) mmol/L Chloride (98-107) mmol/L Carbon Dioxide (22-30) mmol/L Anion Gap (10-20) BUN (7-17) mg/dL Creatinine (0.7-1.2) mg/dL Est GFR ( Amer) Est GFR (Non-Af Amer) POC Glucose (mg/dL) 395 H (65-110) mg/dL Random Glucose (65-105) mg/dL Calcium (8.6-10.4) mg/dl Phosphorus (2.5-4.5) mg/dL Magnesium (1.6-2.3) mg/dL Total Bilirubin (0.2-1.3) mg/dL AST (14-36) U/L ALT (9-52) U/L Alkaline Phosphatase (38-126) U/L Total Protein (6.3-8.3) g/dL Albumin (3.5-5.0) g/dL Globulin (2.2-3.9) gm/dL Albumin/Globulin Ratio (1.0-2.1) Urine Color (YELLOW) Urine Clarity (Clear) Urine pH (5.0-8.0) Ur Specific [place] (1.003-1.030) Urine Protein (NEGATIVE) mg/dL Urine Glucose (UA) (Normal) mg/dL Urine Ketones (NEGATIVE) mg/dL Urine Blood (NEGATIVE) Urine Nitrate (NEGATIVE) Urine Bilirubin (NEGATIVE) Urine Urobilinogen (0.2-1.0) mg/dL Ur Leukocyte Esterase (Negative) [place]/uL Urine WBC (Auto) (0-5) /hpf Urine RBC (Auto) (0-3) /hpf Urine WBC Clumps (Auto) (NONE) /hpf Ur Squamous Epith Cells (0-5) /hpf Urine Bacteria (<OCC) Hyaline Casts (0-2) /lpf Laboratory Results - last 24 hr 09/20/17 09/20/17 09/20/17 17:38 18:39 23:45 WBC RBC Hgb Hct MCV MCH MCHC RDW Plt Count MPV Neut % (Auto) Lymph % (Auto) [place] % (Auto) Eos % (Auto) Baso % (Auto) Neut # Lymph # [place] # Eos # Baso # Neutrophils % (Manual) Band Neutrophils % Lymphocytes % (Manual) Monocytes % (Manual) Metamyelocytes % Myelocytes % Nucleated RBC % Platelet Estimate Hypochromasia (manual) Poikilocytosis (manual Anisocytosis (manual) Target Cells Sodium Potassium Chloride Carbon Dioxide Anion Gap BUN Creatinine Est GFR ( Amer) Est GFR (Non-Af Amer) POC Glucose (mg/dL) 395 H 346 H Random Glucose Calcium Phosphorus Magnesium Total Bilirubin AST ALT Alkaline Phosphatase Total Protein Albumin Globulin Albumin/Globulin Ratio Urine Color Yellow Urine Clarity Slight-cloudy Urine pH 5.0 Ur Specific [place] 1.018 Urine Protein 2+ H Urine Glucose (UA) 1+ Urine Ketones Trace Urine Blood 3+ H Urine Nitrate Negative Urine Bilirubin Negative Urine Urobilinogen Normal Ur Leukocyte Esterase 3+ H Urine WBC (Auto) 312 H Urine RBC (Auto) 279 H Urine WBC Clumps (Auto) Many H Ur Squamous Epith Cells 10 H Urine Bacteria Mod H Hyaline Casts 3-5 H 09/21/17 09/21/17 09/21/17 05:26 06:07 06:07 WBC 12.1 H RBC 3.92 Hgb 9.4 L Hct 30.7 L MCV 78.1 L MCH 23.9 L MCHC 30.6 L RDW 19.9 H Plt Count 301 MPV 9.1 Neut % (Auto) 79.1 H Lymph % (Auto) 5.8 L [place] % (Auto) 14.9 H Eos % (Auto) 0.1 Baso % (Auto) 0.1 Neut # 9.6 H Lymph # 0.7 L [place] # 1.8 H Eos # 0.0 Baso # 0.0 Neutrophils % (Manual) 66 Band Neutrophils % 10 H Lymphocytes % (Manual) 6 L Monocytes % (Manual) 16 H Metamyelocytes % 1 H Myelocytes % 1 H Nucleated RBC % 12 H Platelet Estimate Normal Hypochromasia (manual) Moderate Poikilocytosis (manual Slight Anisocytosis (manual) Moderate Target Cells Moderate Sodium 156 H Potassium 3.2 L Chloride 117 H Carbon Dioxide 30 Anion Gap 13 BUN 77 H Creatinine 2.4 H Est GFR ( Amer) 23 Est GFR (Non-Af Amer) 19 POC Glucose (mg/dL) 127 H Random Glucose 138 H Calcium 8.5 L Phosphorus 4.3 Magnesium 2.2 Total Bilirubin 0.4 AST 48 H D ALT 57 H D Alkaline Phosphatase 62 Total Protein 6.8 Albumin 3.1 L Globulin 3.7 Albumin/Globulin Ratio 0.8 L Urine Color Urine Clarity Urine pH Ur Specific [place] Urine Protein Urine Glucose (UA) Urine Ketones Urine Blood Urine Nitrate Urine Bilirubin Urine Urobilinogen Ur Leukocyte Esterase Urine WBC (Auto) Urine RBC (Auto) Urine WBC Clumps (Auto) Ur Squamous Epith Cells Urine Bacteria Hyaline Casts 09/21/17 11:56 WBC RBC Hgb Hct MCV MCH MCHC RDW Plt Count MPV Neut % (Auto) Lymph % (Auto) [place] % (Auto) Eos % (Auto) Baso % (Auto) Neut # Lymph # [place] # Eos # Baso # Neutrophils % (Manual) Band Neutrophils % Lymphocytes % (Manual) Monocytes % (Manual) Metamyelocytes % Myelocytes % Nucleated RBC % Platelet Estimate Hypochromasia (manual) Poikilocytosis (manual Anisocytosis (manual) Target Cells Sodium Potassium Chloride Carbon Dioxide Anion Gap BUN Creatinine Est GFR ( Amer) Est GFR (Non-Af Amer) POC Glucose (mg/dL) 171 H Random Glucose Calcium Phosphorus Magnesium Total Bilirubin AST ALT Alkaline Phosphatase Total Protein Albumin Globulin Albumin/Globulin Ratio Urine Color Urine Clarity Urine pH Ur Specific [place] Urine Protein Urine Glucose (UA) Urine Ketones Urine Blood Urine Nitrate Urine Bilirubin Urine Urobilinogen Ur Leukocyte Esterase Urine WBC (Auto) Urine RBC (Auto) Urine WBC Clumps (Auto) Ur Squamous Epith Cells Urine Bacteria Hyaline Casts Fingerstick Blood Sugar Results: 127 Review of Systems - Review of Systems Systems not reviewed;Unavailable: Intubated Critical Care Progress Note - Nutrition Nutrition: Nutrition Category Date Time Status NPO Diet [DIET] Diets 09/20/17 Dinner Active Assessment/Plan - Assessment and Plan (Free Text) Assessment: Patient is an 81 year old female presenting with NSTEMI, acute renal failure and acute hypoxemic respiratory failure. Plan: Respiratory: Patient intubated due to agonal respirations while on BiPAP ABG - pCO2 37/pO2 52/HCO3 21.1/pH 7.35 - while on BiPAP post intubation ABG - pCO2 43/pO2 312/HCO3 23/pH 7.34 - vent settings 400/100/14 /5 CXR 09/21 - Improving CHF. Residual pulmonary edema is identified under mild-to- moderate basis with trace bilateral pleural effusions. Limited airspace disease is questioned at the right base medially Duoneb 3mL INH q4h Neuro: Propofol drip Renal: Nephro consult, Dr. Alatorre, help appreciated Cr worsening again 2.4 BUN worsening 77 Dialysis cath placed in right femoral NS @ 75 mL/hr Cardio: Cardio consult, Dr. Dunbar, help appreciated ECHO 09/10 - EF 50-55%, anterior and apical septum hypokinetic; MR mod.-severe ; TR mod.; Pulmonary HTN mod-severe BP controlled Trop increased to 3.78 (09/20) - on admission 09/10 - 0.646/0.485/0.551/1.030 Aspirin 81mg PO daily Crestor 2.5 mg PO HS Cardio recs - will plan for cardiac cath GI: OGT inserted Started on [employer] tube feedings Discontinued Levemir ISS only Prophylactic Care: Heparin 5000u SC q8h Protonix 40mg IVP daily Case discussed with Dr. Johnnie Wheat PGY1 <Ismael Blair - Last Filed: 09/21/17 18:31> CCU Objective - Vital Signs / Intake & Output Intake and Output (Last 8hrs): Intake & Output 09/21/17 09/21/17 09/21/17 06:59 14:59 22:59 Intake Total 50 286.8 Output Total 150 Balance -100 286.8 Weight 94 lb Intake: IV 8 Intake, IV Amount 50 258.8 Left Hand 50 Right PICC #1 8.8 Right PICC #2 250 Tube Feeding 20 Output: Urine 150 Urethral (Garcia) 150 Other: # Voids Urethral (Garcia) 60 # Bowel Movements 1 - Medications Active Medications: Active Medications Generic Name Dose Route Start Last Admin Trade Name Freq PRN Reason Stop Dose Admin Albuterol/Ipratropium 3 ml 09/20/17 12:00 09/21/17 15:49 Duoneb 3 Mg/0.5 Mg (3 Ml) Ud INH 3 ml RQ4 GLADYS Administration Aspirin 81 mg 09/11/17 10:00 09/21/17 09:45 Ecotrin PO Not Given DAILY GLADYS Dextrose 0 ml 09/10/17 17:21 Dextrose 50% Inj IV STAT PRN Hypoglycemia Protocol Protocol Dextrose 0 gm 09/10/17 17:21 Glutose 15 PO ONCE PRN Hypoglycemia Protocol Protocol Epoetin Sarath 10,000 unit 09/15/17 10:00 09/20/17 11:12 Procrit SC 10,000 unit TTS GLADYS Administration Ferric Sodium Gluconate Complex 125 mg 09/14/17 11:30 09/21/17 09:46 Ferrlecit IVPB 09/22/17 11:31 125 mg DAILY GLADYS Administration Furosemide 20 mg 09/20/17 10:30 09/20/17 13:06 Lasix IVP Not Given BID GLADYS Glucagon 0 mg 09/10/17 17:21 Glucagen Diagnostic Kit IM STAT PRN Hypoglycemia Protocol Protocol Heparin Sodium (Porcine) 5,000 units 09/20/17 22:00 09/21/17 13:14 Heparin SC 5,000 units Q8 GLADYS Administration Dextrose 1,000 mls @ 0 mls/hr 09/10/17 17:21 Dextrose 5% In Water 1000 Ml IV .Q0M PRN Hypoglycemia Protocol Protocol Per Protocol Cefazolin Sodium 500 mg/ 50 mls @ 100 mls/hr 09/19/17 17:00 09/21/17 17:09 Dextrose IVPB 100 mls/hr Q8H GLADYS Administration Sodium Chloride 1,000 mls @ 75 mls/hr 09/21/17 12:33 09/21/17 13:11 Sodium Chloride 0.45% IV 75 mls/hr .[id number] GLADYS Administration Propofol 1,000 mg in 100 mls @ 1.279 mls/hr 09/21/17 14:00 09/21/17 15:20 Diprivan IV 15 mcg/kg/min .Q24H PRN 3.837 mls/hr TITRATE PER MD ORDER Titration Protocol 5 MCG/KG/MIN Insulin Aspart 0 unit 09/16/17 00:00 09/21/17 11:57 Novolog SC Not Given Q6 GLADYS Protocol Ondansetron HCl 4 mg 09/10/17 17:00 09/13/17 11:01 Zofran Inj IVP 4 mg Q6 PRN Administration Nausea/Vomiting Pantoprazole Sodium 40 mg 09/11/17 10:00 09/21/17 09:47 Protonix Inj IVP 40 mg DAILY GLADYS Administration Potassium Chloride 40 meq 09/21/17 10:00 09/21/17 17:09 Potassium Chloride Oral Soln PO 09/22/17 10:01 40 meq BID GLADYS Administration Rosuvastatin Calcium 2.5 mg 09/10/17 22:00 09/20/17 23:30 Crestor PO Not Given HS GLADYS - Patient Studies Lab Studies: Microbiology Studies 09/20/17 09:24 Urine Culture - Final Urine,Catheterized No Growth (<1,000 CFU/ML) Lab Studies 09/21/17 09/21/17 09/21/17 Range/Units 17:35 17:12 11:56 WBC (4.8-10.8) K/uL RBC (3.80-5.20) Mil/uL Hgb (11.0-16.0) g/dL Hct (34.0-47.0) % MCV (81.0-99.0) fL MCH (27.0-31.0) pg MCHC (33.0-37.0) g/dL RDW (11.5-14.5) % Plt Count (130-400) K/uL MPV (7.2-11.7) fL Neut % (Auto) (50.0-75.0) % Lymph % (Auto) (20.0-40.0) % [place] % (Auto) (0.0-10.0) % Eos % (Auto) (0.0-4.0) % Baso % (Auto) (0.0-2.0) % Neut # (1.8-7.0) K/uL Lymph # (1.0-4.3) K/uL [place] # (0.0-0.8) K/uL Eos # (0.0-0.7) K/uL Baso # (0.0-0.2) K/uL Neutrophils % (Manual) (50-75) % Band Neutrophils % (0-2) % Lymphocytes % (Manual) (20-40) % Monocytes % (Manual) (0-10) % Metamyelocytes % (0-0) % Myelocytes % (0-0) % Nucleated RBC % (0-0) % Platelet Estimate (NORMAL) Hypochromasia (manual) Poikilocytosis (manual Anisocytosis (manual) Target Cells Puncture Site Rra pCO2 43 (35-45) mm/Hg pO2 312 H (80-100) mm/Hg HCO3 23.0 (21-28) mmol/L ABG pH 7.34 L (7.35-7.45) ABG Total CO2 24.5 (22-28) mmol/L ABG O2 Saturation 98.0 (95-98) % ABG Base Excess -2.5 L (-2.0-3.0) mmol/L ABG Hemoglobin 8.7 L (11.7-17.4) g/dL ABG Carboxyhemoglobin 0.5 (0.5-1.5) % POC ABG HHb (Measured) 2.0 (0.0-5.0) % ABG Methemoglobin 0.6 (0.0-3.0) % Guy Test Na A-a O2 Difference 347.0 mm/Hg Respiratory Index 1.1 Hgb O2 Saturation 96.9 (95.0-98.0) % Vent Mode Prvc Mechanical Rate 14 FiO2 100.0 % Tidal Volume 400 PEEP 5 Sodium (132-148) mmol/L Potassium (3.6-5.2) mmol/L Chloride (98-107) mmol/L Carbon Dioxide (22-30) mmol/L Anion Gap (10-20) BUN (7-17) mg/dL Creatinine (0.7-1.2) mg/dL Est GFR ( Amer) Est GFR (Non-Af Amer) POC Glucose (mg/dL) 173 H 171 H (65-110) mg/dL Random Glucose (65-105) mg/dL Calcium (8.6-10.4) mg/dl Phosphorus (2.5-4.5) mg/dL Magnesium (1.6-2.3) mg/dL Total Bilirubin (0.2-1.3) mg/dL AST (14-36) U/L ALT (9-52) U/L Alkaline Phosphatase (38-126) U/L Total Protein (6.3-8.3) g/dL Albumin (3.5-5.0) g/dL Globulin (2.2-3.9) gm/dL Albumin/Globulin Ratio (1.0-2.1) Urine Color (YELLOW) Urine Clarity (Clear) Urine pH (5.0-8.0) Ur Specific [place] (1.003-1.030) Urine Protein (NEGATIVE) mg/dL Urine Glucose (UA) (Normal) mg/dL Urine Ketones (NEGATIVE) mg/dL Urine Blood (NEGATIVE) Urine Nitrate (NEGATIVE) Urine Bilirubin (NEGATIVE) Urine Urobilinogen (0.2-1.0) mg/dL Ur Leukocyte Esterase (Negative) [place]/uL Urine WBC (Auto) (0-5) /hpf Urine RBC (Auto) (0-3) /hpf Urine WBC Clumps (Auto) (NONE) /hpf Ur Squamous Epith Cells (0-5) /hpf Urine Bacteria (<OCC) Hyaline Casts (0-2) /lpf 09/21/17 09/21/17 09/21/17 Range/Units 06:07 06:07 05:26 WBC 12.1 H (4.8-10.8) K/uL RBC 3.92 (3.80-5.20) Mil/uL Hgb 9.4 L (11.0-16.0) g/dL Hct 30.7 L (34.0-47.0) % MCV 78.1 L (81.0-99.0) fL MCH 23.9 L (27.0-31.0) pg MCHC 30.6 L (33.0-37.0) g/dL RDW 19.9 H (11.5-14.5) % Plt Count 301 (130-400) K/uL MPV 9.1 (7.2-11.7) fL Neut % (Auto) 79.1 H (50.0-75.0) % Lymph % (Auto) 5.8 L (20.0-40.0) % [place] % (Auto) 14.9 H (0.0-10.0) % Eos % (Auto) 0.1 (0.0-4.0) % Baso % (Auto) 0.1 (0.0-2.0) % Neut # 9.6 H (1.8-7.0) K/uL Lymph # 0.7 L (1.0-4.3) K/uL [place] # 1.8 H (0.0-0.8) K/uL Eos # 0.0 (0.0-0.7) K/uL Baso # 0.0 (0.0-0.2) K/uL Neutrophils % (Manual) 66 (50-75) % Band Neutrophils % 10 H (0-2) % Lymphocytes % (Manual) 6 L (20-40) % Monocytes % (Manual) 16 H (0-10) % Metamyelocytes % 1 H (0-0) % Myelocytes % 1 H (0-0) % Nucleated RBC % 12 H (0-0) % Platelet Estimate Normal (NORMAL) Hypochromasia (manual) Moderate Poikilocytosis (manual Slight Anisocytosis (manual) Moderate Target Cells Moderate Puncture Site pCO2 (35-45) mm/Hg pO2 (80-100) mm/Hg HCO3 (21-28) mmol/L ABG pH (7.35-7.45) ABG Total CO2 (22-28) mmol/L ABG O2 Saturation (95-98) % ABG Base Excess (-2.0-3.0) mmol/L ABG Hemoglobin (11.7-17.4) g/dL ABG Carboxyhemoglobin (0.5-1.5) % POC ABG HHb (Measured) (0.0-5.0) % ABG Methemoglobin (0.0-3.0) % Guy Test A-a O2 Difference mm/Hg Respiratory Index Hgb O2 Saturation (95.0-98.0) % Vent Mode Mechanical Rate FiO2 % Tidal Volume PEEP Sodium 156 H (132-148) mmol/L Potassium 3.2 L (3.6-5.2) mmol/L Chloride 117 H (98-107) mmol/L Carbon Dioxide 30 (22-30) mmol/L Anion Gap 13 (10-20) BUN 77 H (7-17) mg/dL Creatinine 2.4 H (0.7-1.2) mg/dL Est GFR ( Amer) 23 Est GFR (Non-Af Amer) 19 POC Glucose (mg/dL) 127 H (65-110) mg/dL Random Glucose 138 H (65-105) mg/dL Calcium 8.5 L (8.6-10.4) mg/dl Phosphorus 4.3 (2.5-4.5) mg/dL Magnesium 2.2 (1.6-2.3) mg/dL Total Bilirubin 0.4 (0.2-1.3) mg/dL AST 48 H D (14-36) U/L ALT 57 H D (9-52) U/L Alkaline Phosphatase 62 (38-126) U/L Total Protein 6.8 (6.3-8.3) g/dL Albumin 3.1 L (3.5-5.0) g/dL Globulin 3.7 (2.2-3.9) gm/dL Albumin/Globulin Ratio 0.8 L (1.0-2.1) Urine Color (YELLOW) Urine Clarity (Clear) Urine pH (5.0-8.0) Ur Specific [place] (1.003-1.030) Urine Protein (NEGATIVE) mg/dL Urine Glucose (UA) (Normal) mg/dL Urine Ketones (NEGATIVE) mg/dL Urine Blood (NEGATIVE) Urine Nitrate (NEGATIVE) Urine Bilirubin (NEGATIVE) Urine Urobilinogen (0.2-1.0) mg/dL Ur Leukocyte Esterase (Negative) [place]/uL Urine WBC (Auto) (0-5) /hpf Urine RBC (Auto) (0-3) /hpf Urine WBC Clumps (Auto) (NONE) /hpf Ur Squamous Epith Cells (0-5) /hpf Urine Bacteria (<OCC) Hyaline Casts (0-2) /lpf 09/20/17 09/20/17 Range/Units 23:45 18:39 WBC (4.8-10.8) K/uL RBC (3.80-5.20) Mil/uL Hgb (11.0-16.0) g/dL Hct (34.0-47.0) % MCV (81.0-99.0) fL MCH (27.0-31.0) pg MCHC (33.0-37.0) g/dL RDW (11.5-14.5) % Plt Count (130-400) K/uL MPV (7.2-11.7) fL Neut % (Auto) (50.0-75.0) % Lymph % (Auto) (20.0-40.0) % [place] % (Auto) (0.0-10.0) % Eos % (Auto) (0.0-4.0) % Baso % (Auto) (0.0-2.0) % Neut # (1.8-7.0) K/uL Lymph # (1.0-4.3) K/uL [place] # (0.0-0.8) K/uL Eos # (0.0-0.7) K/uL Baso # (0.0-0.2) K/uL Neutrophils % (Manual) (50-75) % Band Neutrophils % (0-2) % Lymphocytes % (Manual) (20-40) % Monocytes % (Manual) (0-10) % Metamyelocytes % (0-0) % Myelocytes % (0-0) % Nucleated RBC % (0-0) % Platelet Estimate (NORMAL) Hypochromasia (manual) Poikilocytosis (manual Anisocytosis (manual) Target Cells Puncture Site pCO2 (35-45) mm/Hg pO2 (80-100) mm/Hg HCO3 (21-28) mmol/L ABG pH (7.35-7.45) ABG Total CO2 (22-28) mmol/L ABG O2 Saturation (95-98) % ABG Base Excess (-2.0-3.0) mmol/L ABG Hemoglobin (11.7-17.4) g/dL ABG Carboxyhemoglobin (0.5-1.5) % POC ABG HHb (Measured) (0.0-5.0) % ABG Methemoglobin (0.0-3.0) % Guy Test A-a O2 Difference mm/Hg Respiratory Index Hgb O2 Saturation (95.0-98.0) % Vent Mode Mechanical Rate FiO2 % Tidal Volume PEEP Sodium (132-148) mmol/L Potassium (3.6-5.2) mmol/L Chloride (98-107) mmol/L Carbon Dioxide (22-30) mmol/L Anion Gap (10-20) BUN (7-17) mg/dL Creatinine (0.7-1.2) mg/dL Est GFR ( Amer) Est GFR (Non-Af Amer) POC Glucose (mg/dL) 346 H (65-110) mg/dL Random Glucose (65-105) mg/dL Calcium (8.6-10.4) mg/dl Phosphorus (2.5-4.5) mg/dL Magnesium (1.6-2.3) mg/dL Total Bilirubin (0.2-1.3) mg/dL AST (14-36) U/L ALT (9-52) U/L Alkaline Phosphatase (38-126) U/L Total Protein (6.3-8.3) g/dL Albumin (3.5-5.0) g/dL Globulin (2.2-3.9) gm/dL Albumin/Globulin Ratio (1.0-2.1) Urine Color Yellow (YELLOW) Urine Clarity Slight-cloudy (Clear) Urine pH 5.0 (5.0-8.0) Ur Specific [place] 1.018 (1.003-1.030) Urine Protein 2+ H (NEGATIVE) mg/dL Urine Glucose (UA) 1+ (Normal) mg/dL Urine Ketones Trace (NEGATIVE) mg/dL Urine Blood 3+ H (NEGATIVE) Urine Nitrate Negative (NEGATIVE) Urine Bilirubin Negative (NEGATIVE) Urine Urobilinogen Normal (0.2-1.0) mg/dL Ur Leukocyte Esterase 3+ H (Negative) [place]/uL Urine WBC (Auto) 312 H (0-5) /hpf Urine RBC (Auto) 279 H (0-3) /hpf Urine WBC Clumps (Auto) Many H (NONE) /hpf Ur Squamous Epith Cells 10 H (0-5) /hpf Urine Bacteria Mod H (<OCC) Hyaline Casts 3-5 H (0-2) /lpf Laboratory Results - last 24 hr 09/20/17 09/20/17 09/21/17 18:39 23:45 05:26 WBC RBC Hgb Hct MCV MCH MCHC RDW Plt Count MPV Neut % (Auto) Lymph % (Auto) [place] % (Auto) Eos % (Auto) Baso % (Auto) Neut # Lymph # [place] # Eos # Baso # Neutrophils % (Manual) Band Neutrophils % Lymphocytes % (Manual) Monocytes % (Manual) Metamyelocytes % Myelocytes % Nucleated RBC % Platelet Estimate Hypochromasia (manual) Poikilocytosis (manual Anisocytosis (manual) Target Cells Puncture Site pCO2 pO2 HCO3 ABG pH ABG Total CO2 ABG O2 Saturation ABG Base Excess ABG Hemoglobin ABG Carboxyhemoglobin POC ABG HHb (Measured) ABG Methemoglobin Guy Test A-a O2 Difference Respiratory Index Hgb O2 Saturation Vent Mode Mechanical Rate FiO2 Tidal Volume PEEP Sodium Potassium Chloride Carbon Dioxide Anion Gap BUN Creatinine Est GFR ( Amer) Est GFR (Non-Af Amer) POC Glucose (mg/dL) 346 H 127 H Random Glucose Calcium Phosphorus Magnesium Total Bilirubin AST ALT Alkaline Phosphatase Total Protein Albumin Globulin Albumin/Globulin Ratio Urine Color Yellow Urine Clarity Slight-cloudy Urine pH 5.0 Ur Specific [place] 1.018 Urine Protein 2+ H Urine Glucose (UA) 1+ Urine Ketones Trace Urine Blood 3+ H Urine Nitrate Negative Urine Bilirubin Negative Urine Urobilinogen Normal Ur Leukocyte Esterase 3+ H Urine WBC (Auto) 312 H Urine RBC (Auto) 279 H Urine WBC Clumps (Auto) Many H Ur Squamous Epith Cells 10 H Urine Bacteria Mod H Hyaline Casts 3-5 H 09/21/17 09/21/17 09/21/17 06:07 06:07 11:56 WBC 12.1 H RBC 3.92 Hgb 9.4 L Hct 30.7 L MCV 78.1 L MCH 23.9 L MCHC 30.6 L RDW 19.9 H Plt Count 301 MPV 9.1 Neut % (Auto) 79.1 H Lymph % (Auto) 5.8 L [place] % (Auto) 14.9 H Eos % (Auto) 0.1 Baso % (Auto) 0.1 Neut # 9.6 H Lymph # 0.7 L [place] # 1.8 H Eos # 0.0 Baso # 0.0 Neutrophils % (Manual) 66 Band Neutrophils % 10 H Lymphocytes % (Manual) 6 L Monocytes % (Manual) 16 H Metamyelocytes % 1 H Myelocytes % 1 H Nucleated RBC % 12 H Platelet Estimate Normal Hypochromasia (manual) Moderate Poikilocytosis (manual Slight Anisocytosis (manual) Moderate Target Cells Moderate Puncture Site pCO2 pO2 HCO3 ABG pH ABG Total CO2 ABG O2 Saturation ABG Base Excess ABG Hemoglobin ABG Carboxyhemoglobin POC ABG HHb (Measured) ABG Methemoglobin Guy Test A-a O2 Difference Respiratory Index Hgb O2 Saturation Vent Mode Mechanical Rate FiO2 Tidal Volume PEEP Sodium 156 H Potassium 3.2 L Chloride 117 H Carbon Dioxide 30 Anion Gap 13 BUN 77 H Creatinine 2.4 H Est GFR ( Amer) 23 Est GFR (Non-Af Amer) 19 POC Glucose (mg/dL) 171 H Random Glucose 138 H Calcium 8.5 L Phosphorus 4.3 Magnesium 2.2 Total Bilirubin 0.4 AST 48 H D ALT 57 H D Alkaline Phosphatase 62 Total Protein 6.8 Albumin 3.1 L Globulin 3.7 Albumin/Globulin Ratio 0.8 L Urine Color Urine Clarity Urine pH Ur Specific [place] Urine Protein Urine Glucose (UA) Urine Ketones Urine Blood Urine Nitrate Urine Bilirubin Urine Urobilinogen Ur Leukocyte Esterase Urine WBC (Auto) Urine RBC (Auto) Urine WBC Clumps (Auto) Ur Squamous Epith Cells Urine Bacteria Hyaline Casts 09/21/17 09/21/17 17:12 17:35 WBC RBC Hgb Hct MCV MCH MCHC RDW Plt Count MPV Neut % (Auto) Lymph % (Auto) [place] % (Auto) Eos % (Auto) Baso % (Auto) Neut # Lymph # [place] # Eos # Baso # Neutrophils % (Manual) Band Neutrophils % Lymphocytes % (Manual) Monocytes % (Manual) Metamyelocytes % Myelocytes % Nucleated RBC % Platelet Estimate Hypochromasia (manual) Poikilocytosis (manual Anisocytosis (manual) Target Cells Puncture Site Rra pCO2 43 pO2 312 H HCO3 23.0 ABG pH 7.34 L ABG Total CO2 24.5 ABG O2 Saturation 98.0 ABG Base Excess -2.5 L ABG Hemoglobin 8.7 L ABG Carboxyhemoglobin 0.5 POC ABG HHb (Measured) 2.0 ABG Methemoglobin 0.6 Guy Test Na A-a O2 Difference 347.0 Respiratory Index 1.1 Hgb O2 Saturation 96.9 Vent Mode Prvc Mechanical Rate 14 FiO2 100.0 Tidal Volume 400 PEEP 5 Sodium Potassium Chloride Carbon Dioxide Anion Gap BUN Creatinine Est GFR ( Amer) Est GFR (Non-Af Amer) POC Glucose (mg/dL) 173 H Random Glucose Calcium Phosphorus Magnesium Total Bilirubin AST ALT Alkaline Phosphatase Total Protein Albumin Globulin Albumin/Globulin Ratio Urine Color Urine Clarity Urine pH Ur Specific [place] Urine Protein Urine Glucose (UA) Urine Ketones Urine Blood Urine Nitrate Urine Bilirubin Urine Urobilinogen Ur Leukocyte Esterase Urine WBC (Auto) Urine RBC (Auto) Urine WBC Clumps (Auto) Ur Squamous Epith Cells Urine Bacteria Hyaline Casts Critical Care Progress Note - Nutrition Nutrition: Nutrition Category Date Time Status NPO Diet [DIET] Diets 09/20/17 Dinner Active Assessment/Plan (1) Hypercapnic respiratory failure Current Visit: Yes Status: Acute (2) CKD (chronic kidney disease) stage 4, GFR 15-29 ml/min Current Visit: Yes Status: Acute Attending/Attestation - Attestation I have personally seen and examined this patient.: Yes I have fully participated in the care of the patient.: Yes I have reviewed all pertinent clinical information: Yes Notes (Text): 09/21/17 18:30 patient seen and examinedin the intensive care unit case discussed with house staff in the morning around Patient intubated for respiratory distress and agonal breathing on BiPAP Continue ventilatory support Seen by cardiology with possible cardiac cath Hemodialysis if renal function worsen
[2017-09-21 17:27] LABS: ABG MECHANICAL RATE 14; ARTERIAL BLOOD GAS MODE PRVC; ARTERIAL BLOOD HGB O2 SAT 96.9 % (95.0-98.0); ATERIAL BLOOD GAS PEEP 5; CARBOXYHEMOGLOBIN 0.5 % (0.5-1.5); DRAW SITE RRA; METHEMOGLOBIN 0.6 % (0.0-3.0)
--- NOTE | 2017-09-21 17:33 | CP.PCM.PN ---
Subjective - Date & Time of Evaluation Date of Evaluation: 09/21/17 Time of Evaluation: 06:00 - Subjective Subjective: events noted IV ancef on order cont rx Objective - Vital Signs/Intake and Output Vital Signs (last 24 hours): Temp Pulse Resp BP Pulse Ox 97.5 F L 99 H 19 156/63 H 100 09/21/17 04:00 09/21/17 12:35 09/21/17 04:00 09/21/17 04:00 09/21/17 04:00 Intake and Output: 09/21/17 09/21/17 06:59 18:59 Intake Total 50 Output Total 150 Balance -100 - Medications Medications: Current Medications Albuterol/Ipratropium (Duoneb 3 Mg/0.5 Mg (3 Ml) Ud) 3 ml INH RQ4 [facility] Last Admin: 09/21/17 15:49 Dose: 3 ml Aspirin (Ecotrin) 81 mg PO DAILY [facility] Last Admin: 09/21/17 09:45 Dose: Not Given Dextrose (Dextrose 50% Inj) 0 ml IV STAT PRN; Protocol PRN Reason: Hypoglycemia Protocol Dextrose (Glutose 15) 0 gm PO ONCE PRN; Protocol PRN Reason: Hypoglycemia Protocol Epoetin Sarath (Procrit) 10,000 unit SC TTS [facility] Last Admin: 09/20/17 11:12 Dose: 10,000 unit Ferric Sodium Gluconate Complex (Ferrlecit) 125 mg IVPB DAILY [facility] Stop: 09/22/17 11:31 Last Admin: 09/21/17 09:46 Dose: 125 mg Furosemide (Lasix) 20 mg IVP BID [facility] Last Admin: 09/20/17 13:06 Dose: Not Given Glucagon (Glucagen Diagnostic Kit) 0 mg IM STAT PRN; Protocol PRN Reason: Hypoglycemia Protocol Heparin Sodium (Porcine) (Heparin) 5,000 units SC Q8 [facility] Last Admin: 09/21/17 13:14 Dose: 5,000 units Dextrose (Dextrose 5% In Water 1000 Ml) 1,000 mls @ 0 mls/hr IV .Q0M PRN; Protocol; Per Protocol PRN Reason: Hypoglycemia Protocol Cefazolin Sodium 500 mg/ (Dextrose) 50 mls @ 100 mls/hr IVPB Q8H [facility] Last Admin: 09/21/17 17:09 Dose: 100 mls/hr Sodium Chloride (Sodium Chloride 0.45%) 1,000 mls @ 75 mls/hr IV .[id number] [facility] Last Admin: 09/21/17 13:11 Dose: 75 mls/hr Propofol (Diprivan) 1,000 mg in 100 mls @ 1.279 mls/hr IV .Q24H PRN; Protocol; 5 MCG/KG/MIN PRN Reason: TITRATE PER MD ORDER Last Admin: 09/21/17 14:00 Dose: 5 mcg/kg/min, 1.279 mls/hr Insulin Aspart (Novolog) 0 unit SC Q6 [facility] PRN Reason: Protocol Last Admin: 09/21/17 11:57 Dose: Not Given Insulin Detemir (Levemir) 12 unit SC HS [facility] Last Admin: 09/20/17 21:51 Dose: 12 unit Insulin Detemir (Levemir) 12 unit SC QAM [facility] Last Admin: 09/21/17 09:12 Dose: Not Given Ondansetron HCl (Zofran Inj) 4 mg IVP Q6 PRN PRN Reason: Nausea/Vomiting Last Admin: 09/13/17 11:01 Dose: 4 mg Pantoprazole Sodium (Protonix Inj) 40 mg IVP DAILY [facility] Last Admin: 09/21/17 09:47 Dose: 40 mg Potassium Chloride (Potassium Chloride Oral Soln) 40 meq PO BID [facility] Stop: 09/22/17 10:01 Last Admin: 09/21/17 17:09 Dose: 40 meq Rosuvastatin Calcium (Crestor) 2.5 mg PO HS [facility] Last Admin: 09/20/17 23:30 Dose: Not Given - Labs Labs: 09/21/17 06:07 09/21/17 06:07 PT 10.3 SECONDS (9.7-12.2) 09/10/17 13:52 INR 0.9 09/10/17 13:52 APTT 34 SECONDS (21-34) 09/10/17 13:52 - Constitutional Appears: Chronically Ill - Head Exam Head Exam: NORMOCEPHALIC - Eye Exam Eye Exam: PERRL - ENT Exam ENT Exam: Mucous Membranes Dry - Neck Exam Neck Exam: absent: Lymphadenopathy - Respiratory Exam Respiratory Exam: Decreased Breath Sounds - Cardiovascular Exam Cardiovascular Exam: REGULAR RHYTHM - GI/Abdominal Exam GI & Abdominal Exam: Distended Assessment and Plan (1) BERYL (acute kidney injury) Status: Acute (2) Acute renal failure Status: Acute (3) CHF (congestive heart failure) Status: Acute (4) CKD (chronic kidney disease) stage 4, GFR 15-29 ml/min Status: Acute (5) Elevated brain natriuretic peptide (BNP) level Status: Acute (6) Hypotension Status: Acute (7) Non-STEMI (non-ST elevated myocardial infarction) Status: Acute
--- NOTE | 2017-09-21 18:54 | PN ---
DATE: FOLLOWUP SUBJECTIVE: The patient's shortness of breath has gotten worse despite BiPAP. She required intubation and mechanical ventilation. She had a PICC line earlier this morning. PHYSICAL EXAMINATION: GENERAL: The patient is an elderly male who does not appear to be in any acute distress. VITAL SIGNS: Blood pressure 156/63, heart rate 105, temperature 97.5, respirations 19. Monitor revealed sinus tachycardia VPCs. HEENT: Pale conjunctivae. CHEST: Bilateral rhonchi. HEART: S1 and S2 regular. EXTREMITIES: No edema. LABORATORY DATA: Today's SMA-7: Sodium 156, potassium 3.2, chloride 117, CO2 of 30, glucose 138, BUN 77, creatinine 2.4. CBC: WBC 12.1, hemoglobin 9.4, hematocrit 30.7, platelet count 301,000. Today's chest x-ray revealed worsening of the right lung infiltrate, predominantly in the right upper and right lower lobes. ASSESSMENT: 1. Recurring respiratory failure requiring intubation and mechanical ventilation. 2. Dehydration and hypernatremia as well as hypokalemia. 3. Worsening renal insufficiency. 4. [id number] myocardial infarction. RECOMMENDATIONS: Continue current IV cefazolin. Continue half normal saline at 75 mL an hour. Discontinue Lasix. Continue subcutaneous heparin. The case was discussed with the cigarette making machine hopper feeder, Dr. Castro at length. Hemodialysis will definitely improve the outcome of any future cardiac catheterization and may improve the current clinical condition and will be discussed with a leather heel breaster. A cardiac catheterization without hemodialysis will most likely result in immediate need for hemodialysis with possible worsening of the patient's clinical condition. In the meantime, the patient would be started on Mucomyst via nasogastric tube at 600 mg twice a day. Elvis Dunbar MD
[2017-09-21] MEDS: Rosuvastatin Calcium 2.5 mg Tab PO SCH (21:58)
--- NOTE | 2017-09-21 22:08 | CP.PCM.PN ---
Subjective - Date & Time of Evaluation Date of Evaluation: 09/21/17 Time of Evaluation: 19:00 - Subjective Subjective: Vented, reintubated Objective - Vital Signs/Intake and Output Vital Signs (last 24 hours): Temp Pulse Resp BP Pulse Ox 97.4 F L 109 H 22 143/53 L 100 09/21/17 20:00 09/21/17 21:00 09/21/17 21:00 09/21/17 20:25 09/21/17 21:00 Intake and Output: 09/21/17 09/22/17 18:59 06:59 Intake Total 286.8 236.4 Balance 286.8 236.4 - Medications Medications: Current Medications Albuterol/Ipratropium (Duoneb 3 Mg/0.5 Mg (3 Ml) Ud) 3 ml INH RQ4 [facility] Last Admin: 09/21/17 19:38 Dose: 3 ml Aspirin (Ecotrin) 81 mg PO DAILY [facility] Last Admin: 09/21/17 09:45 Dose: Not Given Dextrose (Dextrose 50% Inj) 0 ml IV STAT PRN; Protocol PRN Reason: Hypoglycemia Protocol Dextrose (Glutose 15) 0 gm PO ONCE PRN; Protocol PRN Reason: Hypoglycemia Protocol Epoetin Sarath (Procrit) 10,000 unit SC TTS [facility] Last Admin: 09/20/17 11:12 Dose: 10,000 unit Ferric Sodium Gluconate Complex (Ferrlecit) 125 mg IVPB DAILY [facility] Stop: 09/22/17 11:31 Last Admin: 09/21/17 09:46 Dose: 125 mg Furosemide (Lasix) 20 mg IVP BID [facility] Last Admin: 09/20/17 13:06 Dose: Not Given Glucagon (Glucagen Diagnostic Kit) 0 mg IM STAT PRN; Protocol PRN Reason: Hypoglycemia Protocol Heparin Sodium (Porcine) (Heparin) 5,000 units SC Q8 [facility] Last Admin: 09/21/17 21:58 Dose: 5,000 units Dextrose (Dextrose 5% In Water 1000 Ml) 1,000 mls @ 0 mls/hr IV .Q0M PRN; Protocol; Per Protocol PRN Reason: Hypoglycemia Protocol Cefazolin Sodium 500 mg/ (Dextrose) 50 mls @ 100 mls/hr IVPB Q8H [facility] Last Admin: 09/21/17 17:09 Dose: 100 mls/hr Sodium Chloride (Sodium Chloride 0.45%) 1,000 mls @ 75 mls/hr IV .[id number] [facility] Last Admin: 09/21/17 13:11 Dose: 75 mls/hr Propofol (Diprivan) 1,000 mg in 100 mls @ 1.279 mls/hr IV .Q24H PRN; Protocol; 5 MCG/KG/MIN PRN Reason: TITRATE PER MD ORDER Last Titration: 09/21/17 15:20 Dose: 15 mcg/kg/min, 3.837 mls/hr Insulin Aspart (Novolog) 0 unit SC Q6 [facility] PRN Reason: Protocol Last Admin: 09/21/17 18:59 Dose: Not Given Ondansetron HCl (Zofran Inj) 4 mg IVP Q6 PRN PRN Reason: Nausea/Vomiting Last Admin: 09/13/17 11:01 Dose: 4 mg Pantoprazole Sodium (Protonix Inj) 40 mg IVP DAILY [facility] Last Admin: 09/21/17 09:47 Dose: 40 mg Potassium Chloride (Potassium Chloride Oral Soln) 40 meq PO BID [facility] Stop: 09/22/17 10:01 Last Admin: 09/21/17 17:09 Dose: 40 meq Rosuvastatin Calcium (Crestor) 2.5 mg PO HS [facility] Last Admin: 09/21/17 21:58 Dose: 2.5 mg - Labs Labs: 09/21/17 06:07 09/21/17 06:07 PT 10.3 SECONDS (9.7-12.2) 09/10/17 13:52 INR 0.9 09/10/17 13:52 APTT 34 SECONDS (21-34) 09/10/17 13:52 - Head Exam Head Exam: ATRAUMATIC - Eye Exam Eye Exam: Normal appearance - ENT Exam ENT Exam: Mucous Membranes Dry - Respiratory Exam Respiratory Exam: Decreased Breath Sounds - Cardiovascular Exam Cardiovascular Exam: +S1, +S2 - GI/Abdominal Exam GI & Abdominal Exam: Normal Bowel Sounds Assessment and Plan (1) Anemia Assessment & Plan: iron deficiency s/p iron anemia of CKD; procrit per renal Status: Chronic
[2017-09-22] MEDS: Albuterol-Ipratrop 3 mg / 0.5 (3 ml) UD INH SCH ×7 (00:10→23:56)
[2017-09-22] MEDS: (Novolog) Insulin Aspart, Recombinant 100 u/ml 10 ml vial SC SCH ×4 (00:28→18:28)
[2017-09-22] MEDS: Sodium Chloride 0.45% 1,000 ML IV SCH (03:18)
[2017-09-22 05:36] LABS: ABG ALLEN TEST POS; ABG MECHANICAL RATE 14; ARTERIAL BLOOD GAS MODE PRVC; ARTERIAL BLOOD HGB O2 SAT 96.5 % (95.0-98.0); ATERIAL BLOOD GAS PEEP 5; CARBOXYHEMOGLOBIN 0.8 % (0.5-1.5); DRAW SITE RR; METHEMOGLOBIN 0.6 % (0.0-3.0)
[2017-09-22 06:29] LABS: BASO % 0.3 % (0.0-2.0); EOS % 0.2 % (0.0-4.0); HEMATOCRIT 26.5 % (34.0-47.0); LYMPH % 10.5 % (20.0-40.0); MEAN CELL VOLUME 77.5 fL (81.0-99.0); MEAN CORPUSCULAR HEMOGLOBIN 24.6 pg (27.0-31.0); MEAN CORPUSCULAR HGB CONC 31.7 g/dL (33.0-37.0); MEAN PLATELET VOLUME 9.3 fL (7.2-11.7); MONO # 1.2 K/uL (0.0-0.8); MONO % 12.5 % (0.0-10.0); NRBC % 10.9 % (0.0-2.0); RED CELL DISTRIBUTION WIDTH 19.4 % (11.5-14.5); WHITE BLOOD COUNT 9.2 K/uL (4.8-10.8)
[2017-09-22] MEDS: Propofol 10 mg/ml 1,000 MG/100 ML VIAL IV PRN ×2 (06:42→14:00)
[2017-09-22 06:52] LABS: ALB/GLOB RATIO 1.1 (1.0-2.1); BILIRUBIN,TOTAL 0.6 mg/dL (0.2-1.3); CALCIUM 8.4 mg/dl (8.6-10.4); MAGNESIUM 2.2 mg/dL (1.6-2.3); PHOSPHOROUS 3.3 mg/dL (2.5-4.5); POTASSIUM 3.8 mmol/L (3.6-5.2); TOTAL PROTEIN 5.2 g/dL (6.3-8.3)
--- NOTE | 2017-09-22 09:01 | RAD ---
Chest x-ray single frontal view History: Intubated. Comparison: 09/21/2017 Findings: Lines and tubes in stable position. Moderate venous congestion. Right hilar prominence. Patchy increased markings at the right lung base. Blunted bilateral costophrenic angles which may represent trace effusions. Mild cardiomegaly. Degenerative changes in the spine shoulders. Impression: Lines and tubes in stable position. Moderate venous congestion. Right hilar prominence. Patchy increased markings at the right lung base. Blunted bilateral costophrenic angles which may represent trace effusions. Mild cardiomegaly.
--- NOTE | 2017-09-22 09:30 | CP.PCM.PN ---
Subjective - Date & Time of Evaluation Date of Evaluation: 09/22/17 Time of Evaluation: 09:27 - Subjective Subjective: Events noted; pt now reintubated since 09/21 Respiratory distress worsened while pt off diuretics CXR with CHF pattern hypernatremia noted sedated now Objective - Vital Signs/Intake and Output Vital Signs (last 24 hours): Temp Pulse Resp BP Pulse Ox 98.4 F 97 H 19 139/52 L 100 09/22/17 04:00 09/22/17 06:24 09/22/17 06:24 09/22/17 06:24 09/22/17 06:24 Intake and Output: 09/22/17 09/22/17 06:59 18:59 Intake Total 999.4 78.8 Output Total 560 60 Balance 439.4 18.8 - Medications Medications: Current Medications Albuterol/Ipratropium (Duoneb 3 Mg/0.5 Mg (3 Ml) Ud) 3 ml INH RQ4 [facility] Last Admin: 09/22/17 07:45 Dose: 3 ml Aspirin (Ecotrin) 81 mg PO DAILY [facility] Last Admin: 09/21/17 09:45 Dose: Not Given Dextrose (Dextrose 50% Inj) 0 ml IV STAT PRN; Protocol PRN Reason: Hypoglycemia Protocol Dextrose (Glutose 15) 0 gm PO ONCE PRN; Protocol PRN Reason: Hypoglycemia Protocol Epoetin Sarath (Procrit) 10,000 unit SC TTS [facility] Last Admin: 09/20/17 11:12 Dose: 10,000 unit Ferric Sodium Gluconate Complex (Ferrlecit) 125 mg IVPB DAILY [facility] Stop: 09/22/17 11:31 Last Admin: 09/21/17 09:46 Dose: 125 mg Furosemide (Lasix) 20 mg IVP BID [facility] Last Admin: 09/20/17 13:06 Dose: Not Given Glucagon (Glucagen Diagnostic Kit) 0 mg IM STAT PRN; Protocol PRN Reason: Hypoglycemia Protocol Heparin Sodium (Porcine) (Heparin) 5,000 units SC Q8 [facility] Last Admin: 09/22/17 05:38 Dose: 5,000 units Dextrose (Dextrose 5% In Water 1000 Ml) 1,000 mls @ 0 mls/hr IV .Q0M PRN; Protocol; Per Protocol PRN Reason: Hypoglycemia Protocol Cefazolin Sodium 500 mg/ (Dextrose) 50 mls @ 100 mls/hr IVPB Q8H [facility] Last Admin: 09/22/17 01:37 Dose: 100 mls/hr Sodium Chloride (Sodium Chloride 0.45%) 1,000 mls @ 75 mls/hr IV .[id number] [facility] Last Admin: 09/22/17 03:18 Dose: 75 mls/hr Propofol (Diprivan) 1,000 mg in 100 mls @ 1.279 mls/hr IV .Q24H PRN; Protocol; 5 MCG/KG/MIN PRN Reason: TITRATE PER MD ORDER Last Admin: 09/22/17 06:42 Dose: 15 mcg/kg/min, 3.837 mls/hr Insulin Aspart (Novolog) 0 unit SC Q6 [facility] PRN Reason: Protocol Last Admin: 09/22/17 05:37 Dose: 2 unit Ondansetron HCl (Zofran Inj) 4 mg IVP Q6 PRN PRN Reason: Nausea/Vomiting Last Admin: 09/13/17 11:01 Dose: 4 mg Pantoprazole Sodium (Protonix Inj) 40 mg IVP DAILY [facility] Last Admin: 09/21/17 09:47 Dose: 40 mg Potassium Chloride (Potassium Chloride Oral Soln) 40 meq PO BID [facility] Stop: 09/22/17 10:01 Last Admin: 09/21/17 17:09 Dose: 40 meq Rosuvastatin Calcium (Crestor) 2.5 mg PO HS [facility] Last Admin: 09/21/17 21:58 Dose: 2.5 mg - Labs Labs: 09/22/17 06:20 09/22/17 06:20 PT 10.3 SECONDS (9.7-12.2) 09/10/17 13:52 INR 0.9 09/10/17 13:52 APTT 34 SECONDS (21-34) 09/10/17 13:52 - Constitutional Appears: In Acute Distress, Chronically Ill - Head Exam Head Exam: ATRAUMATIC, NORMAL INSPECTION - Neck Exam Neck Exam: Normal Inspection. absent: Tenderness - Respiratory Exam Respiratory Exam: Rhonchi, Respiratory Distress - Cardiovascular Exam Cardiovascular Exam: REGULAR RHYTHM, +S1 - GI/Abdominal Exam GI & Abdominal Exam: Soft. absent: Tenderness - Extremities Exam Extremities Exam: Normal Inspection. absent: Tenderness - Neurological Exam Neurological Exam: Altered - Skin Skin Exam: Dry, Warm Assessment and Plan (1) BERYL (acute kidney injury) Status: Acute (2) CHF (congestive heart failure) Status: Acute (3) Chronic hemorrhagic anemia Status: Acute (4) Elevated brain natriuretic peptide (BNP) level Status: Acute (5) Elevated troponin I level Status: Acute (6) Non-STEMI (non-ST elevated myocardial infarction) Status: Acute (7) Transient hypotension Status: Acute (8) CKD (chronic kidney disease) stage 4, GFR 15-29 ml/min Status: Acute - Assessment and Plan (Free Text) Plan: would increase diuretics and free water IV need to treat CHF more aggressively follow lytes closely
[2017-09-22] MEDS: Ferric Sodium Gluconat Complex 62.5 mg/5 ml Vial IVPB SCH (09:53)
[2017-09-22] MEDS: Potassium Chloride 20 mEq/15 ml LIQ UD PO SCH (09:55)
[2017-09-22] MEDS: EPOETIN ALFA 10,000 UNIT/ML ML SC SCH (10:18)
--- NOTE | 2017-09-22 15:51 | PN ---
DATE: FOLLOWUP SUBJECTIVE: The patient is currently sedated on a ventilator. PHYSICAL EXAMINATION: VITAL SIGNS: Blood pressure 135/50, heart rate 105, respirations 24, temperature 98.4. HEENT: Pale conjunctivae. CHEST: Bilateral rhonchi. HEART: S1 and S2 regular. LABORATORY DATA: Hemoglobin and hematocrit 8.4 and 26.5. White count and platelet count are within normal limit. SMA-7: Sodium 154, potassium 3.8, chloride 118, CO2 of 23, glucose 179, BUN 81, creatinine 2.1. Today's chest x-ray report revealed moderate venous congestion. Right hilar prominence. Patchy increased marking at the right lung base. Blunted bilateral costophrenic angles, which may represent trace effusion. ASSESSMENT: 1. Status post [id number] myocardial infarction. 2. Respiratory failure. 3. Chronic renal insufficiency. 4. Dehydration and hypernatremia. RECOMMENDATIONS: I discussed the case at length with the baggage clerk, Dr. Chowdhury and the rotary planer set up operator, Dr. Blair. The patient underwent a dialysis access placement. Although initially with my discussion with Dr. Chowdhury and Dr. Chowdhury suggested to wait for more time; however, after further discussion between Dr. Blair and Dr. Chowdhury, a decision was made to proceed with cardiac cath with the intent of initiating the patient on hemodialysis following that. The case was discussed at length with all family members and the decision making niece was always able to converse with Dr. Chowdhuyr, the baggage clerk prior to giving the okay. The person who will give a consent is one of the sisters who lives with the patient, which I was given her phone number by her daughter. The niece who orchestrates the care of the patient and decision making. All the risks of the procedure were fully explained and all family members understood. Elvis Dunbar MD
--- NOTE | 2017-09-22 15:53 | CP.CCUPN ---
<Bertin Wheat - Last Filed: 09/22/17 15:50> CCU Subjective - Physician Review Subjective (Free Text): PGY1 ICU Progress Note for Dr. Bhatia Patient seen and examined at bedside this morning. Patient is intubated on sedation with propofol. ROS unattainable. CCU Objective - Vital Signs / Intake & Output Intake and Output (Last 8hrs): Intake & Output 09/22/17 09/22/17 09/22/17 06:59 14:59 22:59 Intake Total 684.2 411.4 Output Total 560 260 Balance 124.2 151.4 Weight 96 lb Intake: IV 3.8 15 Intake, IV Amount 680.4 316.4 Right PICC #1 30.4 16.4 Right PICC #2 650 300 Tube Feeding 80 Output: Urine 560 260 Urethral (Garcia) 560 260 Other: # Bowel Movements 0 1 - Physical Exam Head: Positive for: Atraumatic, Normocephalic Mouth: Positive for: Other (intubated) Respiratory/Chest: Positive for: Rales (b/l bases), Other (intubated) Cardiovascular: Positive for: Regular Rate and Rhythm, Normal S1, S2 Abdomen: Negative for: Tenderness, Distention Genitourinary/Pelvic Exam: Positive for: Other (hemodialysis catheter inserted in R femoral) Lower Extremity: Positive for: Other (SCDs in place) Neurological: Positive for: Other (intubated/sedated) Skin: Positive for: Warm, Dry Psychiatric: Positive for: Other (intubated/sedated) - Medications Active Medications: Active Medications Generic Name Dose Route Start Last Admin Trade Name Freq PRN Reason Stop Dose Admin Albuterol/Ipratropium 3 ml 09/20/17 12:00 09/22/17 14:35 Duoneb 3 Mg/0.5 Mg (3 Ml) Ud INH 3 ml RQ4 GLADYS Administration Aspirin 81 mg 09/22/17 10:15 09/22/17 10:21 Aspirin Chewable PO 81 mg DAILY GLADYS Administration Dextrose 0 ml 09/10/17 17:21 Dextrose 50% Inj IV STAT PRN Hypoglycemia Protocol Protocol Dextrose 0 gm 09/10/17 17:21 Glutose 15 PO ONCE PRN Hypoglycemia Protocol Protocol Epoetin Sarath 10,000 unit 09/15/17 10:00 09/22/17 10:18 Procrit SC 10,000 unit TTS GLADYS Administration Furosemide 40 mg 09/22/17 09:32 Lasix IVP BID GLADYS Glucagon 0 mg 09/10/17 17:21 Glucagen Diagnostic Kit IM STAT PRN Hypoglycemia Protocol Protocol Heparin Sodium (Porcine) 5,000 units 09/20/17 22:00 09/22/17 13:50 Heparin SC 5,000 units Q8 GLADYS Administration Dextrose 1,000 mls @ 0 mls/hr 09/10/17 17:21 Dextrose 5% In Water 1000 Ml IV .Q0M PRN Hypoglycemia Protocol Protocol Per Protocol Cefazolin Sodium 500 mg/ 50 mls @ 100 mls/hr 09/19/17 17:00 09/22/17 09:48 Dextrose IVPB 100 mls/hr Q8H GLADYS Administration Dextrose 1,000 mls @ 50 mls/hr 09/22/17 09:45 09/22/17 09:48 Dextrose 5% In Water 1000 Ml IV 50 mls/hr .Q20H GLADYS Administration Propofol 1,000 mg in 100 mls @ 1.306 mls/hr 09/22/17 12:24 Diprivan IV .Q24H PRN TITRATE PER MD ORDER Protocol 5 MCG/KG/MIN Insulin Aspart 0 unit 09/16/17 00:00 09/22/17 13:45 Novolog SC 2 unit Q6 GLADYS Administration Protocol Ondansetron HCl 4 mg 09/10/17 17:00 09/13/17 11:01 Zofran Inj IVP 4 mg Q6 PRN Administration Nausea/Vomiting Pantoprazole Sodium 40 mg 09/11/17 10:00 09/22/17 09:53 Protonix Inj IVP 40 mg DAILY GLADYS Administration Rosuvastatin Calcium 2.5 mg 09/10/17 22:00 09/21/17 21:58 Crestor PO 2.5 mg HS GLADYS Administration - Patient Studies Lab Studies: Microbiology Studies 09/20/17 09:24 Urine Culture - Final Urine,Catheterized No Growth (<1,000 CFU/ML) Lab Studies 09/22/17 09/22/17 09/22/17 Range/Units 11:34 06:20 06:20 WBC 9.2 (4.8-10.8) K/uL RBC 3.42 L (3.80-5.20) Mil/uL Hgb 8.4 L (11.0-16.0) g/dL Hct 26.5 L (34.0-47.0) % MCV 77.5 L (81.0-99.0) fL MCH 24.6 L (27.0-31.0) pg MCHC 31.7 L (33.0-37.0) g/dL RDW 19.4 H (11.5-14.5) % Plt Count 244 (130-400) K/uL MPV 9.3 (7.2-11.7) fL Neut % (Auto) 76.5 H (50.0-75.0) % Lymph % (Auto) 10.5 L (20.0-40.0) % [place] % (Auto) 12.5 H (0.0-10.0) % Eos % (Auto) 0.2 (0.0-4.0) % Baso % (Auto) 0.3 (0.0-2.0) % Neut # 7.0 (1.8-7.0) K/uL Lymph # 1.0 (1.0-4.3) K/uL [place] # 1.2 H (0.0-0.8) K/uL Eos # 0.0 (0.0-0.7) K/uL Baso # 0.0 (0.0-0.2) K/uL Differential Comment Puncture Site pCO2 (35-45) mm/Hg pO2 (80-100) mm/Hg HCO3 (21-28) mmol/L ABG pH (7.35-7.45) ABG Total CO2 (22-28) mmol/L ABG O2 Saturation (95-98) % ABG Base Excess (-2.0-3.0) mmol/L ABG Hemoglobin (11.7-17.4) g/dL ABG Carboxyhemoglobin (0.5-1.5) % POC ABG HHb (Measured) (0.0-5.0) % ABG Methemoglobin (0.0-3.0) % Guy Test A-a O2 Difference mm/Hg Respiratory Index Hgb O2 Saturation (95.0-98.0) % Vent Mode Mechanical Rate FiO2 % Tidal Volume PEEP Sodium 154 H (132-148) mmol/L Potassium 3.8 (3.6-5.2) mmol/L Chloride 118 H (98-107) mmol/L Carbon Dioxide 23 (22-30) mmol/L Anion Gap 17 (10-20) BUN 81 H (7-17) mg/dL Creatinine 2.1 H (0.7-1.2) mg/dL Est GFR ( Amer) 27 Est GFR (Non-Af Amer) 23 POC Glucose (mg/dL) 203 H (65-110) mg/dL Random Glucose 179 H (65-105) mg/dL Calcium 8.4 L (8.6-10.4) mg/dl Phosphorus 3.3 (2.5-4.5) mg/dL Magnesium 2.2 (1.6-2.3) mg/dL Total Bilirubin 0.6 (0.2-1.3) mg/dL AST 48 H (14-36) U/L ALT 39 (9-52) U/L Alkaline Phosphatase 53 (38-126) U/L Total Protein 5.2 L (6.3-8.3) g/dL Albumin 2.8 L (3.5-5.0) g/dL Globulin 2.5 (2.2-3.9) gm/dL Albumin/Globulin Ratio 1.1 (1.0-2.1) 09/22/17 09/22/17 09/21/17 Range/Units 05:31 05:18 23:37 WBC (4.8-10.8) K/uL RBC (3.80-5.20) Mil/uL Hgb (11.0-16.0) g/dL Hct (34.0-47.0) % MCV (81.0-99.0) fL MCH (27.0-31.0) pg MCHC (33.0-37.0) g/dL RDW (11.5-14.5) % Plt Count (130-400) K/uL MPV (7.2-11.7) fL Neut % (Auto) (50.0-75.0) % Lymph % (Auto) (20.0-40.0) % [place] % (Auto) (0.0-10.0) % Eos % (Auto) (0.0-4.0) % Baso % (Auto) (0.0-2.0) % Neut # (1.8-7.0) K/uL Lymph # (1.0-4.3) K/uL [place] # (0.0-0.8) K/uL Eos # (0.0-0.7) K/uL Baso # (0.0-0.2) K/uL Differential Comment Puncture Site Rr pCO2 33 L (35-45) mm/Hg pO2 159 H (80-100) mm/Hg HCO3 23.4 (21-28) mmol/L ABG pH 7.43 (7.35-7.45) ABG Total CO2 22.9 (22-28) mmol/L ABG O2 Saturation 98.0 (95-98) % ABG Base Excess -2.0 (-2.0-3.0) mmol/L ABG Hemoglobin 8.4 L (11.7-17.4) g/dL ABG Carboxyhemoglobin 0.8 (0.5-1.5) % POC ABG HHb (Measured) 2.0 (0.0-5.0) % ABG Methemoglobin 0.6 (0.0-3.0) % Guy Test Pos A-a O2 Difference 156.0 mm/Hg Respiratory Index 1.0 Hgb O2 Saturation 96.5 (95.0-98.0) % Vent Mode Prvc Mechanical Rate 14 FiO2 50.0 % Tidal Volume 400 PEEP 5 Sodium (132-148) mmol/L Potassium (3.6-5.2) mmol/L Chloride (98-107) mmol/L Carbon Dioxide (22-30) mmol/L Anion Gap (10-20) BUN (7-17) mg/dL Creatinine (0.7-1.2) mg/dL Est GFR ( Amer) Est GFR (Non-Af Amer) POC Glucose (mg/dL) 246 H 265 H (65-110) mg/dL Random Glucose (65-105) mg/dL Calcium (8.6-10.4) mg/dl Phosphorus (2.5-4.5) mg/dL Magnesium (1.6-2.3) mg/dL Total Bilirubin (0.2-1.3) mg/dL AST (14-36) U/L ALT (9-52) U/L Alkaline Phosphatase (38-126) U/L Total Protein (6.3-8.3) g/dL Albumin (3.5-5.0) g/dL Globulin (2.2-3.9) gm/dL Albumin/Globulin Ratio (1.0-2.1) 09/21/17 09/21/17 Range/Units 17:35 17:12 WBC (4.8-10.8) K/uL RBC (3.80-5.20) Mil/uL Hgb (11.0-16.0) g/dL Hct (34.0-47.0) % MCV (81.0-99.0) fL MCH (27.0-31.0) pg MCHC (33.0-37.0) g/dL RDW (11.5-14.5) % Plt Count (130-400) K/uL MPV (7.2-11.7) fL Neut % (Auto) (50.0-75.0) % Lymph % (Auto) (20.0-40.0) % [place] % (Auto) (0.0-10.0) % Eos % (Auto) (0.0-4.0) % Baso % (Auto) (0.0-2.0) % Neut # (1.8-7.0) K/uL Lymph # (1.0-4.3) K/uL [place] # (0.0-0.8) K/uL Eos # (0.0-0.7) K/uL Baso # (0.0-0.2) K/uL Differential Comment Puncture Site Rra pCO2 43 (35-45) mm/Hg pO2 312 H (80-100) mm/Hg HCO3 23.0 (21-28) mmol/L ABG pH 7.34 L (7.35-7.45) ABG Total CO2 24.5 (22-28) mmol/L ABG O2 Saturation 98.0 (95-98) % ABG Base Excess -2.5 L (-2.0-3.0) mmol/L ABG Hemoglobin 8.7 L (11.7-17.4) g/dL ABG Carboxyhemoglobin 0.5 (0.5-1.5) % POC ABG HHb (Measured) 2.0 (0.0-5.0) % ABG Methemoglobin 0.6 (0.0-3.0) % Guy Test Na A-a O2 Difference 347.0 mm/Hg Respiratory Index 1.1 Hgb O2 Saturation 96.9 (95.0-98.0) % Vent Mode Prvc Mechanical Rate 14 FiO2 100.0 % Tidal Volume 400 PEEP 5 Sodium (132-148) mmol/L Potassium (3.6-5.2) mmol/L Chloride (98-107) mmol/L Carbon Dioxide (22-30) mmol/L Anion Gap (10-20) BUN (7-17) mg/dL Creatinine (0.7-1.2) mg/dL Est GFR ( Amer) Est GFR (Non-Af Amer) POC Glucose (mg/dL) 173 H (65-110) mg/dL Random Glucose (65-105) mg/dL Calcium (8.6-10.4) mg/dl Phosphorus (2.5-4.5) mg/dL Magnesium (1.6-2.3) mg/dL Total Bilirubin (0.2-1.3) mg/dL AST (14-36) U/L ALT (9-52) U/L Alkaline Phosphatase (38-126) U/L Total Protein (6.3-8.3) g/dL Albumin (3.5-5.0) g/dL Globulin (2.2-3.9) gm/dL Albumin/Globulin Ratio (1.0-2.1) Laboratory Results - last 24 hr 09/21/17 09/21/17 09/21/17 17:12 17:35 23:37 WBC RBC Hgb Hct MCV MCH MCHC RDW Plt Count MPV Neut % (Auto) Lymph % (Auto) [place] % (Auto) Eos % (Auto) Baso % (Auto) Neut # Lymph # [place] # Eos # Baso # Differential Comment Puncture Site Rra pCO2 43 pO2 312 H HCO3 23.0 ABG pH 7.34 L ABG Total CO2 24.5 ABG O2 Saturation 98.0 ABG Base Excess -2.5 L ABG Hemoglobin 8.7 L ABG Carboxyhemoglobin 0.5 POC ABG HHb (Measured) 2.0 ABG Methemoglobin 0.6 Guy Test Na A-a O2 Difference 347.0 Respiratory Index 1.1 Hgb O2 Saturation 96.9 Vent Mode Prvc Mechanical Rate 14 FiO2 100.0 Tidal Volume 400 PEEP 5 Sodium Potassium Chloride Carbon Dioxide Anion Gap BUN Creatinine Est GFR ( Amer) Est GFR (Non-Af Amer) POC Glucose (mg/dL) 173 H 265 H Random Glucose Calcium Phosphorus Magnesium Total Bilirubin AST ALT Alkaline Phosphatase Total Protein Albumin Globulin Albumin/Globulin Ratio 09/22/17 09/22/17 09/22/17 05:18 05:31 06:20 WBC 9.2 RBC 3.42 L Hgb 8.4 L Hct 26.5 L MCV 77.5 L MCH 24.6 L MCHC 31.7 L RDW 19.4 H Plt Count 244 MPV 9.3 Neut % (Auto) 76.5 H Lymph % (Auto) 10.5 L [place] % (Auto) 12.5 H Eos % (Auto) 0.2 Baso % (Auto) 0.3 Neut # 7.0 Lymph # 1.0 [place] # 1.2 H Eos # 0.0 Baso # 0.0 Differential Comment Puncture Site Rr pCO2 33 L pO2 159 H HCO3 23.4 ABG pH 7.43 ABG Total CO2 22.9 ABG O2 Saturation 98.0 ABG Base Excess -2.0 ABG Hemoglobin 8.4 L ABG Carboxyhemoglobin 0.8 POC ABG HHb (Measured) 2.0 ABG Methemoglobin 0.6 Guy Test Pos A-a O2 Difference 156.0 Respiratory Index 1.0 Hgb O2 Saturation 96.5 Vent Mode Prvc Mechanical Rate 14 FiO2 50.0 Tidal Volume 400 PEEP 5 Sodium Potassium Chloride Carbon Dioxide Anion Gap BUN Creatinine Est GFR ( Amer) Est GFR (Non-Af Amer) POC Glucose (mg/dL) 246 H Random Glucose Calcium Phosphorus Magnesium Total Bilirubin AST ALT Alkaline Phosphatase Total Protein Albumin Globulin Albumin/Globulin Ratio 09/22/17 09/22/17 06:20 11:34 WBC RBC Hgb Hct MCV MCH MCHC RDW Plt Count MPV Neut % (Auto) Lymph % (Auto) [place] % (Auto) Eos % (Auto) Baso % (Auto) Neut # Lymph # [place] # Eos # Baso # Differential Comment Puncture Site pCO2 pO2 HCO3 ABG pH ABG Total CO2 ABG O2 Saturation ABG Base Excess ABG Hemoglobin ABG Carboxyhemoglobin POC ABG HHb (Measured) ABG Methemoglobin Guy Test A-a O2 Difference Respiratory Index Hgb O2 Saturation Vent Mode Mechanical Rate FiO2 Tidal Volume PEEP Sodium 154 H Potassium 3.8 Chloride 118 H Carbon Dioxide 23 Anion Gap 17 BUN 81 H Creatinine 2.1 H Est GFR ( Amer) 27 Est GFR (Non-Af Amer) 23 POC Glucose (mg/dL) 203 H Random Glucose 179 H Calcium 8.4 L Phosphorus 3.3 Magnesium 2.2 Total Bilirubin 0.6 AST 48 H ALT 39 Alkaline Phosphatase 53 Total Protein 5.2 L Albumin 2.8 L Globulin 2.5 Albumin/Globulin Ratio 1.1 Fingerstick Blood Sugar Results: 203 Review of Systems - Review of Systems Systems not reviewed;Unavailable: Intubated Critical Care Progress Note - Nutrition Nutrition: Nutrition Category Date Time Status NPO Diet [DIET] Diets 09/20/17 Dinner Active Assessment/Plan - Assessment and Plan (Free Text) Assessment: Patient is an 81 year old female presenting with NSTEMI, acute renal failure and acute hypoxemic respiratory failure. Plan: Cardio: Cardio consult, Dr. Dunbar, help appreciated ECHO 09/10 - EF 50-55%, anterior and apical septum hypokinetic; MR mod.-severe ; TR mod.; Pulmonary HTN mod-severe repeat ECHO 09/22 - awaiting official report BP controlled Trop increased to 3.78 (09/20) - on admission 09/10 - 0.646/0.485/0.551/1.030 Aspirin 81mg PO daily Crestor 2.5 mg PO HS due to second jump of trop on 09/20, second NSTEMI suspected. Cardio recs - Will plan for heart cath tomorrow Respiratory: Intubation ABG - pCO2 33/pO2 159/HCO3 23.4/pH 7.43 - vent settings at 400/50/14/5 CXR 09/22 - Lines and tubes in stable position. Moderate venous congestion. Right hilar prominence. Patchy increased markings at the right lung base. Blunted bilateral costophrenic angles which may represent trace effusions. Mild cardiomegaly. Duoneb 3mL INH q4h Neuro: Propofol drip Renal: Nephro consult, Dr. Alatorre, help appreciated Cr 2.1 from 2.4 BUN worsening 81 from 77 Dialysis cath in right femoral - will plan for hemo-dialysis tomorrow after hearth cath D5W @ 50ml/hr GI: OGT On [facility] tube feedings ISS Prophylactic Care: Heparin 5000u SC q8h Protonix 40mg IVP daily Case discussed with Dr. Jannette Denton Mary Alice PGY1 <Leonardo Bhatia - Last Filed: 09/22/17 18:15> CCU Objective - Vital Signs / Intake & Output Vital Signs (Last 4 hours): Vital Signs Temp Pulse Resp BP Pulse Ox 09/22/17 16:58 116 H 29 H 122/65 100 09/22/17 16:00 99.0 F 100 09/22/17 15:24 101 H 18 127/47 L 100 09/22/17 14:24 105 H 25 H 134/52 L 100 Intake and Output (Last 8hrs): Intake & Output 09/22/17 09/22/17 09/22/17 06:59 14:59 22:59 Intake Total 684.2 632.8 147.6 Output Total 560 425 100 Balance 124.2 207.8 47.6 Weight 96 lb Intake: IV 3.8 15 Intake, IV Amount 680.4 477.8 107.6 Right PICC #1 30.4 27.8 7.6 Right PICC #2 650 450 100 Tube Feeding 140 40 Output: Urine 560 425 100 Urethral (Garcia) 560 425 100 Other: # Bowel Movements 0 1 - Medications Active Medications: Active Medications Generic Name Dose Route Start Last Admin Trade Name Freq PRN Reason Stop Dose Admin Albuterol/Ipratropium 3 ml 09/20/17 12:00 09/22/17 14:35 Duoneb 3 Mg/0.5 Mg (3 Ml) Ud INH 3 ml RQ4 GLADYS Administration Aspirin 81 mg 09/22/17 10:15 09/22/17 10:21 Aspirin Chewable PO 81 mg DAILY GLADYS Administration Dextrose 0 ml 09/10/17 17:21 Dextrose 50% Inj IV STAT PRN Hypoglycemia Protocol Protocol Dextrose 0 gm 09/10/17 17:21 Glutose 15 PO ONCE PRN Hypoglycemia Protocol Protocol Epoetin Sarath 10,000 unit 09/15/17 10:00 09/22/17 10:18 Procrit SC 10,000 unit TTS GLADYS Administration Furosemide 40 mg 09/22/17 09:32 Lasix IVP BID GLADYS Glucagon 0 mg 09/10/17 17:21 Glucagen Diagnostic Kit IM STAT PRN Hypoglycemia Protocol Protocol Heparin Sodium (Porcine) 5,000 units 09/20/17 22:00 09/22/17 13:50 Heparin SC 5,000 units Q8 GLADYS Administration Dextrose 1,000 mls @ 0 mls/hr 09/10/17 17:21 Dextrose 5% In Water 1000 Ml IV .Q0M PRN Hypoglycemia Protocol Protocol Per Protocol Dextrose 1,000 mls @ 50 mls/hr 09/22/17 09:45 09/22/17 09:48 Dextrose 5% In Water 1000 Ml IV 50 mls/hr .Q20H GLADYS Administration Propofol 1,000 mg in 100 mls @ 1.306 mls/hr 09/22/17 12:24 Diprivan IV .Q24H PRN TITRATE PER MD ORDER Protocol 5 MCG/KG/MIN Insulin Aspart 0 unit 09/16/17 00:00 09/22/17 13:45 Novolog SC 2 unit Q6 GLADYS Administration Protocol Ondansetron HCl 4 mg 09/10/17 17:00 09/13/17 11:01 Zofran Inj IVP 4 mg Q6 PRN Administration Nausea/Vomiting Pantoprazole Sodium 40 mg 09/11/17 10:00 09/22/17 09:53 Protonix Inj IVP 40 mg DAILY GLADYS Administration Rosuvastatin Calcium 2.5 mg 09/10/17 22:00 09/21/17 21:58 Crestor PO 2.5 mg HS GLADYS Administration - Patient Studies Lab Studies: Lab Studies 09/22/17 09/22/17 09/22/17 Range/Units 17:47 11:34 06:20 WBC (4.8-10.8) K/uL RBC (3.80-5.20) Mil/uL Hgb (11.0-16.0) g/dL Hct (34.0-47.0) % MCV (81.0-99.0) fL MCH (27.0-31.0) pg MCHC (33.0-37.0) g/dL RDW (11.5-14.5) % Plt Count (130-400) K/uL MPV (7.2-11.7) fL Neut % (Auto) (50.0-75.0) % Lymph % (Auto) (20.0-40.0) % [place] % (Auto) (0.0-10.0) % Eos % (Auto) (0.0-4.0) % Baso % (Auto) (0.0-2.0) % Neut # (1.8-7.0) K/uL Lymph # (1.0-4.3) K/uL [place] # (0.0-0.8) K/uL Eos # (0.0-0.7) K/uL Baso # (0.0-0.2) K/uL Differential Comment Puncture Site pCO2 (35-45) mm/Hg pO2 (80-100) mm/Hg HCO3 (21-28) mmol/L ABG pH (7.35-7.45) ABG Total CO2 (22-28) mmol/L ABG O2 Saturation (95-98) % ABG Base Excess (-2.0-3.0) mmol/L ABG Hemoglobin (11.7-17.4) g/dL ABG Carboxyhemoglobin (0.5-1.5) % POC ABG HHb (Measured) (0.0-5.0) % ABG Methemoglobin (0.0-3.0) % Guy Test A-a O2 Difference mm/Hg Respiratory Index Hgb O2 Saturation (95.0-98.0) % Vent Mode Mechanical Rate FiO2 % Tidal Volume PEEP Sodium 154 H (132-148) mmol/L Potassium 3.8 (3.6-5.2) mmol/L Chloride 118 H (98-107) mmol/L Carbon Dioxide 23 (22-30) mmol/L Anion Gap 17 (10-20) BUN 81 H (7-17) mg/dL Creatinine 2.1 H (0.7-1.2) mg/dL Est GFR ( Amer) 27 Est GFR (Non-Af Amer) 23 POC Glucose (mg/dL) 322 H 203 H (65-110) mg/dL Random Glucose 179 H (65-105) mg/dL Calcium 8.4 L (8.6-10.4) mg/dl Phosphorus 3.3 (2.5-4.5) mg/dL Magnesium 2.2 (1.6-2.3) mg/dL Total Bilirubin 0.6 (0.2-1.3) mg/dL AST 48 H (14-36) U/L ALT 39 (9-52) U/L Alkaline Phosphatase 53 (38-126) U/L Total Protein 5.2 L (6.3-8.3) g/dL Albumin 2.8 L (3.5-5.0) g/dL Globulin 2.5 (2.2-3.9) gm/dL Albumin/Globulin Ratio 1.1 (1.0-2.1) 09/22/17 09/22/17 09/22/17 Range/Units 06:20 05:31 05:18 WBC 9.2 (4.8-10.8) K/uL RBC 3.42 L (3.80-5.20) Mil/uL Hgb 8.4 L (11.0-16.0) g/dL Hct 26.5 L (34.0-47.0) % MCV 77.5 L (81.0-99.0) fL MCH 24.6 L (27.0-31.0) pg MCHC 31.7 L (33.0-37.0) g/dL RDW 19.4 H (11.5-14.5) % Plt Count 244 (130-400) K/uL MPV 9.3 (7.2-11.7) fL Neut % (Auto) 76.5 H (50.0-75.0) % Lymph % (Auto) 10.5 L (20.0-40.0) % [place] % (Auto) 12.5 H (0.0-10.0) % Eos % (Auto) 0.2 (0.0-4.0) % Baso % (Auto) 0.3 (0.0-2.0) % Neut # 7.0 (1.8-7.0) K/uL Lymph # 1.0 (1.0-4.3) K/uL [place] # 1.2 H (0.0-0.8) K/uL Eos # 0.0 (0.0-0.7) K/uL Baso # 0.0 (0.0-0.2) K/uL Differential Comment Puncture Site Rr pCO2 33 L (35-45) mm/Hg pO2 159 H (80-100) mm/Hg HCO3 23.4 (21-28) mmol/L ABG pH 7.43 (7.35-7.45) ABG Total CO2 22.9 (22-28) mmol/L ABG O2 Saturation 98.0 (95-98) % ABG Base Excess -2.0 (-2.0-3.0) mmol/L ABG Hemoglobin 8.4 L (11.7-17.4) g/dL ABG Carboxyhemoglobin 0.8 (0.5-1.5) % POC ABG HHb (Measured) 2.0 (0.0-5.0) % ABG Methemoglobin 0.6 (0.0-3.0) % Guy Test Pos A-a O2 Difference 156.0 mm/Hg Respiratory Index 1.0 Hgb O2 Saturation 96.5 (95.0-98.0) % Vent Mode Prvc Mechanical Rate 14 FiO2 50.0 % Tidal Volume 400 PEEP 5 Sodium (132-148) mmol/L Potassium (3.6-5.2) mmol/L Chloride (98-107) mmol/L Carbon Dioxide (22-30) mmol/L Anion Gap (10-20) BUN (7-17) mg/dL Creatinine (0.7-1.2) mg/dL Est GFR ( Amer) Est GFR (Non-Af Amer) POC Glucose (mg/dL) 246 H (65-110) mg/dL Random Glucose (65-105) mg/dL Calcium (8.6-10.4) mg/dl Phosphorus (2.5-4.5) mg/dL Magnesium (1.6-2.3) mg/dL Total Bilirubin (0.2-1.3) mg/dL AST (14-36) U/L ALT (9-52) U/L Alkaline Phosphatase (38-126) U/L Total Protein (6.3-8.3) g/dL Albumin (3.5-5.0) g/dL Globulin (2.2-3.9) gm/dL Albumin/Globulin Ratio (1.0-2.1) 09/21/17 Range/Units 23:37 WBC (4.8-10.8) K/uL RBC (3.80-5.20) Mil/uL Hgb (11.0-16.0) g/dL Hct (34.0-47.0) % MCV (81.0-99.0) fL MCH (27.0-31.0) pg MCHC (33.0-37.0) g/dL RDW (11.5-14.5) % Plt Count (130-400) K/uL MPV (7.2-11.7) fL Neut % (Auto) (50.0-75.0) % Lymph % (Auto) (20.0-40.0) % [place] % (Auto) (0.0-10.0) % Eos % (Auto) (0.0-4.0) % Baso % (Auto) (0.0-2.0) % Neut # (1.8-7.0) K/uL Lymph # (1.0-4.3) K/uL [place] # (0.0-0.8) K/uL Eos # (0.0-0.7) K/uL Baso # (0.0-0.2) K/uL Differential Comment Puncture Site pCO2 (35-45) mm/Hg pO2 (80-100) mm/Hg HCO3 (21-28) mmol/L ABG pH (7.35-7.45) ABG Total CO2 (22-28) mmol/L ABG O2 Saturation (95-98) % ABG Base Excess (-2.0-3.0) mmol/L ABG Hemoglobin (11.7-17.4) g/dL ABG Carboxyhemoglobin (0.5-1.5) % POC ABG HHb (Measured) (0.0-5.0) % ABG Methemoglobin (0.0-3.0) % Guy Test A-a O2 Difference mm/Hg Respiratory Index Hgb O2 Saturation (95.0-98.0) % Vent Mode Mechanical Rate FiO2 % Tidal Volume PEEP Sodium (132-148) mmol/L Potassium (3.6-5.2) mmol/L Chloride (98-107) mmol/L Carbon Dioxide (22-30) mmol/L Anion Gap (10-20) BUN (7-17) mg/dL Creatinine (0.7-1.2) mg/dL Est GFR ( Amer) Est GFR (Non-Af Amer) POC Glucose (mg/dL) 265 H (65-110) mg/dL Random Glucose (65-105) mg/dL Calcium (8.6-10.4) mg/dl Phosphorus (2.5-4.5) mg/dL Magnesium (1.6-2.3) mg/dL Total Bilirubin (0.2-1.3) mg/dL AST (14-36) U/L ALT (9-52) U/L Alkaline Phosphatase (38-126) U/L Total Protein (6.3-8.3) g/dL Albumin (3.5-5.0) g/dL Globulin (2.2-3.9) gm/dL Albumin/Globulin Ratio (1.0-2.1) Laboratory Results - last 24 hr 09/21/17 09/22/17 09/22/17 23:37 05:18 05:31 WBC RBC Hgb Hct MCV MCH MCHC RDW Plt Count MPV Neut % (Auto) Lymph % (Auto) [place] % (Auto) Eos % (Auto) Baso % (Auto) Neut # Lymph # [place] # Eos # Baso # Differential Comment Puncture Site Rr pCO2 33 L pO2 159 H HCO3 23.4 ABG pH 7.43 ABG Total CO2 22.9 ABG O2 Saturation 98.0 ABG Base Excess -2.0 ABG Hemoglobin 8.4 L ABG Carboxyhemoglobin 0.8 POC ABG HHb (Measured) 2.0 ABG Methemoglobin 0.6 Guy Test Pos A-a O2 Difference 156.0 Respiratory Index 1.0 Hgb O2 Saturation 96.5 Vent Mode Prvc Mechanical Rate 14 FiO2 50.0 Tidal Volume 400 PEEP 5 Sodium Potassium Chloride Carbon Dioxide Anion Gap BUN Creatinine Est GFR ( Amer) Est GFR (Non-Af Amer) POC Glucose (mg/dL) 265 H 246 H Random Glucose Calcium Phosphorus Magnesium Total Bilirubin AST ALT Alkaline Phosphatase Total Protein Albumin Globulin Albumin/Globulin Ratio 09/22/17 09/22/17 09/22/17 06:20 06:20 11:34 WBC 9.2 RBC 3.42 L Hgb 8.4 L Hct 26.5 L MCV 77.5 L MCH 24.6 L MCHC 31.7 L RDW 19.4 H Plt Count 244 MPV 9.3 Neut % (Auto) 76.5 H Lymph % (Auto) 10.5 L [place] % (Auto) 12.5 H Eos % (Auto) 0.2 Baso % (Auto) 0.3 Neut # 7.0 Lymph # 1.0 [place] # 1.2 H Eos # 0.0 Baso # 0.0 Differential Comment Puncture Site pCO2 pO2 HCO3 ABG pH ABG Total CO2 ABG O2 Saturation ABG Base Excess ABG Hemoglobin ABG Carboxyhemoglobin POC ABG HHb (Measured) ABG Methemoglobin Guy Test A-a O2 Difference Respiratory Index Hgb O2 Saturation Vent Mode Mechanical Rate FiO2 Tidal Volume PEEP Sodium 154 H Potassium 3.8 Chloride 118 H Carbon Dioxide 23 Anion Gap 17 BUN 81 H Creatinine 2.1 H Est GFR ( Amer) 27 Est GFR (Non-Af Amer) 23 POC Glucose (mg/dL) 203 H Random Glucose 179 H Calcium 8.4 L Phosphorus 3.3 Magnesium 2.2 Total Bilirubin 0.6 AST 48 H ALT 39 Alkaline Phosphatase 53 Total Protein 5.2 L Albumin 2.8 L Globulin 2.5 Albumin/Globulin Ratio 1.1 09/22/17 17:47 WBC RBC Hgb Hct MCV MCH MCHC RDW Plt Count MPV Neut % (Auto) Lymph % (Auto) [place] % (Auto) Eos % (Auto) Baso % (Auto) Neut # Lymph # [place] # Eos # Baso # Differential Comment Puncture Site pCO2 pO2 HCO3 ABG pH ABG Total CO2 ABG O2 Saturation ABG Base Excess ABG Hemoglobin ABG Carboxyhemoglobin POC ABG HHb (Measured) ABG Methemoglobin Guy Test A-a O2 Difference Respiratory Index Hgb O2 Saturation Vent Mode Mechanical Rate FiO2 Tidal Volume PEEP Sodium Potassium Chloride Carbon Dioxide Anion Gap BUN Creatinine Est GFR ( Amer) Est GFR (Non-Af Amer) POC Glucose (mg/dL) 322 H Random Glucose Calcium Phosphorus Magnesium Total Bilirubin AST ALT Alkaline Phosphatase Total Protein Albumin Globulin Albumin/Globulin Ratio Critical Care Progress Note - Nutrition Nutrition: Nutrition Category Date Time Status NPO Diet [DIET] Diets 09/20/17 Dinner Active Attending/Attestation - Attestation I have personally seen and examined this patient.: Yes I have fully participated in the care of the patient.: Yes I have reviewed all pertinent clinical information: Yes Notes (Text): 09/22/17 18:13 I have seen and examined the patient. Medical records, lab studies, and imaging were reviewed by me and a management plan was formulated on multidisciplinary rounds with resident Dr. Kyle. I agree with their documented assessment and plan. Patient was reintubated secondary to recurrent NSTEMI. Patient to get cardiac cath tomorrow, followed by dialysis to minimize effect of RUCHI (unproven), but benefit of cardiac cath outweigh risk of RUCHI for a patient with CKD. Once cardiac disease is addressed we can resume extubation efforts. Critical Care Time 35 minutes. Multi-disciplinary rounds were performed with house staff, nursing, speech therapy, respiratory therapy, pharmacy and nutrition with integrated input from the primary team/attending and other consulting services. The documented time is cumulative and includes review of patient data/exams/labs/chart review and examination of the patient on rounds and throughout the day; time is exclusive of any procedures or teaching time.
--- NOTE | 2017-09-22 16:08 | CP.PCM.PN ---
Subjective - Date & Time of Evaluation Date of Evaluation: 09/22/17 Time of Evaluation: 10:30 - Subjective Subjective: the patient seen and examined. Patient reintubated for respiratory distress//pulmonary edema Sedated on Diprivan Stable renal function and urine output Possible cardiac catheter in a.m. Objective - Vital Signs/Intake and Output Vital Signs (last 24 hours): Temp Pulse Resp BP Pulse Ox 98.4 F 105 H 24 135/50 L 100 09/22/17 04:00 09/22/17 11:25 09/22/17 11:25 09/22/17 11:25 09/22/17 11:25 Intake and Output: 09/22/17 09/22/17 06:59 18:59 Intake Total 999.4 780.4 Output Total 560 525 Balance 439.4 255.4 - Medications Medications: Current Medications Albuterol/Ipratropium (Duoneb 3 Mg/0.5 Mg (3 Ml) Ud) 3 ml INH RQ4 [facility] Last Admin: 09/22/17 14:35 Dose: 3 ml Aspirin (Aspirin Chewable) 81 mg PO DAILY [facility] Last Admin: 09/22/17 10:21 Dose: 81 mg Dextrose (Dextrose 50% Inj) 0 ml IV STAT PRN; Protocol PRN Reason: Hypoglycemia Protocol Dextrose (Glutose 15) 0 gm PO ONCE PRN; Protocol PRN Reason: Hypoglycemia Protocol Epoetin Sarath (Procrit) 10,000 unit SC TTS [facility] Last Admin: 09/22/17 10:18 Dose: 10,000 unit Furosemide (Lasix) 40 mg IVP BID [facility] Glucagon (Glucagen Diagnostic Kit) 0 mg IM STAT PRN; Protocol PRN Reason: Hypoglycemia Protocol Heparin Sodium (Porcine) (Heparin) 5,000 units SC Q8 [facility] Last Admin: 09/22/17 13:50 Dose: 5,000 units Dextrose (Dextrose 5% In Water 1000 Ml) 1,000 mls @ 0 mls/hr IV .Q0M PRN; Protocol; Per Protocol PRN Reason: Hypoglycemia Protocol Cefazolin Sodium 500 mg/ (Dextrose) 50 mls @ 100 mls/hr IVPB Q8H [facility] Last Admin: 09/22/17 09:48 Dose: 100 mls/hr Dextrose (Dextrose 5% In Water 1000 Ml) 1,000 mls @ 50 mls/hr IV .Q20H [facility] Last Admin: 09/22/17 09:48 Dose: 50 mls/hr Propofol (Diprivan) 1,000 mg in 100 mls @ 1.306 mls/hr IV .Q24H PRN; Protocol; 5 MCG/KG/MIN PRN Reason: TITRATE PER MD ORDER Insulin Aspart (Novolog) 0 unit SC Q6 [facility] PRN Reason: Protocol Last Admin: 09/22/17 13:45 Dose: 2 unit Ondansetron HCl (Zofran Inj) 4 mg IVP Q6 PRN PRN Reason: Nausea/Vomiting Last Admin: 09/13/17 11:01 Dose: 4 mg Pantoprazole Sodium (Protonix Inj) 40 mg IVP DAILY [facility] Last Admin: 09/22/17 09:53 Dose: 40 mg Rosuvastatin Calcium (Crestor) 2.5 mg PO HS [facility] Last Admin: 09/21/17 21:58 Dose: 2.5 mg - Labs Labs: 09/22/17 06:20 09/22/17 06:20 PT 10.3 SECONDS (9.7-12.2) 09/10/17 13:52 INR 0.9 09/10/17 13:52 APTT 34 SECONDS (21-34) 09/10/17 13:52 - Head Exam Head Exam: ATRAUMATIC, NORMOCEPHALIC - ENT Exam ENT Exam: Mucous Membranes Moist - Neck Exam Neck Exam: Normal Inspection - Respiratory Exam Respiratory Exam: Rales - Cardiovascular Exam Cardiovascular Exam: REGULAR RHYTHM - GI/Abdominal Exam GI & Abdominal Exam: Soft, Normal Bowel Sounds - Extremities Exam Extremities Exam: Normal Inspection Assessment and Plan (1) Hypercapnic respiratory failure Assessment & Plan: Continue ventilatory suppor Continue IV fluids Lasix on hold Possible cardiac catheter in a.m. Consider to start IV steroids for swelling of the vocal cords Status: Acute (2) CKD (chronic kidney disease) stage 4, GFR 15-29 ml/min Status: Acute
--- NOTE | 2017-09-22 18:25 | CP.PCM.PN ---
Subjective - Date & Time of Evaluation Date of Evaluation: 09/22/17 Time of Evaluation: 08:00 - Subjective Subjective: reintubated for respiratory distress//pulmonary edema Sedated Objective - Vital Signs/Intake and Output Vital Signs (last 24 hours): Temp Pulse Resp BP Pulse Ox 99.0 F 116 H 29 H 122/65 100 09/22/17 16:00 09/22/17 16:58 09/22/17 16:58 09/22/17 16:58 09/22/17 16:58 Intake and Output: 09/22/17 09/22/17 06:59 18:59 Intake Total 999.4 780.4 Output Total 560 525 Balance 439.4 255.4 - Medications Medications: Current Medications Albuterol/Ipratropium (Duoneb 3 Mg/0.5 Mg (3 Ml) Ud) 3 ml INH RQ4 [facility] Last Admin: 09/22/17 14:35 Dose: 3 ml Aspirin (Aspirin Chewable) 81 mg PO DAILY [facility] Last Admin: 09/22/17 10:21 Dose: 81 mg Dextrose (Dextrose 50% Inj) 0 ml IV STAT PRN; Protocol PRN Reason: Hypoglycemia Protocol Dextrose (Glutose 15) 0 gm PO ONCE PRN; Protocol PRN Reason: Hypoglycemia Protocol Epoetin Sarath (Procrit) 10,000 unit SC TTS [facility] Last Admin: 09/22/17 10:18 Dose: 10,000 unit Furosemide (Lasix) 40 mg IVP BID [facility] Glucagon (Glucagen Diagnostic Kit) 0 mg IM STAT PRN; Protocol PRN Reason: Hypoglycemia Protocol Heparin Sodium (Porcine) (Heparin) 5,000 units SC Q8 [facility] Last Admin: 09/22/17 13:50 Dose: 5,000 units Dextrose (Dextrose 5% In Water 1000 Ml) 1,000 mls @ 0 mls/hr IV .Q0M PRN; Protocol; Per Protocol PRN Reason: Hypoglycemia Protocol Dextrose (Dextrose 5% In Water 1000 Ml) 1,000 mls @ 50 mls/hr IV .Q20H [facility] Last Admin: 09/22/17 09:48 Dose: 50 mls/hr Propofol (Diprivan) 1,000 mg in 100 mls @ 1.306 mls/hr IV .Q24H PRN; Protocol; 5 MCG/KG/MIN PRN Reason: TITRATE PER MD ORDER Insulin Aspart (Novolog) 0 unit SC Q6 [facility] PRN Reason: Protocol Last Admin: 09/22/17 13:45 Dose: 2 unit Ondansetron HCl (Zofran Inj) 4 mg IVP Q6 PRN PRN Reason: Nausea/Vomiting Last Admin: 09/13/17 11:01 Dose: 4 mg Pantoprazole Sodium (Protonix Inj) 40 mg IVP DAILY [facility] Last Admin: 09/22/17 09:53 Dose: 40 mg Rosuvastatin Calcium (Crestor) 2.5 mg PO HS [facility] Last Admin: 09/21/17 21:58 Dose: 2.5 mg - Labs Labs: 09/22/17 06:20 09/22/17 06:20 PT 10.3 SECONDS (9.7-12.2) 09/10/17 13:52 INR 0.9 09/10/17 13:52 APTT 34 SECONDS (21-34) 09/10/17 13:52 - Constitutional Appears: Non-toxic, Chronically Ill - Head Exam Head Exam: NORMOCEPHALIC - Eye Exam Eye Exam: PERRL. absent: Scleral icterus - ENT Exam ENT Exam: Mucous Membranes Dry - Neck Exam Neck Exam: absent: Lymphadenopathy - Respiratory Exam Respiratory Exam: Decreased Breath Sounds - Cardiovascular Exam Cardiovascular Exam: REGULAR RHYTHM - GI/Abdominal Exam GI & Abdominal Exam: Distended, Soft - Rectal Exam Rectal Exam: Deferred - Exam Exam: NORMAL INSPECTION - Extremities Exam Extremities Exam: absent: Pedal Edema - Back Exam Back Exam: absent: CVA tenderness (L), CVA tenderness (R) - Neurological Exam Neurological Exam: Alert, Awake Assessment and Plan (1) BERYL (acute kidney injury) Status: Acute (2) Acute renal failure Status: Acute (3) CHF (congestive heart failure) Status: Acute (4) CKD (chronic kidney disease) stage 4, GFR 15-29 ml/min Status: Acute (5) Elevated brain natriuretic peptide (BNP) level Status: Acute (6) Hypotension Status: Acute (7) Non-STEMI (non-ST elevated myocardial infarction) Status: Acute
--- NOTE | 2017-09-22 19:00 | CP.PCM.PN ---
Subjective - Date & Time of Evaluation Date of Evaluation: 09/22/17 Time of Evaluation: 17:25 - Subjective Subjective: Medical Attending Note I spoke with extensively with family at bedside. Patient seen and examined at bedside. Patient is currently intubated. Unable to review ROS secondary to clinical condition. I spoke with patient's family members extensively last night. Patient is unmarried, has no children, but has big extended family, 4 sisters and 2 brothers. At bedside, patient's niece, Narcisa assisting in translation (German to Chinese) at bedside. I explained to family patient has risk factors (diabetes , and hypertension) for coronary artery disease to lead to heart attack, congestive heart failure, renal failure, and that patient is receiving IV abx for pneumonia. Objective - Vital Signs/Intake and Output Vital Signs (last 24 hours): Temp Pulse Resp BP Pulse Ox 99.0 F 116 H 29 H 122/65 100 09/22/17 16:00 09/22/17 16:58 09/22/17 16:58 09/22/17 16:58 09/22/17 16:58 Intake and Output: 09/22/17 09/22/17 06:59 18:59 Intake Total 999.4 805.4 Output Total 560 525 Balance 439.4 280.4 - Medications Medications: Current Medications Albuterol/Ipratropium (Duoneb 3 Mg/0.5 Mg (3 Ml) Ud) 3 ml INH RQ4 [facility] Last Admin: 09/22/17 14:35 Dose: 3 ml Aspirin (Aspirin Chewable) 81 mg PO DAILY [facility] Last Admin: 09/22/17 10:21 Dose: 81 mg Dextrose (Dextrose 50% Inj) 0 ml IV STAT PRN; Protocol PRN Reason: Hypoglycemia Protocol Dextrose (Glutose 15) 0 gm PO ONCE PRN; Protocol PRN Reason: Hypoglycemia Protocol Epoetin Sarath (Procrit) 10,000 unit SC TTS [facility] Last Admin: 09/22/17 10:18 Dose: 10,000 unit Furosemide (Lasix) 40 mg IVP BID [facility] Glucagon (Glucagen Diagnostic Kit) 0 mg IM STAT PRN; Protocol PRN Reason: Hypoglycemia Protocol Heparin Sodium (Porcine) (Heparin) 5,000 units SC Q8 [facility] Last Admin: 09/22/17 13:50 Dose: 5,000 units Dextrose (Dextrose 5% In Water 1000 Ml) 1,000 mls @ 0 mls/hr IV .Q0M PRN; Protocol; Per Protocol PRN Reason: Hypoglycemia Protocol Dextrose (Dextrose 5% In Water 1000 Ml) 1,000 mls @ 50 mls/hr IV .Q20H [facility] Last Admin: 09/22/17 09:48 Dose: 50 mls/hr Propofol (Diprivan) 1,000 mg in 100 mls @ 1.306 mls/hr IV .Q24H PRN; Protocol; 5 MCG/KG/MIN PRN Reason: TITRATE PER MD ORDER Last Titration: 09/22/17 14:00 Dose: 15 mcg/kg/min, 3.919 mls/hr Insulin Aspart (Novolog) 0 unit SC Q6 [facility] PRN Reason: Protocol Last Admin: 09/22/17 18:28 Dose: 4 unit Ondansetron HCl (Zofran Inj) 4 mg IVP Q6 PRN PRN Reason: Nausea/Vomiting Last Admin: 09/13/17 11:01 Dose: 4 mg Pantoprazole Sodium (Protonix Inj) 40 mg IVP DAILY [facility] Last Admin: 09/22/17 09:53 Dose: 40 mg Rosuvastatin Calcium (Crestor) 2.5 mg PO HS [facility] Last Admin: 09/21/17 21:58 Dose: 2.5 mg - Labs Labs: 09/22/17 06:20 09/22/17 06:20 PT 10.3 SECONDS (9.7-12.2) 09/10/17 13:52 INR 0.9 09/10/17 13:52 APTT 34 SECONDS (21-34) 09/10/17 13:52 - Constitutional Appears: Older Than Stated Age, Chronically Ill - Head Exam Head Exam: NORMAL INSPECTION Additional comments: intubated - ENT Exam ENT Exam: Mucous Membranes Moist - Respiratory Exam Respiratory Exam: Decreased Breath Sounds, Rales - Cardiovascular Exam Cardiovascular Exam: Tachycardia, +S1, +S2 - GI/Abdominal Exam GI & Abdominal Exam: Soft, Normal Bowel Sounds. absent: Distended, Firm, Guarding, Rigid, Tenderness, Rebound - Neurological Exam Additional comments: intubated - Skin Skin Exam: Dry, Intact, Normal Color, Warm Assessment and Plan (1) Acute renal failure Status: Acute (2) Non-STEMI (non-ST elevated myocardial infarction) Status: Acute (3) Diabetes Status: Chronic (4) Hypotension Status: Acute (5) Hypertension Status: Chronic (6) Anemia Status: Chronic (7) Elevated brain natriuretic peptide (BNP) level Status: Acute (8) Polypharmacy Status: Acute (9) Pneumonia Status: Suspected (10) Vertigo Status: Acute (11) Prophylactic measure Status: Acute Attending/Attestation - Attestation I have personally seen and examined this patient.: Yes I have fully participated in the care of the patient.: Yes I have reviewed all pertinent clinical information, including history, physical exam and plan: Yes Notes (Text): Patient seen, examined, and case discussed with family, nephrology and critical care. Patient is scheduled for cardiac cath and dialysis to follow for 09/23/17. Patient is currently intubated. I Spoke with family extensively last night in regards to patient's current status and comorbidities including diabetes, hypertension, and pneumonia with assistance of Narcisa, patient's other niece assisting in translation. Palliative care consult for goals of care. patient comes from family of 6 siblings. Patient is not has not children on her own. She is the oldest of her siblings and mother type figure. Patient lives with one of her sisters, and her niece, Caitlin has designated as the key person for the patient. Assessment/Plan (1) Acute Renal Failure and Electrolyte Imbalance Assessment & Plan: * Nephrology Dr. Chowdhury/Landry is following-->help appreciated * Order for cui and monitor output 09/20 * Given fluid challenge 09/20-->will need to monitor urine output * Dialysis catheter placed 09/21 * patient to start dialysis 09/23 following cardiac cath (2) Grade I Diastolic Heart Failure * Cardiology: Dr Dunbar is following * Echocardiogram 09/10/17 showed EF of 58% with hypokinetic anterior and apical septum and Grade I Abnormal Relaxation Patter. Moderate Tricuspid regurgitation and moderate to severe pulmonary HTN * Elevated ProBNP upon admission * Chest X Ray 09/13/17 showed increased pulmonary vascular congestion * Chest X Ray 09/14/17 showed decreased right side infiltrate and limited left perihilar infiltrate remaining * Chest X Ray 09/16/17 showed resolution of right upper lobe opacity, and there is questionable opacity medial right lung base * Chest xray PA and Lateral 09/1909/20/17: interval development of right upper lobe and left lower lobe consolidation and small pleural effusion. Persistent mild cardiomegaly and mild pulmonary venous congestion * f/u intake and output * f/u daily weight (lost about 10lbs) (3) Acute Respiratory Failure * Likely secondary to the increased pulmonary vascular congestion from the blood transfusions on 09/12/17, Acute Renal Failure, and Diastolic Heart Failure * Patient intubated and placed on vent by ICU team 09/13/17 and was successfully extubated 09/16/17 * Echocardiogram 09/10/17 showed EF of 58% with hypokinetic anterior and apical septum and Grade I Abnormal Relaxation Patter. Moderate Tricuspid regurgitation and moderate to severe pulmonary HTN * Chest xray PA and Lateral 09/1909/20/17: interval development of right upper lobe and left lower lobe consolidation and small pleural effusion. Persistent mild cardiomegaly and mild pulmonary venous congestion * Patient's sputum grew Staph aureus - for which patient is 09/19 on Ancef 1 gram Q8H * Pulmonary (Dr. Blair) consult-->patient noted worsening acute respiratory distress, placed back on Bipap; confirmed code status with niece who was present at bedside * Patient needed to be re-intubated 09/21/17 given agonal breathing; transferred to ICU. (4) Staph Aureus Pneumonia * ID Dr. Smith is following * Leukocytosis resolved, afebrile * White count normalized * Fever of 100.7 on 09/15/17 and patient was started on Vancomycin secondary to Sputum Culture 09/13/17 shows preliminary Staph aureus. However, Chest X Ray 09/16/17 did not show any infiltrates and as the leukocytosis has resolved, ICU Team discontinued the Vancomycin 09/16/17. * Blood Culture 09/10/17 is Negative To Date * Urine Culture 09/10/17 showed multiple species therefore another Urine Culture ordered 09/13/17-->pending * Patient's sputum grew Staph aureus * IV Abx: Ancef 1 gram IV Q8H (active since 09/19/17) (5) NONSTEMI Assessment & Plan: * Cardiology Dr. Dunbar on board--> help appreciated * For cardiac cath 09/23 * Family understands that given her cardiac risk factors, diabetes hypertension , which are chronic, will impact the heart * Uptrending; repeat EKG does not show ST changes * On Aspirin 81mg PO daily * Crestor 2.5mg PO qHS (6) Diabetes 2 Assessment & Plan: * HgBa1c: 7.8 * Hypoglycemia protocol * Crestor 2.5mg PO qHS * Off metformin, glipizide on admission given acute renal failure * Aspart sliding scale Status: Chronic (7) Hypotension on admission History of Hypertension Assessment & Plan: * Off anti-hypertensives (Hydralazine, Metoprolol XL, Amlodipine, Losartan/HCTZ , Lasix, Imdur) because of hypotension upon admission * She is on Lasix and Aldactone as mentioned in Assessment and Plan #1 * Currently stable * Improved compared to on admission Status: Chronic (8) Anemia Assessment & Plan: * Heme/Onc Dr. Toña Lentz * retic count: 2.2 * Iron: 44 * TIBC: 220 * iron saturation: 20 * Ferritin: 31 * Ferrlicit 125 mg IV 1x/day through 09/22/17 * ProCrit 10,000 Units SC T-T-S * HgB dropped to 7.0 and 2 units PRBC transfused 09/12/17. HgB/Hct is currently stable. * Serum Immunofixation with faint band in IgG and Lambda likely reactive. Repeat Serum Immunofixation in 3 to 6 months as outpatient. * Stool Occult Blood 09/10/17 and 09/13/17 are negative Status: Chronic (9). Elevated LFTs * monitor LFTs * on low dose statin (10) Polypharmacy Assessment & Plan: * Held home medications on admission including PO diabetic medications. Status: Acute (11) Vertigo-->resolved Assessment & Plan: * CT Head: negative on admission * Patient has seen previously Dr. 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 Code status: Full. Disposition: Patient needed to be reintubated following agonal breathing in spite of Bipap 09/21. patient scheduled for cardiac cath 09/23 to follow dialysis , first time. Family spoken and questions answered.
--- NOTE | 2017-09-22 19:15 | PN ---
DATE: FOLLOWUP SUBJECTIVE: The patient was scheduled for cardiac catheterization this afternoon; however, when the cardiac cath team arrived, the family refused the patient be moved for cardiac catheterization. I went and I had a lengthy discussion with the family and with the niece on the phone who spoke clear Guamanian and I concluded that the family wanted to wait for tomorrow for the cardiac catheterization. At this point, the procedure was canceled and the patient will be rescheduled for tomorrow early in the afternoon. Elvis Dunbar MD
[2017-09-22] MEDS: Rosuvastatin Calcium 2.5 mg Tab PO SCH (21:58)
[2017-09-23] MEDS: (Novolog) Insulin Aspart, Recombinant 100 u/ml 10 ml vial SC SCH ×4 (00:30→17:48)
--- NOTE | 2017-09-23 01:28 | CP.PCM.PN ---
Subjective - Date & Time of Evaluation Date of Evaluation: 09/22/17 Time of Evaluation: 15:10 - Subjective Subjective: Vented Objective - Vital Signs/Intake and Output Vital Signs (last 24 hours): Temp Pulse Resp BP Pulse Ox 99 F 115 H 28 H 136/52 L 100 09/23/17 00:00 09/23/17 01:00 09/23/17 01:00 09/23/17 00:24 09/23/17 01:00 Intake and Output: 09/22/17 09/23/17 18:59 06:59 Intake Total 953.2 517.3 Output Total 625 280 Balance 328.2 237.3 - Medications Medications: Current Medications Albuterol/Ipratropium (Duoneb 3 Mg/0.5 Mg (3 Ml) Ud) 3 ml INH RQ4 [facility] Last Admin: 09/22/17 23:56 Dose: 3 ml Aspirin (Aspirin Chewable) 81 mg PO DAILY [facility] Last Admin: 09/22/17 10:21 Dose: 81 mg Dextrose (Dextrose 50% Inj) 0 ml IV STAT PRN; Protocol PRN Reason: Hypoglycemia Protocol Dextrose (Glutose 15) 0 gm PO ONCE PRN; Protocol PRN Reason: Hypoglycemia Protocol Epoetin Sarath (Procrit) 10,000 unit SC TTS [facility] Last Admin: 09/22/17 10:18 Dose: 10,000 unit Furosemide (Lasix) 40 mg IVP BID [facility] Glucagon (Glucagen Diagnostic Kit) 0 mg IM STAT PRN; Protocol PRN Reason: Hypoglycemia Protocol Heparin Sodium (Porcine) (Heparin) 5,000 units SC Q8 [facility] Last Admin: 09/22/17 21:58 Dose: 5,000 units Dextrose (Dextrose 5% In Water 1000 Ml) 1,000 mls @ 0 mls/hr IV .Q0M PRN; Protocol; Per Protocol PRN Reason: Hypoglycemia Protocol Dextrose (Dextrose 5% In Water 1000 Ml) 1,000 mls @ 50 mls/hr IV .Q20H [facility] Last Admin: 09/22/17 09:48 Dose: 50 mls/hr Propofol (Diprivan) 1,000 mg in 100 mls @ 1.306 mls/hr IV .Q24H PRN; Protocol; 5 MCG/KG/MIN PRN Reason: TITRATE PER MD ORDER Last Titration: 09/22/17 14:00 Dose: 15 mcg/kg/min, 3.919 mls/hr Insulin Aspart (Novolog) 0 unit SC Q6 [facility] PRN Reason: Protocol Last Admin: 09/23/17 00:30 Dose: 5 unit Ondansetron HCl (Zofran Inj) 4 mg IVP Q6 PRN PRN Reason: Nausea/Vomiting Last Admin: 09/13/17 11:01 Dose: 4 mg Pantoprazole Sodium (Protonix Inj) 40 mg IVP DAILY [facility] Last Admin: 09/22/17 09:53 Dose: 40 mg Rosuvastatin Calcium (Crestor) 2.5 mg PO HS [facility] Last Admin: 09/22/17 21:58 Dose: 2.5 mg - Labs Labs: 09/22/17 06:20 09/22/17 06:20 PT 10.3 SECONDS (9.7-12.2) 09/10/17 13:52 INR 0.9 09/10/17 13:52 APTT 34 SECONDS (21-34) 09/10/17 13:52 - Head Exam Head Exam: ATRAUMATIC - Eye Exam Eye Exam: Normal appearance - ENT Exam ENT Exam: Mucous Membranes Dry - Respiratory Exam Respiratory Exam: Decreased Breath Sounds - Cardiovascular Exam Cardiovascular Exam: +S1, +S2 - GI/Abdominal Exam GI & Abdominal Exam: Normal Bowel Sounds Assessment and Plan (1) Anemia Assessment & Plan: iron deficiency s/p IV 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
[2017-09-23] MEDS: Albuterol-Ipratrop 3 mg / 0.5 (3 ml) UD INH SCH ×5 (03:02→19:54)
[2017-09-23 05:45] LABS: ABG ALLEN TEST POS; ARTERIAL BLOOD GAS MODE PRVC; ARTERIAL BLOOD HGB O2 SAT 96.4 % (95.0-98.0); ATERIAL BLOOD GAS PEEP 5; CARBOXYHEMOGLOBIN 1.2 % (0.5-1.5); DRAW SITE LR; HHB 1.5 % (0.0-5.0); METHEMOGLOBIN 0.9 % (0.0-3.0)
[2017-09-23 06:30] LABS: BASO # 0.1 K/uL (0.0-0.2); BASO % 0.5 % (0.0-2.0); EOS # 0.1 K/uL (0.0-0.7); EOS % 0.6 % (0.0-4.0); HEMATOCRIT 26.1 % (34.0-47.0); LYMPH % 8.5 % (20.0-40.0); MEAN CELL VOLUME 78.3 fL (81.0-99.0); MEAN CORPUSCULAR HEMOGLOBIN 24.3 pg (27.0-31.0); MEAN PLATELET VOLUME 9.5 fL (7.2-11.7); MONO # 0.7 K/uL (0.0-0.8); MONO % 6.2 % (0.0-10.0); NRBC % 8.1 % (0.0-2.0); PLATELET COUNT 232 K/uL (130-400); RED CELL DISTRIBUTION WIDTH 19.8 % (11.5-14.5); WHITE BLOOD COUNT 11.7 K/uL (4.8-10.8)
[2017-09-23 06:52] LABS: ALB/GLOB RATIO 1.1 (1.0-2.1); BILIRUBIN,TOTAL 0.7 mg/dL (0.2-1.3); CALCIUM 7.9 mg/dl (8.6-10.4); PHOSPHOROUS 2.4 mg/dL (2.5-4.5); POTASSIUM 4.1 mmol/L (3.6-5.2); TOTAL PROTEIN 5.1 g/dL (6.3-8.3)
[2017-09-23] MEDS: Propofol 10 mg/ml 1,000 MG/100 ML VIAL IV PRN (08:00)
[2017-09-23 08:36] LABS: NEUTROPHIL 71 % (50-75); NUCLEATED RED BLOOD CELL 27 % (0-0); TOTAL CELLS COUNTED 100
[2017-09-23] MEDS ORDERED: Dexmedetomidine Hydrochloride 200 MCG in Sodium Chloride 0.9% 48 ML IV PRN (09:00)
[2017-09-23] MEDS: MethylPREDNISolone 40 mg Vial IVP SCH ×3 (09:18→21:18)
[2017-09-23] MEDS: Acetylcysteine 20% Inhal Soln (4ml) PO SCH ×2 (09:27→21:17)
--- NOTE | 2017-09-23 09:50 | RAD ---
HISTORY: intubated COMPARISON: 03/22/2017. FINDINGS: The endotracheal tube terminates 2.5 cm proximal to the jo-ann. The right PICC line terminates at the cavoatrial junction. LUNGS: The lungs are well inflated. There is mild pulmonary venous congestion. No focal consolidation. PLEURA: No significant pleural effusion identified, no pneumothorax apparent. CARDIOVASCULAR: The cardiomediastinal silhouette is stable. OSSEOUS STRUCTURES: Within normal limits for the patient's age. VISUALIZED UPPER ABDOMEN: Normal. OTHER FINDINGS: None. IMPRESSION: Endotracheal tube terminates 2.5 cm proximal to the jo-ann. The right PICC line terminates at the cavoatrial junction. Mild pulmonary venous congestion. No focal consolidation.
--- NOTE | 2017-09-23 12:23 | CARD ---
APPROVED REPORT EKG Measurement Heart [id number] <Conclusion> Normal sinus rhythm w 1st degree avb Possible Left atrial enlargement Anteroseptal infarct, age undetermined Abnormal ECG
--- NOTE | 2017-09-23 12:30 | CP.PCM.CON ---
History of Present Illness - History of Present Illness History of Present Illness: Palliative consult requested for goals of care discussion Patient is a 81 yo female admitted from home with dizziness and lightheadedness. The CT head and Doppler or LEs were negative acute findings. The sputum C&S were positive ( pls see full report) and IV antibiotics initiated. During the hospital stay, patient's condition had worsened and patient required assistance of MV. Patient was successfully extubated at one point just to be re intubated again due to Pulmonary HTN confirmed by most recent CXR. PMH: anemia, DM, HTN, arthritis, osteoporosis Sox. Hx: single, heathr rachelle, no kids, lives with sister Ino. Hx: DM runs in family, both parents Review of Systems - Review of Systems All systems: reviewed and no additional remarkable complaints except Review of Systems: ROS obtained from nursing. No acute overnight events. Cardiac labview programmer pending Past Patient History - Infectious Disease Hx of Infectious Diseases: None - Past Medical History & Family History Past Medical History?: Yes - Past Social History Smoking Status: Never Smoked - CARDIAC Hx Hypercholesterolemia: Yes Hx Hypertension: Yes - PULMONARY Hx Respiratory Disorders: No - HEENT Hx HEENT Problems: No - RENAL Hx Chronic Kidney Disease: No - ENDOCRINE/METABOLIC Hx Diabetes Mellitus Type 2: Yes - HEMATOLOGICAL/ONCOLOGICAL Hx Anemia: Yes - INTEGUMENTARY Hx Dermatological Problems: No - MUSCULOSKELETAL/RHEUMATOLOGICAL Hx Arthritis: Yes - GASTROINTESTINAL Hx Gastrointestinal Disorders: No - GENITOURINARY/GYNECOLOGICAL Hx Genitourinary Disorders: No - PSYCHIATRIC Hx Psychophysiologic Disorder: No Hx Substance Use: No - SURGICAL HISTORY Hx Surgeries: Yes Hx Orthopedic Surgery: Yes (LEFT KNEE) Other/Comment: Right leg - ANESTHESIA Hx Anesthesia: Yes Hx Anesthesia Reactions: No Meds Allergies/Adverse Reactions: Allergies Allergy/AdvReac Type Severity Reaction Status Date / Time No Known Allergies Allergy Verified 09/10/17 13:16 - Medications Medications: Current Medications Acetylcysteine (Acetylcysteine 20%) 6 ml PO Q12 [facility] Stop: 09/24/17 22:01 Last Admin: 09/23/17 09:27 Dose: 6 ml Albuterol/Ipratropium (Duoneb 3 Mg/0.5 Mg (3 Ml) Ud) 3 ml INH RQ4 [facility] Last Admin: 09/23/17 07:49 Dose: 3 ml Aspirin (Aspirin Chewable) 81 mg PO DAILY [facility] Last Admin: 09/23/17 09:18 Dose: 81 mg Dextrose (Dextrose 50% Inj) 0 ml IV STAT PRN; Protocol PRN Reason: Hypoglycemia Protocol Dextrose (Glutose 15) 0 gm PO ONCE PRN; Protocol PRN Reason: Hypoglycemia Protocol Diltiazem HCl (Cardizem) 30 mg PO Q6H [facility] Last Admin: 09/23/17 09:18 Dose: 30 mg Epoetin Sarath (Procrit) 10,000 unit SC TTS [facility] Last Admin: 09/22/17 10:18 Dose: 10,000 unit Furosemide (Lasix) 40 mg IVP BID [facility] Glucagon (Glucagen Diagnostic Kit) 0 mg IM STAT PRN; Protocol PRN Reason: Hypoglycemia Protocol Heparin Sodium (Porcine) (Heparin) 5,000 units SC Q8 [facility] Last Admin: 09/23/17 06:16 Dose: Not Given Dextrose (Dextrose 5% In Water 1000 Ml) 1,000 mls @ 0 mls/hr IV .Q0M PRN; Protocol; Per Protocol PRN Reason: Hypoglycemia Protocol Dexmedetomidine HCl 200 mcg/ (Sodium Chloride) 50 mls @ 2.19 mls/hr IV TITR PRN ; Protocol; 0.2 MCG/KG/HR PRN Reason: Sedation Last Titration: 09/23/17 11:33 Dose: 0.3 mcg/kg/hr, 3.28 mls/hr Insulin Aspart (Novolog) 0 unit SC Q6 [facility] PRN Reason: Protocol Last Admin: 09/23/17 11:47 Dose: 3 unit Methylprednisolone (Solu-Medrol) 40 mg IVP Q8 [facility] Stop: 09/24/17 22:01 Last Admin: 09/23/17 09:18 Dose: 40 mg Ondansetron HCl (Zofran Inj) 4 mg IVP Q6 PRN PRN Reason: Nausea/Vomiting Last Admin: 09/13/17 11:01 Dose: 4 mg Pantoprazole Sodium (Protonix Inj) 40 mg IVP DAILY [facility] Last Admin: 09/23/17 09:18 Dose: 40 mg Rosuvastatin Calcium (Crestor) 2.5 mg PO HS [facility] Last Admin: 09/22/17 21:58 Dose: 2.5 mg Physical Exam - Constitutional Appears: In Acute Distress - Head Exam Head Exam: ATRAUMATIC, NORMAL INSPECTION, NORMOCEPHALIC - Eye Exam Eye Exam: Normal appearance, PERRL Pupil Exam: NORMAL ACCOMODATION, PERRL - ENT Exam ENT Exam: Normal Exam Additional comments: ETT - Neck Exam Neck exam: Positive for: Normal Inspection - Respiratory Exam Additional comments: On MV - Cardiovascular Exam Cardiovascular Exam: Tachycardia - GI/Abdominal Exam GI & Abdominal Exam: Normal Bowel Sounds, Soft - Rectal Exam Rectal Exam: Deferred - Exam Additional comments: Garcia cath - Extremities Exam Extremities exam: Positive for: normal inspection - Back Exam Back exam: NORMAL INSPECTION - Neurological Exam Neurological exam: Motor Sensory Deficit - Psychiatric Exam Psychiatric exam: Flat Affect - Skin Skin Exam: Normal Color, Warm Results - Vital Signs Recent Vital Signs: Last Vital Signs Temp 98.9 F 09/23/17 12:00 Pulse 103 H 09/23/17 12:00 Resp 17 09/23/17 12:00 BP 117/54 L 09/23/17 11:25 Pulse Ox 99 09/23/17 12:00 - Labs Result Diagrams: 09/23/17 06:21 09/23/17 06:21 Labs: Laboratory Results - last 24 hr 09/22/17 09/23/17 09/23/17 17:47 00:06 05:20 WBC RBC Hgb Hct MCV MCH MCHC RDW Plt Count MPV Neut % (Auto) Lymph % (Auto) [place] % (Auto) Eos % (Auto) Baso % (Auto) Neut # Lymph # [place] # Eos # Baso # Neutrophils % (Manual) Band Neutrophils % Lymphocytes % (Manual) Monocytes % (Manual) Nucleated RBC % Platelet Estimate Polychromasia Hypochromasia (manual) Poikilocytosis (manual Anisocytosis (manual) Microcytosis (manual) Macrocytosis (manual) Target Cells Ovalocytes Schistocytes Puncture Site Lr pCO2 31 L pO2 131 H HCO3 23.4 ABG pH 7.45 ABG Total CO2 22.5 ABG O2 Saturation 98.5 H ABG Base Excess -2.0 ABG Hemoglobin 8.7 L ABG Carboxyhemoglobin 1.2 POC ABG HHb (Measured) 1.5 ABG Methemoglobin 0.9 Guy Test Pos A-a O2 Difference 187.0 Respiratory Index 1.4 Hgb O2 Saturation 96.4 Vent Mode Prvc FiO2 50.0 Tidal Volume 400 PEEP 5 Sodium Potassium Chloride Carbon Dioxide Anion Gap BUN Creatinine Est GFR ( Amer) Est GFR (Non-Af Amer) POC Glucose (mg/dL) 322 H 390 H Random Glucose Calcium Phosphorus Magnesium Total Bilirubin AST ALT Alkaline Phosphatase Total Protein Albumin Globulin Albumin/Globulin Ratio 09/23/17 09/23/17 09/23/17 06:09 06:21 06:21 WBC 11.7 H RBC 3.33 L Hgb 8.1 L Hct 26.1 L MCV 78.3 L MCH 24.3 L MCHC 31.0 L RDW 19.8 H Plt Count 232 MPV 9.5 Neut % (Auto) 84.2 H Lymph % (Auto) 8.5 L [place] % (Auto) 6.2 Eos % (Auto) 0.6 Baso % (Auto) 0.5 Neut # 9.9 H Lymph # 1.0 [place] # 0.7 Eos # 0.1 Baso # 0.1 Neutrophils % (Manual) 71 Band Neutrophils % 1 Lymphocytes % (Manual) 23 Monocytes % (Manual) 5 Nucleated RBC % 27 H Platelet Estimate Normal Polychromasia Slight Hypochromasia (manual) Moderate Poikilocytosis (manual Slight Anisocytosis (manual) Slight Microcytosis (manual) Slight Macrocytosis (manual) Slight Target Cells Slight Ovalocytes Slight Schistocytes Slight Puncture Site pCO2 pO2 HCO3 ABG pH ABG Total CO2 ABG O2 Saturation ABG Base Excess ABG Hemoglobin ABG Carboxyhemoglobin POC ABG HHb (Measured) ABG Methemoglobin Guy Test A-a O2 Difference Respiratory Index Hgb O2 Saturation Vent Mode FiO2 Tidal Volume PEEP Sodium 152 H Potassium 4.1 Chloride 118 H Carbon Dioxide 22 Anion Gap 16 BUN 64 H Creatinine 1.7 H Est GFR ( Amer) 35 Est GFR (Non-Af Amer) 29 POC Glucose (mg/dL) 309 H Random Glucose 277 H Calcium 7.9 L Phosphorus 2.4 L Magnesium 2.0 Total Bilirubin 0.7 AST 29 ALT 28 Alkaline Phosphatase 58 Total Protein 5.1 L Albumin 2.7 L Globulin 2.4 Albumin/Globulin Ratio 1.1 09/23/17 11:40 WBC RBC Hgb Hct MCV MCH MCHC RDW Plt Count MPV Neut % (Auto) Lymph % (Auto) [place] % (Auto) Eos % (Auto) Baso % (Auto) Neut # Lymph # [place] # Eos # Baso # Neutrophils % (Manual) Band Neutrophils % Lymphocytes % (Manual) Monocytes % (Manual) Nucleated RBC % Platelet Estimate Polychromasia Hypochromasia (manual) Poikilocytosis (manual Anisocytosis (manual) Microcytosis (manual) Macrocytosis (manual) Target Cells Ovalocytes Schistocytes Puncture Site pCO2 pO2 HCO3 ABG pH ABG Total CO2 ABG O2 Saturation ABG Base Excess ABG Hemoglobin ABG Carboxyhemoglobin POC ABG HHb (Measured) ABG Methemoglobin Guy Test A-a O2 Difference Respiratory Index Hgb O2 Saturation Vent Mode FiO2 Tidal Volume PEEP Sodium Potassium Chloride Carbon Dioxide Anion Gap BUN Creatinine Est GFR ( Amer) Est GFR (Non-Af Amer) POC Glucose (mg/dL) 251 H Random Glucose Calcium Phosphorus Magnesium Total Bilirubin AST ALT Alkaline Phosphatase Total Protein Albumin Globulin Albumin/Globulin Ratio Assessment & Plan - Assessment and Plan (Free Text) Assessment: Palliative consult Code status Full Code, there is no Advance directive or Living Will on chart I reviewed medical records, all diagnostic studies, examined patient in the bed and held family meeting Patient is sedated , inubated and on MV support. patient is being prepared by the nursing, for the cardiac cath studies. Family at bed side, 2 brothers, two sisters and a niece. Family meeting held away from the bed side in private environment. Translation provided by [employer] translation. I elicited family's knowledge of patient's condition. All of them said they knew " she was very sick", but were not sure about details. Per report, Doctor Weaver had spoken to family in presence of Caitlin, the niece, who translated and reviewed the clinical findings. I reviewed patient's clinical presentation, the test and exams done so far, the care provided and further testing. Family listened very carefully and stated understanding. Family's goals for this patient reviewed. Family admits feeling very emotional and fearful of what the outcome may be. The hope patient would recover and return to her previous life. I supported them and reassured of care provided. Code status discussion initiated. Family was informed of importance of this topic as their chance to fully advocate for the patient in case if condition worsens. Family stated patient never had done the living will nor she ever talked to them about . Family at first looked very uncomfortable discussing the topic, but as discussion went on with more detailed information about it, they slowly engaged in discussion. Family stated understanding the meaning of CODE status and DNR/DNI, but also stated not being able to make any decision at this time, as this was their first time hearing about it. They would like to discuss it among them selves, fallow patient's progress than discuss it again. I supported them and reassured that deciding on Code status, would not affect care provided. Impression * Chronically ill, elderly lady with acute onset of respiratory distress * patient is on full life support, intubated for the 2nd time due to Pulmonary HTN * Patient's wishes for the end of life care are not known * Family , 2 brothers, 2 sister and a niece are very emotional, under high anxiety and often unrealistic in their expectations Suggestion * Provide all interventions to support life, including aggressive interventions * Goals of care to be adjusted based on patient's progress * Family needs constant reinforcement of care provided Family given my contact info nd occuraged to call me as they come in and if may have more questions. Family stated appreciation of family meeting.
--- NOTE | 2017-09-23 12:59 | CP.PCM.PN ---
Subjective - Date & Time of Evaluation Date of Evaluation: 09/23/17 Time of Evaluation: 10:40 - Subjective Subjective: patient seen and examined. Remains intubated on ventilatory suppor Sedated Possible cardiac catheter today Afebrile Objective - Vital Signs/Intake and Output Vital Signs (last 24 hours): Temp Pulse Resp BP Pulse Ox 98.9 F 103 H 17 117/54 L 99 09/23/17 12:00 09/23/17 12:00 09/23/17 12:00 09/23/17 11:25 09/23/17 12:00 Intake and Output: 09/23/17 09/23/17 06:59 18:59 Intake Total 786.8 400.0 Output Total 465 200 Balance 321.8 200.0 - Medications Medications: Current Medications Acetylcysteine (Acetylcysteine 20%) 6 ml PO Q12 [facility] Stop: 09/24/17 22:01 Last Admin: 09/23/17 09:27 Dose: 6 ml Albuterol/Ipratropium (Duoneb 3 Mg/0.5 Mg (3 Ml) Ud) 3 ml INH RQ4 [facility] Last Admin: 09/23/17 07:49 Dose: 3 ml Aspirin (Aspirin Chewable) 81 mg PO DAILY [facility] Last Admin: 09/23/17 09:18 Dose: 81 mg Dextrose (Dextrose 50% Inj) 0 ml IV STAT PRN; Protocol PRN Reason: Hypoglycemia Protocol Dextrose (Glutose 15) 0 gm PO ONCE PRN; Protocol PRN Reason: Hypoglycemia Protocol Diltiazem HCl (Cardizem) 30 mg PO Q6H [facility] Last Admin: 09/23/17 09:18 Dose: 30 mg Epoetin Sarath (Procrit) 10,000 unit SC TTS [facility] Last Admin: 09/22/17 10:18 Dose: 10,000 unit Furosemide (Lasix) 40 mg IVP BID [facility] Glucagon (Glucagen Diagnostic Kit) 0 mg IM STAT PRN; Protocol PRN Reason: Hypoglycemia Protocol Heparin Sodium (Porcine) (Heparin) 5,000 units SC Q8 [facility] Last Admin: 09/23/17 06:16 Dose: Not Given Dextrose (Dextrose 5% In Water 1000 Ml) 1,000 mls @ 0 mls/hr IV .Q0M PRN; Protocol; Per Protocol PRN Reason: Hypoglycemia Protocol Dexmedetomidine HCl 200 mcg/ (Sodium Chloride) 50 mls @ 2.19 mls/hr IV TITR PRN ; Protocol; 0.2 MCG/KG/HR PRN Reason: Sedation Last Titration: 09/23/17 11:33 Dose: 0.3 mcg/kg/hr, 3.28 mls/hr Insulin Aspart (Novolog) 0 unit SC Q6 [facility] PRN Reason: Protocol Last Admin: 09/23/17 11:47 Dose: 3 unit Methylprednisolone (Solu-Medrol) 40 mg IVP Q8 [facility] Stop: 09/24/17 22:01 Last Admin: 09/23/17 09:18 Dose: 40 mg Ondansetron HCl (Zofran Inj) 4 mg IVP Q6 PRN PRN Reason: Nausea/Vomiting Last Admin: 09/13/17 11:01 Dose: 4 mg Pantoprazole Sodium (Protonix Inj) 40 mg IVP DAILY [facility] Last Admin: 09/23/17 09:18 Dose: 40 mg Rosuvastatin Calcium (Crestor) 2.5 mg PO HS [facility] Last Admin: 09/22/17 21:58 Dose: 2.5 mg - Labs Labs: 09/23/17 06:21 09/23/17 06:21 PT 10.3 SECONDS (9.7-12.2) 09/10/17 13:52 INR 0.9 09/10/17 13:52 APTT 34 SECONDS (21-34) 09/10/17 13:52 - Head Exam Head Exam: ATRAUMATIC, NORMOCEPHALIC - ENT Exam ENT Exam: Mucous Membranes Moist - Neck Exam Neck Exam: Normal Inspection - Respiratory Exam Respiratory Exam: Clear to Ausculation Bilateral - Cardiovascular Exam Cardiovascular Exam: REGULAR RHYTHM - GI/Abdominal Exam GI & Abdominal Exam: Soft, Normal Bowel Sounds - Extremities Exam Extremities Exam: Normal Inspection Assessment and Plan (1) Hypercapnic respiratory failure Assessment & Plan: Continue ventilatory support and wean as tolerated For cardiac catheterization today Short course of steroids for laryngeal swelling Hemodialysis after cardiac catheter Status: Acute (2) CKD (chronic kidney disease) stage 4, GFR 15-29 ml/min Status: Acute
[2017-09-23] MEDS ORDERED: Iodixanol 320 MG/ML 100 ML BOTTLE IV ONE (13:18)
--- NOTE | 2017-09-23 13:30 | CP.PCM.PN ---
Subjective - Date & Time of Evaluation Date of Evaluation: 09/23/17 Time of Evaluation: 13:27 - Subjective Subjective: sedated and on vent; no ROS obtained for cardiac cath due to continued troponin leak placed on IV lasix- good UO, > 1300ml plans for dialysis post cath due to continued renal failure and contrast dye renal function has been improving now- unclear whether more treatments will be needed Objective - Vital Signs/Intake and Output Vital Signs (last 24 hours): Temp Pulse Resp BP Pulse Ox 98.9 F 68 27 H 109/35 L 97 09/23/17 12:00 09/23/17 12:25 09/23/17 12:25 09/23/17 12:25 09/23/17 12:25 Intake and Output: 09/23/17 09/23/17 06:59 18:59 Intake Total 786.8 400.0 Output Total 465 200 Balance 321.8 200.0 - Medications Medications: Current Medications Acetylcysteine (Acetylcysteine 20%) 6 ml PO Q12 [facility] Stop: 09/24/17 22:01 Last Admin: 09/23/17 09:27 Dose: 6 ml Albuterol/Ipratropium (Duoneb 3 Mg/0.5 Mg (3 Ml) Ud) 3 ml INH RQ4 [facility] Last Admin: 09/23/17 07:49 Dose: 3 ml Aspirin (Aspirin Chewable) 81 mg PO DAILY [facility] Last Admin: 09/23/17 09:18 Dose: 81 mg Dextrose (Dextrose 50% Inj) 0 ml IV STAT PRN; Protocol PRN Reason: Hypoglycemia Protocol Dextrose (Glutose 15) 0 gm PO ONCE PRN; Protocol PRN Reason: Hypoglycemia Protocol Diltiazem HCl (Cardizem) 30 mg PO Q6H [facility] Last Admin: 09/23/17 09:18 Dose: 30 mg Epoetin Sarath (Procrit) 10,000 unit SC TTS [facility] Last Admin: 09/22/17 10:18 Dose: 10,000 unit Furosemide (Lasix) 40 mg IVP BID [facility] Glucagon (Glucagen Diagnostic Kit) 0 mg IM STAT PRN; Protocol PRN Reason: Hypoglycemia Protocol Heparin Sodium (Porcine) (Heparin) 5,000 units SC Q8 [facility] Last Admin: 09/23/17 06:16 Dose: Not Given Dextrose (Dextrose 5% In Water 1000 Ml) 1,000 mls @ 0 mls/hr IV .Q0M PRN; Protocol; Per Protocol PRN Reason: Hypoglycemia Protocol Dexmedetomidine HCl 200 mcg/ (Sodium Chloride) 50 mls @ 2.19 mls/hr IV TITR PRN ; Protocol; 0.2 MCG/KG/HR PRN Reason: Sedation Last Titration: 09/23/17 11:33 Dose: 0.3 mcg/kg/hr, 3.28 mls/hr Insulin Aspart (Novolog) 0 unit SC Q6 [facility] PRN Reason: Protocol Last Admin: 09/23/17 11:47 Dose: 3 unit Methylprednisolone (Solu-Medrol) 40 mg IVP Q8 [facility] Stop: 09/24/17 22:01 Last Admin: 09/23/17 09:18 Dose: 40 mg Ondansetron HCl (Zofran Inj) 4 mg IVP Q6 PRN PRN Reason: Nausea/Vomiting Last Admin: 09/13/17 11:01 Dose: 4 mg Pantoprazole Sodium (Protonix Inj) 40 mg IVP DAILY [facility] Last Admin: 09/23/17 09:18 Dose: 40 mg Rosuvastatin Calcium (Crestor) 2.5 mg PO HS [facility] Last Admin: 09/22/17 21:58 Dose: 2.5 mg - Labs Labs: 09/23/17 06:21 09/23/17 06:21 PT 10.3 SECONDS (9.7-12.2) 09/10/17 13:52 INR 0.9 09/10/17 13:52 APTT 34 SECONDS (21-34) 09/10/17 13:52 - Constitutional Appears: No Acute Distress, Chronically Ill - Head Exam Head Exam: ATRAUMATIC, NORMAL INSPECTION - Neck Exam Neck Exam: Normal Inspection. absent: Tenderness - Respiratory Exam Respiratory Exam: Rhonchi, Respiratory Distress - Cardiovascular Exam Cardiovascular Exam: Tachycardia, +S1 - GI/Abdominal Exam GI & Abdominal Exam: Soft. absent: Tenderness - Extremities Exam Extremities Exam: Normal Inspection. absent: Tenderness - Neurological Exam Neurological Exam: Awake, CN II-XII Intact - Skin Skin Exam: Dry, Warm Assessment and Plan (1) BERYL (acute kidney injury) Status: Acute (2) CHF (congestive heart failure) Status: Acute (3) Chronic hemorrhagic anemia Status: Acute (4) Elevated brain natriuretic peptide (BNP) level Status: Acute (5) Elevated troponin I level Status: Acute (6) Non-STEMI (non-ST elevated myocardial infarction) Status: Acute (7) Transient hypotension Status: Acute (8) CKD (chronic kidney disease) stage 4, GFR 15-29 ml/min Status: Acute - Assessment and Plan (Free Text) Plan: cardiac cath dialysis post cath planned monitor for contrast nephropathy and need for further dialysis
[2017-09-23] MEDS ORDERED: Midazolam 2 MG/2 ML VIAL ONE (13:33)
[2017-09-23] MEDS ORDERED: Dexmedetomidine Hydrochloride 400 MCG in Sodium Chloride 0.9% 96 ML IV PRN (15:45)
--- NOTE | 2017-09-23 16:41 | CP.CCUPN ---
<Bertin Wheat - Last Filed: 09/23/17 17:23> CCU Subjective - Physician Review Subjective (Free Text): PGY1 ICU Progress Note for Dr. Aneta Wiggins Patient seen and examined at bedside this morning. Patient is intubated on sedation with propofol. ROS unattainable. CCU Objective - Vital Signs / Intake & Output Vital Signs (Last 4 hours): Vital Signs Temp Pulse Resp BP Pulse Ox 09/23/17 15:33 73 24 106/41 L 100 09/23/17 15:30 99.1 F 56 L 26 H 106/41 L 99 09/23/17 15:16 66 24 102/40 L 100 09/23/17 15:15 99.0 F 69 21 102/40 L 100 09/23/17 15:00 99.2 F 58 L 14 95/42 L 100 09/23/17 14:56 67 14 95/42 L 100 09/23/17 14:45 98.9 F 62 14 104/39 L 100 09/23/17 14:42 60 14 104/39 L 09/23/17 14:30 98.8 F 84 12 145/39 L 09/23/17 14:27 79 19 145/39 L 09/23/17 14:22 14 09/23/17 12:25 68 27 H 109/35 L 97 Intake and Output (Last 8hrs): Intake & Output 09/23/17 09/23/17 09/23/17 06:59 14:59 22:59 Intake Total 461.2 406.6 43.3 Output Total 300 260 30 Balance 161.2 146.6 13.3 Weight 96 lb 11.2 oz Intake: IV 80 40 Intake, IV Amount 431.2 176.6 3.3 Right PICC #1 31.2 26.6 3.3 Right PICC #2 400 150 Oral 150 Tube Feeding 30 0 0 Output: Urine 300 260 30 Urethral (Garcia) 300 260 30 Other: # Bowel Movements 0 0 - Physical Exam Head: Positive for: Atraumatic, Normocephalic Extroacular Muscles: Positive for: EOMI Mouth: Positive for: Other (intubated) Respiratory/Chest: Positive for: Other (intubated) Cardiovascular: Positive for: Regular Rate and Rhythm, Normal S1, S2 Abdomen: Negative for: Tenderness, Distention Genitourinary/Pelvic Exam: Positive for: Other (hemodialysis catheter inserted in R femoral) Lower Extremity: Positive for: Other (SCDs in place) Neurological: Positive for: Other (intubated/sedated) Skin: Positive for: Warm, Dry Psychiatric: Positive for: Other (intubated/sedated) - Medications Active Medications: Active Medications Generic Name Dose Route Start Last Admin Trade Name Freq PRN Reason Stop Dose Admin Acetylcysteine 6 ml 09/23/17 10:00 09/23/17 09:27 Acetylcysteine 20% PO 09/24/17 22:01 6 ml Q12 GLADYS Administration Albuterol/Ipratropium 3 ml 09/20/17 12:00 09/23/17 15:01 Duoneb 3 Mg/0.5 Mg (3 Ml) Ud INH 3 ml RQ4 GLADYS Administration Aspirin 81 mg 09/22/17 10:15 09/23/17 09:18 Aspirin Chewable PO 81 mg DAILY GLADYS Administration Dextrose 0 ml 09/10/17 17:21 Dextrose 50% Inj IV STAT PRN Hypoglycemia Protocol Protocol Dextrose 0 gm 09/10/17 17:21 Glutose 15 PO ONCE PRN Hypoglycemia Protocol Protocol Diltiazem HCl 30 mg 09/23/17 10:00 09/23/17 16:08 Cardizem PO Not Given Q6H GLADYS Epoetin Sarath 10,000 unit 09/15/17 10:00 09/22/17 10:18 Procrit SC 10,000 unit TTS GLADYS Administration Furosemide 40 mg 09/22/17 09:32 Lasix IVP BID GLADYS Glucagon 0 mg 09/10/17 17:21 Glucagen Diagnostic Kit IM STAT PRN Hypoglycemia Protocol Protocol Heparin Sodium (Porcine) 5,000 units 09/20/17 22:00 09/23/17 15:26 Heparin SC Not Given Q8 GLADYS Dextrose 1,000 mls @ 0 mls/hr 09/10/17 17:21 Dextrose 5% In Water 1000 Ml IV .Q0M PRN Hypoglycemia Protocol Protocol Per Protocol Dexmedetomidine HCl 400 mcg/ 100 mls @ 2.19 mls/hr 09/23/17 15:45 09/23/17 16 :08 Sodium Chloride IV 0.4 mcg/kg/hr TITR PRN 4.38 mls/hr Sedation Administration Protocol 0.2 MCG/KG/HR Insulin Aspart 0 unit 09/16/17 00:00 09/23/17 11:47 Novolog SC 3 unit Q6 GLADYS Administration Protocol Methylprednisolone 40 mg 09/23/17 08:30 09/23/17 15:11 Solu-Medrol IVP 09/24/17 22:01 40 mg Q8 GLADYS Administration Ondansetron HCl 4 mg 09/10/17 17:00 09/13/17 11:01 Zofran Inj IVP 4 mg Q6 PRN Administration Nausea/Vomiting Pantoprazole Sodium 40 mg 09/11/17 10:00 09/23/17 09:18 Protonix Inj IVP 40 mg DAILY GLADYS Administration Rosuvastatin Calcium 2.5 mg 09/10/17 22:00 09/22/17 21:58 Crestor PO 2.5 mg HS GLADYS Administration - Patient Studies Lab Studies: Lab Studies 09/23/17 09/23/17 09/23/17 Range/Units 11:40 06:21 06:21 WBC 11.7 H (4.8-10.8) K/uL RBC 3.33 L (3.80-5.20) Mil/uL Hgb 8.1 L (11.0-16.0) g/dL Hct 26.1 L (34.0-47.0) % MCV 78.3 L (81.0-99.0) fL MCH 24.3 L (27.0-31.0) pg MCHC 31.0 L (33.0-37.0) g/dL RDW 19.8 H (11.5-14.5) % Plt Count 232 (130-400) K/uL MPV 9.5 (7.2-11.7) fL Neut % (Auto) 84.2 H (50.0-75.0) % Lymph % (Auto) 8.5 L (20.0-40.0) % Finney % (Auto) 6.2 (0.0-10.0) % Eos % (Auto) 0.6 (0.0-4.0) % Baso % (Auto) 0.5 (0.0-2.0) % Neut # 9.9 H (1.8-7.0) K/uL Lymph # 1.0 (1.0-4.3) K/uL Finney # 0.7 (0.0-0.8) K/uL Eos # 0.1 (0.0-0.7) K/uL Baso # 0.1 (0.0-0.2) K/uL Neutrophils % (Manual) 71 (50-75) % Band Neutrophils % 1 (0-2) % Lymphocytes % (Manual) 23 (20-40) % Monocytes % (Manual) 5 (0-10) % Nucleated RBC % 27 H (0-0) % Platelet Estimate Normal (NORMAL) Polychromasia Slight Hypochromasia (manual) Moderate Poikilocytosis (manual Slight Anisocytosis (manual) Slight Microcytosis (manual) Slight Macrocytosis (manual) Slight Target Cells Slight Ovalocytes Slight Schistocytes Slight Puncture Site pCO2 (35-45) mm/Hg pO2 (80-100) mm/Hg HCO3 (21-28) mmol/L ABG pH (7.35-7.45) ABG Total CO2 (22-28) mmol/L ABG O2 Saturation (95-98) % ABG Base Excess (-2.0-3.0) mmol/L ABG Hemoglobin (11.7-17.4) g/dL ABG Carboxyhemoglobin (0.5-1.5) % POC ABG HHb (Measured) (0.0-5.0) % ABG Methemoglobin (0.0-3.0) % Guy Test A-a O2 Difference mm/Hg Respiratory Index Hgb O2 Saturation (95.0-98.0) % Vent Mode FiO2 % Tidal Volume PEEP Sodium 152 H (132-148) mmol/L Potassium 4.1 (3.6-5.2) mmol/L Chloride 118 H (98-107) mmol/L Carbon Dioxide 22 (22-30) mmol/L Anion Gap 16 (10-20) BUN 64 H (7-17) mg/dL Creatinine 1.7 H (0.7-1.2) mg/dL Est GFR ( Amer) 35 Est GFR (Non-Af Amer) 29 POC Glucose (mg/dL) 251 H (65-110) mg/dL Random Glucose 277 H (65-105) mg/dL Calcium 7.9 L (8.6-10.4) mg/dl Phosphorus 2.4 L (2.5-4.5) mg/dL Magnesium 2.0 (1.6-2.3) mg/dL Total Bilirubin 0.7 (0.2-1.3) mg/dL AST 29 (14-36) U/L ALT 28 (9-52) U/L Alkaline Phosphatase 58 (38-126) U/L Total Protein 5.1 L (6.3-8.3) g/dL Albumin 2.7 L (3.5-5.0) g/dL Globulin 2.4 (2.2-3.9) gm/dL Albumin/Globulin Ratio 1.1 (1.0-2.1) 09/23/17 09/23/17 09/23/17 Range/Units 06:09 05:20 00:06 WBC (4.8-10.8) K/uL RBC (3.80-5.20) Mil/uL Hgb (11.0-16.0) g/dL Hct (34.0-47.0) % MCV (81.0-99.0) fL MCH (27.0-31.0) pg MCHC (33.0-37.0) g/dL RDW (11.5-14.5) % Plt Count (130-400) K/uL MPV (7.2-11.7) fL Neut % (Auto) (50.0-75.0) % Lymph % (Auto) (20.0-40.0) % Finney % (Auto) (0.0-10.0) % Eos % (Auto) (0.0-4.0) % Baso % (Auto) (0.0-2.0) % Neut # (1.8-7.0) K/uL Lymph # (1.0-4.3) K/uL Finney # (0.0-0.8) K/uL Eos # (0.0-0.7) K/uL Baso # (0.0-0.2) K/uL Neutrophils % (Manual) (50-75) % Band Neutrophils % (0-2) % Lymphocytes % (Manual) (20-40) % Monocytes % (Manual) (0-10) % Nucleated RBC % (0-0) % Platelet Estimate (NORMAL) Polychromasia Hypochromasia (manual) Poikilocytosis (manual Anisocytosis (manual) Microcytosis (manual) Macrocytosis (manual) Target Cells Ovalocytes Schistocytes Puncture Site Lr pCO2 31 L (35-45) mm/Hg pO2 131 H (80-100) mm/Hg HCO3 23.4 (21-28) mmol/L ABG pH 7.45 (7.35-7.45) ABG Total CO2 22.5 (22-28) mmol/L ABG O2 Saturation 98.5 H (95-98) % ABG Base Excess -2.0 (-2.0-3.0) mmol/L ABG Hemoglobin 8.7 L (11.7-17.4) g/dL ABG Carboxyhemoglobin 1.2 (0.5-1.5) % POC ABG HHb (Measured) 1.5 (0.0-5.0) % ABG Methemoglobin 0.9 (0.0-3.0) % Guy Test Pos A-a O2 Difference 187.0 mm/Hg Respiratory Index 1.4 Hgb O2 Saturation 96.4 (95.0-98.0) % Vent Mode Prvc FiO2 50.0 % Tidal Volume 400 PEEP 5 Sodium (132-148) mmol/L Potassium (3.6-5.2) mmol/L Chloride (98-107) mmol/L Carbon Dioxide (22-30) mmol/L Anion Gap (10-20) BUN (7-17) mg/dL Creatinine (0.7-1.2) mg/dL Est GFR ( Amer) Est GFR (Non-Af Amer) POC Glucose (mg/dL) 309 H 390 H (65-110) mg/dL Random Glucose (65-105) mg/dL Calcium (8.6-10.4) mg/dl Phosphorus (2.5-4.5) mg/dL Magnesium (1.6-2.3) mg/dL Total Bilirubin (0.2-1.3) mg/dL AST (14-36) U/L ALT (9-52) U/L Alkaline Phosphatase (38-126) U/L Total Protein (6.3-8.3) g/dL Albumin (3.5-5.0) g/dL Globulin (2.2-3.9) gm/dL Albumin/Globulin Ratio (1.0-2.1) 12/07/17 Range/Units 17:47 WBC (4.8-10.8) K/uL RBC (3.80-5.20) Mil/uL Hgb (11.0-16.0) g/dL Hct (34.0-47.0) % MCV (81.0-99.0) fL MCH (27.0-31.0) pg MCHC (33.0-37.0) g/dL RDW (11.5-14.5) % Plt Count (130-400) K/uL MPV (7.2-11.7) fL Neut % (Auto) (50.0-75.0) % Lymph % (Auto) (20.0-40.0) % Finney % (Auto) (0.0-10.0) % Eos % (Auto) (0.0-4.0) % Baso % (Auto) (0.0-2.0) % Neut # (1.8-7.0) K/uL Lymph # (1.0-4.3) K/uL Finney # (0.0-0.8) K/uL Eos # (0.0-0.7) K/uL Baso # (0.0-0.2) K/uL Neutrophils % (Manual) (50-75) % Band Neutrophils % (0-2) % Lymphocytes % (Manual) (20-40) % Monocytes % (Manual) (0-10) % Nucleated RBC % (0-0) % Platelet Estimate (NORMAL) Polychromasia Hypochromasia (manual) Poikilocytosis (manual Anisocytosis (manual) Microcytosis (manual) Macrocytosis (manual) Target Cells Ovalocytes Schistocytes Puncture Site pCO2 (35-45) mm/Hg pO2 (80-100) mm/Hg HCO3 (21-28) mmol/L ABG pH (7.35-7.45) ABG Total CO2 (22-28) mmol/L ABG O2 Saturation (95-98) % ABG Base Excess (-2.0-3.0) mmol/L ABG Hemoglobin (11.7-17.4) g/dL ABG Carboxyhemoglobin (0.5-1.5) % POC ABG HHb (Measured) (0.0-5.0) % ABG Methemoglobin (0.0-3.0) % Guy Test A-a O2 Difference mm/Hg Respiratory Index Hgb O2 Saturation (95.0-98.0) % Vent Mode FiO2 % Tidal Volume PEEP Sodium (132-148) mmol/L Potassium (3.6-5.2) mmol/L Chloride (98-107) mmol/L Carbon Dioxide (22-30) mmol/L Anion Gap (10-20) BUN (7-17) mg/dL Creatinine (0.7-1.2) mg/dL Est GFR ( Amer) Est GFR (Non-Af Amer) POC Glucose (mg/dL) 322 H (65-110) mg/dL Random Glucose (65-105) mg/dL Calcium (8.6-10.4) mg/dl Phosphorus (2.5-4.5) mg/dL Magnesium (1.6-2.3) mg/dL Total Bilirubin (0.2-1.3) mg/dL AST (14-36) U/L ALT (9-52) U/L Alkaline Phosphatase (38-126) U/L Total Protein (6.3-8.3) g/dL Albumin (3.5-5.0) g/dL Globulin (2.2-3.9) gm/dL Albumin/Globulin Ratio (1.0-2.1) Laboratory Results - last 24 hr 09/22/17 09/23/17 09/23/17 17:47 00:06 05:20 WBC RBC Hgb Hct MCV MCH MCHC RDW Plt Count MPV Neut % (Auto) Lymph % (Auto) Finney % (Auto) Eos % (Auto) Baso % (Auto) Neut # Lymph # Finney # Eos # Baso # Neutrophils % (Manual) Band Neutrophils % Lymphocytes % (Manual) Monocytes % (Manual) Nucleated RBC % Platelet Estimate Polychromasia Hypochromasia (manual) Poikilocytosis (manual Anisocytosis (manual) Microcytosis (manual) Macrocytosis (manual) Target Cells Ovalocytes Schistocytes Puncture Site Lr pCO2 31 L pO2 131 H HCO3 23.4 ABG pH 7.45 ABG Total CO2 22.5 ABG O2 Saturation 98.5 H ABG Base Excess -2.0 ABG Hemoglobin 8.7 L ABG Carboxyhemoglobin 1.2 POC ABG HHb (Measured) 1.5 ABG Methemoglobin 0.9 Guy Test Pos A-a O2 Difference 187.0 Respiratory Index 1.4 Hgb O2 Saturation 96.4 Vent Mode Prvc FiO2 50.0 Tidal Volume 400 PEEP 5 Sodium Potassium Chloride Carbon Dioxide Anion Gap BUN Creatinine Est GFR ( Amer) Est GFR (Non-Af Amer) POC Glucose (mg/dL) 322 H 390 H Random Glucose Calcium Phosphorus Magnesium Total Bilirubin AST ALT Alkaline Phosphatase Total Protein Albumin Globulin Albumin/Globulin Ratio 09/23/17 09/23/17 09/23/17 06:09 06:21 06:21 WBC 11.7 H RBC 3.33 L Hgb 8.1 L Hct 26.1 L MCV 78.3 L MCH 24.3 L MCHC 31.0 L RDW 19.8 H Plt Count 232 MPV 9.5 Neut % (Auto) 84.2 H Lymph % (Auto) 8.5 L Finney % (Auto) 6.2 Eos % (Auto) 0.6 Baso % (Auto) 0.5 Neut # 9.9 H Lymph # 1.0 Finney # 0.7 Eos # 0.1 Baso # 0.1 Neutrophils % (Manual) 71 Band Neutrophils % 1 Lymphocytes % (Manual) 23 Monocytes % (Manual) 5 Nucleated RBC % 27 H Platelet Estimate Normal Polychromasia Slight Hypochromasia (manual) Moderate Poikilocytosis (manual Slight Anisocytosis (manual) Slight Microcytosis (manual) Slight Macrocytosis (manual) Slight Target Cells Slight Ovalocytes Slight Schistocytes Slight Puncture Site pCO2 pO2 HCO3 ABG pH ABG Total CO2 ABG O2 Saturation ABG Base Excess ABG Hemoglobin ABG Carboxyhemoglobin POC ABG HHb (Measured) ABG Methemoglobin Guy Test A-a O2 Difference Respiratory Index Hgb O2 Saturation Vent Mode FiO2 Tidal Volume PEEP Sodium 152 H Potassium 4.1 Chloride 118 H Carbon Dioxide 22 Anion Gap 16 BUN 64 H Creatinine 1.7 H Est GFR ( Amer) 35 Est GFR (Non-Af Amer) 29 POC Glucose (mg/dL) 309 H Random Glucose 277 H Calcium 7.9 L Phosphorus 2.4 L Magnesium 2.0 Total Bilirubin 0.7 AST 29 ALT 28 Alkaline Phosphatase 58 Total Protein 5.1 L Albumin 2.7 L Globulin 2.4 Albumin/Globulin Ratio 1.1 09/23/17 11:40 WBC RBC Hgb Hct MCV MCH MCHC RDW Plt Count MPV Neut % (Auto) Lymph % (Auto) Finney % (Auto) Eos % (Auto) Baso % (Auto) Neut # Lymph # Finney # Eos # Baso # Neutrophils % (Manual) Band Neutrophils % Lymphocytes % (Manual) Monocytes % (Manual) Nucleated RBC % Platelet Estimate Polychromasia Hypochromasia (manual) Poikilocytosis (manual Anisocytosis (manual) Microcytosis (manual) Macrocytosis (manual) Target Cells Ovalocytes Schistocytes Puncture Site pCO2 pO2 HCO3 ABG pH ABG Total CO2 ABG O2 Saturation ABG Base Excess ABG Hemoglobin ABG Carboxyhemoglobin POC ABG HHb (Measured) ABG Methemoglobin Guy Test A-a O2 Difference Respiratory Index Hgb O2 Saturation Vent Mode FiO2 Tidal Volume PEEP Sodium Potassium Chloride Carbon Dioxide Anion Gap BUN Creatinine Est GFR ( Amer) Est GFR (Non-Af Amer) POC Glucose (mg/dL) 251 H Random Glucose Calcium Phosphorus Magnesium Total Bilirubin AST ALT Alkaline Phosphatase Total Protein Albumin Globulin Albumin/Globulin Ratio Fingerstick Blood Sugar Results: 251 Review of Systems - Review of Systems Systems not reviewed;Unavailable: Intubated Critical Care Progress Note - Nutrition Nutrition: Nutrition Category Date Time Status NPO Diet [DIET] Diets 09/20/17 Dinner Active Assessment/Plan - Assessment and Plan (Free Text) Assessment: Patient is an 81 year old female presenting with NSTEMI, acute renal failure and acute hypoxemic respiratory failure. Plan: Cardio: Cardio consult, Dr. Dunbar, help appreciated ECHO 09/10 - EF 50-55%, anterior and apical septum hypokinetic; MR mod.-severe ; TR mod.; Pulmonary HTN mod-severe repeat ECHO 09/22 - awaiting official report BP controlled Trop increased to 3.78 (09/20) - on admission 09/10 - 0.646/0.485/0.551/1.030 Aspirin 81mg PO daily Crestor 2.5 mg PO HS due to second jump of trop on 09/20, second NSTEMI suspected. Cardio recs - Cardiac cath showed triple vessel disease - Dr. Dunbar offered [place] [facility] [place], awaiting family decision Respiratory: Intubation ABG - pCO2 31/pO2 131/HCO3 23.4/pH 7.45 - vent settings at 400/50/14/5 - placed on CPAP 09/20 CXR 09/22 - Lines and tubes in stable position. Moderate venous congestion. Right hilar prominence. Patchy increased markings at the right lung base. Blunted bilateral costophrenic angles which may represent trace effusions. Mild cardiomegaly. Duoneb 3mL INH q4h Acetylcysteine 6mL PO q12h x 4 doses Solumedrol 40mg IVP q8h x 6 doses Neuro: Propofol drip - discontinued Started on Precedex drip Renal: Nephro consult, Dr. Alatorre, help appreciated Cr 1.7 from 2.1 BUN 64 from 81 Dialysis cath in right femoral - hemo-dialysis to start tonight after cath D5W @ 50ml/hr - discontinued Lasix 40mg IVP BID GI: OGT On [facility] tube feedings ISS Prophylactic Care: Heparin 5000u SC q8h Protonix 40mg IVP daily Case discussed with Dr. Shakeel Wheat PGY1 <Aneta Wiggins - Last Filed: 09/23/17 18:28> CCU Subjective - Physician Review Critical Care Time Spent (in minutes): 45 CCU Objective - Vital Signs / Intake & Output Vital Signs (Last 4 hours): Vital Signs Temp Pulse Resp BP Pulse Ox 09/23/17 18:02 66 24 97/35 L 100 09/23/17 18:00 98.8 F 67 24 97/35 L 100 09/23/17 17:48 69 22 105/44 L 100 09/23/17 17:45 72 22 100 09/23/17 17:33 60 24 99/36 L 99 09/23/17 17:30 60 26 H 99 09/23/17 17:19 60 24 89/32 L 98 09/23/17 17:15 65 25 H 98 09/23/17 17:04 71 25 H 139/25 L 99 09/23/17 17:00 98.6 F 71 25 H 139/25 L 99 09/23/17 16:48 60 25 H 116/35 L 100 09/23/17 16:45 50 L 25 H 100 09/23/17 16:33 56 L 24 100/35 L 09/23/17 16:30 98.6 F 64 23 100/35 L 09/23/17 16:18 88 11 L 115/47 L 09/23/17 16:03 93 H 18 124/41 L 09/23/17 16:00 98.5 F 92 H 20 124/41 L 100 09/23/17 15:48 82 23 118/46 L 09/23/17 15:45 93 H 21 09/23/17 15:33 73 24 106/41 L 100 09/23/17 15:30 99.1 F 56 L 26 H 106/41 L 99 09/23/17 15:16 66 24 102/40 L 100 09/23/17 15:15 99.0 F 69 21 102/40 L 100 09/23/17 15:00 99.2 F 58 L 14 95/42 L 100 09/23/17 14:56 67 14 95/42 L 100 09/23/17 14:45 98.9 F 62 14 104/39 L 100 09/23/17 14:42 60 14 104/39 L 09/23/17 14:30 98.8 F 84 12 145/39 L 09/23/17 14:27 79 19 145/39 L Intake and Output (Last 8hrs): Intake & Output 09/23/17 09/23/17 09/23/17 06:59 14:59 22:59 Intake Total 461.2 406.6 56.5 Output Total 300 260 55 Balance 161.2 146.6 1.5 Weight 96 lb 11.2 oz Intake: IV 80 40 Intake, IV Amount 431.2 176.6 16.5 Right PICC #1 31.2 26.6 16.5 Right PICC #2 400 150 Oral 150 Tube Feeding 30 0 0 Output: Urine 300 260 55 Urethral (Garcia) 300 260 55 Other: # Bowel Movements 0 0 - Medications Active Medications: Active Medications Generic Name Dose Route Start Last Admin Trade Name Freq PRN Reason Stop Dose Admin Acetylcysteine 6 ml 09/23/17 10:00 09/23/17 09:27 Acetylcysteine 20% PO 09/24/17 22:01 6 ml Q12 GLADYS Administration Albuterol/Ipratropium 3 ml 09/20/17 12:00 09/23/17 15:01 Duoneb 3 Mg/0.5 Mg (3 Ml) Ud INH 3 ml RQ4 GLADYS Administration Aspirin 81 mg 09/22/17 10:15 09/23/17 09:18 Aspirin Chewable PO 81 mg DAILY GLADYS Administration Dextrose 0 ml 09/10/17 17:21 Dextrose 50% Inj IV STAT PRN Hypoglycemia Protocol Protocol Dextrose 0 gm 09/10/17 17:21 Glutose 15 PO ONCE PRN Hypoglycemia Protocol Protocol Diltiazem HCl 30 mg 09/23/17 10:00 09/23/17 16:08 Cardizem PO Not Given Q6H GLADYS Epoetin Sarath 10,000 unit 09/15/17 10:00 09/22/17 10:18 Procrit SC 10,000 unit TTS GLADYS Administration Furosemide 40 mg 09/22/17 09:32 Lasix IVP BID GLADYS Glucagon 0 mg 09/10/17 17:21 Glucagen Diagnostic Kit IM STAT PRN Hypoglycemia Protocol Protocol Heparin Sodium (Porcine) 5,000 units 09/20/17 22:00 09/23/17 15:26 Heparin SC Not Given Q8 GLADYS Dextrose 1,000 mls @ 0 mls/hr 09/10/17 17:21 Dextrose 5% In Water 1000 Ml IV .Q0M PRN Hypoglycemia Protocol Protocol Per Protocol Dexmedetomidine HCl 400 mcg/ 100 mls @ 2.19 mls/hr 09/23/17 15:45 09/23/17 16 :08 Sodium Chloride IV 0.4 mcg/kg/hr TITR PRN 4.38 mls/hr Sedation Administration Protocol 0.2 MCG/KG/HR Insulin Aspart 0 unit 09/16/17 00:00 09/23/17 17:48 Novolog SC 2 unit Q6 GLADYS Administration Protocol Methylprednisolone 40 mg 09/23/17 08:30 09/23/17 15:11 Solu-Medrol IVP 09/24/17 22:01 40 mg Q8 GLADYS Administration Ondansetron HCl 4 mg 09/10/17 17:00 09/13/17 11:01 Zofran Inj IVP 4 mg Q6 PRN Administration Nausea/Vomiting Pantoprazole Sodium 40 mg 09/11/17 10:00 09/23/17 09:18 Protonix Inj IVP 40 mg DAILY GLADYS Administration Rosuvastatin Calcium 2.5 mg 09/10/17 22:00 09/22/17 21:58 Crestor PO 2.5 mg HS GLADYS Administration - Patient Studies Lab Studies: Lab Studies 09/23/17 09/23/17 09/23/17 Range/Units 17:32 11:40 06:21 WBC (4.8-10.8) K/uL RBC (3.80-5.20) Mil/uL Hgb (11.0-16.0) g/dL Hct (34.0-47.0) % MCV (81.0-99.0) fL MCH (27.0-31.0) pg MCHC (33.0-37.0) g/dL RDW (11.5-14.5) % Plt Count (130-400) K/uL MPV (7.2-11.7) fL Neut % (Auto) (50.0-75.0) % Lymph % (Auto) (20.0-40.0) % Finney % (Auto) (0.0-10.0) % Eos % (Auto) (0.0-4.0) % Baso % (Auto) (0.0-2.0) % Neut # (1.8-7.0) K/uL Lymph # (1.0-4.3) K/uL Finney # (0.0-0.8) K/uL Eos # (0.0-0.7) K/uL Baso # (0.0-0.2) K/uL Neutrophils % (Manual) (50-75) % Band Neutrophils % (0-2) % Lymphocytes % (Manual) (20-40) % Monocytes % (Manual) (0-10) % Nucleated RBC % (0-0) % Platelet Estimate (NORMAL) Polychromasia Hypochromasia (manual) Poikilocytosis (manual Anisocytosis (manual) Microcytosis (manual) Macrocytosis (manual) Target Cells Ovalocytes Schistocytes Puncture Site pCO2 (35-45) mm/Hg pO2 (80-100) mm/Hg HCO3 (21-28) mmol/L ABG pH (7.35-7.45) ABG Total CO2 (22-28) mmol/L ABG O2 Saturation (95-98) % ABG Base Excess (-2.0-3.0) mmol/L ABG Hemoglobin (11.7-17.4) g/dL ABG Carboxyhemoglobin (0.5-1.5) % POC ABG HHb (Measured) (0.0-5.0) % ABG Methemoglobin (0.0-3.0) % Guy Test A-a O2 Difference mm/Hg Respiratory Index Hgb O2 Saturation (95.0-98.0) % Vent Mode FiO2 % Tidal Volume PEEP Sodium 152 H (132-148) mmol/L Potassium 4.1 (3.6-5.2) mmol/L Chloride 118 H (98-107) mmol/L Carbon Dioxide 22 (22-30) mmol/L Anion Gap 16 (10-20) BUN 64 H (7-17) mg/dL Creatinine 1.7 H (0.7-1.2) mg/dL Est GFR ( Amer) 35 Est GFR (Non-Af Amer) 29 POC Glucose (mg/dL) 233 H 251 H (65-110) mg/dL Random Glucose 277 H (65-105) mg/dL Calcium 7.9 L (8.6-10.4) mg/dl Phosphorus 2.4 L (2.5-4.5) mg/dL Magnesium 2.0 (1.6-2.3) mg/dL Total Bilirubin 0.7 (0.2-1.3) mg/dL AST 29 (14-36) U/L ALT 28 (9-52) U/L Alkaline Phosphatase 58 (38-126) U/L Total Protein 5.1 L (6.3-8.3) g/dL Albumin 2.7 L (3.5-5.0) g/dL Globulin 2.4 (2.2-3.9) gm/dL Albumin/Globulin Ratio 1.1 (1.0-2.1) 09/23/17 09/23/17 09/23/17 Range/Units 06:21 06:09 05:20 WBC 11.7 H (4.8-10.8) K/uL RBC 3.33 L (3.80-5.20) Mil/uL Hgb 8.1 L (11.0-16.0) g/dL Hct 26.1 L (34.0-47.0) % MCV 78.3 L (81.0-99.0) fL MCH 24.3 L (27.0-31.0) pg MCHC 31.0 L (33.0-37.0) g/dL RDW 19.8 H (11.5-14.5) % Plt Count 232 (130-400) K/uL MPV 9.5 (7.2-11.7) fL Neut % (Auto) 84.2 H (50.0-75.0) % Lymph % (Auto) 8.5 L (20.0-40.0) % Finney % (Auto) 6.2 (0.0-10.0) % Eos % (Auto) 0.6 (0.0-4.0) % Baso % (Auto) 0.5 (0.0-2.0) % Neut # 9.9 H (1.8-7.0) K/uL Lymph # 1.0 (1.0-4.3) K/uL Finney # 0.7 (0.0-0.8) K/uL Eos # 0.1 (0.0-0.7) K/uL Baso # 0.1 (0.0-0.2) K/uL Neutrophils % (Manual) 71 (50-75) % Band Neutrophils % 1 (0-2) % Lymphocytes % (Manual) 23 (20-40) % Monocytes % (Manual) 5 (0-10) % Nucleated RBC % 27 H (0-0) % Platelet Estimate Normal (NORMAL) Polychromasia Slight Hypochromasia (manual) Moderate Poikilocytosis (manual Slight Anisocytosis (manual) Slight Microcytosis (manual) Slight Macrocytosis (manual) Slight Target Cells Slight Ovalocytes Slight Schistocytes Slight Puncture Site Lr pCO2 31 L (35-45) mm/Hg pO2 131 H (80-100) mm/Hg HCO3 23.4 (21-28) mmol/L ABG pH 7.45 (7.35-7.45) ABG Total CO2 22.5 (22-28) mmol/L ABG O2 Saturation 98.5 H (95-98) % ABG Base Excess -2.0 (-2.0-3.0) mmol/L ABG Hemoglobin 8.7 L (11.7-17.4) g/dL ABG Carboxyhemoglobin 1.2 (0.5-1.5) % POC ABG HHb (Measured) 1.5 (0.0-5.0) % ABG Methemoglobin 0.9 (0.0-3.0) % Guy Test Pos A-a O2 Difference 187.0 mm/Hg Respiratory Index 1.4 Hgb O2 Saturation 96.4 (95.0-98.0) % Vent Mode Prvc FiO2 50.0 % Tidal Volume 400 PEEP 5 Sodium (132-148) mmol/L Potassium (3.6-5.2) mmol/L Chloride (98-107) mmol/L Carbon Dioxide (22-30) mmol/L Anion Gap (10-20) BUN (7-17) mg/dL Creatinine (0.7-1.2) mg/dL Est GFR ( Amer) Est GFR (Non-Af Amer) POC Glucose (mg/dL) 309 H (65-110) mg/dL Random Glucose (65-105) mg/dL Calcium (8.6-10.4) mg/dl Phosphorus (2.5-4.5) mg/dL Magnesium (1.6-2.3) mg/dL Total Bilirubin (0.2-1.3) mg/dL AST (14-36) U/L ALT (9-52) U/L Alkaline Phosphatase (38-126) U/L Total Protein (6.3-8.3) g/dL Albumin (3.5-5.0) g/dL Globulin (2.2-3.9) gm/dL Albumin/Globulin Ratio (1.0-2.1) 09/23/17 Range/Units 00:06 WBC (4.8-10.8) K/uL RBC (3.80-5.20) Mil/uL Hgb (11.0-16.0) g/dL Hct (34.0-47.0) % MCV (81.0-99.0) fL MCH (27.0-31.0) pg MCHC (33.0-37.0) g/dL RDW (11.5-14.5) % Plt Count (130-400) K/uL MPV (7.2-11.7) fL Neut % (Auto) (50.0-75.0) % Lymph % (Auto) (20.0-40.0) % Finney % (Auto) (0.0-10.0) % Eos % (Auto) (0.0-4.0) % Baso % (Auto) (0.0-2.0) % Neut # (1.8-7.0) K/uL Lymph # (1.0-4.3) K/uL Finney # (0.0-0.8) K/uL Eos # (0.0-0.7) K/uL Baso # (0.0-0.2) K/uL Neutrophils % (Manual) (50-75) % Band Neutrophils % (0-2) % Lymphocytes % (Manual) (20-40) % Monocytes % (Manual) (0-10) % Nucleated RBC % (0-0) % Platelet Estimate (NORMAL) Polychromasia Hypochromasia (manual) Poikilocytosis (manual Anisocytosis (manual) Microcytosis (manual) Macrocytosis (manual) Target Cells Ovalocytes Schistocytes Puncture Site pCO2 (35-45) mm/Hg pO2 (80-100) mm/Hg HCO3 (21-28) mmol/L ABG pH (7.35-7.45) ABG Total CO2 (22-28) mmol/L ABG O2 Saturation (95-98) % ABG Base Excess (-2.0-3.0) mmol/L ABG Hemoglobin (11.7-17.4) g/dL ABG Carboxyhemoglobin (0.5-1.5) % POC ABG HHb (Measured) (0.0-5.0) % ABG Methemoglobin (0.0-3.0) % Guy Test A-a O2 Difference mm/Hg Respiratory Index Hgb O2 Saturation (95.0-98.0) % Vent Mode FiO2 % Tidal Volume PEEP Sodium (132-148) mmol/L Potassium (3.6-5.2) mmol/L Chloride (98-107) mmol/L Carbon Dioxide (22-30) mmol/L Anion Gap (10-20) BUN (7-17) mg/dL Creatinine (0.7-1.2) mg/dL Est GFR ( Amer) Est GFR (Non-Af Amer) POC Glucose (mg/dL) 390 H (65-110) mg/dL Random Glucose (65-105) mg/dL Calcium (8.6-10.4) mg/dl Phosphorus (2.5-4.5) mg/dL Magnesium (1.6-2.3) mg/dL Total Bilirubin (0.2-1.3) mg/dL AST (14-36) U/L ALT (9-52) U/L Alkaline Phosphatase (38-126) U/L Total Protein (6.3-8.3) g/dL Albumin (3.5-5.0) g/dL Globulin (2.2-3.9) gm/dL Albumin/Globulin Ratio (1.0-2.1) Laboratory Results - last 24 hr 09/23/17 09/23/17 09/23/17 00:06 05:20 06:09 WBC RBC Hgb Hct MCV MCH MCHC RDW Plt Count MPV Neut % (Auto) Lymph % (Auto) Finney % (Auto) Eos % (Auto) Baso % (Auto) Neut # Lymph # Finney # Eos # Baso # Neutrophils % (Manual) Band Neutrophils % Lymphocytes % (Manual) Monocytes % (Manual) Nucleated RBC % Platelet Estimate Polychromasia Hypochromasia (manual) Poikilocytosis (manual Anisocytosis (manual) Microcytosis (manual) Macrocytosis (manual) Target Cells Ovalocytes Schistocytes Puncture Site Lr pCO2 31 L pO2 131 H HCO3 23.4 ABG pH 7.45 ABG Total CO2 22.5 ABG O2 Saturation 98.5 H ABG Base Excess -2.0 ABG Hemoglobin 8.7 L ABG Carboxyhemoglobin 1.2 POC ABG HHb (Measured) 1.5 ABG Methemoglobin 0.9 Guy Test Pos A-a O2 Difference 187.0 Respiratory Index 1.4 Hgb O2 Saturation 96.4 Vent Mode Prvc FiO2 50.0 Tidal Volume 400 PEEP 5 Sodium Potassium Chloride Carbon Dioxide Anion Gap BUN Creatinine Est GFR ( Amer) Est GFR (Non-Af Amer) POC Glucose (mg/dL) 390 H 309 H Random Glucose Calcium Phosphorus Magnesium Total Bilirubin AST ALT Alkaline Phosphatase Total Protein Albumin Globulin Albumin/Globulin Ratio 09/23/17 09/23/17 09/23/17 06:21 06:21 11:40 WBC 11.7 H RBC 3.33 L Hgb 8.1 L Hct 26.1 L MCV 78.3 L MCH 24.3 L MCHC 31.0 L RDW 19.8 H Plt Count 232 MPV 9.5 Neut % (Auto) 84.2 H Lymph % (Auto) 8.5 L Finney % (Auto) 6.2 Eos % (Auto) 0.6 Baso % (Auto) 0.5 Neut # 9.9 H Lymph # 1.0 Finney # 0.7 Eos # 0.1 Baso # 0.1 Neutrophils % (Manual) 71 Band Neutrophils % 1 Lymphocytes % (Manual) 23 Monocytes % (Manual) 5 Nucleated RBC % 27 H Platelet Estimate Normal Polychromasia Slight Hypochromasia (manual) Moderate Poikilocytosis (manual Slight Anisocytosis (manual) Slight Microcytosis (manual) Slight Macrocytosis (manual) Slight Target Cells Slight Ovalocytes Slight Schistocytes Slight Puncture Site pCO2 pO2 HCO3 ABG pH ABG Total CO2 ABG O2 Saturation ABG Base Excess ABG Hemoglobin ABG Carboxyhemoglobin POC ABG HHb (Measured) ABG Methemoglobin Guy Test A-a O2 Difference Respiratory Index Hgb O2 Saturation Vent Mode FiO2 Tidal Volume PEEP Sodium 152 H Potassium 4.1 Chloride 118 H Carbon Dioxide 22 Anion Gap 16 BUN 64 H Creatinine 1.7 H Est GFR ( Amer) 35 Est GFR (Non-Af Amer) 29 POC Glucose (mg/dL) 251 H Random Glucose 277 H Calcium 7.9 L Phosphorus 2.4 L Magnesium 2.0 Total Bilirubin 0.7 AST 29 ALT 28 Alkaline Phosphatase 58 Total Protein 5.1 L Albumin 2.7 L Globulin 2.4 Albumin/Globulin Ratio 1.1 09/23/17 17:32 WBC RBC Hgb Hct MCV MCH MCHC RDW Plt Count MPV Neut % (Auto) Lymph % (Auto) Finney % (Auto) Eos % (Auto) Baso % (Auto) Neut # Lymph # Finney # Eos # Baso # Neutrophils % (Manual) Band Neutrophils % Lymphocytes % (Manual) Monocytes % (Manual) Nucleated RBC % Platelet Estimate Polychromasia Hypochromasia (manual) Poikilocytosis (manual Anisocytosis (manual) Microcytosis (manual) Macrocytosis (manual) Target Cells Ovalocytes Schistocytes Puncture Site pCO2 pO2 HCO3 ABG pH ABG Total CO2 ABG O2 Saturation ABG Base Excess ABG Hemoglobin ABG Carboxyhemoglobin POC ABG HHb (Measured) ABG Methemoglobin Guy Test A-a O2 Difference Respiratory Index Hgb O2 Saturation Vent Mode FiO2 Tidal Volume PEEP Sodium Potassium Chloride Carbon Dioxide Anion Gap BUN Creatinine Est GFR ( Amer) Est GFR (Non-Af Amer) POC Glucose (mg/dL) 233 H Random Glucose Calcium Phosphorus Magnesium Total Bilirubin AST ALT Alkaline Phosphatase Total Protein Albumin Globulin Albumin/Globulin Ratio Critical Care Progress Note - Nutrition Nutrition: Nutrition Category Date Time Status NPO Diet [DIET] Diets 09/20/17 Dinner Active Assessment/Plan - Assessment and Plan (Free Text) Plan: Patient seen and examined at bedside with above resident. My clinical findings and clinical managemenet documented by above resident. Patient scheduled for cardiac cath in AM. Patient CXr reveals congestion. -avoid nephrotic drugs -Chronic systolic heart failure: continue euvolemia, continue av kaylene blaocker , and statin -Hypoxic respiratory failure: patient tolerated CPAP at 21:5 today, swithc rofm propofol to precedex -CKD: scheduled for HD today -continue Ng tube feeds post procedure -1200 mg of oral/NG mucomyst q12 x4 -continue dvt/pud ppx cc time 45 minutes prognosis guarded.
--- NOTE | 2017-09-23 16:47 | PN ---
DATE: FOLLOWUP SUBJECTIVE: The patient underwent cardiac catheterization. She tolerated procedure well. She had a dominant left carotid circulation with significant disease involving the proximal LAD, proximal circumflex artery and the proximal first obtuse marginal branch with significant severely depressed ejection fraction, which was estimated at 35%. Severe anteroapical and inferoapical hypokinesis. Moderate aortic insufficiency. I discussed the case with Dr. Mccabe, the cardiothoracic surgeon at [facility] after I got the approval from the family. Dr. Mccabe is willing to accept the patient in [facility] by tomorrow and decide about bypass surgery after further evaluation of the patient and the coronary angiogram and discussing the case with the family. I presented this to family's option and gave them the phone number of Dr. Mccabe to further discuss the issue with him. A copy of the CD of the cardiac catheterization was made available with the patient's chart as just in case of transfer and I did sign the EMTALA form that will definitely have to be signed by the family before managing the transfer. The patient at this time is currently undergoing hemodialysis. In my opinion, the patient is a very high risk surgical candidate and decision of surgery will be left to the cardiothoracic surgeon. Elvis Dunbar MD
--- NOTE | 2017-09-23 19:34 | CARDCATH ---
PROCEDURE DATE: LEFT HEART CATHETERIZATION The patient is an 81-year-old female who has a history of hypertension, diabetes mellitus who was initially admitted because of hypotension and shortness of breath and developed respiratory failure, required intubation and mechanical ventilation who was extubated once, but required reintubation again. [id number] myocardial infarction was ruled in and echocardiography study was consistent with segmental apical and septal hypokinesis. High-risk cardiac catheterization was recommended. The risks were fully explained to the patient and her family including risks of stroke, another heart attack, cardiac arrest as well as the definite initiation of hemodialysis. A hemodialysis access was placed 2 days ago; however, the patient's family declined cardiac catheterization yesterday and they agreed for it today. PROCEDURE OF PROCEDURE: After local infiltration of the left groin with 1% lidocaine, a 6-Venezuelan sheath was placed in the left femoral artery. Left and right coronary angiography were performed with 5-Venezuelan JL4 and JR4 diagnostic catheters. Left ventriculogram and aortogram were performed with a 5-Venezuelan pigtail catheter. The choice of 5-Venezuelan was because of the severe peripheral atherosclerosis that would not allow advancement of a 6-Venezuelan catheter. The patient tolerated the procedure well. ANGIOGRAPHIC FINDINGS: Selective injection of left coronary artery revealed left main to be a normal vessel. Left main trifurcated into medium-sized LAD and a medium-sized dominant circumflex artery. LAD has 80% proximal stenosis. The circumflex artery has 70% proximal stenosis and the first obtuse marginal branch has 90% proximal stenosis. Nonselective injection of right coronary artery revealed a small nondominant vessel that was angiographically unremarkable. Left ventriculogram performed in MARCANO projection revealed anterior apical and inferoapical hypokinesis. Overall ejection fraction estimated at 35%. Aortography performed in KOREAN projection revealed heavily calcific aortic root and arch with moderate aortic insufficiency. ASSESSMENT: Significant 2-vessel coronary artery disease with 80% proximal left anterior descending stenosis, 90% first obtuse marginal branch stenosis, and 70% proximal circumflex artery stenosis and a dominant circumflex circulation with severely depressed ejection and moderate aortic insufficiency. RECOMMENDATIONS: The patient will remain on medical management for now. Hemodialysis will be initiated and the case will be discussed with a cardiothoracic surgeon. Elvis Hannallah, MD
[2017-09-23] MEDS ORDERED: Sodium Chloride 0.9% 250 ML IV ONE (19:55)
[2017-09-23] MEDS: Rosuvastatin Calcium 2.5 mg Tab PO SCH (21:17)
--- NOTE | 2017-09-23 22:32 | CP.PCM.PN ---
Subjective - Date & Time of Evaluation Date of Evaluation: 09/23/17 Time of Evaluation: 20:15 - Subjective Subjective: Appears comfortable Objective - Vital Signs/Intake and Output Vital Signs (last 24 hours): Temp Pulse Resp BP Pulse Ox 98.2 F 49 L 14 91/26 L 100 09/23/17 21:00 09/23/17 21:00 09/23/17 21:00 09/23/17 21:00 09/23/17 21:00 Intake and Output: 09/23/17 09/24/17 18:59 06:59 Intake Total 463.1 379.4 Output Total 1115 70 Balance -651.9 309.4 - Medications Medications: Current Medications Acetylcysteine (Acetylcysteine 20%) 6 ml PO Q12 [facility] Stop: 09/24/17 22:01 Last Admin: 09/23/17 21:17 Dose: 6 ml Albuterol/Ipratropium (Duoneb 3 Mg/0.5 Mg (3 Ml) Ud) 3 ml INH RQ4 [facility] Last Admin: 09/23/17 19:54 Dose: 3 ml Aspirin (Aspirin Chewable) 81 mg PO DAILY [facility] Last Admin: 09/23/17 09:18 Dose: 81 mg Dextrose (Dextrose 50% Inj) 0 ml IV STAT PRN; Protocol PRN Reason: Hypoglycemia Protocol Dextrose (Glutose 15) 0 gm PO ONCE PRN; Protocol PRN Reason: Hypoglycemia Protocol Epoetin Sarath (Procrit) 10,000 unit SC TTS [facility] Last Admin: 09/22/17 10:18 Dose: 10,000 unit Furosemide (Lasix) 40 mg IVP BID [facility] Glucagon (Glucagen Diagnostic Kit) 0 mg IM STAT PRN; Protocol PRN Reason: Hypoglycemia Protocol Heparin Sodium (Porcine) (Heparin) 5,000 units SC Q8 [facility] Last Admin: 09/23/17 21:17 Dose: 5,000 units Dextrose (Dextrose 5% In Water 1000 Ml) 1,000 mls @ 0 mls/hr IV .Q0M PRN; Protocol; Per Protocol PRN Reason: Hypoglycemia Protocol Insulin Aspart (Novolog) 0 unit SC Q6 [facility] PRN Reason: Protocol Last Admin: 09/23/17 17:48 Dose: 2 unit Methylprednisolone (Solu-Medrol) 40 mg IVP Q8 [facility] Stop: 09/24/17 22:01 Last Admin: 09/23/17 21:18 Dose: 40 mg Ondansetron HCl (Zofran Inj) 4 mg IVP Q6 PRN PRN Reason: Nausea/Vomiting Last Admin: 09/13/17 11:01 Dose: 4 mg Pantoprazole Sodium (Protonix Inj) 40 mg IVP DAILY [facility] Last Admin: 09/23/17 09:18 Dose: 40 mg Rosuvastatin Calcium (Crestor) 2.5 mg PO HS [facility] Last Admin: 09/23/17 21:17 Dose: 2.5 mg - Labs Labs: 09/23/17 06:21 09/23/17 06:21 PT 10.3 SECONDS (9.7-12.2) 09/10/17 13:52 INR 0.9 09/10/17 13:52 APTT 34 SECONDS (21-34) 09/10/17 13:52 - Head Exam Head Exam: ATRAUMATIC - Eye Exam Eye Exam: Normal appearance - ENT Exam ENT Exam: Mucous Membranes Dry - Respiratory Exam Respiratory Exam: NORMAL BREATHING PATTERN - Cardiovascular Exam Cardiovascular Exam: +S1, +S2 - GI/Abdominal Exam GI & Abdominal Exam: Normal Bowel Sounds Assessment and Plan (1) Anemia Assessment & Plan: iron deficiency s/p Ferrlecit anemia of CKD on Procrit Status: Chronic
--- NOTE | 2017-09-23 23:47 | CP.PCM.PN ---
Subjective - Date & Time of Evaluation Date of Evaluation: 09/23/17 Time of Evaluation: 16:45 - Subjective Subjective: Medical Attending Note Patient seen, examined and case discussed with ICU, Pulm, cardiology, nephrology and palliative care. Patient seen during her HD session, unable to ROS, patient is agitated and moving. Patient underwent cardiac cath today with cardiology. I spoke with patient's niece Caitlin who has been the call or contact centre manager for the family who was visibly upset. Family had conversation with the cardiology prior my encounter in regards to result of cardiac catherization. Discussed with cardiology, will speak with cardiothoracic surgeon to for evaluation, reports patient is high risk from his perspective, reporting coronary artery disease and associated aortic insuffiency. Discussed with nephrology, will start dialysis following cardiac cath. Patient seen during her session with HD. Patient moving but is confused. Unable to provide ROS. I spoke with palliative care, Keerthi who had spoken with family, in regards to goals of care given patient comes from extended family of brothers and sisters. Objective - Vital Signs/Intake and Output Vital Signs (last 24 hours): Temp Pulse Resp BP Pulse Ox 98.2 F 58 L 12 114/28 L 100 09/23/17 21:00 09/23/17 23:00 09/23/17 23:00 09/23/17 22:51 09/23/17 23:00 Intake and Output: 09/23/17 09/24/17 18:59 06:59 Intake Total 463.1 439.4 Output Total 1115 135 Balance -651.9 304.4 - Medications Medications: Current Medications Acetylcysteine (Acetylcysteine 20%) 6 ml PO Q12 [facility] Stop: 09/24/17 22:01 Last Admin: 09/23/17 21:17 Dose: 6 ml Albuterol/Ipratropium (Duoneb 3 Mg/0.5 Mg (3 Ml) Ud) 3 ml INH RQ4 [facility] Last Admin: 09/23/17 19:54 Dose: 3 ml Aspirin (Aspirin Chewable) 81 mg PO DAILY [facility] Last Admin: 09/23/17 09:18 Dose: 81 mg Dextrose (Dextrose 50% Inj) 0 ml IV STAT PRN; Protocol PRN Reason: Hypoglycemia Protocol Dextrose (Glutose 15) 0 gm PO ONCE PRN; Protocol PRN Reason: Hypoglycemia Protocol Epoetin Sarath (Procrit) 10,000 unit SC TTS [facility] Last Admin: 09/22/17 10:18 Dose: 10,000 unit Furosemide (Lasix) 40 mg IVP BID [facility] Glucagon (Glucagen Diagnostic Kit) 0 mg IM STAT PRN; Protocol PRN Reason: Hypoglycemia Protocol Heparin Sodium (Porcine) (Heparin) 5,000 units SC Q8 [facility] Last Admin: 09/23/17 21:17 Dose: 5,000 units Dextrose (Dextrose 5% In Water 1000 Ml) 1,000 mls @ 0 mls/hr IV .Q0M PRN; Protocol; Per Protocol PRN Reason: Hypoglycemia Protocol Insulin Aspart (Novolog) 0 unit SC Q6 [facility] PRN Reason: Protocol Last Admin: 09/23/17 17:48 Dose: 2 unit Methylprednisolone (Solu-Medrol) 40 mg IVP Q8 [facility] Stop: 09/24/17 22:01 Last Admin: 09/23/17 21:18 Dose: 40 mg Ondansetron HCl (Zofran Inj) 4 mg IVP Q6 PRN PRN Reason: Nausea/Vomiting Last Admin: 09/13/17 11:01 Dose: 4 mg Pantoprazole Sodium (Protonix Inj) 40 mg IVP DAILY [facility] Last Admin: 09/23/17 09:18 Dose: 40 mg Rosuvastatin Calcium (Crestor) 2.5 mg PO HS [facility] Last Admin: 09/23/17 21:17 Dose: 2.5 mg - Labs Labs: 09/23/17 06:21 09/23/17 06:21 PT 10.3 SECONDS (9.7-12.2) 09/10/17 13:52 INR 0.9 09/10/17 13:52 APTT 34 SECONDS (21-34) 09/10/17 13:52 - Constitutional Appears: Confused, Chronically Ill - Head Exam Head Exam: NORMAL INSPECTION - Respiratory Exam Respiratory Exam: Decreased Breath Sounds. absent: Stridor - Cardiovascular Exam Cardiovascular Exam: Tachycardia, +S1, +S2 - GI/Abdominal Exam GI & Abdominal Exam: Soft, Normal Bowel Sounds. absent: Distended, Firm, Guarding, Rigid, Tenderness, Rebound Additional comments: HD catheter over right lower extremity SCDS b/l left cath site: clean/dry/intact - Extremities Exam Extremities Exam: absent: Pedal Edema Assessment and Plan (1) Acute renal failure Status: Acute (2) Non-STEMI (non-ST elevated myocardial infarction) Status: Acute (3) Diabetes Status: Chronic (4) Hypotension Status: Deleted (5) Hypertension Status: Chronic (6) Anemia Status: Chronic (7) Elevated brain natriuretic peptide (BNP) level Status: Acute (8) Polypharmacy Status: Inactive (9) Pneumonia Status: Suspected (10) Vertigo Status: Acute (11) Prophylactic measure Status: Acute Attending/Attestation - Attestation I have personally seen and examined this patient.: Yes I have fully participated in the care of the patient.: Yes I have reviewed all pertinent clinical information, including history, physical exam and plan: Yes Notes (Text): Assessment/Plan (1) Acute Renal Failure and Electrolyte Imbalance Assessment & Plan: * Nephrology Dr. Chowdhury/Landry is following-->help appreciated * Order for cui and monitor output 09/20 * Given fluid challenge 09/20-->will need to monitor urine output * Dialysis catheter placed 09/21 * patient start dialysis 09/23 following cardiac cath (2) Systolic Heart Failure secondary to Coronary Artery Disease * Cardiology: Dr Dunbar is following * Echocardiogram 09/10/17 showed EF of 58% with hypokinetic anterior and apical septum and Grade I Abnormal Relaxation Patter. Moderate Tricuspid regurgitation and moderate to severe pulmonary HTN * Discussed cardiac cath result with cardiology, LAD and OM and moderate aortic insuffiency; will ask cardiothoracic surgery to evaluate but per cardiology, reports is high risk candidate * On aspirin, beta felipe, statin, off michela/arb given acute kidney insufficiency * f/u intake and output * f/u daily weight (lost about 10lbs) (3) Acute Respiratory Failure * Patient intubated and placed on vent by ICU team 09/13/17 and was successfully extubated 09/16/17; patient reintubated on 09/22/17 noted larynegal edema; started on Solumedrol steroids 09/23 * Echocardiogram 09/10/17 showed EF of 58% with hypokinetic anterior and apical septum and Grade I Abnormal Relaxation Patter. Moderate Tricuspid regurgitation and moderate to severe pulmonary HTN * Chest xray PA and Lateral 09/1909/20/17: interval development of right upper lobe and left lower lobe consolidation and small pleural effusion. Persistent mild cardiomegaly and mild pulmonary venous congestion * Patient's sputum grew Staph aureus - for which patient is 09/19 on Ancef 1 gram Q8H * Pulmonary (Dr. Blair) consult-->patient noted worsening acute respiratory distress, placed back on Bipap; confirmed code status with niece who was present at bedside 09/20- * Patient needed to be re-intubated 09/21/17 given agonal breathing; transferred to ICU. Further management per ICU. (4) Staph Aureus Pneumonia * ID Dr. Smith is following * Fever of 100.7 on 09/15/17 and patient was started on Vancomycin secondary to Sputum Culture 09/13/17 shows preliminary Staph aureus. However, Chest X Ray 09/16/17 did not show any infiltrates and as the leukocytosis has resolved, ICU Team discontinued the Vancomycin 09/16/17. * Blood Culture 09/10/17 is Negative To Date * Urine Culture 09/10/17 showed multiple species therefore another Urine Culture ordered 09/13/17-->pending * Patient's sputum grew Staph aureus * IV Abx: Ancef 1 gram IV Q8H (active since 09/19/17) (5) NONSTEMI Assessment & Plan: * Cardiology Dr. Dunbar on board--> help appreciated * Completed cardiac cath 09/23-->coronary artery disease, LAD,OM, and circumflex with moderate aortic insuffiency; will speak with cardiothoracic surgeon at [facility] for evaluation but reports patient is high risk * Family understands that given her cardiac risk factors, diabetes hypertension , which are chronic, will impact the heart 09/22-->i personally spoke with the family with assistance of Narcisa, patient's other niece who helped to translate from Kittitian to Urdu to patient's family. * On Aspirin 81mg PO daily * Crestor 2.5mg PO qHS * On beta-felipe (6) Diabetes 2 Assessment & Plan: * HgBa1c: 7.8 * Hypoglycemia protocol * Crestor 2.5mg PO qHS * Off metformin, glipizide on admission given acute renal failure * Aspart sliding scale * On Glucerna feedings Status: Chronic (7) Hypotension on admission History of Hypertension Assessment & Plan: * Off anti-hypertensives (Hydralazine, Metoprolol XL, Amlodipine, Losartan/HCTZ , Lasix, Imdur) because of hypotension upon admission * Patient start first dialysis session 09/23/17 Status: Chronic (8) Anemia Assessment & Plan: * Heme/Onc Dr. Toña Lentz * retic count: 2.2 * Iron: 44 * TIBC: 220 * iron saturation: 20 * Ferritin: 31 * Ferrlicit 125 mg IV 1x/day through 09/22/17 * ProCrit 10,000 Units SC T-T-S * HgB dropped to 7.0 and 2 units PRBC transfused 09/12/17. HgB/Hct is currently stable. * Serum Immunofixation with faint band in IgG and Lambda likely reactive. Repeat Serum Immunofixation in 3 to 6 months as outpatient. * Stool Occult Blood 09/10/17 and 09/13/17 are negative Status: Chronic (9) Polypharmacy Assessment & Plan: * Held home medications on admission including PO diabetic and anti- hypertensive medications. 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 Code status: Full. Palliative care on board. Disposition: Patient completed cardiac cath, underwent 1st dialysis session, and awaiting evaluation for possible CABG/transfer with cardiothoracic surgeon. Further management per ICU
[2017-09-24] MEDS: Albuterol-Ipratrop 3 mg / 0.5 (3 ml) UD INH SCH ×4 (00:42→11:20)
[2017-09-24] MEDS: (Novolog) Insulin Aspart, Recombinant 100 u/ml 10 ml vial SC SCH ×5 (01:20→23:28)
[2017-09-24] MEDS: MethylPREDNISolone 40 mg Vial IVP SCH ×3 (05:57→22:04)
[2017-09-24 06:06] LABS: ABG ALLEN TEST POS; ABG MECHANICAL RATE 14; ARTERIAL BLOOD GAS MODE PRVC; ARTERIAL BLOOD HGB O2 SAT 96.5 % (95.0-98.0); ATERIAL BLOOD GAS PEEP 5; CARBOXYHEMOGLOBIN 1.1 % (0.5-1.5); DRAW SITE RR; HHB 1.7 % (0.0-5.0); METHEMOGLOBIN 0.7 % (0.0-3.0)
[2017-09-24 06:58] LABS: BASO % 0.1 % (0.0-2.0); HEMATOCRIT 24.1 % (34.0-47.0); LYMPH # 0.6 K/uL (1.0-4.3); MEAN CELL VOLUME 78.2 fL (81.0-99.0); MEAN CORPUSCULAR HEMOGLOBIN 24.5 pg (27.0-31.0); MEAN CORPUSCULAR HGB CONC 31.4 g/dL (33.0-37.0); MONO # 0.6 K/uL (0.0-0.8); MONO % 4.2 % (0.0-10.0); NRBC % 4.1 % (0.0-2.0); PLATELET COUNT 183 K/uL (130-400); RED CELL DISTRIBUTION WIDTH 19.4 % (11.5-14.5); WHITE BLOOD COUNT 14.7 K/uL (4.8-10.8)
[2017-09-24 07:17] LABS: ALB/GLOB RATIO 1.1 (1.0-2.1); BILIRUBIN,TOTAL 0.8 mg/dL (0.2-1.3); CALCIUM 7.7 mg/dl (8.6-10.4); MAGNESIUM 1.9 mg/dL (1.6-2.3); PHOSPHOROUS 4.4 mg/dL (2.5-4.5); POTASSIUM 4.2 mmol/L (3.6-5.2)
--- NOTE | 2017-09-24 08:50 | CP.CCUPN ---
Addendum entered and electronically signed by Bertin Wheat DO 09/24/17 11:39 : Respiratory CXR 09/24 - Interval improvement in the lungs since the previous study. Appropriate position of the ETT. Original Note: <Bertin Wheat - Last Filed: 09/24/17 11:37> CCU Subjective - Physician Review Subjective (Free Text): PGY1 ICU Progress Note for Dr. Aneta Wiggins Patient seen and examined at bedside this morning. Patient is intubated. ROS unattainable. CCU Objective - Vital Signs / Intake & Output Vital Signs (Last 4 hours): Vital Signs Temp Pulse Resp BP Pulse Ox 09/24/17 08:00 98.8 F 93 H 21 100 09/24/17 07:47 95 H 23 133/45 L 100 09/24/17 07:00 96 H 25 H 100 09/24/17 06:47 90 23 130/46 L 100 09/24/17 06:00 85 25 H 09/24/17 05:47 96 H 25 H 123/41 L 09/24/17 05:00 94 H 28 H 100 09/24/17 04:50 100 H 17 124/34 L 100 Intake and Output (Last 8hrs): Intake & Output 09/23/17 09/24/17 09/24/17 22:59 06:59 14:59 Intake Total 465.9 240 60 Output Total 960 270 30 Balance -494.1 -30 30 Weight 96 lb 1.6 oz 97 lb 9.6 oz Intake: IV 40 Intake, IV Amount 270.9 Right PICC #1 20.9 Right PICC #2 250 Tube Feeding 55 240 60 Other 100 Output: Drainage 800 HD fluid removal 800 Urine 160 270 30 Urethral (Garcia) 160 270 30 Other: # Bowel Movements 0 0 0 - Physical Exam Head: Positive for: Atraumatic, Normocephalic Pupils: Positive for: PERRL Mouth: Positive for: Other (intubated) Respiratory/Chest: Positive for: Clear to Auscultation, Good Air Exchange, Other (intubated) Cardiovascular: Positive for: Regular Rate and Rhythm, Normal S1, S2 Abdomen: Negative for: Tenderness, Distention Genitourinary/Pelvic Exam: Positive for: Other (hemodialysis catheter inserted in R femoral) Lower Extremity: Positive for: Other (SCDs in place) Neurological: Positive for: Other (intubated) Skin: Positive for: Warm, Dry Psychiatric: Positive for: Other (intubated) - Medications Active Medications: Active Medications Generic Name Dose Route Start Last Admin Trade Name Freq PRN Reason Stop Dose Admin Acetylcysteine 6 ml 09/23/17 10:00 09/23/17 21:17 Acetylcysteine 20% PO 09/24/17 22:01 6 ml Q12 GLADYS Administration Albuterol/Ipratropium 3 ml 09/20/17 12:00 09/24/17 07:55 Duoneb 3 Mg/0.5 Mg (3 Ml) Ud INH 3 ml RQ4 GLADYS Administration Aspirin 81 mg 09/22/17 10:15 09/23/17 09:18 Aspirin Chewable PO 81 mg DAILY GLADYS Administration Dextrose 0 ml 09/10/17 17:21 Dextrose 50% Inj IV STAT PRN Hypoglycemia Protocol Protocol Dextrose 0 gm 09/10/17 17:21 Glutose 15 PO ONCE PRN Hypoglycemia Protocol Protocol Epoetin Sarath 10,000 unit 09/15/17 10:00 09/22/17 10:18 Procrit SC 10,000 unit TTS GLADYS Administration Furosemide 40 mg 09/22/17 09:32 Lasix IVP BID GLADYS Glucagon 0 mg 09/10/17 17:21 Glucagen Diagnostic Kit IM STAT PRN Hypoglycemia Protocol Protocol Heparin Sodium (Porcine) 5,000 units 09/20/17 22:00 09/24/17 05:57 Heparin SC 5,000 units Q8 GLADYS Administration Dextrose 1,000 mls @ 0 mls/hr 09/10/17 17:21 Dextrose 5% In Water 1000 Ml IV .Q0M PRN Hypoglycemia Protocol Protocol Per Protocol Insulin Aspart 0 unit 09/16/17 00:00 09/24/17 06:11 Novolog SC 4 unit Q6 GLADYS Administration Protocol Methylprednisolone 40 mg 09/23/17 08:30 09/24/17 05:57 Solu-Medrol IVP 09/24/17 22:01 40 mg Q8 GLADYS Administration Ondansetron HCl 4 mg 09/10/17 17:00 09/13/17 11:01 Zofran Inj IVP 4 mg Q6 PRN Administration Nausea/Vomiting Pantoprazole Sodium 40 mg 09/11/17 10:00 09/23/17 09:18 Protonix Inj IVP 40 mg DAILY GLADYS Administration Rosuvastatin Calcium 2.5 mg 09/10/17 22:00 09/23/17 21:17 Crestor PO 2.5 mg HS GLADYS Administration - Patient Studies Lab Studies: Lab Studies 09/24/17 09/24/17 09/24/17 Range/Units 06:48 06:48 06:01 WBC 14.7 H (4.8-10.8) K/uL RBC 3.08 L (3.80-5.20) Mil/uL Hgb 7.5 L (11.0-16.0) g/dL Hct 24.1 L (34.0-47.0) % MCV 78.2 L (81.0-99.0) fL MCH 24.5 L (27.0-31.0) pg MCHC 31.4 L (33.0-37.0) g/dL RDW 19.4 H (11.5-14.5) % Plt Count 183 (130-400) K/uL MPV 10.0 (7.2-11.7) fL Neut % (Auto) 91.7 H (50.0-75.0) % Lymph % (Auto) 4.0 L (20.0-40.0) % [place] % (Auto) 4.2 (0.0-10.0) % Eos % (Auto) 0.0 (0.0-4.0) % Baso % (Auto) 0.1 (0.0-2.0) % Neut # 13.5 H (1.8-7.0) K/uL Lymph # 0.6 L (1.0-4.3) K/uL [place] # 0.6 (0.0-0.8) K/uL Eos # 0.0 (0.0-0.7) K/uL Baso # 0.0 (0.0-0.2) K/uL Puncture Site pCO2 (35-45) mm/Hg pO2 (80-100) mm/Hg HCO3 (21-28) mmol/L ABG pH (7.35-7.45) ABG Total CO2 (22-28) mmol/L ABG O2 Saturation (95-98) % ABG Base Excess (-2.0-3.0) mmol/L ABG Hemoglobin (11.7-17.4) g/dL ABG Carboxyhemoglobin (0.5-1.5) % POC ABG HHb (Measured) (0.0-5.0) % ABG Methemoglobin (0.0-3.0) % Guy Test A-a O2 Difference mm/Hg Respiratory Index Hgb O2 Saturation (95.0-98.0) % Vent Mode Mechanical Rate FiO2 % Tidal Volume PEEP Sodium 145 (132-148) mmol/L Potassium 4.2 (3.6-5.2) mmol/L Chloride 110 H (98-107) mmol/L Carbon Dioxide 22 (22-30) mmol/L Anion Gap 17 (10-20) BUN 57 H (7-17) mg/dL Creatinine 1.7 H (0.7-1.2) mg/dL Est GFR ( Amer) 35 Est GFR (Non-Af Amer) 29 POC Glucose (mg/dL) 308 H (65-110) mg/dL Random Glucose 346 H (65-105) mg/dL Calcium 7.7 L (8.6-10.4) mg/dl Phosphorus 4.4 (2.5-4.5) mg/dL Magnesium 1.9 (1.6-2.3) mg/dL Total Bilirubin 0.8 (0.2-1.3) mg/dL AST 43 H D (14-36) U/L ALT 32 (9-52) U/L Alkaline Phosphatase 53 (38-126) U/L Total Protein 5.0 L (6.3-8.3) g/dL Albumin 2.6 L (3.5-5.0) g/dL Globulin 2.4 (2.2-3.9) gm/dL Albumin/Globulin Ratio 1.1 (1.0-2.1) Hep Bs Antigen (NEGATIVE) Hep Bs Antibody (NEGATIVE) Hep B Core IgM Ab (NEGATIVE) Hepatitis C Antibody (NEGATIVE) 09/24/17 09/24/17 09/23/17 Range/Units 05:27 00:42 17:32 WBC (4.8-10.8) K/uL RBC (3.80-5.20) Mil/uL Hgb (11.0-16.0) g/dL Hct (34.0-47.0) % MCV (81.0-99.0) fL MCH (27.0-31.0) pg MCHC (33.0-37.0) g/dL RDW (11.5-14.5) % Plt Count (130-400) K/uL MPV (7.2-11.7) fL Neut % (Auto) (50.0-75.0) % Lymph % (Auto) (20.0-40.0) % [place] % (Auto) (0.0-10.0) % Eos % (Auto) (0.0-4.0) % Baso % (Auto) (0.0-2.0) % Neut # (1.8-7.0) K/uL Lymph # (1.0-4.3) K/uL [place] # (0.0-0.8) K/uL Eos # (0.0-0.7) K/uL Baso # (0.0-0.2) K/uL Puncture Site Rr pCO2 27 L (35-45) mm/Hg pO2 136 H (80-100) mm/Hg HCO3 21.8 (21-28) mmol/L ABG pH 7.46 H (7.35-7.45) ABG Total CO2 20.0 L (22-28) mmol/L ABG O2 Saturation 98.3 H (95-98) % ABG Base Excess -4.0 L (-2.0-3.0) mmol/L ABG Hemoglobin 7.6 L (11.7-17.4) g/dL ABG Carboxyhemoglobin 1.1 (0.5-1.5) % POC ABG HHb (Measured) 1.7 (0.0-5.0) % ABG Methemoglobin 0.7 (0.0-3.0) % Guy Test Pos A-a O2 Difference 115.0 mm/Hg Respiratory Index 0.8 Hgb O2 Saturation 96.5 (95.0-98.0) % Vent Mode Prvc Mechanical Rate 14 FiO2 40.0 % Tidal Volume 400 PEEP 5 Sodium (132-148) mmol/L Potassium (3.6-5.2) mmol/L Chloride (98-107) mmol/L Carbon Dioxide (22-30) mmol/L Anion Gap (10-20) BUN (7-17) mg/dL Creatinine (0.7-1.2) mg/dL Est GFR ( Amer) Est GFR (Non-Af Amer) POC Glucose (mg/dL) 355 H 233 H (65-110) mg/dL Random Glucose (65-105) mg/dL Calcium (8.6-10.4) mg/dl Phosphorus (2.5-4.5) mg/dL Magnesium (1.6-2.3) mg/dL Total Bilirubin (0.2-1.3) mg/dL AST (14-36) U/L ALT (9-52) U/L Alkaline Phosphatase (38-126) U/L Total Protein (6.3-8.3) g/dL Albumin (3.5-5.0) g/dL Globulin (2.2-3.9) gm/dL Albumin/Globulin Ratio (1.0-2.1) Hep Bs Antigen (NEGATIVE) Hep Bs Antibody (NEGATIVE) Hep B Core IgM Ab (NEGATIVE) Hepatitis C Antibody (NEGATIVE) 09/23/17 09/23/17 09/23/17 Range/Units 17:22 17:22 11:40 WBC (4.8-10.8) K/uL RBC (3.80-5.20) Mil/uL Hgb (11.0-16.0) g/dL Hct (34.0-47.0) % MCV (81.0-99.0) fL MCH (27.0-31.0) pg MCHC (33.0-37.0) g/dL RDW (11.5-14.5) % Plt Count (130-400) K/uL MPV (7.2-11.7) fL Neut % (Auto) (50.0-75.0) % Lymph % (Auto) (20.0-40.0) % [place] % (Auto) (0.0-10.0) % Eos % (Auto) (0.0-4.0) % Baso % (Auto) (0.0-2.0) % Neut # (1.8-7.0) K/uL Lymph # (1.0-4.3) K/uL [place] # (0.0-0.8) K/uL Eos # (0.0-0.7) K/uL Baso # (0.0-0.2) K/uL Puncture Site pCO2 (35-45) mm/Hg pO2 (80-100) mm/Hg HCO3 (21-28) mmol/L ABG pH (7.35-7.45) ABG Total CO2 (22-28) mmol/L ABG O2 Saturation (95-98) % ABG Base Excess (-2.0-3.0) mmol/L ABG Hemoglobin (11.7-17.4) g/dL ABG Carboxyhemoglobin (0.5-1.5) % POC ABG HHb (Measured) (0.0-5.0) % ABG Methemoglobin (0.0-3.0) % Guy Test A-a O2 Difference mm/Hg Respiratory Index Hgb O2 Saturation (95.0-98.0) % Vent Mode Mechanical Rate FiO2 % Tidal Volume PEEP Sodium (132-148) mmol/L Potassium (3.6-5.2) mmol/L Chloride (98-107) mmol/L Carbon Dioxide (22-30) mmol/L Anion Gap (10-20) BUN (7-17) mg/dL Creatinine (0.7-1.2) mg/dL Est GFR ( Amer) Est GFR (Non-Af Amer) POC Glucose (mg/dL) 251 H (65-110) mg/dL Random Glucose (65-105) mg/dL Calcium (8.6-10.4) mg/dl Phosphorus (2.5-4.5) mg/dL Magnesium (1.6-2.3) mg/dL Total Bilirubin (0.2-1.3) mg/dL AST (14-36) U/L ALT (9-52) U/L Alkaline Phosphatase (38-126) U/L Total Protein (6.3-8.3) g/dL Albumin (3.5-5.0) g/dL Globulin (2.2-3.9) gm/dL Albumin/Globulin Ratio (1.0-2.1) Hep Bs Antigen Negative (NEGATIVE) Hep Bs Antibody Positive (NEGATIVE) Hep B Core IgM Ab Negative (NEGATIVE) Hepatitis C Antibody Negative (NEGATIVE) Laboratory Results - last 24 hr 09/23/17 09/23/17 09/23/17 11:40 17:22 17:22 WBC RBC Hgb Hct MCV MCH MCHC RDW Plt Count MPV Neut % (Auto) Lymph % (Auto) [place] % (Auto) Eos % (Auto) Baso % (Auto) Neut # Lymph # [place] # Eos # Baso # Puncture Site pCO2 pO2 HCO3 ABG pH ABG Total CO2 ABG O2 Saturation ABG Base Excess ABG Hemoglobin ABG Carboxyhemoglobin POC ABG HHb (Measured) ABG Methemoglobin Guy Test A-a O2 Difference Respiratory Index Hgb O2 Saturation Vent Mode Mechanical Rate FiO2 Tidal Volume PEEP Sodium Potassium Chloride Carbon Dioxide Anion Gap BUN Creatinine Est GFR ( Amer) Est GFR (Non-Af Amer) POC Glucose (mg/dL) 251 H Random Glucose Calcium Phosphorus Magnesium Total Bilirubin AST ALT Alkaline Phosphatase Total Protein Albumin Globulin Albumin/Globulin Ratio Hep Bs Antigen Negative Hep Bs Antibody Positive Hep B Core IgM Ab Negative Hepatitis C Antibody Negative 09/23/17 09/24/17 09/24/17 17:32 00:42 05:27 WBC RBC Hgb Hct MCV MCH MCHC RDW Plt Count MPV Neut % (Auto) Lymph % (Auto) [place] % (Auto) Eos % (Auto) Baso % (Auto) Neut # Lymph # [place] # Eos # Baso # Puncture Site Rr pCO2 27 L pO2 136 H HCO3 21.8 ABG pH 7.46 H ABG Total CO2 20.0 L ABG O2 Saturation 98.3 H ABG Base Excess -4.0 L ABG Hemoglobin 7.6 L ABG Carboxyhemoglobin 1.1 POC ABG HHb (Measured) 1.7 ABG Methemoglobin 0.7 Guy Test Pos A-a O2 Difference 115.0 Respiratory Index 0.8 Hgb O2 Saturation 96.5 Vent Mode Prvc Mechanical Rate 14 FiO2 40.0 Tidal Volume 400 PEEP 5 Sodium Potassium Chloride Carbon Dioxide Anion Gap BUN Creatinine Est GFR ( Amer) Est GFR (Non-Af Amer) POC Glucose (mg/dL) 233 H 355 H Random Glucose Calcium Phosphorus Magnesium Total Bilirubin AST ALT Alkaline Phosphatase Total Protein Albumin Globulin Albumin/Globulin Ratio Hep Bs Antigen Hep Bs Antibody Hep B Core IgM Ab Hepatitis C Antibody 09/24/17 09/24/17 09/24/17 06:01 06:48 06:48 WBC 14.7 H RBC 3.08 L Hgb 7.5 L Hct 24.1 L MCV 78.2 L MCH 24.5 L MCHC 31.4 L RDW 19.4 H Plt Count 183 MPV 10.0 Neut % (Auto) 91.7 H Lymph % (Auto) 4.0 L [place] % (Auto) 4.2 Eos % (Auto) 0.0 Baso % (Auto) 0.1 Neut # 13.5 H Lymph # 0.6 L [place] # 0.6 Eos # 0.0 Baso # 0.0 Puncture Site pCO2 pO2 HCO3 ABG pH ABG Total CO2 ABG O2 Saturation ABG Base Excess ABG Hemoglobin ABG Carboxyhemoglobin POC ABG HHb (Measured) ABG Methemoglobin Guy Test A-a O2 Difference Respiratory Index Hgb O2 Saturation Vent Mode Mechanical Rate FiO2 Tidal Volume PEEP Sodium 145 Potassium 4.2 Chloride 110 H Carbon Dioxide 22 Anion Gap 17 BUN 57 H Creatinine 1.7 H Est GFR ( Amer) 35 Est GFR (Non-Af Amer) 29 POC Glucose (mg/dL) 308 H Random Glucose 346 H Calcium 7.7 L Phosphorus 4.4 Magnesium 1.9 Total Bilirubin 0.8 AST 43 H D ALT 32 Alkaline Phosphatase 53 Total Protein 5.0 L Albumin 2.6 L Globulin 2.4 Albumin/Globulin Ratio 1.1 Hep Bs Antigen Hep Bs Antibody Hep B Core IgM Ab Hepatitis C Antibody EKG/Cardiology Studies: Cardiology / EKG Studies 09/23/17 22:27 EKG [ELECTROCARDIOGRAM] Stat Comment: Mode Of Transportation: PORTABLE Reason For Exam: ARRYTHMIA Fingerstick Blood Sugar Results: 308 Review of Systems - Review of Systems Systems not reviewed;Unavailable: Intubated Critical Care Progress Note - Nutrition Nutrition: Nutrition Category Date Time Status NPO Diet [DIET] Diets 09/20/17 Dinner Active Assessment/Plan - Assessment and Plan (Free Text) Assessment: Patient is an 81 year old female presenting with NSTEMI, acute renal failure and acute hypoxemic respiratory failure. Plan: Cardio: Cardio consult, Dr. Dunbar, help appreciated ECHO 09/10 - EF 50-55%, anterior and apical septum hypokinetic; MR mod.-severe ; TR mod.; Pulmonary HTN mod-severe repeat ECHO 09/22 - awaiting official report BP controlled Trop increased to 3.78 (09/20) - on admission 09/10 - 0.646/0.485/0.551/1.030 Aspirin 81mg PO daily Crestor 2.5 mg PO HS due to second jump of trop on 09/20, second NSTEMI suspected. Cardio recs - Cardiac cath showed triple vessel disease - Dr. Dunbar offered family option to transfer to [facility] tomorrow for CABG, awaiting family decision Respiratory: Intubation WBC - 14.7 ABG - pCO2 27/pO2 136/HCO3 21.8/pH 7.46 - vent settings at 400/40/14/5 CXR 09/22 - Lines and tubes in stable position. Moderate venous congestion. Right hilar prominence. Patchy increased markings at the right lung base. Blunted bilateral costophrenic angles which may represent trace effusions. Mild cardiomegaly. Duoneb 3mL INH q4h Acetylcysteine 6mL PO q12h x 4 doses (2 of 4 doses given so far) Solumedrol 40mg IVP q8h x 6 doses (4 of 6 doses given so far) Neuro: Precedex drip Renal: Nephro consult, Dr. Alatorre, help appreciated Cr 1.7 BUN 57 from 64 Dialysis cath in right femoral - started hemo-dialysis after cath yesterday - will get dialysis today GI: OGT On Glucernia tube feedings ISS Prophylactic Care: Heparin 5000u SC q8h Protonix 40mg IVP daily Case discussed with Dr. Shakeel Wheat PGY1 <Aneta Wiggins - Last Filed: 09/24/17 15:08> CCU Subjective - Physician Review Critical Care Time Spent (in minutes): 35 CCU Objective - Vital Signs / Intake & Output Vital Signs (Last 4 hours): Vital Signs Temp Pulse Resp BP Pulse Ox 09/24/17 14:00 89 24 99 09/24/17 13:48 72 28 H 107/36 L 99 09/24/17 13:00 99 H 13 100 09/24/17 12:47 92 H 28 H 125/45 L 99 09/24/17 12:00 99.2 F 100 H 16 99 09/24/17 11:48 99 H 21 132/99 H 99 Intake and Output (Last 8hrs): Intake & Output 09/24/17 09/24/17 09/24/17 06:59 14:59 22:59 Intake Total 240 249.8 Output Total 270 30 Balance -30 219.8 Weight 97 lb 9.6 oz Intake: IV 1 Intake, IV Amount 8.8 Right PICC #1 8.8 Tube Feeding 240 140 Other 100 Output: Urine 270 30 Urethral (Garcia) 270 30 Other: # Bowel Movements 0 0 - Medications Active Medications: Active Medications Generic Name Dose Route Start Last Admin Trade Name Freq PRN Reason Stop Dose Admin Acetylcysteine 6 ml 09/23/17 10:00 09/24/17 10:38 Acetylcysteine 20% PO 09/24/17 22:01 6 ml Q12 GLADYS Administration Albuterol/Ipratropium 3 ml 09/20/17 12:00 09/24/17 11:20 Duoneb 3 Mg/0.5 Mg (3 Ml) Ud INH Not Given RQ4 GLADYS Aspirin 81 mg 09/22/17 10:15 09/24/17 10:13 Aspirin Chewable PO 81 mg DAILY GLADYS Administration Dextrose 0 ml 09/10/17 17:21 Dextrose 50% Inj IV STAT PRN Hypoglycemia Protocol Protocol Dextrose 0 gm 09/10/17 17:21 Glutose 15 PO ONCE PRN Hypoglycemia Protocol Protocol Diltiazem HCl 30 mg 09/24/17 15:00 Cardizem PO Q8 GLADYS Epoetin Sarath 10,000 unit 09/15/17 10:00 09/24/17 14:13 Procrit SC 10,000 unit TTS GLADYS Administration Glucagon 0 mg 09/10/17 17:21 Glucagen Diagnostic Kit IM STAT PRN Hypoglycemia Protocol Protocol Heparin Sodium (Porcine) 5,000 units 09/20/17 22:00 09/24/17 14:04 Heparin SC 5,000 units Q8 GLADYS Administration Dextrose 1,000 mls @ 0 mls/hr 09/10/17 17:21 Dextrose 5% In Water 1000 Ml IV .Q0M PRN Hypoglycemia Protocol Protocol Per Protocol Dexmedetomidine HCl 400 mcg/ 100 mls @ 2.21 mls/hr 09/24/17 11:37 09/24/17 12 :40 Sodium Chloride IV 0.3 mcg/kg/hr TITR PRN 3.32 mls/hr Anxiety Titration Protocol 0.2 MCG/KG/HR Insulin Aspart 0 unit 09/16/17 00:00 09/24/17 11:56 Novolog SC 3 unit Q6 GLADYS Administration Protocol Methylprednisolone 40 mg 09/23/17 08:30 09/24/17 14:05 Solu-Medrol IVP 09/24/17 22:01 40 mg Q8 GLADYS Administration Ondansetron HCl 4 mg 09/10/17 17:00 09/13/17 11:01 Zofran Inj IVP 4 mg Q6 PRN Administration Nausea/Vomiting Pantoprazole Sodium 40 mg 09/11/17 10:00 09/24/17 10:13 Protonix Inj IVP 40 mg DAILY GLADYS Administration Rosuvastatin Calcium 2.5 mg 09/10/17 22:00 09/23/17 21:17 Crestor PO 2.5 mg HS GLADYS Administration - Patient Studies Lab Studies: Lab Studies 09/24/17 09/24/17 09/24/17 Range/Units 11:48 11:34 06:48 WBC 18.4 H (4.8-10.8) K/uL RBC 3.19 L (3.80-5.20) Mil/uL Hgb 7.7 L (11.0-16.0) g/dL Hct 24.9 L (34.0-47.0) % MCV 78.0 L (81.0-99.0) fL MCH 24.1 L (27.0-31.0) pg MCHC 30.9 L (33.0-37.0) g/dL RDW 19.8 H (11.5-14.5) % Plt Count 201 (130-400) K/uL MPV 9.6 (7.2-11.7) fL Neut % (Auto) 91.4 H (50.0-75.0) % Lymph % (Auto) 3.5 L (20.0-40.0) % [place] % (Auto) 5.0 (0.0-10.0) % Eos % (Auto) 0.0 (0.0-4.0) % Baso % (Auto) 0.1 (0.0-2.0) % Neut # 16.8 H (1.8-7.0) K/uL Lymph # 0.6 L (1.0-4.3) K/uL [place] # 0.9 H (0.0-0.8) K/uL Eos # 0.0 (0.0-0.7) K/uL Baso # 0.0 (0.0-0.2) K/uL Neutrophils % (Manual) 85 H (50-75) % Band Neutrophils % 4 H (0-2) % Lymphocytes % (Manual) 8 L (20-40) % Monocytes % (Manual) 3 (0-10) % Nucleated RBC % 3 H (0-0) % Platelet Estimate Normal (NORMAL) Large Platelets Polychromasia Slight Hypochromasia (manual) Slight Poikilocytosis (manual Slight Anisocytosis (manual) Slight Microcytosis (manual) Slight Macrocytosis (manual) Slight Spherocytes Slight Target Cells Slight Tear Drop Cells Slight Ovalocytes Slight Schistocytes Puncture Site pCO2 (35-45) mm/Hg pO2 (80-100) mm/Hg HCO3 (21-28) mmol/L ABG pH (7.35-7.45) ABG Total CO2 (22-28) mmol/L ABG O2 Saturation (95-98) % ABG Base Excess (-2.0-3.0) mmol/L ABG Hemoglobin (11.7-17.4) g/dL ABG Carboxyhemoglobin (0.5-1.5) % POC ABG HHb (Measured) (0.0-5.0) % ABG Methemoglobin (0.0-3.0) % Guy Test A-a O2 Difference mm/Hg Respiratory Index Hgb O2 Saturation (95.0-98.0) % Vent Mode Mechanical Rate FiO2 % Tidal Volume PEEP Sodium 145 (132-148) mmol/L Potassium 4.2 (3.6-5.2) mmol/L Chloride 110 H (98-107) mmol/L Carbon Dioxide 22 (22-30) mmol/L Anion Gap 17 (10-20) BUN 57 H (7-17) mg/dL Creatinine 1.7 H (0.7-1.2) mg/dL Est GFR ( Amer) 35 Est GFR (Non-Af Amer) 29 POC Glucose (mg/dL) 299 H (65-110) mg/dL Random Glucose 346 H (65-105) mg/dL Calcium 7.7 L (8.6-10.4) mg/dl Phosphorus 4.4 (2.5-4.5) mg/dL Magnesium 1.9 (1.6-2.3) mg/dL Total Bilirubin 0.8 (0.2-1.3) mg/dL AST 43 H D (14-36) U/L ALT 32 (9-52) U/L Alkaline Phosphatase 53 (38-126) U/L Total Protein 5.0 L (6.3-8.3) g/dL Albumin 2.6 L (3.5-5.0) g/dL Globulin 2.4 (2.2-3.9) gm/dL Albumin/Globulin Ratio 1.1 (1.0-2.1) Hep Bs Antigen (NEGATIVE) Hep Bs Antibody (NEGATIVE) Hep B Core IgM Ab (NEGATIVE) Hepatitis C Antibody (NEGATIVE) 09/24/17 09/24/17 09/24/17 Range/Units 06:48 06:01 05:27 WBC 14.7 H (4.8-10.8) K/uL RBC 3.08 L (3.80-5.20) Mil/uL Hgb 7.5 L (11.0-16.0) g/dL Hct 24.1 L (34.0-47.0) % MCV 78.2 L (81.0-99.0) fL MCH 24.5 L (27.0-31.0) pg MCHC 31.4 L (33.0-37.0) g/dL RDW 19.4 H (11.5-14.5) % Plt Count 183 (130-400) K/uL MPV 10.0 (7.2-11.7) fL Neut % (Auto) 91.7 H (50.0-75.0) % Lymph % (Auto) 4.0 L (20.0-40.0) % [place] % (Auto) 4.2 (0.0-10.0) % Eos % (Auto) 0.0 (0.0-4.0) % Baso % (Auto) 0.1 (0.0-2.0) % Neut # 13.5 H (1.8-7.0) K/uL Lymph # 0.6 L (1.0-4.3) K/uL [place] # 0.6 (0.0-0.8) K/uL Eos # 0.0 (0.0-0.7) K/uL Baso # 0.0 (0.0-0.2) K/uL Neutrophils % (Manual) 88 H (50-75) % Band Neutrophils % 6 H (0-2) % Lymphocytes % (Manual) 4 L (20-40) % Monocytes % (Manual) 2 (0-10) % Nucleated RBC % 5 H (0-0) % Platelet Estimate Normal (NORMAL) Large Platelets Present Polychromasia Slight Hypochromasia (manual) Slight Poikilocytosis (manual Slight Anisocytosis (manual) Moderate Microcytosis (manual) Slight Macrocytosis (manual) Slight Spherocytes Slight Target Cells Slight Tear Drop Cells Ovalocytes Slight Schistocytes Slight Puncture Site Rr pCO2 27 L (35-45) mm/Hg pO2 136 H (80-100) mm/Hg HCO3 21.8 (21-28) mmol/L ABG pH 7.46 H (7.35-7.45) ABG Total CO2 20.0 L (22-28) mmol/L ABG O2 Saturation 98.3 H (95-98) % ABG Base Excess -4.0 L (-2.0-3.0) mmol/L ABG Hemoglobin 7.6 L (11.7-17.4) g/dL ABG Carboxyhemoglobin 1.1 (0.5-1.5) % POC ABG HHb (Measured) 1.7 (0.0-5.0) % ABG Methemoglobin 0.7 (0.0-3.0) % Guy Test Pos A-a O2 Difference 115.0 mm/Hg Respiratory Index 0.8 Hgb O2 Saturation 96.5 (95.0-98.0) % Vent Mode Prvc Mechanical Rate 14 FiO2 40.0 % Tidal Volume 400 PEEP 5 Sodium (132-148) mmol/L Potassium (3.6-5.2) mmol/L Chloride (98-107) mmol/L Carbon Dioxide (22-30) mmol/L Anion Gap (10-20) BUN (7-17) mg/dL Creatinine (0.7-1.2) mg/dL Est GFR ( Amer) Est GFR (Non-Af Amer) POC Glucose (mg/dL) 308 H (65-110) mg/dL Random Glucose (65-105) mg/dL Calcium (8.6-10.4) mg/dl Phosphorus (2.5-4.5) mg/dL Magnesium (1.6-2.3) mg/dL Total Bilirubin (0.2-1.3) mg/dL AST (14-36) U/L ALT (9-52) U/L Alkaline Phosphatase (38-126) U/L Total Protein (6.3-8.3) g/dL Albumin (3.5-5.0) g/dL Globulin (2.2-3.9) gm/dL Albumin/Globulin Ratio (1.0-2.1) Hep Bs Antigen (NEGATIVE) Hep Bs Antibody (NEGATIVE) Hep B Core IgM Ab (NEGATIVE) Hepatitis C Antibody (NEGATIVE) 09/24/17 09/23/17 09/23/17 Range/Units 00:42 17:32 17:22 WBC (4.8-10.8) K/uL RBC (3.80-5.20) Mil/uL Hgb (11.0-16.0) g/dL Hct (34.0-47.0) % MCV (81.0-99.0) fL MCH (27.0-31.0) pg MCHC (33.0-37.0) g/dL RDW (11.5-14.5) % Plt Count (130-400) K/uL MPV (7.2-11.7) fL Neut % (Auto) (50.0-75.0) % Lymph % (Auto) (20.0-40.0) % [place] % (Auto) (0.0-10.0) % Eos % (Auto) (0.0-4.0) % Baso % (Auto) (0.0-2.0) % Neut # (1.8-7.0) K/uL Lymph # (1.0-4.3) K/uL [place] # (0.0-0.8) K/uL Eos # (0.0-0.7) K/uL Baso # (0.0-0.2) K/uL Neutrophils % (Manual) (50-75) % Band Neutrophils % (0-2) % Lymphocytes % (Manual) (20-40) % Monocytes % (Manual) (0-10) % Nucleated RBC % (0-0) % Platelet Estimate (NORMAL) Large Platelets Polychromasia Hypochromasia (manual) Poikilocytosis (manual Anisocytosis (manual) Microcytosis (manual) Macrocytosis (manual) Spherocytes Target Cells Tear Drop Cells Ovalocytes Schistocytes Puncture Site pCO2 (35-45) mm/Hg pO2 (80-100) mm/Hg HCO3 (21-28) mmol/L ABG pH (7.35-7.45) ABG Total CO2 (22-28) mmol/L ABG O2 Saturation (95-98) % ABG Base Excess (-2.0-3.0) mmol/L ABG Hemoglobin (11.7-17.4) g/dL ABG Carboxyhemoglobin (0.5-1.5) % POC ABG HHb (Measured) (0.0-5.0) % ABG Methemoglobin (0.0-3.0) % Guy Test A-a O2 Difference mm/Hg Respiratory Index Hgb O2 Saturation (95.0-98.0) % Vent Mode Mechanical Rate FiO2 % Tidal Volume PEEP Sodium (132-148) mmol/L Potassium (3.6-5.2) mmol/L Chloride (98-107) mmol/L Carbon Dioxide (22-30) mmol/L Anion Gap (10-20) BUN (7-17) mg/dL Creatinine (0.7-1.2) mg/dL Est GFR ( Amer) Est GFR (Non-Af Amer) POC Glucose (mg/dL) 355 H 233 H (65-110) mg/dL Random Glucose (65-105) mg/dL Calcium (8.6-10.4) mg/dl Phosphorus (2.5-4.5) mg/dL Magnesium (1.6-2.3) mg/dL Total Bilirubin (0.2-1.3) mg/dL AST (14-36) U/L ALT (9-52) U/L Alkaline Phosphatase (38-126) U/L Total Protein (6.3-8.3) g/dL Albumin (3.5-5.0) g/dL Globulin (2.2-3.9) gm/dL Albumin/Globulin Ratio (1.0-2.1) Hep Bs Antigen (NEGATIVE) Hep Bs Antibody Positive (NEGATIVE) Hep B Core IgM Ab (NEGATIVE) Hepatitis C Antibody (NEGATIVE) 09/23/17 Range/Units 17:22 WBC (4.8-10.8) K/uL RBC (3.80-5.20) Mil/uL Hgb (11.0-16.0) g/dL Hct (34.0-47.0) % MCV (81.0-99.0) fL MCH (27.0-31.0) pg MCHC (33.0-37.0) g/dL RDW (11.5-14.5) % Plt Count (130-400) K/uL MPV (7.2-11.7) fL Neut % (Auto) (50.0-75.0) % Lymph % (Auto) (20.0-40.0) % [place] % (Auto) (0.0-10.0) % Eos % (Auto) (0.0-4.0) % Baso % (Auto) (0.0-2.0) % Neut # (1.8-7.0) K/uL Lymph # (1.0-4.3) K/uL [place] # (0.0-0.8) K/uL Eos # (0.0-0.7) K/uL Baso # (0.0-0.2) K/uL Neutrophils % (Manual) (50-75) % Band Neutrophils % (0-2) % Lymphocytes % (Manual) (20-40) % Monocytes % (Manual) (0-10) % Nucleated RBC % (0-0) % Platelet Estimate (NORMAL) Large Platelets Polychromasia Hypochromasia (manual) Poikilocytosis (manual Anisocytosis (manual) Microcytosis (manual) Macrocytosis (manual) Spherocytes Target Cells Tear Drop Cells Ovalocytes Schistocytes Puncture Site pCO2 (35-45) mm/Hg pO2 (80-100) mm/Hg HCO3 (21-28) mmol/L ABG pH (7.35-7.45) ABG Total CO2 (22-28) mmol/L ABG O2 Saturation (95-98) % ABG Base Excess (-2.0-3.0) mmol/L ABG Hemoglobin (11.7-17.4) g/dL ABG Carboxyhemoglobin (0.5-1.5) % POC ABG HHb (Measured) (0.0-5.0) % ABG Methemoglobin (0.0-3.0) % Guy Test A-a O2 Difference mm/Hg Respiratory Index Hgb O2 Saturation (95.0-98.0) % Vent Mode Mechanical Rate FiO2 % Tidal Volume PEEP Sodium (132-148) mmol/L Potassium (3.6-5.2) mmol/L Chloride (98-107) mmol/L Carbon Dioxide (22-30) mmol/L Anion Gap (10-20) BUN (7-17) mg/dL Creatinine (0.7-1.2) mg/dL Est GFR ( Amer) Est GFR (Non-Af Amer) POC Glucose (mg/dL) (65-110) mg/dL Random Glucose (65-105) mg/dL Calcium (8.6-10.4) mg/dl Phosphorus (2.5-4.5) mg/dL Magnesium (1.6-2.3) mg/dL Total Bilirubin (0.2-1.3) mg/dL AST (14-36) U/L ALT (9-52) U/L Alkaline Phosphatase (38-126) U/L Total Protein (6.3-8.3) g/dL Albumin (3.5-5.0) g/dL Globulin (2.2-3.9) gm/dL Albumin/Globulin Ratio (1.0-2.1) Hep Bs Antigen Negative (NEGATIVE) Hep Bs Antibody (NEGATIVE) Hep B Core IgM Ab Negative (NEGATIVE) Hepatitis C Antibody Negative (NEGATIVE) Laboratory Results - last 24 hr 09/23/17 09/23/17 09/23/17 17:22 17:22 17:32 WBC RBC Hgb Hct MCV MCH MCHC RDW Plt Count MPV Neut % (Auto) Lymph % (Auto) [place] % (Auto) Eos % (Auto) Baso % (Auto) Neut # Lymph # [place] # Eos # Baso # Neutrophils % (Manual) Band Neutrophils % Lymphocytes % (Manual) Monocytes % (Manual) Nucleated RBC % Platelet Estimate Large Platelets Polychromasia Hypochromasia (manual) Poikilocytosis (manual Anisocytosis (manual) Microcytosis (manual) Macrocytosis (manual) Spherocytes Target Cells Tear Drop Cells Ovalocytes Schistocytes Puncture Site pCO2 pO2 HCO3 ABG pH ABG Total CO2 ABG O2 Saturation ABG Base Excess ABG Hemoglobin ABG Carboxyhemoglobin POC ABG HHb (Measured) ABG Methemoglobin Guy Test A-a O2 Difference Respiratory Index Hgb O2 Saturation Vent Mode Mechanical Rate FiO2 Tidal Volume PEEP Sodium Potassium Chloride Carbon Dioxide Anion Gap BUN Creatinine Est GFR ( Amer) Est GFR (Non-Af Amer) POC Glucose (mg/dL) 233 H Random Glucose Calcium Phosphorus Magnesium Total Bilirubin AST ALT Alkaline Phosphatase Total Protein Albumin Globulin Albumin/Globulin Ratio Hep Bs Antigen Negative Hep Bs Antibody Positive Hep B Core IgM Ab Negative Hepatitis C Antibody Negative 09/24/17 09/24/17 09/24/17 00:42 05:27 06:01 WBC RBC Hgb Hct MCV MCH MCHC RDW Plt Count MPV Neut % (Auto) Lymph % (Auto) [place] % (Auto) Eos % (Auto) Baso % (Auto) Neut # Lymph # [place] # Eos # Baso # Neutrophils % (Manual) Band Neutrophils % Lymphocytes % (Manual) Monocytes % (Manual) Nucleated RBC % Platelet Estimate Large Platelets Polychromasia Hypochromasia (manual) Poikilocytosis (manual Anisocytosis (manual) Microcytosis (manual) Macrocytosis (manual) Spherocytes Target Cells Tear Drop Cells Ovalocytes Schistocytes Puncture Site Rr pCO2 27 L pO2 136 H HCO3 21.8 ABG pH 7.46 H ABG Total CO2 20.0 L ABG O2 Saturation 98.3 H ABG Base Excess -4.0 L ABG Hemoglobin 7.6 L ABG Carboxyhemoglobin 1.1 POC ABG HHb (Measured) 1.7 ABG Methemoglobin 0.7 Guy Test Pos A-a O2 Difference 115.0 Respiratory Index 0.8 Hgb O2 Saturation 96.5 Vent Mode Prvc Mechanical Rate 14 FiO2 40.0 Tidal Volume 400 PEEP 5 Sodium Potassium Chloride Carbon Dioxide Anion Gap BUN Creatinine Est GFR ( Amer) Est GFR (Non-Af Amer) POC Glucose (mg/dL) 355 H 308 H Random Glucose Calcium Phosphorus Magnesium Total Bilirubin AST ALT Alkaline Phosphatase Total Protein Albumin Globulin Albumin/Globulin Ratio Hep Bs Antigen Hep Bs Antibody Hep B Core IgM Ab Hepatitis C Antibody 09/24/17 09/24/17 09/24/17 06:48 06:48 11:34 WBC 14.7 H 18.4 H RBC 3.08 L 3.19 L Hgb 7.5 L 7.7 L Hct 24.1 L 24.9 L MCV 78.2 L 78.0 L MCH 24.5 L 24.1 L MCHC 31.4 L 30.9 L RDW 19.4 H 19.8 H Plt Count 183 201 MPV 10.0 9.6 Neut % (Auto) 91.7 H 91.4 H Lymph % (Auto) 4.0 L 3.5 L [place] % (Auto) 4.2 5.0 Eos % (Auto) 0.0 0.0 Baso % (Auto) 0.1 0.1 Neut # 13.5 H 16.8 H Lymph # 0.6 L 0.6 L [place] # 0.6 0.9 H Eos # 0.0 0.0 Baso # 0.0 0.0 Neutrophils % (Manual) 88 H 85 H Band Neutrophils % 6 H 4 H Lymphocytes % (Manual) 4 L 8 L Monocytes % (Manual) 2 3 Nucleated RBC % 5 H 3 H Platelet Estimate Normal Normal Large Platelets Present Polychromasia Slight Slight Hypochromasia (manual) Slight Slight Poikilocytosis (manual Slight Slight Anisocytosis (manual) Moderate Slight Microcytosis (manual) Slight Slight Macrocytosis (manual) Slight Slight Spherocytes Slight Slight Target Cells Slight Slight Tear Drop Cells Slight Ovalocytes Slight Slight Schistocytes Slight Puncture Site pCO2 pO2 HCO3 ABG pH ABG Total CO2 ABG O2 Saturation ABG Base Excess ABG Hemoglobin ABG Carboxyhemoglobin POC ABG HHb (Measured) ABG Methemoglobin Guy Test A-a O2 Difference Respiratory Index Hgb O2 Saturation Vent Mode Mechanical Rate FiO2 Tidal Volume PEEP Sodium 145 Potassium 4.2 Chloride 110 H Carbon Dioxide 22 Anion Gap 17 BUN 57 H Creatinine 1.7 H Est GFR ( Amer) 35 Est GFR (Non-Af Amer) 29 POC Glucose (mg/dL) Random Glucose 346 H Calcium 7.7 L Phosphorus 4.4 Magnesium 1.9 Total Bilirubin 0.8 AST 43 H D ALT 32 Alkaline Phosphatase 53 Total Protein 5.0 L Albumin 2.6 L Globulin 2.4 Albumin/Globulin Ratio 1.1 Hep Bs Antigen Hep Bs Antibody Hep B Core IgM Ab Hepatitis C Antibody 09/24/17 11:48 WBC RBC Hgb Hct MCV MCH MCHC RDW Plt Count MPV Neut % (Auto) Lymph % (Auto) [place] % (Auto) Eos % (Auto) Baso % (Auto) Neut # Lymph # [place] # Eos # Baso # Neutrophils % (Manual) Band Neutrophils % Lymphocytes % (Manual) Monocytes % (Manual) Nucleated RBC % Platelet Estimate Large Platelets Polychromasia Hypochromasia (manual) Poikilocytosis (manual Anisocytosis (manual) Microcytosis (manual) Macrocytosis (manual) Spherocytes Target Cells Tear Drop Cells Ovalocytes Schistocytes Puncture Site pCO2 pO2 HCO3 ABG pH ABG Total CO2 ABG O2 Saturation ABG Base Excess ABG Hemoglobin ABG Carboxyhemoglobin POC ABG HHb (Measured) ABG Methemoglobin Guy Test A-a O2 Difference Respiratory Index Hgb O2 Saturation Vent Mode Mechanical Rate FiO2 Tidal Volume PEEP Sodium Potassium Chloride Carbon Dioxide Anion Gap BUN Creatinine Est GFR ( Amer) Est GFR (Non-Af Amer) POC Glucose (mg/dL) 299 H Random Glucose Calcium Phosphorus Magnesium Total Bilirubin AST ALT Alkaline Phosphatase Total Protein Albumin Globulin Albumin/Globulin Ratio Hep Bs Antigen Hep Bs Antibody Hep B Core IgM Ab Hepatitis C Antibody EKG/Cardiology Studies: Cardiology / EKG Studies 09/23/17 22:27 EKG [ELECTROCARDIOGRAM] Stat Comment: Mode Of Transportation: PORTABLE Reason For Exam: ARRYTHMIA Critical Care Progress Note - Nutrition Nutrition: Nutrition Category Date Time Status NPO Diet [DIET] Diets 09/20/17 Dinner Active Assessment/Plan - Assessment and Plan (Free Text) Plan: Patient in ICU for respiratory failure: -Hypoxic respiratory failure: CPAP trials daily, overnight patient received NS bolus, today's CXR reveals congestion -ANEMIA: hb/hct decreased, with decrease in platelets, repeat stable, suspect dilution s/p fluid bolus, no active bleeding -CKD: chronic pending HD today -previous intubation revealed significant edema, continue solumedrol -NSTEMI: patient at risk of valvular regurgitation, continue asa, av kaylene blcocker (coardizem) + statin, not acei 2nd renal failure -continue dvt/pud ppx -Patient's CXR today reveals more congestion, will allow HD today and then CPAP and obtain weaning trials. cc time 35 minutes - Date & Time Date: 09/24/17 Time: 15:08
--- NOTE | 2017-09-24 09:15 | CP.PCM.PN ---
Subjective - Date & Time of Evaluation Date of Evaluation: 09/24/17 Time of Evaluation: 09:00 - Subjective Subjective: on vent tolerated HD yesterday 700 cc of urine cxray still with congestion diuretics stopped, unclear why unable to obtain ROS due to clinical condition family at bedside Objective - Vital Signs/Intake and Output Vital Signs (last 24 hours): Temp Pulse Resp BP Pulse Ox 98.8 F 93 H 21 133/45 L 100 09/24/17 08:00 09/24/17 08:00 09/24/17 08:00 09/24/17 07:47 09/24/17 08:00 Intake and Output: 09/24/17 09/24/17 06:59 18:59 Intake Total 649.4 60 Output Total 375 30 Balance 274.4 30 - Medications Medications: Current Medications Acetylcysteine (Acetylcysteine 20%) 6 ml PO Q12 [facility] Stop: 09/24/17 22:01 Last Admin: 09/23/17 21:17 Dose: 6 ml Albuterol/Ipratropium (Duoneb 3 Mg/0.5 Mg (3 Ml) Ud) 3 ml INH RQ4 [facility] Last Admin: 09/24/17 07:55 Dose: 3 ml Aspirin (Aspirin Chewable) 81 mg PO DAILY [facility] Last Admin: 09/23/17 09:18 Dose: 81 mg Dextrose (Dextrose 50% Inj) 0 ml IV STAT PRN; Protocol PRN Reason: Hypoglycemia Protocol Dextrose (Glutose 15) 0 gm PO ONCE PRN; Protocol PRN Reason: Hypoglycemia Protocol Epoetin Sarath (Procrit) 10,000 unit SC TTS [facility] Last Admin: 09/22/17 10:18 Dose: 10,000 unit Furosemide (Lasix) 40 mg IVP BID [facility] Glucagon (Glucagen Diagnostic Kit) 0 mg IM STAT PRN; Protocol PRN Reason: Hypoglycemia Protocol Heparin Sodium (Porcine) (Heparin) 5,000 units SC Q8 [facility] Last Admin: 09/24/17 05:57 Dose: 5,000 units Dextrose (Dextrose 5% In Water 1000 Ml) 1,000 mls @ 0 mls/hr IV .Q0M PRN; Protocol; Per Protocol PRN Reason: Hypoglycemia Protocol Insulin Aspart (Novolog) 0 unit SC Q6 [facility] PRN Reason: Protocol Last Admin: 09/24/17 06:11 Dose: 4 unit Methylprednisolone (Solu-Medrol) 40 mg IVP Q8 [facility] Stop: 09/24/17 22:01 Last Admin: 09/24/17 05:57 Dose: 40 mg Ondansetron HCl (Zofran Inj) 4 mg IVP Q6 PRN PRN Reason: Nausea/Vomiting Last Admin: 09/13/17 11:01 Dose: 4 mg Pantoprazole Sodium (Protonix Inj) 40 mg IVP DAILY [facility] Last Admin: 09/23/17 09:18 Dose: 40 mg Rosuvastatin Calcium (Crestor) 2.5 mg PO HS [facility] Last Admin: 09/23/17 21:17 Dose: 2.5 mg - Labs Labs: 09/24/17 06:48 09/24/17 06:48 PT 10.3 SECONDS (9.7-12.2) 09/10/17 13:52 INR 0.9 09/10/17 13:52 APTT 34 SECONDS (21-34) 09/10/17 13:52 - Constitutional Appears: Confused, Chronically Ill - Head Exam Head Exam: ATRAUMATIC Additional comments: endotracheal intubation - ENT Exam ENT Exam: Mucous Membranes Dry - Respiratory Exam Respiratory Exam: Decreased Breath Sounds. absent: Accessory Muscle Use - Cardiovascular Exam Cardiovascular Exam: Tachycardia. absent: Rubs - Extremities Exam Extremities Exam: Pedal Edema - Neurological Exam Neurological Exam: absent: Alert, Awake Assessment and Plan - Assessment and Plan (Free Text) Assessment: vent dependent acute PA, 3 v CAD on cath xray with chf fair u/o repeat HD for fluid removal today continue diuretics if possible assess for further HD requirements
--- NOTE | 2017-09-24 10:20 | CP.PCM.PN ---
Subjective - Date & Time of Evaluation Date of Evaluation: 09/24/17 Time of Evaluation: 10:20 - Subjective Subjective: Medical Attending note patient seen, examined. intubated. Unable to review ROS given clinical condition. patient awaiting transfer to [facility] [place] for CABG. Patient to have dialysis today. Objective - Vital Signs/Intake and Output Vital Signs (last 24 hours): Temp Pulse Resp BP Pulse Ox 98.8 F 93 H 21 133/45 L 100 09/24/17 08:00 09/24/17 08:00 09/24/17 08:00 09/24/17 07:47 09/24/17 08:00 Intake and Output: 09/24/17 09/24/17 06:59 18:59 Intake Total 649.4 60 Output Total 375 30 Balance 274.4 30 - Medications Medications: Current Medications Acetylcysteine (Acetylcysteine 20%) 6 ml PO Q12 [facility] Stop: 09/24/17 22:01 Last Admin: 09/23/17 21:17 Dose: 6 ml Albuterol/Ipratropium (Duoneb 3 Mg/0.5 Mg (3 Ml) Ud) 3 ml INH RQ4 [facility] Last Admin: 09/24/17 07:55 Dose: 3 ml Aspirin (Aspirin Chewable) 81 mg PO DAILY [facility] Last Admin: 09/24/17 10:13 Dose: 81 mg Dextrose (Dextrose 50% Inj) 0 ml IV STAT PRN; Protocol PRN Reason: Hypoglycemia Protocol Dextrose (Glutose 15) 0 gm PO ONCE PRN; Protocol PRN Reason: Hypoglycemia Protocol Epoetin Sarath (Procrit) 10,000 unit SC TTS [facility] Last Admin: 09/22/17 10:18 Dose: 10,000 unit Furosemide (Lasix) 40 mg IVP BID [facility] Glucagon (Glucagen Diagnostic Kit) 0 mg IM STAT PRN; Protocol PRN Reason: Hypoglycemia Protocol Heparin Sodium (Porcine) (Heparin) 5,000 units SC Q8 [facility] Last Admin: 09/24/17 05:57 Dose: 5,000 units Dextrose (Dextrose 5% In Water 1000 Ml) 1,000 mls @ 0 mls/hr IV .Q0M PRN; Protocol; Per Protocol PRN Reason: Hypoglycemia Protocol Insulin Aspart (Novolog) 0 unit SC Q6 [facility] PRN Reason: Protocol Last Admin: 09/24/17 06:11 Dose: 4 unit Methylprednisolone (Solu-Medrol) 40 mg IVP Q8 [facility] Stop: 09/24/17 22:01 Last Admin: 09/24/17 05:57 Dose: 40 mg Ondansetron HCl (Zofran Inj) 4 mg IVP Q6 PRN PRN Reason: Nausea/Vomiting Last Admin: 09/13/17 11:01 Dose: 4 mg Pantoprazole Sodium (Protonix Inj) 40 mg IVP DAILY [facility] Last Admin: 09/24/17 10:13 Dose: 40 mg Rosuvastatin Calcium (Crestor) 2.5 mg PO HS [facility] Last Admin: 09/23/17 21:17 Dose: 2.5 mg - Labs Labs: 09/24/17 06:48 09/24/17 06:48 PT 10.3 SECONDS (9.7-12.2) 09/10/17 13:52 INR 0.9 09/10/17 13:52 APTT 34 SECONDS (21-34) 09/10/17 13:52 - Constitutional Appears: Confused, Chronically Ill - Head Exam Head Exam: NORMAL INSPECTION Additional comments: intubated - Eye Exam Eye Exam: EOMI - Respiratory Exam Respiratory Exam: Decreased Breath Sounds - Cardiovascular Exam Cardiovascular Exam: Tachycardia, +S1, +S2 - GI/Abdominal Exam GI & Abdominal Exam: Soft, Normal Bowel Sounds. 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 whelan) on board-->help appreciated s/p 09/[address] Whelan 09/23, plan for CABG evaluation with Dr. Mendoza, cardiothoracic surgery for possible transfer to [facility] [place] Discussed with shawn Tucker 09/23 who she and rest of family are of severity of patient's heart disease in light of co-morbidities Per Cardiac cath note: proximal LAD, proximal circumflex artery, and proximal first obtuse marginal branch with significant severely depressed ejection fractio: 35% severe anteroapical and inferoapical hypokinese Moderate aortic insuffiency. Per cardiology, patient is high risk surgical candidate and decision of surgery will left to cardiothoracic surgeon. pending transfer to [facility] [place] [place] for CABG evaluation when bed is available on aspirin, cardizem, statin, off michela/arb given renal insuffiency Status: Acute (2) Systolic heart failure secondary to coronary artery disease Assessment & Plan: Discussed with Dr. Whelan 09/23, plan for CABG evaluation with Dr. Mendoza, cardiothoracic surgery for possible transfer to [facility] [place] Discussed with shawn Tucker 09/23 who she and rest of family are of severity of patient's heart disease in light of co-morbidities Per Cardiac cath note: proximal LAD, proximal circumflex artery, and proximal first obtuse marginal branch with significant severely depressed ejection fractio: 35% severe anteroapical and inferoapical hypokinese Moderate aortic insuffiency. Per cardiology, patient is high risk surgical candidate and decision of surgery will left to cardiothoracic surgeon. pending transfer to [facility] [place] for CABG evaluation when bed is available 09/24 On aspirin, cardizem, statin, off michela/arb given acute renal insufficiency Started dialysis on 09/23/17 Status: Acute (3) Acute renal failure Assessment & Plan: Neprhology (Dr. Chowdhury) on board-->help appreciated patient started on HD 09/23 for first session, completed second session 09/24 procrit on board Status: Acute (4) Non-STEMI (non-ST elevated myocardial infarction) Assessment & Plan: on aspirin, cardizem statin (lipitor not available on formulary but preferred in CKD per Uptodate), off michela/arb given Acute renal insuffiency Status: Acute (5) Diabetes Assessment & Plan: a1c: 7.8 off PO medications on admission given acute renal insufficiency Hypoglycemic protocol Novolog Q6H sliding scale on tube feeding (glucerna) since 09/21 off long acting insulin Status: Chronic (6) Hypertension Assessment & Plan: On cardizem off michela/arb given renal insufficiency started dialysis on 09/23 Status: Chronic (7) Anemia Assessment & Plan: procrit on board Status: Chronic (8) Polypharmacy Assessment & Plan: On admission: patient had take her anti-hypertensives which is contributing factor to her hypotension on admission Status: Inactive (9) Pneumonia Assessment & Plan: ID on case On IV Cefazolin until 09/22/17 Afebrile since 09/22/17 Note completing Solumedrol for largyenal edema noted on reintubated 09/24 Status: Suspected (10) Laryngeal edema Assessment & Plan: completed solumedrol treatment; white count as a result 09/24 Status: Resolved (11) Prophylactic measure Assessment & Plan: Protonix 40mg IV q daily Heparin 5000 units [id number] Palliative care on board HD since 09/23/17 Patient is intubated and sedation-->management per ICU prevalon boots HD catheter Full code Status: Acute - Assessment and Plan (Free Text) Assessment: Pending transfer to [facility] for CABG evaluation when bed is available.
[2017-09-24] MEDS: Acetylcysteine 20% Inhal Soln (4ml) PO SCH ×2 (10:38→22:02)
--- NOTE | 2017-09-24 10:49 | CP.PCM.PN ---
Subjective - Date & Time of Evaluation Date of Evaluation: 09/24/17 Time of Evaluation: 08:00 - Subjective Subjective: patient seen and examined Status post cardiac cath with triple-vessel disease Remains intubated on ventilatory support Planning to transfer [facility] FOR POSSIBLE CABG Objective - Vital Signs/Intake and Output Vital Signs (last 24 hours): Temp Pulse Resp BP Pulse Ox 98.8 F 93 H 21 133/45 L 100 09/24/17 08:00 09/24/17 08:00 09/24/17 08:00 09/24/17 07:47 09/24/17 08:00 Intake and Output: 09/24/17 09/24/17 06:59 18:59 Intake Total 649.4 60 Output Total 375 30 Balance 274.4 30 - Medications Medications: Current Medications Acetylcysteine (Acetylcysteine 20%) 6 ml PO Q12 [facility] Stop: 09/24/17 22:01 Last Admin: 09/24/17 10:38 Dose: 6 ml Albuterol/Ipratropium (Duoneb 3 Mg/0.5 Mg (3 Ml) Ud) 3 ml INH RQ4 [facility] Last Admin: 09/24/17 07:55 Dose: 3 ml Aspirin (Aspirin Chewable) 81 mg PO DAILY [facility] Last Admin: 09/24/17 10:13 Dose: 81 mg Dextrose (Dextrose 50% Inj) 0 ml IV STAT PRN; Protocol PRN Reason: Hypoglycemia Protocol Dextrose (Glutose 15) 0 gm PO ONCE PRN; Protocol PRN Reason: Hypoglycemia Protocol Epoetin Sarath (Procrit) 10,000 unit SC TTS [facility] Last Admin: 09/22/17 10:18 Dose: 10,000 unit Furosemide (Lasix) 40 mg IVP BID [facility] Glucagon (Glucagen Diagnostic Kit) 0 mg IM STAT PRN; Protocol PRN Reason: Hypoglycemia Protocol Heparin Sodium (Porcine) (Heparin) 5,000 units SC Q8 [facility] Last Admin: 09/24/17 05:57 Dose: 5,000 units Dextrose (Dextrose 5% In Water 1000 Ml) 1,000 mls @ 0 mls/hr IV .Q0M PRN; Protocol; Per Protocol PRN Reason: Hypoglycemia Protocol Insulin Aspart (Novolog) 0 unit SC Q6 [facility] PRN Reason: Protocol Last Admin: 09/24/17 06:11 Dose: 4 unit Methylprednisolone (Solu-Medrol) 40 mg IVP Q8 [facility] Stop: 09/24/17 22:01 Last Admin: 09/24/17 05:57 Dose: 40 mg Ondansetron HCl (Zofran Inj) 4 mg IVP Q6 PRN PRN Reason: Nausea/Vomiting Last Admin: 09/13/17 11:01 Dose: 4 mg Pantoprazole Sodium (Protonix Inj) 40 mg IVP DAILY [facility] Last Admin: 09/24/17 10:13 Dose: 40 mg Rosuvastatin Calcium (Crestor) 2.5 mg PO HS [facility] Last Admin: 09/23/17 21:17 Dose: 2.5 mg - Labs Labs: 09/24/17 06:48 09/24/17 06:48 PT 10.3 SECONDS (9.7-12.2) 09/10/17 13:52 INR 0.9 09/10/17 13:52 APTT 34 SECONDS (21-34) 09/10/17 13:52 Assessment and Plan (1) Hypercapnic respiratory failure Status: Acute (2) CKD (chronic kidney disease) stage 4, GFR 15-29 ml/min Status: Acute
[2017-09-24 10:52] LABS: NEUTROPHIL 88 % (50-75); NUCLEATED RED BLOOD CELL 5 % (0-0); TOTAL CELLS COUNTED 100
[2017-09-24 10:54] LABS: SPHEROCYTES SLIGHT
[2017-09-24 10:55] LABS: LARGE PLATELETS PRESENT
--- NOTE | 2017-09-24 11:00 | RAD ---
HISTORY: intubation COMPARISON: Comparison is made to 09/23/2017 FINDINGS: LUNGS: Interval improvement in the lungs since the previous study. No focal infiltrate or consolidation seen. The ET tube is seen at appropriate position PLEURA: No significant pleural effusion identified, no pneumothorax apparent. CARDIOVASCULAR: The cardiac silhouette is upper normal limit in size in this portable study. OSSEOUS STRUCTURES: No significant abnormalities. VISUALIZED UPPER ABDOMEN: A tube seen extending to the stomach OTHER FINDINGS: None. IMPRESSION: Interval improvement in the lungs since the previous study. Appropriate position of the ETT.
[2017-09-24] MEDS ORDERED: Dexmedetomidine Hydrochloride 400 MCG in Sodium Chloride 0.9% 96 ML IV PRN (11:37)
[2017-09-24 11:43] LABS: BASO % 0.1 % (0.0-2.0); HEMATOCRIT 24.9 % (34.0-47.0); LYMPH # 0.6 K/uL (1.0-4.3); LYMPH % 3.5 % (20.0-40.0); MEAN CORPUSCULAR HEMOGLOBIN 24.1 pg (27.0-31.0); MEAN CORPUSCULAR HGB CONC 30.9 g/dL (33.0-37.0); MEAN PLATELET VOLUME 9.6 fL (7.2-11.7); MONO # 0.9 K/uL (0.0-0.8); NRBC % 3.3 % (0.0-2.0); PLATELET COUNT 201 K/uL (130-400); RED CELL DISTRIBUTION WIDTH 19.8 % (11.5-14.5); WHITE BLOOD COUNT 18.4 K/uL (4.8-10.8)
[2017-09-24 13:20] LABS: NEUTROPHIL 85 % (50-75); NUCLEATED RED BLOOD CELL 3 % (0-0); TOTAL CELLS COUNTED 100
[2017-09-24 13:22] LABS: SPHEROCYTES SLIGHT
[2017-09-24] MEDS: EPOETIN ALFA 10,000 UNIT/ML ML SC SCH (14:13)
[2017-09-24] MEDS ORDERED: Acetaminophen 160 mg/5 ml UD PO PRN (15:23)
[2017-09-24 16:21] VITALS: O2SAT 100
--- NOTE | 2017-09-24 21:46 | PN ---
DATE: SUBJECTIVE: The patient is currently on a ventilator, undergoing her second hemodialysis. No reported ventricular arrhythmia and no reported hypotension. PHYSICAL EXAMINATION: VITAL SIGNS: Blood pressure 126/73, heart rate 102, temperature 99.8. HEENT: Pale conjunctivae. CHEST: Bilateral rhonchi. HEART: S1 and S2 regular. EXTREMITIES: No groin hematoma. LABORATORY DATA: SMA-7: Sodium 145, potassium 4.2, chloride 110, CO2 of 22, glucose 346, BUN 57, creatinine 1.7. Hemoglobin and hematocrit 7.7 and 24.9, white count 18.4, platelet count 201,000. Today's chest x-ray report, interval improvement of the lung since previous study. ASSESSMENT: 1. Status post [id number] myocardial infarction. 2. Acute renal insufficiency. 3. Ischemic cardiomyopathy and moderate aortic insufficiency. 4. Anemia. RECOMMENDATIONS: Continue current aspirin 81 mg once a day, continue subcutaneous heparin 5000 units q. 8 hours, start Coreg 3.125 mg twice a day. I spoke to the family today for the transfer and I communicated to the cardiothoracic surgeon, who will receive the patient at [facility]. Orders were written yesterday after getting the family approval. Elvis Dunbar MD
[2017-09-24] MEDS: Rosuvastatin Calcium 2.5 mg Tab PO SCH (22:03)
[2017-09-24] MEDS ORDERED: Sodium Chloride 0.9% 1,000 ML IV ONE (23:56)
[2017-09-25] MEDS ORDERED: Sodium Chloride 0.9% 250 ML IV ONE (00:05)
[2017-09-25 01:04] VITALS: TEMP 98.1
[2017-09-25 02:34] VITALS: PULSE 73; RESP 15
[2017-09-25 02:39] VITALS: BP 90/50
--- NOTE | 2017-09-25 21:17 | CARD ---
APPROVED REPORT EXAM: Two-dimensional and M-mode echocardiogram with Doppler and color Doppler. Other Information Quality : GoodRhythm : INDICATION Dizziness and Vertigo Congestive Heart Failure Non STEMI 2D DIMENSIONS IVSd0.7 (0.7-1.1cm)LVDd4.4 (3.9-5.9cm) PWd0.8 (0.7-1.1cm)LVDs3.2 (2.5-4.0cm) FS (%) 27.8 %LVEF (%)54.2 (>50%) M-Mode DIMENSIONS Left Atrium (MM)3.61 (2.5-4.0cm)Aortic Root2.41 (2.2-3.7cm) Aortic Cusp Exc.1.59 (1.5-2.0cm) Aortic Valve AI P 1/2 [id number] Mitral Valve MV E [id number]/sE/A ratio0.0 TDI E/Lateral E'0.0E/Medial E'0.0 Tricuspid Valve TR Peak [id number]/sTR Peak [id number] <Conclusion> Left ventricle: thickness: normal; size: normal; Anteroseptal and apical hypokinesis; overall ejection fraction:35%: diastolic filling pressures: elevated Mitral valve: annulus: MAC: leaflets: mild calcific thickening: excursion: normal; no significant trans-mitral gradient: mild incompetence: left atrium: normal Aortic valve: leaflets:mild calcific thickening: excursion: normal;16mmHg peak trans-aortic gradient: mild incompetence: aortic root: normal Right sided Structures: Pulmonary valve: normal; no significant incompetence; Tricuspid valve: normal; mild incompetence: Intra-cardiac hemodynamics: pulmonary systolic pressures: 54 mmHgl; central venous pressures: normal No pericardial effusion
--- NOTE | 2017-09-26 19:14 | CARD ---
APPROVED REPORT EKG Measurement Heart [id number] <Conclusion> Sinus rhythm with 1st degree AV block Anteroseptal infarct, age undetermined T wave abnormality, consider inferolateral ischemia Abnormal ECG
--- NOTE | 2017-09-26 19:15 | CARD ---
APPROVED REPORT EKG Measurement Heart [id number] AR P57 [id number] <Conclusion> Sinus rhythm with 2nd degree AV block (Mobitz I) Anteroseptal infarct, age undetermined ST & T wave abnormality, consider lateral ischemia Abnormal ECG
--- NOTE | 2017-09-27 11:21 | PQF SEPSIS ---
This form is a permanent part of the medical record To BENNY ACOSTA, 81 year old female admitted for hypotension, responsive to fluids, BERYL and polypharmacy. Diagnosed with NSTEMI, CHF, acute respiratory Failure with hypercapnea, dehydration. Please clarify if Sepsis was ruled in or Ruled out. Thank you. Clarification of your documentation is requested to better reflect the severity of illness and intensity of treatment of your patient. Indicators present [X] Temp < 96.8 or > 100.4 Temp 100.7 [x] WBC count > 12,000/mm3 or <000/mm3 or 10% immature neutrophils [] Heart Rate > 90 [X] Respiratory Rate > 20 Acute Respiratory Failure with Hypercapnea [X] Fever or hypothermia [] Chills [] Positive blood cultures [X] Hypotension [] Metabolic acidosis (Elevated lactate level, anion gap or reduced blood pH) [] Acute confusion /Altered Mental Status [] Shock [] Other: [] Location in the medical record that reflects the above clinical findings: [X] 09/12 - Progress Note Dr. Flip Preciado ---Underlying Sepsis.... 09/10 - Consult Note Dr. Flip Preciado -----Sepsis Treatment Provided: [] PHYSICIAN'S RESPONSE Based on your medical judgment of the clinical indicators outlined above, are you treating this patient for a known or suspected: [] Sepsis / Septicemia Please specify organism if known [Pneumonia- Staph Aureus] [X] SIRS (Systemic Inflammatory Response Syndrome) during hospitalization, had low grade fever, elevated white count, sputum culture supporting Staph Aureus.. [] Severe Sepsis (Sepsis with Associated Organ Dysfunction) [] Fever of Unknown Origin [] Other, please indicate: [] [] If Unable to Determine, please check the box, sign and date. Present On Admission (POA) Indicator: [] Present at the time of admission [X] Not present at the time of admission; afebrile, no change in white count, not tachypneic, not hypoxic at time of admission [] Clinically Undetermined In responding to this query, please exercise your independent professional judgment. The fact that a question is asked does not imply that any particular answer is desired or expected. Thank you for your clarification on this documentation. If you have any questions please call:[ ] * Thank you, [ Paige Lind, [facility]] it solutions architect JUAN A
--- NOTE | 2017-09-29 16:05 | CP.PCM.DIS ---
Provider - Provider Date of Admission: 09/10/17 16:50 Attending physician: Kareem Wiggins MD Consults: Cardiology: Dr Whelan Nephrology: Dr Gan/Dr. Chowdhury'[facility] Infectious Disease: Dr. Smith Pulm: Dr Blair Palliative care Critical Care Heme-onc: Dr. Brown Lentz Time Spent in preparation of Discharge (in minutes): 31 Diagnosis - Discharge Diagnosis (1) Triple vessel disease of the heart Status: Acute Comment: S/p cardiac cath. Transferred to CABG for [facility] for eval (2) Systolic heart failure secondary to coronary artery disease Status: Acute Comment: S/p cardiac cath. Transferred to CABG for [facility] for eval (3) Acute renal failure Status: Acute Comment: see discharge summary for further details (4) Non-STEMI (non-ST elevated myocardial infarction) Status: Acute Comment: see discharge summary for further details (5) Diabetes Status: Chronic (6) Hypotension Status: Deleted Comment: see discharge summary for further details (7) Hypertension Status: Chronic (8) Anemia Status: Chronic (9) Elevated brain natriuretic peptide (BNP) level Status: Acute (10) Polypharmacy Status: Inactive (11) Pneumonia Status: Suspected (12) Vertigo Status: Acute (13) Prophylactic measure Status: Acute (14) Laryngeal edema Status: Resolved Comment: Observed when patient was reintubated, Completed Solumedrol. Hospital Course - Lab Results Lab Results: Micro Results 09/20/17 09:24 Urine,Catheterized Urine Culture - Final No Growth (<1,000 CFU/ML) 09/13/17 12:07 Trachasp Gram Stain - Final 09/13/17 12:07 Trachasp Sputum Culture - Final Staphylococcus Aureus 09/10/17 15:00 Blood Blood Culture - Final NO GROWTH AFTER 5 DAYS 09/10/17 15:00 Blood Gram Stain - Final TEST NOT PERFORMED 09/10/17 13:45 Blood Blood Culture - Final NO GROWTH AFTER 5 DAYS 09/10/17 13:45 Blood Gram Stain - Final TEST NOT PERFORMED 09/10/17 13:36 Urine Urine Culture - Final 10-50,000 CFU/ML. MULTIPLE SPECIES. PROBABLE CONTAMINATION. 09/10/17 19:49 Nose MRSA Culture (Admit) - Final MRSA NOT DETECTED Most Recent Lab Values WBC 18.4 K/uL (4.8-10.8) H 09/24/17 11:34 RBC 3.19 Mil/uL (3.80-5.20) L 09/24/17 11:34 Hgb 7.7 g/dL (11.0-16.0) L 09/24/17 11:34 Hct 24.9 % (34.0-47.0) L 09/24/17 11:34 MCV 78.0 fL (81.0-99.0) L 09/24/17 11:34 MCH 24.1 pg (27.0-31.0) L 09/24/17 11:34 MCHC 30.9 g/dL (33.0-37.0) L 09/24/17 11:34 RDW 19.8 % (11.5-14.5) H 09/24/17 11:34 Plt Count 201 K/uL (130-400) 09/24/17 11:34 MPV 9.6 fL (7.2-11.7) 09/24/17 11:34 Neut % (Auto) 91.4 % (50.0-75.0) H 09/24/17 11:34 Lymph % (Auto) 3.5 % (20.0-40.0) L 09/24/17 11:34 [place] % (Auto) 5.0 % (0.0-10.0) 09/24/17 11:34 Eos % (Auto) 0.0 % (0.0-4.0) 09/24/17 11:34 Baso % (Auto) 0.1 % (0.0-2.0) 09/24/17 11:34 Neut # 16.8 K/uL (1.8-7.0) H 09/24/17 11:34 Lymph # 0.6 K/uL (1.0-4.3) L 09/24/17 11:34 [place] # 0.9 K/uL (0.0-0.8) H 09/24/17 11:34 Eos # 0.0 K/uL (0.0-0.7) 09/24/17 11:34 Baso # 0.0 K/uL (0.0-0.2) 09/24/17 11:34 Neutrophils % (Manual) 85 % (50-75) H 09/24/17 11:34 Band Neutrophils % 4 % (0-2) H 09/24/17 11:34 Lymphocytes % (Manual) 8 % (20-40) L 09/24/17 11:34 Monocytes % (Manual) 3 % (0-10) 09/24/17 11:34 Metamyelocytes % 1 % (0-0) H 09/21/17 06:07 Myelocytes % 1 % (0-0) H 09/21/17 06:07 Nucleated RBC % 3 % (0-0) H 09/24/17 11:34 Differential Comment 09/22/17 06:20 Platelet Estimate Normal (NORMAL) 09/24/17 11:34 Large Platelets Present 09/24/17 06:48 Polychromasia Slight 09/24/17 11:34 Hypochromasia (manual) Slight 09/24/17 11:34 Poikilocytosis (manual Slight 09/24/17 11:34 Anisocytosis (manual) Slight 09/24/17 11:34 Microcytosis (manual) Slight 09/24/17 11:34 Macrocytosis (manual) Slight 09/24/17 11:34 Spherocytes Slight 09/24/17 11:34 Target Cells Slight 09/24/17 11:34 Tear Drop Cells Slight 09/24/17 11:34 Ovalocytes Slight 09/24/17 11:34 Schistocytes Slight 09/24/17 06:48 Retic Count 2.2 % (0.5-1.5) H 09/11/17 12:03 Haptoglobin 276 mg/dL (43-212) H 09/11/17 12:03 PT 10.3 SECONDS (9.7-12.2) 09/10/17 13:52 INR 0.9 09/10/17 13:52 APTT 34 SECONDS (21-34) 09/10/17 13:52 Puncture Site Rr 09/24/17 05:27 pCO2 27 mm/Hg (35-45) L 09/24/17 05:27 pO2 136 mm/Hg (80-100) H 09/24/17 05:27 HCO3 21.8 mmol/L (21-28) 09/24/17 05:27 ABG pH 7.46 (7.35-7.45) H 09/24/17 05:27 ABG Total CO2 20.0 mmol/L (22-28) L 09/24/17 05:27 ABG O2 Saturation 98.3 % (95-98) H 09/24/17 05:27 ABG Base Excess -4.0 mmol/L (-2.0-3.0) L 09/24/17 05:27 ABG Hemoglobin 7.6 g/dL (11.7-17.4) L 09/24/17 05:27 ABG Carboxyhemoglobin 1.1 % (0.5-1.5) 09/24/17 05:27 POC ABG HHb (Measured) 1.7 % (0.0-5.0) 09/24/17 05:27 ABG Methemoglobin 0.7 % (0.0-3.0) 09/24/17 05:27 Guy Test Pos 09/24/17 05:27 ABG Potassium 4.0 mmol/L (3.6-5.2) 09/20/17 09:30 VBG pH 7.25 (7.32-7.43) L 09/12/17 05:03 VBG pCO2 39 mmHg (40-60) L 09/12/17 05:03 VBG HCO3 17.0 mmol/L 09/12/17 05:03 VBG Total CO2 18.3 mmol/L (22-28) L 09/12/17 05:03 VBG O2 Sat (Calc) 85.5 % (40-65) H 09/12/17 05:03 VBG Base Excess -9.5 mmol/L (0.0-2.0) L 09/12/17 05:03 VBG Potassium 4.5 mmol/L (3.6-5.2) 09/12/17 05:03 A-a O2 Difference 115.0 mm/Hg 09/24/17 05:27 Respiratory Index 0.8 09/24/17 05:27 Hgb O2 Saturation 96.5 % (95.0-98.0) 09/24/17 05:27 Sodium 152.0 mmol/l (132-148) H 09/20/17 09:30 Chloride 117.0 mmol/L (98-107) H 09/20/17 09:30 Glucose 230 mg/dl (65-105) H 09/20/17 09:30 Lactate 1.6 mmol/L (0.7-2.1) 09/20/17 09:30 Liter Flow 4.0 09/20/17 09:30 Vent Mode Prvc 09/24/17 05:27 Mechanical Rate 14 09/24/17 05:27 FiO2 40.0 % 09/24/17 05:27 Tidal Volume 400 09/24/17 05:27 PEEP 5 09/24/17 05:27 Inspiratory BiPAP 12 09/20/17 13:35 Expiratory BiPAP 6 09/20/17 13:35 Crit Value Called To [facility] nurse catherine 09/15/17 17:48 Crit Value Called By Kalyan winston 09/15/17 17:48 Crit Value Read Back Y 09/15/17 17:48 Blood Gas Notified Time 1752 09/15/17 17:48 Sodium 145 mmol/L (132-148) 09/24/17 06:48 Potassium 4.2 mmol/L (3.6-5.2) 09/24/17 06:48 Chloride 110 mmol/L (98-107) H 09/24/17 06:48 Carbon Dioxide 22 mmol/L (22-30) 09/24/17 06:48 Anion Gap 17 (10-20) 09/24/17 06:48 BUN 57 mg/dL (7-17) H 09/24/17 06:48 Creatinine 1.7 mg/dL (0.7-1.2) H 09/24/17 06:48 Est GFR ( Amer) 35 09/24/17 06:48 Est GFR (Non-Af Amer) 29 09/24/17 06:48 POC Glucose (mg/dL) 315 mg/dL (65-110) H 09/24/17 23:25 Random Glucose 346 mg/dL (65-105) H 09/24/17 06:48 Hemoglobin A1c 7.8 % (4.2-6.5) H 09/10/17 17:36 Calcium 7.7 mg/dl (8.6-10.4) L 09/24/17 06:48 Phosphorus 4.4 mg/dL (2.5-4.5) 09/24/17 06:48 Magnesium 1.9 mg/dL (1.6-2.3) 09/24/17 06:48 Iron 44 ug/dL (37-170) 09/11/17 05:28 TIBC 220 ug/dL (250-450) L 09/11/17 05:28 % Saturation 81 (20-55) H 09/15/17 17:56 Ferritin 183.0 ng/mL 09/15/17 17:56 Total Bilirubin 0.8 mg/dL (0.2-1.3) 09/24/17 06:48 AST 43 U/L (14-36) H D 09/24/17 06:48 ALT 32 U/L (9-52) 09/24/17 06:48 Alkaline Phosphatase 53 U/L (38-126) 09/24/17 06:48 Total Creatine Kinase 203 U/L (30-135) H 09/20/17 06:37 CK-MB (Mass) 7.03 ng/mL (0.0-3.38) H 09/20/17 06:37 Troponin I 3.7800 ng/mL (0.00-0.120) H* 09/20/17 06:37 NT-Pro-B Natriuret Pep 78896 pg/mL (0-900) H 09/10/17 13:52 Total Protein 5.0 g/dL (6.3-8.3) L 09/24/17 06:48 Total Protein (PEP) 5.7 g/dL (6.1-8.1) L 09/11/17 09:16 Albumin 2.6 g/dL (3.5-5.0) L 09/24/17 06:48 Albumin (PEP) 3.1 g/dL (3.8-4.8) L 09/11/17 09:16 Globulin 2.4 gm/dL (2.2-3.9) 09/24/17 06:48 Albumin/Globulin Ratio 1.1 (1.0-2.1) 09/24/17 06:48 Htpnp-3-Qjchgsfey 0.3 g/dL (0.2-0.3) 09/11/17 09:16 Vvqhv-1-Xdfkmjtdg 0.9 g/dL (0.5-0.9) 09/11/17 09:16 Empt-7-Pretxpic 0.3 g/dL (0.4-0.6) L 09/11/17 09:16 Uvwe-9-Wpvrodxm 0.3 g/dL (0.2-0.5) 09/11/17 09:16 Gamma Globulins 0.8 g/dL (0.8-1.7) 09/11/17 09:16 Abnorm Protein Band 1 TEST NOT PERFORMED 09/11/17 09:16 Abnorm Protein Band 2 TEST NOT PERFORMED 09/11/17 09:16 Abnorm Protein Band 3 TEST NOT PERFORMED 09/11/17 09:16 Triglycerides 97 mg/dL (0-149) 09/10/17 17:36 Cholesterol 138 mg/dL (0-199) 09/10/17 17:36 LDL Cholesterol Direct 82 mg/dL (0-129) 09/10/17 17:36 HDL Cholesterol 33 mg/dL (30-70) 09/10/17 17:36 Vitamin B12 > 1000 pg/mL (239-931) H 09/11/17 12:03 Folate > 20.0 ng/mL 09/11/17 12:03 Procalcitonin 0.20 NG/ML (0.19-0.49) 09/20/17 06:37 Free T4 1.84 ng/dL (0.78-2.19) 09/10/17 17:36 TSH 3rd Generation 2.18 mIU/L (0.46-4.68) 09/10/17 17:36 PTH Intact Whole Molec 114 pg/mL (14-64) H 09/15/17 17:56 Arterial Blood Potassium 4.0 mmol/L (3.6-5.2) 09/20/17 09:30 Venous Blood Potassium 4.5 mmol/L (3.6-5.2) 09/12/17 05:03 Urine Color Yellow (YELLOW) 09/20/17 18:39 Urine Clarity Slight-cloudy (Clear) 09/20/17 18:39 Urine pH 5.0 (5.0-8.0) 09/20/17 18:39 Ur Specific Delta 1.018 (1.003-1.030) 09/20/17 18:39 Urine Protein 2+ mg/dL (NEGATIVE) H 09/20/17 18:39 Urine Glucose (UA) 1+ mg/dL (Normal) 09/20/17 18:39 Urine Ketones Trace mg/dL (NEGATIVE) 09/20/17 18:39 Urine Blood 3+ (NEGATIVE) H 09/20/17 18:39 Urine Nitrate Negative (NEGATIVE) 09/20/17 18:39 Urine Bilirubin Negative (NEGATIVE) 09/20/17 18:39 Urine Urobilinogen Normal mg/dL (0.2-1.0) 09/20/17 18:39 Ur Leukocyte Esterase 3+ Haider/uL (Negative) H 09/20/17 18:39 Urine WBC (Auto) 312 /hpf (0-5) H 09/20/17 18:39 Urine RBC (Auto) 279 /hpf (0-3) H 09/20/17 18:39 Urine WBC Clumps (Auto) Many /hpf (NONE) H 09/20/17 18:39 Ur Squamous Epith Cells 10 /hpf (0-5) H 09/20/17 18:39 Urine Bacteria Mod (<OCC) H 09/20/17 18:39 Hyaline Casts 3-5 /lpf (0-2) H 09/20/17 18:39 Urine Osmolality 287 mosm/kg (300-1000) L 09/11/17 01:32 Ur Random Creatinine 54.7 mg/dL 09/11/17 17:58 U Random Total Protein 40.0 mg/dL (0.0-12.0) H 09/11/17 17:58 Ur Random Sodium 58 mmol/L 09/11/17 17:11 Stool Occult Blood Negative (NEGATIVE) 09/13/17 21:43 Random Vancomycin 9.81 ug/mL 09/16/17 06:18 KARON & SPEP Interp See note 09/11/17 09:16 Serum Immunofixation Detected (Not Detected) H 09/11/17 09:16 Urine Immunofixation Not detected (Not Detected) 09/11/17 10:18 Heparin-induced Plt Ab Negative (Negative) 09/12/17 13:54 Free [place] Light Chains 55.1 mg/L (3.3-19.4) H 09/11/17 18:39 Free Lambda Light Chain 34.7 mg/L (5.7-26.3) H 09/11/17 18:39 Free [place]/Lambda Ratio 1.59 (0.26-1.65) 09/11/17 18:39 Hep Bs Antigen Negative (NEGATIVE) 09/23/17 17:22 Hep Bs Antibody Positive (NEGATIVE) 09/23/17 17:22 Hep B Core IgM Ab Negative (NEGATIVE) 09/23/17 17:22 Hepatitis C Antibody Negative (NEGATIVE) 09/23/17 17:22 Ur L.pneumophila Ag Negative (NEGATIVE) 09/11/17 21:29 Mycoplasma pneumon IgM Negative (NEGATIVE) 09/11/17 21:29 Blood Type O POSITIVE 09/12/17 07:15 Antibody Screen Negative 09/12/17 07:15 - Hospital Course Hospital Course: Per H&P, "CC: "Not feeling right" This patient is an 81yo F w/ a Pmhx of DM, HTN, HLD, 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 She denies all symptoms currently other than generalized muscle aches/ pain. She denies fevers/chills, LU, CP, SOB, abdominal pain, N/V/D, dysuria/freq /urg, or lower extremity swelling. The patient has lower extremity pain on baseline, which she states is not worse than usual. As per family at bedside, they say that she has been sleeping a lot more than normal the last few months and just doesn't seem like herself. They also state that her clothes arent fitting because she isn't eating as much as she used to, and they're essentially falling off of her. Pmhx: HTN, DM, HLD, "angina (on meds) Allergies: none Surgeries: lower extremity surgery; could not qualify which ones; patient cannot bend knees at baseline Meds: Amlodipine, Hctz/Losartan, Hydralazine, Lasix, Metformin, Glipizide, Statin Social: lives with daughter; can walk up stairs independently at baseline with cane; cooks for self, feeds self, changes self, bathes self, indepdent in ADL and most IADL at baseline" Patient admitted to the intensive care unit. Critical care, cardiology, nephrology, infectious disease, pulmonary, and palliative care consult during the course of patient's hospitalization. Patient required intubation for acute respiratory failure, was ultimately placed on dialysis, and underwent cardiac cath which indicated severe coronary artery disease and severe ejection fraction with associated severe anteroapical and inferoapical hypokinese with moderate aortic insufficiency. Patient transferred to [facility] for cardiothoracic/ CABG referral. Arrangements for transfer made by cardiology. This is a summary of patient's hospitalization. Please see below for summary of patient's diagnoses and workup. Further details please review EMR in full. Discharge Diagnoses (1) Triple vessel disease of the heart Assessment & Plan: Cardiology (Dr. whelan) on board-->help appreciated s/p 09/[address] Whelan 09/23, plan for CABG evaluation with Dr. Mendoza, cardiothoracic surgery for possible transfer to [facility] Discussed with shawn Tucker 09/23 who she and rest of family are of severity of patient's heart disease in light of co-morbidities Per Cardiac cath note: proximal LAD, proximal circumflex artery, and proximal first obtuse marginal branch with significant severely depressed ejection fractio: 35% severe anteroapical and inferoapical hypokinese Moderate aortic insuffiency. Per cardiology, patient is high risk surgical candidate and decision of surgery will left to cardiothoracic surgeon. pending transfer to [facility] for CABG evaluation when bed is available on aspirin, cardizem, statin, off michela/arb given renal insuffiency Status: Acute (2) Systolic heart failure secondary to coronary artery disease Assessment & Plan: Discussed with Dr. Whelan 09/23, plan for CABG evaluation with Dr. Mendoza, cardiothoracic surgery for possible transfer to [facility] Discussed with shawn Tucker 09/23 who she and rest of family are of severity of patient's heart disease in light of co-morbidities Per Cardiac cath note: proximal LAD, proximal circumflex artery, and proximal first obtuse marginal branch with significant severely depressed ejection fractio: 35% severe anteroapical and inferoapical hypokinese Moderate aortic insuffiency. Per cardiology, patient is high risk surgical candidate and decision of surgery will left to cardiothoracic surgeon. pending transfer to [facility] for CABG evaluation when bed is available 09/24 On aspirin, cardizem, statin, off michela/arb given acute renal insufficiency Started dialysis on 09/23/17 Status: Acute (3) Acute renal failure Assessment & Plan: Neprhology (Dr. Chowdhury) on board-->help appreciated patient started on HD 09/23 for first session, completed second session 09/24 procrit on board Status: Acute (4) Non-STEMI (non-ST elevated myocardial infarction) Assessment & Plan: on aspirin, cardizem statin (lipitor not available on formulary but preferred in CKD per Uptodate), off michela/arb given Acute renal insuffiency Status: Acute (5) Diabetes Assessment & Plan: a1c: 7.8 off PO medications on admission given acute renal insufficiency Hypoglycemic protocol Novolog Q6H sliding scale on tube feeding (glucerna) since 09/21 off long acting insulin Status: Chronic (6) Hypertension Assessment & Plan: On cardizem off michela/arb given renal insufficiency started dialysis on 09/23 Status: Chronic (7) Anemia Assessment & Plan: procrit on board Status: Chronic (8) Polypharmacy Assessment & Plan: On admission: patient had take her anti-hypertensives which is contributing factor to her hypotension on admission Status: Inactive (9) Pneumonia Assessment & Plan: ID on case On IV Cefazolin until 09/22/17 Afebrile since 09/22/17 Note completing Solumedrol for largyenal edema noted on reintubated 09/24 Status: Suspected (10) Laryngeal edema Assessment & Plan: completed solumedrol treatment; white count as a result 09/24 Status: Resolved (11) Prophylactic measure Assessment & Plan: Protonix 40mg IV q daily Heparin 5000 units [id number] Palliative care on board HD since 09/23/17 Patient is intubated and sedation-->management per ICU prevalon boots HD catheter Full code Status: Acute - Assessment and Plan (Free Text) Assessment: Pending transfer to [facility] for CABG evaluation when bed is available overnight from 09/24-09/25. Patient's PMD, Dr Morales notified in regards to patient's discharge to higher institution supporting CABG. Arrangements of transfer made by cardiology. Help appreciated. Please use physical exam from 09/24. - Date & Time of H&P Date of H&P: 09/10/17 Time of H&P: 18:00 Discharge Plan - Follow Up Plan Condition: FAIR Disposition: Trans to Other Acute Care Hosp
== END 2017-09-25 03:00 | disposition short-term general hospital (02) | DRG 280 ==
LOC: C.ER 12:54 → C.9E 16:50 → C.9I 18:54
PROVIDERS: ADMIT Family Medicine; ATTEND Family Medicine
PROC: 5A09457 Assistance with Respiratory Ventilation, 24-96 Consecutive Hours, Continuous Positive Airway Pressure (ICD-10-PCS; 2017-09-11)
PROC: 06HY33Z Insertion of Infusion Device into Lower Vein, Percutaneous Approach (ICD-10-PCS; 2017-09-11)
PROC: 30233N1 Transfusion of Nonautologous Red Blood Cells into Peripheral Vein, Percutaneous Approach (ICD-10-PCS; 2017-09-12)
PROC: 5A1945Z Respiratory Ventilation, 24-96 Consecutive Hours (ICD-10-PCS; 2017-09-13)
PROC: 0BH17EZ Insertion of Endotracheal Airway into Trachea, Via Natural or Artificial Opening (ICD-10-PCS; 2017-09-13)
PROC: 5A1955Z Respiratory Ventilation, Greater than 96 Consecutive Hours (ICD-10-PCS; principal; 2017-09-21)
PROC: 0BH17EZ Insertion of Endotracheal Airway into Trachea, Via Natural or Artificial Opening (ICD-10-PCS; 2017-09-21)
PROC: 02HV33Z Insertion of Infusion Device into Superior Vena Cava, Percutaneous Approach (ICD-10-PCS; 2017-09-21)
PROC: 5A1D70Z Performance of Urinary Filtration, Intermittent, Less than 6 Hours Per Day (ICD-10-PCS; 2017-09-23)
PROC: 4A023N7 Measurement of Cardiac Sampling and Pressure, Left Heart, Percutaneous Approach (ICD-10-PCS; 2017-09-23)
PROC: B211YZZ Fluoroscopy of Multiple Coronary Arteries using Other Contrast (ICD-10-PCS; 2017-09-23)
PROC: B215YZZ Fluoroscopy of Left Heart using Other Contrast (ICD-10-PCS; 2017-09-23)
PROC: B310YZZ Fluoroscopy of Thoracic Aorta using Other Contrast (ICD-10-PCS; 2017-09-23)
DX: I21.4 Non-ST elevation (NSTEMI) myocardial infarction (principal); J96.02 Acute respiratory failure with hypercapnia; J15.20 Pneumonia due to staphylococcus, unspecified; I50.43 Acute on chronic combined systolic (congestive) and diastolic (congestive) heart failure; E87.2 Acidosis; J38.4 Edema of larynx; N18.4 Chronic kidney disease, stage 4 (severe); N17.9 Acute kidney failure, unspecified; I27.20 Pulmonary hypertension, unspecified; E11.22 Type 2 diabetes mellitus with diabetic chronic kidney disease; R65.10 Systemic inflammatory response syndrome (SIRS) of non-infectious origin without acute organ dysfunction; D63.1 Anemia in chronic kidney disease; E86.0 Dehydration; R55 Syncope and collapse; E78.00 Pure hypercholesterolemia, unspecified; M81.0 Age-related osteoporosis without current pathological fracture; R62.7 Adult failure to thrive; R63.4 Abnormal weight loss; Z68.30 Body mass index [BMI] 30.0-30.9, adult; E66.9 Obesity, unspecified; Z99.2 Dependence on renal dialysis; Z79.4 Long term (current) use of insulin; Z86.12 Personal history of poliomyelitis; I25.10 Atherosclerotic heart disease of native coronary artery without angina pectoris; E87.6 Hypokalemia